=== PATIENT | female | born 1945 | race Caucasian/White ===

== ENCOUNTER 2022-11-18 08:03 | Outpatient (REF) | payer MEDICARE, SELFPAY ==
[2022-11-18 11:33] LABS: MANUAL DIFF FLAG NO
[2022-11-18 11:38] LABS: Basophils Absolute Auto 0.1 X10*3/uL (0.0-0.2); Basophils Percent Auto 1.2 % (0-2); Eosinophils Absolute Auto 0.3 X10*3/uL (0.0-0.4); Eosinophils Percent Auto 3.6 % (0-4); Hematocrit 42.2 % (37.0-47.0); Hemoglobin 13.6 g/dl (12.0-16.0); Imm Gran Abs Auto 0.04 X10*3/uL (0.00-0.03); Imm Gran Pct Auto 0.5 % (0.0-0.4); Lymphocytes Absolute Auto 2.4 X10*3/uL (1.2-4.9); Lymphocytes Percent Auto 29.3 % (20-40); Mean Corpuscular HGB Conc 32.2 g/dl (31.0-35.0); Mean Corpuscular Hemoglobin 29.2 pg (27.0-33.0); Mean Corpuscular Volume 90.8 fL (80.0-98.0); Mean Platelet Volume 11.1 fL (9.4-12.3); Monocytes Absolute Auto 0.7 X10*3/uL (0.1-1.2); Monocytes Percent Auto 9.2 % (2-11); Neutrophils Absolute Auto 4.5 x10*3/uL (2.0-8.3); Neutrophils Percent Auto 56.2 % (45-73); Platelet Count 339 X10*3/uL (160-400); Red Blood Count 4.65 X10*6/uL (4.20-5.50); Red Cell Distribution Width 13.6 % (11.0-16.0)
[2022-11-18 12:12] LABS: Estimated Average Glucose 114 mg/dL; Hemoglobin A1c % 5.6 %
[2022-11-18 12:19] LABS: Alanine Aminotransferase 25 U/L (0-31); Albumin Level 3.9 g/dL (3.5-5.0); Alkaline Phosphatase 60 U/L (39-117); Anion Gap 13 (12-20); Aspartate Amino Transferase 15 U/L (5-31); Bilirubin Total 0.3 mg/dL (0.0-1.0); Blood Urea Nitrogen 12 mg/dL (9-16); Calcium 9.4 mg/dL (8.4-10.2); Carbon Dioxide 25 mmol/L (22-29); Chloride 107 mmol/L (96-108); Cholesterol 140 mg/dL; Estimated Glomerular Filt Rate > 60; Glucose Fasting 114 mg/dL (60-99); HDL Cholesterol 40 mg/dL; LDL Cholesterol Calculated 79 mg/dl; Potassium 4.1 mmol/L (3.3-5.1); Sodium 141 mmol/L (135-145); Triglycerides 105 mg/dL
[2022-11-18 12:24] LABS: TSH reflex Free T4 1.11 uIU/mL (0.32-4.0); Vitamin D 25-OH Total 51.6 ng/mL (>30)
[2022-11-18 12:48] LABS: Folate 17.6 ng/mL (> or = 4.0); Vitamin B12 > 2000 pg/mL (200-900)
== END 2022-11-18 08:04 | disposition home or self-care (01) ==
LOC: HO.HMGCLDS 08:03
PROVIDERS: PCP Internal Medicine; Visit Provider Internal Medicine
DX: E66.9 Obesity, unspecified (principal); F32.A Depression, unspecified; F41.9 Anxiety disorder, unspecified; I10 Essential (primary) hypertension; K21.9 Gastro-esophageal reflux disease without esophagitis; M85.80 Other specified disorders of bone density and structure, unspecified site; R73.01 Impaired fasting glucose; E78.00 Pure hypercholesterolemia, unspecified
CPT/HCPCS: 36415; 80053; 80061; 82306; 82607; 82746; 83036; 84443; 85025

== ENCOUNTER 2022-12-20 13:42 | Outpatient (AMB) | payer MEDICARE, SELFPAY ==
[2022-12-20 13:57] VITALS: BP 134/74; PULSE 103; BMI 37.2
--- NOTE | 2022-12-20 13:57 | MHC.OFFVIS ---
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 female here today for pre colonoscopy screening.? Patient was sent to us by her PCP.? Patient believes that her last colonoscopy was over 10 years ago. Patient had normal Cologuard afterwards, however her last Cologuard came back positive.? Patient denies any gastrointestinal symptoms in the past or at present.? Denies any personal or family history of gastrointestinal disease, colon polyps, or cancer.? Denies history of difficulty with sedation or anesthesia in the past.? Negative for history of sleep apnea.? Denies any history of cardiac, renal, pulmonary, or hepatic disease.?? No history of infectious? diseases like hepatitis A, B, C, HIV or tuberculosis.? Patient is not on any anticoagulation therapy. [facility] Medical History Anxiety and depression Essential hypertension GERD (gastroesophageal reflux disease) History of low back pain Hypercholesterolemia Impaired fasting glucose Lumbar back pain with radiculopathy affecting left lower extremity Obesity (BMI 30-39.9) Osteopenia Paget's disease of the bone Surgical History H/O breast surgery History of appendectomy History of cholecystectomy History of lumbar discectomy History of partial hysterectomy Social History Housing: House Patient Tobacco Use Status: Former Tobacco user e-Cigarette/Vaping Use: Never Used Cognitive needs: No Hearing needs: No Vision needs: Yes Review of Systems Const Denies weight gain and Denies weight loss ENT Reports no additional complaints, Denies dysphagia and Denies odynophagia Card Reports no additional complaints Resp Reports no additional complaints GI Denies abdominal pain, Denies belching, Denies melena, Denies bloating, Denies change in bowel habits, Denies dysphagia, Denies excessive flatus, Denies dyspepsia, Denies heartburn, Denies diarrhea, Reports loose stools (Diet controlled), Denies nausea, Denies odynophagia and Denies vomiting Reports no additional complaints Musc Reports no additional complaints Neuro Reports no additional complaints Psych Reports no additional complaints Endo Reports no additional complaints Physical Exam Vital Signs: Last Vital Signs Pulse 103 H 12/20/22 13:57 BP 134/74 12/20/22 13:57 BMI result Body Mass Index 37.2 Const General: healthy appearing, no acute distress and well developed Nutritional Appearance: obese Orientation/consciousness: patient oriented x3 HEENT Head: Yes normal to inspection, Yes normocephalic and Yes atraumatic Face and sinus: Yes normal facial exam Mouth: Normal oral and palatal mucosa present Throat: Yes posterior oropharynx normal, Yes tonsils normal and Yes uvula midline Eyes General: appearance normal, both eyes and all related structures Neck Neck: Yes normal visual inspection, Yes full ROM and Yes trachea midline Thyroid: Thyroid normal Resp Effort & Inspection: normal respiratory effort, able to speak in complete sentences, no tracheal deviation and symmetric chest movement Auscultation: clear to auscultation bilaterally Cardio Rate: regular rate Heart sounds: S1 normal heart sound present, S2 normal heart sound present, no gallops and no murmurs GI Inspection: Yes normal to inspection, No distended and Yes obesity Palpation (GI): Soft to palpation, not firm, nontender and No hepatosplenomegaly present Auscultation: normal bowel sounds General: Yes no CVA tenderness Back/Spine/Pelvis Back: no CVA tenderness Skin General skin exam: elasticity normal, turgor normal and dry skin Neuro General: patient oriented x3 Psych Appearance: grossly normal Mental Status: mental status grossly normal Speech and movement: Normal speech and movement present Assessment & Plan Assessment & Plan (1) Positive colorectal cancer screening using Cologuard test: Code(s): R19.5 - Other fecal abnormalities Plan: .Patient denies any cardiac or respiratory symptoms.? Occasional postprandial loose stools depending on the food that she eats. Denies any issues with anesthesia in the past.? Denies any history of sleep apnea.? No history infectious diseases in the past or present.? Not on any anticoagulation therapy.? No family or personal history of colon cancer. ? Patient denies melena, hematochezia, unintentional weight loss or ribbon like stools.? Discussed at length the pre-procedure,? prep, diet & medications as well as what to expect prior, during and after the procedure.?? Patient is on Ozempic for weight loss. Will schedule procedure week after she takes the medication due to decreased gastric motility to prevent aspiration. Stressed the importance of good bowel prep. ?Recommended the use of Vaseline or Calmoseptine OTC & baby wipes with bowel movements to promote comfort.? ?Patient verbalizes understanding and agrees to plan of care.? She was given the opportunity to ask questions and all questions answered.? We will see her after the procedure.? Medications: New bisacodyl (Dulcolax (bisacodyl)) take 2 tabs at noon the day before your colonoscopy 10 mg (2 x 5 mg) PO ONCE 2 tabs 0RF 1 day Z12.11 - Encounter for screening for malignant neoplasm of colon polyethylene glycol 3350 (Miralax) As directed by gastroenterology department at [facility] 238 grams PO ONCE 238 grams 0RF Z12.11 - Encounter for screening for malignant neoplasm of colon methylcellulose (laxative) (Citrucel) take it with full glass of water 500 mg PO DAILY 90 tabs 2RF K59.00 - Constipation, unspecified Coding Level of Care Code New Pt Level 3 (24106) Diagnoses Positive colorectal cancer screening using Cologuard test R19.5 Time Spent (min) 40 Comment 30 minutes spent with patient and additional 10 minutes spent reviewing her records
== END 2022-12-20 15:13 | disposition home or self-care (01) ==
PROVIDERS: PCP Internal Medicine; Visit Provider Nurse Practitioner Family
DX: R19.5 Other fecal abnormalities (principal)
CPT/HCPCS: 99203

== ENCOUNTER → 2022-12-20 13:42 | Outpatient (BNVA) | payer MEDICARE, SELFPAY | PROVIDERS: PCP Internal Medicine; Visit Provider Nurse Practitioner Family | DX: R19.5 Other fecal abnormalities (principal) | CPT/HCPCS: 99202 ==

== ENCOUNTER 2023-02-02 06:23 | Day surgery (SDC) | payer MEDICARE, SELFPAY ==
[2023-01-30 15:27] VITALS: BMI 37.2
--- NOTE | 2023-02-01 13:18 | HO.ANESPROP2 ---
Documented by User: Cassie Cano NP 02/01/23 13:19 HPI - Anesthesia Eval Consult details Narrative: 77yo F for Colonoscopy PMFSH Active Problems Active Problems: All Active Problems (Updated 12/02/22 @ 14:10 by Julianna Beckwith MD) Positive colorectal cancer screening using Cologuard test (Acute) Essential hypertension (Acute) Anxiety and depression (Acute) Impaired fasting glucose (Acute) GERD (gastroesophageal reflux disease) (Acute) Osteopenia (Acute) Hypercholesterolemia (Acute) History of low back pain (Acute) Obesity (BMI 30-39.9) (Acute) Lumbar back pain with radiculopathy affecting left lower extremity (Acute) Past Medical History Medical History Anxiety and depression Essential hypertension GERD (gastroesophageal reflux disease) History of low back pain Hypercholesterolemia Impaired fasting glucose Lumbar back pain with radiculopathy affecting left lower extremity Obesity (BMI 30-39.9) Osteopenia Paget's disease of the bone Surgical History Surgical History H/O breast surgery History of appendectomy History of cholecystectomy History of lumbar discectomy History of partial hysterectomy Social History Social History Housing: House Patient Tobacco Use Status: Former Tobacco user e-Cigarette/Vaping Use: Never Used Cognitive needs: No Hearing needs: No Vision needs: Yes Meds Allergies Allergy/AdvReac Type Severity Reaction Status Date / Time oxycodone Allergy Intermediate Vomiting Verified 01/30/23 15:16 codeine AdvReac Intermediate seizure Verified 01/30/23 15:16 Home Medications Medication Instructions Recorded Confirmed Last Taken Type alpha lipoic acid 100 mg capsule 100 mg PO DAILY 11/02/22 01/30/23 Unknown History ascorbate calcium (vitamin C) 500 500 mg PO DAILY 11/02/22 01/30/23 Unknown History mg tablet calcium citrate 630 mg PO DAILY 11/02/22 01/30/23 Unknown History cholecalciferol (vitamin D3) 25 25 mcg PO DAILY 11/02/22 01/30/23 Unknown History mcg (1,000 unit) capsule echinacea 400 mg capsule 400 mg PO TID 11/02/22 01/30/23 Unknown History multivitamin 1 tab PO DAILY 11/02/22 01/30/23 Unknown History omega-3 fatty acids 1,000 mg 1,000 mg PO DAILY 11/02/22 01/30/23 Unknown History capsule pantoprazole 40 mg tablet,delayed 40 mg PO DAILY 11/02/22 01/30/23 Unknown History release procyanidolic oligomers 50 mg mg PO 11/02/22 Unknown History capsule semaglutide 1 mg/dose (2 mg/1.5 1 mg subcut QWEEK 11/02/22 01/30/23 Unknown History mL) subcutaneous pen injector (Ozempic) Exam Exam Date and Time: February 01, 2023 1318 Height,Weight and Vital Signs: Height 5 ft 1 in Weight 89.358 kg Pertinent Lab Results Pertinent Lab Results: Laboratory Tests 11/18/22 08:08 WBC 8.0 Hgb 13.6 Hct 42.2 Plt Count 339 Sodium 141 Potassium 4.1 Chloride 107 Carbon Dioxide 25 BUN 12 Creatinine 0.88 Assessment and Plan Assessment Anesthesia Assessment: Chart Reviewed Documented by User: Laith Sorensen MD 02/02/23 16:41 PMFSH Past Medical History Medical History Anxiety and depression Essential hypertension GERD (gastroesophageal reflux disease) History of low back pain Hypercholesterolemia Impaired fasting glucose Lumbar back pain with radiculopathy affecting left lower extremity Obesity (BMI 30-39.9) Osteopenia Paget's disease of the bone Functional capacity: independent ambulation Family History Family history of problems with anesthesia: No Surgical History Surgical History H/O breast surgery History of appendectomy History of cholecystectomy History of lumbar discectomy History of partial hysterectomy History of Problems with Anesthesia: No Social History Social History Housing: House Patient Tobacco Use Status: Former Tobacco user e-Cigarette/Vaping Use: Never Used Cognitive needs: No Hearing needs: No Vision needs: Yes Meds Allergies Allergy/AdvReac Type Severity Reaction Status Date / Time oxycodone Allergy Intermediate Vomiting Verified 01/30/23 15:16 codeine AdvReac Intermediate seizure Verified 01/30/23 15:16 Home Medications Medication Instructions Recorded Confirmed Last Taken Type alpha lipoic acid 100 mg capsule 100 mg PO DAILY 11/02/22 01/30/23 Unknown History ascorbate calcium (vitamin C) 500 500 mg PO DAILY 11/02/22 01/30/23 Unknown History mg tablet calcium citrate 630 mg PO DAILY 11/02/22 01/30/23 Unknown History cholecalciferol (vitamin D3) 25 25 mcg PO DAILY 11/02/22 01/30/23 Unknown History mcg (1,000 unit) capsule echinacea 400 mg capsule 400 mg PO TID 11/02/22 01/30/23 Unknown History multivitamin 1 tab PO DAILY 11/02/22 01/30/23 Unknown History omega-3 fatty acids 1,000 mg 1,000 mg PO DAILY 11/02/22 01/30/23 Unknown History capsule pantoprazole 40 mg tablet,delayed 40 mg PO DAILY 11/02/22 01/30/23 Unknown History release procyanidolic oligomers 50 mg mg PO 11/02/22 Unknown History capsule semaglutide 1 mg/dose (2 mg/1.5 1 mg subcut QWEEK 11/02/22 01/30/23 Unknown History mL) subcutaneous pen injector (Ozempic) Exam Airway Mallampati Class: IV Loose/Missing/Broken Teeth: Yes Assessment and Plan Assessment Anesthesia Assessment: Anesthesia Plan Discussed Final Anesthetic Review Family History of Problems with Anesthesia: No History of Problems with Anesthesia: No NPO: Yes ASA Class: III Final Preanesthetic Review: Meds/Allgs Chart Reviewed, Consent Obtained/Reviewed and Anes Risks/Benef Reviewed Patient Risk: Intermediate Procedure Risk: Intermediate Anesthetic Plan Anesthetic Plan: MAC: and Agree w/ Assess. and Plan Disposition: Standard PACU
[2023-02-02 06:43] VITALS: BP 158/85; PULSE 107; RESP 18; TEMP 36.4; O2SAT 94; BMI 37.8
--- NOTE | 2023-02-02 07:01 | MHC.SHP ---
Pre-Procedural Eval Section A Date of Service: 02/02/23 Section B Chief Complaint: Other fecal abnormalities Relevant Family History (Specify if Yes): No Relevant Social History: None Present Medications: see Short Stay Collaborative assessment Medical History: Significant History (Anxiety and depression Essential hypertension GERD (gastroesophageal reflux disease) History of low back pain Hypercholesterolemia Impaired fasting glucose Lumbar back pain with radiculopathy affecting left lower extremity Obesity (BMI 30-39.9) Osteopenia Paget's disease of the bone) History of Previous Operations: Relevant previous surgery/procedure and date(s) (H/O breast surgery History of appendectomy History of cholecystectomy History of lumbar discectomy History of partial hysterectomy) Allergies: Allergies Allergy/AdvReac Type Severity Reaction Status Date / Time oxycodone Allergy Intermediate Vomiting Verified 01/30/23 15:16 codeine AdvReac Intermediate seizure Verified 01/30/23 15:16 Review of Systems Sugical H&P ROS: Negative: Constitution, Cardiovascular, Respiratory, Neurological, Psychiatric, Hem-Onc, Allergic/Immunologic, Gastrointestinal, Genitourinary, Musculoskeletal, Integumentary, Endocrine and Eyes/Ears/Nose/Throat Exam Surgical H&P Exam: Normal: HEENT, Normal: Heart, Normal: Lungs, Normal: Extremities, Normal: Abdomen, Normal: Skin and Normal: Neurological Plan Diagnosis/Plan: Unchanged I have reviewed the history and physical and performed a pertinent physical examination on my patient. No changes have occurred unless specified. Time Spent With Patient Time: Total time managing care of this patient today ____ minutes.
[2023-02-02] MEDS: Lactated Ringers 1,000 ML 100 ML IVCONT (07:29)
--- NOTE | 2023-02-02 08:53 | P.OP_ITS ---
Operative Note Operative Note Date of Service: 02/02/23 Narrative: Operative Information Procedure Description: Colonoscopy Indication: pos cologuard Anesthesia: MAC COLONOSCOPY Instrument: Olympus variable stiffness pediatric scope 190L Colonoscopy Monitoring: Vital signs and clinical assessment, continuous EKG monitoring, Pulse oximetry, Carbon Dioxide monitoring and blood pressure monitoring were done throughout the procedure. Colon withdrawal time was 16 minutes. Procedure: The patient was placed in the left lateral decubitis position and pre-procedure medications were administered. After a digital rectal examination of the ano-rectum, the video colonoscope was inserted into the rectum and advanced through the colon to the cecum/TI. The colonoscope was slowly withdrawn in a retrograde panoramic fashion and the colon mucosa was carefully examined including a retroflexed view of the rectum. Findings and interventions are described below. 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 1 = Portion of mucosa of the colon segment seen, but other areas of the colon segment not well seen due to staining, residual stool and/or opaque liquid. 2 = Minor amount of residual staining, small fragments of stool and/or opaque liquid, but mucosa of colon segment seen well. 3 = Entire mucosa of colon segment seen well with no residual staining, small fragments of stool or opaque liquid) Impression and Post Procedure Diagnosis: polyp internal hemorrhoids diverticular disease AVM Plan: High fiber diet leaflet Avoid straining at stool, epsom salts and sitz bath, anusol supps or cream Repeat Colonoscopy in 3-5 years if health allows and patient agreeable or earlier if clinically indicated Above findings were reviewed with the patient and relevant handouts were provided if indicated.
[2023-02-02 08:57] VITALS: BP 148/85; PULSE 115; RESP 16; TEMP 37; O2SAT 96
[2023-02-02 09:13] VITALS: BP 149/90; PULSE 118; RESP 18; O2SAT 96
[2023-02-02 09:27] VITALS: BP 143/78; PULSE 104; RESP 18; O2SAT 96
[2023-02-02 09:45] VITALS: BP 157/83; PULSE 113; RESP 18; O2SAT 96
[2023-02-02 09:58] VITALS: BP 157/83; PULSE 108; RESP 18; TEMP 37; O2SAT 96
== END 2023-02-02 10:45 | disposition home or self-care (01) ==
PROVIDERS: PCP Internal Medicine; Visit Provider Internal Medicine Gastroenterology
PROC: 0DJD8ZZ Inspection of Lower Intestinal Tract, Via Natural or Artificial Opening Endoscopic (ICD-10-PCS; CPT 45378; principal; 2023-02-02 07:30)
DX: R19.5 Other fecal abnormalities (principal); D12.5 Benign neoplasm of sigmoid colon; K57.30 Diverticulosis of large intestine without perforation or abscess without bleeding; K64.0 First degree hemorrhoids; K55.20 Angiodysplasia of colon without hemorrhage; I10 Essential (primary) hypertension; K21.9 Gastro-esophageal reflux disease without esophagitis; E78.00 Pure hypercholesterolemia, unspecified; R73.01 Impaired fasting glucose; M88.9 Osteitis deformans of unspecified bone; Z79.899 Other long term (current) drug therapy; Z88.5 Allergy status to narcotic agent; Z90.49 Acquired absence of other specified parts of digestive tract; Z98.890 Other specified postprocedural states; Z87.891 Personal history of nicotine dependence
CPT/HCPCS: 45385; 45381; 88305; J2250; J2765

== ENCOUNTER → 2023-02-02 06:23 | Outpatient (BNV) | payer MEDICARE, SELFPAY | PROVIDERS: PCP Internal Medicine; Visit Provider Internal Medicine Gastroenterology | DX: Z12.11 Encounter for screening for malignant neoplasm of colon (principal); D12.5 Benign neoplasm of sigmoid colon; K57.30 Diverticulosis of large intestine without perforation or abscess without bleeding; K64.9 Unspecified hemorrhoids | CPT/HCPCS: 45381; 45385 ==

== ENCOUNTER 2023-02-17 14:07 | Outpatient (AMB) | payer MEDICARE, SELFPAY ==
--- NOTE | 2023-02-17 14:11 | A.OFFVIS_ITS ---
Intake Vital Signs 02/17/23 14:14 Height 5 ft Weight 200 lb BMI 39.1 BP 138/63 Blood Pressure Location Lt brachial Position Sitting Pulse 97 Intake Visit Reasons: s/P [place]; Dr. Tijerina Intake Note: Patient follow up for Colonoscopy results. Patient cc: acid reflex, and some diarrhea. Denies any other GI issues. Area Counselor Required: No Accompanied by: Self / Same As Patient Allergies oxycodone Allergy (Intermediate, Verified 02/17/23 14:10) Vomiting codeine Adverse Reaction (Intermediate, Verified 02/17/23 14:10) seizure HPI s/P [place]; Dr. Tijerina HPI Details LAST VISIT Positive colorectal cancer screening using Cologuard test Patient denies any cardiac or respiratory symptoms.? Occasional postprandial loose stools depending on the food that she eats. Denies any issues with a nesthesia in the past.? Denies any history of sleep apnea.? No history infectious diseases in the past or present.? Not on any anticoagulation therapy.? No family or personal history of colon cancer. ? Patient denies melena, hematochezia, unintentional weight loss or ribbon like stools.? Discussed at length the pre-procedure,? prep, diet & medications as well as what to expect prior, during and after the procedure.?? Patient is on Ozempic for weight loss. Will schedule procedure week after she takes the medication due to decreased gastric motility to prevent aspiration. Stressed the importance of good bowel prep. ?Recommended the use of Vaseline or Calmoseptine OTC & baby wipes with bowel movements to promote comfort.? ?Patient verbalizes understanding and agrees to plan of care.? She was given the opportunity to ask questions and all questions answered.? We will see her after the procedure.? 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 1 = Portion of mucosa of the colon segme nt seen, but other areas of the colon segment not well seen due to staining, residual stool and/or opaque liquid. 2 = Minor amount of residual staining, s mall fragments of stool and/or opaque liquid, but mucosa of colon segment seen well. 3 = Entire mucosa of colon segment seen well with no residual staining, small fragments of stool or opaque liquid) Impression and Post Procedure Diagnosis: polyp internal hemorrhoids diverticular disease AVM Plan: High fiber diet leaflet Avoid straining at stool, epsom salts and sitz bath, anusol supps or cream Repeat Colonoscopy in 3-5 years if health allows and patient agreeable or earlier if clinically indicated PATHOLOGY RESULTS: Diagnosis Colon, sigmoid, polypectomy: Tubular adenoma; negative for high-grade dysplasia. [facility], [facility] Medical History (Updated 02/17/23 @ 15:38 by Emily Terry, [facility]) Tubular adenoma History of adenomatous polyp of colon Lumbar back pain with radiculopathy affecting left lower extremity Obesity (BMI 30-39.9) History of low back pain Hypercholesterolemia Paget's disease of the bone Osteopenia GERD (gastroesophageal reflux disease) Impaired fasting glucose Anxiety and depression Essential hypertension Surgical History History of partial hysterectomy History of appendectomy History of cholecystectomy H/O breast surgery History of lumbar discectomy Social History Housing: House Patient Tobacco Use Status: Former Tobacco user e-Cigarette/Vaping Use: Never Used Cognitive needs: No Hearing needs: No Vision needs: Yes Review of Systems Const Denies weight gain and Denies weight loss ENT Reports no additional complaints, Denies dysphagia and Denies odynophagia Card Reports no additional complaints Resp Reports no additional complaints GI Denies abdominal pain, Denies belching, Denies melena, Reports bloating, Reports constipation, Denies dysphagia, Denies excessive flatus, Denies dyspepsia, Reports heartburn, Denies diarrhea, Reports loose stools, Denies nausea, Denies odynophagia and Denies vomiting Reports no additional complaints Musc Reports no additional complaints Neuro Reports no additional complaints Psych Reports no additional complaints Endo Reports no additional complaints Physical Exam Vital Signs: Last Vital Signs Pulse 97 02/17/23 14:14 BP 138/63 02/17/23 14:14 BMI result Body Mass Index 39.1 Const General: cooperative, healthy appearing and comfortable Nutritional Appearance: obese Orientation/consciousness: patient oriented x3 Limitations: no limitations HEENT Head: Yes normal to inspection Ears: hearing grossly normal bilaterally General nose exam: Normal external nose present Face and sinus: Yes normal facial exam Mouth: Normal oral and palatal mucosa present Throat: Yes posterior oropharynx normal Eyes General: appearance normal, both eyes and all related structures Eyelids: Yes eyelids normal Conjunctivae: conjunctivae normal Sclerae: sclerae normal Pupils: Equal, round and reactive pupils present Neck Neck: Yes normal visual inspection, Yes full ROM, Yes no lymphadenopathy, Yes trachea midline and Yes supple Thyroid: Thyroid normal Lymphatic: no lymphadenopathy noted Chest Chest palpation & inspection: normal inspection of the chest Resp Effort & Inspection: normal respiratory effort and able to speak in complete sentences Auscultation: clear to auscultation bilaterally Cardio Rate: regular rate Rhythm: regular rhythm Heart sounds: S1 normal heart sound present and S2 normal heart sound present GI Inspection: Yes normal to inspection, No distended and Yes obesity Palpation (GI): No hepatosplenomegaly present and No Rebound tenderness present Percussion: Yes normal to percussion Auscultation: normal bowel sounds General: Yes no CVA tenderness Back/Spine/Pelvis Back: no CVA tenderness Cervical Spine: cervical ROM normal and No cervical muscular tenderness Thoracic/Lumbar Spine: thoracic and lumbar spine normal to inspection Skin General skin exam: no rashes or lesions noted, elasticity normal and turgor normal Neuro General: patient oriented x3 Cranial nerves: Yes Equal, round and reactive pupils present Extrem General: Yes normal to inspection, Yes full ROM and Yes capillary refill normal Psych Appearance: grossly normal Mental Status: mental status grossly normal Speech and movement: Normal speech and movement present Assessment & Plan Assessment & Plan (1) Tubular adenoma: Code(s): D36.9 - Benign neoplasm, unspecified site Plan: One tubular adenoma found in sigmoid colon. Clip placed. Patient will need to repeat colonoscopy in 3 years, sooner if clinically necessary. (2) GERD (gastroesophageal reflux disease): Code(s): K21.9 - Gastro-esophageal reflux disease without esophagitis Qualifiers: Esophagitis presence: esophagitis presence not specified Qualified Code(s): K21.9 - Gastro-esophageal reflux disease without esophagitis Plan: Occasional acid reflux, long treatment with pantoprazole. Patient will try to avoid dietary triggers. She would like to stay on at. Discussed with patient the importance of avoiding dietary triggers and late night snacking. Staying upright for minimum 3 hours after meals discussed with patient (3) IBS (irritable bowel syndrome): Code(s): K58.9 - Irritable bowel syndrome without diarrhea Qualifiers: Irritable bowel syndrome type: with both diarrhea and constipation Qualified Code(s): K58.2 - Mixed irritable bowel syndrome Plan: Occasional loose stools postprandially then constipation. Discussed with patient avoiding dietary triggers were low FODMAP diet discussed with patient. List of food of recommended as well as list of food to avoid given to patient. (4) Postprandial diarrhea: Code(s): K52.9 - Noninfective gastroenteritis and colitis, unspecified Plan: Occasional postprandial loose stools. However patient reports that she is constipated and does not feel like she empties her bowels completely. Patient tried Citrucel in the past and felt bounded for few days. Patient has loose stools postprandial room most likely related to food and the fact that she is ac tually constipated. Will send her script for MiraLax so she can empty her bowels completely. Patient will call if she feels like she is unable to empty her bowels completely. Patient was also encouraged to increase fluid intake and activity to promote better bowel motility. I will see her in 6 months, sooner on as needed basis. Patient is agreeable to this plan and verbalizes understanding of instructions. She was given the opportunity to ask questions and all questions answered. Thank you for allowing me to participate in her care Medications: New polyethylene glycol 3350 (Miralax) 17 grams PO DAILY 510 grams 2RF Coding Level of Care Code Est Pt Level 4 (21297) Diagnoses Tubular adenoma D36.9 Gastroesophageal reflux disease, unspecified whether esophagitis present K21.9 Esophagitis presence: esophagitis presence not specified Irritable bowel syndrome with both constipation and diarrhea K58.2 Irritable bowel syndrome type: with both diarrhea and constipation Postprandial diarrhea K52.9 Time Spent (min) 35 Comment 20 minutes spent with patient and additional 15 minutes spent reviewing her records
[2023-02-17 14:14] VITALS: BP 138/63; PULSE 97; BMI 39.1
== END 2023-02-17 14:50 | disposition home or self-care (01) ==
PROVIDERS: PCP Internal Medicine; Visit Provider Nurse Practitioner Family
DX: D12.5 Benign neoplasm of sigmoid colon (principal); K21.9 Gastro-esophageal reflux disease without esophagitis; K58.0 Irritable bowel syndrome with diarrhea; K55.20 Angiodysplasia of colon without hemorrhage
CPT/HCPCS: 99214

== ENCOUNTER → 2023-02-17 14:07 | Outpatient (BNVA) | payer MEDICARE, SELFPAY | PROVIDERS: PCP Internal Medicine; Visit Provider Nurse Practitioner Family | DX: K21.9 Gastro-esophageal reflux disease without esophagitis (principal); K58.2 Mixed irritable bowel syndrome; K52.9 Noninfective gastroenteritis and colitis, unspecified; D36.9 Benign neoplasm, unspecified site | CPT/HCPCS: 99212 ==

== ENCOUNTER 2023-03-02 09:12 | Outpatient (REF) | payer MEDICARE, SELFPAY ==
[2023-03-02 12:10] LABS: Anion Gap 13 (12-20); Blood Urea Nitrogen 12 mg/dL (9-16); Calcium 9.3 mg/dL (8.4-10.2); Carbon Dioxide 25 mmol/L (22-29); Chloride 107 mmol/L (96-108); Estimated Glomerular Filt Rate > 60; Glucose Fasting 144 mg/dL (60-99); Potassium 4.3 mmol/L (3.3-5.1); Sodium 141 mmol/L (135-145)
[2023-03-02 12:37] LABS: Vitamin B12 836 pg/mL (200-900)
== END 2023-03-02 09:13 | disposition home or self-care (01) ==
LOC: HO.HMGCLDS 09:12
PROVIDERS: PCP Internal Medicine; Visit Provider Internal Medicine
DX: I10 Essential (primary) hypertension (principal); R74.8 Abnormal levels of other serum enzymes
CPT/HCPCS: 36415; 80048; 82607; 82746

== ENCOUNTER 2023-03-07 12:57 | Outpatient (AMB) | payer MEDICARE, SELFPAY ==
--- NOTE | 2023-03-07 13:03 | A.OFFPC_ITS ---
Vital Signs 03/07/23 13:05 Height 5 ft Weight 201 lb BMI 39.3 BP 120/68 Blood Pressure Location Lt brachial Position Sitting Pulse 99 Pulse Source Pulse Oximeter Pulse Oximetry (%) 95 Oxygen Delivery Method Room Air Intake Visit Reasons: 3 mo followup lipids, depression Intake Note: Pt is here today for her 3 mo. f/u lipids and depression Allergies oxycodone Allergy (Intermediate, Verified 03/07/23 13:14) Vomiting codeine Adverse Reaction (Intermediate, Verified 03/07/23 13:14) seizure Medication List - Last Reconciled 03/07/23 by Sharron Roque MD alpha lipoic acid 100 mg PO DAILY ascorbate calcium (vitamin C) 500 mg PO DAILY calcium citrate 630 mg PO DAILY cholecalciferol (vitamin D3) 25 mcg PO DAILY citalopram 20 mg PO DAILY echinacea 400 mg PO TID methylcellulose (laxative) (Citrucel) 500 mg PO DAILY multivitamin 1 tab PO DAILY olmesartan 40 mg PO DAILY omega-3 fatty acids 1,000 mg PO DAILY pantoprazole 40 mg PO DAILY polyethylene glycol 3350 (Miralax) 17 grams PO DAILY Tobacco use date assessed: 03/07/23 Fall risk assessment: No Falls in past year Last assessed Fall Risk: 03/07/23 Dental Screening Dental Screen Date: 03/07/23 Did you have a dental visit in the last 12 months?: Yes Did you have a dental problem in the last 6 months where you did not have access to dental care?: No Was dental information given to patient?: Patient has dentist HPI 3 mo followup lipids, depression HPI Details 77-year-old lady here today for follow-u p on her hypertension, lipids, prediabetes, and depression. She is currently taking Charlotte 3 fatty acids citalopram and olmesartan, with blood pressure within normal limits, and patient states depression is well controlled on current meds. She had recent fasting labs done which showed electrolytes, renal function, vitamin B12 and vitamin-D level within normal limits, but fasting glucose was at 144 mg/dL. Her hemoglobin A1c however is at 5.8%. Complains of decreased hearing, would like a referral to ENT. Complains of getting up every 2 hours at night to urinate, and has had several accidents her in she would lose bladder control while sleeping. She however states that during the day she does not go to the bathroom to urinate frequently. Has tried not to drink any fluids after 18:00. [facility] Medical History (Updated 03/08/23 @ 01:36 by Sharron Roque MD) Hearing impairment Tubular adenoma History of adenomatous polyp of colon Lumbar back pain with radiculopathy affecting left lower extremity Obesity (BMI 30-39.9) History of low back pain Hypercholesterolemia Paget's disease of the bone Osteopenia GERD (gastroesophageal reflux disease) Impaired fasting glucose Anxiety and depression Essential hypertension Surgical History History of partial hysterectomy History of appendectomy History of cholecystectomy H/O breast surgery History of lumbar discectomy Social History Housing: House Patient Tobacco Use Status: Former Tobacco user e-Cigarette/Vaping Use: Never Used service: No Current occupational status: retired Cognitive needs: No Hearing needs: No Vision needs: Yes Questionnaire PHQ-9 Over the last 2 weeks, how often have you been bothered by any of the following problems? 1. Little interest or pleasure in doing things: not at all 2. Feeling down, depressed, or hopeless: not at all 3. Trouble falling or staying asleep, or sleeping too much: not at all 4. Feeling tired or having little energy: not at all 5. Poor appetite or overeating: not at all 6. Feeling bad about yourself - or that you are a failure or have let yourself or your family down: not at all 7. Trouble concentrating on things, such as reading the newspaper or watching television: not at all 8. Moving or speaking so slowly that other people could have noticed. Or the opposite - being so fidgety or restless that you have been moving around a lot more than usual: not at all 9. Thoughts that you would be better off or of hurting yourself in some way: not at all Total score: 0 Depression Screening Interpretation: Negative Depression Screening Done: Yes 60536 - PHQ-9 Billing: Yes Source: Developed by Drs. Dinh Trejo, Nicole Bhagat, Bari Sheikh and colleagues, with an educational melvin from [employer] Thrive Questionnaire Date Thrive assessed: 03/07/23 What is your living situation today?: I have a steady place to live Within the past 12 months, did the food you bought not last and you didn't have the money to get more?: Never true Within the past 12 months, did you worry whether your food would run out before you got money to buy more?: Never true Do you have trouble paying for medicines?: No Do you have trouble getting transportation to medical appointments?: No Do you have trouble paying your heating and electricity bill?: No Do you have trouble taking care of your child, family member or friend?: No Do you have trouble with day-to-day activities such as bathing, preparing meals, shopping, managing finances, etc.?: No Are you currently unemployed and looking for a job?: No Are you interested in more education?: No AUDIT C Alcohol Use Questionnaire (AUDIT-C) 1. How often do you have a drink containing alcohol?: Monthly or less 2. How many drinks containing alcohol do you have on a typical day when you are drinking?: 1 or 2 3. How often do you have six or more drinks on one occasion?: Never Total Score: 1 PARISH-7 AMB Questionnaire PARISH-7 Date PARISH - 7 assessed: 03/07/23 Feeling nervous, anxious, or on edge: 0 = Not at all Not being able to stop or control worryin = Not at all Worrying too much about different things: 0 = Not at all Trouble relaxin = Not at all Being so restless that it is hard to sit still: 0 = Not at all Becoming easily annoyed or irritable: 0 = Not at all Feeling afraid as if something awful might happen: 0 = Not at all Total PARISH-7 score (0-4 normal; 5-9 mild; 10-14 moderate; 15-21 severe): 0 Source: Developed by Drs. Dinh Trejo, Nicole Bhagat, Bari Sheikh and colleagues, with an educational melvin from [employer]. Review of Systems Const Reports no additional complaints Eyes Reports no additional complaints ENT Reports as per HPI, Denies dysphagia and Denies odynophagia Card Denies chest pain at rest, Denies chest pain with activity, Denies irregular heart rhythm and Denies lightheadedness Resp Reports no additional complaints GI Denies abdominal pain, Denies belching, Denies melena, Reports bloating, Reports constipation, Denies dysphagia, Denies excessive flatus, Denies dyspepsia, Reports heartburn, Denies diarrhea, Reports loose stools, Denies nausea, Denies odynophagia and Denies vomiting Reports as per HPI, Denies hematuria, Denies difficulty voiding, Denies dysuria and Denies urinary hesitancy Musc Reports no additional complaints Neuro Reports no additional complaints Psych Reports no additional complaints Endo Reports no additional complaints Severino/Lymph Reports no additional complaints Physical exam (Primary Care) Vital Signs: Last Vital Signs Pulse 99 03/07/23 13:05 BP 120/68 03/07/23 13:05 Pulse Ox 95 03/07/23 13:05 Oxygen Delivery Method Room Air 03/07/23 13:05 BMI result Body Mass Index 39.3 Tobacco/Smoking Status: Tobacco use Status Tobacco use date assessed 03/07/23 03/07/23 13:10 Patient Tobacco Use Status Former Tobacco user 03/07/23 13:05 e-Cigarette/Vaping Use Never Used 03/07/23 13:05 PHQ-9: PHQ-9 Score PHQ-9: Total score 0 03/07/23 13:39 Depression Screening Interpretation: Negative Thrive Assessment: Date of Thrive Assessment Date Thrive assessed 03/07/23 03/07/23 13:10 Const Other: Obese, alert oriented x3, no acute cardiorespiratory distress, ambulatory with normal gait HENMT Head: Yes normocephalic Ears: external ears normal, TM's normal bilaterally and EAC's normal General nose exam: Normal external nose present Face and sinus: Yes face symmetric Mouth: Normal oral and palatal mucosa present, oropharynx normal and moist mucous membranes Eyes General: appearance normal, both eyes and all related structures Neck Neck: Yes full ROM, Yes no lymphadenopathy, Yes trachea midline and Yes supple Thyroid: Thyroid normal Carotids: normal carotid upstroke Lymphatic: no lymphadenopathy noted Resp Auscultation: clear to auscultation bilaterally Cardio Rate: regular rate Rhythm: regular rhythm Heart sounds: S1 normal heart sound present and S2 normal heart sound present GI Inspection: Yes obesity and Yes scar (Right upper quadrant status post cholecystectomy) Palpation (GI): Soft to palpation and Tenderness to palpation present (GI) Auscultation: normal bowel sounds General: Yes no CVA tenderness Back/Spine/Pelvis Back: no CVA tenderness Thoracic/Lumbar Spine: thoraco-lumbar ROM normal and straight leg raise negative bilaterally Extrem General: Yes full ROM, Yes no clubbing, cyanosis or edema and Yes normal gait Psych Appearance: grossly normal and well kempt Mental Status: mental status grossly normal Speech and movement: Normal speech and movement present Affect: normal affect Attitude: cooperative Results AMB Hemoglobin A1c AMB Hemoglobin A1c 5.8 % Last Edit by Myrna Drake CMA on 03/07/23 13: 39 Results Reviewed Results Reviewed: Laboratory Last Values Hgb A1c (Clinic) 5.8 % (4.0-6.0) 03/07/23 13:38 RUN: 03/07/23 1312 PAGE 1 [facility] [address] [place] [id number] Software Engineering Specialist: Javier Malik M.D. Specimen Inquiry Name: Yahaira Herring Age/Sex: 77/F : 1945 Unit#: [id number] Attend Dr: Sharron Roque MD Re03/02/23 Status: DEP REF Location: [facility] Disch: SPEC : [id number] KATELYNN: 03/02/23 STATUS: COMP REQ : [id number] RECD: 03/02/[address]: Sharron Roque MD COMP: 03/02/23 ENTERED: 03/02/[address] [facility] [address]: ORDERED: Met Prof Fast Test Result Flag Reference Site Sodium 141 135-145 mmol/L Potassium 4.3 3.3-5.1 mmol/L CL 107 96-108 mmol/L CO2 25 22-29 mmol/L Gap 13 12-20 BUN 12 9-16 mg/dL Creat 0.85 0.5-1.4 mg/dL EGFR > 60 NOTE: For -[place] individuals, multiply the result by 1.210. Chronic Kidney Disease: Estimated GFR < 60 mL/min/1.73m2 Severe Kidney Disease: Estimated GFR < 15 mL/min/1.73m2 FBS 144 H 60-99 mg/dL A fasting glucose of 126 mg/dl or greater on more than one occasion is considered diagnostic of diabetes. CA 9.3 8.4-10.2 mg/dL Assessment and Plan Assessment & Plan (1) Hearing impairment: Code(s): H91.90 - Unspecified hearing loss, unspecified ear Qualifiers: Hearing loss type: unspecified Laterality: bilateral Qualified Code(s): H91.93 - Unspecified hearing loss, bilateral Plan: Referred to Dr. Carrera (2) Anxiety and depression: Code(s): F41.9 - Anxiety disorder, unspecified; F32.A - Depression, unspecified Plan: Controlled on citalopram (3) Essential hypertension: Code(s): I10 - Essential (primary) hypertension Plan: Blood pressure at goal of less than 130/80. Continue with current medication. Reinforced importance of following a low sodium diet, getting regular exercise, and lowering stress levels. (4) Impaired fasting glucose: Code(s): R73.01 - Impaired fasting glucose Plan: Your fasting blood sugars elevated above 100 mg/dL. Hemoglobin A1c however is at 5.8% which is within normal limits. Impaired glucose metabolism O2 at risk for developing diabetes mellitus type 2, as well as heart attack and stroke later on. Lifestyle changes at just weight loss, healthy eating habits, and regular exercise are important, and can prevent the progression to diabetes (5) Hypercholesterolemia: Code(s): E78.00 - Pure hypercholesterolemia, unspecified Plan: Fasting lipid panel ordered, continued on Charlotte 3 fatty acid supplements, in addition to adhering to a low-cholesterol diet and getting regular exercise. (6) Obesity (BMI 30-39.9): Code(s): E66.9 - Obesity, unspecified Orders: Orders Alanine Aminotransferase 6 Months E66.9 - Obesity, unspecified, E78.00 - Pure hypercholesterolemia, unspecified, F32.A - Depression, unspecified, F41.9 - Anxiety disorder, unspecified, I10 - Essential (primary) hypertension, M85.80 - Other specified disorders of bone density and structure, unspecified site, R73.01 - Impaired fasting glucose, Z78.0 - Asymptomatic menopausal state Aspartate Amino Transferase 6 Months E66.9 - Obesity, unspecified, E78.00 - Pure hypercholesterolemia, unspecified, F32.A - Depression, unspecified, F41.9 - Anxiety disorder, unspecified, I10 - Essential (primary) hypertension, M85.80 - Other specified disorders of bone density and structure, unspecified site, R7 3.01 - Impaired fasting glucose, Z78.0 - Asymptomatic menopausal state Basic Metabolic Panel Fasting 6 Months E66.9 - Obesity, unspecified, E78.00 - Pure hypercholesterolemia, unspecified, F32.A - Depression, unspecified, F41.9 - Anxiety disorder, unspecified, I10 - Essential (primary) hypertension, M85.80 - Other specified disorders of bone density and structure, unspecified site, R73.01 - Impaired fasting glucose, Z78.0 - Asymptomatic menopausal state Lipid Panel 6 Months E66.9 - Obesity, unspecified, E78.00 - Pure hypercholesterolemia, unspecified, F32.A - Depression, unspecified, F41.9 - Anxiety disorder, unspecified, I10 - Essential (primary) hypertension, M85.80 - Other specified disorders of bone density and structure, unspecified site, R73.01 - Impaired fasting glucose, Z78.0 - Asymptomatic menopausal state Vitamin D 25-OH Total 6 Months E66.9 - Obesity, unspecified, E78.00 - Pure hypercholesterolemia, unspecified, F32.A - Depression, unspecified, F41.9 - Anxiety disorder, unspecified, I10 - Essential (primary) hypertension, M85.80 - Other specified disorders of bone density and structure, unspecified site, R73.01 - Impaired fasting glucose, Z78.0 - Asymptomatic menopausal state Vitamin B12 and Folate 6 Months E66.9 - Obesity, unspecified, E78.00 - Pure hypercholesterolemia, unspecified, F32.A - Depression, unspecified, F41.9 - Anxiety disorder, unspecified, I10 - Essential (primary) hypertension, M85.80 - Other specified disorders of bone density and structure, unspecified site, R73.01 - Impaired fasting glucose, Z78.0 - Asymptomatic menopausal state AMB Hemoglobin A1c 03/07/23 R73.01 - Impaired fasting glucose Hemoglobin A1c 6 Months E66.9 - Obesity, unspecified, E78.00 - Pure hypercholesterolemia, unspecified, F32.A - Depression, unspecified, F41.9 - Anxiety disorder, unspecified, I10 - Essential (primary) hypertension, M85.80 - Other specified disorders of bone density and structure, unspecified site, R73.01 - Impaired fasting glucose, Z78.0 - Asymptomatic menopausal state Referrals Ear/Nose/Throat Referral H91.90 - Unspecified hearing loss, unspecified ear Medications: Refilled citalopram 20 mg PO DAILY 90 tabs 3RF Coding Level of Care Code Est Pt Level 4 (93440) Diagnoses Bilateral hearing loss, unspecified hearing loss type H91.93 Hearing loss type: unspecified Laterality: bilateral Anxiety and depression F41.9; F32.A Essential hypertension I10 Impaired fasting glucose R73.01 Hypercholesterolemia E78.00 Obesity (BMI 30-39.9) E66.9
[2023-03-07 13:05] VITALS: BP 120/68; PULSE 99; O2SAT 95; BMI 39.3
== END 2023-03-07 13:52 | disposition home or self-care (01) ==
PROVIDERS: PCP Internal Medicine; Visit Provider Internal Medicine
DX: R73.01 Impaired fasting glucose (principal)
CPT/HCPCS: 83036; 99214

== ENCOUNTER 2023-08-04 18:19 | Emergency (ER) | payer MEDICARE, SELFPAY | END 2023-08-04 19:56 | disposition left against medical advice (07) | PROVIDERS: Emergency Provider Emergency Medicine; PCP Internal Medicine | DX: L98.9 Disorder of the skin and subcutaneous tissue, unspecified (principal) ==

== ENCOUNTER 2023-08-31 10:44 | Outpatient (AMB) | payer MEDICARE, SELFPAY ==
[2023-08-31 11:30] VITALS: BP 122/78; PULSE 89; O2SAT 94; BMI 40.2
--- NOTE | 2023-08-31 11:30 | MHC.PC.OV ---
Vital Signs 08/31/23 11:30 Height 5 ft Weight 206 lb BMI 40.2 BP 122/78 Blood Pressure Location Rt brachial Position Sitting Pulse 89 Pulse Source Pulse Oximeter Pulse Oximetry (%) 94 Oxygen Delivery Method Room Air Intake Visit Reasons: 6mo. f/u anxiety & depression Intake Note: Pt is here today to f/u anxiety and depression Allergies oxycodone Allergy (Intermediate, Verified 08/31/23 11:54) Vomiting codeine Adverse Reaction (Intermediate, Verified 08/31/23 11:54) seizure Medication List - Last Reconciled 08/31/23 by Sharron Roque MD alpha lipoic acid 100 mg PO DAILY ascorbate calcium (vitamin C) 500 mg PO DAILY calcium citrate 630 mg PO DAILY cholecalciferol (vitamin D3) 25 mcg PO DAILY citalopram 20 mg PO DAILY echinacea 400 mg PO TID multivitamin 1 tab PO DAILY olmesartan 40 mg PO DAILY omega-3 fatty acids 1,000 mg PO DAILY pantoprazole 40 mg PO DAILY Tobacco use date assessed: 08/31/23 Fall risk assessment: No Falls in past year Last assessed Fall Risk: 08/31/23 Dental Screening Dental Screen Date: 08/31/23 Did you have a dental visit in the last 12 months?: Yes Did you have a dental problem in the last 6 months where you did not have access to dental care?: Yes Was dental information given to patient?: Patient has dentist HPI 6mo. f/u anxiety & depression HPI Details 69-year-old lady here today for follow-up on her anxiety depression. She states that she has been on citalopram 20 mg per tablet once a day now for the last several years, would like to see if she can wean herself off the medication as she has been feeling well, with no further anxiety or mood swings reported. Patient does not see any therapist. She is also here for follow-up on her hypertension, hyperlipidemia and prediabetes. She states that she has not been getting any regular exercise done due to recurrent pain in her knee and back, admits also that to not following any particular diet. [facility] Medical History (Updated 08/31/23 @ 16:04 by Sharron Roque MD) Hearing impairment History of adenomatous polyp of colon Lumbar back pain with radiculopathy affecting left lower extremity Obesity (BMI 30-39.9) Hypercholesterolemia Paget's disease of the bone Osteopenia GERD (gastroesophageal reflux disease) Impaired fasting glucose Anxiety and depression Essential hypertension Surgical History History of partial hysterectomy History of appendectomy History of cholecystectomy H/O breast surgery History of lumbar discectomy Social History Housing: House Patient Tobacco Use Status: Former Tobacco user e-Cigarette/Vaping Use: Never Used service: No Current occupational status: retired Cognitive needs: No Hearing needs: No Vision needs: Yes Questionnaire PHQ-9 Over the last 2 weeks, how often have you been bothered by any of the following problems? 1. Little interest or pleasure in doing things: not at all 2. Feeling down, depressed, or hopeless: not at all 3. Trouble falling or staying asleep, or sleeping too much: not at all 4. Feeling tired or having little energy: several days 5. Poor appetite or overeating: not at all 6. Feeling bad about yourself - or that you are a failure or have let yourself or your family down: not at all 7. Trouble concentrating on things, such as reading the newspaper or watching television: not at all 8. Moving or speaking so slowly that other people could have noticed. Or the opposite - being so fidgety or restless that you have been moving around a lot more than usual: not at all 9. Thoughts that you would be better off or of hurting yourself in some way: not at all Total score: 1 Depression Screening Interpretation: Negative (Controlled with citalopram, would like to be weaned off medication) Depression Screening Done: Yes 83815 - PHQ-9 Billing: Yes Source: Developed by Drs. Dinh Trejo, Nicole Bhagat, Bari Sheikh and colleagues, with an educational melvin from [employer]. Thrive Questionnaire Date Thrive assessed: 08/31/23 I am a: Patient What is your living situation today?: I have a steady place to live Within the past 12 months, did the food you bought not last and you didn't have the money to get more?: Never true Within the past 12 months, did you worry whether your food would run out before you got money to buy more?: Never true Do you have trouble paying for medicines?: No Do you have trouble getting transportation to medical appointments?: No Do you have trouble paying your heating and electricity bill?: No Do you have trouble taking care of your child, family member or friend?: No Do you have trouble with day-to-day activities such as bathing, preparing meals, shopping, managing finances, etc.?: No Are you currently unemployed and looking for a job?: No Are you interested in more education?: No THRIVE Score: 0 AUDIT C Alcohol Use Questionnaire (AUDIT-C) 1. How often do you have a drink containing alcohol?: Never Total Score: 0 PARISH-7 AMB Questionnaire PARISH-7 Date PARISH - 7 assessed: 08/31/23 Feeling nervous, anxious, or on edge: 0 = Not at all Not being able to stop or control worryin = Not at all Worrying too much about different things: 0 = Not at all Trouble relaxin = Not at all Being so restless that it is hard to sit still: 0 = Not at all Becoming easily annoyed or irritable: 0 = Not at all Feeling afraid as if something awful might happen: 0 = Not at all Total PARISH-7 score (0-4 normal; 5-9 mild; 10-14 moderate; 15-21 severe): 0 Source: Developed by Drs. Dinh Trejo, Nicole Bhagat, Bari Sheikh and colleagues, with an educational melvin from [employer]. PARISH-7 Assessment Billing PARISH-7 Assessment Tool: PARISH-7 Assessment 68038 Review of Systems Const Reports no additional complaints Eyes Reports no additional complaints Card Denies chest pain at rest, Denies chest pain with activity, Denies irregular heart rhythm and Denies lightheadedness Resp Reports no additional complaints Denies hematuria, Denies difficulty voiding, Denies dysuria and Denies urinary hesitancy Musc Details: Recurrent pain stiffness in knees and lower back Neuro Reports no additional complaints Psych Reports no additional complaints Endo Reports no additional complaints Severino/Lymph Reports no additional complaints Aller/Immun Reports no additional complaints Physical exam (Primary Care) Vital Signs: Last Vital Signs Pulse 89 08/31/23 11:30 BP 122/78 08/31/23 11:30 Pulse Ox 94 04/11/24 11:30 Oxygen Delivery Method Room Air 08/31/23 11:30 BMI result Body Mass Index 40.2 Tobacco/Smoking Status: Tobacco use Status Tobacco use date assessed 08/31/23 08/31/23 11:36 Patient Tobacco Use Status Former Tobacco user 08/31/23 11:36 e-Cigarette/Vaping Use Never Used 08/31/23 11:36 PHQ-9: PHQ-9 Score PHQ-9: Total score 3 08/31/23 12:43 Depression Screening Interpretation: Negative (Controlled with citalopram, would like to be weaned off medication) Thrive Assessment: Date of Thrive Assessment Date Thrive assessed 08/31/23 08/31/23 12:43 Const General: comfortable and no acute distress Nutritional Appearance: obese Orientation/consciousness: patient oriented x3 HENMT Mouth: Normal oral and palatal mucosa present, oropharynx normal and moist mucous membranes Neuro General: patient oriented x3 Assessment and Plan Assessment & Plan (1) Anxiety and depression: Code(s): F41.9 - Anxiety disorder, unspecified; F32.A - Depression, unspecified Plan: Will start weaning off citalopram, prescription sent for 10 mg tablet, to take alternating dose of 20 mg and 10 mg tablet every other day for the 1st week and then decrease dose to 10 mg once a day thereafter, see me back in 4 weeks for follow-up (2) Essential hypertension: Code(s): I10 - Essential (primary) hypertension (3) Impaired fasting glucose: Code(s): R73.01 - Impaired fasting glucose Plan: Your fasting blood sugars in the past were elevated above 100 mg/dL. Impaired glucose metabolism increases your risk for developing diabetes mellitus type 2, as well as heart attack and stroke later on. Lifestyle changes at just weight loss, healthy eating habits, and regular exercise are important, and can prevent the progression to diabetes (4) Hypercholesterolemia: Code(s): E78.00 - Pure hypercholesterolemia, unspecified Plan: Fasting lipid panel ordered. Continue with low-cholesterol diet and regular exercise, at least 30 minutes 3 to 4 times a week. Advised patient to make healthy food choices, eat more fruits, vegetables, whole grains, wild caught fish and low-fat dairy. Limit amount of meat and fried or fatty food products, as well as processed foods and fast foods. Referred to our nurse navigator for dietary guidance (5) Obesity (BMI 30-39.9): Code(s): E66.9 - Obesity, unspecified Plan: Referred to nurse navigator for guidance with regards to weight loss, diet Orders: Orders Hemoglobin A1c 11/20/23 E66.9 - Obesity, unspecified, E78.00 - Pure hypercholesterolemia, unspecified, F32.A - Depression, unspecified, F41.9 - Anxiety disorder, unspecified, I10 - Essential (primary) hypertension, M85.80 - Other specified disorders of bone density and structure, unspecified site, R73.01 - Impaired fasting glucose Alanine Aminotransferase 11/20/23 E66.9 - Obesity, unspecified, E78.00 - Pure hypercholesterolemia, unspecified, F32.A - Depression, unspecified, F41.9 - Anxiety disorder, unspecified, I10 - Essential (primary) hypertension, M85.80 - Other specified disorders of bone density and structure, unspecified site, R73.01 - Impaired fasting glucose Basic Metabolic Panel Fasting 11/20/23 E66.9 - Obesity, unspecified, E78.00 - Pure hypercholesterolemia, unspecified, F32.A - Depression, unspecified, F41.9 - Anxiety disorder, unspecified, I10 - Essential (primary) hypertension, M85.80 - Other specified disorders of bone density and structure, unspecified site, R73.01 - Impaired fasting glucose Lipid Panel 11/20/23 E66.9 - Obesity, unspecified, E78.00 - Pure hypercholesterolemia, unspecified, F32.A - Depression, unspecified, F41.9 - Anxiety disorder, unspecified, I10 - Essential (primary) hypertension, M85.80 - Other specified disorders of bone density and structure, unspecified site, R73.01 - Impaired fasting glucose Aspartate Amino Transferase 11/20/23 E66.9 - Obesity, unspecified, E78.00 - Pure hypercholesterolemia, unspecified, F32.A - Depression, unspecified, F41.9 - Anxiety disorder, unspecified, I10 - Essential (primary) hypertension, M85.80 - Other specified disorders of bone density and structure, unspecified site, R73.01 - Impaired fasting glucose Vitamin D 25-OH Total 11/20/23 E66.9 - Obesity, unspecified, E78.00 - Pure hypercholesterolemia, unspecified, F32.A - Depression, unspecified, F41.9 - Anxiety disorder, unspecified, I10 - Essential (primary) hypertension, M85.80 - Other specified disorders of bone density and structure, unspecified site, R73.01 - Impaired fasting glucose Medications: New citalopram 10 mg PO DAILY 30 tabs 2RF Discontinued citalopram Discontinued Reason: Doctor's Order 20 mg PO DAILY 90 tabs 1RF Coding Level of Care Code Est Pt Level 4 (75793) Diagnoses Anxiety and depression F41.9; F32.A Essential hypertension I10 Impaired fasting glucose R73.01 Hypercholesterolemia E78.00 Obesity (BMI 30-39.9) E66.9 Additional Codes PARISH-7 Assessment Billing - PARISH-7 Assessment Tool: PARISH-7 Assessment 70255 ([id number])
== END 2023-08-31 12:24 | disposition home or self-care (01) ==
PROVIDERS: PCP Internal Medicine; Visit Provider Internal Medicine
DX: I10 Essential (primary) hypertension (principal); F41.9 Anxiety disorder, unspecified; F32.A Depression, unspecified; Z68.41 Body mass index [BMI] 40.0-44.9, adult; E66.9 Obesity, unspecified; R73.01 Impaired fasting glucose; E78.00 Pure hypercholesterolemia, unspecified
CPT/HCPCS: 99214

== ENCOUNTER 2023-11-20 09:21 | Outpatient (REF) | payer MEDICARE, SELFPAY ==
[2023-11-20 12:08] LABS: Estimated Average Glucose 148 mg/dL; Hemoglobin A1c % 6.8 % (<6.0)
[2023-11-20 12:41] LABS: Alanine Aminotransferase 22 U/L (0-31); Anion Gap 13 (12-20); Aspartate Amino Transferase 14 U/L (5-31); Blood Urea Nitrogen 18 mg/dL (9-16); Calcium 9.5 mg/dL (8.4-10.2); Carbon Dioxide 25 mmol/L (22-29); Chloride 107 mmol/L (96-108); Cholesterol 166 mg/dL (<200); Estimated Glomerular Filt Rate 56; Glucose Fasting 153 mg/dL (60-99); HDL Cholesterol 47 mg/dL (>40); LDL Cholesterol Calculated 92 mg/dL (<100); Potassium 4.6 mmol/L (3.3-5.1); Sodium 140 mmol/L (135-145); Triglycerides 135 mg/dL (<150)
[2023-11-20 12:47] LABS: Vitamin D 25-OH Total 42.9 ng/mL (>30)
== END 2023-11-20 09:22 | disposition home or self-care (01) ==
LOC: HO.HMGCLDS 09:21
PROVIDERS: PCP Internal Medicine; Visit Provider Internal Medicine
DX: I10 Essential (primary) hypertension (principal); F41.9 Anxiety disorder, unspecified; F32.A Depression, unspecified; R73.01 Impaired fasting glucose; E78.00 Pure hypercholesterolemia, unspecified; E66.9 Obesity, unspecified; M85.80 Other specified disorders of bone density and structure, unspecified site
CPT/HCPCS: 36415; 80048; 80061; 82306; 83036; 84450; 84460

== ENCOUNTER 2023-12-01 10:11 | Outpatient (AMB) | payer MEDICARE, SELFPAY ==
--- NOTE | 2023-12-01 10:07 | MHC.PC.OV ---
Intake Visit Reasons: Andriod [phone] 3 mo. f/u Allergies codeine Adverse Reaction (Intermediate, Verified 12/01/23 10:37) seizure percocet Adverse Reaction (Uncoded 12/01/23 10:37) vomiting Medication List - Last Reconciled 12/01/23 by Sharron Roque MD alpha lipoic acid 100 mg PO DAILY ascorbate calcium (vitamin C) 500 mg PO DAILY calcium citrate 630 mg PO DAILY cholecalciferol (vitamin D3) 25 mcg PO DAILY citalopram 20 mg PO DAILY echinacea 400 mg PO TID multivitamin 1 tab PO DAILY olmesartan 40 mg PO DAILY omega-3 fatty acids 1,000 mg PO DAILY pantoprazole 40 mg PO DAILY Tobacco use date assessed: 12/01/23 Fall risk assessment: No Falls in past year Last assessed Fall Risk: 12/01/23 Dental Screening Dental Screen Date: 08/31/23 Did you have a dental visit in the last 12 months?: Yes Did you have a dental problem in the last 6 months where you did not have access to dental care?: Yes Was dental information given to patient?: Patient has dentist HPI Andriod [phone] 3 mo. f/u HPI Details 78-year-old lady with hypertension, hyperlipidemia and prediabetes, here today for her follow-up. She.had recent fasting labs done with hemoglobin A1c elevated at 6.8% , but lipids, electrolytes, liver enzymes, and vitamin-D level are all within normal limits. She has been trying to follow recommended diet, but admits to not getting much exercise lately. She denies any urine incontinence, no urinary frequency or urgency, no increased thirst or increased appetite periods . She has been feeling well with no new complaints at present time. She is now back on her citalopram 20 mg daily. Tried weaning herself off medication but mood swings has come back now much improved ever since she started taking her medication again. [facility] Medical History (Updated 12/03/23 @ 05:48 by Sharron Roque MD) Dyslipidemia Type 2 diabetes mellitus without complication, without long-term current use of insulin Hearing impairment History of adenomatous polyp of colon Lumbar back pain with radiculopathy affecting left lower extremity Obesity (BMI 30-39.9) Hypercholesterolemia Paget's disease of the bone Osteopenia GERD (gastroesophageal reflux disease) Impaired fasting glucose Anxiety and depression Essential hypertension Surgical History History of partial hysterectomy History of appendectomy History of cholecystectomy H/O breast surgery History of lumbar discectomy Social History Housing: House Patient Tobacco Use Status: Former Tobacco user e-Cigarette/Vaping Use: Never Used service: No Current occupational status: retired Cognitive needs: No Hearing needs: No Vision needs: Yes Questionnaire Thrive Questionnaire Date Thrive assessed: 08/31/23 PARISH-7 AMB Questionnaire PARISH-7 Date PARISH - 7 assessed: 08/31/23 Source: Developed by Drs. Dinh Trejo, Nicole Bhagat, Bari Sheikh and colleagues, with an educational melvin from [employer]. Review of Systems Const Reports no additional complaints Eyes Details: has [facility] Reports no additional complaints Card Denies chest pain at rest, Denies chest pain with activity, Denies irregular heart rhythm and Denies lightheadedness Resp Reports no additional complaints GI Reports no additional complaints Denies hematuria, Denies difficulty voiding, Denies dysuria and Denies urinary hesitancy Musc Details: Recurrent pain stiffness in knees and lower back Skin/Breast Denies breast swelling, Denies breast pain, Denies breast mass and Denies rash Neuro Reports no additional complaints Psych Reports no additional complaints Endo Reports no additional complaints Severino/Lymph Reports no additional complaints Aller/Immun Reports no additional complaints Physical exam (Primary Care) Tobacco/Smoking Status: Tobacco use Status Tobacco use date assessed 12/01/23 12/01/23 10:11 Patient Tobacco Use Status Former Tobacco user 12/01/23 10:11 e-Cigarette/Vaping Use Never Used 12/01/23 10:11 Thrive Assessment: Date of Thrive Assessment Date Thrive assessed 08/31/23 12/01/23 10:11 Telehealth Telehealth Telehealth Platform: [facility] Location of provider rendering services: practice address Location of patient: address on file Patient Identification confirmed using: Name, : Yes Telehealth method: video Patient verbally consented to treatment: Yes Patient verbally consented to billing insurance company: Yes Patient informed of any privacy concerns related to visit: Yes Minutes spent on Phone/Video with Pt.: 15 Results Reviewed Results Reviewed: Name: Yahaira Herring Age/Sex: 78/F : 1945 Unit#: [id number] Attend Dr: Sharron Roque MD Re11/20/23 Status: DEP REF Location: [facility] Disch: SPEC : [id number] KATELYNN: 11/20/23 STATUS: COMP REQ : [id number] RECD: 11/20/23-[address]: Sharron Roque MD COMP: 11/20/23 ENTERED: 11/20/[address]: ORDERED: Met Prof Fast, AST, ALT, Lipid Panel, Vitamin D 25-OH Test Result Flag Reference Sodium 140 135-145 mmol/L Potassium 4.6 3.3-5.1 mmol/L CL 107 96-108 mmol/L CO2 25 22-29 mmol/L Gap 13 12-20 BUN 18 H 9-16 mg/dL Creat 0.96 0.5-1.4 mg/dL EGFR 56 NOTE: For -Turkmen individuals, multiply the result by 1.210. Chronic Kidney Disease: Estimated GFR < 60 mL/min/1.73m2 Severe Kidney Disease: Estimated GFR < 15 mL/min/1.73m2 FBS 153 H 60-99 mg/dL A fasting glucose of 126 mg/dl or greater on more than one occasion is considered diagnostic of diabetes. CA 9.5 8.4-10.2 mg/dL AST (GOT) 14 5-31 U/L ALT (GPT) 22 0-31 U/L Triglyceride 135 <150 mg/dL Desirable Triglyceride: less than 150 mg/dL Borderline High Triglyceride 150-199 mg/dL High Triglyceride: 200-499 mg/dL Very High Triglyceride: greater than or equal to 5OO mg/dL Cholesterol 166 <200 mg/dL Desirable Cholesterol: less than 200 mg/dL Borderline High Cholesterol: 200-239 mg/dL High Cholesterol: greater than 239 mg/dL LDL Calculated 92 <100 mg/dL Desirable LDL: less than 100 mg/dL Near Optimal/Above Optimal LDL: 110-129 mg/dL Borderline High LDL: 130-159 mg/dL High LDL: 160-189 mg/dL Very High LDL: greater than or equal to 190 mg/dL HDL 47 >40 mg/dL Desirable HDL: greater than 40 mg/dL Note: This HDL assay may give artificially low results in patients with liver disease. Vit D 25-OH Tot 42.9 >30 ng/mL Health Based Reference Values* < 20 ng/mL Deficient 20-30 ng/mL Insufficient > 30 ng/mL Sufficient Laboratory Tests 11/20/23 09:48 Estimat Average Glucose 148 Hemoglobin A1c % 6.8 H Assessment and Plan Assessment & Plan (1) Type 2 diabetes mellitus without complication, without long-term current use of insulin: Code(s): E11.9 - Type 2 diabetes mellitus without complications Plan: Recent lab results reviewed with patient, will start on metformin ER 500 mg per tablet to take 1 tablet at night with supper. Reinforced importance of following a diabetic diet, and get regular exercise. Referred for diabetes education, see her back for follow-up 3 months after fasting labs done (2) Essential hypertension: Code(s): I10 - Essential (primary) hypertension Plan: Currently on olmesartan 40 mg daily (3) Anxiety and depression: Code(s): F41.9 - Anxiety disorder, unspecified; F32.A - Depression, unspecified Plan: Doing better, now that she is back on citalopram 20 mg daily Medications: New metformin ER 500 mg PO QPM 90 tabs 1RF citalopram 20 mg PO DAILY 90 tabs 2RF Refilled olmesartan 40 mg PO DAILY 90 tabs 1RF Coding Level of Care Code Tele Est Pt Level 4 (13615) Complex EM visit Add On G2211 Diagnoses Type 2 diabetes mellitus without complication, without long-term current use of insulin E11.9 Essential hypertension I10 Anxiety and depression F41.9; F32.A
== END 2023-12-01 12:45 | disposition home or self-care (01) ==
LOC: HO.HMGC 10:11
PROVIDERS: PCP Internal Medicine; Visit Provider Internal Medicine
DX: E11.9 Type 2 diabetes mellitus without complications (principal); I10 Essential (primary) hypertension; F41.9 Anxiety disorder, unspecified; F32.A Depression, unspecified
CPT/HCPCS: 99214; G2211

== ENCOUNTER 2024-02-20 14:32 | Outpatient (AMB) | payer MEDICARE, SELFPAY ==
[2024-02-20 14:45] VITALS: BP 130/68; PULSE 105; TEMP 36.5; O2SAT 94; BMI 40.3
--- NOTE | 2024-02-20 14:45 | AM.OFFWIN_ITS ---
Intake Vital Signs 02/20/24 14:45 Height 5 ft Weight 206 lb 2 oz BMI 40.3 BP 130/68 Blood Pressure Location Lt brachial Position Sitting Pulse 105 H Pulse Source Pulse Oximeter Temp 97.7 F Temp Source Temporal Artery Scan Pulse Oximetry (%) 94 Oxygen Delivery Method Room Air Intake Visit Reasons: EP Rt leg pain Intake Note: Pt presents to the office today for c/o right leg pain that started about 2.5 weeks ago. Pt denies any injury to her leg. Pt has a history of lumbar spine surgery/procedures. Patient Tobacco Use Status: Former Tobacco user Allergies codeine Adverse Reaction (Intermediate, Verified 02/20/24 14:49) seizure percocet Adverse Reaction (Uncoded 02/20/24 14:49) vomiting HPI HPI Comments History of Present Illness Details 78 y/o male patient who presents to the walk in clinic with c/o right lower leg pain that started about 2.5 weeks ago. Pt denies any injury to her leg. Pt has a history of lumbar spine surgery/procedures. She has an upcoming appointment with Pain management in 2 weeks. She is also receiving Massage therapy twice a month at home. [facility] Medical History (Updated 12/15/23 @ 14:46 by Sharron Roque MD) Allergies Urticaria Dyslipidemia Type 2 diabetes mellitus without complication, without long-term current use of insulin Hearing impairment History of adenomatous polyp of colon Lumbar back pain with radiculopathy affecting left lower extremity Obesity (BMI 30-39.9) Hypercholesterolemia Paget's disease of the bone Osteopenia GERD (gastroesophageal reflux disease) Impaired fasting glucose Anxiety and depression Essential hypertension Surgical History History of partial hysterectomy History of appendectomy History of cholecystectomy H/O breast surgery History of lumbar discectomy Social History Housing: House Patient Tobacco Use Status: Former Tobacco user e-Cigarette/Vaping Use: Never Used service: No Current occupational status: retired Cognitive needs: No Hearing needs: No Vision needs: Yes Review of Systems Const All systems reviewed & are unremarkable except as noted in HPI and below Physical Exam Vital Signs: Last Vital Signs Temp 97.7 F 02/20/24 14:45 Pulse 105 H 02/20/24 14:45 BP 130/68 02/20/24 14:45 Pulse Ox 94 02/20/24 14:45 Oxygen Delivery Method Room Air 02/20/24 14:45 BMI result Body Mass Index 40.3 Const General: cooperative and no acute distress; No comfortable Nutritional Appearance: obese Orientation/consciousness: patient oriented x3 Back/Spine/Pelvis Back: back tenderness Thoracic/Lumbar Spine: thoraco-lumbar ROM limited, thoraco-lumbar spasm and lumbar spinal tenderness Neuro General: patient oriented x3, gait normal and moves all extremities Psych Speech and movement: Normal speech and movement present Assessment & Plan Assessment & Plan (1) Lumbar back pain with radiculopathy affecting left lower extremity: Code(s): M54.16 - Radiculopathy, lumbar region Plan: Continue with Massage therapy F/U with Pain management as scheduled. iceHot Acetaminophen for pain relief F/U with PCP. Coding Level of Care Code Est Pt Level 3 (10101) Diagnoses Lumbar back pain with radiculopathy affecting left lower extremity M54.16 Time Spent (min) 15
== END 2024-02-20 15:24 | disposition home or self-care (01) ==
PROVIDERS: PCP Internal Medicine; Visit Provider Nurse Practitioner Family
DX: M54.16 Radiculopathy, lumbar region (principal)

== ENCOUNTER → 2024-02-20 14:32 | Outpatient (BNVA) | payer MEDICARE, SELFPAY | PROVIDERS: PCP Internal Medicine | DX: M54.16 Radiculopathy, lumbar region (principal) | CPT/HCPCS: 99212 ==

== ENCOUNTER 2024-02-29 12:59 | Outpatient (AMB) | payer MEDICARE, SELFPAY ==
--- NOTE | 2024-02-29 13:06 | A.OFFVIS_ITS ---
Vital Signs 02/29/24 13:13 Height 5 ft Weight 202 lb 2 oz BMI 39.5 BP 146/68 H Blood Pressure Location Lt brachial Position Sitting Respiration 14 Pulse 102 H Pulse Source Pulse Oximeter Pulse Oximetry (%) 94 Oxygen Delivery Method Room Air Intake Visit Reasons: Lumbar Radiculopathy Intake Note: Patient comes in for initial visit was referred by [facility] primary care. Reports pain 12/29. Allergies codeine Adverse Reaction (Intermediate, Verified 02/29/24 13:17) seizure percocet Adverse Reaction (Uncoded 02/20/24 14:49) vomiting HPI Comments Details: Yahaira is very pleasant 78 years old female who presented in my office with complains on pain initiating in the right lower buttock with radiation to the back of the knee and to the top of the foot not to the sole. She reported that this pain started 3 weeks ago. She reported it started after she performed some cleaning stuff in her house. She actually does not know what caused her pain. She reports that bending forward and sitting aggravates her pain. She can not sleep normally can not do activities of daily living she can not take care of herself she can not function normally. She is retired individual. She needs walker for ambulation. The application of cold make her pain better. Walking aggravates her pain. In the past in 2020 she had a cage implanted in her spine. The patient before that had multiple epidural steroid injections and radiofrequency ablation of the facet joints. None of those helped her and she went for a surgery. She also had extensive course of physical therapy before and after surgery. She tried to take ibuprofen and Tylenol to help her pain. She is on exuberant doses of ibuprofen she takes 3 pills of 200 mg several times a day. Reports that ibuprofen does not help her pain. She is actually crying today out of pain in my office. Her past medical history significant for hypertension and diabetes she is also suffering from irritable bowel syndrome. She had lumbar surgery at L4-L5 and L3-L4 in 2020 she had hysterectomy history of appendicitis gallbladder surgery and removal of the breast cysts. She has smoked cigarettes long time ago she casual drinks alcohol she denies recreational drugs. [facility] Medical History (Updated 02/29/24 @ 13:47 by Brandon Marquis MD) Allergies Urticaria Dyslipidemia Type 2 diabetes mellitus without complication, without long-term current use of insulin Hearing impairment History of adenomatous polyp of colon Lumbar back pain with radiculopathy affecting left lower extremity Obesity (BMI 30-39.9) Hypercholesterolemia Paget's disease of the bone Osteopenia GERD (gastroesophageal reflux disease) Impaired fasting glucose Anxiety and depression Essential hypertension Surgical History History of partial hysterectomy History of appendectomy History of cholecystectomy H/O breast surgery History of lumbar discectomy Social History Housing: House Patient Tobacco Use Status: Former Tobacco user e-Cigarette/Vaping Use: Never Used service: No Current occupational status: retired Cognitive needs: No Hearing needs: No Vision needs: Yes Review of Systems Const Reports no additional complaints ENT Reports Normal hearing present Card Reports as per HPI Resp Reports no additional complaints GI Reports as per HPI Reports no additional complaints Musc Reports no additional complaints Neuro Reports no additional complaints, Reports Normal hearing present, Denies Abnormal speech present, Denies confusion and Denies Sensory deficit (Neuro) Psych Denies confusion Endo Reports as per HPI Physical Exam Vital Signs: Last Vital Signs Pulse 102 H 02/29/24 13:13 Resp 14 02/29/24 13:13 BP 146/68 H 02/29/24 13:13 Pulse Ox 94 02/29/24 13:13 Oxygen Delivery Method Room Air 02/29/24 13:13 BMI result Body Mass Index 39.5 Const General: no acute distress; No confusion Nutritional Appearance: obese morbidly obese Orientation/consciousness: patient oriented x3 and No confusion Neck Neck: Yes full ROM Chest Chest palpation & inspection: normal inspection of the chest Resp Effort & Inspection: normal respiratory effort, able to speak in complete sentences, normal respiratory pattern, no audible wheezes and no cough Cardio Jugular venous distension: no JVD GI Inspection: Yes normal to inspection Back/Spine/Pelvis Other: She is able to stand on bilateral tiptoes and bilateral heels without difficulty demonstrating normal strength of bilateral lower extremities. She reports that coughing and sneezing aggravates her pain Valsalva maneuver is positive for pain increase. SLR is negative bilaterally. Lateral rotation of the right hip does not aggravate and in fact alleviate her pain. Medial rotation of the hip does not aggravate her pain. Jeramy test is negative bilaterally. There is no tenderness on palpation in projection of bilateral sacroiliac joints. There is severe tenderness on palpation in the projection of the ischial bursa. Neuro General: patient oriented x3, gait normal and No confusion Cranial nerves: Yes CN's II-XII intact bilaterally, Yes Normal hearing present and Yes Ability to bilaterally elevate shoulders present Speech: No Abnormal speech present Gait exam (Neuro): Normal gait present Motor exam (neuro): 5/5 motor strength present throughout Sensory Exam: No Sensory deficit (Neuro) Extrem General: No pedal edema Psych Speech and movement: Normal speech and movement present Affect: normal affect Attitude: cooperative Thought process: Normal thought process present Thought content: Normal thought content present Insight: Good insight present (Psych) Judgement: Good judgement present (Psych) Assessment & Plan Assessment & Plan (1) Ischial bursitis of right side: Code(s): M70.71 - Other bursitis of hip, right hip Category: Medical Plan After examining this patient today I was left under impression that her pain is not related to her previous surgery or lower back. She complains on pain in projection of ischial bursitis the most. She also complains on pain in the back of her knee which could be a result of hamstring related pain. The radiation of the pain is on the top of the foot while sciatica would be radiating to the sole. With diagnosis of ischial bursitis I will send her to physical therapy. I also start her on steroid taper today. I will see this patient upon completion of physical therapy in 6 weeks. She is welcome to continue cold applications to the area of the ischial bursa. Orders: Orders PT Evaluation and Treatment Today M70.71 - Other bursitis of hip, right hip Medications: New methylprednisolone (Medrol (Juvenal)) Take 6 pills at 11:00 on day 1, 5 pills at 11:00 on day 2, 4 pills on day 3, 3 pills on day 4, 2 pills on day 5, and 1 pill on day 6. Do not take ibuprofen while you are taking steroid medication. Tylenol is okay 4 mg PO DAILY 6 days 21 ea 0RF Patient Instructions: I here by testify that I spent 45 minutes in conversation with this patient as well as planning her care and organizing this note. Coding Level of Care Code New Pt Level 4 (53400) Diagnoses Ischial bursitis of right side M70.71
[2024-02-29 13:13] VITALS: BP 146/68; PULSE 102; RESP 14; O2SAT 94; BMI 39.5
== END 2024-02-29 13:33 | disposition home or self-care (01) ==
PROVIDERS: PCP Internal Medicine; Referring Provider Internal Medicine; Visit Provider Anesthesiology
DX: M70.71 Other bursitis of hip, right hip (principal)
CPT/HCPCS: 99204

== ENCOUNTER → 2024-02-29 12:59 | Outpatient (BNVA) | payer MEDICARE, SELFPAY | PROVIDERS: PCP Internal Medicine; Referring Provider Internal Medicine; Visit Provider Anesthesiology | DX: M54.16 Radiculopathy, lumbar region (principal); M70.71 Other bursitis of hip, right hip | CPT/HCPCS: 99202 ==

== ENCOUNTER 2024-03-05 12:59 | Outpatient (AMB) | payer MEDICARE, SELFPAY ==
--- NOTE | 2024-03-05 13:14 | AM.OFFVISMDC ---
Intake Vital Signs 03/05/24 13:34 Height 5 ft Weight 200 lb BMI 39.1 BP 138/74 Blood Pressure Location Lt brachial Position Sitting Pulse 99 Pulse Source Pulse Oximeter Pulse Oximetry (%) 96 Oxygen Delivery Method Room Air Intake Visit Reasons: MARYANNE [id number] Intake Note: Pt is here today for her SWV: Last colonoscopy 02/02/23 Allergies codeine Adverse Reaction (Intermediate, Verified 03/05/24 13:15) seizure percocet Adverse Reaction (Uncoded 03/05/24 13:15) vomiting [facility] Medical History (Updated 02/29/24 @ 13:47 by Brandon Marquis MD) Allergies Urticaria Dyslipidemia Type 2 diabetes mellitus without complication, without long-term current use of insulin Hearing impairment History of adenomatous polyp of colon Lumbar back pain with radiculopathy affecting left lower extremity Obesity (BMI 30-39.9) Hypercholesterolemia Paget's disease of the bone Osteopenia GERD (gastroesophageal reflux disease) Impaired fasting glucose Anxiety and depression Essential hypertension Surgical History History of partial hysterectomy History of appendectomy History of cholecystectomy H/O breast surgery History of lumbar discectomy Social History Housing: House Patient Tobacco Use Status: Former Tobacco user e-Cigarette/Vaping Use: Never Used service: No Current occupational status: retired Cognitive needs: No Hearing needs: No Vision needs: Yes Female Reproductive History Menstrual Other: Questionnaire Medicare Wellness Checkup [age] What gender do you identify with?: female During the past 4 weeks, how much have you been bothered by emotional problems such as feeling anxious, depressed, irritable, sad or downhearted, and blue?: quite a bit During the past 4 weeks, has your physical & emotional health limited your social activities with family, friends, neighbors, or groups?: quite a bit During the past 4 weeks, how much bodily pain have you generally had?: severe pain During the past 4 weeks, was someone available to help you if you needed & wanted help?: yes, quite a bit During the past 4 weeks, what was the hardest physical activity you could do for at least 2 minutes?: moderate Can you get to places out of walking distance without help? (For eg., can you travel alone on buses, taxis or drive your car?): Yes Can you go shopping for groceries or clothes without someone's help?: Yes Can you prepare your own meals?: Yes Can you do your housework without help?: Yes Because of any health problems, do you need the help of another person with your personal care needs such as eating, bathing, dressing or getting around the house?: No Can you handle your own money without help?: Yes During the past 4 weeks, how would you rate your health in general?: fair During the past 4 weeks how have things been going for you?: pretty well Are you having difficulties driving your car?: no Do you always fasten your seat belt when you are in a car?: yes, usually During past 4 weeks, have you been bothered by the following: never: Falling or dizzy when standing up, Sexual problems?, Teeth or denture problems? and Problems using the telephone? and sometimes: Trouble eating well? and Tiredness or fatigue? Have you fallen 2 or more times in the past year?: No Are you afraid of falling?: No Are you a smoker?: no During the past 4 weeks, how many drinks of wine, beer, or other alcoholic beverages did you have?: no alcohol at all Do you exercise for about 20 minutes 3 or more times a week?: no, I usually do not exercise this much Have you been given information to help with the following?: no: Hazards in your house that might hurt you? and no: Keeping track of your medications? How confident are you that you can control & manage most of your health problems?: not very confident What is your race?: White PHQ-9 Over the last 2 weeks, how often have you been bothered by any of the following problems? 1. Little interest or pleasure in doing things: not at all 2. Feeling down, depressed, or hopeless: not at all 3. Trouble falling or staying asleep, or sleeping too much: several days 4. Feeling tired or having little energy: several days 5. Poor appetite or overeating: not at all 6. Feeling bad about yourself - or that you are a failure or have let yourself or your family down: not at all 7. Trouble concentrating on things, such as reading the newspaper or watching television: not at all 8. Moving or speaking so slowly that other people could have noticed. Or the opposite - being so fidgety or restless that you have been moving around a lot more than usual: not at all 9. Thoughts that you would be better off or of hurting yourself in some way: not at all Total score: 2 Depression Screening Interpretation: Negative Depression Screening Done: Yes 60740 - PHQ-9 Billing: Yes Source: Developed by Drs. Dinh Trejo, Nicole Bhagat, Bari Sheikh and colleagues, with an educational melvin from [employer]. Physical Exam Vital Signs: Last Vital Signs Pulse 99 03/05/24 13:34 BP 138/74 03/05/24 13:34 Pulse Ox 96 03/05/24 13:34 Oxygen Delivery Method Room Air 03/05/24 13:34 BMI result Body Mass Index 39.1 Assessment & Plan Assessment & Plan Medications: New nabumetone 750 mg PO BID PRN 30 tabs 0RF low back pain Quality Reporting (2019) Depression/Bipolar (159/160/161/177) PHQ-9: Total score: 2 Coding
[2024-03-05 13:34] VITALS: BP 138/74; PULSE 99; O2SAT 96; BMI 39.1
--- NOTE | 2024-03-05 14:24 | MHC.PC.OV ---
Vital Signs 03/05/24 13:34 Height 5 ft Weight 200 lb BMI 39.1 BP 138/74 Blood Pressure Location Lt brachial Position Sitting Pulse 99 Pulse Source Pulse Oximeter Pulse Oximetry (%) 96 Oxygen Delivery Method Room Air Intake Visit Reasons: low back pain Intake Note: Pt is here today c/o low back pain Allergies codeine Adverse Reaction (Intermediate, Verified 03/06/24 00:15) seizure percocet Adverse Reaction (Uncoded 03/06/24 00:15) vomiting Medication List - Last Reconciled 03/06/24 by Sharron Roque MD alpha lipoic acid 100 mg PO DAILY ascorbate calcium (vitamin C) 500 mg PO DAILY calcium citrate 630 mg PO DAILY cholecalciferol (vitamin D3) 25 mcg PO DAILY citalopram 20 mg PO DAILY echinacea 400 mg PO TID metformin ER 500 mg PO QPM methylcellulose (laxative) (Citrucel) 500 mg PO DAILY methylprednisolone (Medrol (Juvenal)) 4 mg PO DAILY 6 days multivitamin 1 tab PO DAILY nabumetone 750 mg PO BID PRN olmesartan 40 mg PO DAILY omega-3 fatty acids 1,000 mg PO DAILY Tobacco use date assessed: 03/05/24 Fall risk assessment: No Falls in past year Last assessed Fall Risk: 03/05/24 Dental Screening Dental Screen Date: 03/05/24 Did you have a dental visit in the last 12 months?: Yes Did you have a dental problem in the last 6 months where you did not have access to dental care?: No Was dental information given to patient?: Patient has dentist HPI low back pain HPI Details 78-year-old lady with past medical history of dyslipidemia, type 2 diabetes mellitus, anxiety depression, hypertension, GERD, obesity, and had lumbar surgery at L4-L5 and L3-L4 in 2020 presents today complaining of persistent pain in her right lower buttock radiating down back of her right lower leg up to top of right foot , which started about 3 weeks ago when she lifted a 50 lb bag of soil. She states pain is worse when she tries to bend forward or lies flat with her legs stretched out. Unable to find a comfortable position to sleep or sit due to the pain. She uses a walker for ambulation. The application of cold make her pain better. Walking aggravates her pain. She takes Tylenol during the day and at least 3 tablets of ibuprofen at night which she states affords partial pain relief but affect does not last for long time. She has been seen by Dr. Marquis 5 days ago and was told that she had a scale bursitis and was placed on a Medrol dose pack, and referred to physical therapy. States however that Medrol Dosepak has not afforded any relief of her pain, and she still has not heard from physical therapy about an upcoming appointment.. She denies any weakness, no numbness, no urinary or stool incontinence, but has to use a walker as weight-bearing on affected leg makes the pain worse. [facility] Medical History Allergies Urticaria Dyslipidemia Type 2 diabetes mellitus without complication, without long-term current use of insulin Hearing impairment History of adenomatous polyp of colon Lumbar back pain with radiculopathy affecting left lower extremity Obesity (BMI 30-39.9) Hypercholesterolemia Paget's disease of the bone Osteopenia GERD (gastroesophageal reflux disease) Impaired fasting glucose Anxiety and depression Essential hypertension Surgical History History of partial hysterectomy History of appendectomy History of cholecystectomy H/O breast surgery History of lumbar discectomy Social History Housing: House Patient Tobacco Use Status: Former Tobacco user e-Cigarette/Vaping Use: Never Used service: No Current occupational status: retired Cognitive needs: No Hearing needs: No Vision needs: Yes Questionnaire Thrive Questionnaire Date Thrive assessed: 08/31/23 PARISH-7 AMB Questionnaire PARISH-7 Date PARISH - 7 assessed: 08/31/23 Source: Developed by Drs. Dinh Trejo, Nicole Bhagat, Bari Sheikh and colleagues, with an educational melvin from [employer]. Review of Systems Const All systems reviewed & are unremarkable except as noted in HPI and below Physical exam (Primary Care) Vital Signs: Last Vital Signs Pulse 99 03/05/24 13:34 BP 138/74 03/05/24 13:34 Pulse Ox 96 03/05/24 13:34 Oxygen Delivery Method Room Air 03/05/24 13:34 BMI result Body Mass Index 39.1 Tobacco/Smoking Status: Tobacco use Status Tobacco use date assessed 03/05/24 03/05/24 14:25 Patient Tobacco Use Status Former Tobacco user 03/05/24 14:25 e-Cigarette/Vaping Use Never Used 03/05/24 14:25 Thrive Assessment: Date of Thrive Assessment Date Thrive assessed 08/31/23 03/05/24 14:25 Const Other: Alert oriented x3 in mild pain distress, appears uncomfortable pain Nutritional Appearance: obese Neck Neck: Yes full ROM, Yes no lymphadenopathy and Yes supple Resp Auscultation: clear to auscultation bilaterally Cardio Rate: regular rate Rhythm: regular rhythm Heart sounds: S1 normal heart sound present and S2 normal heart sound present GI Inspection: Yes obesity Palpation (GI): Soft to palpation, nontender, no guarding and no masses Back/Spine/Pelvis Pelvis: buttock tenderness ( outer aspect of lower buttock on left) and no buttock swelling Skin General skin exam: no rashes or lesions noted Neuro General: tone normal, moves all extremities, no focal motor deficits and normal sensation to monofilament Extrem General: Yes normal to inspection, Yes full ROM, Yes no joint enlargement, Yes no clubbing, cyanosis or edema, Yes no pedal edema and Yes no calf tenderness Coding Level of Care Code Est Pt Level 4 (07466) Diagnoses Ischial bursitis of right side M70.71 Assessment & Plan Assessment & Plan (1) Ischial bursitis of right side: Code(s): M70.71 - Other bursitis of hip, right hip Category: Medical Plan: Medrol Dosepak discontinued as patient states it has not helped at all with pain relief. Continue applying cold compresses to affected area, or may try Salonpas patch with ice applied to affected area every 8 hours as needed. Prescription was sent for nabumetone 750 mg per tablet to take 1 tablet twice a day as needed only for severe pain. She was advised to take it always with a meal. Advised to call physical therapy and find out if she already has an appointment scheduled. She also was advised to call Dr. Marquis if no improvement of symptoms with physical therapy or taking nabumetone. Medications: New nabumetone 750 mg PO BID PRN 30 tabs 0RF low back pain
== END 2024-03-05 16:03 | disposition home or self-care (01) ==
PROVIDERS: PCP Internal Medicine; Visit Provider Internal Medicine
DX: M70.71 Other bursitis of hip, right hip (principal)

== ENCOUNTER → 2024-03-05 12:59 | Outpatient (BNVA) | payer MEDICARE, SELFPAY | PROVIDERS: PCP Internal Medicine; Visit Provider Internal Medicine | DX: M70.71 Other bursitis of hip, right hip (principal) | CPT/HCPCS: 99212 ==

== ENCOUNTER 2024-03-11 09:52 | Outpatient (REF) | payer MEDICARE, SELFPAY ==
[2024-03-11 13:26] LABS: Estimated Average Glucose 137 mg/dL; Hemoglobin A1C 138.0039 umol/L; Hemoglobin A1c % 6.4 % (<6.0); Total Hemoglobin (HGBA1C) 2968.5875 umol/L
[2024-03-11 13:49] LABS: Alanine Aminotransferase 24 U/L (0-31); Anion Gap 11 (12-20); Aspartate Amino Transferase 22 U/L (5-31); Blood Urea Nitrogen 16 mg/dL (9-16); Calcium 8.9 mg/dL (8.4-10.2); Carbon Dioxide 25 mmol/L (22-29); Chloride 108 mmol/L (96-108); Cholesterol 168 mg/dL (<200); Estimated Glomerular Filt Rate 58; Glucose Fasting 145 mg/dL (60-99); HDL Cholesterol 43 mg/dL (>40); LDL Cholesterol Calculated 81 mg/dL (<100); Potassium 4.3 mmol/L (3.3-5.1); Sodium 140 mmol/L (135-145); Triglycerides 224 mg/dL (<150)
== END 2024-03-11 09:53 | disposition home or self-care (01) ==
LOC: HO.HMGCLDS 09:52
PROVIDERS: PCP Internal Medicine; Visit Provider Internal Medicine
DX: E11.9 Type 2 diabetes mellitus without complications (principal); E78.00 Pure hypercholesterolemia, unspecified
CPT/HCPCS: 36415; 80048; 80061; 83036; 84450; 84460

== ENCOUNTER 2024-03-13 13:36 | Outpatient (AMB) | payer MEDICARE, SELFPAY ==
--- NOTE | 2024-03-13 13:40 | MHC.OFFVIS ---
Vital Signs 03/13/24 13:46 Height 5 ft Weight 202 lb 13.204 oz BMI 39.6 BP 136/62 Blood Pressure Location Rt brachial Position Sitting Pulse 94 Pulse Source Pulse Oximeter Pulse Oximetry (%) 94 Oxygen Delivery Method Room Air Intake Visit Reasons: Follow up IBS, Gerd Intake Note: Relevant Flags or Indicators ? Requires Ethics Manager? Kofi Syed presents in office today for a scheduled 1 year FUV CC; Since last visit; labs ordered ? via PCP within the last week. Rx ordered ? no. Diagnostics/images ordered ? none. Relevant GI Sx as reported per pt? Pt reports having frequent BM. Pt also reports having slightly looser stools than normal. ? Hx of any recent surgeries; None Ethics Manager Required: No Allergies acetaminophen [From Percocet] Adverse Reaction (Intermediate, Verified 03/13/24 13:41) Nausea and Vomiting codeine Adverse Reaction (Intermediate, Verified 03/13/24 13:40) seizure oxycodone [From Percocet] Adverse Reaction (Intermediate, Verified 03/13/24 13:41) Nausea and Vomiting HPI HPI Follow up IBS, Gerd: Details: LAST VISIT: Tubular adenoma One tubular adenoma found in sigmoid colon. Clip placed. Patient will need to repeat colonoscopy in 3 years, sooner if clinically necessary. GERD (gastroesophageal reflux disease) Occasional acid reflux, long treatment with pantoprazole. Patient will try to avoid dietary triggers. She would like to stay on at. Discussed with patient the importance of avoiding dietary triggers and late night snacking. Staying upright for minimum 3 hours after meals discussed with patient IBS (irritable bowel syndrome) Occasional loose stools postprandially then constipation. Discussed with patient avoiding dietary triggers were low FODMAP diet discussed with patient. List of food of recommended as well as list of food to avoid given to patient. Postprandial diarrhea Occasional postprandial loose stools. However patient reports that she is constipated and does not feel like she empties her bowels completely. Patient tried Citrucel in the past and felt bounded for few days. Patient has loose stools postprandial room most likely related to food and the fact that she is actually constipated. Will send her script for MiraLax so she can empty her bowels completely. Patient will call if she feels like she is unable to empty her bowels completely. Patient was also encouraged to increase fluid intake and activity to promote better bowel motility. I will see her in 6 months, sooner on as needed basis. Patient is agreeable to this plan and verbalizes understanding of instructions. She was given the opportunity to ask questions and all questions answered. ? Thank you for allowing me to participate in her care Plan Medications New polyethylene glycol 3350 (Miralax) 17 grams PO DAILY 510 grams 2RF TODAY'S VISIT Patient is here today for follow-up. Patient reports that she has been doing well, however she feels like she has more frequent diarrhea. Patient was using MiraLax then tried fiber supplement and was not successful. Currently patient reports that she is dealing with her back pain and is going to see pain management for injections. Patient feels like it is her muscles causing pain going down her legs that feels like burning. Patient denies any urinary or fecal incontinence. Patient reports that her loose stools are provoked with sometimes after meals sometimes hours to after meals. Usually she will have cramping in her lower abdomen and then will have to use the bathroom. Patient denies melena, hematochezia. Denies dyspepsia, dysphagia or odynophagia [facility] Medical History (Updated 03/14/24 @ 05:00 by Sharron Roque MD) Allergies Urticaria Dyslipidemia Type 2 diabetes mellitus without complication, without long-term current use of insulin Hearing impairment History of adenomatous polyp of colon Lumbar back pain with radiculopathy affecting left lower extremity Obesity (BMI 30-39.9) Paget's disease of the bone Osteopenia GERD (gastroesophageal reflux disease) Impaired fasting glucose Anxiety and depression Essential hypertension Surgical History History of partial hysterectomy History of appendectomy History of cholecystectomy H/O breast surgery History of lumbar discectomy Social History Housing: House Patient Tobacco Use Status: Former Tobacco user e-Cigarette/Vaping Use: Never Used service: No Current occupational status: retired Cognitive needs: No Hearing needs: No Vision needs: Yes Review of Systems Const Denies weight gain and Denies weight loss ENT Reports no additional complaints, Denies dysphagia and Denies odynophagia Card Reports no additional complaints Resp Reports no additional complaints GI Reports abdominal pain (Cramping), Denies belching, Denies melena, Reports bloating, Denies change in bowel habits, Denies dysphagia, Denies excessive flatus, Denies dyspepsia, Denies heartburn, Denies diarrhea, Reports loose stools, Denies nausea, Denies odynophagia and Denies vomiting Musc Reports no additional complaints Neuro Reports no additional complaints Psych Reports no additional complaints Endo Reports no additional complaints Physical Exam Vital Signs: Last Vital Signs Pulse 94 03/13/24 13:46 BP 136/62 03/13/24 13:46 Pulse Ox 94 03/13/24 13:46 Oxygen Delivery Method Room Air 03/13/24 13:46 BMI result Body Mass Index 39.6 Const General: cooperative, healthy appearing and comfortable Nutritional Appearance: obese Orientation/consciousness: patient oriented x3 Limitations: no limitations Neck Neck: Yes normal visual inspection, Yes full ROM, Yes no lymphadenopathy, Yes trachea midline and Yes supple Thyroid: Thyroid normal Lymphatic: no lymphadenopathy noted Chest Chest palpation & inspection: normal inspection of the chest Resp Effort & Inspection: normal respiratory effort and able to speak in complete sentences Auscultation: clear to auscultation bilaterally Cardio Rhythm: regular rhythm GI Inspection: Yes normal to inspection, No distended and Yes obesity Palpation (GI): No hepatosplenomegaly present and No Rebound tenderness present Percussion: Yes normal to percussion Auscultation: normal bowel sounds General: Yes no CVA tenderness Back/Spine/Pelvis Back: no CVA tenderness Cervical Spine: cervical ROM normal and No cervical muscular tenderness Thoracic/Lumbar Spine: thoracic and lumbar spine normal to inspection Skin General skin exam: no rashes or lesions noted, elasticity normal and turgor normal Neuro General: patient oriented x3 Extrem General: Yes normal to inspection, Yes full ROM and Yes capillary refill normal Psych Appearance: grossly normal Mental Status: mental status grossly normal Assessment & Plan Assessment & Plan (1) Tubular adenoma: Code(s): D36.9 - Benign neoplasm, unspecified site Category: Medical (2) GERD (gastroesophageal reflux disease): Code(s): K21.9 - Gastro-esophageal reflux disease without esophagitis Category: Medical Qualifiers: Esophagitis presence: esophagitis presence not specified Qualified Code(s): K21.9 - Gastro-esophageal reflux disease without esophagitis (3) IBS (irritable bowel syndrome): Code(s): K58.9 - Irritable bowel syndrome, unspecified Qualifiers: Irritable bowel syndrome type: with both diarrhea and constipation Qualified Code(s): K58.2 - Mixed irritable bowel syndrome (4) Postprandial diarrhea: Code(s): K52.9 - Noninfective gastroenteritis and colitis, unspecified Plan Postprandial diarrhea most likely related to insufficient emptying. Patient will increase fiber to help her bulk stools. Avoid dietary triggers. Low FODMAP diet discussed with patient. List of food recommended as well as list of food to avoid given to patient. Script for cyclobenzaprine for patient's muscle cramping. Patient was encouraged to only take it at night time before bedtime. She will follow-up with us in 3 months, sooner on as needed basis. She is agreeable to this plan and verbalizes understanding of instructions. She was given the opportunity to ask questions and all questions answered. Thank you for allowing me to participate in her care Medications: New cyclobenzaprine 10 mg PO BEDTIME PRN 7 tabs 0RF muscle spasm Changed From methylcellulose (laxative) take it with full glass of water 500 mg PO DAILY 90 tabs 2RF K59.00 - Constipation, unspecified To methylcellulose (laxative) (Citrucel) take it with full glass of water 1,000 mg (2 x 500 mg) PO DAILY 180 tabs 2RF K59.00 - Constipation, unspecified Coding Level of Care Code Est Pt Level 3 (52561) Diagnoses Tubular adenoma D36.9 Gastroesophageal reflux disease, unspecified whether esophagitis present K21.9 Esophagitis presence: esophagitis presence not specified Irritable bowel syndrome with both constipation and diarrhea K58.2 Irritable bowel syndrome type: with both diarrhea and constipation Postprandial diarrhea K52.9 Time Spent (min) 30 Comment 20 minutes spent with patient and additional 10 minutes spent reviewing her records
[2024-03-13 13:46] VITALS: BP 136/62; PULSE 94; O2SAT 94; BMI 39.6
== END 2024-03-13 14:22 | disposition home or self-care (01) ==
PROVIDERS: PCP Internal Medicine; Visit Provider Nurse Practitioner Family
DX: K58.2 Mixed irritable bowel syndrome (principal); K21.9 Gastro-esophageal reflux disease without esophagitis; Z86.0100 Personal history of colon polyps, unspecified
CPT/HCPCS: 99213

== ENCOUNTER → 2024-03-13 13:36 | Outpatient (BNVA) | payer MEDICARE, SELFPAY | PROVIDERS: PCP Internal Medicine; Visit Provider Nurse Practitioner Family | DX: D36.9 Benign neoplasm, unspecified site (principal); K21.9 Gastro-esophageal reflux disease without esophagitis; K58.2 Mixed irritable bowel syndrome; K52.9 Noninfective gastroenteritis and colitis, unspecified | CPT/HCPCS: 99212 ==

== ENCOUNTER 2024-04-24 14:13 | Outpatient (AMB) | payer MEDICARE, SELFPAY ==
--- NOTE | 2024-04-24 14:20 | MHC.OFFVIS ---
Vital Signs 04/24/24 14:21 Height 5 ft Weight 202 lb BMI 39.4 BP 191/81 H Blood Pressure Location Lt brachial Position Sitting Respiration 16 Pulse 106 H Pulse Source Pulse Oximeter Pulse Oximetry (%) 96 Oxygen Delivery Method Room Air Intake Visit Reasons: 6 weeks FU Allergies codeine Adverse Reaction (Intermediate, Verified 04/24/24 14:23) seizure oxycodone [From Percocet] Adverse Reaction (Intermediate, Verified 04/24/24 14:23) Nausea and Vomiting Medication List - Last Reconciled 04/24/24 by Gabriela Xie LPN alpha lipoic acid 100 mg PO DAILY ascorbate calcium (vitamin C) 500 mg PO DAILY calcium citrate 630 mg PO DAILY cholecalciferol (vitamin D3) 25 mcg PO DAILY citalopram 20 mg PO DAILY cyclobenzaprine 10 mg PO BEDTIME PRN echinacea 400 mg PO TID famotidine 40 mg PO DAILY metformin ER 500 mg PO QPM methylcellulose (laxative) (Citrucel) 1,000 mg (2 x 500 mg) PO DAILY multivitamin 1 tab PO DAILY nabumetone 750 mg PO BID PRN olmesartan 40 mg PO DAILY omega-3 fatty acids 1,000 mg PO DAILY HPI Comments Details: Yahaira is back in my office today to discuss the documentation we received from [place] [facility] where the patient was under observation for many years. She was examined by MRI in 2020 and on the MRI there are evidence of postsurgical changes related to prior L4-S1 posterior decompression with L5-S1 discectomy and a left unilateral fusion at L5-S1. Unchanged grade 1 anterior listhesis of L4 on L5 and L5 on S1. Multilevel disc bulging and facet arthropathy. [id number] foraminal narrowing at L3-L4. At L4-5 there is moderate bilateral foraminal narrowing. L5-S1 moderate right and [id number] left foraminal narrowing. While under care of pain specialist in [place] she received mild procedure, diagnostic L3 L4 L5 medial branch block on the right, she received this injection twice, she also received right L5 and right S1 transforaminal epidural steroid injections, she received bilateral sacroiliac joint injections And she also received bilateral sacroiliac joint innervation radiofrequency ablation. The patient states that the radiofrequency ablation improved her pain moderately. The other procedures were more or less helpful. On physical exam today (see as below) attention was attracted to very prominent signs and symptoms of sacroiliitis on the right but not on the left. I offered the patient diagnostic right sacroiliac joint injection to schedule, this will be true diagnostic sacroiliac joint injection because in [place] she received diagnostic injections with steroids. Prior: very pleasant 78 years old female who presented in my office with complains on pain initiating in the right lower buttock with radiation to the back of the knee and to the top of the foot not to the sole. She reported that this pain started 3 weeks ago. She reported it started after she performed some cleaning stuff in her house. She actually does not know what caused her pain. She reports that bending forward and sitting aggravates her pain. She can not sleep normally can not do activities of daily living she can not take care of herself she can not function normally. She is retired individual. She needs walker for ambulation. The application of cold make her pain better. Walking aggravates her pain. In the past in 2020 she had a cage implanted in her spine. The patient before that had multiple epidural steroid injections and radiofrequency ablation of the facet joints. None of those helped her and she went for a surgery. She also had extensive course of physical therapy before and after surgery. She tried to take ibuprofen and Tylenol to help her pain. She is on exuberant doses of ibuprofen she takes 3 pills of 200 mg several times a day. Reports that ibuprofen does not help her pain. She is actually crying today out of pain in my office. Her past medical history significant for hypertension and diabetes she is also suffering from irritable bowel syndrome. She had lumbar surgery at L4-L5 and L3-L4 in 2020 she had hysterectomy history of appendicitis gallbladder surgery and removal of the breast cysts. She has smoked cigarettes long time ago she casual drinks alcohol she denies recreational drugs. [facility] Medical History (Updated 04/25/24 @ 08:30 by Brandon Marquis MD) Allergies Urticaria Dyslipidemia Type 2 diabetes mellitus without complication, without long-term current use of insulin Hearing impairment History of adenomatous polyp of colon Lumbar back pain with radiculopathy affecting left lower extremity Obesity (BMI 30-39.9) Paget's disease of the bone Osteopenia GERD (gastroesophageal reflux disease) Impaired fasting glucose Anxiety and depression Essential hypertension Surgical History History of partial hysterectomy History of appendectomy History of cholecystectomy H/O breast surgery History of lumbar discectomy Social History Housing: House Patient Tobacco Use Status: Former Tobacco user e-Cigarette/Vaping Use: Never Used service: No Current occupational status: retired Cognitive needs: No Hearing needs: No Vision needs: Yes Review of Systems Const All systems reviewed & are unremarkable except as noted in HPI and below ENT Reports Normal hearing present Neuro Reports Normal hearing present, Denies Abnormal speech present, Denies confusion and Denies Sensory deficit (Neuro) Psych Denies confusion Physical Exam Vital Signs: Last Vital Signs Pulse 106 H 04/24/24 14:21 Resp 16 04/24/24 14:21 BP 191/81 H 04/24/24 14:21 Pulse Ox 96 04/24/24 14:21 Oxygen Delivery Method Room Air 04/24/24 14:21 BMI result Body Mass Index 39.4 Const General: no acute distress; No confusion Nutritional Appearance: obese morbidly obese Orientation/consciousness: patient oriented x3 and No confusion Neck Neck: Yes full ROM Chest Chest palpation & inspection: normal inspection of the chest Resp Effort & Inspection: normal respiratory effort, able to speak in complete sentences, normal respiratory pattern, no audible wheezes and no cough Cardio Jugular venous distension: no JVD GI Inspection: Yes normal to inspection Back/Spine/Pelvis Other: She is able to stand on bilateral tiptoes and bilateral heels without difficulty demonstrating normal strength of bilateral lower extremities. She reports that coughing and sneezing aggravates her pain Valsalva maneuver is positive for pain increase. SLR is negative bilaterally. Lateral rotation of the right hip does not aggravate and in fact alleviate her pain. Medial rotation of the hip does not aggravate her pain. Jeramy test i is positive on the right, pelvic distraction but not pelvic compression test is positive on the right. Gaenslen test is positive on the right. Minor tenderness on palpation in the projection of the right sacroiliac joint today and no tenderness on palpation today in the projection of the right ischial bursa as it was observed last time. Neuro General: patient oriented x3, gait normal and No confusion Cranial nerves: Yes CN's II-XII intact bilaterally, Yes Normal hearing present and Yes Ability to bilaterally elevate shoulders present Speech: No Abnormal speech present Gait exam (Neuro): Normal gait present Motor exam (neuro): 5/5 motor strength present throughout Sensory Exam: No Sensory deficit (Neuro) Extrem General: No pedal edema Psych Speech and movement: Normal speech and movement present Affect: normal affect Attitude: cooperative Thought process: Normal thought process present Thought content: Normal thought content present Insight: Good insight present (Psych) Judgement: Good judgement present (Psych) Assessment & Plan Assessment & Plan (1) Sacroiliitis: Code(s): M46.1 - Sacroiliitis, not elsewhere classified Category: Medical (2) Chronic right sacroiliac joint pain: Code(s): M53.3 - Sacrococcygeal disorders, not elsewhere classified; G89.29 - Other chronic pain Category: Medical (3) Postlaminectomy syndrome of lumbar region: Code(s): M96.1 - Postlaminectomy syndrome, not elsewhere classified Category: Medical (4) Chronic pain syndrome: Code(s): G89.4 - Chronic pain syndrome Category: Medical Plan On physical exam today sacroiliitis seem to be prominent. I offered the patient diagnostic right sacroiliac joint injection. I will schedule this without sedation. I will see the patient immediately after the procedure and we will sort out the results of the injection and possibility of sacroiliac joint pain treatment if diagnostic injection will be positive. Patient Instructions: I here by testify that I spent 45 minutes in conversation with this patient as well as reading patient's diagnostic records as well as records of this patient's prior procedures as well as planning her care and organizing this note. Coding Level of Care Code Est Pt Level 5 (99401) Diagnoses Sacroiliitis M46.1 Chronic right sacroiliac joint pain M53.3; G89.29 Postlaminectomy syndrome of lumbar region M96.1 Chronic pain syndrome G89.4
[2024-04-24 14:21] VITALS: BP 191/81; PULSE 106; RESP 16; O2SAT 96; BMI 39.4
== END 2024-04-24 14:51 | disposition home or self-care (01) ==
PROVIDERS: PCP Internal Medicine; Visit Provider Anesthesiology
DX: M46.1 Sacroiliitis, not elsewhere classified (principal); M53.3 Sacrococcygeal disorders, not elsewhere classified; G89.29 Other chronic pain; M96.1 Postlaminectomy syndrome, not elsewhere classified; G89.4 Chronic pain syndrome
CPT/HCPCS: 99215

== ENCOUNTER → 2024-04-24 14:13 | Outpatient (BNVA) | payer MEDICARE, SELFPAY | PROVIDERS: PCP Internal Medicine; Visit Provider Anesthesiology | DX: M46.1 Sacroiliitis, not elsewhere classified (principal); M53.3 Sacrococcygeal disorders, not elsewhere classified; M96.1 Postlaminectomy syndrome, not elsewhere classified; G89.4 Chronic pain syndrome | CPT/HCPCS: 99212 ==

== ENCOUNTER 2024-05-08 13:39 | Outpatient (REF) | payer MEDICARE, SELFPAY ==
--- OUTSIDE RECORDS SUMMARY | 2024-05-08 13:42 | XMS_ITS | Patient Health Record ---
Author Organization [facility] Address [address] [place] [address] Care Team Providers Care Senior Manager Name Role Phone Jude MCCANN, Sharron Ceron Primary Care Provider Un available Anne Lin Unavailable [phone] Allergies Allergen (clinical drug ingredient) Drug/Non Drug Allergy documented on EMR Reaction Allergy Type Onset Date Status acetaminophen / oxycodone Percocet Unknown Drug Allergy Active codeine Codeine nausea Drug Allergy Active Reason For Referral No Information Medications Medication SIG (Take, Route, Frequency, Duration) Notes Start Date End Date Status Gabapentin Not-Takin g Losartan Potassium A ctive hydroCHLOROthiazide Active Citalopram & Diet Manage Prod Active Atenolol Active Problems Problem Type SNOMED Code ICD Code Onset Dates Problem Status W/U Status Risk Notes Problem Pain in limb (41877363) Pain in left toe(s) (M79.675) Active confirmed Plan Of Treatment Pending Test Test Name Order Date [id number] NAIL, 6 OR MORE 06/14/2012 [id number] NAIL, 1-5 02/25/2013 [id number] NAIL, 1-5 08/29/2012 [id number] NAIL, 1-5 11/28/2012 [id number] Plate 11/28/2012 [id number] Plate 02/25/2013 [id number] Plate 06/14/2012 [id number] Plate 08/29/2012 Next Appt Details Provider Name:Anne smart, 07/24/2024 02:00:00 PM, [address] [facility], [place], [address], Insurance Providers Payer Name Payer Address Payer Phone Subscriber Number Group Number Insured Name Patient Relationship to Insured Coverage Start Date Coverage End Date Medicare National Govt S[employer] [address] [place] [address] [id number] Nima Venango Self - patient is the insured 0 [employer] [address] [place] [address] [phone] [id number] Yahaira Herring Self - patient is the insured 0 Medical (General) History Medical History History ICD Code mumps measles high blood pressure chicken pox Pagets disease of bones arthritis Surgical History Surgery Date(Month/Year) nueroma left foot
== END 2024-05-08 13:40 | disposition home or self-care (01) ==
LOC: HO.HMGCLDS 13:39
PROVIDERS: PCP Internal Medicine; Visit Provider Otolaryngology
DX: L50.0 Allergic urticaria (principal)
CPT/HCPCS: 36415; 82785; 86003

== ENCOUNTER 2024-05-23 10:24 | Outpatient (REF) | payer MEDICARE, SELFPAY ==
--- OUTSIDE RECORDS SUMMARY | 2024-05-23 10:43 | XMS_ITS | Patient Health Record ---
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 Name Role Phone Jude MCCANN, Sharron Ceron Primary Care Provider Un available Anne Lin Unavailable [phone] Allergies Allergen (clinical drug ingredient) Drug/Non Drug [...] Status Risk Notes Problem Pain in limb (07458655) Pain in left toe(s) (M79.675) Active confirmed Plan Of Treatment Pending Test Test Name Order Date [id number] NAIL, 6 OR MORE 06/14/2012 [id number] NAIL, 1-5 02/25/2013 [id number] NAIL, 1-5 08/29/2012 [id number] NAIL, 1-5 11/28/2012 [id number] Plate 11/28/2012 [id number] Plate 02/25/2013 [id number] Plate 06/14/2012 [id number] Plate 08/29/2012 Next Appt Details Provider Name:Anne smart, 07/24/2024 02:00:00 PM, [address] [facility], [place], [address], Insurance Providers Payer Name Payer Address Payer Phone Subscriber Number Group Number Insured Name Patient Relationship to Insured Coverage Start Date Coverage End Date Medicare National Govt Svcs Inc [address] [place] [address] [id number] Nima Yahaira Self - patient is the insured 0 [employer] [address] [place] [address] [phone] [id number] Yahaira Herring Self - patient is the insured 0 Medical (General) History Medical History History ICD Code mumps measles high blood pressure chicken pox Pagets disease of bones arthritis Surgical History Surgery Date(Month/Year) nueroma left foot
[2024-05-23 13:14] LABS: Hematocrit 36.3 % (37.0-47.0); Hemoglobin 10.8 g/dl (12.0-16.0)
[2024-05-23 13:23] LABS: Estimated Average Glucose 146 mg/dL; Hemoglobin A1C 137.2437 umol/L; Hemoglobin A1c % 6.7 % (<6.0); Total Hemoglobin (HGBA1C) 2781.7377 umol/L
[2024-05-23 13:30] LABS: Alanine Aminotransferase 25 U/L (0-31); Alkaline Phosphatase 64 U/L (39-117); Anion Gap 11 (12-20); Aspartate Amino Transferase 22 U/L (5-31); Bilirubin Total 0.3 mg/dL (0.0-1.0); Blood Urea Nitrogen 17 mg/dL (9-16); Calcium 8.7 mg/dL (8.4-10.2); Carbon Dioxide 24 mmol/L (22-29); Chloride 110 mmol/L (96-108); Cholesterol 153 mg/dL (<200); Estimated Glomerular Filt Rate > 60; Glucose Fasting 142 mg/dL (60-99); HDL Cholesterol 48 mg/dL (>40); LDL Cholesterol Calculated 85 mg/dL (<100); Potassium 4.4 mmol/L (3.3-5.1); Sodium 141 mmol/L (135-145); Triglycerides 103 mg/dL (<150)
[2024-05-23 13:46] LABS: Creatinine Urine 198.04 mg/dL; Microalbum/Creatinine Ratio Ur 7.5 ug/mg cr (<30)
[2024-05-23 13:47] LABS: Vitamin D 25-OH Total 50.7 ng/mL (>30)
== END 2024-05-23 10:25 | disposition home or self-care (01) ==
LOC: HO.HMGCLDS 10:24
PROVIDERS: PCP Internal Medicine; Visit Provider Internal Medicine
DX: E78.5 Hyperlipidemia, unspecified (principal); E11.9 Type 2 diabetes mellitus without complications; I10 Essential (primary) hypertension; M85.80 Other specified disorders of bone density and structure, unspecified site; E66.9 Obesity, unspecified; K21.9 Gastro-esophageal reflux disease without esophagitis
CPT/HCPCS: 36415; 80053; 80061; 82043; 82306; 82570; 83036; 85014; 85018

== ENCOUNTER 2024-06-03 14:30 | Outpatient (AMB) | payer MEDICARE, SELFPAY ==
--- NOTE | 2024-06-03 14:34 | MHC.PC.OV ---
Vital Signs 06/03/24 14:36 Height 5 ft Weight 205 lb BMI 40.0 BP 110/64 Blood Pressure Location Lt brachial Position Sitting Pulse 70 Pulse Source Pulse Oximeter Pulse Oximetry (%) 96 Oxygen Delivery Method Room Air Intake Visit Reasons: MIYA from Dr. Roque- Javier, IBS, DM Intake Note: Patient is hre today for MIYA from Dr Roque. Donor Relations Associate Required: No Home Economist: Not Required per policy Accompanied by: Self / Same As Patient Allergies codeine Adverse Reaction (Intermediate, Verified 06/03/24 14:49) seizure oxycodone [From Percocet] Adverse Reaction (Intermediate, Verified 06/03/24 14:49) Nausea and Vomiting Medication List - Last Reconciled 06/03/24 by Lisa Card PA-C alpha lipoic acid 100 mg PO DAILY ascorbate calcium (vitamin C) 500 mg PO DAILY calcium citrate 630 mg PO DAILY cholecalciferol (vitamin D3) 25 mcg PO DAILY citalopram 20 mg PO DAILY echinacea 400 mg PO TID famotidine 40 mg PO DAILY metformin ER 500 mg PO QPM methylcellulose (laxative) (Citrucel) 1,000 mg (2 x 500 mg) PO DAILY multivitamin 1 tab PO DAILY olmesartan 40 mg PO DAILY omega-3 fatty acids 1,000 mg PO DAILY Tobacco use date assessed: 06/03/24 Fall risk assessment: No Falls in past year Last assessed Fall Risk: 06/03/24 Dental Screening Dental Screen Date: 06/03/24 Did you have a dental visit in the last 12 months?: Yes Did you have a dental problem in the last 6 months where you did not have access to dental care?: No Was dental information given to patient?: Patient has dentist HPI MIYA from Dr. Roque- Javier, IBS, DM HPI Details 78-year-old female with past medical history of dyslipidemia, type 2 diabetes mellitus, anxiety, depression, hypertension, GERD, obesity, and history of lumbar spinal surgery L4-L5 and L3-L4 in [address] Roque coming in for transfer of care.?In review of the notes, patient follows with pain management last seen 04/25/2024 for sacroiliitis scheduled for right sacroiliac joint injection.?Patient follows with [facility] last seen 03/23/2024 for postprandial diarrhea advised to increase fiber in start on low FODMAP diet, prescription sent for cyclobenzaprine for muscle cramping advised to follow up in 3 months. Patient tells us today she was seeing Dr. Marquis however she is going to have a 2nd opinion with with [facility] as she is unsure about the procedure. She states the metformin she was given makes her incredibly gassy and gives her abdominal pain and discomfort she was given famotidine for her symptoms but would like to discontinue both of these medications. She was on pantoprazole in the past which was beneficial for her acid reflux and would like to return to this medication and would like to try something else for diabetes. She feels her diarrhea has been improving with the most recent medication change with GI and has a follow up with her provider next week. She has no concerns today. [facility] Medical History (Updated 04/25/24 @ 08:30 by Brandon Marquis MD) Allergies Urticaria Dyslipidemia Type 2 diabetes mellitus without complication, without long-term current use of insulin Hearing impairment History of adenomatous polyp of colon Lumbar back pain with radiculopathy affecting left lower extremity Obesity (BMI 30-39.9) Paget's disease of the bone Osteopenia GERD (gastroesophageal reflux disease) Impaired fasting glucose Anxiety and depression Essential hypertension Surgical History History of partial hysterectomy History of appendectomy History of cholecystectomy H/O breast surgery History of lumbar discectomy Social History (Updated 06/03/24 @ 14:42 by JOSH Keys) Housing: House Alcohol intake: never Patient Tobacco Use Status: Former Tobacco user e-Cigarette/Vaping Use: Never Used Second Hand Smoke Exposure: Yes service: No Current occupational status: retired Cognitive needs: No Hearing needs: No Vision needs: Yes (Reading glasses) Questionnaire PHQ-9 Over the last 2 weeks, how often have you been bothered by any of the following problems? 1. Little interest or pleasure in doing things: not at all 2. Feeling down, depressed, or hopeless: not at all 3. Trouble falling or staying asleep, or sleeping too much: not at all 4. Feeling tired or having little energy: not at all 5. Poor appetite or overeating: not at all 6. Feeling bad about yourself - or that you are a failure or have let yourself or your family down: not at all 7. Trouble concentrating on things, such as reading the newspaper or watching television: not at all 8. Moving or speaking so slowly that other people could have noticed. Or the opposite - being so fidgety or restless that you have been moving around a lot more than usual: not at all 9. Thoughts that you would be better off or of hurting yourself in some way: not at all Total score: 0 Depression Screening Interpretation: Negative Depression Screening Done: Yes Source: Developed by Drs. Dinh Trejo, Nicole Bhagat, Bari Sheikh and colleagues, with an educational melvin from [employer]. Thrive Questionnaire Date Thrive assessed: 06/03/24 I am a: Patient What is your living situation today?: I have a steady place to live Within the past 12 months, did the food you bought not last and you didn't have the money to get more?: Never true Within the past 12 months, did you worry whether your food would run out before you got money to buy more?: Never true Do you have trouble paying for medicines?: No Do you have trouble getting transportation to medical appointments?: No Do you have trouble paying your heating and electricity bill?: No Do you have trouble taking care of your child, family member or friend?: No Do you have trouble with day-to-day activities such as bathing, preparing meals, shopping, managing finances, etc.?: No Are you currently unemployed and looking for a job?: No Are you interested in more education?: No Please select the resources that you would like help with: None Currently or been in a relationship where the following occur: No concerns reported THRIVE Score: 0 AUDIT C Alcohol Use Questionnaire (AUDIT-C) 1. How often do you have a drink containing alcohol?: Never 2. How many drinks containing alcohol do you have on a typical day when you are drinking?: 1 or 2 3. How often do you have six or more drinks on one occasion?: Never Total Score: 0 PARISH-7 AMB Questionnaire PARISH-7 Date PARISH - 7 assessed: 06/03/24 Feeling nervous, anxious, or on edge: 0 = Not at all Not being able to stop or control worryin = Not at all Worrying too much about different things: 0 = Not at all Trouble relaxin = Not at all Being so restless that it is hard to sit still: 0 = Not at all Becoming easily annoyed or irritable: 0 = Not at all Feeling afraid as if something awful might happen: 0 = Not at all Total PARISH-7 score (0-4 normal; 5-9 mild; 10-14 moderate; 15-21 severe): 0 Source: Developed by Drs. Dinh Trejo, Nicole Bhagat, Bari Sheikh and colleagues, with an educational melvin from [employer]. Review of Systems Const Denies body aches, Denies chills, Denies fever(s), Denies headache(s) and Denies poor appetite Eyes Reports no additional complaints ENT Denies dysphagia, Denies dizziness, Denies headache(s) and Denies odynophagia Card Denies chest pain, Denies syncope, Denies edema, Denies irregular heart rhythm, Denies lightheadedness and Denies dyspnea Resp Denies cough and Denies dyspnea GI Denies abdominal pain, Reports belching, Denies constipation, Denies dysphagia, Reports excessive flatus, Reports diarrhea, Denies nausea, Denies odynophagia and Denies vomiting Reports no additional complaints Musc Reports no additional complaints and Denies abnormal gait Skin/Breast Reports system reviewed and no additional complaints, except as documented Neuro Denies abnormal gait, Denies dizziness, Denies syncope and Denies headache(s) Psych Reports no additional complaints Physical exam (Primary Care) Vital Signs: Last Vital Signs Pulse 70 06/03/24 14:36 BP 110/64 06/03/24 14:36 Pulse Ox 96 06/03/24 14:36 Oxygen Delivery Method Room Air 06/03/24 14:36 BMI result Body Mass Index 40.0 Tobacco/Smoking Status: Tobacco use Status Tobacco use date assessed 06/03/24 06/03/24 14:38 Patient Tobacco Use Status Former Tobacco user 06/03/24 14:42 e-Cigarette/Vaping Use Never Used 06/03/24 14:42 PHQ-9: PHQ-9 Score PHQ-9: Total score 0 06/03/24 14:38 Depression Screening Interpretation: Negative Thrive Assessment: Date of Thrive Assessment Date Thrive assessed 06/03/24 06/03/24 14:38 Currently or been in a relationship where the following occur: No concerns reported Const General: cooperative, healthy appearing, comfortable and no acute distress Orientation/consciousness: patient oriented x3 HENMT Head: Yes normocephalic Ears: hearing grossly normal bilaterally General nose exam: Normal external nose present Eyes General: appearance normal, both eyes and all related structures Conjunctivae: conjunctivae normal Neck Neck: Yes full ROM and Yes no lymphadenopathy Resp Effort & Inspection: normal respiratory effort Auscultation: clear to auscultation bilaterally, no crackles, no rales, no rhonchi and no wheezes Cardio Rate: regular rate Rhythm: regular rhythm Skin General skin exam: no rashes or lesions noted Neuro General: patient oriented x3 Gait exam (Neuro): Normal gait present Extrem General: Yes normal to inspection, Yes full ROM and No edema Psych Affect: normal affect Attitude: cooperative Insight: Good insight present (Psych) Judgement: Good judgement present (Psych) Coding Level of Care Code Est Pt Level 4 (65596) Diagnoses Chronic pain syndrome G89.4 Chronic right sacroiliac joint pain M53.3; G89.29 Dyslipidemia E78.5 Type 2 diabetes mellitus without complication, without long-term current use of insulin E11.9 Essential hypertension I10 Anxiety and depression F41.9; F32.A Gastroesophageal reflux disease, unspecified whether esophagitis present K21.9 Esophagitis presence: esophagitis presence not specified Osteopenia M85.80 Obesity (BMI 30-39.9) E66.9 Assessment & Plan Assessment & Plan (1) Chronic pain syndrome: Code(s): G89.4 - Chronic pain syndrome Category: Medical Plan: Currently following with pain management for chronic pain. Was given nabumetone by last PCP. She is seeking a 2nd pain management opinion and has an appointment with [facility] pain management coming up. (2) Chronic right sacroiliac joint pain: Code(s): M53.3 - Sacrococcygeal disorders, not elsewhere classified; G89.29 - Other chronic pain Category: Medical Plan: Following with pain management is scheduled to have SI joint injection in June however she is going for a 2nd opinion and we will make her decision at that time. (3) Dyslipidemia: Code(s): E78.5 - Hyperlipidemia, unspecified Category: Medical Plan: Avoid foods that are high in cholesterol such as red meat, fried foods, eggs and baked goods. Triglyceride goal of less than 150 and LDL goal of less than 100. Continue on not currently on medical management (4) Type 2 diabetes mellitus without complication, without long-term current use of insulin: Code(s): E11.9 - Type 2 diabetes mellitus without complications Category: Medical Plan: Decrease the amount of carbohydrates such as pasta, bread, rice, and potatoes and limit the amount of sweets. Although fruits are generally healthy they should be eaten in moderation as they are still high in sugar. Hemoglobin A1c goal of less than 7%. Currently on metformin daily which she states is causing side effects. We will discontinue metformin at this time and start on Jardiance. Advised patient to reach out if this medication is not covered or she has issues with this medication. Follow up in 3 months (5) Essential hypertension: Code(s): I10 - Essential (primary) hypertension Category: Medical Plan: Continue on current blood pressure medication. Avoid salt intake and encourage healthy diet and regular exercise. On olmesartan (6) Anxiety and depression: Code(s): F41.9 - Anxiety disorder, unspecified; F32.A - Depression, unspecified Category: Medical Plan: Patient taking citalopram 20 mg daily for anxiety and depression. Feels her symptoms are well managed. (7) GERD (gastroesophageal reflux disease): Code(s): K21.9 - Gastro-esophageal reflux disease without esophagitis Category: Medical Qualifiers: Esophagitis presence: esophagitis presence not specified Qualified Code(s): K21.9 - Gastro-esophageal reflux disease without esophagitis Plan: Avoid trigger foods such as citrus, tomato products, soda, caffeine, spicy foods and other foods that may be irritating to your stomach. Avoid laying flat 3-4 hours after eating and elevate the head of the bed 30 degrees to prevent acid from moving into the esophagus. Patient would like to discontinue famotidine 40 and returned to her previous medication pantoprazole. Did discuss with patient this medication may interrupt the absorption of vitamin D she understands. Pantoprazole sent to pharmacy (8) Osteopenia: Code(s): M85.80 - Other specified disorders of bone density and structure, unspecified site Category: Medical Plan: On calcium and vitamin-D supplementation. (9) Obesity (BMI 30-39.9): Code(s): E66.9 - Obesity, unspecified Category: Medical Plan: Healthy diet and regular exercise is encouraged. Plan This note was constructed using voice recognition software. While every effort has been made to ensure accuracy and metal reed tuner, still areas may have been included sometimes these areas may affect the content or meeting of the given symptoms. Total time spent caring for the patient today was twenty minutes. This includes time spent before the visit reviewing the chart, time spent during the visit, and time spent after the visit and documentation. Medications: New pantoprazole 20 mg PO DAILY 90 tabs 2RF empagliflozin (Jardiance) 10 mg PO DAILY 30 tabs 1RF Discontinued metformin ER Discontinued Reason: Patient no longer taking 500 mg PO QPM 90 tabs 1RF famotidine Take an hour before eating Discontinued Reason: Patient no longer taking 40 mg PO DAILY 30 tabs 2RF
[2024-06-03 14:36] VITALS: BP 110/64; PULSE 70; O2SAT 96; BMI 40.0
--- OUTSIDE RECORDS SUMMARY | 2024-06-03 18:31 | XMS_ITS | Patient Health Record ---
[facility] Organization [facility] Address [address] [place] [address] Care Team Providers Care Rail Transportation Tabeler Name Role Phone Jude MCCANN, Sharron Ceron Primary Care Provider Un available Anne Lin Unavailable [phone] Allergies Allergen (clinical drug ingredient) Drug/Non Drug [...] Status Risk Notes Problem Pain in limb (50206036) Pain in left toe(s) (M79.675) Active confirmed Plan Of Treatment Pending Test Test Name Order Date [id number] NAIL, 6 OR MORE 06/14/2012 [id number] NAIL, 1-5 02/25/2013 [id number] NAIL, 1-5 08/29/2012 [id number] NAIL, 1-5 11/28/2012 [id number] Plate 11/28/2012 [id number] Plate 02/25/2013 [id number] Plate 06/14/2012 [id number] Plate 08/29/2012 Next Appt Details Provider Name:Anne smart, 07/24/2024 02:00:00 PM, [address] [facility], [place], [address], Insurance Providers Payer Name Payer Address Payer Phone Subscriber Number Group Number Insured Name Patient Relationship to Insured Coverage Start Date Coverage End Date Medicare National Govt S[employer] [address] [place] [address] [id number] Nima Stamford Self - patient is the insured 0 [employer] Blue [employer] [address] [place] [address] [phone] [id number] Yahaira Herring Self - patient is the insured 0 Medical (General) History Medical History History ICD Code mumps measles high blood pressure chicken pox Pagets disease of bones arthritis Surgical History Surgery Date(Month/Year) nueroma left foot
== END 2024-06-03 15:13 | disposition home or self-care (01) ==
PROVIDERS: PCP Internal Medicine
DX: G89.4 Chronic pain syndrome (principal); E11.69 Type 2 diabetes mellitus with other specified complication; Z68.41 Body mass index [BMI] 40.0-44.9, adult; E66.9 Obesity, unspecified; M53.3 Sacrococcygeal disorders, not elsewhere classified; G89.29 Other chronic pain; E78.5 Hyperlipidemia, unspecified; I10 Essential (primary) hypertension; F41.9 Anxiety disorder, unspecified; F32.A Depression, unspecified; K21.9 Gastro-esophageal reflux disease without esophagitis; M85.80 Other specified disorders of bone density and structure, unspecified site

== ENCOUNTER → 2024-06-03 14:30 | Outpatient (BNVA) | payer MEDICARE, SELFPAY | PROVIDERS: PCP Internal Medicine | DX: E78.5 Hyperlipidemia, unspecified (principal); F41.9 Anxiety disorder, unspecified; F32.A Depression, unspecified; I10 Essential (primary) hypertension; K21.9 Gastro-esophageal reflux disease without esophagitis; E11.9 Type 2 diabetes mellitus without complications; E66.9 Obesity, unspecified; G89.4 Chronic pain syndrome; M53.3 Sacrococcygeal disorders, not elsewhere classified; M85.80 Other specified disorders of bone density and structure, unspecified site; Z68.41 Body mass index [BMI] 40.0-44.9, adult | CPT/HCPCS: 96127; 99212 ==

== ENCOUNTER 2024-07-26 09:56 | Outpatient (REF) | payer MEDICARE, SELFPAY ==
--- NOTE | ~2024-07-26 | XR_ITS ---
EXAMINATION: XR LUMBOSACRAL SPINE CLINICAL INFORMATION: M48.061 - Spinal stenosis, lumbar region without neurogenic claudication COMPARISON: None available. TECHNIQUE: Two views of the lumbosacral spine. FINDINGS: There has been prior fusion of L5-S1 on the left with unilateral transpedicular screws and solitary posterior connecting rods. There is an associated disc prosthesis present in the disc space, with posterior laminectomy. There does appear to be lucency surrounding the inferior left transpedicular screw at S1. Cannot exclude loosening. Hardware is otherwise intact and well seated. No scoliosis. Normal to mildly straightened lordosis. There is a 5 mm anterolisthesis of L4 on L5. No additional subluxation. Moderate multilevel disc degeneration most significant L4-5. Disc vacuum phenomenon L2-L5. Normal facet alignment. Right greater than left facet degeneration spanning L3-S1. There are moderate degenerative changes in the right greater than left SI joints. There are vascular calcifications in the soft tissues. XR/XR lumbar spine 4V min IMPRESSION: 1. Findings suggesting loosening of the left inferior S1 transpedicular screw. Hardware is otherwise intact and seated. 2. There is a 5 mm anterolisthesis of L4-L5, degenerative in appearance. 3. Moderate degenerative spondylosis of the lumbar spine most significant at L3-S1. Electronically signed by: Avery Byrnes MD 07/29/2024 02:35 PM EDT
--- OUTSIDE RECORDS SUMMARY | 2024-07-26 12:03 | XMS_ITS | Patient Health Record ---
Author Organization [facility] Physician Yoseph es Billing Info Address [address] [place] [address] [place] [address] Support Name Relationship Address Phone Tricia Real Emergency Contact [address] [place] [address] Yahaira Herring Guarantor Unknown Allergies Allergen (clinical drug ingredient) Drug/Non Drug Allergy documented on EMR Reaction Allergy Type Onset Date Status acetaminophen / oxycodone Percocet Unknown Drug Allergy Active codeine Codeine Unknown Drug Allergy Active Reason For Referral No Information Medications Medication SIG (Take, Route, Frequency, Duration) Notes Start Date End Date Status Shingrix 50 MCG/0.5ML Intramuscular for 1 Unknown Calcium Citrate 250 MG 1 tablet Orally O nce a day for 30 day(s) Unknown Vitamin D3 25 MCG (1000 UT) 1 tablet Orally Once a day for 30 day(s) Unknown Multivitamin - 1 tablet Orally Once a day for 30 day(s) Unknown Pantoprazole Sodium 40 MG 1 tablet Orall y Once a day for 30 day(s) Unknown Ascorbic Acid 500 MG 1 tablet Orally Onc e a day for 30 day(s) Unknown Olmesartan Medoxomil 40 MG Oral for 90 Unknown Neurontin 300 MG 1 capsule Orally PO BID for 30 days 01/12/2021 Unknown Citalopram Hydrobromide 20 MG Oral for 90 Unknown Bone Growth Stimulator ---- as directed 10/07/2020 Unknown Famotidine 20 MG Oral for 90 U nknown Pycnogenol 25 MG as directed Orally Unknown Social History Tobacco Use: Social History Observation Description Date Details (start date - stop date) Former Smoker NA - NA Tobacco Status: Question Answer Notes Patient is a former smoker Problems Problem Type SNOMED Code ICD Code Onset Dates Problem Status W/U Status Risk Notes Problem [id number] Spondylolisthesi s, lumbar region (M43.16) Active confirmed Problem 076098445 Radiculopathy, lumbar region (M54.16) Active confirmed Problem 17936554 Spinal stenosis, 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) Active confirmed Problem 167978867 Lumbar radiculopathy (M54.16) Active confirmed Problem 247604887 Lumbar spondylos is (M47.816) Active confirmed Problem 393650012 Lumbar radiculopathy, chronic (M54.16) Active confirmed Problem 080555861 Spondylolisthesi s, unspecified spinal region (M43.10) Active confirmed Problem 50238180 Hypertension, unspecified type (I10) Active confirmed Problem 124715074 Gastroesophageal reflux disease, unspecified whether esophagitis present (K21.9) Active confirmed Plan Of Treatment Future Test Test Name Order Date MRI-LUMBAR SPINE; W/O CONTRAST MATL (721 48) 08/18/2020 XRAY- SPINE LUMBAR AP AND LAT/SPOT (7210 0)([facility]) 11/12/2020 CT- LUMBAR SPINE W/O CONTRAST (85304)([facility]) 01/12/2021 XRAY- SPINE LUMBAR AP AND LAT/SPOT (7210 0)([facility]) 03/16/2021 CT- [facility] W/O CONTRAST (05965[facility] 07/13/2021 Insurance Providers Payer Name Payer Address Payer Phone Subscriber Number Group Number Insured Name Patient Relationship to Insured Coverage Start Date Coverage End Date [place] PART B [address] [facility] [place], [place] [id number] Yahaira Herring Self - patient is the insured [facility] PPO [address] [place], [place] [id number] Yahaira Herring Self - patient is the insured Medical (General) History Medical History History ICD Code Lumbar radiculopathy Hypertension, unspecified type I10 Gastroesophageal reflux disease, unspeci fied whether esophagitis present K21.9 Spondylolisthesis, unspecified spinal re gion M43.10 Surgical History Surgery Date(Month/Year) hysterectomy gall bladder surgery appendectomy breast surgery Hospitalization History Reason Date(Month/Year) See Above
--- OUTSIDE RECORDS SUMMARY | 2024-07-26 12:03 | XMS_ITS | Clinical Summary ---
Author Organization [email or web address] Address [address] [facility] [address] [place] [address] Care Team Providers Care Circus Trainer Name Role Phone Unavailable Primary Care Provider [...] patient's age to complete this topic Insurance [facility] MEDEX CARE MEDICARE
== END 2024-07-26 09:57 | disposition home or self-care (01) ==
LOC: HO.HOSX 09:56
PROVIDERS: Visit Provider Neurological Surgery
DX: M48.061 Spinal stenosis, lumbar region without neurogenic claudication (principal); M51.369 Other intervertebral disc degeneration, lumbar region without mention of lumbar back pain or lower extremity pain; M43.16 Spondylolisthesis, lumbar region
CPT/HCPCS: 72110; 99202

== ENCOUNTER 2024-07-26 09:56 | Outpatient (AMB) | payer MEDICARE, SELFPAY ==
--- NOTE | 2024-07-26 10:01 | A.SPINEOV_ITS ---
Vital Signs 07/26/24 10:09 Height 5 ft 1 in Weight 200 lb BMI 37.8 Intake Visit Reasons: LBP Intake Note: Ms. Herring is here today c/o Low back pain that radiate to both legs. Banana Loader Required: No Allergies codeine Adverse Reaction (Intermediate, Verified 07/26/24 10:10) seizure oxycodone [From Percocet] Adverse Reaction (Intermediate, Verified 07/26/24 10:10) Nausea and Vomiting Physical Exam Vital Signs: BMI result Body Mass Index 37.8 Assessment & Plan Assessment & Plan (1) Spinal stenosis, lumbar region, without neurogenic claudication: Code(s): M48.061 - Spinal stenosis, lumbar region without neurogenic claudication Category: Medical Plan: Dear dear colleague Thank you for referring Yahaira Herring to the office today with a chief complaint of back pain, bilateral leg pain, weakness. HPI: This 78-year-old female with a previous L5-S1 lumbar fusion done in [place] in 2021. Last January she was gardening during which she developed severe sciatica down her right leg. The symptoms progressed to also involving the left leg. More importantly, she developed a drop foot on the right side and bilateral proximal leg weakness in addition to a complete numbness of her right foot. She has to ambulate with a cane and walk in a flexed position to get some relief. She can not walk or stand for any amount of time. Sitting down relieves some of the pain symptoms. The pain radiates down the front of her leg all the way down to her feet. She tried physical therapy which made her symptoms worse. Three weeks ago she had an epidural steroid injection L4-5 without effect. She is currently taking Tylenol and anti-inflammatory drugs which are not helping. PMH: Osteopenia, cholecystectomy, appendectomy, hysterectomy, status post L5-S1 lumbar decompression and fusion Medications: Citalopramolmesartan, citraveel Allergies: Percocet and codeine Social history: She lives alone. She is a nonsmoker Physical Exam: Pleasant female in obvious agony. Motor testing reviews a grade 3/5 footdrop on the right side and a grade 2/5 weakness of the bilateral iliopsoas muscles. There is hypoesthesia over the top of the right foot. Reflexes are symmetrically intact. She ambulates in a flexed position with a cane. Radiological Studies: MRI done at [facility] on 06/26/2024 shows status post L5-S1 decompression instrumented fusion. More importantly, there was [id number] L4-5 spinal stenosis with severe lateral recess stenosis, severe right L4 foraminal stenosis and moderate left L4 foraminal stenosis caused by combination of degenerative changes and disc material. A standing lumbar x-ray shows a grade 2 L4-5 spondylolisthesis Impression/Plan: This patient is suffering from adjacent degenerative disc disease with spondylolisthesis and severe central and foraminal stenosis L4-5 that is causing not only severe pain but also neurological deficits in the form of a right footdrop and bilateral proximal leg weakness with numbness. I offered her an oblique lumbar interbody fusion L4-5 to restore the sagittal alignment and indirectly decompress her nervous structures. We will also remove the L5-S1 posterior instrumentation and reinserted instrumentation at L4 and L5. I discussed the procedure, possible complications and expected postoperative outcome and she wants to proceed. She is scheduled for 08/13/2024. She will obtain a preoperative clearance from her primary care physician. Thank you for allowing me to participate in your patients care. total time spent was 50 minutes in counseling ,coordination of plan, personal review of imaging, surgical decision making and subsequent plan Sd Barr MD, PhD Spine Fellowship Trained Neurosurgeon Director, [facility] [place] [facility] (2) Lumbar adjacent segment disease with spondylolisthesis: Code(s): M51.369 - Other intervertebral disc degeneration, lumbar region without mention of lumbar back pain or lower extremity pain; M43.16 - Spondylolisthesis, lumbar region Category: Medical Plan: w Orders: Orders XR lumbar spine 4V min Today M43.16 - Spondylolisthesis, lumbar region, M48.061 - Spinal stenosis, lumbar region without neurogenic claudication, M51.369 - Other intervertebral disc degeneration, lumbar region without mention of lumbar back pain or lower extremity pain Coding Level of Care Code New Pt Level 4 (98942) Diagnoses Spinal stenosis, lumbar region, without neurogenic claudication M48.061 Lumbar adjacent segment disease with spondylolisthesis M51.369; M43.16
[2024-07-26 10:09] VITALS: BMI 37.8
--- OUTSIDE RECORDS SUMMARY | 2024-07-26 11:03 | XMS_ITS | Data Portability ---
Author Organization [place] [facility] ANICETO Middleton, Main Office Address [address] [place] [address] [place] [id number] Care Team Providers Care Director Distribution Name Role Phone ATIYA LIM Primary Care Provider JALEEL ORELLANA Orthopedist ALBERTA JOYA Pain Management ARNIE BUSTAMANTE OTHER Assessment No assessment recorded. Plan of Treatment Reminders Order Date Submit Date Provider Last Modified By Organization Details Last Modified Time Details Appointments None recorded. Lab CMP, serum or plasma 2021 [facility] [place] [facility] ([facility]), [address], [place], [address], 09:24:20 HbA1c (hemoglob in A1c), blood 2021 [facility] ([facility]), [address], [place], [address], 09:24:23 iron + total iron-bind ing capacity (TIBC), serum 2021 [facility] ([facility]), [address], [place], [address], 09:24:21 ferritin, serum or plasma 2021 [facility] ([facility]), [address], [place], [address], 09:24:22 CBC w/ auto diff 2021 [facility]), [address], [place], [address], 09:24:19 vitamin D, 25-hydrox y + 1,25-dihy droxy, serum 2021 [facility] [address] [place], [address], 14:36:53 lipid panel, serum 2021 [facility] ([place] [address] [place], [address], 14:36:53 CMP, serum or plasma 2021 [facility] ([place] [address] [place], [address], 14:36:52 CBC w/ auto diff 2021 [facility] ([place] [address] [place], [address], 14:36:52 TSH + free T4, serum 2021 [facility] [address] [place], [address], 14:36:51 Referral None recorded. Procedures None recorded. Surgeries None recorded. Imaging DEXA, axial skeleton + vertebral fracture assessmen t 2021 [facility] ([facility]), [address], [place], [address], 18:24:36 NM, myocardia l perfusion scan, w/ stress - Please do Mariluz Scan only, NO TREADMILL 2020 [email or web address] [facility] ([facility]), [address], [place], [address], 12:04:59 Medication Orders olmesarta n 40 mg tablet 2021 [email or web address], [place], [address], 13:34:24 citalopra m 20 mg tablet 2021 [facility], [facility], [place], [address], 13:12:11 meclizine 25 mg tablet 2021 [facility], [facility], [place], [address], 13:12:10 pantopraz ole 40 mg tablet,de layed release 2021 [facility], [facility], [place], [address], 13:12:13 oxybutyni n chloride ER 10 mg tablet,ex tended release 24 hr 2021 [id number], [address], [place], [address], 13:10:36 olmesarta n 40 mg tablet 2020 [email or web address] [facility], [facility], [place], [address], 19:28:07 citalopra m 20 mg tablet 2020 021 [facility] [place], [address], 14:27:53 amlodipin e 5 mg tablet [email or web address] [facility] [place], [address], 13:03:53 olmesarta n 40 mg tablet 2020 021 [email or web address] [place], [address], 17:07:39 pantopraz ole 40 mg tablet,de layed release 2020 021 [facility], [place], [address], 12:28:29 citalopra m 20 mg tablet 2020 021 [facility], [place], [address], 12:28:27 amlodipin e 5 mg tablet 2020 021 [id number], [address], [address], 13:03:53 Patient TargetsNo targets recorded. Patient Instructions Encounter Date Encounter Id Patient Instructions Last Modified By Organization Details Last Modified Time 02/22/[id number] mammogram pending for 03/2022 [email or web address] Not available 02/22/2022 13:11:39 Reason for Referral None Reported. Results Created Date Observation Date Name Description Value Unit Range Abnormal Flag Note LastModifiedBy Organization Detail LastModifiedTime 11/30/1911/30/2021 TSH+F REE T4 TSH 1.670 uIU/m L 0.450- 4.500 Not Available [facility] ([facility]) [address] [place], [address], 11/30/2021 14:36:51 11/30/19 22 11/30/2021 TSH+F REE T4 T4,free(dire ct) 0.96 NG/dL 0.82-1 .77 Not Available [facility] ([facility]) [address] [place], [address], 11/30/2021 14:36:51 11/30/19 22 11/29/2021 CBC WITH DIFFE RENTI AL/PL ATELE T WBC 6.3 x10e3 /uL 3.4-10 .8 Not Available [facility] ([facility]) [address] [place], [address], 11/30/2021 14:36:52 11/30/19 22 11/29/2021 CBC WITH DIFFE RENTI AL/PL ATELE T RBC 4.50 x10e6 /uL 3.77-5 .28 Not Available [facility] ([facility]) [address] [place], [address], 11/30/2021 14:36:52 11/30/19 22 11/29/2021 CBC WITH DIFFE RENTI AL/PL ATELE T hemoglobin 9.6 g/dL 11.1-1 5.9 below low normal Not Available [facility] ([facility]) [address] [place], [address], 11/30/2021 14:36:52 11/30/19 22 11/29/2021 CBC WITH DIFFE RENTI AL/PL ATELE T hematocrit 32.1 % 34.0-4 6.6 below low normal Not Available [facility] ([facility]) [address] [place], [address], 11/30/2021 14:36:52 11/30/19 22 11/29/2021 CBC WITH DIFFE RENTI AL/PL ATELE T MCV 71 fL 79-97 below low normal Not Available [facility] ([facility]) [address] [place], [address], 11/30/2021 14:36:52 11/30/19 22 11/29/2021 CBC WITH DIFFE RENTI AL/PL ATELE T MCH 21.3 pg 26.6-3 3.0 below low normal Not Available [facility] ([facility]) [address] [place], [address], 11/30/2021 14:36:52 11/30/19 22 11/29/2021 CBC WITH DIFFE RENTI AL/PL ATELE T MCHC 29.9 g/dL 31.5-3 5.7 below low normal Not Available [facility] ([facility]) [address] [place], [address], 11/30/2021 14:36:52 11/30/19 22 11/29/2021 CBC WITH DIFFE RENTI AL/PL ATELE T RDW 15.5 % 11.7-1 5.4 above high normal Not Available [facility] ([facility]) [address] [place], [address], 11/30/2021 14:36:52 11/30/19 22 11/29/2021 CBC WITH DIFFE RENTI AL/PL ATELE T platelets 443 x10e3 /uL 150-45 0 Not Available [facility] ([facility]) [address] [place], [address], 11/30/2021 14:36:52 11/30/19 22 11/29/2021 CBC WITH DIFFE RENTI AL/PL ATELE T neutrophils 60 % not estab. Not Available [facility] ([facility]) [address] [place], [address], 11/30/2021 14:36:52 11/30/19 22 11/29/2021 CBC WITH DIFFE RENTI AL/PL ATELE T lymphs 27 % not estab. Not Available [facility] ([facility]) [address] [place], [address], 11/30/2021 14:36:52 11/30/19 22 11/29/2021 CBC WITH DIFFE RENTI AL/PL ATELE T monocytes 10 % not estab. Not Available [facility] ([facility]) [address] [facility], [place], [address], 11/30/2021 14:36:52 11/30/19 22 11/29/2021 CBC WITH DIFFE RENTI AL/PL ATELE T eos 2 % not estab. Not Available [facility] ([facility]) [address] [facility], [place], [address], 11/30/2021 14:36:52 11/30/19 22 11/29/2021 CBC WITH DIFFE RENTI AL/PL ATELE T basos 1 % not estab. Not Available [facility] ([facility]) [address] [place], [address], 11/30/2021 14:36:52 11/30/19 22 11/29/2021 CBC WITH DIFFE RENTI AL/PL ATELE T immature cells DENTAL THERAPIST Not Available [facility] ([facility]) [address] [place], [address], 11/30/2021 14:36:52 11/30/19 22 11/29/2021 CBC WITH DIFFE RENTI AL/PL ATELE T neutrophils (absolute) 3.7 x10e3 /uL 1.4-7. 0 Not Available [facility] ([facility]) [address] [place], [address], 11/30/2021 14:36:52 11/30/19 22 11/29/2021 CBC WITH DIFFE RENTI AL/PL ATELE T lymphs (absolute) 1.7 x10e3 /uL 0.7-3. 1 Not Available [facility] ([facility]) [address] [facility], [place], [address], 11/30/2021 14:36:52 11/30/19 22 11/29/2021 CBC WITH DIFFE RENTI AL/PL ATELE T monocytes(ab solute) 0.6 x10e3 /uL 0.1-0. 9 Not Available [facility] ([facility]) [address] [facility], [place], [address], 11/30/2021 14:36:52 11/30/19 22 11/29/2021 CBC WITH DIFFE RENTI AL/PL ATELE T eos (absolute) 0.2 x10e3 /uL 0.0-0. 4 Not Available [facility] ([facility]) [address] [facility], [place], [address], 11/30/2021 14:36:52 11/30/19 22 11/29/2021 CBC WITH DIFFE RENTI AL/PL ATELE T baso (absolute) 0.1 x10e3 /uL 0.0-0. 2 Not Available [facility] ([facility]) [address] [facility], [place], [address], 11/30/2021 14:36:52 11/30/19 22 11/29/2021 CBC WITH DIFFE RENTI AL/PL ATELE T immature granulocytes 0 % not estab. Not Available [facility] ([facility]) [address] [place], [address], 11/30/2021 14:36:52 11/30/19 22 11/29/2021 CBC WITH DIFFE RENTI AL/PL ATELE T immature grans (abs) 0.0 x10e3 /uL 0.0-0. 1 Not Available [facility] ([facility]) [address] [facility], [place], [address], 11/30/2021 14:36:52 11/30/19 22 11/29/2021 CBC WITH DIFFE RENTI AL/PL ATELE T NRBC DENTAL THERAPIST Not Available [facility] ([facility]) [address] [facility], [place], [address], 11/30/2021 14:36:52 11/30/19 22 11/29/2021 CBC WITH DIFFE RENTI AL/PL ATELE T hematology comments: DENTAL THERAPIST Not Available [facility] ([facility]) [address] [facility], [place], [address], 11/30/2021 14:36:52 11/30/19 22 11/29/2021 COMP. METAB OLIC PANEL (14) glucose 131 mg/dL 65-99 above high normal Not Available [facility] ([facility]) [address] [facility], [place], [address], 11/30/2021 14:36:52 11/30/19 22 11/29/2021 COMP. METAB OLIC PANEL (14) BUN 14 mg/dL 8-27 Not Available [facility] ([facility]) [address] [place], [address], 11/30/2021 14:36:52 11/30/19 22 11/29/2021 COMP. METAB OLIC PANEL (14) creatinine 0.99 mg/dL 0.57-1 .00 Not Available [facility] ([facility]) [address] [facility], [place], [address], 11/30/2021 14:36:52 11/30/19 22 11/29/2021 COMP. METAB OLIC PANEL (14) eGFR 59 mL/mi n/1.7 3 >59 below low normal Not Available [facility] ([facility]) [address] [place], [address], 11/30/2021 14:36:52 11/30/19 22 11/29/2021 COMP. METAB OLIC PANEL (14) BUN/creatini ne ratio 14 12-28 Not Available [facility] ([facility]) [address] [place], [address], 11/30/2021 14:36:52 11/30/19 22 11/29/2021 COMP. METAB OLIC PANEL (14) sodium 139 mmol/ L 134-14 4 Not Available [facility] ([facility]) [address] [place], [address], 11/30/2021 14:36:52 11/30/19 22 11/29/2021 COMP. METAB OLIC PANEL (14) potassium 5.0 mmol/ L 3.5-5. 2 Not Available [facility] ([facility]) [address] [place], [address], 11/30/2021 14:36:52 11/30/19 22 11/29/2021 COMP. METAB OLIC PANEL (14) chloride 102 mmol/ L 96-106 Not Available [facility] ([facility]) [address] [place], [address], 11/30/2021 14:36:52 11/30/19 22 11/29/2021 COMP. METAB OLIC PANEL (14) carbon dioxide, total 23 mmol/ L 20-29 Not Available [facility] ([facility]) [address] [place], [address], 11/30/2021 14:36:52 11/30/19 22 11/29/2021 COMP. METAB OLIC PANEL (14) calcium 9.2 mg/dL 8.7-10 .3 Not Available [facility] ([facility]) [address] [place], [address], 11/30/2021 14:36:52 11/30/19 22 11/29/2021 COMP. METAB OLIC PANEL (14) protein, total 6.9 g/dL 6.0-8. 5 Not Available [facility] ([facility]) [address] [place], [address], 11/30/2021 14:36:52 11/30/19 22 11/29/2021 COMP. METAB OLIC PANEL (14) albumin 4.3 g/dL 3.7-4. 7 Not Available [facility] ([facility]) [address] [facility], [place], [address], 11/30/2021 14:36:52 11/30/19 22 11/29/2021 COMP. METAB OLIC PANEL (14) globulin, total 2.6 g/dL 1.5-4. 5 Not Available [facility] ([facility]) [address] [facility], [place], [address], 11/30/2021 14:36:52 11/30/19 22 11/29/2021 COMP. METAB OLIC PANEL (14) A/G ratio 1.7 1.2-2. 2 Not Available [facility] ([facility]) [address] [facility], [place], [address], 11/30/2021 14:36:52 11/30/19 22 11/29/2021 COMP. METAB OLIC PANEL (14) bilirubin, total 0.2 mg/dL 0.0-1. 2 Not Available [facility] ([facility]) [address] [facility], [place], [address], 11/30/2021 14:36:52 11/30/19 22 11/29/2021 COMP. METAB OLIC PANEL (14) alkaline phosphatase 76 IU/L 44-121 Not Available [facility] ([facility]) [address] [facility], [place], [address], 11/30/2021 14:36:52 11/30/19 22 11/29/2021 COMP. METAB OLIC PANEL (14) AST (SGOT) 13 IU/L 0-40 Not Available [facility] ([facility]) [address] [facility], [place], [address], 11/30/2021 14:36:52 11/30/19 22 11/29/2021 COMP. METAB OLIC PANEL (14) ALT (SGPT) 15 IU/L 0-32 Not Available [facility] ([facility]) [address] [place], [address], 11/30/2021 14:36:52 11/30/19 22 11/29/2021 LIPID PANEL cholesterol, total 181 mg/dL 100-19 9 Not Available [facility] ([facility]) [address] [place], [address], 11/30/2021 14:36:53 11/30/19 22 11/29/2021 LIPID PANEL triglyceride s 194 mg/dL 0-149 above high normal Not Available [facility] ([facility]) [address] [place], [address], 11/30/2021 14:36:53 11/30/19 22 11/29/2021 LIPID PANEL HDL cholesterol 48 mg/dL >39 Not Available [facility]) [address] [facility], [address], 11/30/2021 14:36:53 11/30/19 22 11/29/2021 LIPID PANEL VLDL cholesterol jamison 33 mg/dL 5-40 Not Available [facility] ([facility]) [address] [place], [address], 11/30/2021 14:36:53 11/30/19 22 11/29/2021 LIPID PANEL LDL chol calc ([facility]) 100 mg/dL 0-99 above high normal Not Available [facility] ([facility]) [address] [place], [address], 11/30/2021 14:36:53 11/30/19 22 11/29/2021 LIPID PANEL comment: DENTAL THERAPIST Not Available [facility] ([facility]) [address] [place], [address], 11/30/2021 14:36:53 11/30/19 22 11/30/2021 VITAM IN D, 1,25 + 25-HY DROXY calcitriol(1 ,25 di-oh vit D) 50.6 pg/mL 24.8-8 1.5 Ple ase note refer ence inter sara meyer e Not Available [facility] ([facility]) [address] [facility], [place], [address], 11/30/2021 14:36:53 11/30/19 22 11/30/2021 VITAM IN D, 1,25 + 25-HY DROXY vitamin D, 25-hydroxy 36.0 NG/mL 30.0-1 00.0 Vitam in D defic iency has been defin ed by the Insti tute of Medic ine and an Endoc rine Socie ty pract ice guide line as a level of serum 25-OH vitam in D less than 20 ng/mL (1,2) . The Endoc rine Socie ty went on to furth er defin e vitam in D insuf ficie ncy as a level betwe en 21 and 29 ng/mL (2). 1. IOM (Inst itute of Medic ine). 2010. Dieta ry refer rayshawn rodríguez es for calci um and D. Monica rich [place]: The [facility] Press . 2. Fransisco whitley MF, Jhon hameed [place], Anup off-F errar i YOUNGBLOOD, et al. Evalu ation , treat ment, and preve ntion of vitam in D defic iency : an Endoc rine Socie ty clini jamison pract ice guide line. JCEM. 2010; 96(7) :1911 -30. Not Available [facility] ([facility]) [address] [facility], [place], [address], 11/30/2021 14:36:53 02/23/20 22 02/23/2022 CBC WITH PLATE LET AND DIFFE RENTI AL WBC 7.9 K/uL 3.8-11 .5 Not Available [facility]) [address] [facility] [address], [place], [address], 02/23/2022 09:24:18 02/23/20 22 02/23/2022 CBC WITH PLATE LET AND DIFFE RENTI AL red blood cell count (RBC) 4.67 M/mm3 3.60-5 .30 Not Available [facility]) [address] [place] [address] [address], [place], [address], 02/23/2022 09:24:18 02/23/20 22 02/23/2022 CBC WITH PLATE LET AND DIFFE RENTI AL hemoglobin (HGB) 13.1 gm/dL 11.5-1 5.5 Not Available [facility] ([facility]) [address] [place] [address] [address], [place], [address], 02/23/2022 09:24:18 02/23/20 22 02/23/2022 CBC WITH PLATE LET AND DIFFE RENTI AL hematocrit (HCT) 39.1 % 35.2-4 6.4 Not Available [facility] ([facility]) [address] [place] [address] [address], [place], [address], 02/23/2022 09:24:18 02/23/20 22 02/23/2022 CBC WITH PLATE LET AND DIFFE RENTI AL MCV 83.7 fL 79.0-9 9.0 Not Available [facility] ([facility]) [address] [place] [address] [address], [place], [address], 02/23/2022 09:24:18 02/23/20 22 02/23/2022 CBC WITH PLATE LET AND DIFFE RENTI AL MCH 28.1 pg 26.9-3 5.0 Not Available [facility]) [address] [place] [address] [address], [place], [address], 02/23/2022 09:24:18 02/23/20 22 02/23/2022 CBC WITH PLATE LET AND DIFFE RENTI AL MCHC 33.5 g/dL 30.4-3 4.8 Not Available [facility] ([facility]) [facility] [address], [place], [address], 02/23/2022 09:24:18 02/23/20 22 02/23/2022 CBC WITH PLATE LET AND DIFFE RENTI AL RDW NM fL 38.6-5 3.8 Unabl e to repor t RDW due to dimor phic red cell popul ation Not Available [facility]) [facility] [address], [place], [address], 02/23/2022 09:24:18 02/23/20 22 02/23/2022 CBC WITH PLATE LET AND DIFFE RENTI AL platelet count 332 K/cum m 137-39 7 Not Available [facility] ([facility]) [address] [place] [address] [address], [place], [address], 02/23/2022 09:24:18 02/23/20 22 02/23/2022 MANUA L DIFFE RENTI AL REVIE W/COU NT absolute immature granulocyte manual 0.00 K/uL 0.00-0 .03 Not Available [facility] ([facility]) [facility] [address], [place], [address], 02/23/2022 09:24:20 02/23/20 22 02/23/2022 MANUA L DIFFE RENTI AL REVIE W/COU NT absolute basophil count manual 0.1 K/uL 0.0-0. 1 Not Available [facility] ([facility]) [address] [place] [address] [address], [place], [address], 02/23/2022 09:24:20 02/23/20 22 02/23/2022 MANUA L DIFFE RENTI AL REVIE W/COU NT absolute eosinophil count manual 0.2 K/uL 0.0-0. 6 Not Available [facility] ([facility]) [address] [facility] [address], [place], [address], 02/23/2022 09:24:20 02/23/20 22 02/23/2022 MANUA L DIFFE RENTI AL REVIE W/COU NT absolute monocyte count manual 0.8 K/uL 0.3-1. 0 Not Available [facility] ([facility]) [address] [place] [address] Dr [address], [place], [address], 02/23/2022 09:24:20 02/23/20 22 02/23/2022 MANUA L DIFFE RENTI AL REVIE W/COU NT absolute lymphocyte count manual 3.0 K/uL 0.9-3. 6 Not Available [facility] ([facility]) [facility] [address], [place], [address], 02/23/2022 09:24:20 02/23/20 22 02/23/2022 MANUA L DIFFE RENTI AL REVIE W/COU NT absolute neutrophil count manual 3.9 K/uL 2.0-8. 2 Not Available [facility] ([facility]) [address] [place] [address] Dr [address], [place], [address], 02/23/2022 09:24:20 02/23/20 22 02/23/2022 MANUA L DIFFE RENTI AL REVIE W/COU NT microcytosis SLIGHT Not Available [facility] ([facility]) [address] [place] [address] Dr [address], [place], [address], 02/23/2022 09:24:20 02/23/20 22 02/23/2022 MANUA L DIFFE RENTI AL REVIE W/COU NT anisocytosis MODERA TE Not Available [facility] ([facility]) [address] [place] [address] Dr [address], [place], [address], 02/23/2022 09:24:20 02/23/20 22 02/23/2022 MANUA L DIFFE RENTI AL REVIE W/COU NT poikilocytos is SLIGHT Not Available [facility] [address] [place] [address] Dr [address], [place], [address], 02/23/2022 09:24:20 02/23/20 22 02/23/2022 MANUA L DIFFE RENTI AL REVIE W/COU NT fragmented cells FEW Not Available [facility]) [address] [place] [address] Dr [address], [place], [address], 02/23/2022 09:24:20 02/23/20 22 02/23/2022 MANUA L DIFFE RENTI AL REVIE W/COU NT ovalocytes FEW Not Available [facility] [address] [place] [address] Dr [address], [place], [address], 02/23/2022 09:24:20 02/23/20 22 02/23/2022 MANUA L DIFFE RENTI AL REVIE W/COU NT platelet slide review NORMAL Plate let clump s noted . True plate let count may be highe r than repor esvin. Not Available [facility] [address] [place] [address] Dr [address], [place], [address], 02/23/2022 09:24:20 02/23/20 22 02/23/2022 MANUA L DIFFE RENTI AL REVIE W/COU NT neutrophils- manual 49 % 41-77 Not Available [facility] ([facility]) [address] [place] [address] Dr [address], [place], [address], 02/23/2022 09:24:20 02/23/20 22 02/23/2022 MANUA L DIFFE RENTI AL REVIE W/COU NT lymphocytes manual 30 % 14-48 Not Available [facility] ([facility]) [address] [place] [address] Dr [address], [place], [address], 02/23/2022 09:24:20 02/23/20 22 02/23/2022 MANUA L DIFFE RENTI AL REVIE W/COU NT monocytes manual 10 % 4-13 Not Available [facility] ([facility]) [address] [place] [address] Dr [address], [place], [address], 02/23/2022 09:24:20 02/23/20 22 02/23/2022 MANUA L DIFFE RENTI AL REVIE W/COU NT eosinophils manual 2 % 0-8 Not Available [facility] [facility] ([facility]) [address] [place] [address] Dr Carter, [place], [address], 02/23/2022 09:24:20 02/23/20 22 02/23/2022 MANUA L DIFFE RENTI AL REVIE W/COU NT basophils manual 1 % 0-1 Not Available [facility] ([facility]) [address] [place] [address] Dr Carter, [place], [address], 02/23/2022 09:24:20 02/23/20 22 02/23/2022 MANUA L DIFFE RENTI AL REVIE W/COU NT atypical lymphocytes 8 % 0-[address] [facility] ([facility]) [address] [place] [address] Dr Carter, [place], [address], 02/23/2022 09:24:20 02/23/20 22 02/23/2022 COMPR EHENS DARYN METAB OLIC PANEL (CMP) sodium 141 mEq/L 135-14 5 Not Available [facility] ([facility]) [address] [place] [address] Dr Carter, [place], [address], 02/23/2022 09:24:20 02/23/20 22 02/23/2022 COMPR EHENS DARYN METAB OLIC PANEL (CMP) potassium 4.3 mEq/L 3.5-5. 3 Not Available [facility] ([facility]) [address] [place] [address] Dr Carter, [place], [address], 02/23/2022 09:24:20 02/23/20 22 02/23/2022 COMPR EHENS DARYN METAB OLIC PANEL (CMP) chloride 104 mEq/L 97-108 Not Available [facility] ([facility]) [address] [place] [address] Dr Carter, [place], [address], 02/23/2022 09:24:20 02/23/20 22 02/23/2022 COMPR EHENS DARYN METAB OLIC PANEL (CMP) CO2 25 mEq/L 22-32 Not Available [facility] [address] [place] [address] Dr Carter, [place], [address], 02/23/2022 09:24:20 02/23/20 22 02/23/2022 COMPR EHENS DARYN METAB OLIC PANEL (CMP) glucose 94 mg/dL 65-99 Not Available [facility]) [address] [place] [address] Dr Carter, [place], [address], 02/23/2022 09:24:20 02/23/20 22 02/23/2022 COMPR EHENS DARYN METAB OLIC PANEL (CMP) BUN 19 mg/dL 8-23 Not Available [facility]) [address] [place] [address] Dr Carter, [place], [address], 02/23/2022 09:24:20 02/23/20 22 02/23/2022 COMPR EHENS DARYN METAB OLIC PANEL (CMP) creatinine 0.84 mg/dL 0.50-1 .00 Not Available [facility] ([facility]) [address] [place] [address] Dr Carter, [place], [address], 02/23/2022 09:24:20 02/23/20 22 02/23/2022 COMPR EHENS DARYN METAB OLIC PANEL (CMP) calcium 9.5 mg/dL 8.6-10 .4 Not Available [facility] ([facility]) [address] [place] [address] Dr Carter, [place], [address], 02/23/2022 09:24:20 02/23/20 22 02/23/2022 COMPR EHENS DARYN METAB OLIC PANEL (CMP) protein 6.8 g/dL 6.0-8. 3 Not Available [facility] ([facility]) [address] [place] [address] Dr Carter, [place], [address], 02/23/2022 09:24:20 02/23/20 22 02/23/2022 COMPR EHENS DARYN METAB OLIC PANEL (CMP) albumin 4.2 g/dL 3.5-5. 3 Not Available [facility] ([facility]) [address] [place] [address] Dr Carter, [place], [address], 02/23/2022 09:24:20 02/23/20 22 02/23/2022 COMPR EHENS DARYN METAB OLIC PANEL (CMP) alkaline phosphatase 64 IU/L 35-121 Not Available [facility] ([facility]) [address] [place] [address] Dr Carter, [place], [address], 02/23/2022 09:24:20 02/23/20 22 02/23/2022 COMPR EHENS DARYN METAB OLIC PANEL (CMP) ALT (SGPT) 21 IU/L <5-47 Not Available [facility] ([facility]) [address] [place] [address] Dr Carter, [place], [address], 02/23/2022 09:24:20 02/23/20 22 02/23/2022 COMPR EHENS DARYN METAB OLIC PANEL (CMP) AST (SGOT) 15 IU/L <5-40 Not Available [facility]o -[facility] ([facility]) [address] [place] [address] Dr Carter, [place], [address], 02/23/2022 09:24:20 02/23/20 22 02/23/2022 COMPR EHENS DARYN METAB OLIC PANEL (CMP) bilirubin, total 0.2 mg/dL <0.2-1 .2 Not Available [facility] ([facility]) [address] [place] [address] Dr Carter, [place], [address], 02/23/2022 09:24:20 02/23/20 22 02/23/2022 COMPR EHENS DARYN METAB OLIC PANEL (CMP) A/G ratio 1.6 mg/dL 1.1-2. 5 Not Available [facility] [address] [place] [address] Dr Carter, [place], [address], 02/23/2022 09:24:20 02/23/20 22 02/23/2022 COMPR EHENS DARYN METAB OLIC PANEL (CMP) estimated GFR (black) 77 mL/mi n/1.7 3m2 >59 Not Available [facility] [address] [place] [address] Dr Carter, [place], [address], 02/23/2022 09:24:20 02/23/20 22 02/23/2022 COMPR EHENS DARYN METAB OLIC PANEL (CMP) estimated GFR (other) 67 mL/mi n/1.7 3m2 >59 GFR Categ ories in Chron ic Kidne y Disea se (CKD) GFR Categ ory GFR (mL/m in/1. 73 sq. meter s) Inter preta tion G1 90 or great er Asya l or high* G2 60-89 Mild decre ase* G3a 45-59 Mild to moder ate decre ase G3b 30-44 Moder ate to sever e decre ase G4 15-29 Sever e decre ase G5 14 or less Kidne y failu re *In the absen ce of erika stevenson er GFR categ ory G1 or G2 fulfi ll the crite tammy for CKD (Kidradha ey Int Suppl 2013; 3.1-1 50) The CKD-E PI calcu latio n is inten ded for use in patie nts 18 years of age and older . Decre ased calcu latio n accur acy may be seen in patie nts takin g medic ation s that affec t renal excre tion, or in those patie nts with extre mes in muscl e mass or diet. Not Available [facility] ([facility]) [address] [place] [address] Dr Carter, [place], [address], 02/23/2022 09:24:20 02/23/20 22 02/23/2022 PERCE NT SATUR ATION WITH IRON AND IBC iron 80 ug/dL 37-145 Not Available [facility] ([facility]) [address] [place] [address] Dr Carter, [place], [address], 02/23/2022 09:24:21 02/23/20 22 02/23/2022 PERCE NT SATUR ATION WITH IRON AND IBC iron binding cap 386 ug/dL 250-45 0 Not Available [facility] ([facility]) [address] [place] [address] Dr Carter, [place], [address], 02/23/2022 09:24:21 02/23/20 22 02/23/2022 PERCE NT SATUR ATION WITH IRON AND IBC percent saturation 21 % 15-50 Not Available Path [facility] -[facility] ([facility]) [address] [place] [address] Dr Carter, [place], [address], 02/23/2022 09:24:21 02/23/20 22 02/23/2022 BELEM TIN ferritin 36.5 NG/mL 13.0-3 01.0 Not Available [facility] [address] [place] [address] Dr Carter, [place], [address], 02/23/2022 09:24:22 02/23/20 22 02/23/2022 HEMOG LOBIN A1C hemoglobin A1C 5.9 % <5.7 high The follo wing HbA1c range s recom sarah d by the Gisele man Diabe deni Assoc iatio n (ADA) may be used as an aid in the diagn osis of diabe deni melli tus. HA1c Jean ash Diagn osis >=6.5 % Diabe tic 5.7% - 6.4% Pre-D iabet ic <5.7% Non-D iabet ic Not Available [facility] ([facility]) [address], [place], [address], 02/23/2022 09:24:23 02/23/20 22 02/23/2022 HEMOG LOBIN A1C estimated average glucose 123 mg/dL [place] ge Gluco se is calcu lated using the equat ion AG = (28.7 x HgbA1 c) - 46.7 based on the guide lines estab lisfredy d by the ADA. Not Available [facility] ([facility] [address], [place], [address], 02/23/2022 09:24:23 10/10/19 21 09/21/2020 CT, angio gram, chest , w/wo contr ast No observ ation record ed. BARCODE Not Available 2020 08:28:47 10/10/19 21 09/24/2020 elect roscoe diogr am No observ ation record ed. BARCODE Not Available 2020 08:28:47 07/08/19 MRI, lumba r spine , w/wo contr ast No observ ation record ed. [email or web address] Not Available 07/09 11:06:23 07/08/19 22 07/07/2021 MRI, lumba r spine , w/o contr ast No observ ation record ed. [email or web address] [facility] [address] [place], [place] [address], [place], [address], 07/09/2021 10:53:42 04/20/20 22 04/20/2022 DEXA, axial skele ton + verte bral fract ure asses sment No observ ation record ed. [email or web address] [facility] (Administrati on) [address], [place], [address], 04/25/2022 14:32:46 Result Notes None recorded. Problems Name Problem SNOMED Code Status Onset Date Resolution Date Notes Provider Name and Address Organization Details Recorded Time Gastroesophag eal reflux disease without esophagitis 291988649 Active 2018 Not Available [facility] 14:09:48 Anxiety 22340768 Active 2018 Not Available [facility] 14:09:48 Diarrhea 15361785 Active 2018 Not Available [facility] 14:09:48 Hemorrhoids 29991305 Active 2018 Not Available [facility] 14:09:48 Hyperlipidemi a 63023892 Active 2018 Not Available [facility] 14:09:48 Hypertensive disorder 58791776 Active 2018 Not Available [facility] 14:09:48 Prolapsed lumbar intervertebra l disc 424426186 Active 2018 Not Available [facility] 14:09:48 Prediabetes 494709756 Active 2018 Not Available [facility] 14:09:48 Problem Notes None recorded. Procedures Surgical History Date Name Laterality Status Provider Name and Address Organization Details Recorded Time 01/14/20 21 Most Recent Mammogram completed FEDERICO TORRES [place] [facility] 03/08/2021 13:55:22 01/16/20 19 mammography completed Julia Harding [place] [facility] [place] 04/03/2019 13:18:13 Hysterectomy completed Atiya Dior MD [address], [place], [address], [facility] [place] 04/03/2019 10:04:22 Appendectomy completed Atiya Dior MD [address], [place], [address], [facility] [place] 04/03/2019 10:04:33 Tubal Ligation completed Atiya Dior MD [address], [place], [address], [facility] [place] 04/03/2019 10:04:42 Tonsillectomy completed Atiya Dior MD [address], [place], [address], [facility] [place] 04/03/2019 10:04:53 Cholecystectomy completed Atiya Dior MD [address], [place], [address], [facility] 04/03/2019 10:05:00 Imaging Results Imaging Date Name Status LastModified by Organization Details LastModified Time 09/21/2020 CT, angiogram, chest, w/wo contrast completed [facility] Information not available 10/09/2020 08:28:47 09/24/2020 electrocardiogram completed [facility] Informa tion not available 10/09/2020 08:28:47 07/08/2021 MRI, lumbar spine, w/wo contrast completed [email or web address] Information not available 07/09/2021 11:06:23 07/07/2021 MRI, lumbar spine, w/o contrast completed [email or web address] [facility]iology [address], [place], [address], 07/09/2021 10:53:42 04/20/2022 DEXA, axial skeleton + vertebral fracture [facility] [place] [address] (Administration ) [address] [place], [address], 04/25/2022 14:32:46 Procedure Notes None recorded. Medical Equipment None Reported. Allergies Allergen ID Allergen Name Allergen Category Reaction Reaction Severity Criticality Documentation Date Start Date Code Code System Note Provider Name and Address Organization Details Recorded Time 179 codeine medicatio n Not available Not available Not available 04/03/2019 2670 RxNorm Atiya quarles MD [address] [facility], [place], [address], [facility], [place] 9 10:01:14 180 acetamino phen / oxycodone medicatio n Not available Not available Not available 04/03/2019 00780 3 RxNorm Atiya quarles MD [address], [place], [address], [facility], [place] 9 10:01:20 Medications Name Sig Start Date Stop Date Status Note LastModified by Organization Details LastModified Time rolando/dic/lid o/fidel APPLY TO THE AFFECTED AREA(S) THREE TO FOUR times daily NEEDED 02/22 completed Not Available Not Available Not Available Prescriptio n - Clarificati on 04/21 completed Not Available Not Available Not Available rolando 2/di 2/li 4/indira 3% APPLY TO THE AFFECTED AREA(S) THREE TO FOUR TIMES DAILY 02/22 completed Not Available Not Available Not Available ketoconazol e 2 % shampoo SHAMPOO TO SCALP DAILY. LEAVE ON 5-10 MINUTES THEN RINSE OFF 02/22 completed Not Available Not Available Not Available Celexa 10 mg tablet Take 1 tablet every day by oral route. 04/03 completed Not Available Not Available Not Available oxybutynin chloride ER 10 mg tablet,exte nded release 24 hr Take 1 tablet every day by oral route for 30 days. 02/22 completed Not Available Not Available Not Available ofloxacin 0.3 % eye drops PLEASE SEE ATTACHED FOR DETAILED DIRECTION S 02/22 completed Not Available Not Available Not Available amlodipine 5 mg tablet TAKE 1 TABLET BY MOUTH EVERY DAY active Not Available Not Available No t Available tramadol 50 mg tablet 11/06 completed Not Available Not Available Not Available ketorolac 0.5 % eye drops PLEASE SEE ATTACHED FOR DETAILED DIRECTION S 02/22 completed Not Available Not Available Not Available hydrocortis one 2.5 % topical cream with perineal applicator APPLY A THIN LAYER TO THE AFFECTED AREA(S) BY TOPICAL ROUTE 2-4 TIMESDAIL Y 04/03 completed Not Available Not Available Not Available terbinafine HCl 250 mg tablet TAKE 1 TABLET BY MOUTH EVERY DAY 02/22 completed Not Available Not Available Not Available citalopram 20 mg tablet TAKE 1 TABLET BY MOUTH EVERY DAY active Not Available Not Available No t Available famotidine 20 mg tablet TAKE 1 TABLET BY MOUTH TWICE A DAY 04/21 completed Not Available Not Available Not Available prednisolon e acetate 1 % eye drops,suspe nsion PLEASE SEE ATTACHED FOR DETAILED DIRECTION S 02/22 completed Not Available Not Available Not Available meclizine 25 mg tablet Take 1 tablet 3 times a day by oral route as needed. active Not Available Not Available No t Available pantoprazol e 40 mg tablet,benita yed release TAKE 1 TABLET BY MOUTH EVERY DAY active Not Available Not Available No t Available metronidazo le 0.75 % topical cream active Not Available Not Available Not Available gabapentin 300 mg capsule TAKE 1 CAPSULE BY MOUTH TWICE A DAY 02/22 completed Not Available Not Available Not Available hydrocortis one 2.5 % topical cream 04/21 completed Not Available Not Available Not Available hydrochloro thiazide 25 mg tablet Take 1 tablet every day by oral route for 90 days. 07/04 completed Not Available Not Available Not Available gabapentin 100 mg capsule TAKE 1 CAPSULE BY MOUTH AT BEDTIME FOR 3 DAYS, 2 CAPS AT BEDTIME FOR 3 DAYS, THEN 3 CAPS AT BEDTIME active Not Available Not Available No t Available clobetasol 0.05 % scalp solution APPLY A SMALL AMOUNT TO SCALP EVERY EVENING X 2 WEEKS THEN TAKE BREAK active Not Available Not Available No t Available olmesartan 20 mg tablet Take 1 tablet every day by oral route for 90 days. 07/24 completed Not Available Not Available Not Available olmesartan 40 mg tablet Take 1 tablet every day by oral route for 90 days. active Not Available Not Available No t Available Vitamin C active Not Available Not Fadia ilable Not Available echinacea active Not Available Not Fadia ilable Not Available multivitami n active Not Available Not Available Not Available BD Insulin Syringe Ultra-Fine 1 mL 31 gauge x 10/04 TAKE 1 MISC [SPECIFY METHOD] EVERY DAY (ONCE A DAY) active Not Available Not Available No t Available Shingrix (PF) 50 mcg/0.5 mL intramuscul ar suspension, kit [facility] 10/09 completed Not Available Not Available Not Available turmeric active Not Available Not Avai lable Not Available Vitals Date Recorded Body height Body temperature Body mass index (BMI) Body weight Heart rate Respiratory rate Oxygen saturation Oxygen saturation in Arterial blood by Pulse oximetry Systolic blood pressure Diastolic blood pressure Provider Name and Address Organization Details Last Updated DateTime 1 154.94 cm 97.8 [degF] 40.8 kg/m2 89700.9 5 g 94 /min 16 /min 95 % 95 % 143 mm[Hg] 75 mm[Hg] FEDERICO TORRES [facility], [place] 1 13:51:43 Date Recorded Body height Oxygen saturation Oxygen saturation in Arterial blood by Pulse oximetry Respiratory rate Heart rate Systolic blood pressure Diastolic blood pressure Provider Name and Address Organization Details Last Updated DateTime 2 154.94 cm 96 % 96 % 18 /min 103 /min 157 mm[Hg] 81 mm[Hg] FEDREICO TORRES [facility], [place] 2 13:21:21 Date Recorded Body temperature Body mass index (BMI) Body weight Provider Name and Address Organization Details Last Updated DateTime 08/23/2021 97.4 [degF] 40.3 kg/m2 77974.61 g SHARONA HIGGINS NP-C [address] [facility] [address] [place] [address], [address], [facility] [place] 08/23/2021 12:58:22 Date Recorded Body height Body temperature Body mass index (BMI) Body weight Respiratory rate Oxygen saturation Oxygen saturation in Arterial blood by Pulse oximetry Heart rate Systolic blood pressure Diastolic blood pressure Provider Name and Address Organization Details Last Updated DateTime 2 154.94 cm 97.7 [degF] 40.2 kg/m2 03108.1 g 16 /min 96 % 96 % 93 /min 136 mm[Hg] 85 mm[Hg] CARMELLA STEINBERG [facility], [place] 2 12:41:15 Date Recorded Body height Heart rate Respiratory rate Oxygen saturation Oxygen saturation in Arterial blood by Pulse oximetry Body temperature Body mass index (BMI) Body weight Systolic blood pressure Diastolic blood pressure Provider Name and Address Organization Details Last Updated DateTime 1 154.94 cm 90 /min 16 /min 96 % 96 % 97.5 [degF] 39 kg/m2 06033.1 8 g 149 mm[Hg] 78 mm[Hg] Mary Bhagat [facility], [place] 1 12:33:24 Date Recorded Body height Body temperature Heart rate Respiratory rate Oxygen saturation Oxygen saturation in Arterial blood by Pulse oximetry Body mass index (BMI) Body weight Systolic blood pressure Diastolic blood pressure Provider Name and Address Organization Details Last Updated DateTime 1 154.94 cm 98 [degF] 101 /min 18 /min 98 % 98 % 38.1 kg/m2 39677.2 5 g 125 mm[Hg] 77 mm[Hg] Mary Bhagat [facility], [place] 1 11:58:26 Social History Question Answer Notes LastModified by Organizat ion Details LastModified Time Tobacco Smoking Status Former Smoker Atiya Dior MD [address] [facility] [address] [place] [address], [address] [place] 04/03/2019 10:06:33 Do You Have An Advance Directive? Yes [email or web address] Information not available 04/03/2019 What Is Your Level Of Alcohol Consumption? None [email or web address] Information not available 04/03/2019 What Is Your Level Of Caffeine Consumption? Occasional [email or web address] Information not available 04/03/2019 Are You Currently Employed? No Information not available 03/08/2021 What Type Of Diet Are You Following? REGULAR Information not available 03/08/2021 What Is The Highest Grade Or Level Of School You Have Completed Or The Highest Degree You Have Received? [id number] Information not available 03/08/2021 When Did You Quit Smoking? 16+yearssincel [email or web address] Information not available 03/08/2021 Live Alone Or With Others? Alone [email or web address] Information not available 04/03/2019 What Was The Date Of Your Most Recent Tobacco Screening? 03/08/2021 Information not available 03/08/2021 How Many Children Do You Have? 2 [email or web address] Information not available 04/03/2019 What Is Your Relationship Status? Information not available 03/08/2021 At What Age Did You Start Smoking Tobacco? 16 Information not available 03/08/2021 General Stress Level Low Information not available 04/03/2019 Do You Use Any Illicit Or Recreational Drugs? No Information not available 03/08/2021 How Many Years Have You Smoked Tobacco? 36 Information not available 03/08/2021 Sex: Unknown Functional Status Question Answer Note LastModified by Organizat ion Details LastModified Time Are you able to walk? YESWOREST Information not available 03/08/2021 Are you able to care for yourself? Yes [email or web address] Information not available 04/03/2019 What is your exercise level? Occasional Information not available 03/08/2021 Mental Status None recorded. Family History Relationship Description Onset Age of this Age Resolved Age Notes LastModified by Organization Details LastModified Time Father No current problems or disability [email or web address] Not available 03/22 10:06:30 Mother No current problems or disability [email or web address] Not available 03/22 10:06:30 Medical History No medical history recorded. Gynecological History Statement/Question Response STIs/STDs N HPV Vaccine N Abnormal Pap N If Post Menopausal, Age at Menopause 48 Sexual Problems? N Most Recent Mammogram 01/13/2021 Sexually Active? N Obstetrics History GPAL:G 0 P 0 0 0 0 Immunizations Vaccine Type Date Status Note Provider Nam e and Address Organization Details Recorded Time Influenza, split virus, quadrivalent, preservative 9 completed [place] 10/09/2020 12:31:23 zoster recombinant 0 [place] 10/09/2020 12:31:23 Influenza, split virus, quadrivalent, preservative 0 [place] 10/09/2020 12:31:23 zoster recombinant 1 [place] 10/09/2020 12:31:23 COVID-19, mRNA, LNP-S, PF, 30 mcg/0.3 mL dose 1 completed FEDERICO guadarrama [place] [facility], [place] 03/22/2021 08:30:16 Past Encounters Encounter ID Performer Location Encounter Start Date Encounter Closed Date Diagnosis/Indication Diagnosis SNOMED-CT Code Diagnosis ICD10 Code Diagnosis Note [id number] Atiya Dior MD Main Office [address] [employer] [address] [place] [id number] 04/03/2019 13:02:56 04/03/2019 13:53:59 Gastroesophageal reflux disease without esophagitis 713606479 K21.9 pt having reflux every day and using tums advised pt to try pepcid - will give script avoid dietary triggers weight loss advised Prolapsed lumbar intervertebral disc 364173400 M51.[address] Joya - getting shots every 90 days. debating surgery. Screening for malignant neoplasm of colon 885318664 Z12.11 pt has always done colonoscop y that was normal. she lives alone and getting to and from a colonoscop y would be difficult. will order cologuard. Anxiety 92748227 F41.9 stable on current meds. will continue current care. Hypertensive disorder 38 524240 I10 BP goal < 150/90 continue current care low salt diet and daily exercise recommende d Monitor BP at home and Return to care if elevated above 150/90 >50% of the time. Hyperlipidemia 26482398 E78.5 stable on current meds. will continue current care - weight loss advised and check labs. Prediabetes 308207692 R7 3.03 last A1c was 6.3 advised lifestyle changes 1431 Sukhwinder Vazquez MD Main Office [address] [employer] [address] [place] [id number] 1 07/04/2019 13:53:17 07/04/2019 15:09:10 Postural dizziness [id number] R42 -suspect orthostati c in nature as only occurs when standing -BP normal however HR goes from 92 to 110 upon standing and positive dizziness -no dizziness/ nystagmus with head thrust -check BMP, hgb -stop HCTZ and continue olmsartan only -orthostat ic dizziness education given Tachycardia [id number] R00. 0 suspect all orthostati c related, however resting still in 90's is normal for her. -standing >110 -EKG shows normal rhythm Low back pain [id number] M54.5 Needs to have back surgery and requires clearance. -no exertional or non exertional chest pain -exercises 3 times week -Intermedi ate risk surgery with 4 mets , no clinical risk factors -BMP, cbc normal can proceed to surgery without further testing - medically optimized for surgery. -EKG shows NSR at rest Pre-surger y evaluation [id number] Z01.818 pt needs back surgery clearance. labs and EKG performed and were WNL. medically optimized for surgery. 1738 Atiya Dior MD Main Office [facility] [employer] [facility] [address] [place] [phone] 1 07/25/2019 13:21:07 07/25/2019 13:47:25 Hypertensive disorder [id number] I10 BP goal < 150/90 will increase olmesartan to 40mg daily to help with BP low salt diet and daily exercise recommende d Monitor BP at home and Return to care if elevated above 150/90 >50% of the time. 5590 NIMA FARLEY Main Office [address] [id number] 04/21/2020 11:49:49 04/21/2020 12:38:15 Anxiety 62830068 F41.9 Patient states that covid and social distancing from friends/fa elba has been rough for her lately. Patient states she is relying on family more and doing well on her current medication . Patient encouraged to continue to stay safe while interactin g with her neighbors and continue to stay in touch with family members. [facility] Gastroesop hageal reflux disease without esophagitis [id number] K21.9 Patient advised to avoid trigger foods, such as chocolate and pasta, and stay hydrated. Patient will start protonix today and monitor symptoms. Diarrhea 55051830 R19.7 Discussed the benefits of a daily probiotic. Patient will start taking this week. Encouraged patient to stay hydrated and maintain healthy diet while avoiding any trigger foods such as diary. 8589 Atiya Dior MD Main Office [address] [phone] 10/09/2020 11:56:00 10/09/2020 12:56:01 Spinal stenosis of lumbar region 31501438 M48.061 notes, labs and imaging from hospital admission reviewed. S/p surgery and doing well post op Keep up f/u with surgeon natasha removed Hypertensive disorder 38 619667 I10 BP goal < 150/90 continue olmesartan 40mg daily will add amlodipine 2.5 - 5mg daily - SE of medication discussed low salt diet and daily exercise recommende d Monitor BP at home and Return to care if elevated above 150/90 >50% of the time. Sinus tachycardia 587541 01 R00.0 EKG from hospital admission and labs reviewed suspect multifacto rial - pain, anxiety will check stress test but doubt cardiac as cause. 9070 Atiya Dior MD Main Office [address] [employer] [address] [place] [phone] 1 11/06/2020 11:47:01 11/06/2020 12:32:19 Hypertensive disorder 96842686 I10 BP goal < 150/90 continue olmesartan 40mg daily will add amlodipine 2.5 - 5mg daily - SE of medication discussed low salt diet and daily exercise recommende d Monitor BP at home and Return to care if elevated above 150/90 >50% of the time. Anxiety 36902875 F41.9 stable on current meds. will continue current care. Gastroesop hageal reflux disease without esophagitis 930613168 K21.9 doing well on PPI avoid dietary triggers weight loss advised [id number] KARINA HIGUERA Main Office [address] [employer] [employer] [address] [place] [phone] 1 03/08/2021 13:29:23 03/08/2021 14:30:48 Hypertensive disorder 83515802 I10 BP log reviewed - will stop amlodipine - has only been taking 1/2 of her 5 mg amlodipine pill daily BP goal < 150/90 low salt diet and daily exercise recommende d Monitor BP at home and Return to care if elevated above 150/90 >50% of the time. Anxiety 69803613 F41.9 doing well on celexa, will renew [id number] KARINA HIGUERA Main Office [address] [employer] [employer] [address] [place] [phone] 1 08/23/2021 12:28:27 08/23/2021 13:25:06 Seasonal allergic rhinitis 106296910 J30.2 medication - advised flonase and anti-hista mine, OTC cough syrup or honey supportive care otherwise suspect that dizziness may be coming from congestion related to allergies Hypertensive disorder 38 396819 I10 BP goal < 140/90 Currently at goal and doing well on meds with no SE. Will continue current care. Low salt diet and daily exercise encouraged Advised to monitor BP at home and to RTC if >140/90 > 50% of the time Hyperlipidemia 41458208 E78.5 will update fasting labs Fatigue 98156554 R53.83 will check thyroid labs Vitamin D deficiency 347 45275 E55.9 currently supplement ing vitamin d3 - will update labs Overactive urinary bladder 263358513 N32.81 pt reports trouble sleeping related to getting up to use the bathroom every 2 hours at night - will start oxybutynin ER 10 mg tablet 25021 Atiya Dior MD Main Office [facility] [employer] [address] [place] [phone] 1 02/22/2022 12:32:36 02/22/2022 13:23:59 Anxiety 51022653 F41.9 doing well on celexa, will renew Hypertensive disorder 38 912832 I10 BP goal < 140/90 Currently at goal and doing well on meds with no SE. Will continue current care. Low salt diet and daily exercise encouraged Advised to monitor BP at home and to RTC if >140/90 > 50% of the time Gastroesop hageal reflux disease without esophagitis [id number] K21.9 stable on PPI. avoid dietary triggers Iron defic iency anemia 09488244 D50.9 last H/H was 9.6she is taking iron dailywill recheck labsmay need colonoscop y - denies bleeding Impaired g lucose tolerance 0711051 R73.02 BS was 131 on last set of labswill check A1c Vertigo [id number] R42 prn use of meclizinew arning signs reviewed - ED if they present Menopausal and postmenopausal disorders 932632571 N95.9 Health Concerns Section Related Observation LastModified by Organization Detai ls LastModified Time None Recorded Concern Status LastModified by Organization Details LastModified Time None Recorded Advance Directives Directive Y: Payers Encounter Date Sequence Insurance Name Policy Number Policy [place] Covered Member ID [place] Member ID Guarantor Name 10/09/2020 1 MEDICARE B-[place]: COURTNEY Russ Nima [id number] Yahaira Nima 10/09/2020 3 [employer]: [employer] (MEDICARE SUPPLEMENT) [id number] [place] N[place] [id number] Yahaira Nima 11/06/2020 1 MEDICARE B-[place]: COURTNEY Russ Nima [id number] [place] N[place] 11/06/2020 3 [place]: [employer] (MEDICARE SUPPLEMENT) [id number] [place] N[place] [id number] [place] Nima 03/08/2021 1 MEDICARE B-[place]: COURTNEY Russ Nima [id number] 76 [place] Nima 03/08/2021 3 [employer]: [employer] (MEDICARE SUPPLEMENT) [id number] [place] Nima [id number] Yahaira Nima 08/23/2021 1 MEDICARE B-[place]: COURTNEY Russ Nima [id number] 76 Y[place]a Nima 08/23/2021 3 [employer]: [employer] (MEDICARE SUPPLEMENT) [id number] [place] Nima [id number] Yahaira Nima 02/22/2022 1 MEDICARE B-SC: COURTNEY Russ Nima [id number] 76 Yahaira Nima 02/22/2022 3 [employer]: [employer] (MEDICARE SUPPLEMENT) [id number] [place] Nima [id number] Yahaira Nima Notes Date Note Type Note Provider Name and Address Organization Details Recorded Time 10/09/2020 text/html Transitional Car e Management Reported by patient. Timing: date of discharge: 09/25/2020; date interactive contact was made: 09/29/2020 admitted from 09/21/20 - 09/25/20 for spinal stenosis surgery. however while she was admitted her HR was very high and so was her BP so she was kept in hospital longer. Facility: discharged to home [facility] Current Caregivers: self; family member Functional Status following recommended activity level; no difficulty following discharge instructions; taking medications as prescribed Follow Up primary care provider, date: (10/09/2020); another provider- specialist, date: (Dr Talley - 10/06/2020, seeing him again next month) Bp at home has been 140-160/80. HR 80s. Pain is better now. Atiya Dior MD [address] [facility] [address] [facility], [place], [phone], [facility], [place] 10/12/2020 10:55:40 11/06/2020 text/html Follow up, dl cedeno had recent surgery and is still healing from back surgery by Dr. Talley. Patient has been tachycardiac since surgery which has improved on its own. She says she is having trouble with pain in bilateral upper thighs with walking. She is only taking Tylenol for pain. she did not try propranolol. Atiya Dior MD [address] [facility] [address] [facility], [place], [address], [facility], [place] 11/10/2020 17:09:55 03/08/2021 text/html Here for f/u on blood pressure. Reports that even taking half of the 5 mg amlodipine tablet she is feeling too dizzy and fatigued. KARINA HIGUERA [address] [facility] [address] [facility], [place], [address], [facility], [place] 03/08/2021 19:35:15 08/23/2021 text/html Here to follow u p regarding blood pressure. She has brought her log with her today. BPs are averaging 120s/60s. Her heart rate is usually elevated in the 90s-100s. Has had some dizziness but reports she thinks its allergy related. Pt does have h/o vertigo. KARINA HIGUERA [address] [facility] [address] [facility], [place], [address], [facility], [place] 08/23/2021 13:48:40 02/22/2022 text/html She has been struggling with back pain since her surgery. She had shots done with Dr Mayes and it really helped but only for a week.Denies a h/o bleeding. she feels tired.[place] in the next few [place].She was here for a wellness exam but is moving shortly and needs medication refills.She is up often at night to urinate.She is dizzy sometimes when she wakes up in the am. Atiya Dior MD [address] [facility] [address] [facility], [place], [phone], [facility] [place] [facility] 02/25/2022 05:13:33 OBGyn Episode No OBEpisode recorded.
--- OUTSIDE RECORDS SUMMARY | 2024-07-26 11:03 | XMS_ITS | Clinical Summary ---
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 Name Role Phone Unavailable Primary Care Provider Unavailabl e Immunizations Name Administration Dates Next Due Influenza injectable quadrivalent preservative f ree 03/23/2023 Influenza, High Dose Seasonal, Preservative Free 02/09/2015 Influenza, IIV3, injectable 03/02/2014 Influenza, trivalent, adjuvanted 02/06/2017,01/20 Pneumococcal Conjugate PCV 13 02/09/2015 Pneumococcal Conjugate PCV 20 11/02/2022 Pneumococcal Polysaccharide PPSV23 09/17/2009 Tdap 02/07/2017 Social History Tobacco Use Types Packs/Day Years Used Date Smoking Tobacco: Never Assessed Comments Unknown Sex and Gender Information Value Date Recorded Sex Assigned at Female 03/23/2023 4:33 PM EDT Legal Sex Female 2:02 PM EDT Gender Identity Female 03/23/2023 4:33 PM EDT Sexual Orientation Don't know 03/23/2023 4: 33 PM EDT Plan of Treatment Health Maintenance Due Date Last Done Comments Depression Screening 1944 SDOH Screening 1944 Alcohol/Substance Use Screening 1956 Tobacco Screening 1956 Hepatitis C Screening 1962 Zoster Vaccines (1 of 2) 1994 RSV Patients and Patients Aged 60 years or older (1 - 1-dose 75+ series) 09/04/2019 COVID-19 Vaccine ( season) 2024 Influenza Vaccine (#1) 2024 , 02/06/2017, 02/08/2016, Additional history exists DTaP/Tdap/Td Vaccines (2 - Td or Tdap) 02/07/2027 02/07/2017 Pneumococcal Vaccine: 50+ Years Completed 11/02/2022, 02/09/2015, 09/17/2009 HIB Vaccines Aged Out No longer eligi ble based on patient's age to complete this topic HPV Vaccines Aged Out No longer eligi ble based on patient's age to complete this topic Hepatitis A Vaccines Aged Out No long er eligible based on patient's age to complete this topic Hepatitis B Vaccines Aged Out No long er eligible based on patient's age to complete this topic IPV Vaccines Aged Out No longer eligi ble based on patient's age to complete this topic Meningococcal Vaccine Aged Out No rachael shalom eligible based on patient's age to complete this topic RSV under 20 months Aged Out No longe r eligible based on patient's age to complete this topic Rotavirus Vaccines Aged Out No longer eligible based on patient's age to complete this topic Insurance [facility] MEDEX CARE MEDICARE
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
--- OUTSIDE RECORDS SUMMARY | 2024-07-26 11:03 | XMS_ITS | Patient Health Record ---
Author Organization [facility] [address] [facility] [place] [address] Care Team Providers Care Kennel Helper Name Role Phone Anne Lin Unavailable [phone] Allergies Allergen (clinical drug ingredient) Drug/Non Drug Allergy documented on EMR Reaction Allergy Type Onset Date Status acetaminophen / oxycodone Percocet nausea and vomiting Drug Allergy Active codeine Codeine nausea Drug Allergy Active Reason For Referral No Information Medications Medication SIG (Take, Route, Frequency, Duration) Notes Start Date End Date Status Olmesartan Medoxomil 40 MG 1 tablet Oral ly Once a day Active Atenolol Not-Taking hydroCHLOROthiazide Not-Taking Citrucel 500 MG 2 tablets with a full glass of water as needed Orally Six times a day Active Pantoprazole Sodium 20 MG 1 tablet 1/2 t o 1 hour before morning meal Orally Once a day Active Jardiance 10 MG 1 tablet Orally Once a day Active Citalopram & Diet Manage Prod Active Losartan Potassium N ot-Taking Gabapentin Unknown Social History Tobacco Use: Social History Observation [...] specify (0 point) Points 0 Interpretation Negative Problems Problem Type SNOMED Code ICD Code Onset Dates Problem Status W/U Status Risk Notes Problem Pain in limb (38043176) Pain in left toe(s) (M79.675) Active confirmed Encounters Encounter Location Date Provider Diagnosis [facility] [address] [place] [address] 07/24/2024 Anne Lin Plan Of Treatment Pending Test Test Name Order Date [id number] NAIL, 6 OR MORE 06/14/2012 [id number] NAIL, 1-5 02/25/2013 [id number] NAIL, 1-5 08/29/2012 [id number] NAIL, 1-5 11/28/2012 [id number] Plate 11/28/2012 [id number] Plate 02/25/2013 [id number]-Aebiuotn Plate 06/14/2012 [id number]-Igixubkh Plate 08/29/2012 Next Appt Details Provider Name:Anne msart, 08/13/2024 02:00:00 PM, [address] [facility], [place], [address], Insurance Providers Payer Name Payer Address Payer Phone Subscriber Number Group Number Insured Name Patient Relationship to Insured Coverage Start Date Coverage End Date Medicare National Govt Sv[employer] [address] [facility] [address] [id number] Yahaira Herring Self - patient is the insured 0 [employer] [address] [place] [address] [phone] [id number] Yahaira Herring Self - patient is the insured 0 Medical (General) History Medical History History ICD Code mumps measles high blood pressure chicken pox Pagets disease of bones arthritis Cataracts Menieres disease Reflux ( GERD) Sciatica Joint implants/screws Surgical History Surgery Date(Month/Year) nueroma left foot CABG surgery
--- OUTSIDE RECORDS SUMMARY | 2024-07-26 11:03 | XMS_ITS ---
Author Organization [facility] Address [address] [place] [address] Care Team Providers Care Permastone Installer Name Role Phone Anne Lin Unavailable [phone] REASON FOR VISIT same day cx Encounters Encounter Location Date Provider Diagnosis [facility] [address] [place] [address] 07/24/2024 Anne Lin Plan Of Treatment Next Appt Details Provider Name:Anne smart, 08/13/2024 02:00:00 PM, [address] [place], [address], Progress Notes * Yahaira JAINDOB: [birth year] (78 yo F)Acc No.[id number]:07/24/2024 Patient:?Yahaira JAIN :1945???Age:78 Y???Sex:Female Address:[address], [place] [address] * true * Date:? Generated for Evai sherin/Karon/eTransmitting on:?07/26/2024 11:02 AM EST
--- OUTSIDE RECORDS SUMMARY | 2024-07-26 11:04 | XMS_ITS ---
Author Organization [facility] Address [address] [facility] [place] [address] Care Team Providers Care Rv Repairer Name Role Phone Anne Lin Unavailable [phone] Allergies Allergen (clinical drug ingredient) Drug/Non Drug [...] Negative Encounters Encounter Location Date Provider Diagnosis [facility] [place] [address] [place] [address] 07/24/2024 Anne Lin Plan Of Treatment Next Appt Details Provider Name:Anne smart, 08/13/2024 02:00:00 PM, [address] [place], [address], Progress Notes * Yahaira JAINDOB: [birth year] (78 yo F)Acc No.[id number]:07/24/2024 Progress Notes Patient:?Yahaira JAIN Provider:?Anne Lin DPM :1945???Age:78 Y???Sex:Female D ate:07/24/2024 Address:[address] [place] [address], [facility] Subjective: * Chief Complaints: * ??? * ROS:?General/Constitutional:?Nausea?denies.?Vomiting?denies.?Hunger Thirst?denies.?Loss appetite?denies.?Chills?denies.?Fatigue?denies.?Fever?denies.?Night Sweats?denies.?Unexplained weight loss?denies.?Unexplained weight gain?denies.?HEENTM:?Dentures?denies.?Dizziness?denies.?Glasses/contacts?admits.?Retinopathy?de nies.?Blurred/double vision?denies.?TMJ?denies.?Discharge/drainage?denies.?Implants?denies.?Sore throat?denies.?Dental implants?admits.?Hard of hearing ?denies.?Difficulty chewing/swallowing/speaking?denies.?Nose bleeds?denies.?Sore mouth?denies.?Respiratory:?On Oxygen?denies.?Pneumonia/pleurisy?denies.?Bronchitis?denies.?Emphysema?denies.?C oughing?denies.?Cough blood?denies.?Shortness of breath?denies.?Wheezing?denies.?Cardiovascular:?Pacemaker?denies.?MVP?denies.?WPW?denies.?CHF?denies.?Heart attack?denies.?Septal defect?denies.?Rapid beat?denies.?Chest pain ?denies.?Atrial Fib.?denies.?Murmur/Palpitations?denies.?Gastrointestinal:?Hemorrhoids?denies.?Stomach/Abdominal pain?denies.?Dark blood stool?denies.?Irritable bowel ?admits.?Constipation?denies.?Diarrhea?denies.?Hematology:?Swelling?denies.?Clots?denies.?Varicose Veins?denies.?Bruising?denies.?Bleeding problem?denies.?Genitourinary:?Blood urine?denies.?Frequent/Painfu/urination/bladder control?denies.?Kidney stones?denies.?Infection (UTI)?denies.?Nephropathy?denies.?sex trans dis (STD)?denies.?Prostate?denies.?Musculoskeletal:?Hammertoes?denies.?Bunions?denies.?Back Pain?denies.?Muscle Cramps/ Resting?denies.?Muscle cramps / walking?denies.?Generalized aches and pains?denies.?Weakness?denies.?Integ.:?Adkins?denies.?Scars?denies.?Corns/calluses?denies.?Ingrown nails?denies.?Painful nails?denies.?Open Sores?denies.?Rashes?denies.?Neurologic:?Difficulty sleeping?denies.?Brain disorder?denies.?Numbness?denies.?Balance trouble?denies.?Confusion?denies.?Fainting/blackouts?denies.?Tingling?denies.?Tr emors?denies.? * Medical History:?Mumps, Petey les, High blood pressure, Chicken pox, Pagets disease of bones, Arthritis, Cataracts, Menieres disease, Reflux ( GERD), Sciatica, Joint implants/screws. * Surgical History:?nueroma le ft foot , CABG surgery . * Family History:?Mother: dece ased, diabetes, high blood pressure, diagnosed with Other malignant neoplasm of unspecified site, Diabetic - NIDDM, Unspecified essential hypertension.?Father: .?Maternal uncle: heart attack.? * Social History:?Tobacco Use:?Tobacco use other than smoking?Are you an other tobacco user??No ?Tobacco Control (Standard)?Tobacco use:?Nonsmoker ?Additional Findings: Tobacco non-user?Current nonsmoker ???Drugs/Alcohol:?Drugs?Have you used drugs other than those for medical reasons in the past 12 months??No ???Miscellaneous:?Caffeine: yes, frequency:, 1-2 cups per day. ?Children: yes. ?Marital status: . ?Occupation: Retired. ???Drug/Alcohol:?AUDIT-C (Standard)?Did you have a drink containing alcohol in the past year??Yes ?How often did you have a drink containing alcohol in the past year??Declined to specify (0 point) ?How many drinks did you have on a typical day when you were drinking in the past year??Declined to specify (0 point) ?How often did you have six or more drinks on one occasion in the past year??Declined to specify (0 point) ?Points?0 ?Interpretation?Negative * Medications:?Taking Citrucel 500 MG Tablet 2 tablets with [...] Not-Taking/PRN Losartan Potassium , Unknown Gabapentin * Allergies:?Codeine: nausea, Percocet: nausea and vomiting. Objective: * Vitals:? Assessment: Plan: * Treatment: * Images: * The named appointment provid er may or may not be the originator of this progress note, and it is not deemed complete until electronically signed by the appointment provider. Sign off status: Pending * Provider:?Anne Lin DPM Date:?09/2024 Generated for Jose Manuel duff/Karon/Maisha on:?07/26/2024 11:03 AM EST
--- OUTSIDE RECORDS SUMMARY | 2024-07-26 11:04 | XMS_ITS | Patient Health Record ---
Author Organization [facility] [facility] Address [address] [place] [address] Care Team Providers Care Supervisor Pipelines Name Role Phone Karyna Clarke Unavailable [phone] Reason For Referral No Information Medications Medication SIG (Take, Route, Frequency, Duration) Notes Start Date End Date Status hydroCHLOROthiazide 1 ORAL daily for -3 [facility] 09/24/2012 Active Citalopram Hydrobromide 20MG ORAL for -3 [facility] 4 Active CeleBREX 200MG ORAL for -3 [facility] 10/15/2013 Ac tive Vitamin E 200UNITS 1 ORAL daily for -3 [facility] 09/24/2012 Active Atenolol 25MG 1 ORAL DAILY for -3 [facility] 09/24/2012 Active Calcium 1 ORAL daily for -3 [facility] 09/24/2012 Active Vitamin D3 1000 IU ORAL daily for -3 [facility] 09/24/2012 Active [place] Jelly 1 ORAL daily for -3 [facility] 09/24/2012 Active Problems Problem Type SNOMED Code ICD Code Onset Dates Problem Status W/U Status Risk Notes Problem Menopausal symptom (96502278) Symptomatic menopausal or female climacteric states (627.2) Active confirmed Major Problem Gynecological examination normal (303242039925303) Routine gynecological examination (V72.31) Active confirmed Diag Problem Exercises teaching, guidance, and counseling (504152737) Exercise counseling (V65.41) Active confirmed Diag Problem Screening for malignant neoplasm of colon (458997071) Special screening for malignant neoplasms, colon (V76.51) Active confirmed Major Plan Of Treatment No Information Insurance Providers Payer Name Payer Address Payer Phone Subscriber Number Group Number Insured Name Patient Relationship to Insured Coverage Start Date Coverage End Date MEDICARE [address] [place], [place] [id number] [phone] [id number] SUSYSILVESTRENATALY Self - patient is the insured 1 [employer] [address] [place] [address] [phone] [id number] JOHN JAINETTA Self - patient is the insured 1
--- OUTSIDE RECORDS SUMMARY | 2024-07-26 11:04 | XMS_ITS | Data Portability ---
Author Organization [facility], [place] Address [address] [place] [address] Care Team Providers Care Distribution Technician Name Role Phone ADEEL KEN Primary Care Provider [phone] URBANO BUSH Primary Care Provider Assessment Encounter Date Assessment Date Assessment LastModified by Organization Details LastModified Time 11/24/2017 11/24/2017 Impression: 4 months history of right shoulder pain. Type III acromion radiographs. Possible rotator cuff tear. Plan: We discussed treatment options. She is not interested in MRI. I injected her right glenohumeral joint with 12 mg Celestone and 2 cc of lidocaine. She has an exercise band at home and will perform her exercises as instructed by her therapist. When necessary use of Aleve. Recheck in 3 weeks. If not better consider MRI. Some parts of this dictation were generated by voice recognition software and may contain typographical and/or grammatical inaccuracies. Not available 11/24/2017 09:55:38 Plan of Treatment Reminders Order Date Submit Date Provider Last Modified By Organization Details Last Modified Time Details Appointments None recorded. Lab None recorded. Referral pain management referral - [email or web address] U[facility] Bush MD, [address] , [place], [address], 8 13:16:27 Procedures None recorded. Surgeries None recorded. Imaging XR, shoulder 2017 018 [email or web address] 2 In-House Results, For Internal Use Only, Do Not Delete/merge, [id number] 13:08:25 MRI, lumbar spine, w/o contrast 2017 018 JEANNA In-House Results, For Internal Use Only, Do Not Delete/merge, [id number] 8 15:26:00 XR, lumbar spine 2017 018 [email or web address] In-House Results, For Internal Use Only, Do Not Delete/merge, [id number] 13:16:27 Medication Orders None recorded. Patient TargetsNo targets recorded. Patient Instructions Encounter Date Encounter Id Patient Instructions Last Modified By Organization Details Last Modified Time 09/06/2017 [id number] The patient will undergo an MRI of the lumbar spine without contrast in follow-up in the office. She will be referred to Dr. Cisneros for evaluation and treatment to include injections of the lumbar spine. [email or web address] Not available 09/06/2017 11:27:43 The patient titus donato 72 -year-old female who presents to office with primarily mechanical low back pain with intermittent symptoms down the right lower extremity. In the past she has undergone SI joint injections mostly on the right side. New x-rays were performed today in the office. The 4 view lumbar spine series does not show any evidence of scoliosis. She has mild disc space narrowing at throughout the lumbar spine. There is a grade 1 spondylolisthesis of L5 on S1 with reactive facet arthropathy distally. There is encroachment the intravertebral foramen by this arthritis the L4-5 and L5-S1 level. There is no evidence of metastatic lesions or compression deformities. There is mild calcification of the distal aorta. SI joints are sclerotic on the AP film but symmetrical. The patient is a pleasant 69 year old female who has lumbar spondylosis and grade 1 spondylolisthesis of L5 and S1 with reactive facet arthropathy. She presents the office with mechanical low back pain in this region as well as intermittent radicular symptoms which appear to be due to the foraminal narrowing/stenosis on the x-rays today. The patient is quite active with yoga. She has considered gastric surgery secondary to weight gain. Weight gain appears to be affecting her low back. She is just completing physical therapy for tendinitis of the shoulder. The patient will be referred to pain management in [facility] with Dr. Cisneros. She will need an MRI of the lumbar spine. She will undergo the MRI and follow-up with me. We will review the MRI and then I will provide her with a copy of the report and the imaging to take to Dr. Cisneros. Some parts of this dictation were generated by voice recognition software and may contain some typographical and/or grammatical inaccuracies. [email or web address] Not available 09/06/2017 11:30:07 09/19/2017 [id number] lumbar spinal stenosis: care instructions [email or web address] Not available 09/19/2017 14:22:20 The patient will be referred to Dr. Cisneros in [place] for evaluation and treatment options [email or web address] Not available 09/19/2017 14:09:43 An MRI of the magy mbar spine was reviewed today. There is no evidence of acute fractures. No evidence of metastatic disease. The patient has multilevel spondylosis of the lumbar spine with degenerative disc bulging as well as facet arthropathy which creates foraminal and central stenosis at multiple levels of the lumbar spine. She appears to have more degeneratiion from the L3 level to the S1 level. The spinal cord ends normally. The patient states she has a history of Paget's disease. She is unsure if the disease was bony in nature and where or how she was diagnosed. On the x-rays I am hard-pressed to see a severe case of Paget's disease. It was not reported by the radiologist as well. The patient is a very pleasant 72-year-old female with multilevel spondylosis off the lumbar spine with varying degrees of central and foraminal stenosis. The patient has mechanical right-sided low back pain without radicular symptoms today. The patient has been referred to Dr. Cisneros for evaluation and treatment for pain management options. She has appointment with Dr. Cisneros this week. Some parts of this dictation were generated by voice recognition software and may contain some typographical and/or grammatical inaccuracies. [email or web address] Not available 09/19/2017 14:21:55 11/24/2017 [id number] shoulder arthrit is: exercises [email or web address] Not available 11/24/2017 10:48:04 Reason for Referral Pain Management Referral for Lumbar spondylosis EVAL & TREAT Referring Physician: Nellie Templeton, [facility] Encounter Date: 09/06/2017 Results Created Date Observation Date Name Description Value Unit Range Abnormal Flag Note LastModifiedBy Organization Detail LastModifiedTime 09/08/19 18 09/07/2017 MRI, lumba r spine , w/o contr ast No observ ation record ed. [facility] [address] [facility] [address] [place], [address], 09/07/2017 16:40:42 Result Notes None recorded. Problems No Known Problems Procedures Surgical History Date Name Laterality Status Provider Name and Address Organization Details Recorded Time Tonsils completed Antoinette Jazmyn [place] [facility] 09/06/2017 11:01:22 Hysterectomy completed Antoinette Jazmyn [place] [facility] 09/06/2017 11:01:22 Gallbladder completed Antoinette Jazmyn [place] [facility] 09/06/2017 11:01:22 Breast completed [place]ette Jazmyn [place] [facility] 09/06/2017 11:01:22 Imaging Results Imaging Date Name Status LastModified by Organiz ation Details LastModified Time 09/07/2017 MRI, lumbar spine, w/o contrast completed [facility] [address] [facility] [address], [place], [address], 09/07/2017 16:40:42 Procedure Notes None recorded. Medical Equipment None Reported. Allergies Allergen ID Allergen Name Allergen Category Reaction Reaction Severity Criticality Documentation Date Start Date Code Code System Note Provider Name and Address Organization Details Recorded Time 52702 codeine medicatio n nausea severe Not available 09/06/2017 2670 RxNorm Antoinette Jazmyn null, [place] - [facility] 8 11:01:21 Medications Name Sig Start Date Stop Date Status Note LastModified by Organization Details LastModified Time terbinafine HCl 250 mg tablet 09/06 completed Not Available Not Available Not Available citalopram 20 mg tablet active Not Available Not Available Not Available amlodipine 5 mg-benazepril 20 mg capsule active Not Available Not Available N ot Available hydrochlorothiaz enid 25 mg tablet active Not Available Not Avail able Not Available losartan 100 mg tablet active Not Available Not Available Not Available amlodipine 5 mg-valsartan 160 mg tablet active Not Available Not Available No t Available Vitals Date Recorded Body height Body mass index (BMI) Body weight Provider Name and Address Organization Details Last Updated DateTime 09/06/2017 154.94 cm 35.9 kg/m2 01708.55 g Antoinette Eldridge [facility] 09/06/2017 11:01:04 Date Recorded Body height Body mass index (BMI) Body weight Provider Name and Address Organization Details Last Updated DateTime 09/19/2017 154.94 cm 35.9 kg/m2 73523.55 g Antoinette Eldridge [facility] 09/19/2017 14:08:51 Date Recorded Body height Body mass index (BMI) Body weight Provider Name and Address Organization Details Last Updated DateTime 11/24/2017 154.94 cm 36.5 kg/m2 33921.33 g Crys Pascual [facility] 11/24/2017 09:36:39 Social History Question Answer Notes LastModified by [facility] [place] Details LastModified Time Tobacco Smoking Status Former Smoker Antoinette Eldridge htierry [facility] 09/06/2017 11:01:21 What Is Your Level Of Alcohol Consumption? Occasional Information not available 09/06/2017 Are You Blind Or Do You Have Difficulty Seeing? No Information not available 09/06/2017 How Much Tobacco Do You Chew? None Information not available 09/06/2017 Are You Deaf Or Do You Have Serious Difficulty Hearing? No Information not available 09/06/2017 Which Of Your Hands Is Dominant? Right Information not available 09/06/2017 Live Alone Or With Others? Alone Information not available 09/06/2017 What Was The Date Of Your Most Recent Tobacco Screening? 11/24/2017 Information not available 12/13/2018 How Much Tobacco Do You Smoke? No Information not available 09/06/2017 What Types Of Sporting Activities Do You Participate In? Yoga, HI [email or web address] Information not available 11/24/2017 Sex: Unknown Functional Status Question Answer Note LastModified by [facility] [place] Details LastModified Time Do you have difficulty walking or climbing stairs? No Information not available 09/06/2017 Do you have difficulty doing errands alone? No Information not available 09/06/2017 Do you have difficulty dressing or bathing? No Information not available 09/06/2017 What is your exercise level? Occasional Information not available 09/06/2017 Mental Status Question Answer Note LastModified by Organization D etails LastModified Time Do you have difficulty concentrating, remembering or making decisions? No Information no t available 09/06/2017 Family History Nothing Reported. Medical History Condition Response Coronary Artery Disease N Other N Gout N High Blood Pressure Y Thyroid Disease N Osteoarthritis Y Scoliosis N Enlarged Prostate N Emphysema N Lyme Disease N Neurological N Depression N COPD N Heart Disease/Attack N Multiple Sclerosis N Vascular Disease N Congestive Heart Failure N Cholesterol N Stomach Ulcers N Diabetes N Bleeding Disorder N Gastric Reflux N Cancer N Asthma N Seizures N Hepatitis N Liver Disease N Rheumatoid Arthritis N Fibromyalgia N Kidney Disease N Gynecological HistoryNo gynecological history recorded. Obstetrics History GPAL:G 0 P 0 0 0 0 Past Encounters Encounter ID Performer Location Encounter Start Date Encounter Closed Date Diagnosis/Indication Diagnosis SNOMED-CT Code Diagnosis ICD10 Code Diagnosis Note [id number] [facility], [address] [address] 09/06/2017 10:17:30 09/06/2017 12:23:32 Low back pain 626617163 M54.5 Lumbar spondylosis 49472 0009 M47.896 [id number] Nellie Gray[facility] [address] [facility], [address] [address] 09/19/2017 13:59:27 09/19/2017 14:40:29 Spinal stenosis of lumbar region 87643862 M48.061 Lumbar spondylosis 52614 0009 M47.896 [id number] Luke Pedroza MD [facility] [address] [facility], [address] [address] 11/24/2017 09:23:16 11/24/2017 13:08:25 Shoulder joint pain 258505362 M25.511 Localized, primary osteoarthritis of the shoulder region 969333722 M19.011 Health Concerns Section Related Observation LastModified by Organization Detai ls LastModified Time None Recorded Concern Status LastModified by Organization Details LastModified Time None Recorded Advance Directives Directive None Recorded Payers Encounter Date Sequence Insurance Name Policy Number Policy [place] Covered Member ID [place] Member ID Guarantor Name 09/06/2017 2 [facility] [place] [id number] Yahaira Abebein [id number] Yahaira Nima 09/06/2017 1 [place] COURTNEY Russ Nima [id number] Satinder Abebein 09/19/2017 2 [facility] [id number] Yahaira Abebein [id number] Yahaira Abebein 09/19/2017 1 [place] Russ Nima [id number] Yahaira Abebein 11/24/2017 2 [facility] [id number] Yahaira Abebein [id number] Yahaira Nima 11/24/2017 1 [place] Russ Nima [id number] Satinder Herring Notes Date Note Type Note Provider Name and Address Organization Details Recorded Time 09/06/2017 text/html Lower BackReport ed bypatient.Location: right (occasionally radiates to the left side) Duration:date of onset: () Timing:chronic Context:fall (down steps 09/28/2008) Associated Symptoms:no numbness; no tingling;radiation down leg(right leg occasionally) Previous Surgery:none Prior Imaging:none Previous Injections:helped a little Previous PT:none The patient is a very pleasant 72-year-old female presents to the office as a new patient with a chief complaint of mechanical low back pain. The patient has seen specialist in the past for her low back pain. She does not have a new x-rays for review. There is no recent trauma. No fever chills or night sweats reported. She does provide me with old records from 2013 from a pain management center where she underwent a right SI joint injection(s) under fluoroscopy. She also reports occasional radiation pain down the right lower extremity. She has not had any physical therapy or previous surgery. There is no reported fever chills or night sweats. No report of weakness noted today. No bowel or bladder changes have been reported. The patient is currently in physical therapy but for right shoulder tendinitis Nellie merida [address] [place] [address]., [facility] [address] [place], [address], [facility] 09/06/2017 11:30:17 09/19/2017 text/html F/UReported bypatient.How are you feeling?same Previous PT:none Previous Injections:none (patient has appointment with pain management on 09/22/2017) Change in symptoms:no The patient is a very pleasant 72-year-old female who presents to the office for an MRI review of the lumbar spine. The patient has a history of chronic low back pain on the right side she is a subacute history of a fall in the remote past. The patient has been referred to pain management, Dr. Cisneros. Patient presents to the office for an MRI review. We will be providing her with her images as well as her reports to [facility]. Overall her medical condition is unchanged from her previous office visit. Nellie merida [address], [place], [address], [facility] 09/19/2017 14:22:03 11/24/2017 text/html Roxane is a 72-year-old right-hand dominant female comes in for right shoulder pain. She moved her area from [place] back in March. She first reported the pain in July although there may have been some that predated that. She also reports a fall about 9 years ago and had tendinitis in her shoulder. Her pain has gotten progressively worse. 14 sessions of physical therapy did not help. She did have an injection once again her cervical spine which did not help. She reports at times a 10 out of 10 pain. The pain is intermittent. She has difficulty donning and doffing close. Pain with internal rotation. She does take Aleve PM at nighttime. Luke Pedroza MD [address], [place], [address], [facility] 11/24/2017 11:27:02 OBGyn Episode No OBEpisode recorded.
== END 2024-07-26 11:46 | disposition home or self-care (01) ==
PROVIDERS: Visit Provider Neurological Surgery
DX: M48.061 Spinal stenosis, lumbar region without neurogenic claudication (principal); M51.369 Other intervertebral disc degeneration, lumbar region without mention of lumbar back pain or lower extremity pain; M43.16 Spondylolisthesis, lumbar region
CPT/HCPCS: 99204

== ENCOUNTER → 2024-07-26 10:43 | Outpatient (BNV) | payer MEDICARE, SELFPAY | PROVIDERS: Visit Provider Radiology Diagnostic Radiology | DX: M48.061 Spinal stenosis, lumbar region without neurogenic claudication (principal) | CPT/HCPCS: 72110 ==

== ENCOUNTER → 2024-08-07 13:19 | Outpatient (BNV) | payer MEDICARE, SELFPAY | PROVIDERS: Admitting Provider Neurological Surgery; PCP Internal Medicine; Visit Provider Internal Medicine Cardiovascular Disease | DX: R94.31 Abnormal electrocardiogram [ECG] [EKG] (principal); Z01.810 Encounter for preprocedural cardiovascular examination | CPT/HCPCS: 93010 ==

== ENCOUNTER 2024-08-13 07:45 | Inpatient (IN) | payer MEDICARE, SELFPAY ==
--- NOTE | 2024-08-07 | ECG_ITS ---
Test Reason : preop Blood Pressure : */* mmHG Vent. Rate : 100 BPM Atrial Rate : 100 BPM P-R Int : 162 ms QRS Dur : 86 ms QT Int : 364 ms P-R-T Axes : 69 56 35 degrees QTcB Int : 469 ms Normal sinus rhythm Possible Inferior infarct , age undetermined Abnormal ECG No previous ECGs available Referred By: Cassie Cano Electronically Signed By: Gabe Elizondo
[2024-08-07 12:38] VITALS: BP 140/65; PULSE 101; RESP 18; O2SAT 94; BMI 37.8
[2024-08-07 14:39] LABS: Hematocrit 34.9 % (37.0-47.0); Hemoglobin 10.5 g/dl (12.0-16.0); Mean Corpuscular HGB Conc 30.1 g/dl (31.0-35.0); Mean Corpuscular Hemoglobin 22.7 pg (27.0-33.0); Mean Corpuscular Volume 75.4 fL (80.0-98.0); Mean Platelet Volume 10.3 fL (9.4-12.3); Platelet Count 448 X10*3/uL (160-400); Red Blood Count 4.63 X10*6/uL (4.20-5.50); Red Cell Distribution Width 15.5 % (11.0-16.0); White Blood Count 8.5 X10*3/uL (4.8-10.8)
[2024-08-07 15:27] LABS: Anion Gap 11 (12-20); Blood Urea Nitrogen 21 mg/dL (9-16); Calcium 9.2 mg/dL (8.4-10.2); Carbon Dioxide 25 mmol/L (22-29); Chloride 109 mmol/L (96-108); Creatinine Clr Calc Pharmacy 59.9; Estimated Glomerular Filt Rate > 60; Glucose Random 85 mg/dL (60-115); Potassium 4.3 mmol/L (3.3-5.1); Sodium 141 mmol/L (135-145)
[2024-08-13] VITALS (9 sets, daily range): BP systolic 124–154; BP diastolic 51–79; PULSE 94–105; RESP 16–20; TEMP 36.1–37.1; O2SAT 90–99; BMI 37.9
--- NOTE | ~2024-08-13 | FL_ITS ---
EXAMINATION: FL GUIDANCE ONLY HISTORY: L4-L5 OLIF COMPARISON: Correlation is made with plain films of the lumbar spine dated 07/26/2024. TECHNIQUE: Fluoroscopy time: 1 minute, 14.5 seconds. Cumulative Dose: 80.327 mGy. DAP: 23.684 mGym2 Images: 7. FINDINGS: Images demonstrate placement of a disc prosthesis at L4-5. FL/FL guidance in OR IMPRESSION: Fluoroscopy during procedure. Please see procedure report for additional information. Electronically signed by: Dinh Siegel MD 08/13/2024 02:38 PM EDT
[2024-08-13] MEDS: methocarbamoL 750 MG TABLET PO (08:26)
[2024-08-13] MEDS: Gabapentin 300 MG CAPSULE PO (08:26)
[2024-08-13] MEDS: Lactated Ringers 1,000 ML 100 ML IVCONT (08:30)
[2024-08-13 08:41] LABS: Glucose, Whole Blood 147 mg/dL (60-115)
--- NOTE | 2024-08-13 09:53 | MHC.SHP ---
Pre-Procedural Eval Section A - 24 Hr Update-Section A only Date of Service: 08/13/24 The patient is an INPATIENT: Yes The patient has been examined within 24 hours of the surgical procedure. The History & Physical has been completed within 30 days and I have reviewed it.: No Section B - Complete if H&P > 30 days Chief Complaint: s/p L4-5 OLIF Details of Present Illness: Neurogenic claudication Allergies: Allergies Allergy/AdvReac Type Severity Reaction Status Date / Time codeine AdvReac Intermediate seizure Verified 08/13/24 07:51 oxycodone [From Percocet] AdvReac Intermediate Nausea and Verified 08/13/24 07:51 Vomiting Review of Systems Sugical H&P ROS: Negative: Constitution, Cardiovascular, Respiratory, Neurological, Psychiatric, Hem-Onc, Allergic/Immunologic, Gastrointestinal, Genitourinary, Musculoskeletal, Integumentary, Endocrine and Eyes/Ears/Nose/Throat Exam Surgical H&P Exam: Normal: HEENT, Normal: Heart, Normal: Lungs, Normal: Extremities, Normal: Abdomen, Normal: Skin and Normal: Neurological (Awake, alert) Plan Diagnosis/Plan: Unchanged I have reviewed the history and physical and performed a pertinent physical examination on my patient. No changes have occurred unless specified. Bblique lumbar interbody fusion; removal L5-S1 posterior instrumentation and reinsertion instrumentation at L4 and L5. Time Spent With Patient Time: Total time managing care of this patient today _5___ minutes.
--- NOTE | 2024-08-13 10:49 | PHA.MEDREC ---
Pharmacy Consult ? Medication Reconciliation Pharmacy has reviewed the medication reconciliation done by RN
--- NOTE | 2024-08-13 10:57 | P.CONAN_ITS ---
Documented by User: Cassie Cano NP 08/09/24 08:52 HPI - Anesthesia Eval Consult details Narrative: 78yo F for L4-5 Oblique Lumbar Interbody Fusion and Removal of posterior instrumentation, 08/13/24 No recent illness No CP/SOB with limited activity d/t pain Reports white coat syndrome and elevated BP's preop in the past. Instructed to monitor at home and bring log DOS GERD: prn ppi controls Anesthesia Pre-Procedure Meds Is the patient on any of the following meds?: SGLT2 Inhib PMFSH Active Problems Active Problems: All Active Problems Lumbar adjacent segment disease with spondylolisthesis (Acute) Spinal stenosis, lumbar region, without neurogenic claudication (Acute) Chronic pain syndrome (Acute) Chronic right sacroiliac joint pain (Acute) Sacroiliitis (Acute) Postlaminectomy syndrome of lumbar region (Acute) Ischial bursitis of right side (Acute) Allergies (Acute) Urticaria (Acute) Dyslipidemia (Acute) Type 2 diabetes mellitus without complication, without long-term current use of insulin (Acute) Hearing impairment (Acute) History of adenomatous polyp of colon (Acute) Essential hypertension (Acute) Anxiety and depression (Acute) GERD (gastroesophageal reflux disease) (Acute) Osteopenia (Acute) Obesity (BMI 30-39.9) (Acute) Lumbar back pain with radiculopathy affecting left lower extremity (Acute) Past Medical History Medical History (Updated 08/07/24 @ 12:24 by Nellie King, RN) IBS (irritable bowel syndrome) Allergies Urticaria Dyslipidemia Type 2 diabetes mellitus without complication, without long-term current use of insulin Hearing impairment History of adenomatous polyp of colon Lumbar back pain with radiculopathy affecting left lower extremity Obesity (BMI 30-39.9) Paget's disease of the bone Osteopenia GERD (gastroesophageal reflux disease) Impaired fasting glucose Anxiety and depression Essential hypertension Family History Family history of problems with anesthesia: No Surgical History Surgical History (Updated 08/07/24 @ 12:25 by Nellie King, RN) Hx of LASIK Hx of left cataract extraction Hx of tubal ligation H/O colonoscopy History of partial hysterectomy History of appendectomy History of cholecystectomy H/O breast surgery History of lumbar discectomy History of Problems with Anesthesia: No Social History Social History (Updated 06/03/24 @ 14:42 by Shimarlia Kwade, RMA) Housing: House Are you a primary healthcare administration internship to a significant other at home: No Do you presently have visiting nurse or other home services: No Alcohol intake: never Patient Tobacco Use Status: Former Tobacco user e-Cigarette/Vaping Use: Never Used Second Hand Smoke Exposure: Yes Use of substances other than those prescribed or required for medical reasons: No Have you been hit, kicked, punched, or otherwise hurt by someone within the past year? If so, by whom?: No Are you DNR?: No Advance Directives: No Advance Directives Information Provided: No Recently lost weight without trying: No Eating poorly because of decreased appetite: No Nutrition Risks: No Nutritional Risk Patient : No : No Poor oral hygiene: Yes (implants upper both sides.) service: No Current occupational status: retired Cognitive needs: No Hearing needs: No Vision needs: Yes (Reading glasses) Meds Allergies Allergy/AdvReac Type Severity Reaction Status Date / Time codeine AdvReac Intermediate seizure Verified 08/13/24 07:51 oxycodone [From Percocet] AdvReac Intermediate Nausea and Verified 08/13/24 07:51 Vomiting Home Medications ?Medication ?Instructions ?Recorded ?Confirmed ?Last Taken ?Type alpha lipoic acid 100 mg capsule 100 mg PO DAILY 11/02/22 08/13/24 08/09/24 History ascorbate calcium (vitamin C) 500 500 mg PO DAILY 11/02/22 08/13/24 08/09/24 History mg tablet calcium citrate 630 mg PO QPM 11/02/22 08/13/24 08/09/24 History cholecalciferol (vitamin D3) 25 25 mcg PO QPM 11/02/22 08/13/24 08/09/24 History mcg (1,000 unit) capsule multivitamin 1 tab PO DAILY 11/02/22 08/13/24 08/09/24 History methylcellulose (laxative) 500 mg 500 mg PO DAILY 08/07/24 08/13/24 08/09/24 History tablet (Citrucel) pantoprazole 20 mg tablet,delayed 20 mg PO DAILY PRN Acid Reflux 08/07/24 08/13/24 08/13/24 History release Exam Height,Weight and Vital Signs: Height 5 ft 1 in Weight 90.718 kg Last Vital Signs Pulse 101 H 08/07/24 12:38 Resp 18 08/07/24 12:38 BP 140/65 H 08/07/24 12:38 Pulse Ox 94 08/07/24 12:38 O2 Del Method Room Air 08/07/24 12:38 Pertinent Lab Results Pertinent Lab Results: Laboratory Tests 08/07/24 13:42 WBC 8.5 Hgb 10.5 L Hct 34.9 L Plt Count 448 H D Sodium 141 Potassium 4.3 Chloride 109 H Carbon Dioxide 25 BUN 21 H Creatinine 0.78 Laboratory Tests 05/23/24 10:29 Hemoglobin A1c % 6.7 H Narrative Narrative: EKG 07/2024 Vent. Rate : 100 BPM Atrial Rate : 100 BPM P-R Int : 162 ms QRS Dur : 86 ms QT Int : 364 ms P-R-T Axes : 69 56 35 degrees QTcB Int : 469 ms Normal sinus rhythm Possible Inferior infarct , age undetermined Abnormal ECG No previous ECGs available Airway TM Dist: >3cm Neck ROM: Limited Loose/Missing/Broken Teeth: No (implants side teeth) Heart: tachy, rr Lungs: CTAB Assessment and Plan Assessment Anesthesia Assessment: Anesthesia Plan Discussed and PAT Visit Final Anesthetic Review Family History of Problems with Anesthesia: No History of Problems with Anesthesia: No Documented by User: Thuy Wei DO 08/13/24 10:58 HPI - Anesthesia Eval Anesthesia Pre-Procedure Meds Is the patient on any of the following meds?: SGLT2 Inhib PMFSH Past Medical History Medical History (Updated 08/07/24 @ 12:24 by Nellie King RN) IBS (irritable bowel syndrome) Allergies Urticaria Dyslipidemia Type 2 diabetes mellitus without complication, without long-term current use of insulin Hearing impairment History of adenomatous polyp of colon Lumbar back pain with radiculopathy affecting left lower extremity Obesity (BMI 30-39.9) Paget's disease of the bone Osteopenia GERD (gastroesophageal reflux disease) Impaired fasting glucose Anxiety and depression Essential hypertension Family History Family history of problems with anesthesia: No Surgical History Surgical History (Updated 08/07/24 @ 12:25 by Nellie King RN) Hx of LASIK Hx of left cataract extraction Hx of tubal ligation H/O colonoscopy History of partial hysterectomy History of appendectomy History of cholecystectomy H/O breast surgery History of lumbar discectomy History of Problems with Anesthesia: No Social History Social History (Updated 06/03/24 @ 14:42 by JOSH Keys) Housing: House Are you a primary healthcare administration internship to a significant other at home: No Do you presently have visiting nurse or other home services: No Alcohol intake: never Patient Tobacco Use Status: Former Tobacco user e-Cigarette/Vaping Use: Never Used Second Hand Smoke Exposure: Yes Use of substances other than those prescribed or required for medical reasons: No Have you been hit, kicked, punched, or otherwise hurt by someone within the past year? If so, by whom?: No Are you DNR?: No Advance Directives: No Advance Directives Information Provided: No Recently lost weight without trying: No Eating poorly because of decreased appetite: No Nutrition Risks: No Nutritional Risk Patient : No : No Poor oral hygiene: Yes (implants upper both sides.) service: No Current occupational status: retired Cognitive needs: No Hearing needs: No Vision needs: Yes (Reading glasses) Meds Allergies Allergy/AdvReac Type Severity Reaction Status Date / Time codeine AdvReac Intermediate seizure Verified 08/13/24 07:51 oxycodone [From Percocet] AdvReac Intermediate Nausea and Verified 08/13/24 07:51 Vomiting Home Medications ?Medication ?Instructions ?Recorded ?Confirmed ?Last Taken ?Type alpha lipoic acid 100 mg capsule 100 mg PO DAILY 11/02/22 08/13/24 08/09/24 History ascorbate calcium (vitamin C) 500 500 mg PO DAILY 11/02/22 08/13/24 08/09/24 History mg tablet calcium citrate 630 mg PO QPM 11/02/22 08/13/24 08/09/24 History cholecalciferol (vitamin D3) 25 25 mcg PO QPM 11/02/22 08/13/24 08/09/24 History mcg (1,000 unit) capsule multivitamin 1 tab PO DAILY 11/02/22 08/13/24 08/09/24 History methylcellulose (laxative) 500 mg 500 mg PO DAILY 03/08/13/24 08/09/24 History tablet (Citrucel) pantoprazole 20 mg tablet,delayed 20 mg PO DAILY PRN Acid Reflux 08/07/24 08/13/24 08/13/24 History release Exam Exam Date and Time: 08/13/24 1055 Height,Weight and Vital Signs: Height 5 ft 1 in Weight 90.718 kg Last Vital Signs Pulse 101 H 08/07/24 12:38 Resp 18 08/07/24 12:38 BP 140/65 H 08/07/24 12:38 Pulse Ox 94 08/07/24 12:38 O2 Del Method Room Air 08/07/24 12:38 Vital Signs Pulse Rate 101 H 08/07/24 12:38 Respiratory Rate 18 08/07/24 12:38 Blood Pressure 140/65 H 08/07/24 12:38 Pulse Oximetry 94 08/07/24 12:38 Oxygen Delivery Method Room Air 08/07/24 12:38 Temperature 98.7 F 08/13/24 08:03 Pulse Rate 95 08/13/24 08:03 Respiratory Rate 20 08/13/24 08:03 Blood Pressure 154/79 H 08/13/24 08:03 Pulse Oximetry 97 08/13/24 08:03 Oxygen Delivery Method Room Air 08/13/24 08:03 Airway Mallampati Class: II TM Dist: >3cm Neck ROM: Limited Loose/Missing/Broken Teeth: No (patient denies any loose or broken teeth) Heart: S1S2 Assessment and Plan Assessment Anesthesia Assessment: Anesthesia Plan Discussed and Chart Reviewed Final Anesthetic Review Family History of Problems with Anesthesia: No History of Problems with Anesthesia: No NPO: Yes ASA Class: III Final Preanesthetic Review: No Changes in Pt Med Stat, Meds/Allgs Chart Reviewed, Consent Obtained/Reviewed and Anes Risks/Benef Reviewed Patient Risk: Intermediate Procedure Risk: Intermediate Anesthetic Plan Anesthetic Plan: GA and Agree w/ Assess. and Plan Disposition: Standard PACU
--- NOTE | 2024-08-13 13:22 | P.OP_ITS ---
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 I have explained the nature, purpose and benefits of the operation. I have discussed the risks and benefit of the operation including possible complications or adverse events with patient/family. Alternative(s) were discussed with the patient with their relative benefits and risks as well as the consequences of not accepting the operation were included in obtaining consent. Surgeon: DAPHNEY FLORES MD, PHD Procedure Assisted By: niesha Carlos Description of Procedure This patient had a previous L5-S1 fusion done in [place]. She presented with adjacent degenerative disc disease, spondylolisthesis and neurogenic claudication. She was offered a minimally invasive correction of her spondylolisthesis with indirect decompression of the nervous structures through an oblique lumbar interbody fusion L4-5. In addition, we will remove the previous L5-S1 instrumentation and reinsert instrumentation at L4-5. The procedure and complications were explained. The patient was consented. The patient was brought to the operating room and endotracheally intubated. The patient was turned in a lateral position with the left side up. Prep and drape was done followed by timeout. A small incision was made in the left lower abdominal quadrant. The muscle fascia was opened after which the 3 muscle layer was split to enter the retroperitoneal space. Dilators were docked in the anterior one third of the L4-5 disc space followed by a retractor. The retractor was opened. The L4-5 disc space was exposed. An annulotomy was done after which an elevator Beyer was used to release the disc material from its endplates and to perforate the contralateral side. A partial discectomy was done. An 8 mm and 10 mm height trial implant was inserted. The discectomy was completed. The endplates were prepared. An 10 x 45 mm with 6 degree lordosis 4 web cage filled with allograft was inserted into the disc space under fluoroscopic guidance. This resulted in correction of the spondylolisthesis. The retractor was removed. Hemostasis was done. The incision was closed in 2 layers. Steri-Strips used to approximate incision. An OpSite with Tegaderm was used to cover the incision. This marked first part of the procedure. The patient was turned prone on the [place] spine table. 2C arms were installed for fluoroscopy. Prep and drape was done followed by a second timeout. Two paramedian incisions were made lateral from the L4 and L5 pedicles. The muscle fascia was opened after which the muscle layer was split bluntly to expose the posterolateral gutter. The following steps were taken. A pediguard tap was used to create a transpedicular trajectory into the vertebral body. A K wire was placed. A specially designed instrument was advanced over the K wire to dec orticate the posterolateral gutter in preparation for the posterolateral fusion. A pedicle screw was advanced over the K wire and the K wire was removed. The steps were done for the bilateral L4 pedicles right L5 pedicle. Then attention was turned to removal of the L5-S1 instrumentation. The left-sided paramedian incision was extended slightly caudally to expose the previous L5 and S1 instrumentation. The locking caps, rods and eventually screws were removed. Then bilateral L4 screws were inserted with a diameter of 6.5 x 45 mm and bilateral L5 screws with a diameter of 7.5 x 45 mm. Pedicle screws were connected with 40 mm galina bilaterally and locked down with locking caps. The extension towers were removed. The posterolateral gutter was filled with allograft to complete the posterolateral L4-5 fusion Hemostasis was done and the incision was closed in 2 layers. Steri-Strips were used to approximate the incision. An OpSite with tegaderm was used to cover the incision. All sponge and needle counts were correct. Patient was extubated and transferred in stable is to recovery room. Anesthesia: General Estimated Blood Loss (ml): 50 mL Duration of Surgery: 2 hours Complications: None Postoperative Plan: Admit to inpatient for clinical observation
[2024-08-13] MEDS: 0.9 % Sodium Chloride 1,000 ML 75 ML IVCONT (15:11)
[2024-08-13 16:27] LABS: Glucose, Whole Blood 153 mg/dL (60-115)
[2024-08-13] MEDS: Insulin Lispro 100 UNIT/ML 3 ML VIAL SUBCUT ×2 (16:47→21:38)
[2024-08-13] MEDS: ceFAZolin Sodium/Dextrose,Iso 2 GM/50 ML PIGGYBACK IV (18:13)
[2024-08-13] MEDS: Acetaminophen 1,000 MG/100 ML PIGGYBACK 400 MG IV (19:24)
[2024-08-13] MEDS: Calcium Oyster Shell Elemental 500 MG TABLET PO (20:15)
[2024-08-13] MEDS: Cholecalciferol (Vitamin D3) 25 MCG TABLET PO (20:15)
[2024-08-13] MEDS: Docusate Sodium 100 MG CAPSULE PO (20:15)
[2024-08-14] MEDS: ceFAZolin Sodium/Dextrose,Iso 2 GM/50 ML PIGGYBACK IV ×2 (00:25→05:56)
[2024-08-14] MEDS: Acetaminophen 1,000 MG/100 ML PIGGYBACK 400 MG IV ×2 (01:32→06:55)
[2024-08-14 03:22] VITALS: BP 129/61; PULSE 93; RESP 16; TEMP 36.6; O2SAT 95
[2024-08-14 04:49] LABS: Glucose, Whole Blood 162 mg/dL (60-115)
[2024-08-14] MEDS: Omeprazole 20 MG CAPSULE.DR PO (05:56)
[2024-08-14] MEDS: 0.9 % Sodium Chloride 1,000 ML 75 ML IVCONT (05:57)
--- NOTE | 2024-08-14 07:06 | HO.NEUROPN_ITS ---
Neurosurgery Operative Note Date of Service: 08/14/24 Narrative: POD: 1 Procedure: L4-5 OLIF Yahaira is a pleasant 78 year old female who underwent L4-[address] Barr. She is currently admitted to [facility]. She was seen lying in bed this morning. Patient reports she is up walking around is with assistance and is otherwise doing well. She feels her right foot feels much better than it did prior to surgery. She has had almost no pain and has not been using her narcotic prescriptions. She is voiding well, tolerating diet. Afebrile, vital signs stable. She has about 4/5 strength with right dorsiflexion & EHL, notably better than her baseline antigravity in clinic preoperatively. Her right sided plantar flexion is 5/5. Her left sided dorsiflexion/plantar flexion EHL is 5/5. Back and anterolateral dressings have some staining without signs of hematoma. No active sanguineous drainage. Area is dry. Plan: Patient meets criteria to be medically discharged home. She was seen at bedside with Dr. Barr. She has a son-in-law who will be providing her with PT at home. I will send in a short supply of oxycodone for her to take in case she has exacerbations of her pain. Dakotah Barr MD,PhD [facility]
[2024-08-14 07:50] VITALS: BP 134/64; PULSE 95; RESP 12; TEMP 36.5; O2SAT 93
[2024-08-14 07:57] LABS: Glucose, Whole Blood 123 mg/dL (60-115)
--- NOTE | 2024-08-14 08:14 | PM.DS ---
DS: Providers Provider Date of Service: 08/14/24 Date of admission: 08/13/24 07:45 Date of discharge: 08/14/24 Primary care physician: Sharron Roque MD DS: Summary Time Attestation Discharge Coordination Time (in mins): 12 Quality: Safe Use of Opioids Does Pt have an Active Cancer Diagnosis on the Problem List?: No Quality: Stroke Does the patient have a stroke diagnosis?: No Physical Exam Vital Signs: Vital Signs: Last Vital Signs Temp 97.7 F 08/14/24 07:50 Pulse 95 08/14/24 07:50 Resp 12 08/14/24 07:50 BP 134/64 08/14/24 07:50 Pulse Ox 93 08/14/24 07:50 O2 Del Method Room Air 08/14/24 07:50 O2 Flow Rate 2 08/14/24 03:22 BMI result Body Mass Index 37.9 DS: Data Data Completed and Pending Labs on day of discharge: Laboratory Results - last 24 hr 08/13/24 08/13/24 08/13/24 08:28 16:16 20:10 POC Glucose 147 H 153 H 162 H 08/14/24 07:50 POC Glucose 123 H Discharge Plan Discharge Anticipated Discharge Date/Time: 08/14/24 08:18 Patient Disposition: Home, Self-Care Discharge Diagnosis: s/p L4-5 OLIF Referrals: Sharron Roque MD [Primary Care Provider] - 1 Week Discharge Medications: New oxycodone 5 mg tablet 5 mg PO Q4H PRN (Reason: pain) Qty: 20 0RF Rx Instructions: Partial Fill upon patient request. Continued olmesartan 40 mg tablet 40 mg PO DAILY Qty: 90 1RF Jardiance 10 mg tablet 10 mg PO DAILY Qty: 30 0RF Citrucel 500 mg Tablet 500 mg PO DAILY pantoprazole 20 mg tablet,delayed release (DR/EC) 20 mg PO DAILY PRN (Reason: Acid Reflux) citalopram 20 mg tablet 20 mg PO DAILY Qty: 90 2RF alpha lipoic acid 100 mg capsule 100 mg PO DAILY calcium citrate 250 mg calcium tablet 630 mg PO QPM cholecalciferol (vitamin D3) 25 mcg (1,000 unit) capsule 25 mcg PO QPM multivitamin Tablet 1 tab PO DAILY ascorbate calcium (vitamin C) 500 mg tablet 500 mg PO DAILY Discharge Orders: Discharge Order (Routine); Ordered 08/14/24 Ordered By: Dakotah Tran Diet: Advance to usual diet Activity on Discharge: As tolerated Stand Alone Forms: Patient Portal Discharge page Print Language: Ugandan Care Plan Goals: Return to normal activity as tolerated Health Concerns: None Plan of Treatment: Follow-up in clinic in 2-3 weeks Assessment: POD: 1 Procedure: L4-5 OLIF Yahaira is a pleasant 78 year old female who underwent L4-[address] Barr. She is currently admitted to [facility]. She was seen lying in bed this morning. Patient reports she is up walking around is with assistance and is otherwise doing well. She feels her right foot feels much better than it did prior to surgery. She has had almost no pain and has not been using her narcotic prescriptions. She is voiding well, tolerating diet. Afebrile, vital signs stable. She has about 4/5 strength with right dorsiflexion & EHL, notably better than her baseline antigravity in clinic preoperatively. Her right sided plantar flexion is 5/5. Her left sided dorsiflexion/plantar flexion EHL is 5/5. Back and anterolateral dressings have some staining without signs of hematoma. No active sanguineous drainage. Area is dry. Plan: Patient meets criteria to be medically discharged home. She was seen at bedside with Dr. Barr. She has a son-in-law who will be providing her with PT at home. I will send in a short supply of oxycodone for her to take in case she has exacerbations of her pain. Dakotah Barr MD,PhD [facility]
[2024-08-14] MEDS: Docusate Sodium 100 MG CAPSULE PO (08:24)
[2024-08-14] MEDS: Escitalopram Oxalate 10 MG TABLET PO (08:24)
[2024-08-14] MEDS: Multivitamin TABLET 1 TAB PO (08:24)
[2024-08-14] MEDS: Ascorbic Acid 500 MG TABLET PO (08:24)
[2024-08-14] MEDS: Valsartan 160 MG TABLET PO (08:24)
[2024-08-14] MEDS: calcium polycarbophiL TABLET 1 TAB PO (08:24)
--- NOTE | 2024-08-14 11:16 | PC.NURSE ---
Dressings to lower back changed per pt request.
--- NOTE | 2024-08-14 12:00 | HO.POSTANES ---
Post Anesthesia Evaluation Post Anesthesia Evaluation Date of Service: 08/14/24 Vital Signs: Vital Signs Temp Pulse Resp BP Pulse Ox O2 Del Method O2 Flow Rate 08/14/24 07:50 97.7 F 95 12 134/64 93 Room Air 08/14/24 03:22 97.8 F 93 16 129/61 95 Nasal Cannula 2 Anesthesia: General Endotracheal-GETA Mental Status: Awake Pain Control: Satisfactory Nausea/Vomiting: None Hydration: Adequate Anesthesia-Related Issues: No Anes. Related Issues
--- NOTE | 2024-08-14 13:33 | MHC.CM.PN ---
IMM DELIVERED PT LIVES ALONE AND USES [facility] FOR MOBILITY. NO SERVICES. +HCP ON FILE AND VERIFIED. PCP RUTH CID DP: P.T. [facility] HOME SERVICES BUT PT HAS DECLINED HER SON IS A PHYSICAL THERAPIST. PA AWARE. PT'S FAMILY WILL TRANSPORT HOME.
== END 2024-08-14 11:16 | disposition home or self-care (01) | DRG 451 ==
LOC: HO.SSSA 10:43 → HO.S3 14:00
PROVIDERS: Neurological Surgery; Nurse Practitioner; Admitting Provider Physician Assistant; PCP Internal Medicine; Visit Provider Physician Assistant
PROC: 0SG00A0 Fusion of Lumbar Vertebral Joint with Interbody Fusion Device, Anterior Approach, Anterior Column, Open Approach (ICD-10-PCS; principal; 2024-08-13 10:40)
DX: M43.16 Spondylolisthesis, lumbar region (principal); M48.061 Spinal stenosis, lumbar region without neurogenic claudication; Z87.891 Personal history of nicotine dependence; Z79.899 Other long term (current) drug therapy
CPT/HCPCS: 36415; 80048; 82947; 85027; 86850; 86900; 86901; 93005; 97162; C1713; C1889; J0131; J0665; J0666; J0690; J1100; J1171; J2003; J2405; J2704; J3010; L8699

== ENCOUNTER → 2024-08-13 07:45 | Outpatient (BNV) | payer MEDICARE, SELFPAY | PROVIDERS: Admitting Provider Physician Assistant; PCP Internal Medicine; Visit Provider Neurological Surgery | DX: M48.062 Spinal stenosis, lumbar region with neurogenic claudication (principal); M43.16 Spondylolisthesis, lumbar region | CPT/HCPCS: 20930; 22558; 22612; 22840; 22853; 99024; 99499 ==

== ENCOUNTER 2024-08-29 13:56 | Outpatient (AMB) | payer MEDICARE, SELFPAY ==
--- NOTE | 2024-08-29 13:15 | HO.SPINEOV ---
Intake Visit Reasons: consultation for Home PT Intake Note: Ms. Herring is here for a consultation for Home Physical Therapy. 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 She recently underwent L4-5 OLIF on 08/14/24. She reports that Physical Therapy here at the hospital recommended at home PT, but she declined at the time. Since then she has struggled to mobilize at home, and states that she feels home PT would be very beneficial for her. To recap pre-operatively she presented to clinic with foot drop on the right side and bilateral proximal leg weakness in addition to a complete numbness of her right foot. She feels her right foot is still fairly weak and she has trouble bearing weight on it, but much of her overall pain has subsided. Right foot drop remains with about 3/5 strength. Plantar flexion is 4/5 on the right. No new neurological deficits. The patients ambulates with assistance. Her posterior and anterolateral incision sites are closed and well healing. I removed the steri-strips overlying the incisions at this visit. I would like to follow up with Yahaira again in 6 weeks for her 2nd postop visit. We will get X-rays at her next visit. Dakotah Barr MD,PhD [facility] Orders: Orders XR lumbar spine 4V min Today M43.16 - Spondylolisthesis, lumbar region, M51.369 - Other intervertebral disc degeneration, lumbar region without mention of lumbar back pain or lower extremity pain Coding Level of Care Code Global (73111) Diagnoses Lumbar adjacent segment disease with spondylolisthesis M51.369; M43.16
--- OUTSIDE RECORDS SUMMARY | 2024-08-29 16:48 | XMS_ITS | Patient Health Record ---
Author Organization [facility] Physician Yoseph es Billing Info Address [address] [place] [address] [place] [address] Support Name Relationship Address Phone Tricia Real Emergency Contact [address] [place] [address] Yahaira Herring Guarantor Unknown Allergies Allergen [...] Problem Status W/U Status Risk Notes Problem 056456553015986 Spondylolisthesi s, lumbar region (M43.16) Active confirmed Problem 163354996 Radiculopathy, lumbar region (M54.16) Active confirmed Problem 86229102 Spinal stenosis, 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) Active confirmed Problem 570641870 Lumbar radiculopathy (M54.16) Active confirmed Problem 976292245 Lumbar spondylos is (M47.816) Active confirmed Problem 323787128 Lumbar radiculopathy, chronic (M54.16) Active confirmed Problem 000010604 Spondylolisthesi s, unspecified spinal region (M43.10) Active confirmed Problem 21262540 Hypertension, unspecified type (I10) Active confirmed Problem 773183701 Gastroesophageal reflux disease, unspecified whether esophagitis present (K21.9) Active confirmed Plan Of Treatment Future Test Test Name Order Date MRI-LUMBAR SPINE; W/O CONTRAST MATL (721 48) 08/18/2020 XRAY- SPINE LUMBAR AP AND LAT/SPOT (7210 0)([facility] 11/12/2020 CT- LUMBAR SPINE W/O CONTRAST (36364)([facility] 01/12/2021 XRAY- SPINE LUMBAR AP AND LAT/SPOT (7210 0)([facility] 03/16/2021 CT- [facility]UMBAR SPINE W/O CONTRAST (60665[facility] 07/13/2021 Insurance Providers Payer Name Payer Address Payer Phone Subscriber Number Group Number Insured Name Patient Relationship to Insured Coverage Start Date Coverage End Date MEDICARE [place] PART B [address] [facility] [place] [id number] Yahaira Herring Self - patient is the insured [facility] PPO [address] [place], [place] [phone] [id number] Yahaira Herring Self - patient is the insured Medical (General) History Medical History History ICD Code Lumbar radiculopathy Hypertension, unspecified type I10 Gastroesophageal reflux disease, unspeci fied whether esophagitis present K21.9 Spondylolisthesis, unspecified spinal re gion M43.10 Surgical History Surgery Date(Month/Year) hysterectomy gall bladder surgery appendectomy breast surgery Hospitalization History Reason Date(Month/Year) See Above
--- OUTSIDE RECORDS SUMMARY | 2024-08-29 16:48 | XMS_ITS | Patient Health Record ---
[facility] Address [address] [place] [address] Care Team Providers Care Weight Recorder Name Role Phone Anne Lin Unavailable [phone] Allergies Allergen (clinical drug ingredient) Drug/Non Drug [...] Status Risk Notes Problem Pain in limb (91388635) Pain in left toe(s) (M79.675) Active confirmed Encounters Encounter Location Date [facility] [address] [place] [address] [facility] [address] [place] [address] 07/31/2024 Anne Lin Plan Of Treatment Pending Test Test Name Order Date [id number]-KACYUPE NAIL, 6 OR MORE 06/14/2012 [id number]-[id number] NAIL, 1-5 02/25/2013 15942-CLYMECE NAIL, 1-5 08/29/2012 11116-LVCOFBM NAIL, 1-5 11/28/2012 88741-Efocerqn Plate 11/28/2012 80402-Fzvgyfep Plate 02/25/2013 39797-Lyzogxle Plate 06/14/2012 13283-Uioacpjr Plate 08/29/2012 Insurance Providers Payer Name Payer Address Payer Phone Subscriber Number Group Number Insured Name Patient Relationship to Insured Coverage Start Date Coverage End Date Medicare National [employer] [address] [place] [address] [id number] Yahaira Herring Self - patient is the insured 0 [employer] [address] [place] [address] [phone] [id number] Yahaira Herring Self - patient is the insured 0 Medical (General) History Medical History History ICD Code mumps measles high blood pressure chicken pox Pagets disease of bones arthritis Cataracts Menieres disease Reflux ( GERD) Sciatica Joint implants/screws Surgical History Surgery Date(Month/Year) nueroma left foot CABG surgery
--- OUTSIDE RECORDS SUMMARY | 2024-08-29 16:49 | XMS_ITS ---
Author Organization [facility] Address [address] [place] [address] Care Team Providers Care Jig Hand Name Role Phone Anne Lin Unavailable [phone] REASON FOR VISIT cx appt 08/13/24 Encounters Encounter Location Date Provider Diagnosis [facility] [address] [place] [address] 07/31/2024 Anne Lin Plan Of Treatment No Information Progress Notes * SUSY, YahairaDOB: [birth year] (78 yo F)Acc No.[id number]:07/31/2024 Patient:?Yahaira JAIN :1945???Age:78 Y???Sex:Female Address:[address] [place] [address] * true * Date:? Generated for Evai sherin/Karon/eTransmitting on:?08/29/2024 04:49 PM EDT
--- OUTSIDE RECORDS SUMMARY | 2024-08-29 16:49 | XMS_ITS | Data Portability ---
Author Organization [place] [facility] [place], Main Office Address [address] [place] [address] [place] [id number] Care Team Providers Care Instructor Apparel Manufacture Name Role Phone ATIYA LIM Primary Care Provider [phone] JALEEL ORELLANA Orthopedist ALBERTA JOYA Pain Management ARNIE BUSTAMANTE OTHER Assessment No assessment recorded. Plan of Treatment Reminders Order Date Submit Date Provider Last Modified By Organization Details Last Modified Time Details Appointments None recorded. Lab CMP, serum or plasma 2021 [facility] ([facility]), [address], [place], [address], 09:24:20 HbA1c (hemoglob in A1c), blood 2021 [facility] ([facility]), [address], [place], [address], 09:24:23 iron + total iron-bind ing capacity (TIBC), serum 2021 [facility] ([facility]), [address], [place], [address], 09:24:21 ferritin, serum or plasma 2021 [facility] ([facility]), [address], [place], [address], 09:24:22 CBC w/ auto diff 2021 [facility]), [address], [place], [address], 09:24:19 vitamin D, 25-hydrox y + 1,25-dihy droxy, serum 2021 [facility] ([place]), [address] [place], [address], 14:36:53 lipid panel, serum 2021 [facility] ([place]), [address] [place], [address], 14:36:53 CMP, serum or plasma 2021 [facility] ([place]), [address] [place], [address], 14:36:52 CBC w/ auto diff 2021 [facility] ([place]), [address] [place], [address], 14:36:52 TSH + free T4, serum 2021 [facility] ([place] [address] [place], [address], 14:36:51 Referral None recorded. Procedures None recorded. Surgeries None recorded. Imaging DEXA, axial skeleton + vertebral fracture assessmen t 2021 [facility] ([facility]), [address], [place], [address], 18:24:36 NM, myocardia l perfusion scan, w/ stress - Please do Mariluz Scan only, NO TREADMILL 2020 6 [facility] ([facility]), [address], [place], [address], 12:04:59 Medication Orders olmesarta n 40 mg tablet 2021 [email or web address], [facility], [place], [address], 13:34:24 citalopra m 20 mg tablet 2021 [facility], [facility], [place], [address], 13:12:11 meclizine 25 mg tablet 2021 [facility], [facility], [place], [address], 13:12:10 pantopraz ole 40 mg tablet,de layed release 2021 [facility], [facility], [place], [address], 13:12:13 oxybutyni n chloride ER 10 mg tablet,ex tended release 24 hr 2021 [id number], [address], [place], [address], 13:10:36 olmesarta n 40 mg tablet 2020 [email or web address] [facility], [facility], [place], [address], 19:28:07 citalopra m 20 mg tablet 2020 021 [facility], [place], [address], 14:27:53 amlodipin e 5 mg tablet [email or web address] [facility] [address] [facility] [place], [address], 13:03:53 olmesarta n 40 mg tablet 2020 021 [email or web address] [place], [address], 17:07:39 pantopraz ole 40 mg tablet,de layed release 2020 021 [facility], [place], [address], 12:28:29 citalopra m 20 mg tablet 2020 021 [facility], [place], [address], 12:28:27 amlodipin e 5 mg tablet 2020 021 [email or web address] [id number], [address], [address], 13:03:53 Patient TargetsNo targets recorded. Patient Instructions Encounter Date Encounter Id Patient Instructions Last Modified By Organization Details Last Modified Time 02/22/[id number] mammogram pending for 03/2022 [facility] Not available 02/22/2022 13:11:39 Reason for Referral None Reported. Results Created Date Observation Date Name Description Value Unit Range Abnormal Flag Note LastModifiedBy Organization Detail LastModifiedTime 11/30/1911/30/2021 TSH+F REE T4 TSH 1.670 uIU/m L 0.450- 4.500 Not Available [facility] ([facility]) [address] [place], [address], 11/30/2021 14:36:51 11/30/19 22 11/30/2021 TSH+F REE T4 T4,free(dire ct) 0.96 NG/dL 0.82-1 .77 Not Available [facility] ([facility]) [address] [place], [address], 11/30/2021 14:36:51 11/30/19 22 11/29/2021 CBC WITH DIFFE RENTI AL/PL ATELE T WBC 6.3 x10e3 /uL 3.4-10 .8 Not Available [facility] ([facility]) [address] [place], [address], 11/30/2021 14:36:52 11/30/19 22 11/29/2021 CBC WITH DIFFE RENTI AL/PL ATELE T RBC 4.50 x10e6 /uL 3.77-5 .28 Not Available [facility] ([facility]) [address] [place], [address], 11/30/2021 14:36:52 11/30/19 22 11/29/2021 CBC WITH DIFFE RENTI AL/PL ATELE T hemoglobin 9.6 g/dL 11.1-1 5.9 below low normal Not Available [facility] ([facility]) [address] [place], [address], 11/30/2021 14:36:52 11/30/19 22 11/29/2021 CBC WITH DIFFE RENTI AL/PL ATELE T hematocrit 32.1 % 34.0-4 6.6 below low normal Not Available [facility] ([facility]) [address] [place], [address], 11/30/2021 14:36:52 11/30/19 22 11/29/2021 CBC WITH DIFFE RENTI AL/PL ATELE T MCV 71 fL 79-97 below low normal Not Available [facility] ([facility]) [address] [place], [address], 11/30/2021 14:36:52 11/30/19 22 11/29/2021 CBC WITH DIFFE RENTI AL/PL ATELE T MCH 21.3 pg 26.6-3 3.0 below low normal Not Available [facility] ([facility]) [address] [place], [address], 11/30/2021 14:36:52 11/30/19 22 11/29/2021 CBC WITH DIFFE RENTI AL/PL ATELE T MCHC 29.9 g/dL 31.5-3 5.7 below low normal Not Available [facility] ([facility]) [address] [place], [address], 11/30/2021 14:36:52 11/30/19 22 11/29/2021 CBC WITH DIFFE RENTI AL/PL ATELE T RDW 15.5 % 11.7-1 5.4 above high normal Not Available [facility] ([facility]) [address] [place], [address], 11/30/2021 14:36:52 11/30/19 22 11/29/2021 CBC WITH DIFFE RENTI AL/PL ATELE T platelets 443 x10e3 /uL 150-45 0 Not Available [facility] ([facility]) [address] [place], [address], 11/30/2021 14:36:52 11/30/19 22 11/29/2021 CBC WITH DIFFE RENTI AL/PL ATELE T neutrophils 60 % not estab. Not Available [facility] ([facility]) [address] [place], [address], 11/30/2021 14:36:52 11/30/19 22 11/29/2021 CBC WITH DIFFE RENTI AL/PL ATELE T lymphs 27 % not estab. Not Available [facility] ([facility]) [address] [place], [address], 11/30/2021 14:36:52 11/30/19 22 11/29/2021 CBC WITH DIFFE RENTI AL/PL ATELE T monocytes 10 % not estab. Not Available [facility] ([facility]) [address] [facility], [place], [address], 11/30/2021 14:36:52 11/30/19 22 11/29/2021 CBC WITH DIFFE RENTI AL/PL ATELE T eos 2 % not estab. Not Available [facility] ([facility]) [address] [facility], [place], [address], 11/30/2021 14:36:52 11/30/19 22 11/29/2021 CBC WITH DIFFE RENTI AL/PL ATELE T basos 1 % not estab. Not Available [facility] ([facility]) [address] [place], [address], 11/30/2021 14:36:52 11/30/19 22 11/29/2021 CBC WITH DIFFE RENTI AL/PL ATELE T immature cells MANAGEMENT TRAINEE PROGRAM STORES Not Available [facility] ([facility]) [address] [place], [address], 11/30/2021 14:36:52 11/30/19 22 11/29/2021 CBC WITH DIFFE RENTI AL/PL ATELE T neutrophils (absolute) 3.7 x10e3 /uL 1.4-7. 0 Not Available [facility] ([facility]) [address] [place], [address], 11/30/2021 14:36:52 11/30/19 22 11/29/2021 CBC WITH DIFFE RENTI AL/PL ATELE T lymphs (absolute) 1.7 x10e3 /uL 0.7-3. 1 Not Available [facility] ([facility]) [address] [facility], [place], [address], 11/30/2021 14:36:52 11/30/19 22 11/29/2021 CBC WITH DIFFE RENTI AL/PL ATELE T monocytes(ab solute) 0.6 x10e3 /uL 0.1-0. 9 Not Available [facility] ([facility]) [address] [facility], [place], [address], 11/30/2021 14:36:52 11/30/19 22 11/29/2021 CBC WITH DIFFE RENTI AL/PL ATELE T eos (absolute) 0.2 x10e3 /uL 0.0-0. 4 Not Available [facility] ([facility]) [address] [facility], [place], [address], 11/30/2021 14:36:52 11/30/19 22 11/29/2021 CBC WITH DIFFE RENTI AL/PL ATELE T baso (absolute) 0.1 x10e3 /uL 0.0-0. 2 Not Available [facility] ([facility]) [address] [facility], [place], [address], 11/30/2021 14:36:52 11/30/19 22 11/29/2021 CBC WITH DIFFE RENTI AL/PL ATELE T immature granulocytes 0 % not estab. Not Available [facility] ([facility]) [address] [place], [address], 11/30/2021 14:36:52 11/30/19 22 11/29/2021 CBC WITH DIFFE RENTI AL/PL ATELE T immature grans (abs) 0.0 x10e3 /uL 0.0-0. 1 Not Available [facility] ([facility]) [address] [facility], [place], [address], 11/30/2021 14:36:52 11/30/19 22 11/29/2021 CBC WITH DIFFE RENTI AL/PL ATELE T NRBC MANAGEMENT TRAINEE PROGRAM STORES Not Available [facility] ([facility]) [address] [facility], [place], [address], 11/30/2021 14:36:52 11/30/19 22 11/29/2021 CBC WITH DIFFE RENTI AL/PL ATELE T hematology comments: MANAGEMENT TRAINEE PROGRAM STORES Not Available [facility] ([facility]) [address] [facility], [place], [address], 11/30/2021 14:36:52 11/30/19 22 11/29/2021 COMP. METAB OLIC PANEL (14) glucose 131 mg/dL 65-99 above high normal Not Available [facility] ([facility]) [address] [facility], [place], [address], 11/30/2021 14:36:52 11/30/19 22 11/29/2021 COMP. METAB OLIC PANEL (14) BUN 14 mg/dL 8-27 Not Available [facility] ([facility]) [address] [place], [address], 11/30/2021 14:36:52 11/30/19 22 11/29/2021 COMP. METAB OLIC PANEL (14) creatinine 0.99 mg/dL 0.57-1 .00 Not Available [facility] ([facility]) [address] [facility], [place], [address], 11/30/2021 14:36:52 11/30/19 22 11/29/2021 COMP. METAB OLIC PANEL (14) eGFR 59 mL/mi n/1.7 3 >59 below low normal Not Available [facility] ([facility]) [address] [place], [address], 11/30/2021 14:36:52 11/30/19 22 11/29/2021 COMP. METAB OLIC PANEL (14) BUN/creatini ne ratio 14 12-28 Not Available [facility] ([facility]) [address] [facility] [place], [address], 11/30/2021 14:36:52 11/30/19 22 11/29/2021 COMP. METAB OLIC PANEL (14) sodium 139 mmol/ L 134-14 4 Not Available [facility] ([facility]) [address] [place], [address], 11/30/2021 14:36:52 11/30/19 22 11/29/2021 COMP. METAB OLIC PANEL (14) potassium 5.0 mmol/ L 3.5-5. 2 Not Available [facility] ([facility]) [address] [place], [address], 11/30/2021 14:36:52 11/30/19 22 11/29/2021 COMP. METAB OLIC PANEL (14) chloride 102 mmol/ L 96-106 Not Available [facility] ([facility]) [address] [facility] [place], [address], 11/30/2021 14:36:52 11/30/19 22 11/29/2021 COMP. METAB OLIC PANEL (14) carbon dioxide, total 23 mmol/ L 20-29 Not Available [facility] ([facility]) [address] [facility] [place], [address], 11/30/2021 14:36:52 11/30/19 22 11/29/2021 COMP. METAB OLIC PANEL (14) calcium 9.2 mg/dL 8.7-10 .3 Not Available [facility] ([facility]) [address] [facility] [place], [address], 11/30/2021 14:36:52 11/30/19 22 11/29/2021 COMP. METAB OLIC PANEL (14) protein, total 6.9 g/dL 6.0-8. 5 Not Available [facility] ([facility]) [address] [facility] [place], [address], 11/30/2021 14:36:52 11/30/19 22 11/29/2021 COMP. METAB OLIC PANEL (14) albumin 4.3 g/dL 3.7-4. 7 Not Available [facility] ([facility]) [address] [facility], [place], [address], 11/30/2021 14:36:52 11/30/19 22 11/29/2021 COMP. METAB OLIC PANEL (14) globulin, total 2.6 g/dL 1.5-4. 5 Not Available [facility] ([facility]) [address] [facility], [place], [address], 11/30/2021 14:36:52 11/30/19 22 11/29/2021 COMP. METAB OLIC PANEL (14) A/G ratio 1.7 1.2-2. 2 Not Available [facility] ([facility]) [address] [facility], [place], [address], 11/30/2021 14:36:52 11/30/19 22 11/29/2021 COMP. METAB OLIC PANEL (14) bilirubin, total 0.2 mg/dL 0.0-1. 2 Not Available [facility] ([facility]) [address] [facility], [place], [address], 11/30/2021 14:36:52 11/30/19 22 11/29/2021 COMP. METAB OLIC PANEL (14) alkaline phosphatase 76 IU/L 44-121 Not Available [facility] ([facility]) [address] [facility], [place], [address], 11/30/2021 14:36:52 11/30/19 22 11/29/2021 COMP. METAB OLIC PANEL (14) AST (SGOT) 13 IU/L 0-40 Not Available [facility] ([facility]) [address] [facility], [place], [address], 11/30/2021 14:36:52 11/30/19 22 11/29/2021 COMP. METAB OLIC PANEL (14) ALT (SGPT) 15 IU/L 0-32 Not Available [facility] ([facility]) [address] [facility] [place], [address], 11/30/2021 14:36:52 11/30/19 22 11/29/2021 LIPID PANEL cholesterol, total 181 mg/dL 100-19 9 Not Available [facility] ([facility]) [address] [facility] [place], [address], 11/30/2021 14:36:53 11/30/19 22 11/29/2021 LIPID PANEL triglyceride s 194 mg/dL 0-149 above high normal Not Available [facility] ([facility]) [address] [facility] [place], [address], 11/30/2021 14:36:53 11/30/19 22 11/29/2021 LIPID PANEL HDL cholesterol 48 mg/dL >39 Not Available [facility] ([facility]) [address] [facility] [place], [address], 11/30/2021 14:36:53 11/30/19 22 11/29/2021 LIPID PANEL VLDL cholesterol jamison 33 mg/dL 5-40 Not Available [facility] ([facility]) [address] [facility] [place], [address], 11/30/2021 14:36:53 11/30/19 22 11/29/2021 LIPID PANEL LDL chol calc ([facility]) 100 mg/dL 0-99 above high normal Not Available [facility] ([facility]) [address] [facility] [place], [address], 11/30/2021 14:36:53 11/30/19 22 11/29/2021 LIPID PANEL comment: MANAGEMENT TRAINEE PROGRAM STORES Not Available [facility] ([facility]) [address] [facility] [place], [address], 11/30/2021 14:36:53 11/30/19 22 11/30/2021 VITAM IN D, 1,25 + 25-HY DROXY calcitriol(1 ,25 di-oh vit D) 50.6 pg/mL 24.8-8 1.5 Ple ase note refer ence inter sara meyer e Not Available [facility] ([facility]) [address] [facility], [place], [address], 11/30/2021 14:36:53 11/30/19 22 11/30/2021 VITAM IN [...] um and D. Monica rich [place]: [facility] [employer] . 2. Fransisco whitley [place], Jhon hameed [place], Anup off-F errar i [employer], et al. Evalu ation , treat ment, and preve ntion of vitam in D defic iency : an Endoc rine Socie ty clini jamison pract ice guide line. JCEM. 2010; 96(7) :1911 -30. Not Available [facility] ([facility]) [address] [facility], [place], [address], 11/30/2021 14:36:53 02/23/20 22 02/23/2022 CBC WITH PLATE LET AND DIFFE RENTI AL WBC 7.9 K/uL 3.8-11 .5 Not Available [facility]) [address] [facility] [address], [place], [address], 02/23/2022 09:24:18 02/23/20 22 02/23/2022 CBC WITH PLATE LET AND DIFFE RENTI AL red blood cell count (RBC) 4.67 M/mm3 3.60-5 .30 Not Available [facility] ([facility]) [address] [place] [address] [address], [place], [address], 02/23/2022 09:24:18 02/23/20 22 02/23/2022 CBC WITH PLATE LET AND DIFFE RENTI AL hemoglobin (HGB) 13.1 gm/dL 11.5-1 5.5 Not Available [facility] ([facility]) [address] [place] [address] [address], [place], [address], 02/23/2022 09:24:18 02/23/20 22 02/23/2022 CBC WITH PLATE LET AND DIFFE RENTI AL hematocrit (HCT) 39.1 % 35.2-4 6.4 Not Available [facility] ([facility]) [address] [place] [address] [address], [place], [address], 02/23/2022 09:24:18 02/23/20 22 02/23/2022 CBC WITH PLATE LET AND DIFFE RENTI AL MCV 83.7 fL 79.0-9 9.0 Not Available [facility] ([facility]) [address] [place] [address] [address], [place], [address], 02/23/2022 09:24:18 02/23/20 22 02/23/2022 CBC WITH PLATE LET AND DIFFE RENTI AL MCH 28.1 pg 26.9-3 5.0 Not Available [facility]) [address] [place] [address] [address], [place], [address], 02/23/2022 09:24:18 02/23/20 22 02/23/2022 CBC WITH PLATE LET AND DIFFE RENTI AL MCHC 33.5 g/dL 30.4-3 4.8 Not Available [facility] ([facility]) [facility] [address], [place], [address], 02/23/2022 09:24:18 02/23/20 22 02/23/2022 CBC WITH PLATE LET AND DIFFE RENTI AL RDW NM fL 38.6-5 3.8 Unabl e to repor t RDW due to dimor phic red cell popul ation Not Available [facility] ([facility]) [facility] [address], [place], [address], 02/23/2022 09:24:18 02/23/20 22 02/23/2022 CBC WITH PLATE LET AND DIFFE RENTI AL platelet count 332 K/cum m 137-39 7 Not Available [facility] ([facility]) [address] [place] [address] [address], [place], [address], 02/23/2022 09:24:18 02/23/20 22 02/23/2022 MANUA L DIFFE RENTI AL REVIE W/COU NT absolute immature granulocyte manual 0.00 K/uL 0.00-0 .03 Not Available [facility] ([facility]) [facility] [address], [place], [address], 02/23/2022 09:24:20 02/23/20 22 02/23/2022 MANUA L DIFFE RENTI AL REVIE W/COU NT absolute basophil count manual 0.1 K/uL 0.0-0. 1 Not Available [facility] ([facility]) [address] [place] [address] [address], [place], [address], 02/23/2022 09:24:20 02/23/20 22 02/23/2022 MANUA L DIFFE RENTI AL REVIE W/COU NT absolute eosinophil count manual 0.2 K/uL 0.0-0. 6 Not Available [facility] ([facility]) [address] [facility] [address], [place], [address], 02/23/2022 09:24:20 02/23/20 22 02/23/2022 MANUA L DIFFE RENTI AL REVIE W/COU NT absolute monocyte count manual 0.8 K/uL 0.3-1. 0 Not Available [facility] ([facility]) [address] [place] [address] [address], [place], [address], 02/23/2022 09:24:20 02/23/20 22 02/23/2022 MANUA L DIFFE RENTI AL REVIE W/COU NT absolute lymphocyte count manual 3.0 K/uL 0.9-3. 6 Not Available [facility] ([facility]) [facility] [address], [place], [address], 02/23/2022 09:24:20 02/23/20 22 02/23/2022 MANUA L DIFFE RENTI AL REVIE W/COU NT absolute neutrophil count manual 3.9 K/uL 2.0-8. 2 Not Available [facility] ([facility]) [address] [place] [address] [address], [place], [address], 02/23/2022 09:24:20 02/23/20 22 02/23/2022 MANUA L DIFFE RENTI AL REVIE W/COU NT microcytosis SLIGHT Not Available [facility] ([facility]) [address] [place] [address] [address], [place], [address], 02/23/2022 09:24:20 02/23/20 22 02/23/2022 MANUA L DIFFE RENTI AL REVIE W/COU NT anisocytosis MODERA TE Not Available [facility] ([facility]) [address] [place] [address] [address], [place], [address], 02/23/2022 09:24:20 02/23/20 22 02/23/2022 MANUA L DIFFE RENTI AL REVIE W/COU NT poikilocytos is SLIGHT Not Available [facility]) [address] [place] [address] [address], [place], [address], 02/23/2022 09:24:20 02/23/20 22 02/23/2022 MANUA L DIFFE RENTI AL REVIE W/COU NT fragmented cells FEW Not Available [facility] ([facility]) [address] [place] [address] [address], [place], [address], 02/23/2022 09:24:20 02/23/20 22 02/23/2022 MANUA L DIFFE RENTI AL REVIE W/COU NT ovalocytes FEW Not Available [facility] [address] [place] [address] [address], [place], [address], 02/23/2022 09:24:20 02/23/20 22 02/23/2022 MANUA L DIFFE RENTI AL REVIE W/COU NT platelet slide review NORMAL Plate let clump s noted . True plate let count may be highe r than repor esvin. Not Available [facility] [address] [place] [address] [address], [place], [address], 02/23/2022 09:24:20 02/23/20 22 02/23/2022 MANUA L DIFFE RENTI AL REVIE W/COU NT neutrophils- manual 49 % 41-77 Not Available [facility]) [address] [place] [address] Dr [address], [place], [address], 02/23/2022 09:24:20 02/23/20 22 02/23/2022 MANUA L DIFFE RENTI AL REVIE W/COU NT lymphocytes manual 30 % 14-48 Not Available [facility] ([facility]) [address] [place] [address] [address], [place], [address], 02/23/2022 09:24:20 02/23/20 22 02/23/2022 MANUA L DIFFE RENTI AL REVIE W/COU NT monocytes manual 10 % 4-13 Not Available [facility] ([facility]) [address] [place] [address] [address], [place], [address], 02/23/2022 09:24:20 02/23/20 22 02/23/2022 MANUA L DIFFE RENTI AL REVIE W/COU NT eosinophils manual 2 % 0-8 Not Available [facility] ([facility]) [address] [place] [address] Dr Carter, [place], [address], 02/23/2022 09:24:20 02/23/20 22 02/23/2022 MANUA L DIFFE RENTI AL REVIE W/COU NT basophils manual 1 % 0-1 Not Available [facility] ([facility]) [address] [place] [address] Dr Carter, [place], [address], 02/23/2022 09:24:20 02/23/20 22 02/23/2022 MANUA L DIFFE RENTI AL REVIE W/COU NT atypical lymphocytes 8 % 0-12 Not Available [facility] ([facility]) [address] [place] [address] Dr Carter, [place], [address], 02/23/2022 09:24:20 02/23/20 22 02/23/2022 COMPR EHENS DARYN METAB OLIC PANEL (CMP) sodium 141 mEq/L 135-14 5 Not Available [facility] ([facility]) [address] [place] [address] Dr Carter, [place], [address], 02/23/2022 09:24:20 02/23/20 22 02/23/2022 COMPR EHENS DARYN METAB OLIC PANEL (CMP) potassium 4.3 mEq/L 3.5-5. 3 Not Available [facility] ([facility]) [address] [place] [address] Dr Carter, [place], [address], 02/23/2022 09:24:20 02/23/20 22 02/23/2022 COMPR EHENS DARYN METAB OLIC PANEL (CMP) chloride 104 mEq/L 97-108 Not Available [facility] ([facility]) [address] [place] [address] Dr Carter, [place], [address], 02/23/2022 09:24:20 02/23/20 22 02/23/2022 COMPR EHENS DARYN METAB OLIC PANEL (CMP) CO2 25 mEq/L 22-32 Not Available [facility] [address] [place] [address] Dr Carter, [place], [address], 02/23/2022 09:24:20 02/23/20 22 02/23/2022 COMPR EHENS DARYN METAB OLIC PANEL (CMP) glucose 94 mg/dL 65-99 Not Available [facility] ([facility]) [address] [place] [address] Dr Carter, [place], [address], 02/23/2022 09:24:20 02/23/20 22 02/23/2022 COMPR EHENS DARYN METAB OLIC PANEL (CMP) BUN 19 mg/dL 8-23 Not Available [facility] ([facility]) [address] [place] [address] Dr Carter, [place], [address], 02/23/2022 09:24:20 02/23/20 22 02/23/2022 COMPR EHENS DARYN METAB OLIC PANEL (CMP) creatinine 0.84 mg/dL 0.50-1 .00 Not Available [facility] ([facility]) [address] [place] [address] Dr Carter, [place], [address], 02/23/2022 09:24:20 02/23/20 22 02/23/2022 COMPR EHENS DARYN METAB OLIC PANEL (CMP) calcium 9.5 mg/dL 8.6-10 .4 Not Available [facility] ([facility]) [address] [place] [address] Dr Carter, [place], [address], 02/23/2022 09:24:20 02/23/20 22 02/23/2022 COMPR EHENS DARYN METAB OLIC PANEL (CMP) protein 6.8 g/dL 6.0-8. 3 Not Available [facility] ([facility]) [address] [place] [address] Dr Carter, [place], [address], 02/23/2022 09:24:20 02/23/20 22 02/23/2022 COMPR EHENS DARYN METAB OLIC PANEL (CMP) albumin 4.2 g/dL 3.5-5. 3 Not Available [facility] ([facility]) [address] [place] [address] Dr Carter, [place], [address], 02/23/2022 09:24:20 02/23/20 22 02/23/2022 COMPR EHENS DARYN METAB OLIC PANEL (CMP) alkaline phosphatase 64 IU/L 35-121 Not Available [facility] ([facility]) [address] [place] [address] Dr Carter, [place], [address], 02/23/2022 09:24:20 02/23/20 22 02/23/2022 COMPR EHENS DARYN METAB OLIC PANEL (CMP) ALT (SGPT) 21 IU/L <5-47 Not Available [facility] ([facility]) [address] [place] [address] Dr Carter, [place], [address], 02/23/2022 09:24:20 02/23/20 22 02/23/2022 COMPR EHENS DARYN METAB OLIC PANEL (CMP) AST (SGOT) 15 IU/L <5-40 Not Available [facility] ([facility]) [address] [place] [address] Dr Carter, [place], [address], 02/23/2022 09:24:20 02/23/20 22 02/23/2022 COMPR EHENS DARYN METAB OLIC PANEL (CMP) bilirubin, total 0.2 mg/dL <0.2-1 .2 Not Available [facility] ([facility]) [address] [place] [address] Dr Carter, [place], [address], 02/23/2022 09:24:20 02/23/20 22 02/23/2022 COMPR EHENS DARYN METAB OLIC PANEL (CMP) A/G ratio 1.6 mg/dL 1.1-2. 5 Not Available [facility] [address] [place] [address] Dr Carter, [place], [address], 02/23/2022 09:24:20 02/23/20 22 02/23/2022 COMPR EHENS DARYN METAB OLIC PANEL (CMP) estimated GFR (black) 77 mL/mi n/1.7 3m2 >59 Not Available [facility] [address] [place] [address] Dr Carter, [place], [address], 02/23/2022 09:24:20 02/23/20 22 02/23/2022 COMPR EHENS [...] muscl e mass or diet. Not Available [facility] ([facility]) [address] [place] [address] Dr Carter, [place], [address], 02/23/2022 09:24:20 02/23/20 22 02/23/2022 PERCE NT SATUR ATION WITH IRON AND IBC iron 80 ug/dL 37-145 Not Available [facility] ([facility]) [address] [place] [address] Dr Carter, [place], [address], 02/23/2022 09:24:21 02/23/20 22 02/23/2022 PERCE NT SATUR ATION WITH IRON AND IBC iron binding cap 386 ug/dL 250-45 0 Not Available [facility] ([facility]) [address] [place] [address] Dr Carter, [place], [address], 02/23/2022 09:24:21 02/23/20 22 02/23/2022 PERCE NT SATUR ATION WITH IRON AND IBC percent saturation 21 % 15-50 Not Available [facility] ([facility]) [address] [place] [address] Dr Carter, [place], [address], 02/23/2022 09:24:21 02/23/20 22 02/23/2022 BELEM TIN ferritin 36.5 NG/mL 13.0-3 01.0 Not Available [facility] [address] [place] [address] Dr Carter, [place], [address], 02/23/2022 09:24:22 02/23/20 22 02/23/2022 HEMOG LOBIN [...] LLC) [address], [place], [address], 02/23/2022 09:24:23 02/23/20 22 02/23/2022 HEMOG LOBIN A1C estimated average glucose 123 mg/dL [place] [facility] Gluco se is calcu lated using the equat ion AG = (28.7 x HgbA1 c) - 46.7 based on the guide lines estab lisfredy d by the ADA. Not Available [facility]) [address], [place], [address], 02/23/2022 09:24:23 10/10/19 21 09/21/2020 CT, angio [...] ast No observ ation record ed. [email or web address] Formerly [facility] [address] [place], [place] [address]vd [address], [place], [address], 07/09/2021 10:53:42 04/20/20 22 04/20/2022 DEXA, axial skele ton + verte bral fract ure asses sment No observ ation record ed. [email or web address] [facility] (Administrati on) [address], [place], [address], 04/25/2022 14:32:46 Result Notes None recorded. Problems Name Problem SNOMED Code Status Onset Date Resolution Date Notes Provider Name and Address Organization Details Recorded Time Gastroesophag eal reflux disease without esophagitis 748648996 Active 2018 Not Available [facility] 14:09:48 Anxiety 36294561 Active 2018 Not Available [facility] 14:09:48 Diarrhea 18360872 Active 2018 Not Available [facility] 14:09:48 Hemorrhoids 44906828 Active 2018 Not Available [facility] 14:09:48 Hyperlipidemi a 61930671 Active 2018 Not Available [facility] 14:09:48 Hypertensive disorder 14282266 Active 2018 Not Available [facility] 14:09:48 Prolapsed lumbar intervertebra l disc 498111646 Active 2018 Not Available [facility] 14:09:48 Prediabetes 550078314 Active 2018 Not Available [facility] 14:09:48 Problem Notes None recorded. Procedures Surgical History Date Name Laterality Status Provider Name and Address Organization Details Recorded Time 01/14/20 21 Most Recent Mammogram completed FEDERICO TORRES [place] [facility] 03/08/2021 13:55:22 01/16/20 19 mammography completed Julia Harding [place] - [facility] 04/03/2019 13:18:13 Hysterectomy completed Atiya Dior MD [address], [place], [address], [facility] [place] [facility] 04/03/2019 10:04:22 Appendectomy completed Atiya Dior MD [address], [place], [address], [facility] [place] [facility] 04/03/2019 10:04:33 Tubal Ligation completed Atiya Dior MD [address], [place], [address], [facility] [place] [facility] 04/03/2019 10:04:42 Tonsillectomy completed Atiya Dior MD [address], [place], [address], [facility] [place] [facility] 04/03/2019 10:04:53 Cholecystectomy completed Atiya Dior MD [address], [place], [address], [facility], [place] 04/03/2019 10:05:00 Imaging Results Imaging Date Name Status LastModified by Organization Details LastModified Time 09/21/2020 CT, angiogram, chest, w/wo contrast completed [facility] Information not available 10/09/2020 08:28:47 09/24/2020 electrocardiogram completed [facility] Informa tion not available 10/09/2020 08:28:47 07/08/2021 MRI, lumbar spine, w/wo contrast completed [email or web address] Information not available 07/09/2021 11:06:23 07/07/2021 MRI, lumbar spine, w/o contrast completed [email or web address] Formerly [facility] [address], [place], [address], 07/09/2021 10:53:42 04/20/2022 DEXA, axial skeleton + vertebral fracture assessment [facility] [place] [address] (Administration ) [address] [place], [address], 04/25/2022 14:32:46 Procedure Notes None recorded. Medical Equipment None Reported. Allergies Allergen ID Allergen Name Allergen Category Reaction Reaction Severity Criticality Documentation Date Start Date Code Code System Note Provider Name and Address Organization Details Recorded Time 179 codeine medicatio n Not available Not available Not available 04/03/2019 2670 RxNorm Atiya quarles MD [address] [facility], [place], [address], [facility], [place] 9 10:01:14 180 acetamino phen / oxycodone medicatio n Not available Not available Not available 04/03/2019 [address] 3 RxNorm Atiya quarles MD [address], [place], [address], [facility], [place] 9 10:01:20 Medications Name Sig Start Date [...] 1 154.94 cm 97.8 [degF] 40.8 kg/m2 08860.9 5 g 94 /min 16 /min 95 % 95 % 143 mm[Hg] 75 mm[Hg] FEDERICO TORRES [facility], [place] 1 13:51:43 Date Recorded Body height Oxygen saturation Oxygen saturation in Arterial blood by Pulse oximetry Respiratory rate Heart rate Systolic blood pressure Diastolic blood pressure Provider Name and Address Organization Details Last Updated DateTime 2 154.94 cm 96 % 96 % 18 /min 103 /min 157 mm[Hg] 81 mm[Hg] FEDERICO TORRES [facility], [place] 2 13:21:21 Date Recorded Body temperature Body mass index (BMI) Body weight Provider Name and Address Organization Details Last Updated DateTime 08/23/2021 97.4 [degF] 40.3 kg/m2 64758.61 g SHARONA HIGGINS NP-C [address] [facility] [address] [place] [address], [address], [facility], [place] 08/23/2021 12:58:22 Date Recorded Body height Body temperature Body mass index (BMI) Body weight Respiratory rate Oxygen saturation Oxygen saturation in Arterial blood by Pulse oximetry Heart rate Systolic blood pressure Diastolic blood pressure Provider Name and Address Organization Details Last Updated DateTime 2 154.94 cm 97.7 [degF] 40.2 kg/m2 93808.1 g 16 /min 96 % 96 % 93 /min 136 mm[Hg] 85 mm[Hg] CARMELLA STEINBERG [facility], [place] 2 12:41:15 Date Recorded Body height Heart rate Respiratory rate Oxygen saturation Oxygen saturation in Arterial blood by Pulse oximetry Body temperature Body mass index (BMI) Body weight Systolic blood pressure Diastolic blood pressure Provider Name and Address Organization Details Last Updated DateTime 1 154.94 cm 90 /min 16 /min 96 % 96 % 97.5 [degF] 39 kg/m2 50891.1 8 g 149 mm[Hg] 78 mm[Hg] Mary Bhagat [facility], [place] 1 12:33:24 Date Recorded Body height Body temperature Heart rate Respiratory rate Oxygen saturation Oxygen saturation in Arterial blood by Pulse oximetry Body mass index (BMI) Body weight Systolic blood pressure Diastolic blood pressure Provider Name and Address Organization Details Last Updated DateTime 1 154.94 cm 98 [degF] 101 /min 18 /min 98 % 98 % 38.1 kg/m2 08257.2 5 g 125 mm[Hg] 77 mm[Hg] Mary Bhagat [facility], [place] 1 11:58:26 Social History Question Answer Notes LastModified by Organizat ion Details LastModified Time Tobacco Smoking Status Former Smoker Atiya Dior MD [address] [facility] [address] [place] [address], [address]Formerly [facility], [place] 04/03/2019 10:06:33 Do You Have An Advance Directive? Yes [email or web address] Information not available 04/03/2019 What Is Your Level Of Alcohol Consumption? None [email or web address] Information not available 04/03/2019 What Is Your Level Of Caffeine Consumption? Occasional [email or web address] Information not available 04/03/2019 Are You Currently Employed? No Information not available 03/08/2021 What Type Of Diet Are You Following? REGULAR Information not available 03/08/2021 What Is The Highest Grade Or Level Of School You Have Completed Or The Highest Degree You Have Received? [id number] Information not available 03/08/2021 When Did You Quit Smoking? 16+yearssincel [email or web address] Information not available 03/08/2021 Live Alone Or With Others? Alone [email or web address] Information not available 04/03/2019 What Was The Date Of Your Most Recent Tobacco Screening? 03/08/2021 Information not available 03/08/2021 How Many Children Do You Have? 2 Information not available 04/03/2019 What Is Your Relationship Status? Information not available 03/08/2021 At What Age Did You Start Smoking Tobacco? 16 Information not available 03/08/2021 General Stress Level Low [email or web address] Information not available 04/03/2019 Do You Use Any Illicit Or Recreational Drugs? No Information not available 03/08/2021 How Many Years Have You Smoked Tobacco? 36 Information not available 03/08/2021 Sex: Unknown Functional Status Question Answer Note LastModified by Organizat ion Details LastModified Time Are you able to walk? YESWOREST Information not available 03/08/2021 Are you able to care for yourself? Yes [email or web address] Information not available 04/03/2019 What is your [...] split virus, quadrivalent, preservative 9 completed [place] 10/09/2020 12:31:23 zoster recombinant 0 [place] 10/09/2020 12:31:23 Influenza, split virus, quadrivalent, preservative 0 [place] 10/09/2020 12:31:23 zoster recombinant 1 [place] 10/09/2020 12:31:23 COVID-19, mRNA, LNP-S, PF, 30 mcg/0.3 mL dose 1 completed FEDERICO guadarrama [place] - [facility] 03/22/2021 08:30:16 Past Encounters Encounter ID Performer Location Encounter Start Date Encounter Closed Date Diagnosis/Indication Diagnosis SNOMED-CT Code Diagnosis ICD10 Code Diagnosis Note [id number] Atiya Dior MD Main Office [email or web address] [place] [id number] 04/03/2019 13:02:56 04/03/2019 13:53:59 Gastroesophageal reflux disease without esophagitis 858834617 K21.9 pt having reflux every day and using tums advised pt to try pepcid - will give script avoid dietary triggers weight loss advised Prolapsed lumbar intervertebral disc 761032787 M51.[address] Joya - getting shots every 90 days. debating surgery. Screening for malignant neoplasm of colon 929590487 Z12.11 pt has always done colonoscop y that was normal. she lives alone and getting to and from a colonoscop y would be difficult. will order cologuard. Anxiety 93716932 F41.9 stable on current meds. will continue current care. Hypertensive disorder 38 294407 I10 BP goal < 150/90 continue current care low salt diet and daily exercise recommende d Monitor BP at home and Return to care if elevated above 150/90 >50% of the time. Hyperlipidemia 38467583 E78.5 stable on current meds. will continue current care - weight loss advised and check labs. Prediabetes 026554957 R7 3.03 last A1c was 6.3 advised lifestyle changes [id number] Sukhwinder Vazquez MD Main Office [email or web address] [place] [id number] 07/04/2019 13:53:17 07/04/2019 15:09:10 Postural dizziness 725875846 R42 -suspect orthostati c in nature as only occurs when standing -BP normal however HR goes from 92 to 110 upon standing and positive dizziness -no dizziness/ nystagmus with head thrust -check BMP, hgb -stop HCTZ and continue olmsartan only -orthostat ic dizziness education given Tachycardia 2426581 R00. 0 suspect all orthostati c related, however resting still in 90's is normal for her. -standing >110 -EKG shows normal rhythm Low back pain 953636874 M54.5 Needs to have back surgery and requires clearance. -no exertional or non exertional chest pain -exercises 3 times week -Intermedi ate risk surgery with 4 mets , no clinical risk factors -BMP, cbc normal can proceed to surgery without further testing - medically optimized for surgery. -EKG shows NSR at rest Pre-surger y evaluation 597994971 Z01.818 pt needs back surgery clearance. labs and EKG performed and were WNL. medically optimized for surgery. [id number] Atiya Dior MD Main Office [facility] [employer] [facility] [address] [place] [id number] 07/25/2019 13:21:07 07/25/2019 13:47:25 Hypertensive disorder 44372010 I10 BP goal < 150/90 will increase olmesartan to 40mg daily to help with BP low salt diet and daily exercise recommende d Monitor BP at home and Return to care if elevated above 150/90 >50% of the time. [id number] NIMA FARLEY Main Office [address] [id number] 04/21/2020 11:49:49 04/21/2020 12:38:15 Anxiety 47469630 F41.9 Patient states that covid and social distancing from friends/fa elba has been rough for her lately. Patient states she is relying on family more and doing well on her current medication . Patient encouraged to continue to stay safe while interactin g with her neighbors and continue to stay in touch with family members. Refill sent to [facility]. Gastroesop hageal reflux disease without esophagitis 173214882 K21.9 Patient advised to avoid trigger foods, such as chocolate and pasta, and stay hydrated. Patient will start protonix today and monitor symptoms. Diarrhea 13073993 R19.7 Discussed the benefits of a daily probiotic. Patient will start taking this week. Encouraged patient to stay hydrated and maintain healthy diet while avoiding any trigger foods such as diary. [id number] Atiya Dior MD Main Office [address] [employer] [address] [address] 10/09/2020 11:56:00 10/09/2020 12:56:01 Spinal stenosis of lumbar region 34858156 M48.061 notes, labs and imaging from hospital admission reviewed. S/p surgery and doing well post op Keep up f/u with surgeon natasha removed Hypertensive disorder 38 355145 I10 BP goal < 150/90 continue olmesartan 40mg daily will add amlodipine 2.5 - 5mg daily - SE of medication discussed low salt diet and daily exercise recommende d Monitor BP at home and Return to care if elevated above 150/90 >50% of the time. Sinus tachycardia 373120 01 R00.0 EKG from hospital admission and labs reviewed suspect multifacto rial - pain, anxiety will check stress test but doubt cardiac as cause. [id number] Atiya Dior MD Main Office [address] [email or web address] [address] [place] [id number] 11/06/2020 11:47:01 11/06/2020 12:32:19 Hypertensive disorder 96385962 I10 BP goal < 150/90 continue olmesartan 40mg daily will add amlodipine 2.5 - 5mg daily - SE of medication discussed low salt diet and daily exercise recommende d Monitor BP at home and Return to care if elevated above 150/90 >50% of the time. Anxiety 96128755 F41.9 stable on current meds. will continue current care. Gastroesop hageal reflux disease without esophagitis 038045528 K21.9 doing well on PPI avoid dietary triggers weight loss advised [id number] KARINA HIGUERA Main Office [address] [email or web address] [address] [place] [id number] 03/08/2021 13:29:23 03/08/2021 14:30:48 Hypertensive disorder 23127661 I10 BP log reviewed - will stop amlodipine - has only been taking 1/2 of her 5 mg amlodipine pill daily BP goal < 150/90 low salt diet and daily exercise recommende d Monitor BP at home and Return to care if elevated above 150/90 >50% of the time. Anxiety 10153042 F41.9 doing well on celexa, will renew [id number] KARINA HIGUERA Main Office [address] [email or web address] [address] [place] [id number] 08/23/2021 12:28:27 08/23/2021 13:25:06 Seasonal allergic rhinitis 350309816 J30.2 medication - advised flonase and anti-hista mine, OTC cough syrup or honey supportive care otherwises uspect that dizziness may be coming from congestion related to allergies Hypertensive disorder 38 125396 I10 BP goal < 140/90 Currently at goal and doing well on meds with no SE. Will continue current care. Low salt diet and daily exercise encouraged Advised to monitor BP at home and to RTC if >140/90 > 50% of the time Hyperlipidemia 88415860 E78.5 will update fasting labs Fatigue 57005724 R53.83 will check thyroid labs Vitamin D deficiency 347 80120 E55.9 currently supplement ing vitamin d3 - will update labs Overactive urinary bladder 902636409 N32.81 pt reports trouble sleeping related to getting up to use the bathroom every 2 hours at night - will start oxybutynin ER 10 mg tablet [id number] Atiya Dior MD Main Office [email or web address] [address] [place] [id number] 02/22/2022 12:32:36 02/22/2022 13:23:59 Anxiety 66365341 F41.9 doing well on celexa, will renew Hypertensive disorder 38 862463 I10 BP goal < 140/90 Currently at goal and doing well on meds with no SE. Will continue current care. Low salt diet and daily exercise encouraged Advised to monitor BP at home and to RTC if >140/90 > 50% of the time Gastroesop hageal reflux disease without esophagitis 871808588 K21.9 stable on PPI. avoid dietary triggers Iron defic iency anemia 84001447 D50.9 last H/H was 9.6she is taking iron dailywill recheck labsmay need colonoscop y - denies bleeding Impaired g lucose tolerance 8094771 R73.02 BS was 131 on last set of labswill check A1c Vertigo 356749748 R42 prn use of meclizinew arning signs reviewed - ED if they present Menopausal and postmenopausal disorders 723874478 N95.9 Health Concerns Section Related Observation LastModified by Organization Detai ls LastModified Time None Recorded Concern Status LastModified by Organization Details LastModified Time None Recorded Advance Directives Directive Y: Payers Encounter Date Sequence Insurance Name Policy Number Policy [place] Covered Member ID Hamilton Member ID Guarantor Name 10/09/2020 1 MEDICARE B-[place]: COURTNEY Russ Nima [id number] Yahaira Nima 10/09/2020 3 BCBS-[place]: STRIKE PLANNING APPLICATIONS LIFE (MEDICARE SUPPLEMENT) [id number] Yahaira Nima [id number] [place] Nima 11/06/2020 1 MEDICARE B-[place]: COURTNEY Russ Nima [id number] [place] Nima 11/06/2020 3 BCBS-[place]: STRIKE PLANNING APPLICATIONS LIFE (MEDICARE SUPPLEMENT) [id number] Yahaira Nima [id number] [place] Nima 03/08/2021 1 MEDICARE B-[place]: COURTNEY Russ Nima [id number] Yahaira Nima 03/08/2021 3 BCBS-[place]: STRIKE PLANNING APPLICATIONS LIFE (MEDICARE SUPPLEMENT) [id number] Yahaira Nima [id number] Yahaira Nima 08/23/2021 1 MEDICARE B-[place]: COURTNEY Russ Nima [id number] [place] Nima 08/23/2021 3 BCBS-[place]: STRIKE PLANNING APPLICATIONS LIFE (MEDICARE SUPPLEMENT) [id number] [place] Nima [id number] [place] Nima 02/22/2022 1 MEDICARE B-[place]: COURTNEY Russ Nima [id number] [place] Nima 02/22/2022 3 BCBS-[place]: STRIKE PLANNING APPLICATIONS LIFE (MEDICARE SUPPLEMENT) [id number] Yahaira Nima [id number] Yahaira Nima Notes Date Note Type [...] is better now. Atiya Dior MD [address] [facility] [address], [place], [address], [facility], [place] 10/12/2020 10:55:40 11/06/2020 text/html Follow up, dl cedeno had recent surgery and is still healing from back surgery by Dr. Talley. Patient has been tachycardiac since surgery which has improved on its own. She says she is having trouble with pain in bilateral upper thighs with walking. She is only taking Tylenol for pain. she did not try propranolol. Atiya Dior MD [address] [facility] [address], [place], [address], [facility], [place] 11/10/2020 17:09:55 03/08/2021 text/html Here for f/u on blood pressure. Reports that even taking half of the 5 mg amlodipine tablet she is feeling too dizzy and fatigued. KARINA HIGUERA [address] [facility] [address], [place], [address], [facility], [place] 03/08/2021 19:35:15 08/23/2021 text/html Here to follow u p regarding blood pressure. She has brought her log with her today. BPs are averaging 120s/60s. Her heart rate is usually elevated in the 90s-100s. Has had some dizziness but reports she thinks its allergy related. Pt does have h/o vertigo. KARINA HIGUERA [address] [facility] [address], [place], [address], [facility], [place] 08/23/2021 13:48:40 02/22/2022 text/html She has been [...] in the am. Atiya Dior MD [address] [facility] [address] [facility], [place], [address], [facility] [place] [facility] 02/25/2022 05:13:33 OBGyn Episode No OBEpisode recorded.
--- OUTSIDE RECORDS SUMMARY | 2024-08-29 16:49 | XMS_ITS | Data Portability ---
Author Organization [facility], [facility] Address [address] [place] [address] Care Team Providers Care Corrections Identification Technician Name Role Phone ADEEL KEN Primary Care Provider URBANO BUSH Primary Care Provider Assessment Encounter [...] and may contain typographical and/or grammatical inaccuracies. [email or web address] Not available 11/24/2017 09:55:38 Plan of Treatment Reminders Order Date Submit Date Provider Last Modified By Organization Details Last Modified Time Details Appointments None recorded. Lab None recorded. Referral pain management referral - [facility] Bush MD, [address] , [place], [address], 8 13:16:27 Procedures None recorded. Surgeries None recorded. Imaging XR, shoulder 2017 018 [email or web address] 2 In-House Results, For Internal Use Only, Do Not Delete/merge, [id number] 13:08:25 MRI, lumbar spine, w/o contrast 2017 018 JEANNA In-House Results, For Internal Use Only, Do Not Delete/merge, [id number] 8 15:26:00 XR, lumbar spine 2017 018 [email or web address] In-House Results, For Internal Use Only, Do Not Delete/merge, [id number] 8 13:16:27 Medication Orders None recorded. Patient TargetsNo targets recorded. Patient Instructions Encounter Date Encounter Id Patient Instructions Last Modified By Organization Details Last Modified Time 09/06/2017 [id number] The patient will undergo an MRI of [...] will be referred to pain management in [facility] with Dr. Cisneros. She will need an [...] inaccuracies. [email or web address] Not available 09/06/2017 11:30:07 09/19/2017 [id number] lumbar spinal stenosis: care instructions [email or web address] Not available 09/19/2017 14:22:20 The patient will be referred to Dr. Cisneros in [place] for evaluation and treatment options [email or web address] Not [...] inaccuracies. [email or web address] Not available 09/19/2017 14:21:55 11/24/2017 [id number] shoulder arthrit is: exercises Not available 11/24/2017 10:48:04 Reason for Referral Pain Management Referral for Lumbar spondylosis [facility]AL [facility] TREAT Referring Physician: Nellie Templeton, [facility] [phone] Encounter Date: 09/06/2017 Results Created Date Observation Date Name Description Value Unit Range Abnormal Flag Note LastModifiedBy Organization Detail LastModifiedTime 09/08/19 18 09/07/2017 MRI, lumba r spine , w/o contr ast No observ ation record ed. [facility] [address] [facility] [address], [place], [address], 09/07/2017 16:40:42 Result Notes None recorded. Problems [...] 09/07/2017 MRI, lumbar spine, w/o contrast [facility] [address] [facility] [address], [place], [address], 09/07/2017 16:40:42 Procedure Notes None recorded. Medical Equipment None Reported. Allergies Allergen ID Allergen Name Allergen Category Reaction Reaction Severity Criticality Documentation Date Start Date Code Code System Note Provider Name and Address Organization Details Recorded Time 28541 codeine medicatio n nausea severe Not available [...] Updated DateTime 09/06/2017 154.94 cm 35.9 kg/m2 40106.55 g Antoinette Eldridge [facility] 09/06/2017 11:01:04 Date Recorded Body height Body mass index (BMI) Body weight Provider Name and Address Organization Details Last Updated DateTime 09/19/2017 154.94 cm 35.9 kg/m2 73090.55 g Antoinette Eldridge [facility] 09/19/2017 14:08:51 Date Recorded Body height Body mass index (BMI) Body weight Provider Name and Address Organization Details Last Updated DateTime 11/24/2017 154.94 cm 36.5 kg/m2 29250.33 g Crys Pascual [facility] 11/24/2017 09:36:39 Social History Question Answer Notes LastModified by Minteosizat ion Details LastModified Time Tobacco Smoking Status Former Smoker Antoientte Eldridge thierry [facility] 09/06/2017 11:01:21 What Is Your [...] Functional Status Question Answer Note LastModified by Minteosizat ion Details LastModified Time Do you have [...] SNOMED-CT Code Diagnosis ICD10 Code Diagnosis Note [id number] [facility] [address] [facility], [address] [address] 09/06/2017 10:17:30 09/06/2017 12:23:32 Low back pain 546550824 M54.5 Lumbar spondylosis 13779 0009 M47.896 [id number] Nellie [facility] [address] [facility], [address] [address] 09/19/2017 13:59:27 09/19/2017 14:40:29 Spinal stenosis of lumbar region 49387301 M48.061 Lumbar spondylosis 15866 0009 M47.896 [id number] Luke Pedroza MD SOC [address] [facility], [address] [address] 11/24/2017 09:23:16 11/24/2017 13:08:25 Shoulder joint pain 431534231 M25.511 Localized, primary osteoarthritis of the shoulder region 497113748 M19.011 Health Concerns Section Related Observation LastModified by Organization Detai ls LastModified Time None Recorded Concern Status LastModified by Organization Details LastModified Time None Recorded Advance Directives Directive None Recorded Payers Encounter Date Sequence Insurance Name Policy Number Policy Hamilton Covered Member ID Hamilton Member ID Guarantor Name 09/06/2017 2 [facility]: (PPO) [id number] Yahaira Abebein [id number] [place] Nima 09/06/2017 1 MEDICARE B-[place]: COURTNEY Russ Nima [id number] Satinder Abebein 09/19/2017 2 [facility]: (PPO) [id number] Yahaira Abebein [id number] Yahaira Abebein 09/19/2017 1 MEDICARE B-[place]: COURTNEY Russ Nima [id number] Yahaira Abebein 11/24/2017 2 [facility]: ([place] [id number] Yahaira Abebein [id number] Yahaira Nima 11/24/2017 1 MEDICARE B-[place]: COURTNEY Russ Nima [id number] Satinder Herring Notes Date Note Type Note [...] but for right shoulder tendinitis Nellie merida [address] [place] [address]., [facility] [address], [place], [address], [facility] 09/06/2017 11:30:17 09/19/2017 text/html F/UReported [...] well as her reports to take to [facility] pain management physician. Overall her medical condition is unchanged from her previous office visit. Nellie merida [address], [place], [address], [facility] 09/19/2017 14:22:03 11/24/2017 text/html Roxane is a 72-year-old right-hand dominant female comes in for right shoulder pain. She moved her area from [place] back in March. She first reported the [...] PM at nighttime. Luke Pedroza MD [address], [place], [address], [facility] 11/24/2017 11:27:02 OBGyn Episode No OBEpisode recorded.
--- OUTSIDE RECORDS SUMMARY | 2024-08-29 16:49 | XMS_ITS | Clinical Summary ---
Author Organization [employer] Address [address] [facility] [address] [place] [address] Care Team Providers Care Dope Heater Name Role Phone Unavailable Primary Care Provider [...] patient's age to complete this topic Insurance [facility] MEDEX CARE MEDICARE
--- OUTSIDE RECORDS SUMMARY | 2024-08-29 16:49 | XMS_ITS | Data Portability ---
Author Organization ID - [facility], [facility]- Address [address] [place] [address] Care Team Providers Care Saddle Stitching Machine Operator Name Role Phone ATIYA LIM Primary Care Provider Assessment Encounter Date Assessment [...] and may contain typographical and/or grammatical inaccuracies. [email or web address] Not available 02/20/2019 13:50:16 03/27/2019 03/27/2019 Impression: [...] and may contain typographical and/or grammatical inaccuracies. [email or web address] Not available 03/27/2019 11:42:54 03/05/2020 03/05/2020 DIAGNOSTIC [...] L4-5. 6. Status post MILD procedure, Dr. Buhs, 06/2019. 7. L5-S1 spondylolisthesi s. 8. Right [...] that a second opinion be sent to [facility]. Not available 03/18/2020 07:27:59 Plan of Treatment Reminders Order Date Submit Date Provider Last Modified By Organization Details Last Modified Time Details Appointments None recorded. Lab None recorded. Referral None recorded. Procedures None recorded. Surgeries None recorded. [facility] [address] [facility], [address], [place], [address], 0 17:15:23 MRI, lumbar spine, w/o contrast 2019 [facility], [address] [facility], [address], [place], [address], 0 09:17:39 Medication Orders Compound 309 2018 019 [facility], [address], [place], [address], 9 12:05:47 Patient TargetsNo targets recorded. Patient InstructionsNo instructions recorded. Reason for Referral None Reported. Results Created Date Observation Date Name Description Value Unit Range Abnormal Flag Note LastModifiedBy Organization Detail LastModifiedTime 03/12/20 20 03/12/2020 MRI, lumba r spine , w/o contr ast No observ ation record ed. [facility]- [address], [place], [address], 03/12/2020 16:36:42 Result Notes None recorded. Problems Name Problem SNOMED Code Status Onset Date Resolution Date Notes Provider Name and Address Organization Details Recorded Time No current problems or disability 930120779 Active HAYDEN Patel - [facility] 9 14:03:11 Lumbar radiculopathy 466048836 Active 2018 HAYDEN Patel - [facility] 9 14:07:50 Backache 245174203 Active 2018 Ju Bhagat null, [place] - [facility] 9 14:07:51 Problem Notes None recorded. Procedures Surgical History Date Name Laterality Status Provider Name and Address Organization Details Recorded Time 02/21/20 19 Injection Shoulder completed Crys Pascual [place] - [facility] 02/20/2019 13:09:09 05/22/18 94 Hysterectomy completed Daniel Wilcoxn [place] - [facility] 03/05/2020 11:35:23 05/22/18 72 Gallbladder Surgery completed Daniel Sexton [place] - [facility] 03/05/2020 11:35:23 05/22/18 68 Appendectomy completed Ju Bhagat [place] - [facility] 04/10/2018 15:08:34 05/22/18 60 Breast completed Daniel Sexton [place] - [facility] 03/05/2020 11:35:23 Imaging Results Imaging Date Name Status LastModified by Organiz ation Details LastModified Time 03/12/2020 MRI, lumbar spine, w/o contrast [facility] [place] [address] Physical Therapy- [address], [place], [address], 03/12/2020 16:36:42 Procedure Notes None recorded. Medical Equipment None Reported. Allergies Allergen ID Allergen Name Allergen Category Reaction Reaction Severity Criticality Documentation Date Start Date Code Code System Note Provider Name and Address Organization Details Recorded Time 76852 codeine medicatio n nausea moderate Not available 06/12/2018 2670 RxNorm Not Available Not Available Not Available 12641 acetamino phen / oxycodone medicatio n nausea moderate Not available 06/12/2018 49439 3 RxNorm Not Available Not Available Not [...] Updated DateTime 02/20/2019 154.94 cm 37.4 kg/m2 30269.29 g Crys Castilloe [place] - [facility] 02/20/2019 13:08:20 Date Recorded Body height Body mass index (BMI) Body weight Provider Name and Address Organization Details Last Updated DateTime 03/27/2019 154.94 cm 37.8 kg/m2 97047.47 g Crys Pascual [place] - [facility] 03/27/2019 11:18:57 Date Recorded Body height Body mass index (BMI) Body weight Provider Name and Address Organization Details Last Updated DateTime 03/05/2020 154.94 cm 37.8 kg/m2 16180.47 g Daniel Sexton [place] - [facility] 03/05/2020 11:35:08 Date Recorded Body height Body mass index (BMI) Body weight Provider Name and Address Organization Details Last Updated DateTime 03/17/2020 154.94 cm 37.8 kg/m2 00108.47 g Robyn Cruz [place] - [facility] 03/17/2020 13:58:17 Date Recorded Body height Body mass index (BMI) Body weight Provider Name and Address Organization Details Last Updated DateTime 08/17/2020 154.94 cm 40.1 kg/m2 43041.58 g Asa Barnes MD [address], [place], [address], [place] - [facility] 08/17/2020 14:32:09 Social History Question Answer Notes LastModified by Organizat ion Details LastModified Time Tobacco Smoking Status Former Smoker Ju Bhaagt thierry, [place] - [facility] 04/10/2018 15:08:34 Do You Have An Advance Directive? No [email or web address] Information not available 04/10/2018 What Is Your Level Of Alcohol Consumption? Occasional [email or web address] Information not available 04/10/2018 Is Blood Transfusion Acceptable In An Emergency? Yes [email or web address] Information not available 04/10/2018 In The 14 [...] When Did You Quit Smoking? 1-5yearssincelast cigarette [email or web address] Information not available 04/10/2018 Live Alone Or With Others? Alone [email or web address] Information not available 04/10/2018 Have You Been Diagnosed With Menopause? Yes [email or web address] Information not available 04/10/2018 Have You Been Diagnosed With Vitamin D Or Calcium Deficiency? No [email or web address] Information not available 04/10/2018 Have You Had A Bone Density Test (DEXA) Performed In The Past 2 Years? If Yes: Where? When? [place] [email or web address] Information not available 04/10/2018 Have You Used Antacids Continuously For More Than 6 Months? Yes Information not available 03/05/2020 Have You Used Steroids Daily For More Than 3 Months? No Information not available 04/10/2018 Do You Have A Medical Power Of Plywood Patcher? Yes [email or web address] Information not available 04/10/2018 At What Age Did You Start Smoking Tobacco? 17 [email or web address] Information not available 04/10/2018 Has Tobacco Cessation Counseling Been Provided? No [email or web address] Information not available 04/10/2018 Sex: Unknown Functional Status Question Answer Note LastModified by Organizat ion Details LastModified Time What is your exercise level? Occasional [email or web address] Information not available 04/10/2018 Mental Status None recorded. Family History Relationship Description Onset Age of this Age Resolved Age Notes LastModified by Organization Details LastModified Time Father No current problems or disability Not available 02/20 13:08:40 Mother No current problems or disability [email or web address] Not available 02/20 13:08:40 Medical History Condition Response Coronary Artery Disease N Anxiety/Depression Y Other N Gout N Enlarged Prostate N MRSA N Blood [...] Problems N Anemia N Multiple Sclerosis N Ulcers N Heart Attack (CT) N Stomach Ulcers N Diabetes N Bleeding [...] SNOMED-CT Code Diagnosis ICD10 Code Diagnosis Note [id number] MD Zbigniew Johnson[address] [place] [address] 04/10/2018 14:33:04 04/10/2018 15:37:52 Lumbar radiculopathy 999987435 M54.16 Backache 035636785 M54.9 [id number] Bill [facility]valcaba [facility] [address] [facility],[address] [place] [address] 06/12/2018 13:49:18 06/12/2018 14:08:09 Lumbar radiculopathy 703293109 M54.16 Backache 942521403 M54.9 [id number] Luke Pedroza MD [address] [place] [address] 02/20/2019 13:00:00 02/20/2019 14:43:18 Localized, primary osteoarthritis of the shoulder region 852200353 M19.011 340855 Luke Pedroza MD [address] [place] [address] 03/27/2019 11:13:54 03/28/2019 16:29:20 Synovitis/tenosynovit is - shoulder 779231268 M65.811 [id number] Bill Ruvalcaba MD [facility] [address] [facility] [place] [address] 03/05/2020 10:49:33 03/05/2020 13:23:36 Lumbar radiculopathy 491142718 M54.16 Backache 715076097 M54.9 Spinal adriano nosis of lumbar region 30582429 M48.061 [id number] Bill Ruvalcaba MD [facility] [address] [facility] [place] [address] 03/17/2020 13:51:00 03/18/2020 13:44:59 Lumbar radiculopathy 355738530 M54.16 Backache 693120258 M54.9 Spinal adriano nosis of lumbar region 31817289 M48.108 [id number] Asa [facility] MD [facility] [address] [facility] [address] [place] [address] 08/17/2020 13:57:11 08/18/2020 10:55:48 Spinal stenosis of lumbar region 80580292 M48.062 X-ray findings/i nterpretat ion: {{Mild Mod [...] she has any further questions. Lumbar spondylolisthesis 5887388996 99572 M43.16 Health Concerns Section Related Observation LastModified by Organization Detai ls LastModified Time None Recorded Concern Status LastModified by Organization Details LastModified Time None Recorded Advance Directives Directive N: Payers Encounter Date Sequence Insurance Name Policy Number Policy Hamilton Covered Member ID Hamilton Member ID Guarantor Name 02/20/2019 1 MEDICARE B-[place]: COURTNEY Herring [id number] Yahaira Herring 02/20/2019 2 [place]: ([place]) [id number] Yahaira Herring [id number] Yahaira Herring 03/27/2019 1 MEDICARE B-[place]: COURTNEY Russ Nima [id number] Yahaira Petrona Nima 03/27/2019 2 [place]: ([place]O) [id number] Yahaira Nima [id number] [place] Petrona Nima 03/05/2020 1 MEDICARE B-[place]: COURTNEY Russ Nima [id number] Yahaira J Nima 03/05/2020 2 [place]: (PP[place]) [id number] [place] Nima [id number] [place] J Nima 03/17/2020 1 MEDICARE B-[place]: COURTNEY Russ Nima [id number] Yahaira Petrona Nima 03/17/2020 2 [place]: ([place]) [id number] [place] Nima [id number] [place] J Nima 08/17/2020 1 MEDICARE B-[place]: COURTNEY Russ Nima [id number] Yahaira Petrona Nima 08/17/2020 2 [place]: ([place]) [id number] [place] Nima [id number] Yahaira J Nima Notes Date Note Type Note [...] with motion particularly abduction. Luke Pedroza MD [address] [address], [place], [address], [place] [facility] 02/20/2019 13:50:23 03/27/2019 text/html Patient returns today for her right shoulder. Injection in her right shoulder 1 month ago did not help. She takes Aleve. She denied pain for several months now. She has pain at night. Luke Pedroza MD [address], [place], [address], [place] [facility] 03/27/2019 12:07:50 03/05/2020 text/html L-spineReported henna.Location:[facility] Quality:aching; occasional; worsening Severity:mild Duration:date of onset: [...] following the procedure. Bill Ruvalcaba MD [address], [place], [address], [place] [facility] 03/10/2020 17:05:07 03/17/2020 text/html HISTORY OF PRESE NT ILLNESSToday, on 03/17/2020, Yahaira is a 74-year-old female who presents for review of her lumbar spine MRI results. Bill Ruvalcaba MD [address], [place], [address], [place] [facility] 03/18/2020 07:28:16 08/17/2020 text/html [...] without long lasting results. Asa Barnes MD [address], [place], [address], [facility] 08/17/2020 16:46:20 OBGyn Episode No OBEpisode recorded.
--- OUTSIDE RECORDS SUMMARY | 2024-08-29 16:49 | XMS_ITS ---
Author Organization [facility] Address [address] [place] [address] Care Team Providers Care Quality Review Specialist Name Role Phone Anne Lin Unavailable [phone] Encounters Encounter Location Date Provider Diagnosis [facility] [address] [place] [address] 08/13/2024 Anne Lin Plan Of Treatment No Information Progress Notes * Yahaira JAINDOB: [birth year] (78 yo F)Acc No.[id number]:08/13/2024 Progress Notes Patient:?Yahaira JAIN Provider:?Anne Lin DPM :1945???Age:78 Y???Sex:Female D ate:08/13/2024 Address: [address], [id number] Subjective: * Chief Complaints: * ??? * Medical History:? Objective: * Vitals:? Assessment: Plan: * Treatment: * Images: * The named appointment provid er may or may not be the originator of this progress note, and it is not deemed complete until electronically signed by the appointment provider. Sign off status: Pending * Provider:?Anne Lin DPM Date:? Generated for Evai sherin/Karon/eTransmitting on:?08/29/2024 04:49 PM EDT
--- OUTSIDE RECORDS SUMMARY | 2024-08-29 16:50 | XMS_ITS | Patient Health Record ---
Author Organization [facility] Address [address] [place] [address] Care Team Providers Care Scrape Gatherer Name Role Phone Karyna Clarke Unavailable [phone] Reason For Referral No Information Medications Medication SIG (Take, Route, Frequency, Duration) Notes Start Date End Date Status hydroCHLOROthiazide 1 ORAL daily for -3 [facility] 09/24/2012 Active Citalopram Hydrobromide 20MG ORAL for -3 [facility] 4 Active CeleBREX 200MG ORAL for -3 [facility] 10/15/2013 Ac tive Vitamin E 200UNITS 1 ORAL daily for -3 [facility] 09/24/2012 Active Atenolol 25MG 1 ORAL DAILY for -3 [facility] 09/24/2012 Active Calcium 1 ORAL daily for -3 [facility] 09/24/2012 Active Vitamin D3 1000 IU ORAL daily for -3 [facility] 09/24/2012 Active [place] Jelly 1 ORAL daily for -3 [facility] 09/24/2012 Active Problems Problem Type SNOMED Code ICD Code Onset Dates Problem Status W/U Status Risk Notes Problem Menopausal symptom (81317354) Symptomatic menopausal or female climacteric states (627.2) Active confirmed Major Problem Gynecological examination normal (695652630590242) Routine gynecological examination (V72.31) Active confirmed Diag Problem Exercises teaching, guidance, and counseling (767176584) Exercise counseling (V65.41) Active confirmed Diag Problem Screening for malignant neoplasm of colon (236770565) Special screening for malignant neoplasms, colon (V76.51) Active confirmed Major Plan Of Treatment No Information Insurance Providers Payer Name Payer Address Payer Phone Subscriber Number Group Number Insured Name Patient Relationship to Insured Coverage Start Date Coverage End Date MEDICARE [address] [place], [place] [id number] [phone] [id number] SUSYSILVESTRENATALY Self - patient is the insured 1 MEDEX [address] [place] [address] [phone] [id number] JOHN JAINETTA Self - patient is the insured 1
--- OUTSIDE RECORDS SUMMARY | 2024-08-29 16:50 | XMS_ITS ---
Author Organization [facility] Address [address] [facility] [address] Care Team Providers Care Hall Coordinator Name Role Phone Anne Lin Unavailable [phone] Allergies Allergen (clinical drug ingredient) Drug/Non Drug [...] Negative Encounters Encounter Location Date Provider Diagnosis [facility] [address] [place] [address] 07/24/2024 Anne Lin Plan Of Treatment No Information Progress Notes * Yahaira JAINDOB: [birth year] (78 yo F)Acc No.[id number]:07/24/2024 Progress Notes Patient:?Yahaira JAIN Provider:?Anne Lin DPM :1945???Age:78 Y???Sex:Female D ate:07/24/2024 Address:[address] [place] [address] [id number] Subjective: * Chief Complaints: * ??? * [...] DPM Date:?09/2024 Generated for Jose Manuel duff/Karon/Maisha on:?08/29/2024 04:49 PM EDT
== END 2024-08-29 15:16 | disposition home or self-care (01) ==
LOC: HO.HNS 13:57
PROVIDERS: Visit Provider Physician Assistant
DX: M51.369 Other intervertebral disc degeneration, lumbar region without mention of lumbar back pain or lower extremity pain (principal); M43.16 Spondylolisthesis, lumbar region
CPT/HCPCS: 99024

== ENCOUNTER 2024-08-29 13:56 | Outpatient (REF) | payer MEDICARE, SELFPAY | END 2024-08-29 13:57 | disposition home or self-care (01) | LOC: HO.HOSX 13:56 | PROVIDERS: Visit Provider Physician Assistant | DX: M43.16 Spondylolisthesis, lumbar region (principal); M51.369 Other intervertebral disc degeneration, lumbar region without mention of lumbar back pain or lower extremity pain | CPT/HCPCS: 99212 ==

== ENCOUNTER 2024-10-02 15:29 | Inpatient (IN) | payer MEDICARE, SELFPAY ==
--- NOTE | 2024-10-02 | ECG_ITS ---
Test Reason : WEAKNESS Blood Pressure : */* mmHG Vent. Rate : 99 BPM Atrial Rate : 99 BPM P-R Int : 164 ms QRS Dur : 86 ms QT Int : 368 ms P-R-T Axes : 44 48 31 degrees QTcB Int : 472 ms Normal sinus rhythm Possible Inferior infarct (cited on or before 07-Aug-2024) Abnormal ECG When compared with ECG of 07-Aug-2024 13:19, No significant change was found Referred By: Generic ED Physician Electronically Signed By: NONI TORRES MD
--- NOTE | ~2024-10-02 | CT_ITS ---
CLINICAL HISTORY: aphasia CTA of the head and neck with 3-D postprocessing Comparison: None Findings: There is 60% stenosis of left proximal internal carotid artery. No significant right carotid artery stenosis. Intact vertebral arteries. The vertebral basilar system is patent. The cerebellar and posterior cerebral arteries are intact. The intracranial internal carotid arteries are patent. There is severe calcified atherosclerotic disease of the carotid siphons bilaterally. There is up to 50% stenosis of the right internal carotid artery (see series 7 images 238 through 250). In this region there is focal outpouching of the vessel measuring up to 3 mm ( series 7, image 247). The middle/anterior cerebral arteries are intact. No abrupt cutoff. No mass, midline shift, hydrocephalus, acute hemorrhage or abnormal contrast enhancement. Mild paraseptal and centrilobular emphysema with mild scarring. Ground-glass opacity in the right upper lobe measures up to 6 mm, Likely infectious/inflammatory. The soft tissues of the head and neck are unremarkable. Impression: Significant stenosis of the left proximal internal carotid artery, 60%. Up to 50% stenosis of the right ICA terminus. Question of 3 mm aneurysm of the right internal carotid artery at the carotid siphon. No occlusion. This document has been electronically signed by: Svetlana Cotton MD on 10/02/2024 17:49:05
--- NOTE | ~2024-10-02 | CT_ITS ---
CLINICAL HISTORY: aphagia CT head without contrast Comparison: None Findings: No acute hemorrhage. No extra-axial fluid collection. No hydrocephalus, mass-effect or herniation. Cooper-white differentiation is maintained. There is patchy hypoattenuation of the periventricular and deep white matter, which is most likely the sequela of moderate to severe chronic small vessel ischemic disease. Encephalomalacia in superior aspect of the left cerebellum. No acute orbital pathology. No acute soft tissue abnormality. No fracture. Small foamy secretions in the right maxillary sinus. The other visualized paranasal sinuses are predominantly clear. The mastoid air cells are clear. Impression: No acute findings. This document has been electronically signed by: Svetlana Cotton MD on 10/02/2024 17:33:44
--- NOTE | ~2024-10-02 | MR_ITS ---
EXAMINATION: MR BRAIN WITHOUT IV CONTRAST HISTORY: TIA TECHNIQUE: Sagittal T1, and axial T1, FLAIR, T2, gradient echo, and diffusion weighted MR images of the brain were obtained. COMPARISON: Correlation is made with an unenhanced head CT dated 10/02/2024. FINDINGS: There is mild prominence of the ventricular system and cortical sulci, consistent with atrophy. Periventricular and subcortical white matter hyperintensities are noted on the FLAIR and T2-weighted images which are nonspecific, but often seen in the setting of small vessel ischemic disease. Again seen is encephalomalacia in the bilateral cerebellar hemispheres, left greater than right, consistent with old infarcts. There is no mass effect or midline shift. No intra or extra-axial fluid collections are identified. Diffusion-weighted images demonstrate small foci of restricted diffusion in the left parietal lobe (series 6, images 16-17), consistent with acute infarcts. Normal vascular flow voids are noted in the basilar and carotid arteries. The visualized paranasal sinuses are clear. MR/MR head/brain wo con IMPRESSION: Small acute left parietal infarcts. Findings were communicated to Myrna Yusuf by secure text message on 10/03/2024 at 11:18 AM and confirmed received at 11:19 AM. Electronically signed by: Dinh Siegel MD 10/03/2024 11:20 AM EDT
[2024-10-02 15:46] VITALS: BP 126/47; BP 160/84; PULSE 103; PULSE 110; RESP 16; TEMP 36.8; O2SAT 96; O2SAT 97; BMI 38.2
[2024-10-02 15:49] VITALS: BP 126/47; PULSE 103; RESP 16; TEMP 36.8; O2SAT 96
--- OUTSIDE RECORDS SUMMARY | 2024-10-02 16:08 | XMS_ITS | Patient Health Record ---
Author Organization [facility] Physician Yoseph es Billing Info Address [address] [place] [address] [place] [address] Support Name Relationship Address Phone Tricia Real Emergency Contact [address] [address] Yahaira Herring Guarantor Unknown Allergies Allergen [...] Problem Status W/U Status Risk Notes Problem 238020734199523 Spondylolisthesi s, lumbar region (M43.16) Active confirmed Problem 209240642 Radiculopathy, lumbar region (M54.16) Active confirmed Problem 03331265 Spinal stenosis, 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) Active confirmed Problem 397998818 Lumbar radiculopathy (M54.16) Active confirmed Problem 742075073 Lumbar spondylos is (M47.816) Active confirmed Problem 244809802 Lumbar radiculopathy, chronic (M54.16) Active confirmed Problem 808110131 Spondylolisthesi s, unspecified spinal region (M43.10) Active confirmed Problem 22876012 Hypertension, unspecified type (I10) Active confirmed Problem 622197291 Gastroesophageal reflux disease, unspecified whether esophagitis present (K21.9) Active confirmed Plan Of Treatment Future Test Test Name Order Date MRI-LUMBAR SPINE; W/O CONTRAST MATL (721 48) 08/18/2020 XRAY- SPINE LUMBAR AP AND LAT/SPOT (7210 0)([facility]) 11/12/2020 CT- LUMBAR SPINE W/O CONTRAST (20396)([facility] 01/12/2021 XRAY- SPINE LUMBAR AP AND LAT/SPOT (7210 0)([facility]) 03/16/2021 CT- [facility] W[facility]O CONTRAST (42176[facility] 07/13/2021 Insurance Providers Payer Name Payer Address Payer Phone Subscriber Number Group Number Insured Name Patient Relationship to Insured Coverage Start Date Coverage End Date MEDICARE [place] PART B [address] [facility] [place] [id number] Yahaira Herring Self - patient is the insured [facility] PPO [address] [place], [place] [id number] Yahaira Herring Self - patient is the insured Medical (General) History Medical History History ICD Code Lumbar radiculopathy Hypertension, unspecified type I10 Gastroesophageal reflux disease, unspeci fied whether esophagitis present K21.9 Spondylolisthesis, unspecified spinal re gion M43.10 Surgical History Surgery Date(Month/Year) hysterectomy gall bladder surgery appendectomy breast surgery Hospitalization History Reason Date(Month/Year) See Above
--- OUTSIDE RECORDS SUMMARY | 2024-10-02 16:08 | XMS_ITS | Patient Health Record ---
Author Organization [facility] Tanner [place] Address [address] [place] [address] Care Team Providers Care Clarity Developer Name Role Phone Stephie Lisa Primary Care Provider Unavailab Anne Borjas Unavailable [phone] Allergies Allergen (clinical drug ingredient) Drug/Non Drug [...] date) Former Smoker NA - NA Tobacco use other than smoking: Question Answer Notes Are you an other tobacco user? No Tobacco Control (Standard) Question Answer Notes Tobacco use: Former smoker Additional Findings: Tobacco non-user Current no nsmoker [...] Status Risk Notes Problem Pain in limb (82722746) Pain in left toe(s) (M79.675) Active confirmed Encounters Encounter Location Date [facility] [address] [place] [address] [facility] [address] [place] [address] [facility] [address] 07/31/2024 Anne Lin Plan Of Treatment Pending Test Test Name Order Date [id number] NAIL, 6 OR MORE 06/14/2012 [id number] NAIL, 1-5 02/25/2013 29821-MZIWVHX NAIL, 1-5 08/29/2012 [id number] NAIL, 1-5 11/28/2012 82862-Svsvgvvp Plate 11/28/2012 31125-[id number] Plate 02/25/2013 79273-Osasvppd Plate 06/14/2012 57794-Rvvyggto Plate 08/29/2012 Next Appt Details Provider Name:Sal Mace , 10/15/2024 01:00:00 PM, [address] [place], [address], Insurance Providers Payer Name Payer Address Payer Phone Subscriber Number Group Number Insured Name Patient Relationship to Insured Coverage Start Date Coverage End Date Medicare [facility] [address] [place] [address] [id number] Yahaira Herring Self - patient is the insured 0 [employer] [address] [place] [address] [phone] [id number] Yahaira Herring Self - patient is the insured 0 Medical (General) History Medical History History ICD Code mumps measles high blood pressure chicken pox Pagets disease of bones arthritis Cataracts Menieres disease Reflux ( GERD) Sciatica Joint implants/screws Surgical History Surgery Date(Month/Year) nueroma left foot CABG surgery
--- OUTSIDE RECORDS SUMMARY | 2024-10-02 16:08 | XMS_ITS ---
Author Organization [facility] Address [address] [place] [address] Care Team Providers Care Deputy District Customs Director Name Role Phone Lisa Card Primary Care Provider Unavailab Anne Borjas [phone] REASON FOR VISIT SIDEWALK INSPECTOR PPWK Entered Encounters Encounter Location Date Provider Diagnosis [facility] [address] [place] [address] 09/26/2024 Anne Lin Plan Of Treatment Next Appt Details Provider Name:Sal Mace , 10/15/2024 01:00:00 PM, [address] [place], [address], Progress Notes * Yahaira JAINDOB: [birth year] (79 yo F)Acc No.[id number]:09/26/2024 Patient:?Yahaira JAIN :1945???Age:79 Y???Sex:Female Address:[address] [address] * * Date:?
--- OUTSIDE RECORDS SUMMARY | 2024-10-02 16:09 | XMS_ITS ---
Author Organization [facility] Address [address] [place] [address] Care Team Providers Care Stump Shooter Name Role Phone Lisa Card Primary Care Provider UnavailAnne Tobar [phone] Encounters Encounter Location Date Provider Diagnosis [facility] [address] [place] [address] 08/13/2024 Anne Lin Plan Of Treatment Next Appt Details Provider Name:Sal Mace , 10/15/2024 01:00:00 PM, [address] [place], [address], Progress Notes * SUSYAbdulkadirelbaDOB: [birth year] (79 yo F)Acc No.[id number]:08/13/2024 Progress Notes Patient:?Abdulkadir JAINrietta Provider:?Anne Lin DPM :1945???Age:78 Y???Sex:Female D ate:08/13/2024 Address:[address], [place] Pcp:Lisa Card Subjective: * Chief Complaints: * ??? * Medical History:? Objective: * Vitals:? Assessment: Plan: * Treatment: * Images: * The named appointment provid er may or may not be the originator of this progress note, and it is not deemed complete until electronically signed by the appointment provider. Sign off status: Pending * Provider:Luis Lin DPM Date:? Generated for Jose Manuel duff/Karon/Maisha on:?10/02/2024 04:09 PM EDT
--- OUTSIDE RECORDS SUMMARY | 2024-10-02 16:09 | XMS_ITS | Data Portability ---
Author Organization [place] [facility] [place]ET[place], Main Office Address [address] [place] [address] [place] [id number] Care Team Providers Care Deputy Chief Magistrate Name Role Phone ATIYA LIM Primary Care Provider JALEEL ORELLANA Orthopedist ALBERTA JOYA Pain Management ARNIE BUSTAMANTE OTHER Assessment No assessment recorded. Plan of Treatment Reminders Order Date Submit Date Provider Last Modified By Organization Details Last Modified Time Details Appointments None recorded. Lab CMP, serum or plasma 2021 [facility] ([facility]), [address], [place], [address], 09:24:20 HbA1c (hemoglob in A1c), blood 2021 [facility] ([facility]), [address], [place], [address], 09:24:23 iron + total iron-bind ing capacity (TIBC), serum 2021 [facility] ([facility]), [address], [place], [address], 09:24:21 ferritin, serum or plasma 2021 [facility] ([facility]), [address], [place], [address], 09:24:22 CBC w/ auto diff 2021 [facility]), [address], [place], [address], 09:24:19 vitamin D, 25-hydrox y + 1,25-dihy droxy, serum 2021 [facility] [address] [place], [address], 14:36:53 lipid panel, serum 2021 [facility] [address] [place], [address], 14:36:53 CMP, serum or plasma 2021 [facility] [address] [place], [address], 14:36:52 CBC w/ auto diff 2021 [facility] [address] [place], [address], 14:36:52 TSH + free T4, serum 2021 [facility] [address] [place], [address], 14:36:51 Referral None recorded. Procedures None recorded. Surgeries None recorded. Imaging DEXA, axial skeleton + vertebral fracture assessmen t 2021 [facility] ([facility]), [address], [place], [address], 18:24:36 NM, myocardia l perfusion scan, w/ stress - Please do Mariluz Scan only, NO TREADMILL 2020 [email or web address] 6 [facility] ([facility]), [address], [place], [address], 12:04:59 Medication Orders olmesarta n 40 mg tablet 2021 [email or web address], [facility], [place], [address], 13:34:24 citalopra m 20 mg tablet 2021 [facility], [facility], [place], [address], 13:12:11 meclizine 25 mg tablet 2021 [facility], [facility], [place], [address], 13:12:10 pantopraz ole 40 mg tablet,de layed release 2021 [facility], [facility], [place], [address], 13:12:13 oxybutyni n chloride ER 10 mg tablet,ex tended release 24 hr 2021 [id number] [address], [place], [address], 13:10:36 olmesarta n 40 mg tablet 2020 [email or web address] [facility], [facility], [place], [address], 19:28:07 citalopra m 20 mg tablet 2020 021 [facility], [place], [address], 14:27:53 amlodipin e 5 mg tablet [email or web address] [facility] [address] [facility] [place], [address], 13:03:53 olmesarta n 40 mg tablet 2020 021 [email or web address], [place], [address], 17:07:39 pantopraz ole 40 mg tablet,de layed release 2020 021 [facility], [place], [address], 12:28:29 citalopra m 20 mg tablet 2020 021 [facility], [place], [address], 12:28:27 amlodipin e 5 mg tablet 2020 021 [email or web address] [id number], [address], [address], 13:03:53 Patient TargetsNo targets recorded. Patient Instructions Encounter Date Encounter Id Patient Instructions Last Modified By Organization Details Last Modified Time 02/22/[id number] mammogram pending for 03/2022 [email or web address] Not available 02/22/2022 13:11:39 Reason for Referral None Reported. Results Created Date Observation Date Name Description Value Unit Range Abnormal Flag Note LastModifiedBy Organization Detail LastModifiedTime 11/30/1911/30/2021 TSH+F REE T4 TSH 1.670 uIU/m L 0.450- 4.500 Not Available [facility] ([facility]) [address] [place], [address], 11/30/2021 14:36:51 11/30/19 22 11/30/2021 TSH+F REE T4 T4,free(dire ct) 0.96 NG/dL 0.82-1 .77 Not Available [facility] ([facility]) [address] [place], [address], 11/30/2021 14:36:51 11/30/19 22 11/29/2021 CBC WITH DIFFE RENTI AL/PL ATELE T WBC 6.3 x10e3 /uL 3.4-10 .8 Not Available [facility] ([facility]) [address] [place], [address], 11/30/2021 14:36:52 11/30/19 22 11/29/2021 CBC WITH DIFFE RENTI AL/PL ATELE T RBC 4.50 x10e6 /uL 3.77-5 .28 Not Available [facility] ([facility]) [address] [place], [address], 11/30/2021 14:36:52 11/30/19 22 11/29/2021 CBC WITH DIFFE RENTI AL/PL ATELE T hemoglobin 9.6 g/dL 11.1-1 5.9 below low normal Not Available [facility] ([facility]) [address] [place], [address], 11/30/2021 14:36:52 11/30/19 22 11/29/2021 CBC WITH DIFFE RENTI AL/PL ATELE T hematocrit 32.1 % 34.0-4 6.6 below low normal Not Available [facility] ([facility]) [address] [place], [address], 11/30/2021 14:36:52 11/30/19 22 11/29/2021 CBC WITH DIFFE RENTI AL/PL ATELE T MCV 71 fL 79-97 below low normal Not Available [facility] ([facility]) [address] [place], [address], 11/30/2021 14:36:52 11/30/19 22 11/29/2021 CBC WITH DIFFE RENTI AL/PL ATELE T MCH 21.3 pg 26.6-3 3.0 below low normal Not Available [facility] ([facility]) [address] [place], [address], 11/30/2021 14:36:52 11/30/19 22 11/29/2021 CBC WITH DIFFE RENTI AL/PL ATELE T MCHC 29.9 g/dL 31.5-3 5.7 below low normal Not Available [facility] ([facility]) [address] [place], [address], 11/30/2021 14:36:52 11/30/19 22 11/29/2021 CBC WITH DIFFE RENTI AL/PL ATELE T RDW 15.5 % 11.7-1 5.4 above high normal Not Available [facility] ([facility]) [address] [place], [address], 11/30/2021 14:36:52 11/30/19 22 11/29/2021 CBC WITH DIFFE RENTI AL/PL ATELE T platelets 443 x10e3 /uL 150-45 0 Not Available [facility] ([facility]) [address] [place], [address], 11/30/2021 14:36:52 11/30/19 22 11/29/2021 CBC WITH DIFFE RENTI AL/PL ATELE T neutrophils 60 % not estab. Not Available [facility] ([facility]) [address] [place], [address], 11/30/2021 14:36:52 11/30/19 22 11/29/2021 CBC WITH DIFFE RENTI AL/PL ATELE T lymphs 27 % not estab. Not Available [facility] ([facility]) [address] [place], [address], 11/30/2021 14:36:52 11/30/19 22 11/29/2021 CBC WITH DIFFE RENTI AL/PL ATELE T monocytes 10 % not estab. Not Available [facility] ([facility]) [address] [facility], [place], [address], 11/30/2021 14:36:52 11/30/19 22 11/29/2021 CBC WITH DIFFE RENTI AL/PL ATELE T eos 2 % not estab. Not Available [facility] ([facility]) [address] [facility], [place], [address], 11/30/2021 14:36:52 11/30/19 22 11/29/2021 CBC WITH DIFFE RENTI AL/PL ATELE T basos 1 % not estab. Not Available [facility] ([facility]) [address] [place], [address], 11/30/2021 14:36:52 11/30/19 22 11/29/2021 CBC WITH DIFFE RENTI AL/PL ATELE T immature cells CHILD PROTECTIVE SERVICES SPECIALIST Not Available [facility] ([facility]) [address] [place], [address], 11/30/2021 14:36:52 11/30/19 22 11/29/2021 CBC WITH DIFFE RENTI AL/PL ATELE T neutrophils (absolute) 3.7 x10e3 /uL 1.4-7. 0 Not Available [facility] ([facility]) [address] [place], [address], 11/30/2021 14:36:52 11/30/19 22 11/29/2021 CBC WITH DIFFE RENTI AL/PL ATELE T lymphs (absolute) 1.7 x10e3 /uL 0.7-3. 1 Not Available [facility] ([facility]) [address] [facility], [place], [address], 11/30/2021 14:36:52 11/30/19 22 11/29/2021 CBC WITH DIFFE RENTI AL/PL ATELE T monocytes(ab solute) 0.6 x10e3 /uL 0.1-0. 9 Not Available [facility] ([facility]) [address] [facility], [place], [address], 11/30/2021 14:36:52 11/30/19 22 11/29/2021 CBC WITH DIFFE RENTI AL/PL ATELE T eos (absolute) 0.2 x10e3 /uL 0.0-0. 4 Not Available [facility] ([facility]) [address] [facility], [place], [address], 11/30/2021 14:36:52 11/30/19 22 11/29/2021 CBC WITH DIFFE RENTI AL/PL ATELE T baso (absolute) 0.1 x10e3 /uL 0.0-0. 2 Not Available [facility] ([facility]) [address] [facility], [place], [address], 11/30/2021 14:36:52 11/30/19 22 11/29/2021 CBC WITH DIFFE RENTI AL/PL ATELE T immature granulocytes 0 % not estab. Not Available [facility] ([facility]) [address] [place], [address], 11/30/2021 14:36:52 11/30/19 22 11/29/2021 CBC WITH DIFFE RENTI AL/PL ATELE T immature grans (abs) 0.0 x10e3 /uL 0.0-0. 1 Not Available [facility] ([facility]) [address] [facility], [place], [address], 11/30/2021 14:36:52 11/30/19 22 11/29/2021 CBC WITH DIFFE RENTI AL/PL ATELE T NRBC CHILD PROTECTIVE SERVICES SPECIALIST Not Available [facility] ([facility]) [address] [facility], [place], [address], 11/30/2021 14:36:52 11/30/19 22 11/29/2021 CBC WITH DIFFE RENTI AL/PL ATELE T hematology comments: CHILD PROTECTIVE SERVICES SPECIALIST Not Available [facility] ([facility]) [address] [facility], [place], [address], 11/30/2021 14:36:52 11/30/19 22 11/29/2021 COMP. METAB OLIC PANEL (14) glucose 131 mg/dL 65-99 above high normal Not Available [facility] ([facility]) [address] [facility], [place], [address], 11/30/2021 14:36:52 11/30/19 22 11/29/2021 COMP. METAB OLIC PANEL (14) BUN 14 mg/dL 8-27 Not Available [facility] ([facility]) [address] [place], [address], 11/30/2021 14:36:52 11/30/19 22 11/29/2021 COMP. METAB OLIC PANEL (14) creatinine 0.99 mg/dL 0.57-1 .00 Not Available [facility] ([facility]) [address] [facility], [place], [address], 11/30/2021 14:36:52 11/30/19 22 11/29/2021 COMP. METAB OLIC PANEL (14) eGFR 59 mL/mi n/1.7 3 >59 below low normal Not Available [facility] ([facility]) [address] [place], [address], 11/30/2021 14:36:52 11/30/19 22 11/29/2021 COMP. METAB OLIC PANEL (14) BUN/creatini ne ratio 14 12-28 Not Available [facility] ([facility]) [address] [facility] [place], [address], 11/30/2021 14:36:52 11/30/19 22 11/29/2021 COMP. METAB OLIC PANEL (14) sodium 139 mmol/ L 134-14 4 Not Available [facility] ([facility]) [address] [place], [address], 11/30/2021 14:36:52 11/30/19 22 11/29/2021 COMP. METAB OLIC PANEL (14) potassium 5.0 mmol/ L 3.5-5. 2 Not Available [facility] ([facility]) [address] [place], [address], 11/30/2021 14:36:52 11/30/19 22 11/29/2021 COMP. METAB OLIC PANEL (14) chloride 102 mmol/ L 96-106 Not Available [facility] ([facility]) [address] [facility] [place], [address], 11/30/2021 14:36:52 11/30/19 22 11/29/2021 COMP. METAB OLIC PANEL (14) carbon dioxide, total 23 mmol/ L 20-29 Not Available [facility] ([facility]) [address] [facility] [place], [address], 11/30/2021 14:36:52 11/30/19 22 11/29/2021 COMP. METAB OLIC PANEL (14) calcium 9.2 mg/dL 8.7-10 .3 Not Available [facility] ([facility]) [address] [facility] [place], [address], 11/30/2021 14:36:52 11/30/19 22 11/29/2021 COMP. METAB OLIC PANEL (14) protein, total 6.9 g/dL 6.0-8. 5 Not Available [facility] ([facility]) [address] [facility] [place], [address], 11/30/2021 14:36:52 11/30/19 22 11/29/2021 COMP. METAB OLIC PANEL (14) albumin 4.3 g/dL 3.7-4. 7 Not Available [facility] ([facility]) [address] [facility], [place], [address], 11/30/2021 14:36:52 11/30/19 22 11/29/2021 COMP. METAB OLIC PANEL (14) globulin, total 2.6 g/dL 1.5-4. 5 Not Available [facility] ([facility]) [address] [facility], [place], [address], 11/30/2021 14:36:52 11/30/19 22 11/29/2021 COMP. METAB OLIC PANEL (14) A/G ratio 1.7 1.2-2. 2 Not Available [facility] ([facility]) [address] [facility], [place], [address], 11/30/2021 14:36:52 11/30/19 22 11/29/2021 COMP. METAB OLIC PANEL (14) bilirubin, total 0.2 mg/dL 0.0-1. 2 Not Available [facility] ([facility]) [address] [facility], [place], [address], 11/30/2021 14:36:52 11/30/19 22 11/29/2021 COMP. METAB OLIC PANEL (14) alkaline phosphatase 76 IU/L 44-121 Not Available [facility] ([facility]) [address] [facility], [place], [address], 11/30/2021 14:36:52 11/30/19 22 11/29/2021 COMP. METAB OLIC PANEL (14) AST (SGOT) 13 IU/L 0-40 Not Available [facility] ([facility]) [address] [facility], [place], [address], 11/30/2021 14:36:52 11/30/19 22 11/29/2021 COMP. METAB OLIC PANEL (14) ALT (SGPT) 15 IU/L 0-32 Not Available [facility] ([facility]) [address] [facility] [place], [address], 11/30/2021 14:36:52 11/30/19 22 11/29/2021 LIPID PANEL cholesterol, total 181 mg/dL 100-19 9 Not Available [facility] ([facility]) [address] [facility] [place], [address], 11/30/2021 14:36:53 11/30/19 22 11/29/2021 LIPID PANEL triglyceride s 194 mg/dL 0-149 above high normal Not Available [facility] ([facility]) [address] [facility] [place], [address], 11/30/2021 14:36:53 11/30/19 22 11/29/2021 LIPID PANEL HDL cholesterol 48 mg/dL >39 Not Available [facility] ([facility]) [address] [facility] [place], [address], 11/30/2021 14:36:53 11/30/19 22 11/29/2021 LIPID PANEL VLDL cholesterol jamison 33 mg/dL 5-40 Not Available [facility] ([facility]) [address] [facility] [place], [address], 11/30/2021 14:36:53 11/30/19 22 11/29/2021 LIPID PANEL LDL chol calc ([facility]) 100 mg/dL 0-99 above high normal Not Available [facility] ([facility]) [address] [facility] [place], [address], 11/30/2021 14:36:53 11/30/19 22 11/29/2021 LIPID PANEL comment: CHILD PROTECTIVE SERVICES SPECIALIST Not Available [facility] ([facility]) [address] [facility] [place], [address], 11/30/2021 14:36:53 11/30/19 22 11/30/2021 VITAM IN D, 1,25 + 25-HY DROXY calcitriol(1 ,25 di-oh vit D) 50.6 pg/mL 24.8-8 1.5 Ple ase note refer ence inter sara meyer e Not Available [facility] ([facility]) [address] [facility], [place], [address], 11/30/2021 14:36:53 11/30/19 22 11/30/2021 VITAM IN [...] Medic ine). 2010. Dieta ry refer rayshawn rodrgíuez es for calci um and D. Monica rich [place]: [facility] . 2. Fransisco whitley [place], Jhon hameed [place], Anup off-F errar i YOUNGBLOOD, et al. Evalu ation , treat ment, and preve ntion of vitam in D defic iency : an Endoc rine Socie ty clini jamison pract ice guide line. JCEM. 2010; 96(7) :1911 -30. Not Available [facility] ([facility]) [address] [facility], [place], [address], 11/30/2021 14:36:53 02/23/20 22 02/23/2022 CBC WITH PLATE LET AND DIFFE RENTI AL WBC 7.9 K/uL 3.8-11 .5 Not Available [facility]) [address] [facility], [place], [address], 02/23/2022 09:24:18 02/23/20 22 02/23/2022 CBC WITH PLATE LET AND DIFFE RENTI AL red blood cell count (RBC) 4.67 M/mm3 3.60-5 .30 Not Available [facility] ([facility]) [address] [place] [address] [address], [place], [address], 02/23/2022 09:24:18 02/23/20 22 02/23/2022 CBC WITH PLATE LET AND DIFFE RENTI AL hemoglobin (HGB) 13.1 gm/dL 11.5-1 5.5 Not Available [facility] ([facility]) [address] [place] [address] [address], [place], [address], 02/23/2022 09:24:18 02/23/20 22 02/23/2022 CBC WITH PLATE LET AND DIFFE RENTI AL hematocrit (HCT) 39.1 % 35.2-4 6.4 Not Available [facility] ([facility]) [address] [place] [address] [address], [place], [address], 02/23/2022 09:24:18 02/23/20 22 02/23/2022 CBC WITH PLATE LET AND DIFFE RENTI AL MCV 83.7 fL 79.0-9 9.0 Not Available [facility] ([facility]) [address] [place] [address] [address], [place], [address], 02/23/2022 09:24:18 02/23/20 22 02/23/2022 CBC WITH PLATE LET AND DIFFE RENTI AL MCH 28.1 pg 26.9-3 5.0 Not Available [facility]) [address] [place] [address] [address], [place], [address], 02/23/2022 09:24:18 02/23/20 22 02/23/2022 CBC WITH PLATE LET AND DIFFE RENTI AL MCHC 33.5 g/dL 30.4-3 4.8 Not Available [facility] ([facility]) [facility] [facility] [address], [place], [address], 02/23/2022 09:24:18 02/23/20 22 02/23/2022 CBC WITH PLATE LET AND DIFFE RENTI AL RDW NM fL 38.6-5 3.8 Unabl e to repor t RDW due to dimor phic red cell popul ation Not Available [facility] ([facility]) [facility] [address], [place], [address], 02/23/2022 09:24:18 02/23/20 22 02/23/2022 CBC WITH PLATE LET AND DIFFE RENTI AL platelet count 332 K/cum m 137-39 7 Not Available [facility] ([facility]) [address] [place] [address] [address], [place], [address], 02/23/2022 09:24:18 02/23/20 22 02/23/2022 MANUA L DIFFE RENTI AL REVIE W/COU NT absolute immature granulocyte manual 0.00 K/uL 0.00-0 .03 Not Available [facility] ([facility]) [facility] [address], [place], [address], 02/23/2022 09:24:20 02/23/20 22 02/23/2022 MANUA L DIFFE RENTI AL REVIE W/COU NT absolute basophil count manual 0.1 K/uL 0.0-0. 1 Not Available [facility] ([facility]) [address] [place] [address] [address], [place], [address], 02/23/2022 09:24:20 02/23/20 22 02/23/2022 MANUA L DIFFE RENTI AL REVIE W/COU NT absolute eosinophil count manual 0.2 K/uL 0.0-0. 6 Not Available [facility] ([facility]) [address] [facility], [place], [address], 02/23/2022 09:24:20 02/23/20 22 02/23/2022 MANUA L DIFFE RENTI AL REVIE W/COU NT absolute monocyte count manual 0.8 K/uL 0.3-1. 0 Not Available [facility] ([facility]) [address] [place] [address] [address], [place], [address], 02/23/2022 09:24:20 02/23/20 22 02/23/2022 MANUA L DIFFE RENTI AL REVIE W/COU NT absolute lymphocyte count manual 3.0 K/uL 0.9-3. 6 Not Available [facility] ([facility]) [facility] [address], [place], [address], 02/23/2022 09:24:20 02/23/20 22 02/23/2022 MANUA L DIFFE RENTI AL REVIE W/COU NT absolute neutrophil count manual 3.9 K/uL 2.0-8. 2 Not Available [facility] ([facility]) [address] [place] [address] [address], [place], [address], 02/23/2022 09:24:20 02/23/20 22 02/23/2022 MANUA L DIFFE RENTI AL REVIE W/COU NT microcytosis SLIGHT Not Available [facility] ([facility]) [address] [place] [address] Dr [address], [place], [address], 02/23/2022 09:24:20 02/23/20 22 02/23/2022 MANUA L DIFFE RENTI AL REVIE W/COU NT anisocytosis MODERA TE Not Available [facility] ([facility]) [address] [place] [address] [address], [place], [address], 02/23/2022 09:24:20 02/23/20 22 02/23/2022 MANUA L DIFFE RENTI AL REVIE W/COU NT poikilocytos is SLIGHT Not Available [facility] [address] [place] [address] [address], [place], [address], 02/23/2022 09:24:20 02/23/20 22 02/23/2022 MANUA L DIFFE RENTI AL REVIE W/COU NT fragmented cells FEW Not Available [facility]) [address] [place] [address] [address], [place], [address], 02/23/2022 09:24:20 02/23/20 22 02/23/2022 MANUA L DIFFE RENTI AL REVIE W/COU NT ovalocytes FEW Not Available [facility]) [address] [place] [address] Dr [address], [place], [address], 02/23/2022 09:24:20 02/23/20 22 02/23/2022 MANUA L DIFFE RENTI AL REVIE W/COU NT platelet slide review NORMAL Plate let clump s noted . True plate let count may be highe r than repor esvin. Not Available [facility] [address] [place] [address] [address], [place], [address], 02/23/2022 09:24:20 02/23/20 22 02/23/2022 MANUA L DIFFE RENTI AL REVIE W/COU NT neutrophils- manual 49 % 41-77 Not Available [facility]) [address] [place] [address] [address], [place], [address], 02/23/2022 09:24:20 02/23/20 22 02/23/2022 MANUA L DIFFE RENTI AL REVIE W/COU NT lymphocytes manual 30 % 14-48 Not Available [facility] ([facility]) [address] [place] [address] [address], [place], [address], 02/23/2022 09:24:20 02/23/20 22 02/23/2022 MANUA L DIFFE RENTI AL REVIE W/COU NT monocytes manual 10 % 4-13 Not Available [facility] ([facility]) [address] [place] [address] [address], [place], [address], 02/23/2022 09:24:20 02/23/20 22 02/23/2022 MANUA L DIFFE RENTI AL REVIE W/COU NT eosinophils manual 2 % 0-8 Not Available [facility] [facility] ([facility]) [address] [place] [address] Dr Carter, [place], [address], 02/23/2022 09:24:20 02/23/20 22 02/23/2022 MANUA L DIFFE RENTI AL REVIE W/COU NT basophils manual 1 % 0-1 Not Available [facility]) [address] [place] [address] Dr Carter, [place], [address], 02/23/2022 09:24:20 02/23/20 22 02/23/2022 MANUA L DIFFE RENTI AL REVIE W/COU NT atypical lymphocytes 8 % 0-12 Not Available [facility] ([facility]) [address] [place] [address] Dr Carter, [place], [address], 02/23/2022 09:24:20 02/23/20 22 02/23/2022 COMPR EHENS DARYN METAB OLIC PANEL (CMP) sodium 141 mEq/L 135-14 5 Not Available [facility]) [address] [place] [address] Dr Carter, [place], [address], 02/23/2022 09:24:20 02/23/20 22 02/23/2022 COMPR EHENS DARYN METAB OLIC PANEL (CMP) potassium 4.3 mEq/L 3.5-5. 3 Not Available [facility]) [address] [place] [address] Dr Carter, [place], [address], 02/23/2022 09:24:20 02/23/20 22 02/23/2022 COMPR EHENS DARYN METAB OLIC PANEL (CMP) chloride 104 mEq/L 97-108 Not Available [facility]) [address] [place] [address] Dr Carter, [place], [address], 02/23/2022 09:24:20 02/23/20 22 02/23/2022 COMPR EHENS DARYN METAB OLIC PANEL (CMP) CO2 25 mEq/L 22-32 Not Available [facility] [address] [place] [address] Dr Carter, [place], [address], 02/23/2022 09:24:20 02/23/20 22 02/23/2022 COMPR EHENS DARYN METAB OLIC PANEL (CMP) glucose 94 mg/dL 65-99 Not Available [facility]) [address] [place] [address] Dr Carter, [place], [address], 02/23/2022 09:24:20 02/23/20 22 02/23/2022 COMPR EHENS DARYN METAB OLIC PANEL (CMP) BUN 19 mg/dL 8-23 Not Available [facility]) [address] [place] [address] Dr Carter, [place], [address], 02/23/2022 09:24:20 02/23/20 22 02/23/2022 COMPR EHENS DARYN METAB OLIC PANEL (CMP) creatinine 0.84 mg/dL 0.50-1 .00 Not Available [facility] ([facility]) [address] [place] [address] Dr Carter, [place], [address], 02/23/2022 09:24:20 02/23/20 22 02/23/2022 COMPR EHENS DARYN METAB OLIC PANEL (CMP) calcium 9.5 mg/dL 8.6-10 .4 Not Available [facility]) [address] [place] [address] Dr Carter, [place], [address], 02/23/2022 09:24:20 02/23/20 22 02/23/2022 COMPR EHENS DARYN METAB OLIC PANEL (CMP) protein 6.8 g/dL 6.0-8. 3 Not Available [facility]) [address] [place] [address] Dr Carter, [place], [address], 02/23/2022 09:24:20 02/23/20 22 02/23/2022 COMPR EHENS DARYN METAB OLIC PANEL (CMP) albumin 4.2 g/dL 3.5-5. 3 Not Available [facility]) [address] [place] [address] Dr Carter, [place], [address], 02/23/2022 09:24:20 02/23/20 22 02/23/2022 COMPR EHENS DARYN METAB OLIC PANEL (CMP) alkaline phosphatase 64 IU/L 35-121 Not Available [facility] [address] [place] [address] Dr Carter, [place], [address], 02/23/2022 09:24:20 02/23/20 22 02/23/2022 COMPR EHENS DARYN METAB OLIC PANEL (CMP) ALT (SGPT) 21 IU/L <5-47 Not Available [facility]) [address] [place] [address] Dr Carter, [place], [address], 02/23/2022 09:24:20 02/23/20 22 02/23/2022 COMPR EHENS DARYN METAB OLIC PANEL (CMP) AST (SGOT) 15 IU/L <5-40 Not Available [facility]) [address] [place] [address] Dr Carter, [place], [address], 02/23/2022 09:24:20 02/23/20 22 02/23/2022 COMPR EHENS DARYN METAB OLIC PANEL (CMP) bilirubin, total 0.2 mg/dL <0.2-1 .2 Not Available [facility]) [address] [place] [address] Dr Carter, [place], [address], 02/23/2022 09:24:20 02/23/20 22 02/23/2022 COMPR EHENS DARYN METAB OLIC PANEL (CMP) A/G ratio 1.6 mg/dL 1.1-2. 5 Not Available [facility] [address] [place] [address] Dr Carter, [place], [address], 02/23/2022 09:24:20 02/23/20 22 02/23/2022 COMPR EHENS DARYN METAB OLIC PANEL (CMP) estimated GFR (black) 77 mL/mi n/1.7 3m2 >59 Not Available [facility] [address] [place] [address] Dr Carter, [place], [address], 02/23/2022 09:24:20 02/23/20 22 02/23/2022 COMPR EHENS [...] muscl e mass or diet. Not Available [facility] [address] [place] [address] Dr Carter, [place], [address], 02/23/2022 09:24:20 02/23/20 22 02/23/2022 PERCE NT SATUR ATION WITH IRON AND IBC iron 80 ug/dL 37-145 Not Available [facility] [address] [place] [address] Dr Carter, [place], [address], 02/23/2022 09:24:21 02/23/20 22 02/23/2022 PERCE NT SATUR ATION WITH IRON AND IBC iron binding cap 386 ug/dL 250-45 0 Not Available [facility] [address] [place] [address] Dr Carter, [place], [address], 02/23/2022 09:24:21 02/23/20 22 02/23/2022 PERCE NT SATUR ATION WITH IRON AND IBC percent saturation 21 % 15-50 Not Available [facility]) [address] [place] [address] Dr Carter, [place], [address], 02/23/2022 09:24:21 02/23/20 22 02/23/2022 BELEM TIN ferritin 36.5 NG/mL 13.0-3 01.0 Not Available [facility] [address] [place] [address] Dr Carter, [place], [address], 02/23/2022 09:24:22 02/23/20 22 02/23/2022 HEMOG LOBIN [...] LLC) [address], [place], [address], 02/23/2022 09:24:23 02/23/20 22 02/23/2022 HEMOG LOBIN A1C estimated average glucose 123 mg/dL [place] [facility] Gluco se is calcu lated using the equat ion AG = (28.7 x HgbA1 c) - 46.7 based on the guide lines estab lisfredy d by the ADA. Not Available [facility] [employer] [address], [place], [address], 02/23/2022 09:24:23 10/10/19 21 09/21/2020 CT, angio [...] ast No observ ation record ed. [email or web address] [facility] [address] [place], [place] [address], [place], [address], 07/09/2021 10:53:42 04/20/20 22 04/20/2022 DEXA, axial skele ton + verte bral fract ure asses sment No observ ation record ed. [email or web address] [facility] (Administrati on) [address], [place], [address], 04/25/2022 14:32:46 Result Notes None recorded. Problems Name Problem SNOMED Code Status Onset Date Resolution Date Notes Provider Name and Address Organization Details Recorded Time Gastroesophag eal reflux disease without esophagitis 275929975 Active 2018 Not Available [facility] 14:09:48 Anxiety 48966087 Active 2018 Not Available [facility] 14:09:48 Diarrhea 14995145 Active 2018 Not Available [facility] 14:09:48 Hemorrhoids 94461786 Active 2018 Not Available [facility] 14:09:48 Hyperlipidemi a 44696585 Active 2018 Not Available [facility] 14:09:48 Hypertensive disorder 58257266 Active 2018 Not Available [facility] 14:09:48 Prolapsed lumbar intervertebra l disc 766117625 Active 2018 Not Available [facility] 14:09:48 Prediabetes 979317438 Active 2018 Not Available [facility] 14:09:48 Problem Notes None recorded. Procedures Surgical History Date Name Laterality Status Provider Name and Address Organization Details Recorded Time 01/14/20 21 Most Recent Mammogram completed FEDERICO TORRES [place] - [facility] [place] 03/08/2021 13:55:22 01/16/20 19 mammography completed Julia Haridng [facility] - [facility] 04/03/2019 13:18:13 Hysterectomy completed Atiya Dior MD [address] [employer] [address] [employer] [address], [place], [address], [facility] - [facility] 04/03/2019 10:04:22 Appendectomy completed Atiya Dior MD [address], [place], [address], [facility] - [facility], [place] 04/03/2019 10:04:33 Tubal Ligation completed Atiya Dior MD [address], [place], [address], [facility] - [facility], [place] 04/03/2019 10:04:42 Tonsillectomy completed Atiya Dior MD [address], [place], [address], [facility] - [facility], [place] 04/03/2019 10:04:53 Cholecystectomy completed Atiya Dior MD [address], [place], [address], [facility], [place] 04/03/2019 10:05:00 Imaging Results Imaging Date Name Status LastModified by Organization Details LastModified Time 09/21/2020 CT, angiogram, chest, w/wo contrast completed [facility] Information not available 10/09/2020 08:28:47 09/24/2020 electrocardiogram completed [facility] Informa tion not available 10/09/2020 08:28:47 07/08/2021 MRI, lumbar spine, w/wo contrast completed [email or web address] Information not available 07/09/2021 11:06:23 07/07/2021 MRI, lumbar spine, w/o contrast completed [email or web address] [facility] [address], [place], [address], 07/09/2021 10:53:42 04/20/2022 DEXA, axial skeleton + vertebral fracture [facility] [place] [address] (Administration ) [address] [place], [address], 04/25/2022 14:32:46 Procedure Notes None recorded. Medical Equipment None Reported. Allergies Allergen ID Allergen Name Allergen Category Reaction Reaction Severity Criticality Documentation Date Start Date Code Code System Note Provider Name and Address Organization Details Recorded Time 179 codeine medicatio n Not available Not available Not available 04/03/2019 2670 RxNorm Atiya quarles MD [address] [facility], [place], [address], [facility], [place] 9 10:01:14 180 acetamino phen / oxycodone medicatio n Not available Not available Not available 04/03/2019 11603 3 RxNorm Atiya quarles MD [address], [place], [address], [facility], [place] 9 10:01:20 Medications Name Sig Start Date [...] 1 154.94 cm 97.8 [degF] 40.8 kg/m2 27085.9 5 g 94 /min 16 /min 95 % 95 % 143 mm[Hg] 75 mm[Hg] FEDERICO TORRES [facility], [place] 1 13:51:43 Date Recorded Body height Oxygen saturation Oxygen saturation in Arterial blood by Pulse oximetry Respiratory rate Heart rate Systolic blood pressure Diastolic blood pressure Provider Name and Address Organization Details Last Updated DateTime 2 154.94 cm 96 % 96 % 18 /min 103 /min 157 mm[Hg] 81 mm[Hg] FEDERICO TORRES [facility], [place] 2 13:21:21 Date Recorded Body temperature Body mass index (BMI) Body weight Provider Name and Address Organization Details Last Updated DateTime 08/23/2021 97.4 [degF] 40.3 kg/m2 71503.61 g SHARONA HIGGINS NP-C [address] [facility] [address] [place] [address], [address], [facility], [place] 08/23/2021 12:58:22 Date Recorded Body height Body temperature Body mass index (BMI) Body weight Respiratory rate Oxygen saturation Oxygen saturation in Arterial blood by Pulse oximetry Heart rate Systolic blood pressure Diastolic blood pressure Provider Name and Address Organization Details Last Updated DateTime 2 154.94 cm 97.7 [degF] 40.2 kg/m2 15255.1 g 16 /min 96 % 96 % 93 /min 136 mm[Hg] 85 mm[Hg] CARMELLA STEINBERG [facility], [place] 2 12:41:15 Date Recorded Body height Heart rate Respiratory rate Oxygen saturation Oxygen saturation in Arterial blood by Pulse oximetry Body temperature Body mass index (BMI) Body weight Systolic blood pressure Diastolic blood pressure Provider Name and Address Organization Details Last Updated DateTime 1 154.94 cm 90 /min 16 /min 96 % 96 % 97.5 [degF] 39 kg/m2 99082.1 8 g 149 mm[Hg] 78 mm[Hg] Mary Bhagat [facility], [place] 1 12:33:24 Date Recorded Body height Body temperature Heart rate Respiratory rate Oxygen saturation Oxygen saturation in Arterial blood by Pulse oximetry Body mass index (BMI) Body weight Systolic blood pressure Diastolic blood pressure Provider Name and Address Organization Details Last Updated DateTime 1 154.94 cm 98 [degF] 101 /min 18 /min 98 % 98 % 38.1 kg/m2 92738.2 5 g 125 mm[Hg] 77 mm[Hg] Mary Bhagat [facility], [place] 1 11:58:26 Social History Question Answer Notes LastModified by Organizat ion Details LastModified Time Tobacco Smoking Status Former Smoker Atiya Dior MD [address] [facility] [address] [place] [address], [address], [place] 04/03/2019 10:06:33 Do You Have An Advance Directive? Yes [email or web address] Information not available 04/03/2019 What Is Your Level Of Caffeine Consumption? Occasional [email or web address] Information not available 04/03/2019 What Type Of Diet Are You Following? REGULAR Information not available 03/08/2021 What Is The Highest Grade Or Level Of School You Have Completed Or The Highest Degree You Have Received? [id number] Information not available 03/08/2021 When Did You Quit Smoking? 16+yearssincel astcigarette Information not available 03/08/2021 Live Alone Or With Others? Alone Information not available 04/03/2019 What Was The Date Of Your Most Recent Tobacco Screening? 03/08/2021 Information not available 03/08/2021 How Many Children Do You Have? 2 [email or web address] Information not available 04/03/2019 What Is Your Relationship Status? Information not available 03/08/2021 At What Age Did You Start Smoking Tobacco? 16 Information not available 03/08/2021 General Stress Level Low Information not available 04/03/2019 How Many Years Have You Smoked Tobacco? 36 Information not available 03/08/2021 Sex: Unknown Functional Status Question Answer Note LastModified by Organizat ion Details LastModified Time Do you use any illicit or recreational drugs? No Information not available 03/08/2021 What is your level of alcohol consumption? None [email or web address] Information not available 04/03/2019 Are you currently employed? No Information not available 03/08/2021 Are you able to walk? YESWOREST Information not available 03/08/2021 Are you able to care for yourself? Yes [email or web address] Information not available 04/03/2019 What is your occupation? retired [email or web address] Information not available 04/03/2019 What is your [...] split virus, quadrivalent, preservative 9 [place]/09/[place] 12:31:23 zoster recombinant 0 [place] 10/09/2020 12:31:23 Influenza, split virus, quadrivalent, preservative 0 flako [place] 10/09/2020 12:31:23 zoster recombinant 1 [place] 10/09/2020 12:31:23 COVID-19, mRNA, LNP-S, PF, 30 mcg/0.3 mL dose 1 completed HAYDEN Morales - [facility], [place] 03/22/2021 08:30:16 Past Encounters Encounter ID Performer Location Encounter Start Date Encounter Closed Date Diagnosis/Indication Diagnosis SNOMED-CT Code Diagnosis ICD10 Code Diagnosis Note [id number] Atiya Dior MD Main Office [address] [place] [id number] 1 04/03/2019 13:02:56 04/03/2019 13:53:59 Gastroesophageal reflux disease without esophagitis 699276722 K21.9 pt having reflux every day and using tums advised pt to try pepcid - will give script avoid dietary triggers weight loss advised Prolapsed lumbar intervertebral disc 642320328 M51.[address] Joya - getting shots every 90 days. debating surgery. Screening for malignant neoplasm of colon 473822782 Z12.11 pt has always done colonoscop y that was normal. she lives alone and getting to and from a colonoscop y would be difficult. will order cologuard. Anxiety 29804252 F41.9 stable on current meds. will continue current care. Hypertensive disorder 38 426015 I10 BP goal < 150/90 continue current care low salt diet and daily exercise recommende d Monitor BP at home and Return to care if elevated above 150/90 >50% of the time. Hyperlipidemia 60489331 E78.5 stable on current meds. will continue current care - weight loss advised and check labs. Prediabetes 794387660 R7 3.03 last A1c was 6.3 advised lifestyle changes [id number] Sukhwinder Vazquez MD Main Office [address] [place] [id number] 1 07/04/2019 13:53:17 07/04/2019 15:09:10 Postural dizziness 296374471 R42 -suspect orthostati c in nature as only occurs when standing -BP normal however HR goes from 92 to 110 upon standing and positive dizziness -no dizziness/ nystagmus with head thrust -check BMP, hgb -stop HCTZ and continue olmsartan only -orthostat ic dizziness education given Tachycardia 8465363 R00. 0 suspect all orthostati c related, however resting still in 90's is normal for her. -standing >110 -EKG shows normal rhythm Low back pain 927781402 M54.5 Needs to have back surgery and requires clearance. -no exertional or non exertional chest pain -exercises 3 times week -Intermedi ate risk surgery with 4 mets , no clinical risk factors -BMP, cbc normal can proceed to surgery without further testing - medically optimized for surgery. -EKG shows NSR at rest Pre-surger y evaluation 342578814 Z01.818 pt needs back surgery clearance. labs and EKG performed and were WNL. medically optimized for surgery. [id number] Atiya Dior MD Main Office [facility] [address] [place] [id number] 1 07/25/2019 13:21:07 07/25/2019 13:47:25 Hypertensive disorder 09658274 I10 BP goal < 150/90 will increase olmesartan to 40mg daily to help with BP low salt diet and daily exercise recommende d Monitor BP at home and Return to care if elevated above 150/90 >50% of the time. [id number] BARBARA MACIAS Main Office [address] [place] [id number] 1 04/21/2020 11:49:49 04/21/2020 12:38:15 Anxiety 57329184 F41.9 Patient states that covid and social distancing from friends/fa elba has been rough for her lately. Patient states she is relying on family more and doing well on her current medication . Patient encouraged to continue to stay safe while interactin g with her neighbors and continue to stay in touch with family members. [facility]. Gastroesop hageal reflux disease without esophagitis 390199883 K21.9 Patient advised to avoid trigger foods, such as chocolate and pasta, and stay hydrated. Patient will start protonix today and monitor symptoms. Diarrhea 55711238 R19.7 Discussed the benefits of a daily probiotic. Patient will start taking this week. Encouraged patient to stay hydrated and maintain healthy diet while avoiding any trigger foods such as diary. [id number] Atiya Dior MD Main Office [facility] [address] [place] [address] [id number] 1 10/09/2020 11:56:00 10/09/2020 12:56:01 Spinal stenosis of lumbar region 31182534 M48.061 notes, labs and imaging from hospital admission reviewed. S/p surgery and doing well post op Keep up f/u with surgeon natasha removed Hypertensive disorder 38 271342 I10 BP goal < 150/90 continue olmesartan 40mg daily will add amlodipine 2.5 - 5mg daily - SE of medication discussed low salt diet and daily exercise recommende d Monitor BP at home and Return to care if elevated above 150/90 >50% of the time. Sinus tachycardia 215042 01 R00.0 EKG from hospital admission and labs reviewed suspect multifacto rial - pain, anxiety will check stress test but doubt cardiac as cause. [id number] Atiya Dior MD Main Office [address] [place] [id number] 1 11/06/2020 11:47:01 11/06/2020 12:32:19 Hypertensive disorder 28602311 I10 BP goal < 150/90 continue olmesartan 40mg daily will add amlodipine 2.5 - 5mg daily - SE of medication discussed low salt diet and daily exercise recommende d Monitor BP at home and Return to care if elevated above 150/90 >50% of the time. Anxiety 52251681 F41.9 stable on current meds. will continue current care. Gastroesop hageal reflux disease without esophagitis 869099418 K21.9 doing well on PPI avoid dietary triggers weight loss advised [id number] KARINA HIGUERA Main Office [address] [place] [id number] 1 03/08/2021 13:29:23 03/08/2021 14:30:48 Hypertensive disorder 38267074 I10 BP log reviewed - will stop amlodipine - has only been taking 1/2 of her 5 mg amlodipine pill daily BP goal < 150/90 low salt diet and daily exercise recommende d Monitor BP at home and Return to care if elevated above 150/90 >50% of the time. Anxiety 06372040 F41.9 doing well on celexa, will renew [id number] Atiya Dior MD Main Office [address] [place] [id number] 1 08/23/2021 12:28:27 08/23/2021 13:25:06 Seasonal allergic rhinitis 720327216 J30.2 medication - advised flonase and anti-hista mine, OTC cough syrup or honey supportive care otherwises uspect that dizziness may be coming from congestion related to allergies Hypertensive disorder 38 976144 I10 BP goal < 140/90 Currently at goal and doing well on meds with no SE. Will continue current care. Low salt diet and daily exercise encouraged Advised to monitor BP at home and to RTC if >140/90 > 50% of the time Hyperlipidemia 91931996 E78.5 will update fasting labs Fatigue 96164180 R53.83 will check thyroid labs Vitamin D deficiency 347 66949 E55.9 currently supplement ing vitamin d3 - will update labs Overactive urinary bladder 725272532 N32.81 pt reports trouble sleeping related to getting up to use the bathroom every 2 hours at night - will start oxybutynin ER 10 mg tablet [id number] Atiya Dior MD Main Office [address] [facility] [address] [place] [address] [id number] 1 02/22/2022 12:32:36 02/22/2022 13:23:59 Anxiety 82126410 F41.9 doing well on celexa, will renew Hypertensive disorder 38 349543 I10 BP goal < 140/90 Currently at goal and doing well on meds with no SE. Will continue current care. Low salt diet and daily exercise encouraged Advised to monitor BP at home and to RTC if >140/90 > 50% of the time Gastroesop hageal reflux disease without esophagitis 333442877 K21.9 stable on PPI. avoid dietary triggers Iron defic iency anemia 64505361 D50.9 last H/H was 9.6she is taking iron dailywill recheck labsmay need colonoscop y - denies bleeding Impaired g lucose tolerance 2530024 R73.02 BS was 131 on last set of labswill check A1c Vertigo 710419529 R42 prn use of meclizinew arning signs reviewed - ED if they present Menopausal and postmenopausal disorders 551941456 N95.9 Health Concerns Section Related Observation LastModified by Organization Detai ls LastModified Time None Recorded Concern Status LastModified by Organization Details LastModified Time None Recorded Advance Directives Directive Y: Payers Encounter Date Sequence Insurance Name Policy Number Policy [place] Covered Member ID [place] Member ID Guarantor Name 10/09/2020 1 [place] COURT[place] Russ Nima [id number] Yahaira Nima 10/09/2020 3 [place] [employer] (MEDICARE SUPPLEMENT) [id number] Yahaira Nima [id number] Yahaira Nima 11/06/2020 1 [place] COURTNEY Russ Nima [id number] 11/06/2020 3 [place]: [employer] ROOM [employer] LIFE (MEDICARE SUPPLEMENT) [id number] [address] [place] [id number] Yahaira Nima 03/08/2021 1 MEDICARE B-[place]: COURTNEY Syed J Nima [id number] [address] 03/08/2021 3 [place] [employer] ROOM [employer]ID LIFE (MEDICARE SUPPLEMENT) [id number] [address] [id number] Yahaira Nima 08/23/2021 1 MEDICARE B-[place]: CRISTIANOETTAfia Syed J Nima [id number] 76 Yahaira Nima 08/23/2021 3 [place]: [employer] ROOM [employer]ID LIFE (MEDICARE SUPPLEMENT) [id number] Yahaira Nima [id number] Yahaira Nima 02/22/2022 1 MEDICARE B-[place]: CRISTIANOETTAfia Russ Nima [id number] 76 Yahaira Nima 02/22/2022 3 [place]: [employer] RO[employer] LIFE (MEDICARE SUPPLEMENT) [id number] Yahaira Nima [id number] Notes Date Note Type Note Provider [...] is better now. Atiya Dior MD [address], [place], [address], [facility], [place] 10/12/2020 10:55:40 11/06/2020 text/html Follow up, dl cedeno had recent surgery and is still healing from back surgery by Dr. Talley. Patient has been tachycardiac since surgery which has improved on its own. She says she is having trouble with pain in bilateral upper thighs with walking. She is only taking Tylenol for pain. she did not try propranolol. Atyia Dior MD [address], [place], [address], [facility], [place] 11/10/2020 17:09:55 03/08/2021 text/html Here for f/u on blood pressure. Reports that even taking half of the 5 mg amlodipine tablet she is feeling too dizzy and fatigued. KARINA HIGUERA [address], [place], [address], [facility], [place] 03/08/2021 19:35:15 08/23/2021 text/html Here to follow u p regarding blood pressure. She has brought her log with her today. BPs are averaging 120s/60s. Her heart rate is usually elevated in the 90s-100s. Has had some dizziness but reports she thinks its allergy related. Pt does have h/o vertigo. KARINA HIGUERA [address], [place], [address], [facility], [place] 08/23/2021 13:48:40 02/22/2022 text/html She has been [...] up in the am. Atiya Dior MD [address] [place] [address], [address] - [facility], [place] 02/25/2022 05:13:33 OBGyn Episode No OBEpisode recorded.
--- OUTSIDE RECORDS SUMMARY | 2024-10-02 16:09 | XMS_ITS | Patient Health Record ---
Author Organization [facility] Address [address] [place] [address] [address] [place] [address] Care Team Providers Care Patch Driller Name Role Phone Karyna Clarke Unavailable [phone] Reason For Referral No Information Medications Medication SIG (Take, Route, Frequency, Duration) Notes Start Date End Date Status hydroCHLOROthiazide 1 ORAL daily for -3 [facility] 09/24/2012 Active Citalopram Hydrobromide 20MG ORAL for - [facility] 4 Active CeleBREX 200MG ORAL for -3 [facility] 10/15/2013 Ac tive Vitamin E 200UNITS 1 ORAL daily for -3 [facility] 09/24/2012 Active Atenolol 25MG 1 ORAL DAILY for -3 [facility] 09/24/2012 Active Calcium 1 ORAL daily for -3 [facility] 09/24/2012 Active Vitamin D3 1000 IU ORAL daily for -3 [facility] 09/24/2012 Active Rifle Jelly 1 ORAL daily for -3 [facility] 09/24/2012 Active Problems Problem Type SNOMED Code ICD Code Onset Dates Problem Status W/U Status Risk Notes Problem Menopausal symptom (79980368) Symptomatic menopausal or female climacteric states (627.2) Active confirmed Major Problem Routine gynecological examination (V72.31) Active confirmed Diag Problem Exercises teaching, guidance, and counseling (588305536) Exercise counseling (V65.41) Active confirmed Diag Problem Screening for malignant neoplasm of colon (312496920) Special screening for malignant neoplasms, colon (V76.51) Active confirmed Major Plan Of Treatment No Information Insurance Providers Payer Name Payer Address Payer Phone Subscriber Number Group Number Insured Name Patient Relationship to Insured Coverage Start Date Coverage End Date MEDICARE [address] [facility] [place] [id number] [phone] [id number] NATALY JAIN Self - patient is the insured 1 MED [address] [place] [address] [phone] [id number] NATALY JAIN Self - patient is the insured 1
--- OUTSIDE RECORDS SUMMARY | 2024-10-02 16:09 | XMS_ITS | Clinical Summary ---
Author Organization [facility] Address [address] [facility] [address] [place] [address] Care Team Providers Care Laundry Tub Maker Name Role Phone Unavailable Primary Care Provider Unavailabl e Immunizations Immunization Administration Dates Next Due Influenza injectable quadrivalent [...] Alcohol/Substance Use Screening 1957 Tobacco Screening 1957 Zoster Vaccines (1 of 2) 1994 RSV Patients and Patients Aged 60 years or older (1 - 1-dose 75+ series) 09/04/2019 COVID-19 Vaccine ( season) 2024 Influenza Vaccine (#1) 2024 3, 02/06/2017, 02/08/2016, Additional history exists DTaP/Tdap/Td Vaccines [...] patient's age to complete this topic Insurance [facility] MEDEX C[facility] MEDICARE Member Subscriber Plan / Payer (Ef fective 2010-Present) Name:Nima Yahaira Member ID:[id number] Relation to Subscriber:Self Name:Nima Yahaira Subscriber ID:[id number] Payer ID:STATE Group ID:Not on file Type:Medicare Address: [facility], [facility]. [address] [facility] [place] [address]
--- OUTSIDE RECORDS SUMMARY | 2024-10-02 16:09 | XMS_ITS | Data Portability ---
Author Organization 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 [email or web address] Not available 11/24/2017 09:55:38 Plan of Treatment Reminders Order Date Submit Date Provider Last Modified By Organization Details Last Modified Time Details Appointments None recorded. Lab None recorded. Referral pain management referral - [facility] Joya MD, [address] , [place], [address], 8 13:16:27 Procedures None recorded. Surgeries None recorded. Imaging XR, shoulder 2017 018 [email or web address] 2 In-House Results, For Internal Use Only, Do Not Delete/merge, [id number] 13:08:25 MRI, lumbar spine, w/o contrast 2017 018 JEANNA In-House Results, For Internal Use Only, Do Not Delete/merge, [id number] 8 15:26:00 XR, lumbar spine 2017 018 [email or web address] In-House Results, For Internal Use Only, Do Not Delete/merge, [id number] 8 13:16:27 Medication Orders None recorded. Patient TargetsNo targets recorded. Patient Instructions Encounter Date Encounter Id Patient Instructions Last Modified By Organization Details Last Modified Time 09/06/2017 [id number] The patient will undergo an MRI of [...] will be referred to pain management in [facility] with Dr. Cisneros. She will [...] inaccuracies. [email or web address] Not available 09/06/2017 11:30:07 09/19/2017 [id number] lumbar spinal stenosis: care instructions [email or web address] Not available 09/19/2017 14:22:20 The patient will be referred to Dr. Cisneros in [place] for evaluation and treatment options [email or web address] Not [...] The patient has been referred to Dr. Cisnreos for evaluation and treatment for pain management options. She has appointment with Dr. Cisneros this week. Some parts of this dictation were generated by voice recognition software and may contain some typographical and/or grammatical inaccuracies. [email or web address] Not available 09/19/2017 14:21:55 11/24/2017 [id number] shoulder arthrit is: exercises [email or web address] Not available 11/24/2017 10:48:04 Reason for Referral Pain Management Referral for Lumbar spondylosis [facility] Referring Physician: Nellie Templeton, [facility] Encounter Date: 09/06/2017 Results Created Date Observation Date Name Description Value Unit Range Abnormal Flag Note LastModifiedBy Organization Detail LastModifiedTime 09/08/19 18 09/07/2017 MRI, lumba r spine , w/o contr ast No observ ation [facility] [address] [facility] [address], [address], 09/07/2017 16:40:42 Result Notes None recorded. Problems [...] 09/07/2017 MRI, lumbar spine, w/o contrast [facility] [address] [facility] [address], [place], [address], 09/07/2017 16:40:42 Procedure Notes None recorded. Medical Equipment None Reported. Allergies Allergen ID Allergen Name Allergen Category Reaction Reaction Severity Criticality Documentation Date Start Date Code Code System Note Provider Name and Address Organization Details Recorded Time 71856 codeine medicatio n nausea severe Not available [...] Updated DateTime 09/06/2017 154.94 cm 35.9 kg/m2 84949.[address] [facility] 09/06/2017 11:01:04 Date Recorded Body height Body mass index (BMI) Body weight Provider Name and Address Organization Details Last Updated DateTime 09/19/2017 154.94 cm 35.9 kg/m2 78783.[address] [facility] 09/19/2017 14:08:51 Date Recorded Body height Body mass index (BMI) Body weight Provider Name and Address Organization Details Last Updated DateTime 11/24/2017 154.94 cm 36.5 kg/m2 [address]8039.[address] [facility] 11/24/2017 09:36:39 Social History Question Answer Notes LastModified by [employer] ion Details LastModified Time Tobacco Smoking Status Former Smoker Antoinette Puentezac guadarrama [facility] 09/06/2017 11:01:21 Are You Blind Or Do You Have [...] Yoga, [place] [email or web address] Information not available 11/24/2017 Do You Have Difficulty Walking Or Climbing Stairs? No Information not available 09/06/2017 Sex: Unknown Functional Status Question Answer Note LastModified by The New [place] Timesizat ion Details LastModified Time What is your level of alcohol consumption? Occasional Information not available 09/06/2017 Do you have [...] SNOMED-CT Code Diagnosis ICD10 Code Diagnosis Note [id number] [facility], [address] [address] 09/06/2017 10:17:30 09/06/2017 12:23:32 Low back pain 818580426 M54.5 Lumbar spondylosis 41611 0009 M47.896 [id number] Nellie Gray-P e [facility], [address] [address] 09/19/2017 13:59:27 09/19/2017 14:40:29 Spinal stenosis of lumbar region 43931434 M48.061 Lumbar spondylosis 21375 0009 M47.896 [id number] Luke Pedroza MD SOC [address] [facility], [address] [address] 11/24/2017 09:23:16 11/24/2017 13:08:25 Shoulder joint pain 100443645 M25.511 Localized, primary osteoarthritis of the shoulder region 140912666 M19.011 Health Concerns Section Related Observation LastModified by Organization Detai ls LastModified Time None Recorded Concern Status LastModified by Organization Details LastModified Time None Recorded Advance Directives Directive None Recorded Payers Encounter Date Sequence Insurance Name Policy Number Policy [place] Covered Member ID [place] Member ID Guarantor Name 09/06/2017 2 [facility]: (PPO[facility] [id number] Yahaira Abebein [id number] Yahaira Nima 09/06/2017 1 MEDICARE B-[place]: COURTNEY Russ Nima [id number] Satinder Abebein 09/19/2017 2 [facility]-[place]: (PPO) [id number] Yahaira Abebein [id number] Yahaira Abebein 09/19/2017 1 MEDICARE B-[place]: COURTNEY Russ Nima [id number] Yahaira Abebein 11/24/2017 2 [facility]: ([place] [id number] Yahaira Abebein [id number] Yahaira Nima 11/24/2017 1 MEDICARE B-[place]: COURTNEY Russ Nima [id number] Satinder Herring Notes Date Note Type Note [...] but for right shoulder tendinitis Nellie merida [address] [place] [address]., [facility] [address], [address], [facility] 09/06/2017 11:30:17 09/19/2017 text/html [...] well as her reports to take to [facility] pain management physician. Overall her medical condition is unchanged from her previous office visit. Nellie merida [address] [facility] [address], [place], [address], [facility] 09/19/2017 14:22:03 11/24/2017 text/html Roxane is a 72-year-old right-hand dominant female comes in for right shoulder pain. She moved her area from [place] back in March. She first reported the [...] PM at nighttime. Luke Pedroza MD [address] [facility] [address], [place], [address], [facility] 11/24/2017 11:27:02 OBGyn Episode No OBEpisode recorded.
--- OUTSIDE RECORDS SUMMARY | 2024-10-02 16:09 | XMS_ITS ---
Author Organization [facility] Address [address] [facility] [place] [address] Care Team Providers Care Director [employer] Name Role Phone Lisa Card Primary Care Provider Unavailab Anne Borjas [phone] REASON FOR VISIT cx appt 08/13/24 Encounters Encounter Location Date Provider Diagnosis [address] [address] 07/31/2024 Anne Lin Plan Of Treatment Next Appt Details Provider Name:Sal Mace , 10/15/2024 01:00:00 PM, [address] [place], [address], Progress Notes * Yahaira JAINDOB: [birth year] (78 yo F)Acc No.[id number]:07/31/2024 Patient:?Yahaira JAIN :1945???Age:78 Y???Sex:Female Address:[address], [place] [address] * true * Date:? Generated for Printi ng/Fanicholasg/eTransmitting on:?10/02/2024 04:09 PM EDT
--- OUTSIDE RECORDS SUMMARY | 2024-10-02 16:09 | XMS_ITS | Data Portability ---
Author Organization [place] - [facility], [facility]- Address [address] [place] [address] Care Team Providers [employer] Name Role Phone ATIYA LIM Primary Care Provider [phone] Assessment Encounter Date Assessment Date Assessment LastModified [...] and may contain typographical and/or grammatical inaccuracies. [email or web address] Not available 02/20/2019 13:50:16 03/27/2019 03/27/2019 Impression: [...] and may contain typographical and/or grammatical inaccuracies. [email or web address] Not available 03/27/2019 11:42:54 03/05/2020 03/05/2020 DIAGNOSTIC [...] that a second opinion be sent to [facility]. Not available 03/18/2020 07:27:59 Plan of Treatment Reminders Order Date Submit Date Provider Last Modified By Organization Details Last Modified Time Details Appointments None recorded. Lab None recorded. Referral None recorded. Procedures None recorded. Surgeries None recorded. [facility], [address], [address], [place], [address], 0 17:15:23 MRI, lumbar spine, w/o contrast 2019 020 [facility], [address], [address], [place], [address], 0 09:17:39 Medication Orders Compound 309 2018 019 [facility], [address], [place], [address], 9 12:05:47 Patient TargetsNo targets recorded. Patient InstructionsNo instructions recorded. Reason for Referral None Reported. Results Created Date Observation Date Name Description Value Unit Range Abnormal Flag Note LastModifiedBy Organization Detail LastModifiedTime 03/12/20 20 03/12/2020 MRI, lumba r spine , w/o contr ast No observ ation record ed. [facility]- [address], [place], [address], 03/12/2020 16:36:42 Result Notes None recorded. Problems Name Problem SNOMED Code Status Onset Date Resolution Date Notes Provider Name and Address Organization Details Recorded Time No current problems or disability 529424907 Active HAYDEN Patel - [facility] 9 14:03:11 Lumbar radiculopathy 740087573 Active 2018 HAYDEN Patel - [facility] 9 14:07:50 Backache 452920656 Active 2018 Ju Bhagat [facility] 9 14:07:51 Problem Notes None recorded. Procedures Surgical History Date Name Laterality Status Provider Name and Address Organization Details Recorded Time 02/21/20 19 Injection Shoulder completed Crys Pascual [place] - [facility] 02/20/2019 13:09:09 05/22/18 94 Hysterectomy completed Daniel Sexton [facility] 03/05/2020 11:35:23 05/22/18 72 Gallbladder Surgery completed Daniel Wilcoxn [facility] 03/05/2020 11:35:23 05/22/18 68 Appendectomy completed Ju Bhagat [facility] 04/10/2018 15:08:34 05/22/18 60 Breast completed Daniel Sexton [facility] 03/05/2020 11:35:23 Imaging Results Imaging Date Name Status LastModified by Organiz ation Details LastModified Time 03/12/2020 MRI, lumbar spine, w/o contrast [facility] [place] [address] Physical Therapy- [address], [place], [address], 03/12/2020 16:36:42 Procedure Notes None recorded. Medical Equipment None Reported. Allergies Allergen ID Allergen Name Allergen Category Reaction Reaction Severity Criticality Documentation Date Start Date Code Code System Note Provider Name and Address Organization Details Recorded Time 21199 codeine medicatio n nausea moderate Not available 06/12/2018 2670 RxNorm Ju Bhagat [facility] 9 14:02:54 82721 acetamino phen / oxycodone medicatio n nausea moderate Not available 06/12/2018 37454 3 RxNorm Ju Bhagat [facility] 9 14:03:04 Medications Name Sig Start Date Stop Date [...] Updated DateTime 02/20/2019 154.94 cm 37.4 kg/m2 55921.29 g Crys [place]ascual [place] [facility] 02/20/2019 13:08:20 Date Recorded Body height Body mass index (BMI) Body weight Provider Name and Address Organization Details Last Updated DateTime 03/27/2019 154.94 cm 37.8 kg/m2 72449.47 g Crys [place]ascual [place] [facility] 03/27/2019 11:18:57 Date Recorded Body height Body mass index (BMI) Body weight Provider Name and Address Organization Details Last Updated DateTime 03/05/2020 154.94 cm 37.8 kg/m2 33762.47 g Daniel Sexton [place] [facility] 03/05/2020 11:35:08 Date Recorded Body height Body mass index (BMI) Body weight Provider Name and Address Organization Details Last Updated DateTime 03/17/2020 154.94 cm 37.8 kg/m2 65675.47 g Robyn Cruz [place] - [facility] 03/17/2020 13:58:17 Date Recorded Body height Body mass index (BMI) Body weight Provider Name and Address Organization Details Last Updated DateTime 08/17/2020 154.94 cm 40.1 kg/m2 18776.58 g Asa Barnes MD [address], [place], [address], [place] - [facility] 08/17/2020 14:32:09 Social History Question Answer Notes LastModified by Organizat ion Details LastModified Time Tobacco Smoking Status Former Smoker Ju Bhagat thierry, [place] - [facility] 04/10/2018 15:08:34 Do You Have An Advance Directive? No [email or web address] Information not available 04/10/2018 Is Blood Transfusion Acceptable In An Emergency? Yes [email or web address] Information not available 04/10/2018 In The 14 [...] When Did You Quit Smoking? 1-5yearssincelast cigarette [email or web address] Information not available 04/10/2018 Live Alone Or With Others? Alone [email or web address] Information not available 04/10/2018 Have You Been Diagnosed With Menopause? Yes [email or web address] Information not available 04/10/2018 Have You Been Diagnosed With Vitamin D Or Calcium Deficiency? No [email or web address] Information not available 04/10/2018 Have You Had A Bone Density Test (DEXA) Performed In The Past 2 Years? If Yes: Where? When? [place] [email or web address] Information not available 04/10/2018 Have You Used Antacids Continuously For More Than 6 Months? Yes Information not available 03/05/2020 Have You Used Steroids Daily For More Than 3 Months? No [email or web address] Information not available 04/10/2018 Do You Have A Medical Power Of Burrer Marker Axle? Yes [email or web address] Information not available 04/10/2018 At What Age Did You Start Smoking Tobacco? 17 [email or web address] Information not available 04/10/2018 Has Tobacco Cessation Counseling Been Provided? No [email or web address] Information not available 04/10/2018 Sex: Unknown Functional Status Question Answer Note LastModified by Organizat ion Details LastModified Time What is your level of alcohol consumption? Occasional [email or web address] Information not available 04/10/2018 What is your exercise level? Occasional [email or web address] Information not available 04/10/2018 Mental Status None recorded. Family History Relationship Description Onset Age of this Age Resolved Age Notes LastModified by Organization Details LastModified Time Father No current problems or disability Not available 02/20 13:08:40 Mother No current problems or disability [email or web address] Not available 02/20 13:08:40 Medical History Condition Response Coronary Artery Disease N Gout N Anxiety/Depression Y Other N Enlarged Prostate N Blood Transfusion N MRSA N Emphysema N Hernia N COPD N [...] Multiple Sclerosis N Ulcers N Heart Attack ([place]) N Stomach Ulcers N Diabetes N Bleeding [...] SNOMED-CT Code Diagnosis ICD10 Code Diagnosis Note [id number] Bill Ruvalcaba MD [address] [place] [address] 04/10/2018 14:33:04 04/10/2018 15:37:52 Lumbar radiculopathy 398435392 M54.16 Backache 747271541 M54.9 [id number] Bill [facility] [address] [place] [address] 06/12/2018 13:49:18 06/12/2018 14:08:09 Lumbar radiculopathy 775281560 M54.16 Backache 970943557 M54.9 [id number] Luke Pedroza MD [address] [address] [place] [address] 02/20/2019 13:00:00 02/20/2019 14:43:18 Localized, primary osteoarthritis of the shoulder region 563855803 M19.011 [id number] Luke Pedroza MD [address] [place] [address] 03/27/2019 11:13:54 03/28/2019 16:29:20 Synovitis/tenosynovit is - shoulder 552664428 M65.811 [id number] Bill Ruvalcaba MD [address] [place] [address] 03/05/2020 10:49:33 03/05/2020 13:23:36 Lumbar radiculopathy 320668290 M54.16 Backache 758661284 M54.9 Spinal adriano nosis of lumbar region 31227560 M48.061 [id number] Bill Ruvalcaba MD [address] [place] [address] 03/17/2020 13:51:00 03/18/2020 13:44:59 Lumbar radiculopathy 417253322 M54.16 Backache 924703360 M54.9 Spinal adriano nosis of lumbar region 56145088 M48.352 [id number] Asa Barnes MD [facility] [address] [place] [address] 08/17/2020 13:57:11 08/18/2020 10:55:48 Spinal stenosis of lumbar region 23073948 M48.062 X-ray findings/i nterpretat ion: {{Mild Mod [...] she has any further questions. Lumbar spondylolisthesis 2309258439 02120 M43.16 Health Concerns Section Related Observation LastModified by Organization Detai ls LastModified Time None Recorded Concern Status LastModified by Organization Details LastModified Time None Recorded Advance Directives Directive N: Payers Insurance Date Sequence Insurance Name Policy Number Policy [place] Covered Member ID [place] Member ID Guarantor Name 12/30/2020 1 [place]IC[place]: COURTNEY Herring [id number] Yahaira Herring 08/17/2020 2 [place] [id number] Yahaira Herring [id number] Yahaira Herring Notes Date Note Type Note Provider [...] with motion particularly abduction. Luke Pedroza MD [address], [place], [address], [place] [facility] 02/20/2019 13:50:23 03/27/2019 text/html Patient returns today for her right shoulder. Injection in her right shoulder 1 month ago did not help. She takes Aleve. She denied pain for several months now. She has pain at night. Luke Pedroza MD [address], [place], [address], [place] [facility] 03/27/2019 12:07:50 03/05/2020 text/html L-spineReported bystaff.[facility] Quality:aching; occasional; worsening Severity:mild Duration:date of [...] following the procedure. Bill Ruvalcaba MD [address], [place], [address], [place] [facility] 03/10/2020 17:05:07 03/17/2020 text/html HISTORY OF PRESE NT Today, on 03/17/2020, Yahaira is a 74-year-old female who presents for review of her lumbar spine MRI results. Bill Ruvalcaba MD [address], [place], [address], [place] [facility] 03/18/2020 07:28:16 08/17/2020 text/html [...] 10*}} {{weeks months years *}} Pain scale: {{/10 2/10 3/10 4/1 0* 5/10 6/10 7/10 8/ 10 9/10 02/28}} Related to traumatic injury: {{no yes fall* [...] g* walking laying down}} {{everything ROM sj garcia lifting standin g walking* laying down}} Alleviating [...] without long lasting results. Asa Barnes MD [address], [place], [address], [facility] [place] [facility] 08/17/2020 16:46:20 OBGyn Episode No OBEpisode recorded.
--- NOTE | 2024-10-02 16:35 | ED.WEAKNESS ---
HPI - Weakness General Chief complaint: Weakness Stated complaint: HTN, Weakness Time Seen by Provider: 10/02/24 16:33 Source: patient Mode of arrival: EMS Limitations: no limitations History of Present Illness ED Provider: HPI Narrative: 79-year-old female with past medical history of dyslipidemia, type 2 diabetes mellitus, anxiety, depression, hypertension, GERD, obesity, and history of lumbar spinal surgery L4-L5 and L3-L4 in 2020 was apparently having the massage and at around 14:45 all of a sudden she was not able to get the words out which lasted about 5 minute no other weakness noticed no headache EMS checked the blood pressure was in 160s. POC was 130s Related Data Home Medications ?Medication ?Instructions ?Recorded ?Confirmed alpha lipoic acid 100 mg capsule 100 mg PO DAILY 11/02/22 10/02/24 ascorbate calcium (vitamin C) 500 500 mg PO DAILY 11/02/22 10/02/24 mg tablet calcium citrate 630 mg PO DAILY 11/02/22 10/02/24 cholecalciferol (vitamin D3) 25 25 mcg PO DAILY 11/02/22 10/02/24 mcg (1,000 unit) capsule multivitamin 1 tab PO DAILY 11/02/22 10/02/24 methylcellulose (laxative) 500 mg 500 mg PO DAILY 08/07/24 10/02/24 tablet (Citrucel) pantoprazole 20 mg tablet,delayed 20 mg PO DAILY@0630 08/07/24 10/02/24 release citalopram 20 mg tablet 20 mg PO BEDTIME 10/02/24 10/02/24 olmesartan 40 mg tablet 40 mg PO BEDTIME 10/02/24 10/02/24 Previous Rx's ?Medication ?Instructions ?Recorded empagliflozin 10 mg tablet 10 mg PO DAILY #30 tabs 09/19/24 (Jardiance) Allergies Allergy/AdvReac Type Severity Reaction Status Date / Time codeine AdvReac Intermediate seizure Verified 10/02/24 15:47 oxycodone [From Percocet] AdvReac Intermediate Nausea and Verified 10/02/24 15:47 Vomiting Review of Systems Review of Systems: Yes all other systems are reviewed and are negative PMFSH Past Medical History Medical History IBS (irritable bowel syndrome) Allergies Urticaria Dyslipidemia Type 2 diabetes mellitus without complication, without long-term current use of insulin Hearing impairment History of adenomatous polyp of colon Lumbar back pain with radiculopathy affecting left lower extremity Obesity (BMI 30-39.9) Paget's disease of the bone Osteopenia GERD (gastroesophageal reflux disease) Impaired fasting glucose Anxiety and depression Essential hypertension Surgical History Hx of LASIK Hx of left cataract extraction Hx of tubal ligation H/O colonoscopy History of partial hysterectomy History of appendectomy History of cholecystectomy H/O breast surgery History of lumbar discectomy Social History Social History Household Members: Family Housing: House Are you a primary resident care assistant to a significant other at home: No Do you presently have visiting nurse or other home services: No Alcohol intake: never Patient Tobacco Use Status: Former Tobacco user Smoked in Last 30 Days: No e-Cigarette/Vaping Use: Never Used Second Hand Smoke Exposure: Yes Use of substances other than those prescribed or required for medical reasons: No Currently Displaying Signs/Symptoms of Drug Intoxication Withdrawal: No Advance Directives: No Advance Directives Information Provided: No Do you have a plan to hurt others: No Plan service: No Current occupational status: retired Cognitive needs: No Hearing needs: No Vision needs: Yes (Reading glasses) Physical Exam Vital Signs: Vital Signs: Last Vital Signs Temp 96.8 F 10/03/24 00:37 Pulse 98 10/03/24 00:37 Resp 18 10/03/24 00:37 BP 132/84 10/03/24 00:37 Pulse Ox 96 10/03/24 00:37 O2 Del Method Room Air 10/03/24 00:37 BMI result Body Mass Index 38.2 Appearance: Alert. Oriented X3. No acute distress. Eyes: PERRLA, No Nystagmus ENT: Pharynx normal. Oral Mucosa moist Neck: Normal inspection. Neck supple. CVS: Normal heart rate and rhythm. Pulses normal. Respiratory: No respiratory distress. Equal air entry bilateral, no wheezing/rales/rhonchi Abdomen: Soft and nontender. Bowel sounds are present, no mass palpable, no CVA tenderness Skin: Skin warm and dry. Normal skin color. Normal skin turgor. Extremities: No lower extremity edema. No calf tenderness Neuro: Oriented X 3. No motor deficit. No sensory deficit.No cerebellar signs , cranial nerves II-XII intact NIH Stroke Scale Internal: Initial- Upon Arrival Time: 16:40 Level of Consciousness: Alert Level of Consciousness Questions: Answers both questions correctly Level of Consciousness Commands: Performs both tasks correctly Best Gaze: Normal Visual: No visual loss Facial Palsy: Normal Motor Arm (Right): No drift Motor Arm (Left): No drift Motor Leg (Right): No drift Motor Leg (Left): No drift Limb Ataxia: Absent Sensory: Normal Best Language: No aphasia Dysarthia: Normal Extinction and Inattention: No abnormality Score: 0 Medications Administered Generic Name Dose Route Start Last Admin Trade Name Freq PRN Reason Stop Dose Admin Enoxaparin Sodium 40 mg 10/02/24 21:00 10/02/24 22:16 Enoxaparin Sodium 40 Mg/0.4 Ml Syringe SUBCUT 40 mg Q24H EDGARD Administration Insulin Human Lispro 0 unit 10/02/24 21:00 10/02/24 22:11 Insulin Lispro 100 Unit/Ml 3 Ml Vial SUBCUT Not Given QIDACHS [facility] Protocol Valsartan 160 mg 10/02/24 21:00 10/02/24 22:30 Valsartan 160 Mg Tablet PO 160 mg BEDTIME EDGARD Administration Discontinued Medications Generic Name Dose Route Start Last Admin Trade Name Freq PRN Reason Stop Dose Admin Aspirin 325 mg 10/02/24 17:39 10/02/24 18:09 Aspirin Enteric Coated 325 Mg Tablet.Dr HUDDLESTON 10/02/24 17:40 325 mg ONCE ONE Administration Iohexol 100 ml 10/02/24 17:19 10/02/24 17:19 Iohexol 350 Mg/Ml 100 Ml Infus..Btl IV 10/02/24 17:20 70 ml ONCE ONE Administration Medical Decision Making Medical Decision Making MDM Narrative: Patient with transient expressive aphasia CT head and CTA negative for acute occlusion no neuro deficits at this time patient is started on aspirin daily case discussed neurologist plan to admit for further workup Differential Diagnosis Differential Diagnoses: The differential diagnosis associated with the presentation includes TIA/CVA Admission/Observation Consideration of admission/observation: Escalation of care including admission/observation considered Consult Healthcare Provider Management of the patient was discussed with: Hospitalist and Electric [employer] Inspector Dr. Tang neurologist plan to admit for further evaluation including MRI and echo Lab Data MDM Lab Attestation statement: I reviewed the patient's lab results. 10/02/24 16:30 10/02/24 16:33 Labs: Lab Results 10/02/24 10/02/24 10/02/24 Range/Units 16:30 16:33 17:08 WBC 8.7 (4.8-10.8) X10*3/uL RBC 4.53 (4.20-5.50) X10*6/uL Hgb 9.4 L (12.0-16.0) g/dl Hct 32.5 L (37.0-47.0) % MCV 71.7 L (80.0-98.0) fL MCH 20.8 L (27.0-33.0) pg MCHC 28.9 L (31.0-35.0) g/dl RDW 15.9 (11.0-16.0) % Plt Count 469 H (160-400) X10*3/uL MPV 10.1 (9.4-12.3) fL Absolute Nucleated RBC 0.000 (0.0-0.012) X10*3/uL Nucleated RBC % (auto) 0.0 (0.0-0.2) /100WBC Neutrophils % (Manual) 58 (45-73) % Band Neutrophils % 0 L (3-5) % Lymphocytes % (Manual) 31 (20-40) % Monocytes % (Manual) 9 (2-11) % Eosinophils % (Manual) 2 (0-4) % Abs Neuts (Manual) 5.0 (2.0-8.3) X10*3/uL Lymphocytes # (Manual) 2.7 (1.2-4.9) X10*3/uL Monocytes # (Manual) 0.8 (0.1-1.2) X10*3/uL Eosinophils # (Manual) 0.2 (0.0-0.4) X10*3/uL Platelet Estimate INCREASED (NORMAL) Plt Morphology Comment NORM RBC Morphology NORMAL PT 10.2 L (10.9-12.4) SEC INR 0.9 (0.9-1.1) APTT 28.8 (26.0-36.8) SEC Sodium 141 (135-145) mmol/L Potassium 3.9 (3.3-5.1) mmol/L Chloride 107 (96-108) mmol/L Carbon Dioxide 25 (22-29) mmol/L Anion Gap 13 (12-20) BUN 17 H (9-16) mg/dL Creatinine 0.75 (0.5-1.4) mg/dL Estim Creat Clear Calc 61.7 Estimated GFR > 60 Random Glucose 89 (60-115) mg/dL Calcium 9.3 (8.4-10.2) mg/dL Magnesium 2.1 (1.6-2.6) mg/dL Total Bilirubin 0.3 (0.0-1.0) mg/dL AST 17 (5-31) U/L ALT 15 (0-31) U/L Alkaline Phosphatase 84 (39-117) U/L Troponin I High Sens 7.2 (<3.5-17.0) ng/L Total Protein 6.8 (6.5-8.0) g/dL Albumin 3.9 (3.5-5.0) g/dL TSH 1.54 (0.32-4.0) uIU/mL Free T4 0.86 (0.71-1.85) ng/dL Free T3 Cancelled Urine Color Yellow Urine Appearance Clear Urine pH 5.5 (5.0-9.0) Ur Specific [place] 1.025 (1.005-1.025) Urine Protein Negative (Neg-Trace) mg/dL Urine Glucose (UA) >=1000 H (Negative) mg/dL Urine Ketones Negative (Negative) mg/dL Urine Blood Negative (Negative) Urine Nitrite Negative (Negative) Ur Leukocyte Esterase Negative (Negative) Urine RBC 0-2 (0-2) /HPF Urine WBC 0-5 (0-5) /HPF Ur Squamous Epith Cells 0-2 (0-2) /HPF Urine Bacteria None Seen (None Seen) Hyaline Casts 0-2 (0-2) /LPF Independent Interpretation I performed an independent interpretation of an: EKG Interpretation: Normal sinus rhythm heart rate 99 beats per minute normal intervals normal axis no acute ST-T no acute ischemia Radiology Impression Discussion of test interpretation with radiology: I have reviewed the radiologist's reading. Radiologist Impression: [address] [address] [address] Scan Report Signed with Addenda Patient: Yahaira Herring MR#: [id number] : 1945 Acct:[id number] Age/Sex: 79 / F ADM Date: 10/02/24 Loc: HO.ED Attending Dr: Ordering Physician: Jonathan Rae MD Date of Service: 10/02/24 Procedure(s): CT angio head neck STROKE Accession Number(s): [id number] cc: Felipa Huddleston MD; Jonathan Rae MD~ Report Number: [id number]: Total DLP = 642.00 mGy-cm ADDENDUMThis document has been electronically signed by: Svetlana Cotton MD on 10/02/2024 17:49:05 ADDENDUM: Receipt of this report by the clinical staff was confirmed with Butch Villanueva MD on October 02, 2024 17:53:00 EDT. This document has been electronically signed by: Kristin Stein on 10/02/2024 17:53:47 Addendum Dictated By: Svetlana Hamm MD Addendum Signed By: <Electronically signed by Svetlana Hamm MD in [place]> 10/02/241753 Addendum Cosigned By: DD/ TD/TT: 10/02/24 CLINICAL HISTORY: aphasia CTA of the head and neck with 3-D postprocessing Comparison: None Findings: There is 60% stenosis of left proximal internal carotid artery. No significant right carotid artery stenosis. Intact vertebral arteries. The vertebral basilar system is patent. The cerebellar and posterior cerebral arteries are intact. The intracranial internal carotid arteries are patent. There is severe calcified atherosclerotic disease of the carotid siphons bilaterally. There is up to 50% stenosis of the right internal carotid artery (see series 7 images 238 through 250). In this region there is focal outpouching of the vessel measuring up to 3 mm ( series 7, image 247). The middle/anterior cerebral arteries are intact. No abrupt cutoff. No mass, midline shift, hydrocephalus, acute hemorrhage or abnormal contrast enhancement. Mild paraseptal and centrilobular emphysema with mild scarring. Ground-glass opacity in the right upper lobe measures up to 6 mm, Likely infectious/inflammatory. The soft tissues of the head and neck are unremarkable. Impression: Significant stenosis of the left proximal internal carotid artery, 60%. Up to 50% stenosis of the right ICA terminus. Question of 3 mm aneurysm of the right internal carotid artery at the carotid siphon. No occlusion. This document has been electronically signed by: Svetlana Cotton MD on 10/02/2024 17:49:05 Critical Care Time Critical Care Time Critical Care Time: Yes Total Critical Care Time: 45 Attestation: The patient was critically ill with a high probability of imminent or life threatening deterioration. I spent greater than 50 ???minutes of discontinuous time evaluating the patient,delivering critical care at the bedside, discussing and evaluating pertinent data with consultants. Critical care time does not include time spent performing separately billable procedures or teaching. Total time spent performing critical care was 45???minutes. Discharge Plan Discharge Clinical Impression: TIA (transient ischemic attack) Patient Disposition: Admitted As Inpatient Interventions: Admission Worksheet (ED) Last Done: 10/02/24 23:29
[2024-10-02 16:42] LABS: Baso%MD 0.7 %; Eos%MD 2.3 %; Hematocrit 32.5 % (37.0-47.0); Hemoglobin 9.4 g/dl (12.0-16.0); IG%MD 0.3 %; Lymph%MD 28.7 %; Mean Corpuscular HGB Conc 28.9 g/dl (31.0-35.0); Mean Corpuscular Hemoglobin 20.8 pg (27.0-33.0); Mean Corpuscular Volume 71.7 fL (80.0-98.0); Mean Platelet Volume 10.1 fL (9.4-12.3); Mono%MD 11.5 %; Neut%MD 56.5 %; Platelet Count 469 X10*3/uL (160-400); Red Blood Count 4.53 X10*6/uL (4.20-5.50); Red Cell Distribution Width 15.9 % (11.0-16.0); White Blood Count 8.7 X10*3/uL (4.8-10.8)
[2024-10-02 16:44] LABS: Appearance Urine Clear; Color Urine Yellow; Glucose Urine UA >=1000 mg/dL (Negative); Leukocyte Esterase Urine Negative (Negative); Nitrite Urine Negative (Negative); PH 5.5 (5.0-9.0); Specific Gravity - Urine 1.025 (1.005-1.025); UMIC TRIGGER UACC YES; Urine Blood Negative (Negative); Urine Ketones Negative (Negative); Urine Protein Negative (Neg-Trace)
[2024-10-02 16:46] LABS: Bacteria Urine None Seen (None Seen); Hyaline Casts Urine 0-2 /LPF (0-2); RBC Urine 0-2 /HPF (0-2); Squamous Epithelial Cell Urine 0-2 /HPF (0-2); WBC Urine 0-5 /HPF (0-5)
[2024-10-02 17:01] LABS: Troponin-I High Sensitivity 7.2 ng/L (<3.5-17.0)
[2024-10-02 17:04] LABS: Alanine Aminotransferase 15 U/L (0-31); Albumin Level 3.9 g/dL (3.5-5.0); Alkaline Phosphatase 84 U/L (39-117); Anion Gap 13 (12-20); Aspartate Amino Transferase 17 U/L (5-31); Bilirubin Total 0.3 mg/dL (0.0-1.0); Blood Urea Nitrogen 17 mg/dL (9-16); Calcium 9.3 mg/dL (8.4-10.2); Carbon Dioxide 25 mmol/L (22-29); Chloride 107 mmol/L (96-108); Creatinine Clr Calc Pharmacy 61.7; Estimated Glomerular Filt Rate > 60; Glucose Random 89 mg/dL (60-115); Potassium 3.9 mmol/L (3.3-5.1); Sodium 141 mmol/L (135-145); Total Protein 6.8 g/dL (6.5-8.0)
[2024-10-02] MEDS: iohexoL 350 MG/ML 100 ML INFUS..BTL IV (17:19)
[2024-10-02 17:25] LABS: INTERNATIONAL NORM RATIO 0.9 (0.9-1.1); Prothrombin Time 10.2 SEC (10.9-12.4)
[2024-10-02 17:27] LABS: Partial Thromboplastin Time 28.8 SEC (26.0-36.8)
[2024-10-02 17:42] LABS: Eosinophils Absolute Manual 0.2 X10*3/uL (0.0-0.4); Eosinophils Percent Manual 2 % (0-4); Lymphocytes Absolute Manual 2.7 X10*3/uL (1.2-4.9); Lymphocytes Percent Manual 31 % (20-40); Monocytes Absolute Manual 0.8 X10*3/uL (0.1-1.2); Monocytes Percent Manual 9 % (2-11); Neutrophils Percent Manual 58 % (45-73)
[2024-10-02 17:43] LABS: Platelet Estimate INCREASED (NORMAL); RBC Morphology NORMAL
[2024-10-02 17:44] LABS: Band Neutrophils Percent 0 % (3-5); Platelet Morphology Comment NORM
--- NOTE | 2024-10-02 18:05 | PC.NURSE ---
Pt speaking full sentences; neuros intact and pt/family state pt is at baseline mentation (A+OX3); pt ambulatory with walker/steady gait; vss; pt's dgtr reports pt having difficulty speaking when episode occurred
[2024-10-02] MEDS: Aspirin Enteric Coated 325 MG TABLET.DR PO (18:09)
--- NOTE | 2024-10-02 18:40 | PHA.MEDREC ---
Addendum entered by Daniel Mauro RPh 10/02/24 19:03: Med rec was reviewed by [facility]. Original Note: Pharmacy Consult ? Medication Reconciliation Pharmacy has completed the medication reconciliation. Spoke to patient to confirm med list. Patient was able to name all her medications to me. Patient had all her morning medications today.
--- NOTE | 2024-10-02 19:24 | PC.NURSE ---
Addendum entered by Suly Butler RN 10/02/24 23:19: late entry- pt PASSED bed side swallow screen. pt stated she only feels trouble when swallowing milk. Original Note: assumed care for pt at this time. pt in no notable distress eating dinner with her daughter at bedside. pt is alert and oriented to self place and time. pt answering questions appropriately. Pt denies any pain at this time. updated on plan of care.
--- NOTE | 2024-10-02 19:54 | PM.IMHP ---
History of Present Illness Date of Service: 10/02/24 Attending physician on admission: Speedy Skaggs Chief Complaint: garbled dreach Patient is an 79-year-old female with past medical hypertension, [id number] diabetes mellitus type 2, chronic lumbar spondylolisthesis and recent 2nd surgery with chronic right footdrop, GERD, obesity, IBS-D on Citrucel, tachycardia, fibroid cyst with removal from breast X5 ages 13-30, hysterectomy, cholecystectomy, appendectomy was brought in by ambulance to the emergency department from her massage therapist's office after experiencing 2 episodes of garbled speech when in the prone position in the massage chair. As soon as patient bent her head into the carrier at the top of the bench, patient realized that she could no longer make sense when she was speaking and acknowledged this. As soon as patient raised her head, she was able to speak coherently. This happened twice. The massage therapist called 911. Patient was otherwise asymptomatic. Patient had recent 2nd back surgery to the lumbar back and has chronic right footdrop. Currently patient denies any headache, visual changes, chest pain, shortness of breath at rest or with exertion. Patient is reporting issues with edema in the lower extremities currently in the feet only but was worse after surgery back in July for her back. Patient does state she has been tachycardic for unknown length of time and has not seen a retail route supervisor for further workup. Patient does report chronic issues with dysphagia especially when taking her supplements. In the emergency department CTA of the head and neck was performed and noted significant stenosis of the left proximal internal carotid artery, 60% and up to 50% stenosis of the right ICA terminus. There is a question of 3 mm aneurysm of the right internal carotid artery at the carotid siphon. CT of the head noted moderate to severe chronic small-vessel ischemic disease with encephalomalacia in the superior aspect of the left cerebellum. No acute findings noted. Review of Systems Review of Systems: Patient currently denies any headache, visual changes, nuchal rigidity, chest pain, shortness of breath at rest or with exertion, nausea or vomiting. Patient did not have any abdominal pain. Yes all other systems are reviewed and are negative PMFSH Medical History IBS (irritable bowel syndrome) Allergies Urticaria Dyslipidemia Type 2 diabetes mellitus without complication, without long-term current use of insulin Hearing impairment History of adenomatous polyp of colon Lumbar back pain with radiculopathy affecting left lower extremity Obesity (BMI 30-39.9) Paget's disease of the bone Osteopenia GERD (gastroesophageal reflux disease) Impaired fasting glucose Anxiety and depression Essential hypertension Cognitive capacity: Alert and orientated x3 Functional capacity: independent ambulation Surgical History Hx of LASIK Hx of left cataract extraction Hx of tubal ligation H/O colonoscopy History of partial hysterectomy History of appendectomy History of cholecystectomy H/O breast surgery History of lumbar discectomy Social History Household Members: Family Housing: House Are you a primary home care companion to a significant other at home: No Do you presently have visiting nurse or other home services: No Alcohol intake: never Patient Tobacco Use Status: Former Tobacco user Smoked in Last 30 Days: No e-Cigarette/Vaping Use: Never Used Second Hand Smoke Exposure: Yes Use of substances other than those prescribed or required for medical reasons: No Advance Directives: No Advance Directives Information Provided: No Do you have a plan to hurt others: No Plan service: No Current occupational status: retired Cognitive needs: No Hearing needs: No Vision needs: Yes (Reading glasses) Ebola Risk: Travel/Contact With Anyone From Affected Area/s: No Has Patient Experienced Ebola Symptoms: No Meds Allergies Allergy/AdvReac Type Severity Reaction Status Date / Time codeine AdvReac Intermediate seizure Verified 10/02/24 15:47 oxycodone [From Percocet] AdvReac Intermediate Nausea and Verified 10/02/24 15:47 Vomiting Home Medications ?Medication ?Instructions ?Recorded ?Confirmed ?Last Taken ?Type alpha lipoic acid 100 mg capsule 100 mg PO DAILY 11/02/22 10/02/24 10/02/24 History ascorbate calcium (vitamin C) 500 500 mg PO DAILY 11/02/22 10/02/24 10/02/24 History mg tablet calcium citrate 630 mg PO DAILY 11/02/22 10/02/24 10/02/24 History cholecalciferol (vitamin D3) 25 25 mcg PO DAILY 11/02/22 10/02/24 10/02/24 History mcg (1,000 unit) capsule multivitamin 1 tab PO DAILY 11/02/22 10/02/24 10/02/24 History methylcellulose (laxative) 500 mg 500 mg PO DAILY 08/07/24 10/02/24 10/02/24 History tablet (Citrucel) pantoprazole 20 mg tablet,delayed 20 mg PO DAILY@0630 08/07/24 10/02/24 10/02/24 History release citalopram 20 mg tablet 20 mg PO BEDTIME 10/02/24 10/02/24 10/01/24 History olmesartan 40 mg tablet 40 mg PO BEDTIME 10/02/24 10/02/24 10/01/24 History Physical Exam Vital Signs and Narrative: Vital Signs: Last Vital Signs Temp 98.2 F 10/02/24 15:49 Pulse 103 H 10/02/24 15:49 Resp 16 10/02/24 15:49 BP 126/47 L 10/02/24 15:49 Pulse Ox 96 10/02/24 15:49 O2 Del Method Room Air 10/02/24 15:49 BMI result Body Mass Index 38.2 Alert and orientated X3, able to give good history. Neuro: CN II-X11 intact, no deficits, visual acuity intact, R foot drop noted EYES: PERRLA, EOM intact ENT: hearing intact, no issues with swallowing water or using straw, uvula midline, lips moist, nares patent no epistaxis Cardiac: S1 S2 RRR, tachycardic, no murmur, no JVD, mild edema in Lower ext Pulmonary: lungs clear to ausculation B Abdominal: BS active in all 4 quadrants, no guarding, tenderness, rebounding, obesity MSK: strength 5/5 upper and lower extremities, equal noted R foot drop, foot drags slightly when walking per pt : no CVA tenderness no bladder distension Extremities: mild edema in lower extremities, PT and DP pulses palpable +2 Psych: mood stable, judgement and insight good Skin: intact, no open wounds noted on exam or reported surgical incisions for lumbar back surgery healed and closed Results Labs 10/02/24 16:30 10/02/24 16:33 Labs: Laboratory Results - last 24 hr 10/02/24 10/02/24 10/02/24 16:30 16:33 17:08 MCV 71.7 L MCH 20.8 L MCHC 28.9 L RDW 15.9 Plt Count 469 H MPV 10.1 Absolute Nucleated RBC 0.000 Nucleated RBC % (auto) 0.0 Neutrophils % (Manual) 58 Band Neutrophils % 0 L Lymphocytes % (Manual) 31 Monocytes % (Manual) 9 Eosinophils % (Manual) 2 Abs Neuts (Manual) 5.0 Lymphocytes # (Manual) 2.7 Monocytes # (Manual) 0.8 Eosinophils # (Manual) 0.2 Platelet Estimate INCREASED Plt Morphology Comment NORM RBC Morphology NORMAL PT 10.2 L INR 0.9 APTT 28.8 Anion Gap 13 Estim Creat Clear Calc 61.7 Estimated GFR > 60 Random Glucose 89 Calcium 9.3 Total Bilirubin 0.3 AST 17 ALT 15 Alkaline Phosphatase 84 Total Protein 6.8 Albumin 3.9 Urine Color Yellow Urine Appearance Clear Urine pH 5.5 Ur Specific [place] 1.025 Urine Protein Negative Urine Glucose (UA) >=1000 H Urine Ketones Negative Urine Blood Negative Urine Nitrite Negative Ur Leukocyte Esterase Negative Urine RBC 0-2 Urine WBC 0-5 Ur Squamous Epith Cells 0-2 Urine Bacteria None Seen Hyaline Casts 0-2 ECG Attestation: I personally reviewed and interpreted this ECG as follows: (NSR HR 99 Qtc 472) ECG interpretation date: 10/02/24 Prior ECG tracings: available for review Imaging Radiologist's Impressions: Head Neck CTA Impression: Significant stenosis of the left proximal internal carotid artery, 60%. Up to 50% stenosis of the right ICA terminus. Question of 3 mm aneurysm of the right internal carotid artery at the carotid siphon. No occlusion. HEAD CT Findings: No acute hemorrhage. No extra-axial fluid collection. No hydrocephalus, mass-effect or herniation. Cooper-white differentiation is maintained. There is patchy hypoattenuation of the periventricular and deep white matter, which is most likely the sequela of moderate to severe chronic small vessel ischemic disease. Encephalomalacia in superior aspect of the left cerebellum. No acute orbital pathology. No acute soft tissue abnormality. No fracture. Small foamy secretions in the right maxillary sinus. The other visualized paranasal sinuses are predominantly clear. The mastoid air cells are clear. Impression: No acute findings. Assessment and Plan (1) TIA (transient ischemic attack): Status: Acute Plan Patient is an 79-year-old female with past medical hypertension, lmn-duzfagk-ecnstlnwr diabetes mellitus type 2, chronic lumbar spondylolisthesis and recent 2nd surgery with chronic right footdrop, GERD, obesity, IBS-D on Citrucel, tachycardia, fibroid cyst with removal from breast X5 ages 13-30, hysterectomy, cholecystectomy, appendectomy BIBA from massage therapy office for 2 episodes of garbled speeach when in the prone position on table, Symptoms resolved once out of this position. Staff called 911. Pt being admitted under observation for TIA with noted abnormal CTA head and neck . TIA -MRI of the brain pending -neurology consulted -echo ordered -telemetry -lipid panel, hemoglobin A1c pending -aspirin initiated daily -PT /OT Abnormal CTA head and neck -await further recommendations from Neurology -Vascular consulted -lipid panel pending, patient is not currently on statin or aspirin (ASA 325 in ED< now on 81 mgs daily) Dysphagia -ST eval -Pt passed bedside swallow of water, diet allowed -Aspiration precautions Tachycardia -heart rate 101 to 116, patient asymptomatic -EKG normal sinus rhythm, QTC 472, AL 164, heart rate 99 -patient states she always has a heart rate above 100 and has not followed with a retail route supervisor in the past -echo ordered -BNP pending. Troponin negative -cardiology consulted -TSH pending HTN -continue olmesartan, renal function stable -low-sodium diet GERD -continue pantoprazole -avoid food triggers NIDDM II -sliding scale insulin -A1c pending -patient only on lifestyle changes and diet for treatment at this time Lumbar spondylolisthesis and recent 2nd surgery -recovery has been smooth with no complications -patient does have chronic footdrop related to her lower back problems -PT consulted IBS-D -Continue citrucel -Pt avoids fruit and other trigger foods DVT prophylaxis: Lovenox PPI prophylaxis: Pantoprazole Med rec completed Full code status Quality Stroke Does the patient have a stroke diagnosis?: No Reason for No Anti-thrombotic by Day Two: N/A - Med Ordered VTE Prior VTE?: No VTE Risk Level:: Medical - moderate - high VTE Device Contraindication: N/A - Device Ordered VTE Drug Contraindication: N/A - Med Ordered
[2024-10-02 20:22] VITALS: BP 141/56; PULSE 105; RESP 16; TEMP 37.1; O2SAT 92
[2024-10-02 21:20] LABS: Magnesium 2.1 mg/dL (1.6-2.6)
[2024-10-02 21:32] LABS: Free T4 (Free Thyroxine) 0.86 ng/dL (0.71-1.85); Thyroid Stimulating Hormone 1.54 uIU/mL (0.32-4.0)
--- NOTE | 2024-10-02 22:12 | PC.NURSE ---
poc 148 per protocol give 0 units charted accordingly in mar
[2024-10-02 22:16] LABS: Glucose, Whole Blood 148 mg/dL (60-115)
[2024-10-02] MEDS: Enoxaparin Sodium 40 MG/0.4 ML SYRINGE SUBCUT (22:16)
[2024-10-02 22:30] VITALS: BP 135/70
[2024-10-02] MEDS: Valsartan 160 MG TABLET PO (22:30)
[2024-10-03 00:37] VITALS: BP 132/84; PULSE 98; RESP 18; TEMP 36; O2SAT 96
[2024-10-03 02:08] VITALS: BMI 37.7
[2024-10-03 03:23] VITALS: BP 129/58; PULSE 99; RESP 18; TEMP 36.9; O2SAT 97
[2024-10-03] MEDS: Omeprazole 20 MG CAPSULE.DR PO (05:23)
[2024-10-03] MEDS: 0.9 % Sodium Chloride Flush 3 ML SYRINGE IVFLUSH ×2 (05:23→08:07)
[2024-10-03 06:05] LABS: MANUAL DIFF FLAG NO
[2024-10-03 06:17] LABS: Basophils Absolute Auto 0.1 X10*3/uL (0.0-0.2); Basophils Percent Auto 0.9 % (0-2); Eosinophils Absolute Auto 0.2 X10*3/uL (0.0-0.4); Eosinophils Percent Auto 2.2 % (0-4); Hematocrit 29.1 % (37.0-47.0); Hemoglobin 8.8 g/dl (12.0-16.0); Imm Gran Abs Auto 0.03 X10*3/uL (0.00-0.03); Imm Gran Pct Auto 0.4 % (0.0-0.4); Lymphocytes Absolute Auto 2.5 X10*3/uL (1.2-4.9); Lymphocytes Percent Auto 30.7 % (20-40); Mean Corpuscular HGB Conc 30.2 g/dl (31.0-35.0); Mean Corpuscular Hemoglobin 21.1 pg (27.0-33.0); Mean Corpuscular Volume 69.8 fL (80.0-98.0); Mean Platelet Volume 9.9 fL (9.4-12.3); Monocytes Absolute Auto 0.9 X10*3/uL (0.1-1.2); Monocytes Percent Auto 11.2 % (2-11); Neutrophils Absolute Auto 4.5 x10*3/uL (2.0-8.3); Neutrophils Percent Auto 54.6 % (45-73); Platelet Count 422 X10*3/uL (160-400); Red Blood Count 4.17 X10*6/uL (4.20-5.50); Red Cell Distribution Width 15.9 % (11.0-16.0); White Blood Count 8.1 X10*3/uL (4.8-10.8)
[2024-10-03 06:27] LABS: Alanine Aminotransferase 12 U/L (0-31); Albumin Level 3.7 g/dL (3.5-5.0); Alkaline Phosphatase 76 U/L (39-117); Anion Gap 14 (12-20); Aspartate Amino Transferase 15 U/L (5-31); Bilirubin Total 0.5 mg/dL (0.0-1.0); Blood Urea Nitrogen 17 mg/dL (9-16); Calcium 8.8 mg/dL (8.4-10.2); Carbon Dioxide 24 mmol/L (22-29); Chloride 108 mmol/L (96-108); Cholesterol 140 mg/dL (<200); Creatinine Clr Calc Pharmacy 58.9; Estimated Glomerular Filt Rate > 60; Glucose Random 121 mg/dL (60-115); HDL Cholesterol 40 mg/dL (>40); LDL Cholesterol Calculated 70 mg/dL (<100); Potassium 3.8 mmol/L (3.3-5.1); Sodium 142 mmol/L (135-145); Total Protein 6.3 g/dL (6.5-8.0); Triglycerides 153 mg/dL (<150)
[2024-10-03 06:34] LABS: B Type Natriuretic Peptide 96 pg/mL (<100)
--- NOTE | 2024-10-03 07:00 | CA_ITS ---
Transthoracic Echocardiogram Patient (Last, First, Middle): Yahaira Herring J Gender: Female Date of : 1945 Age: 79 Procedure Date: 10/03/2024 Procedure Type: Transthoracic Echocardiogram Location: [facility] – [place] Height: 154.94 cm Weight: 90.27 kg BSA: 1.89 m2 Heart Rate: bpm BP: 155 / 77 mmHg Method Consultant: RADHA Baxter MD: [address] [facility] Dog Barber: Steven Aguilar MD Symptoms: TIA Study Quality: Adequate ECG Rhythm: Tachycardia Conclusions: - 1. Low normal LV ejection fraction of 50-55% with impaired relaxation filling pattern 2. Calcific aortic and mitral valve changes noted with cardiac valvular Dopplers within normal limits 3. Normal RV systolic pressure 4. No gross pericardial effusion Findings Left Ventricle Normal left ventricular cavity size. There is normal left ventricular wall thickness. The left ventricular systolic function is low normal. The visually estimated ejection fraction is between 50-55%. Spectral Doppler is indicative of an impaired relaxation filling pattern. Right Ventricle Normal right ventricular cavity size and systolic function. Atria The left atrium is normal in size. There is no evidence of interatrial shunt. The right atrium is normal in size. Aortic Valve There is mild calcification of the aortic valve. There is no aortic valve stenosis. There is no aortic valve regurgitation. Mitral Valve There is moderate anterior and posterior mitral leaflet thickening. There is mild anterior and moderate posterior mitral annular calcification. There is trace mitral valve regurgitation. There is no mitral valve stenosis. Pulmonic Valve The pulmonic valve was not well visualized. Tricuspid Valve Likely normal tricuspid valve structure and function. There is trace tricuspid valve regurgitation. The right ventricular systolic pressure is normal. The right ventricular systolic pressure is 20 mmHg. Normal right atrial pressure. There is no evidence of pulmonary hypertension. Great Vessels The pulmonary artery was not well visualized. There is no dilatation of the ascending aorta measuring 3.20 cm. Small plaque is seen in the sino tubular ridge. Venous The inferior vena cava is normal in size and collapses greater than 50% with inspiration. Pericardium/Pleural There is no evidence of pericardial effusion. Prior Study Comparison No prior study available for comparison. Measurements 2D Linear Measurements IVSd: 0.83 0.6-0.9/0.6-1.0 cm LVIDd: 3.99 3.9-5.3/4.2-5.9 cm LVIDd Index: 2.11 2.4-3.2/2.2-3.1 cm/m2 LVIDs: 1.91 2.0-3.6 cm LVPWd: 0.91 0.7-1.1 cm LA Diam: 3.60 2.7-3.8/3.0-4.0 cm LAIDs Index: 1.90 1.5-2.3 cm/m2 LV Mass: 129.29 67-162/88-224 g LV Mass Index: 68.41 43-95/49-115 g/m2 LVOT Diam: 2.00 3.0+(-)1.3 cm 2D Systolic Function EF 4C: 52.30 >55% EF 2C: 51.60 >55% EF BiP: 53.80 >55% Mitral Valve MV VTI: 0.35 MV Pk Cornel: 1.90 MV Mn Cornel: 1.24 MV Pk Grad: 14.00 MV Mn Grad: 7.00 MV Pk E: 1.33 MV PK A: 1.82 MV Decel Time: 314.00 E/A: 0.70 E'Lateral: 7.62 E'Medial: 7.07 E/E' Med: 18.80 E/E' Lat: 17.50 PHT: 92.00 MVA PHT: 2.39 MVA Continuity: 2.14 Decel [place]: 4.24 Aortic Valve AoV Pk Cornel: 1.85 AoV Mn Cornel: 1.23 AoV VTI: 0.34 AoV Pk Grad: 14.00 Aov Mn Grad: 7.00 AME Cont.VTI: 2.24 LVOT LVOT Pk Cornel: 1.32 LVOT Mn Cornel: 0.85 LVOT VTI: 0.24 LVOT Pk Grad: 7.00 LVOT Mn Grad: 3.00 LVOT Diam: 2.00 LVOT Area: 3.14 Diastolic Function MV Pk E: 1.33 MV Pk A: 1.82 E/A: 0.70 E'Medial: 7.07 E/E' Med: 18.80 E' Laterial: 7.62 E/E' Lat: 17.50 Right Ventricle TAPSE (mm): 25.40 TVS' Cornel: 14.00 Tricuspid Valve TR Pk Cornel: 2.06 TR Pk Grad: 17.00 RA Press: 3.00 RVSP: 20.00 Great Vessels Aorta Sinus of Valsalva: 3.70 2.0-3.5 cm Ao Asc: 3.20 2.1-3.4 cm Pulmonary Valve PV Pk Cornel: 1.19 Peak PV Grad: 6.00 Updated in Other Vendor System with Status of Final Steven Aguilar MD electronically signed on 10/03/2024 2:36:21 PM with status of Final
[2024-10-03 07:24] LABS: Estimated Average Glucose 143 mg/dL; Hemoglobin A1C 122.9497 umol/L; Hemoglobin A1c % 6.6 % (<6.0); Total Hemoglobin (HGBA1C) 2523.0738 umol/L
[2024-10-03 07:31] LABS: Glucose, Whole Blood 149 mg/dL (60-115)
[2024-10-03 07:35] VITALS: BP 155/77; PULSE 104; RESP 20; TEMP 36.7; O2SAT 95
[2024-10-03] MEDS: Aspirin 81 MG TAB.CHEW PO (08:06)
[2024-10-03] MEDS: Empagliflozin 10 MG TABLET PO (08:06)
[2024-10-03] MEDS: Cholecalciferol (Vitamin D3) 25 MCG TABLET PO (08:06)
[2024-10-03] MEDS: Multivitamin TABLET 1 TAB PO (08:06)
[2024-10-03] MEDS: Ascorbic Acid 500 MG TABLET PO (08:06)
[2024-10-03] MEDS: Calcium Oyster Shell Elemental 500 MG TABLET PO (08:06)
[2024-10-03] MEDS: Escitalopram Oxalate 10 MG TABLET PO (08:06)
--- NOTE | 2024-10-03 09:33 | P.CONGS_ITS ---
<Statement entered by Jose C Salinas MD - 10/03/24 16:16> I have seen and evaluated the patient and agree with history, findings, assessment and plan documented by Alem Kamara PA-c. I did review the CAT scan and did review the MRI. There does appear to be an acute stroke. At the current time agree with neurology evaluation. I do not think that the carotids were the source of embolization. Would start anticoagulation and have the patient follow up with us as an outpatient. Thank you for allowing us to assist in her care. If there are any questions or concerns please do not hesitate to contact us. History of Present Illness Consult details Consult date: 10/03/24 Narrative: We were consulted on Yahaira, for concerns of findings on head CT. She presented to the ER yesterday with 2 episodes, lasting appx 5min, of aphasia and generalized weakness. She was at the massage/PT office when these occurred. She has a medical hx pertinent for HLD, DMII, anxiety, depression, HTN, GERD, obesity, L4-5 and L3-4 sx in 2020 with chronic right foot drop, IBS, and Paget's disease of the bone. She was found, on head CT, to have 60% stenosis of the LICA and up to 50% stenosis of the DANIEL with a questionable 3mm aneurysm in the DANIEL at the carotid siphon. The pt states her symptoms have completely resolved and have not returned; she was admitted for a TIA. She states she feels good this morning. She denies any headaches, lightheadedness, dizziness, or weakness. She denies any vision changes. Review of Systems 2 Constitutional: Constitutional: Reports as per HPI and Denies weakness ENT: Reports Normal hearing present and Denies dizziness Cardiovascular: Cardiovascular: Reports as per HPI, Denies chest pain, Denies chest pain at rest, Denies chest pain with activity, Denies dyspnea and Denies dyspnea on exertion Respiratory: Respiratory: Reports as per HPI, Denies cough, Denies dyspnea and Denies dyspnea on exertion Gastrointestinal: Gastrointestinal: Reports as per HPI, Denies abdominal pain, Denies nausea and Denies vomiting Musculoskeletal: Musculoskeletal: Denies numbness Integumentary/Breasts: Skin/Breast: Reports as per HPI, Denies erythema and Denies wounds Neurologic: Reports Normal hearing present, Denies dizziness, Denies numbness, Denies Sensory deficit (Neuro) and Denies weakness Psychiatric: Psychiatric: Reports no additional psychiatric complaints Endocrine: Endocrine: Reports no additional endocrine complaints [facility] Past Medical History Medical History IBS (irritable bowel syndrome) Allergies Urticaria Dyslipidemia Type 2 diabetes mellitus without complication, without long-term current use of insulin Hearing impairment History of adenomatous polyp of colon Lumbar back pain with radiculopathy affecting left lower extremity Obesity (BMI 30-39.9) Paget's disease of the bone Osteopenia GERD (gastroesophageal reflux disease) Impaired fasting glucose Anxiety and depression Essential hypertension Surgical History Surgical History Hx of LASIK Hx of left cataract extraction Hx of tubal ligation H/O colonoscopy History of partial hysterectomy History of appendectomy History of cholecystectomy H/O breast surgery History of lumbar discectomy Social History Social History Household Members: Family Housing: House Are you a primary career development coordinator to a significant other at home: No Do you presently have visiting nurse or other home services: No Alcohol intake: never Patient Tobacco Use Status: Former Tobacco user e-Cigarette/Vaping Use: Never Used Second Hand Smoke Exposure: Yes service: No Current occupational status: retired Cognitive needs: No Hearing needs: No Vision needs: Yes (Reading glasses) Travel History Ebola Risk: Travel/Contact With Anyone From Affected Area/s: No Has Patient Experienced Ebola Symptoms: No Meds Allergies Allergy/AdvReac Type Severity Reaction Status Date / Time codeine AdvReac Intermediate seizure Verified 10/02/24 15:47 oxycodone [From Percocet] AdvReac Intermediate Nausea and Verified 10/02/24 15:47 Vomiting Active Medications: Current Medications Acetaminophen (Acetaminophen 325 Mg Tablet) 650 mg PO Q6H PRN PRN Reason: Pain, Mild 1-3,fever,headache Albuterol/Ipratropium (Albuterol/Iprat 2.5/0.5mg 3 Ml Ampul.Neb) 3 ml INHALE Q4H PRN PRN Reason: Shortness of Breath/Wheezing Ascorbic Acid (Ascorbic Acid 500 Mg Tablet) 500 mg PO DAILY [facility] Last Admin: 10/03/24 08:06 Dose: 500 mg Aspirin (Aspirin 81 Mg Tab.Chew) 81 mg PO DAILY [facility] Last Admin: 10/03/24 08:06 Dose: 81 mg Calcium Carbonate (Calcium Carbonate 750 Mg Tab.Chew) 750 mg PO Q4H PRN PRN Reason: Heartburn Calcium Carbonate (Calcium Oyster Shell Elemental 500 Mg Tablet) 500 mg PO DAILY [facility] Last Admin: 10/03/24 08:06 Dose: 500 mg Dextrose (Dextrose 50 % 25 Gm/50 Ml Syringe) 25 gm IVPUSH Q15M PRN; Protocol PRN Reason: per Hypoglycemia Standing Ord. Empagliflozin (Empagliflozin 10 Mg Tablet) 10 mg PO DAILY [facility] Last Admin: 10/03/24 08:06 Dose: 10 mg Enoxaparin Sodium (Enoxaparin Sodium 40 Mg/0.4 Ml Syringe) 40 mg SUBCUT Q24H [facility] Last Admin: 10/02/24 22:16 Dose: 40 mg Escitalopram Oxalate (Escitalopram Oxalate 10 Mg Tablet) 10 mg PO DAILY [facility] Last Admin: 10/03/24 08:06 Dose: 10 mg Glucose (Glucose Gel 15 Gm Gel..Gram.) 15 gm PO Q15M PRN; Protocol PRN Reason: per Hypoglycemia Standing Ord. Insulin Human Lispro (Insulin Lispro 100 Unit/Ml 3 Ml Vial) 0 unit SUBCUT QIDACHS [facility]; Protocol Last Admin: 10/03/24 07:41 Dose: Not Given Magnesium Hydroxide (Milk Of Magnesia 30 Ml Oral.Susp) 30 ml PO DAILY PRN PRN Reason: Constipation Melatonin (Melatonin 3 Mg Tablet) 6 mg PO BEDTIME PRN PRN Reason: Insomnia Multivitamins/Vitamin C (Multivitamin Tablet) 1 tab PO DAILY [facility] Last Admin: 10/03/24 08:06 Dose: 1 tab Omeprazole (Omeprazole 20 Mg Capsule.Dr) 20 mg PO DAILY@0630 [facility] Last Admin: 10/03/24 05:23 Dose: 20 mg Ondansetron HCl (Ondansetron Hcl 4 Mg/2 Ml Vial) 4 mg IVPUSH Q8H PRN PRN Reason: Nausea and Vomiting Sodium Chloride (0.9 % Sodium Chloride Flush 3 Ml Syringe) 3 ml IVFLUSH QSHIFT [facility] Last Admin: 10/03/24 08:07 Dose: 3 ml Valsartan (Valsartan 160 Mg Tablet) 160 mg PO BEDTIME [facility] Last Admin: 10/02/24 22:30 Dose: 160 mg Vitamin D (Cholecalciferol (Vitamin D3) 25 Mcg Tablet) 25 mcg PO DAILY [facility] Last Admin: 10/03/24 08:06 Dose: 25 mcg Home Medications ?Medication ?Instructions ?Recorded ?Confirmed ?Last Taken ?Type alpha lipoic acid 100 mg capsule 100 mg PO DAILY 11/02/22 10/02/24 10/02/24 History ascorbate calcium (vitamin C) 500 500 mg PO DAILY 11/02/22 10/02/24 10/02/24 History mg tablet calcium citrate 630 mg PO DAILY 11/02/22 10/02/24 10/02/24 History cholecalciferol (vitamin D3) 25 25 mcg PO DAILY 11/02/22 10/02/24 10/02/24 History mcg (1,000 unit) capsule multivitamin 1 tab PO DAILY 11/02/22 10/02/24 10/02/24 History methylcellulose (laxative) 500 mg 500 mg PO DAILY 08/07/24 10/02/24 10/02/24 History tablet (Citrucel) pantoprazole 20 mg tablet,delayed 20 mg PO DAILY@0630 08/07/24 10/02/24 10/02/24 History release citalopram 20 mg tablet 20 mg PO BEDTIME 10/02/24 10/02/24 10/01/24 History olmesartan 40 mg tablet 40 mg PO BEDTIME 10/02/24 10/02/24 10/01/24 History Physical Exam 2 Vital Signs: Vital Signs: Last Vital Signs Temp 98.1 F 10/03/24 07:35 Pulse 104 H 10/03/24 07:35 Resp 20 10/03/24 07:35 BP 155/77 H 10/03/24 07:35 Pulse Ox 95 10/03/24 07:35 O2 Del Method Room Air 10/03/24 07:35 BMI result Body Mass Index 37.7 Const: General: comfortable and no acute distress O rientation/consciousness: patient oriented x3 HEENT: Ears: hearing grossly normal bilaterally Resp: Effort & Inspection: normal respiratory effort and able to speak in complete sentences Auscultation: clear to auscultation bilaterally Cardio: Rate: regular rate Rhythm: regular rhythm Heart sounds: S1 normal heart sound present and S2 normal heart sound present Bruits: no abdominal aortic bruits, no carotid bruits, no femoral bruits and no renal bruits GI: Palpation (GI): No Abdominal aortic bruit present Neuro: General: patient oriented x3 Cranial nerves: Yes Normal hearing present Sensory Exam: No Sensory deficit (Neuro) Results Labs 10/03/24 05:52 10/03/24 05:52 Labs: Abnormal lab results 10/02/24 10/02/24 10/02/24 Range/Units 16:30 16:33 17:08 RBC (4.20-5.50) X10*6/uL Hgb 9.4 L (12.0-16.0) g/dl Hct 32.5 L (37.0-47.0) % MCV 71.7 L (80.0-98.0) fL MCH 20.8 L (27.0-33.0) pg MCHC 28.9 L (31.0-35.0) g/dl Plt Count 469 H (160-400) X10*3/uL [place] % (Auto) (2-11) % Band Neutrophils % 0 L (3-5) % PT 10.2 L (10.9-12.4) SEC BUN 17 H (9-16) mg/dL POC Glucose (60-115) mg/dL Random Glucose (60-115) mg/dL Hemoglobin A1c % 6.6 H (<6.0) % Total Protein (6.5-8.0) g/dL Triglycerides (<150) mg/dL HDL Cholesterol (>40) mg/dL Urine Glucose (UA) >=1000 H (Negative) mg/dL 10/02/24 10/03/24 10/03/24 Range/Units 22:10 05:52 07:27 RBC 4.17 L (4.20-5.50) X10*6/uL Hgb 8.8 L (12.0-16.0) g/dl Hct 29.1 L (37.0-47.0) % MCV 69.8 L (80.0-98.0) fL MCH 21.1 L (27.0-33.0) pg MCHC 30.2 L (31.0-35.0) g/dl Plt Count 422 H (160-400) X10*3/uL [place] % (Auto) 11.2 H (2-11) % Band Neutrophils % (3-5) % PT (10.9-12.4) SEC BUN 17 H (9-16) mg/dL POC Glucose 148 H 149 H (60-115) mg/dL Random Glucose 121 H (60-115) mg/dL Hemoglobin A1c % (<6.0) % Total Protein 6.3 L (6.5-8.0) g/dL Triglycerides 153 H (<150) mg/dL HDL Cholesterol 40 L (>40) mg/dL Urine Glucose (UA) (Negative) mg/dL Short CBC 10/02/24 10/03/24 Range/Units 16:30 05:52 WBC 8.7 8.1 (4.8-10.8) X10*3/uL Hgb 9.4 L 8.8 L (12.0-16.0) g/dl Hct 32.5 L 29.1 L (37.0-47.0) % Plt Count 469 H 422 H (160-400) X10*3/uL BMP 10/02/24 10/03/24 16:33 05:52 Sodium 141 142 Potassium 3.9 3.8 Chloride 107 108 Carbon Dioxide 25 24 BUN 17 H 17 H Creatinine 0.75 0.78 Calcium 9.3 8.8 Liver Function 10/02/24 10/03/24 Range/Units 16:33 05:52 Total Bilirubin 0.3 0.5 (0.0-1.0) mg/dL AST 17 15 (5-31) U/L ALT 15 12 (0-31) U/L Alkaline Phosphatase 84 76 (39-117) U/L Albumin 3.9 3.7 (3.5-5.0) g/dL Urine 10/02/24 Range/Units 16:33 Urine Color Yellow Urine Appearance Clear Urine pH 5.5 (5.0-9.0) Ur Specific [place] 1.025 (1.005-1.025) Urine Protein Negative (Neg-Trace) mg/dL Urine Glucose (UA) >=1000 H (Negative) mg/dL All other labs normal. Assessment and Plan (1) Carotid stenosis: Qualifiers: Laterality: left Qualified Code(s): I65.22 - Occlusion and stenosis of left carotid artery Status: Acute Plan We were consulted on Yahaira for concerns of findings on head CT of 60% stenosis of the LICA and up to 50% of the DANIEL. She presented to the ER yesterday with symptoms of a TIA; she had 2 periods of aphasia and weakness, both of which have now resolved. She was not on a statin or ASA at home. There is no acute surgical intervention. We await the results of the brain MRI. We recommend a daily ASA as well as a high dose statin. We will continue to monitor. Thank you for the consult. If there are any questions or concerns, please do not hesitate to reach out to us. Procedures Date of Service Date of Service: 10/03/24
[2024-10-03 11:13] LABS: Glucose, Whole Blood 141 mg/dL (60-115)
--- NOTE | 2024-10-03 11:14 | MHC.SL.SWA ---
Speech Pathologist Impression: Risk of Aspiration Due to: Dysphasia Diet Status: Liquid Consistency and Strategies for Safe Swallow: Liquid Intake Recommendation: Thin Liquid Intake Strategies: Solid Food Consistency: Dietary Recommendations: Regular Additional Modifications to Solid Foods: Oral Medication Intake: Whole with Liquid Please contact the pharmacy regarding appropriate crushable or liquid drug formulations that are available whenever modified delivery is recommended. Compensatory Strategies and Precautions to be Taken for Safe Swallow: Supervision While Eating and Drinking for Safe Swallow: None Needed Foods to Avoid: Swallowing Recommended Treatments: Recommendation for Speech: NA:Typical Evaluation Comment: Patient presented with all aspects of oral motor function and swallow WFL. Patient presented with all aspects of swallow function WFL. Patient presents with clear, fluent and articulate speech. Primary c/o of patient is difficulty swallowing larger pills. Patient was offered strategy of taking larger pills with puree, and on trial agreed it would be helpful. Recommend patient continue on Regular diet with thin liquids no restrictions, pills whole with liquid, with larger pills taken with puree. No further [facility] service indicated, will D/C. , RD advised of recommendations. Frequency/Duration: Date Range for Service Req: Timeline to reassess: Roving Court Reporter Clinican/Clinical Fellow: No Supervisory Statement: I have reviewed and agree with the student/clinical fellow's documentation: N/A Speech Language Pathologist: Nolvia Wyatt M.A., [facility]
[2024-10-03 11:15] VITALS: BP 134/67; PULSE 97; RESP 20; TEMP 36.7; O2SAT 95
--- NOTE | 2024-10-03 11:36 | MHC.CM.PN ---
ARISTIDES DELIVERED PT LIVES ALONE BUT HAS SUPPORT FROM HER DAUGHTER WHO LIVES NEARBY. PT IS ACTIVE WITH [facility] FOR P.T. AND USES [facility] FOR MOBILITY. + DRIVES. HCP ON FILE AND VERIFIED. PCP DR. HUDDLESTON DP: HOME WITH RESUMPTION OF [facility] IS THE GOAL. RETURN REFERRAL SENT. DAUGHTER WILL TRANSPORT HOME. CM WILL CONTINUE TO FOLLOW FOR ANY CHANGE TO DC PLAN/NEEDS.
--- NOTE | 2024-10-03 12:03 | P.PNIM_ITS ---
Subjective Subjective Date of Service: 10/03/24 Interval History: seen and examined this morning Follow-up for stroke rule out No further episodes of garbled speech Review of Systems Review of Systems: Yes all other systems are reviewed and are negative Constitutional Constitutional: Denies chills and Denies fever(s) Cardiovascular Cardiovascular: Denies chest pain and Denies palpitations Endocrine Endocrine: Denies palpitations Physical Exam 2 Vital Signs: Vital Signs: Last Vital Signs Temp 98.1 F 10/03/24 11:15 Pulse 97 10/03/24 11:15 Resp 20 10/03/24 11:15 BP 134/67 10/03/24 11:15 Pulse Ox 95 10/03/24 11:15 O2 Del Method Room Air 10/03/24 11:15 BMI result Body Mass Index 37.7 Const: General: cooperative, comfortable, no acute distress, alert and awake Nutritional Appearance: overweight Orientation/consciousness: patient oriented x3 Resp: Effort & Inspection: normal respiratory effort, able to speak in complete sentences, no respiratory distress and no use of accessory muscles Cardio: Rate: regular rate GI: Inspection: No distended Palpation (GI): Soft to palpation and nontender Neuro: General: patient oriented x3, moves all extremities and CN's II-XI intact bilaterally Objective Data Active Medications Acetaminophen (Acetaminophen 325 Mg Tablet) 650 mg PO Q6H PRN PRN Reason: Pain, Mild 1-3,fever,headache Albuterol/Ipratropium (Albuterol/Iprat 2.5/0.5mg 3 Ml Ampul.Neb) 3 ml INHALE Q4H PRN PRN Reason: Shortness of Breath/Wheezing Ascorbic Acid (Ascorbic Acid 500 Mg Tablet) 500 mg PO DAILY [facility] Last Admin: 10/03/24 08:06 Dose: 500 mg Documented By: TRISTA Aspirin (Aspirin 81 Mg Tab.Chew) 81 mg PO DAILY [facility] Last Admin: 10/03/24 08:06 Dose: 81 mg Documented By: TRISTA Calcium Carbonate (Calcium Carbonate 750 Mg Tab.Chew) 750 mg PO Q4H PRN PRN Reason: Heartburn Calcium Carbonate (Calcium Oyster Shell Elemental 500 Mg Tablet) 500 mg PO DAILY [facility] Last Admin: 10/03/24 08:06 Dose: 500 mg Documented By: TRISTA Dextrose (Dextrose 50 % 25 Gm/50 Ml Syringe) 25 gm IVPUSH Q15M PRN; Protocol PRN Reason: per Hypoglycemia Standing Ord. Empagliflozin (Empagliflozin 10 Mg Tablet) 10 mg PO DAILY [facility] Last Admin: 10/03/24 08:06 Dose: 10 mg Documented By: TRISTA Enoxaparin Sodium (Enoxaparin Sodium 40 Mg/0.4 Ml Syringe) 40 mg SUBCUT Q24H [facility] Last Admin: 10/02/24 22:16 Dose: 40 mg Documented By: ADIA Escitalopram Oxalate (Escitalopram Oxalate 10 Mg Tablet) 10 mg PO DAILY [facility] Last Admin: 10/03/24 08:06 Dose: 10 mg Documented By: TRISTA Glucose (Glucose Gel 15 Gm Gel..Gram.) 15 gm PO Q15M PRN; Protocol PRN Reason: per Hypoglycemia Standing Ord. Insulin Human Lispro (Insulin Lispro 100 Unit/Ml 3 Ml Vial) 0 unit SUBCUT QIDACHS [facility]; Protocol Last Admin: 10/03/24 11:42 Dose: Not Given Documented By: TRISTA Non-Admin Reason: No Insulin Coverage Magnesium Hydroxide (Milk Of Magnesia 30 Ml Oral.Susp) 30 ml PO DAILY PRN PRN Reason: Constipation Melatonin (Melatonin 3 Mg Tablet) 6 mg PO BEDTIME PRN PRN Reason: Insomnia Multivitamins/Vitamin C (Multivitamin Tablet) 1 tab PO DAILY [facility] Last Admin: 10/03/24 08:06 Dose: 1 tab Documented By: TRISTA Omeprazole (Omeprazole 20 Mg Capsule.Dr) 20 mg PO DAILY@0630 [facility] Last Admin: 10/03/24 05:23 Dose: 20 mg Documented By: ANDREY Ondansetron HCl (Ondansetron Hcl 4 Mg/2 Ml Vial) 4 mg IVPUSH Q8H PRN PRN Reason: Nausea and Vomiting Sodium Chloride (0.9 % Sodium Chloride Flush 3 Ml Syringe) 3 ml IVFLUSH QSHIFT [facility] Last Admin: 10/03/24 08:07 Dose: 3 ml Documented By: TRISTA Valsartan (Valsartan 160 Mg Tablet) 160 mg PO BEDTIME [facility] Last Admin: 10/02/24 22:30 Dose: 160 mg Documented By: ANJU Comments: med not in pyxis cam from pharmacy Vitamin D (Cholecalciferol (Vitamin D3) 25 Mcg Tablet) 25 mcg PO DAILY [facility] Last Admin: 10/03/24 08:06 Dose: 25 mcg Documented By: TRISTA Labs 10/03/24 05:52 10/03/24 05:52 Labs: Laboratory Results - last 24 hr 10/02/24 10/02/24 10/02/24 16:30 16:33 17:08 MCV 71.7 L MCH 20.8 L MCHC 28.9 L RDW 15.9 Plt Count 469 H MPV 10.1 Immature Gran % (Auto) Neut % (Auto) Lymph % (Auto) [place] % (Auto) Eos % (Auto) Baso % (Auto) Lymph # (Auto) [place] # (Auto) Eos # (Auto) Baso # (Auto) Abs Immat Gran (auto) Absolute Neuts (auto) Absolute Nucleated RBC 0.000 Nucleated RBC % (auto) 0.0 Neutrophils % (Manual) 58 Band Neutrophils % 0 L Lymphocytes % (Manual) 31 Monocytes % (Manual) 9 Eosinophils % (Manual) 2 Abs Neuts (Manual) 5.0 Lymphocytes # (Manual) 2.7 Monocytes # (Manual) 0.8 Eosinophils # (Manual) 0.2 Platelet Estimate INCREASED Plt Morphology Comment NORM RBC Morphology NORMAL PT 10.2 L INR 0.9 APTT 28.8 Anion Gap 13 Estim Creat Clear Calc 61.7 Estimated GFR > 60 POC Glucose Random Glucose 89 Estimat Average Glucose 143 Hemoglobin A1c % 6.6 H Calcium 9.3 Magnesium 2.1 Total Bilirubin 0.3 AST 17 ALT 15 Alkaline Phosphatase 84 B-Natriuretic Peptide Total Protein 6.8 Albumin 3.9 Triglycerides Cholesterol LDL Cholesterol, Calc HDL Cholesterol TSH 1.54 Free T4 0.86 Free T3 Cancelled Urine Color Yellow Urine Appearance Clear Urine pH 5.5 Ur Specific [place] 1.025 Urine Protein Negative Urine Glucose (UA) >=1000 H Urine Ketones Negative Urine Blood Negative Urine Nitrite Negative Ur Leukocyte Esterase Negative Urine RBC 0-2 Urine WBC 0-5 Ur Squamous Epith Cells 0-2 Urine Bacteria None Seen Hyaline Casts 0-2 10/02/24 10/03/24 10/03/24 22:10 05:52 07:27 MCV 69.8 L MCH 21.1 L MCHC 30.2 L RDW 15.9 Plt Count 422 H MPV 9.9 Immature Gran % (Auto) 0.4 Neut % (Auto) 54.6 Lymph % (Auto) 30.7 [place] % (Auto) 11.2 H Eos % (Auto) 2.2 Baso % (Auto) 0.9 Lymph # (Auto) 2.5 [place] # (Auto) 0.9 Eos # (Auto) 0.2 Baso # (Auto) 0.1 Abs Immat Gran (auto) 0.03 Absolute Neuts (auto) 4.5 Absolute Nucleated RBC 0.000 Nucleated RBC % (auto) 0.0 Neutrophils % (Manual) Band Neutrophils % Lymphocytes % (Manual) Monocytes % (Manual) Eosinophils % (Manual) Abs Neuts (Manual) Lymphocytes # (Manual) Monocytes # (Manual) Eosinophils # (Manual) Platelet Estimate Plt Morphology Comment RBC Morphology PT INR APTT Anion Gap 14 Estim Creat Clear Calc 58.9 Estimated GFR > 60 POC Glucose 148 H 149 H Random Glucose 121 H Estimat Average Glucose Hemoglobin A1c % Calcium 8.8 Magnesium Total Bilirubin 0.5 AST 15 ALT 12 Alkaline Phosphatase 76 B-Natriuretic Peptide 96 Total Protein 6.3 L Albumin 3.7 Triglycerides 153 H Cholesterol 140 LDL Cholesterol, Calc 70 HDL Cholesterol 40 L TSH Free T4 Free T3 Urine Color Urine Appearance Urine pH Ur Specific [place] Urine Protein Urine Glucose (UA) Urine Ketones Urine Blood Urine Nitrite Ur Leukocyte Esterase Urine RBC Urine WBC Ur Squamous Epith Cells Urine Bacteria Hyaline Casts 10/03/24 11:09 MCV MCH MCHC RDW Plt Count MPV Immature Gran % (Auto) Neut % (Auto) Lymph % (Auto) [place] % (Auto) Eos % (Auto) Baso % (Auto) Lymph # (Auto) [place] # (Auto) Eos # (Auto) Baso # (Auto) Abs Immat Gran (auto) Absolute Neuts (auto) Absolute Nucleated RBC Nucleated RBC % (auto) Neutrophils % (Manual) Band Neutrophils % Lymphocytes % (Manual) Monocytes % (Manual) Eosinophils % (Manual) Abs Neuts (Manual) Lymphocytes # (Manual) Monocytes # (Manual) Eosinophils # (Manual) Platelet Estimate Plt Morphology Comment RBC Morphology PT INR APTT Anion Gap Estim Creat Clear Calc Estimated GFR POC Glucose 141 H Random Glucose Estimat Average Glucose Hemoglobin A1c % Calcium Magnesium Total Bilirubin AST ALT Alkaline Phosphatase B-Natriuretic Peptide Total Protein Albumin Triglycerides Cholesterol LDL Cholesterol, Calc HDL Cholesterol TSH Free T4 Free T3 Urine Color Urine Appearance Urine pH Ur Specific [place] Urine Protein Urine Glucose (UA) Urine Ketones Urine Blood Urine Nitrite Ur Leukocyte Esterase Urine RBC Urine WBC Ur Squamous Epith Cells Urine Bacteria Hyaline Casts Assessment and Plan (1) TIA (transient ischemic attack): Status: Acute (2) Carotid stenosis: Status: Acute (3) Sinus tachycardia: Status: Acute Plan This is an 79-year-old female with past medical hypertension, [id number] diabetes mellitus type 2, chronic lumbar spondylolisthesis and recent 2nd surgery with chronic right footdrop, GERD, obesity, IBS-D on Citrucel, tachycardia, BIBA from massage therapy office for 2 episodes of garbled speeach when in the prone position on table, Symptoms resolved once out of this position. Staff called 911. Pt being admitted under observation for TIA with noted abnormal CTA head and neck . Acute stroke MRI of the brain +for small acute left parietal infarct; encephalomalacia in the bilateral cerebellar hemispheres left greater than right consistent with old infarcts -neurology consult pending -echo pending -aspirin, statin started -PT /OT - home with services Abnormal CTA head and neck Vascular consult pending Started on aspirin, statin Acute on chronic microcytic anemia No evidence of active bleeding H/H above transfusion threshold Outpatient follow-up Dysphagia Seen by speech therapy, cleared for regular diet Tachycardia Seen by Cardiology, plan to start labetalol 100 b.i.d. Echocardiogram pending as part of stroke workup HTN Olmesartan changed to valsartan inpatient, plan to decrease valsartan to 40 GERD continue pantoprazole NIDDM II sliding scale insulin patient only on lifestyle changes and diet for treatment at this time Lumbar spondylolisthesis and recent 2nd surgery recovery has been smooth with no complications patient does have chronic footdrop related to her lower back problems Outpatient follow-up DVT prophylaxis: Lovenox PPI prophylaxis: Pantoprazole Full code status Quality Stroke Does the patient have a stroke diagnosis?: No Reason for No Anti-thrombotic by Day Two: N/A - Med Ordered VTE Prior VTE?: No VTE Risk Level:: Medical - moderate - high VTE Device Contraindication: N/A - Device Ordered VTE Drug Contraindication: N/A - Med Ordered
--- NOTE | 2024-10-03 12:12 | PM.CNCAR ---
History of Present Illness History of Present Illness Date of Service: 10/03/24 Requesting physician: Gabby Way Consult reason: other (Tachycardia) Chief complaint: Aphasia Narrative: I was consulted to see Yahaira in cardiology consultation today for tachycardia noted during hospital admission. Patient noted to have sinus tachycardia. She is a pleasant 79-year-old female who presented with symptoms of TIA with garbled speech and subsequent workup shows 60% stenosis left carotid arteries without any acute stroke lesions. MRI is pending from today. Patient has never had prior vascular events as per her. She has no history of coronary disease or known carotid disease. She has longstanding history of hypertension and obesity. On admission when she presented she was noted to have fast heart rate and this was consistent with sinus tachycardia. She says she has had and noted 1st time the fast heart rate when she underwent spine surgery in [place] where she was living. Since then she has become aware of the fast heart rate. She has no symptoms of the fast heart rate. Denies any tachycardia. However every time she is in healthcare setting she would notice that heart rate is elevated. She has no exertional cardiac symptoms. Review of Systems Constitutional: Constitutional: Reports no additional constitutional complaints Eyes: Eyes: Reports no additional eye complaints Cardiovascular: Cardiovascular: Denies chest pain with activity, Reports rapid heart rate, Denies lightheadedness, Denies Loss of Consciousness, Denies palpitations and Denies dyspnea on exertion Respiratory: Respiratory: Reports no additional respiratory complaints and Denies dyspnea on exertion Gastrointestinal: Gastrointestinal: Reports no additional gastrointestinal complaints Genitourinary: Genitourinary: Reports no additional female genitourinary complaints Musculoskeletal: Musculoskeletal: Reports no additional musculoskeletal complaints Neurologic: Reports Abnormal speech present Endocrine: Endocrine: Denies palpitations [facility] Past Medical History Medical History IBS (irritable bowel syndrome) Allergies Urticaria Dyslipidemia Type 2 diabetes mellitus without complication, without long-term current use of insulin Hearing impairment History of adenomatous polyp of colon Lumbar back pain with radiculopathy affecting left lower extremity Obesity (BMI 30-39.9) Paget's disease of the bone Osteopenia GERD (gastroesophageal reflux disease) Impaired fasting glucose Anxiety and depression Essential hypertension Surgical History Surgical History Hx of LASIK Hx of left cataract extraction Hx of tubal ligation H/O colonoscopy History of partial hysterectomy History of appendectomy History of cholecystectomy H/O breast surgery History of lumbar discectomy Social History Social History Household Members: Family Housing: House Are you a primary animal care giver to a significant other at home: No Do you presently have visiting nurse or other home services: No Alcohol intake: never Patient Tobacco Use Status: Former Tobacco user e-Cigarette/Vaping Use: Never Used Second Hand Smoke Exposure: Yes service: No Current occupational status: retired Cognitive needs: No Hearing needs: No Vision needs: Yes (Reading glasses) Travel History Ebola Risk: Travel/Contact With Anyone From Affected Area/s: No Has Patient Experienced Ebola Symptoms: No Meds Allergies Allergy/AdvReac Type Severity Reaction Status Date / Time codeine AdvReac Intermediate seizure Verified 10/02/24 15:47 oxycodone [From Percocet] AdvReac Intermediate Nausea and Verified 10/02/24 15:47 Vomiting Active Medications: Current Medications Acetaminophen (Acetaminophen 325 Mg Tablet) 650 mg PO Q6H PRN PRN Reason: Pain, Mild 1-3,fever,headache Albuterol/Ipratropium (Albuterol/Iprat 2.5/0.5mg 3 Ml Ampul.Neb) 3 ml INHALE Q4H PRN PRN Reason: Shortness of Breath/Wheezing Ascorbic Acid (Ascorbic Acid 500 Mg Tablet) 500 mg PO DAILY [facility] Last Admin: 10/03/24 08:06 Dose: 500 mg Aspirin (Aspirin 81 Mg Tab.Chew) 81 mg PO DAILY [facility] Last Admin: 10/03/24 08:06 Dose: 81 mg Calcium Carbonate (Calcium Carbonate 750 Mg Tab.Chew) 750 mg PO Q4H PRN PRN Reason: Heartburn Calcium Carbonate (Calcium Oyster Shell Elemental 500 Mg Tablet) 500 mg PO DAILY [facility] Last Admin: 10/03/24 08:06 Dose: 500 mg Dextrose (Dextrose 50 % 25 Gm/50 Ml Syringe) 25 gm IVPUSH Q15M PRN; Protocol PRN Reason: per Hypoglycemia Standing Ord. Empagliflozin (Empagliflozin 10 Mg Tablet) 10 mg PO DAILY [facility] Last Admin: 10/03/24 08:06 Dose: 10 mg Enoxaparin Sodium (Enoxaparin Sodium 40 Mg/0.4 Ml Syringe) 40 mg SUBCUT Q24H [facility] Last Admin: 10/02/24 22:16 Dose: 40 mg Escitalopram Oxalate (Escitalopram Oxalate 10 Mg Tablet) 10 mg PO DAILY [facility] Last Admin: 10/03/24 08:06 Dose: 10 mg Glucose (Glucose Gel 15 Gm Gel..Gram.) 15 gm PO Q15M PRN; Protocol PRN Reason: per Hypoglycemia Standing Ord. Insulin Human Lispro (Insulin Lispro 100 Unit/Ml 3 Ml Vial) 0 unit SUBCUT QIDACHS [facility]; Protocol Last Admin: 10/03/24 11:42 Dose: Not Given Magnesium Hydroxide (Milk Of Magnesia 30 Ml Oral.Susp) 30 ml PO DAILY PRN PRN Reason: Constipation Melatonin (Melatonin 3 Mg Tablet) 6 mg PO BEDTIME PRN PRN Reason: Insomnia Multivitamins/Vitamin C (Multivitamin Tablet) 1 tab PO DAILY [facility] Last Admin: 10/03/24 08:06 Dose: 1 tab Omeprazole (Omeprazole 20 Mg Capsule.Dr) 20 mg PO DAILY@0630 [facility] Last Admin: 10/03/24 05:23 Dose: 20 mg Ondansetron HCl (Ondansetron Hcl 4 Mg/2 Ml Vial) 4 mg IVPUSH Q8H PRN PRN Reason: Nausea and Vomiting Sodium Chloride (0.9 % Sodium Chloride Flush 3 Ml Syringe) 3 ml IVFLUSH QSHIFT [facility] Last Admin: 10/03/24 08:07 Dose: 3 ml Valsartan (Valsartan 160 Mg Tablet) 160 mg PO BEDTIME [facility] Last Admin: 10/02/24 22:30 Dose: 160 mg Vitamin D (Cholecalciferol (Vitamin D3) 25 Mcg Tablet) 25 mcg PO DAILY [facility] Last Admin: 10/03/24 08:06 Dose: 25 mcg Home Medications ?Medication ?Instructions ?Recorded ?Confirmed ?Last Taken ?Type alpha lipoic acid 100 mg capsule 100 mg PO DAILY 11/02/22 10/02/24 10/02/24 History ascorbate calcium (vitamin C) 500 500 mg PO DAILY 11/02/22 10/02/24 10/02/24 History mg tablet calcium citrate 630 mg PO DAILY 11/02/22 10/02/24 10/02/24 History cholecalciferol (vitamin D3) 25 25 mcg PO DAILY 11/02/22 10/02/2425 History mcg (1,000 unit) capsule multivitamin 1 tab PO DAILY 11/02/22 10/02/24 10/02/24 History methylcellulose (laxative) 500 mg 500 mg PO DAILY 08/07/24 10/02/24 10/02/24 History tablet (Citrucel) pantoprazole 20 mg tablet,delayed 20 mg PO DAILY@0630 08/07/24 10/02/24 10/02/24 History release citalopram 20 mg tablet 20 mg PO BEDTIME 10/02/24 10/02/24 10/01/24 History olmesartan 40 mg tablet 40 mg PO BEDTIME 10/02/24 10/02/24 10/01/24 History Physical Exam Vital Signs: Vital Signs: Last Vital Signs Temp 98.1 F 10/03/24 11:15 Pulse 97 10/03/24 11:15 Resp 20 10/03/24 11:15 BP 134/67 10/03/24 11:15 Pulse Ox 95 10/03/24 11:15 O2 Del Method Room Air 10/03/24 11:15 BMI result Body Mass Index 37.7 Neuro: Speech: Abnormal speech present Objective Labs and Meds 10/03/24 05:52 10/03/24 05:52 Lab results: Laboratory Results - last 24 hr 10/02/24 10/02/24 10/02/24 16:30 16:33 17:08 WBC 8.7 RBC 4.53 Hgb 9.4 L Hct 32.5 L MCV 71.7 L MCH 20.8 L MCHC 28.9 L RDW 15.9 Plt Count 469 H MPV 10.1 Immature Gran % (Auto) Neut % (Auto) Lymph % (Auto) [place] % (Auto) Eos % (Auto) Baso % (Auto) Lymph # (Auto) Randolph # (Auto) Eos # (Auto) Baso # (Auto) Abs Immat Gran (auto) Absolute Neuts (auto) Absolute Nucleated RBC 0.000 Nucleated RBC % (auto) 0.0 Neutrophils % (Manual) 58 Band Neutrophils % 0 L Lymphocytes % (Manual) 31 Monocytes % (Manual) 9 Eosinophils % (Manual) 2 Abs Neuts (Manual) 5.0 Lymphocytes # (Manual) 2.7 Monocytes # (Manual) 0.8 Eosinophils # (Manual) 0.2 Platelet Estimate INCREASED Plt Morphology Comment NORM RBC Morphology NORMAL PT 10.2 L INR 0.9 APTT 28.8 Sodium 141 Potassium 3.9 Chloride 107 Carbon Dioxide 25 Anion Gap 13 BUN 17 H Creatinine 0.75 Estim Creat Clear Calc 61.7 Estimated GFR > 60 POC Glucose Random Glucose 89 Estimat Average Glucose 143 Hemoglobin A1c % 6.6 H Calcium 9.3 Magnesium 2.1 Total Bilirubin 0.3 AST 17 ALT 15 Alkaline Phosphatase 84 Troponin I High Sens 7.2 B-Natriuretic Peptide Total Protein 6.8 Albumin 3.9 Triglycerides Cholesterol LDL Cholesterol, Calc HDL Cholesterol TSH 1.54 Free T4 0.86 Free T3 Cancelled Urine Color Yellow Urine Appearance Clear Urine pH 5.5 Ur Specific [place] 1.025 Urine Protein Negative Urine Glucose (UA) >=1000 H Urine Ketones Negative Urine Blood Negative Urine Nitrite Negative Ur Leukocyte Esterase Negative Urine RBC 0-2 Urine WBC 0-5 Ur Squamous Epith Cells 0-2 Urine Bacteria None Seen Hyaline Casts 0-2 10/02/24 10/03/24 10/03/24 22:10 05:52 07:27 WBC 8.1 RBC 4.17 L Hgb 8.8 L Hct 29.1 L MCV 69.8 L MCH 21.1 L MCHC 30.2 L RDW 15.9 Plt Count 422 H MPV 9.9 Immature Gran % (Auto) 0.4 Neut % (Auto) 54.6 Lymph % (Auto) 30.7 Randolph % (Auto) 11.2 H Eos % (Auto) 2.2 Baso % (Auto) 0.9 Lymph # (Auto) 2.5 Randolph # (Auto) 0.9 Eos # (Auto) 0.2 Baso # (Auto) 0.1 Abs Immat Gran (auto) 0.03 Absolute Neuts (auto) 4.5 Absolute Nucleated RBC 0.000 Nucleated RBC % (auto) 0.0 Neutrophils % (Manual) Band Neutrophils % Lymphocytes % (Manual) Monocytes % (Manual) Eosinophils % (Manual) Abs Neuts (Manual) Lymphocytes # (Manual) Monocytes # (Manual) Eosinophils # (Manual) Platelet Estimate Plt Morphology Comment RBC Morphology PT INR APTT Sodium 142 Potassium 3.8 Chloride 108 Carbon Dioxide 24 Anion Gap 14 BUN 17 H Creatinine 0.78 Estim Creat Clear Calc 58.9 Estimated GFR > 60 POC Glucose 148 H 149 H Random Glucose 121 H Estimat Average Glucose Hemoglobin A1c % Calcium 8.8 Magnesium Total Bilirubin 0.5 AST 15 ALT 12 Alkaline Phosphatase 76 Troponin I High Sens B-Natriuretic Peptide 96 Total Protein 6.3 L Albumin 3.7 Triglycerides 153 H Cholesterol 140 LDL Cholesterol, Calc 70 HDL Cholesterol 40 L TSH Free T4 Free T3 Urine Color Urine Appearance Urine pH Ur Specific [place] Urine Protein Urine Glucose (UA) Urine Ketones Urine Blood Urine Nitrite Ur Leukocyte Esterase Urine RBC Urine WBC Ur Squamous Epith Cells Urine Bacteria Hyaline Casts 10/03/24 11:09 WBC RBC Hgb Hct MCV MCH MCHC RDW Plt Count MPV Immature Gran % (Auto) Neut % (Auto) Lymph % (Auto) Randolph % (Auto) Eos % (Auto) Baso % (Auto) Lymph # (Auto) Randolph # (Auto) Eos # (Auto) Baso # (Auto) Abs Immat Gran (auto) Absolute Neuts (auto) Absolute Nucleated RBC Nucleated RBC % (auto) Neutrophils % (Manual) Band Neutrophils % Lymphocytes % (Manual) Monocytes % (Manual) Eosinophils % (Manual) Abs Neuts (Manual) Lymphocytes # (Manual) Monocytes # (Manual) Eosinophils # (Manual) Platelet Estimate Plt Morphology Comment RBC Morphology PT INR APTT Sodium Potassium Chloride Carbon Dioxide Anion Gap BUN Creatinine Estim Creat Clear Calc Estimated GFR POC Glucose 141 H Random Glucose Estimat Average Glucose Hemoglobin A1c % Calcium Magnesium Total Bilirubin AST ALT Alkaline Phosphatase Troponin I High Sens B-Natriuretic Peptide Total Protein Albumin Triglycerides Cholesterol LDL Cholesterol, Calc HDL Cholesterol TSH Free T4 Free T3 Urine Color Urine Appearance Urine pH Ur Specific [place] Urine Protein Urine Glucose (UA) Urine Ketones Urine Blood Urine Nitrite Ur Leukocyte Esterase Urine RBC Urine WBC Ur Squamous Epith Cells Urine Bacteria Hyaline Casts Imaging Radiologist's impression: Impressions Brain MRI 10/03/24 10:15 IMPRESSION: Small acute left parietal infarcts. Findings were communicated to Myrna Yusuf by secure text message on 10/03/2024 at 11:18 AM and confirmed received at 11:19 AM. Electronically signed by: Dinh Siegel MD 10/03/2024 11:20 AM EDT Assessment and Plan (1) Sinus tachycardia: Status: Acute Asymptomatic sinus tachycardia not bothersome appears to be situational related to stressful situations and in the hospital. She has still elevated heart rate. Thyroid function is within normal limits. At this point time would suggest switching her antihypertensive therapy labetalol the counter both the blood pressure elevation as well as tachycardia. Started 100 mg b.i.d. but will require reduction of valsartan dose. No other specific therapy recommended. Stress mitigation strategies suggested. (2) TIA (transient ischemic attack): Status: Acute Patient admitted with symptoms suggestive of TIA along with left carotid stenosis. At this point time continue aggressive medical therapy. Both vascular surgery as well as Neurology consults are pending. MRI results are pending. I will continue with aspirin therapy and consider short term dual antiplatelet therapy. Also suggest high-intensity statin therapy with target goal LDL less than 55 mg/dL. Continue aggressive blood pressure control in the long run. Echo is pending No other cardiology workup is needed. Procedures Date of Service Date of Service: 10/03/24
--- NOTE | 2024-10-03 12:25 | PM.NEUROCN ---
History of Present Illness Data of Consult Service Date: 10/03/24 Primary Care Provider: Felipa Mckinnon MD [facility] Reason for consult: Stroke 79 years old woman with recent back surgery was getting leg massaged with an upside-down position. She said that when she put her head down and she was talking she could not talk well and everything was gibberish. She got surprised and stood up and felt fine. A little later, she when down again to get the massaged and had the same symptom again. There was no associated confusion but she was not able to speak about what she wanted to say. There was no associated headache. She never had such symptoms before and after that she fell fine. Review of Systems Review of Systems: No chest pain shortness of breath or palpitation or neck pain. [facility] Past Medical History Medical History IBS (irritable bowel syndrome) Allergies Urticaria Dyslipidemia Type 2 diabetes mellitus without complication, without long-term current use of insulin Hearing impairment History of adenomatous polyp of colon Lumbar back pain with radiculopathy affecting left lower extremity Obesity (BMI 30-39.9) Paget's disease of the bone Osteopenia GERD (gastroesophageal reflux disease) Impaired fasting glucose Anxiety and depression Essential hypertension Surgical History Surgical History Hx of LASIK Hx of left cataract extraction Hx of tubal ligation H/O colonoscopy History of partial hysterectomy History of appendectomy History of cholecystectomy H/O breast surgery History of lumbar discectomy Social History Social History Household Members: Family Housing: House Are you a primary intensive care specialist to a significant other at home: No Do you presently have visiting nurse or other home services: No Alcohol intake: never Patient Tobacco Use Status: Former Tobacco user e-Cigarette/Vaping Use: Never Used Second Hand Smoke Exposure: Yes service: No Current occupational status: retired Cognitive needs: No Hearing needs: No Vision needs: Yes (Reading glasses) Travel History Ebola Risk: Travel/Contact With Anyone From Affected Area/s: No Has Patient Experienced Ebola Symptoms: No Meds Allergies Allergy/AdvReac Type Severity Reaction Status Date / Time codeine AdvReac Intermediate seizure Verified 10/02/24 15:47 oxycodone [From Percocet] AdvReac Intermediate Nausea and Verified 10/02/24 15:47 Vomiting Active Medications: Current Medications Acetaminophen (Acetaminophen 325 Mg Tablet) 650 mg PO Q6H PRN PRN Reason: Pain, Mild 1-3,fever,headache Albuterol/Ipratropium (Albuterol/Iprat 2.5/0.5mg 3 Ml Ampul.Neb) 3 ml INHALE Q4H PRN PRN Reason: Shortness of Breath/Wheezing Ascorbic Acid (Ascorbic Acid 500 Mg Tablet) 500 mg PO DAILY [facility] Last Admin: 10/03/24 08:06 Dose: 500 mg Aspirin (Aspirin 81 Mg Tab.Chew) 81 mg PO DAILY [facility] Last Admin: 10/03/24 08:06 Dose: 81 mg Atorvastatin Calcium (Atorvastatin Calcium 80 Mg Tablet) 80 mg PO BEDTIME [facility] Calcium Carbonate (Calcium Carbonate 750 Mg Tab.Chew) 750 mg PO Q4H PRN PRN Reason: Heartburn Calcium Carbonate (Calcium Oyster Shell Elemental 500 Mg Tablet) 500 mg PO DAILY [facility] Last Admin: 10/03/24 08:06 Dose: 500 mg Dextrose (Dextrose 50 % 25 Gm/50 Ml Syringe) 25 gm IVPUSH Q15M PRN; Protocol PRN Reason: per Hypoglycemia Standing Ord. Empagliflozin (Empagliflozin 10 Mg Tablet) 10 mg PO DAILY [facility] Last Admin: 10/03/24 08:06 Dose: 10 mg Enoxaparin Sodium (Enoxaparin Sodium 40 Mg/0.4 Ml Syringe) 40 mg SUBCUT Q24H [facility] Last Admin: 10/02/24 22:16 Dose: 40 mg Escitalopram Oxalate (Escitalopram Oxalate 10 Mg Tablet) 10 mg PO DAILY [facility] Last Admin: 10/03/24 08:06 Dose: 10 mg Glucose (Glucose Gel 15 Gm Gel..Gram.) 15 gm PO Q15M PRN; Protocol PRN Reason: per Hypoglycemia Standing Ord. Insulin Human Lispro (Insulin Lispro 100 Unit/Ml 3 Ml Vial) 0 unit SUBCUT QIDACHS [facility]; Protocol Last Admin: 10/03/24 11:42 Dose: Not Given Labetalol HCl (Labetalol Hcl 100 Mg Tablet) 100 mg PO BID [facility]; Protocol Magnesium Hydroxide (Milk Of Magnesia 30 Ml Oral.Susp) 30 ml PO DAILY PRN PRN Reason: Constipation Melatonin (Melatonin 3 Mg Tablet) 6 mg PO BEDTIME PRN PRN Reason: Insomnia Multivitamins/Vitamin C (Multivitamin Tablet) 1 tab PO DAILY [facility] Last Admin: 10/03/24 08:06 Dose: 1 tab Omeprazole (Omeprazole 20 Mg Capsule.Dr) 20 mg PO DAILY@0630 [facility] Last Admin: 10/03/24 05:23 Dose: 20 mg Ondansetron HCl (Ondansetron Hcl 4 Mg/2 Ml Vial) 4 mg IVPUSH Q8H PRN PRN Reason: Nausea and Vomiting Sodium Chloride (0.9 % Sodium Chloride Flush 3 Ml Syringe) 3 ml IVFLUSH QSHIFT [facility] Last Admin: 10/03/24 08:07 Dose: 3 ml Valsartan (Valsartan 40 Mg Tablet) 40 mg PO BEDTIME [facility] Vitamin D (Cholecalciferol (Vitamin D3) 25 Mcg Tablet) 25 mcg PO DAILY [facility] Last Admin: 10/03/24 08:06 Dose: 25 mcg Home Medications ?Medication ?Instructions ?Recorded ?Confirmed ?Last Taken ?Type alpha lipoic acid 100 mg capsule 100 mg PO DAILY 11/02/22 10/02/24 10/02/24 History ascorbate calcium (vitamin C) 500 500 mg PO DAILY 11/02/22 10/02/24 10/02/24 History mg tablet calcium citrate 630 mg PO DAILY 11/02/22 10/02/24 10/02/24 History cholecalciferol (vitamin D3) 25 25 mcg PO DAILY 11/02/22 10/02/24 10/02/24 History mcg (1,000 unit) capsule multivitamin 1 tab PO DAILY 11/02/22 10/02/24 10/02/24 History methylcellulose (laxative) 500 mg 500 mg PO DAILY 08/07/24 10/02/24 10/02/24 History tablet (Citrucel) pantoprazole 20 mg tablet,delayed 20 mg PO DAILY@0608/07/24 10/02/24 10/02/24 History release citalopram 20 mg tablet 20 mg PO BEDTIME 10/02/24 10/02/24 10/01/24 History olmesartan 40 mg tablet 40 mg PO BEDTIME 10/02/24 10/02/24 10/01/24 History Physical Exam Vital Signs: Vital Signs: Last Vital Signs Temp 98.1 F 10/03/24 11:15 Pulse 97 05/15/25 11:15 Resp 20 10/03/24 11:15 BP 134/67 10/03/24 11:15 Pulse Ox 95 10/03/24 11:15 O2 Del Method Room Air 10/03/24 11:15 BMI result Body Mass Index 37.7 Neuro: Other: She is alert and awake with normal spontaneity of speech fluency comprehension and affect. Face is symmetrical. Visual hare are full. There was no focal weakness. Affect is normal. Results Labs 10/03/24 05:52 10/03/24 05:52 Labs: Short CBC 10/02/24 10/03/24 Range/Units 16:30 05:52 WBC 8.7 8.1 (4.8-10.8) X10*3/uL Hgb 9.4 L 8.8 L (12.0-16.0) g/dl Hct 32.5 L 29.1 L (37.0-47.0) % Plt Count 469 H 422 H (160-400) X10*3/uL BMP 10/02/24 10/03/24 16:33 05:52 Sodium 141 142 Potassium 3.9 3.8 Chloride 107 108 Carbon Dioxide 25 24 BUN 17 H 17 H Creatinine 0.75 0.78 Calcium 9.3 8.8 Liver Function 10/02/24 10/03/24 Range/Units 16:33 05:52 Total Bilirubin 0.3 0.5 (0.0-1.0) mg/dL AST 17 15 (5-31) U/L ALT 15 12 (0-31) U/L Alkaline Phosphatase 84 76 (39-117) U/L Albumin 3.9 3.7 (3.5-5.0) g/dL Urine 10/02/24 Range/Units 16:33 Urine Color Yellow Urine Appearance Clear Urine pH 5.5 (5.0-9.0) Ur Specific [place] 1.025 (1.005-1.025) Urine Protein Negative (Neg-Trace) mg/dL Urine Glucose (UA) >=1000 H (Negative) mg/dL MRI of brain revealed a small embolic looking left cortical frontoparietal area ischemic infarct and moderate amount of chronic microvascular ischemic changes. CTA of brain revealed moderate bilateral internal carotid artery stenosis and a small right ICA aneurysm. Assessment and Plan (1) Embolic cerebral infarction: Qualifiers: Precerebral and cerebral artery: middle cerebral artery Laterality of affected vessel: left Qualified Code(s): I63.412 - Cerebral infarction due to embolism of left middle cerebral artery Status: Acute Small embolic looking left middle cerebral artery area ischemic infarction resulting in transient motor aphasia. Carotid stenosis is moderate and did not require any surgical intervention. Likely cause of this stroke was cardiac source of embolism. My recommendation is to anticoagulate for next 3-6 months and during that time investigated her heart for atrial fibrillation. Blood pressure control and aggressive statin management is also recommended. (2) Cerebral aneurysm: Status: Acute This is a small lesion not requiring any intervention at this time. Clinical follow-up with imaging in couple of years is recommended. Procedures Date of Service Date of Service: 10/03/24
--- NOTE | 2024-10-03 14:11 | P.DS_ITS ---
DS: Providers Provider Date of Service: 10/03/24 Date of admission: 10/03/24 13:01 Date of discharge: 10/03/24 Primary care physician: Felipa Mckinnon MD Consults: 10/02/24 20:48 Consult to Neurology Routine Consulting Provider: [facility] Reason for consultation: TIA noted abnormal CTA head neck 10/02/24 20:49 Consult to Cardiology Routine Consulting Provider: [facility] Reason for consultation: Tachycardia, HTN Has provider been notified: No 10/02/24 21:13 Consult to Vascular Surgery Routine Consulting Provider: [facility] Reason for consultation: abnormal CTA Head and neck, TIA Attending physician on discharge: Gopi Frederick Discharging clinician: Myrna Yusuf DS: Diagnosis Discharge Diagnosis (1) Embolic cerebral infarction: Status: Acute (2) Cerebral aneurysm: Status: Acute DS: Summary Hospital Course Hospital Course: From H&P on the day of admission Patient is an 79-year-old female with past medical hypertension, jad-fbddkho-rdldqjjcm diabetes mellitus type 2, chronic lumbar spondylolisthesis and recent 2nd surgery with chronic right footdrop, GERD, obesity, IBS-D on Citrucel, tachycardia, fibroid cyst with removal from breast X5 ages [age], hysterectomy, cholecystectomy, appendectomy was brought in by ambulance to the emergency department from her massage therapist's office after experiencing 2 episodes of garbled speech when in the prone position in the massage chair. As soon as patient bent her head into the carrier at the top of the bench, patient realized that she could no longer make sense when she was speaking and acknowledged this. As soon as patient raised her head, she was able to speak coherently. This happened twice. The massage therapist called 911. Patient was otherwise asymptomatic. Patient had recent 2nd back surgery to the lumbar back and has chronic right footdrop. Currently patient denies any headache, visual changes, chest pain, shortness of breath at rest or with exertion. Patient is reporting issues with edema in the lower extremities currently in the feet only but was worse after surgery back in July for her back. Patient does state she has been tachycardic for unknown length of time and has not seen a regional safety manager for further workup. Patient does report chronic issues with dysphagia especially when taking her supplements. In the emergency department CTA of the head and neck was performed and noted significant stenosis of the left proximal internal carotid artery, 60% and up to 50% stenosis of the right ICA terminus. There is a question of 3 mm aneurysm of the right internal carotid artery at the carotid siphon. CT of the head noted moderate to severe chronic small-vessel ischemic disease with encephalomalacia in the superior aspect of the left cerebellum. No acute findings noted. Acute stroke MRI of the brain +for small acute left parietal infarct; encephalomalacia in the bilateral cerebellar hemispheres left greater than right consistent with old infarcts. Seen by neurology who thought possibly embolic source of infarct, recommended 3-6 months of oral anticoagulation. Bleeding precautions discussed, patient agreeable to starting anticoagulation, started on Eliquis. Started on statin. Seen by PT/OT who recommended continuing outpatient physical therapy which she has been getting at home. Echocardiogram showed EF 50-55% with impaired relaxation filling pattern. Abnormal CTA head and neck Mild carotid stenosis not likely contributing to acute stroke. Seen by vascular surgery, outpatient follow-up recommended but no acute surgical intervention required at this time. Cardiology recommended against both aspirin and Eliquis. Was started on statin as above Acute on chronic microcytic anemia No evidence of active bleeding H/H above transfusion threshold. Repeat H/H stable. Recommend outpatient follow-up Dysphagia Seen by speech therapy, cleared for regular diet Tachycardia Seen by Cardiology, plan to start labetalol 100 b.i.d. Echocardiogram pending as part of stroke workup HTN Olmesartan stopped for now, may need to resume at lower dose depending on response to labetalol Time Attestation Discharge Coordination Time (in mins): 36 Quality: Safe Use of Opioids Does Pt have an Active Cancer Diagnosis on the Problem List?: No Quality: Stroke Does the patient have a stroke diagnosis?: No Physical Exam Vital Signs: Vital Signs: Last Vital Signs Temp 98.1 F 10/03/24 11:15 Pulse 97 10/03/24 11:15 Resp 20 10/03/24 11:15 BP 134/67 10/03/24 11:15 Pulse Ox 95 10/03/24 11:15 O2 Del Method Room Air 10/03/24 11:15 BMI result Body Mass Index 37.7 Const: General: cooperative, comfortable, well developed, alert and awake Nutritional Appearance: average body habitus Orientation/consciousness: patient oriented x3 GI: Palpation (GI): Soft to palpation Neuro: General: patient oriented x3, moves all extremities and CN's II-XI intact bilaterally DS: Data Data Completed and Pending Completed studies during hospitalization [Text1]: Procedures Excision of Lumbar Vertebral Disc, Open Approach (08/13/24) Fusion of Lumbar Vertebral Joint with Interbody Fusion Device, Anterior Approach, Anterior Column, Open Approach (08/13/24) Insertion of Interspinous Process Spinal Stabilization Device into Lumbar Vertebral Joint, Open Approach (08/13/24) Removal of Interbody Fusion Device from Lumbosacral Joint, Open Approach (08/13/24) Labs on day of discharge: Laboratory Results - last 24 hr 10/02/24 10/02/24 10/02/24 16:30 16:33 17:08 WBC 8.7 RBC 4.53 Hgb 9.4 L Hct 32.5 L MCV 71.7 L MCH 20.8 L MCHC 28.9 L RDW 15.9 Plt Count 469 H MPV 10.1 Immature Gran % (Auto) Neut % (Auto) Lymph % (Auto) [place] % (Auto) Eos % (Auto) Baso % (Auto) Lymph # (Auto) [place] # (Auto) Eos # (Auto) Baso # (Auto) Abs Immat Gran (auto) Absolute Neuts (auto) Absolute Nucleated RBC 0.000 Nucleated RBC % (auto) 0.0 Neutrophils % (Manual) 58 Band Neutrophils % 0 L Lymphocytes % (Manual) 31 Monocytes % (Manual) 9 Eosinophils % (Manual) 2 Abs Neuts (Manual) 5.0 Lymphocytes # (Manual) 2.7 Monocytes # (Manual) 0.8 Eosinophils # (Manual) 0.2 Platelet Estimate INCREASED Plt Morphology Comment NORM RBC Morphology NORMAL PT 10.2 L INR 0.9 APTT 28.8 Sodium 141 Potassium 3.9 Chloride 107 Carbon Dioxide 25 Anion Gap 13 BUN 17 H Creatinine 0.75 Estim Creat Clear Calc 61.7 Estimated GFR > 60 POC Glucose Random Glucose 89 Estimat Average Glucose 143 Hemoglobin A1c % 6.6 H Calcium 9.3 Magnesium 2.1 Total Bilirubin 0.3 AST 17 ALT 15 Alkaline Phosphatase 84 Troponin I High Sens 7.2 B-Natriuretic Peptide Total Protein 6.8 Albumin 3.9 Triglycerides Cholesterol LDL Cholesterol, Calc HDL Cholesterol TSH 1.54 Free T4 0.86 Free T3 Cancelled Urine Color Yellow Urine Appearance Clear Urine pH 5.5 Ur Specific [place] 1.025 Urine Protein Negative Urine Glucose (UA) >=1000 H Urine Ketones Negative Urine Blood Negative Urine Nitrite Negative Ur Leukocyte Esterase Negative Urine RBC 0-2 Urine WBC 0-5 Ur Squamous Epith Cells 0-2 Urine Bacteria None Seen Hyaline Casts 0-2 10/02/24 10/03/24 10/03/24 22:10 05:52 07:27 WBC 8.1 RBC 4.17 L Hgb 8.8 L Hct 29.1 L MCV 69.8 L MCH 21.1 L MCHC 30.2 L RDW 15.9 Plt Count 422 H MPV 9.9 Immature Gran % (Auto) 0.4 Neut % (Auto) 54.6 Lymph % (Auto) 30.7 [place] % (Auto) 11.2 H Eos % (Auto) 2.2 Baso % (Auto) 0.9 Lymph # (Auto) 2.5 [place] # (Auto) 0.9 Eos # (Auto) 0.2 Baso # (Auto) 0.1 Abs Immat Gran (auto) 0.03 Absolute Neuts (auto) 4.5 Absolute Nucleated RBC 0.000 Nucleated RBC % (auto) 0.0 Neutrophils % (Manual) Band Neutrophils % Lymphocytes % (Manual) Monocytes % (Manual) Eosinophils % (Manual) Abs Neuts (Manual) Lymphocytes # (Manual) Monocytes # (Manual) Eosinophils # (Manual) Platelet Estimate Plt Morphology Comment RBC Morphology PT INR APTT Sodium 142 Potassium 3.8 Chloride 108 Carbon Dioxide 24 Anion Gap 14 BUN 17 H Creatinine 0.78 Estim Creat Clear Calc 58.9 Estimated GFR > 60 POC Glucose 148 H 149 H Random Glucose 121 H Estimat Average Glucose Hemoglobin A1c % Calcium 8.8 Magnesium Total Bilirubin 0.5 AST 15 ALT 12 Alkaline Phosphatase 76 Troponin I High Sens B-Natriuretic Peptide 96 Total Protein 6.3 L Albumin 3.7 Triglycerides 153 H Cholesterol 140 LDL Cholesterol, Calc 70 HDL Cholesterol 40 L TSH Free T4 Free T3 Urine Color Urine Appearance Urine pH Ur Specific [place] Urine Protein Urine Glucose (UA) Urine Ketones Urine Blood Urine Nitrite Ur Leukocyte Esterase Urine RBC Urine WBC Ur Squamous Epith Cells Urine Bacteria Hyaline Casts 10/03/24 11:09 WBC RBC Hgb Hct MCV MCH MCHC RDW Plt Count MPV Immature Gran % (Auto) Neut % (Auto) Lymph % (Auto) [place] % (Auto) Eos % (Auto) Baso % (Auto) Lymph # (Auto) [place] # (Auto) Eos # (Auto) Baso # (Auto) Abs Immat Gran (auto) Absolute Neuts (auto) Absolute Nucleated RBC Nucleated RBC % (auto) Neutrophils % (Manual) Band Neutrophils % Lymphocytes % (Manual) Monocytes % (Manual) Eosinophils % (Manual) Abs Neuts (Manual) Lymphocytes # (Manual) Monocytes # (Manual) Eosinophils # (Manual) Platelet Estimate Plt Morphology Comment RBC Morphology PT INR APTT Sodium Potassium Chloride Carbon Dioxide Anion Gap BUN Creatinine Estim Creat Clear Calc Estimated GFR POC Glucose 141 H Random Glucose Estimat Average Glucose Hemoglobin A1c % Calcium Magnesium Total Bilirubin AST ALT Alkaline Phosphatase Troponin I High Sens B-Natriuretic Peptide Total Protein Albumin Triglycerides Cholesterol LDL Cholesterol, Calc HDL Cholesterol TSH Free T4 Free T3 Urine Color Urine Appearance Urine pH Ur Specific [place] Urine Protein Urine Glucose (UA) Urine Ketones Urine Blood Urine Nitrite Ur Leukocyte Esterase Urine RBC Urine WBC Ur Squamous Epith Cells Urine Bacteria Hyaline Casts Discharge Plan Discharge Anticipated Discharge Date/Time: 10/03/24 14:13 Patient Disposition: Home Health Service Discharge Diagnosis: acute stroke tachycardia Referrals: Jose C Salinas MD [Physician] - 1 Week Po,Felipa Oreilly MD [Primary Care Provider] - 1 Week Steven Aguilar MD [Physician] - 1 Week (?embolic stroke; ILR ) Discharge Medications: New Eliquis 5 mg Tablet 5 mg PO BID 90 Days Qty: 180 0RF labetalol 100 mg Tablet 100 mg PO BID 90 Days Qty: 180 0RF Protocol: Hold for SBP/HR < HOLD for SBP < : 90 HOLD for HR < : 60 atorvastatin [Lipitor] 40 mg tablet 40 mg PO BEDTIME Qty: 90 0RF Continued Jardiance 10 mg tablet 10 mg PO DAILY Qty: 30 0RF Citrucel 500 mg Tablet 500 mg PO DAILY pantoprazole 20 mg tablet,delayed release (DR/EC) 20 mg PO DAILY@0630 citalopram 20 mg tablet 20 mg PO BEDTIME alpha lipoic acid 100 mg capsule 100 mg PO DAILY calcium citrate 250 mg calcium tablet 630 mg PO DAILY cholecalciferol (vitamin D3) 25 mcg (1,000 unit) capsule 25 mcg PO DAILY multivitamin Tablet 1 tab PO DAILY ascorbate calcium (vitamin C) 500 mg tablet 500 mg PO DAILY Discontinued olmesartan 40 mg tablet 40 mg PO BEDTIME Discharge Orders: Discharge Order (Routine); Ordered 10/03/24 Ordered By: Myrna Yusuf Activity on Discharge: As tolerated Stand Alone Forms: Patient Portal Discharge page Print Language: Cypriot Care Plan Goals: See below Health Concerns: Acute stroke, possible embolic Mild carotid stenosis Sinus tachycardia Plan of Treatment: Start taking the blood thinner Eliquis, do not take NSAIDs in combination with Eliquis Start taking lipitor to lower cholesterol Start taking labetalol for blood pressure control and heart rate control. For now stop olmesartan. Outpatient follow-up with PCP/Cardiology for close blood pressure monitoring, may need to be resumed at lower dose Outpatient follow-up appointment with Cardiology for implantable loop recorder to evaluate for presence of atrial fibrillation Outpatient follow-up with vascular surgery to monitor carotid stenosis Outpatient follow-up with PCP for monitoring LFTs periodically as you will be taking a statin and to monitor anemia Assessment: See discharge summary
[2024-10-03 14:25] LABS: Hematocrit 30.5 % (37.0-47.0); Hemoglobin 9.2 g/dl (12.0-16.0)
[2024-10-03 14:53] VITALS: BP 134/61; PULSE 93; RESP 17; TEMP 36.5; O2SAT 95
--- NOTE | 2024-10-03 15:12 | MHC.CM.PN ---
DP: IMM DELIVERED PT HAS BEEN MEDICALLY CLEARED FOR DC HOME WITH RESUMPTION OF [facility]. ZENIA MELTON PROVIDED. PT'S DAUGHTER WILL TRANSPORT HOME
--- NOTE | 2024-10-03 15:45 | MHC.STROKE ---
Met with patient in room 468. Pt awake, alert and oriented x 4. Sitting on edge of bed, watching TV. Pt pleasant, engaged in conversation. Stroke Education provided. Pamphlet reviewed. We discussed patient's medical history, medications, diet, activity, and social history. All questions answered. Will continue to assist as needed. Plan is for dc home today. Pt agreeable to plan.
== END 2024-10-03 16:07 | disposition home health service (06) | DRG 66 ==
LOC: HO.ED 16:33 → HO.EDOVER 19:52 → HO.IMC 22:57
PROVIDERS: Nurse Practitioner Family; Admitting Provider Student in an Organized Health Care Education/Training Program; Emergency Provider Internal Medicine; PCP Internal Medicine; Visit Provider Physician Assistant Medical
DX: I63.412 Cerebral infarction due to embolism of left middle cerebral artery (principal); R29.700 NIHSS score 0; R13.10 Dysphagia, unspecified; R00.0 Tachycardia, unspecified; I10 Essential (primary) hypertension; R47.01 Aphasia; K21.9 Gastro-esophageal reflux disease without esophagitis; E11.9 Type 2 diabetes mellitus without complications; I67.1 Cerebral aneurysm, nonruptured; D50.9 Iron deficiency anemia, unspecified; M43.16 Spondylolisthesis, lumbar region; I65.22 Occlusion and stenosis of left carotid artery; K58.0 Irritable bowel syndrome with diarrhea; Z87.891 Personal history of nicotine dependence; Z79.899 Other long term (current) drug therapy
CPT/HCPCS: 36415; 70450; 70496; 70498; 70551; 80053; 80061; 81001; 82947; 83036; 83735; 83880; 84439; 84443; 84481; 84484; 85007; 85014; 85018; 85025; 85027; 85610; 85730; 92610; 93005; 93306; 97161; 97165; 99222; 99285; J1650; Q9967

== ENCOUNTER → 2024-10-02 16:52 | Outpatient (BNV) | payer MEDICARE, SELFPAY | PROVIDERS: Emergency Provider Internal Medicine; PCP Internal Medicine; Visit Provider Radiology Diagnostic Radiology | DX: I65.23 Occlusion and stenosis of bilateral carotid arteries (principal); I63.542 Cerebral infarction due to unspecified occlusion or stenosis of left cerebellar artery | CPT/HCPCS: 70450; 70496; 70498 ==

== ENCOUNTER → 2024-10-02 16:53 | Outpatient (BNV) | payer MEDICARE, SELFPAY | PROVIDERS: Admitting Provider Student in an Organized Health Care Education/Training Program; Emergency Provider Internal Medicine; PCP Internal Medicine; Visit Provider Internal Medicine Cardiovascular Disease | DX: R94.31 Abnormal electrocardiogram [ECG] [EKG] (principal); R53.1 Weakness | CPT/HCPCS: 93010 ==

== ENCOUNTER 2024-10-02 19:51 | Outpatient (BNV) | payer MEDICARE, SELFPAY | END 2024-10-03 10:15 | PROVIDERS: Admitting Provider Student in an Organized Health Care Education/Training Program; Emergency Provider Internal Medicine; PCP Internal Medicine; Visit Provider Radiology Diagnostic Radiology | DX: I63.532 Cerebral infarction due to unspecified occlusion or stenosis of left posterior cerebral artery (principal) | CPT/HCPCS: 70551 ==

== ENCOUNTER → 2024-10-02 19:51 | Outpatient (BNV) | payer MEDICARE, SELFPAY | PROVIDERS: Admitting Provider Student in an Organized Health Care Education/Training Program; Emergency Provider Internal Medicine; PCP Internal Medicine; Visit Provider Nurse Practitioner Family | DX: G45.9 Transient cerebral ischemic attack, unspecified (principal) | CPT/HCPCS: 99223 ==

== ENCOUNTER → 2024-10-02 19:51 | Outpatient (BNV) | payer MEDICARE, SELFPAY | PROVIDERS: Admitting Provider Student in an Organized Health Care Education/Training Program; Emergency Provider Internal Medicine; PCP Internal Medicine; Visit Provider Psychiatry & Neurology Neurology | DX: I69.320 Aphasia following cerebral infarction (principal) | CPT/HCPCS: 99222 ==

== ENCOUNTER → 2024-10-02 19:51 | Outpatient (BNV) | payer MEDICARE, SELFPAY | PROVIDERS: Admitting Provider Student in an Organized Health Care Education/Training Program; Emergency Provider Internal Medicine; PCP Internal Medicine; Visit Provider Internal Medicine Cardiovascular Disease | DX: R00.0 Tachycardia, unspecified (principal); G45.9 Transient cerebral ischemic attack, unspecified | CPT/HCPCS: 99222 ==

== ENCOUNTER → 2024-10-03 07:00 | Outpatient (BNV) | payer MEDICARE, SELFPAY | PROVIDERS: Admitting Provider Student in an Organized Health Care Education/Training Program; Emergency Provider Internal Medicine; PCP Internal Medicine; Visit Provider Internal Medicine Cardiovascular Disease | DX: I35.0 Nonrheumatic aortic (valve) stenosis (principal); I34.81 Nonrheumatic mitral (valve) annulus calcification | CPT/HCPCS: 93306 ==

== ENCOUNTER → 2024-10-03 13:01 | Outpatient (BNV) | payer MEDICARE, SELFPAY | PROVIDERS: Admitting Provider Student in an Organized Health Care Education/Training Program; Emergency Provider Internal Medicine; PCP Internal Medicine; Visit Provider Physician Assistant Surgical | DX: I65.22 Occlusion and stenosis of left carotid artery (principal) | CPT/HCPCS: 99222 ==

== ENCOUNTER 2024-10-09 09:29 | Outpatient (REF) | payer MEDICARE, SELFPAY ==
--- NOTE | ~2024-10-09 | XR_ITS ---
CLINICAL HISTORY: M51.369 - Other intervertebral disc degeneration, lumbar region without ... --- Add itional Notes or Special Instructions: AP LAT FLEX EX 4 views lumbar spine Comparison: DX/NE/SR - XR LUMBAR SPINE 4V MIN - 07/26/24 10:43 EST Findings: Posterior fusion with bilateral transpedicular screws at L4 and L5 with intervertebral disc spacers at L4-L5 and L5-S1. No perihardware lucency or fracture. Grade 1 anterolisthesis of L4 on L5 is similar to prior. Grade 1 anterolisthesis of L5 on S1 appears improved from prior. No acute fracture or dislocation. Mild disc space narrowing in the remaining levels. Aortic atherosclerosis. IMPRESSION: 1. No acute osseous injury. 2. Posterior fusion hardware at L4-L5 and L5-S1 without evidence of hardware failure. This document has been electronically signed by: Ricci Peters MD on 10/09/2024 21:43:40
--- OUTSIDE RECORDS SUMMARY | 2024-10-10 09:46 | XMS_ITS | Clinical Summary ---
Author Organization [employer] Address [address] [facility] [address] [place] [address] Care Team Providers Care Dietetics Teacher Name Role Phone Unavailable Primary Care Provider [...] patient's age to complete this topic Insurance [facility] MED CARE MEDICARE
== END 2024-10-09 09:30 | disposition home or self-care (01) ==
LOC: HO.HOSX 09:29
PROVIDERS: Visit Provider Neurological Surgery
DX: Z98.1 Arthrodesis status (principal); M51.369 Other intervertebral disc degeneration, lumbar region without mention of lumbar back pain or lower extremity pain; M43.16 Spondylolisthesis, lumbar region
CPT/HCPCS: 72110; 99212

== ENCOUNTER 2024-10-09 13:07 | Outpatient (AMB) | payer MEDICARE, SELFPAY ==
--- NOTE | 2024-10-09 13:19 | HO.SPINEOV ---
Intake Visit Reasons: 2nd post op with Xray Intake Note: Mrs. Herring is here today for her 2nd post op with x-rays. Director Of Market Intelligence Required: No Allergies codeine Adverse Reaction (Intermediate, Verified 10/02/24 15:47) seizure oxycodone [From Percocet] Adverse Reaction (Intermediate, Verified 10/02/24 15:47) Nausea and Vomiting Assessment & Plan Assessment & Plan (1) S/P lumbar spinal fusion: Code(s): Z98.1 - Arthrodesis status Category: Surgical Plan Dear colleague, On October 08, 2024, I saw for 2nd postoperative visit Yahaira Herring. She underwent a minimally invasive L4-5 oblique lumbar interbody fusion to correct adjacent degenerative disc disease with spinal stenosis and nerve compression. The excruciating left sciatica has disappeared. She still has the persistent right footdrop as expected. She is currently doing physical therapy and will get an ankle foot orthosis to assist with her ambulation. Overall, she is doing quite well. The incisions are healed. Today's x-ray shows good position of the interbody device him posterior instrumentation. I would like to follow-up 1 more time in 6 months with a repeat x-ray. Thank you for allowing me take care of your patient. Sd Barr MD, PhD Spine Fellowship Trained Neurosurgeon Director, [facility] Orders: Orders XR lumbar spine 4V min Today M43.16 - Spondylolisthesis, lumbar region, M51.369 - Other intervertebral disc degeneration, lumbar region without mention of lumbar back pain or lower extremity pain Coding Level of Care Code Global (24203) Diagnoses S/P lumbar spinal fusion Z98.1
--- OUTSIDE RECORDS SUMMARY | 2024-10-09 13:43 | XMS_ITS ---
Author Organization [facility] Address [address] [place] [address] Care Team Providers Care Automobile Tester Name Role Phone Lisa Card Primary Care Provider UnavailAnne Tobar [phone] Encounters Encounter Location Date Provider Diagnosis [facility] [address] [place] [address] 08/13/2024 Anne Lin Plan Of Treatment Next Appt Details Provider Name:Sal Mace , 10/15/2024 01:00:00 PM, [address] [place], [address], Progress Notes * SUSYAbdulkadirelbaDOB: [birth year] (79 yo F)Acc No.[id number]:08/13/2024 Progress Notes Patient:?Abdulkadir JAINrietta Provider:?Anne Lin DPM [...] DPM Date:? Generated for Jose Manuel duff/Karon/Maisha on:?10/09/2024 01:43 PM EDT
--- OUTSIDE RECORDS SUMMARY | 2024-10-09 13:43 | XMS_ITS ---
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 Generated for Printi ng/Fanicholasg/eTransmitting on:?10/09/2024 01:42 PM EDT
--- OUTSIDE RECORDS SUMMARY | 2024-10-09 13:43 | XMS_ITS | Patient Health Record ---
Author Organization [facility] Address [address] [place] [address] Care Team Providers Care Meter Engineer Name Role Phone Stephie Lisa Primary Care Provider Unavailab Anne Borjas Unavailable [phone] Allergies Allergen (clinical drug ingredient) Drug/Non Drug [...] Status Risk Notes Problem Pain in limb (42094347) Pain in left toe(s) (M79.675) Active confirmed Encounters Encounter Location Date Provider [facility] [address] [place] [address] [facility]2024 [facility] [address] [place] [address] [facility] [address] 09/26/2024 Anne Lin Plan Of Treatment Pending Test Test Name Order Date [id number] NAIL, 6 OR MORE 06/14/2012 [id number] NAIL, 1-5 02/25/2013 [id number] NAIL, 1-5 08/29/2012 [id number] NAIL, 1-5 11/28/2012 [id number] Plate 11/28/2012 [id number] Plate 02/25/2013 [id number] Plate 06/14/2012 [id number] Plate 08/29/2012 Next Appt Details Provider Name:Sal Mace , 10/15/2024 01:00:00 PM, [address] [place], [address], Insurance Providers Payer Name Payer Address Payer Phone Subscriber Number Group Number Insured Name Patient Relationship to Insured Coverage Start Date Coverage End Date Medicare [facility] [address] [place] [address] [id number] Yahaira Herring Self - patient is the insured 0 [employer] [address] [place] [address] [phone] [id number] Yahaira Herring Self - patient is the insured 0 Medical (General) History Medical History History ICD Code mumps measles high blood pressure chicken pox Pagets disease of bones arthritis Cataracts Menieres disease Reflux ( GERD) Sciatica Joint implants/screws Surgical History Surgery Date(Month/Year) nueroma left foot CABG surgery
--- OUTSIDE RECORDS SUMMARY | 2024-10-09 13:43 | XMS_ITS | Clinical Summary ---
Author Organization [facility] Address [address] [facility] [address] [place] [address] Care Team Providers Care Meat Team Lead Name Role Phone Unavailable Primary Care Provider [...] patient's age to complete this topic Meningococcal B Vaccine Aged Out No l onger eligible based on patient's age to complete this topic Meningococcal Vaccine Aged Out No rachael shalom eligible based on patient's age to complete this topic RSV under 20 months Aged Out No longe r eligible based on patient's age to complete this topic Rotavirus Vaccines Aged Out No longer eligible based on patient's age to complete this topic Insurance [facility] MEDICARE
--- OUTSIDE RECORDS SUMMARY | 2024-10-09 13:43 | XMS_ITS | Patient Health Record ---
Author Organization [facility] Physician Yoseph es Billing Info Address [address] [place] [address] [place] [address] Support Name Relationship Address Phone Tricia Real Emergency Contact [address] [place] [address] Yahaira Herring Guarantor Unknown Allergies Allergen [...] Problem Status W/U Status Risk Notes Problem [id number] Spondylolisthesi s, lumbar region (M43.16) Active confirmed Problem 807687540 Radiculopathy, lumbar region (M54.16) Active confirmed Problem 26368975 Spinal stenosis, 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) Active confirmed Problem 719098997 Lumbar radiculopathy (M54.16) Active confirmed Problem 423443158 Lumbar spondylos is (M47.816) Active confirmed Problem 208176000 Lumbar radiculopathy, chronic (M54.16) Active confirmed Problem 416677619 Spondylolisthesi s, unspecified spinal region (M43.10) Active confirmed Problem 49529793 Hypertension, unspecified type (I10) Active confirmed Problem 314277139 Gastroesophageal reflux disease, unspecified whether esophagitis present (K21.9) Active confirmed Plan Of Treatment Future Test Test Name Order Date MRI-LUMBAR SPINE; W/O CONTRAST MATL (721 48) 08/18/2020 XRAY- SPINE LUMBAR AP AND LAT/SPOT (7210 0)([facility]) 11/12/2020 CT- LUMBAR SPINE W/O CONTRAST (46068)([facility]) 01/12/2021 XRAY- SPINE LUMBAR AP AND LAT/SPOT (7210 0)([facility]) 03/16/2021 CT- [facility] W/O CONTRAST (19653[facility] 07/13/2021 Insurance Providers Payer Name Payer Address Payer Phone Subscriber Number Group Number Insured Name Patient Relationship to Insured Coverage Start Date Coverage End Date [place]ARE [place] B [address] [facility] [place] [id number] Yahaira Herring Self - patient is the insured [facility] P[facility] [address] [place], [place] [id number] Yahaira Herring Self - patient is the insured Medical (General) History Medical History History ICD Code Lumbar radiculopathy Hypertension, unspecified type I10 Gastroesophageal reflux disease, unspeci fied whether esophagitis present K21.9 Spondylolisthesis, unspecified spinal re gion M43.10 Surgical History Surgery Date(Month/Year) hysterectomy gall bladder surgery appendectomy breast surgery Hospitalization History Reason Date(Month/Year) See Above
--- OUTSIDE RECORDS SUMMARY | 2024-10-09 13:43 | XMS_ITS | Data Portability ---
Author Organization [facility], [facility] Address [address] [place] [address] Care Team Providers Care Charging Plug Placer Name Role Phone ADEEL KEN Primary Care Provider URBANO JOYA Primary Care Provider [phone] Assessment Encounter Date Assessment Date Assessment LastModified [...] referral - [facility]AT [facility], [address] , [place], [address], 8 13:16:27 Procedures None recorded. Surgeries None recorded. Imaging XR, shoulder 2017 018 2 In-House Results, For Internal Use Only, Do Not Delete/merge, [id number] 13:08:25 MRI, lumbar spine, w/o contrast 2017 018 JEANNA In-House Results, For Internal Use Only, Do Not Delete/merge, [id number] 15:26:00 XR, lumbar spine 2017 018 [email or web address] In-House Results, For Internal Use Only, Do Not Delete/merge, [id number] 13:16:27 Medication Orders None recorded. Patient TargetsNo targets recorded. Patient Instructions Encounter Date Encounter Id Patient Instructions Last Modified By Organization Details Last Modified Time 09/06/2017 [id number] The patient will undergo an MRI of [...] be referred to pain management in [facility] with Dr. Cisneros. She will need an [...] inaccuracies. [email or web address] Not available 09/06/2017 11:30:07 09/19/2017 [id number] lumbar spinal stenosis: care instructions [email or web address] Not available 09/19/2017 14:22:20 The patient will be referred to Dr. Cisneros in [place] for evaluation and treatment options [email or web address] Not [...] inaccuracies. [email or web address] Not available 09/19/2017 14:21:55 11/24/2017 [id number] shoulder arthrit is: exercises [email or web address] Not available 11/24/2017 10:48:04 Reason for Referral Pain Management Referral for Lumbar spondylosis EVAL & TREAT Referring Physician: Nellie Templeton, [facility] [phone] Encounter Date: 09/06/2017 Results Created Date Observation Date Name Description Value Unit Range Abnormal Flag Note LastModifiedBy Organization Detail LastModifiedTime 09/08/19 18 09/07/2017 MRI, lumba r spine , w/o contr ast No observ ation record ed. [facility] [address] [facility] [address], [place], [address], 09/07/2017 16:40:42 Result Notes None recorded. Problems [...] 09/07/2017 MRI, lumbar spine, w/o contrast [facility] [address] [facility] [address], [place], [address], 09/07/2017 16:40:42 Procedure Notes None recorded. Medical Equipment None Reported. Allergies Allergen ID Allergen Name Allergen Category Reaction Reaction Severity Criticality Documentation Date Start Date Code Code System Note Provider Name and Address Organization Details Recorded Time 02133 codeine medicatio n nausea severe Not available [...] Updated DateTime 09/06/2017 154.94 cm 35.9 kg/m2 81655.55 g Antoinette Eldridge [facility] 09/06/2017 11:01:04 Date Recorded Body height Body mass index (BMI) Body weight Provider Name and Address Organization Details Last Updated DateTime 09/19/2017 154.94 cm 35.9 kg/m2 00593.55 g Antoinette Eldridge [facility] 09/19/2017 14:08:51 Date Recorded Body height Body mass index (BMI) Body weight Provider Name and Address Organization Details Last Updated DateTime 11/24/2017 154.94 cm 36.5 kg/m2 63233.33 g Crys Pascual [facility] 11/24/2017 09:36:39 Social History Question Answer Notes LastModified by [employer] ion Details LastModified Time Tobacco Smoking Status Former Smoker Antoinette Puentezac guadarrama [facility] 09/06/2017 11:01:21 Are You [...] Functional Status Question Answer Note LastModified by [employer] ion Details LastModified Time What is your [...] Response Coronary Artery Disease N Gout N Other N High Blood Pressure Y Thyroid Disease N Enlarged Prostate N Emphysema N Neurological N Depression N COPD N Heart Disease/Attack N Vascular Disease N Congestive Heart Failure N Gastric Reflux N Cancer N Liver Disease N Rheumatoid Arthritis N Fibromyalgia N Kidney Disease N Osteoarthritis Y Scoliosis N Lyme Disease N Multiple Sclerosis N Cholesterol N Stomach Ulcers N Diabetes N Bleeding Disorder N Asthma N Seizures N Hepatitis N Gynecological HistoryNo gynecological history recorded. Obstetrics History GPAL:G 0 P 0 0 0 0 Past Encounters Encounter ID Performer Location Encounter Start Date Encounter Closed Date Diagnosis/Indication Diagnosis SNOMED-CT Code Diagnosis ICD10 Code Diagnosis Note [id number] [facility] [address] [facility], [address] [address] 09/06/2017 10:17:30 09/06/2017 12:23:32 Low back pain 046204303 M54.5 Lumbar spondylosis 23152 0009 M47.896 [id number] Nellie Gray-P [facility] [address] [facility], [address] [address] 09/19/2017 13:59:27 09/19/2017 14:40:29 Spinal stenosis of lumbar region 19481437 M48.061 Lumbar spondylosis 29649 0009 M47.896 [id number] Luke Pedroza MD [facility] [address] [facility], [address] [address] 11/24/2017 09:23:16 11/24/2017 13:08:25 Shoulder joint pain 457623102 M25.511 Localized, primary osteoarthritis of the shoulder region 584349300 M19.011 Health Concerns Section Related Observation LastModified by Organization Detai ls LastModified Time None Recorded Concern Status LastModified by Organization Details LastModified Time None Recorded Advance Directives Directive None Recorded Payers Encounter Date Sequence Insurance Name Policy Number Policy [place] Covered Member ID [place] Member ID Guarantor Name 09/06/2017 2 [facility] [id number] Yahaira Abebein [id number] Yahaira Nima 09/06/2017 1 [place] COURT[place] Russ Nima [id number] Satinder Abebein 09/19/2017 2 [facility] [id number] Yahaira Abebein [id number] Yahaira Abebein 09/19/2017 1 [place] Russ N[place] [id number] Yahaira Abebein 11/24/2017 2 [facility] [id number] Yahaira Abebein [id number] Yahaira Nima 11/24/2017 1 [place] Nima [id number] Satinder Herring Notes Date Note Type Note [...] but for right shoulder tendinitis Nellie merida [address] [place] [address]., [facility] [address], [place], [address], [facility] 09/06/2017 11:30:17 09/19/2017 text/html [...] well as her reports to take to [facility] pain management physician. Overall her medical condition is unchanged from her previous office visit. Nellie merida [address] [facility] [address], [place], [address], [facility] 09/19/2017 14:22:03 11/24/2017 text/html [...] PM at nighttime. Luke Pedroza MD [address] [facility] [address], [place], [address], [facility] 11/24/2017 11:27:02 OBGyn Episode No OBEpisode recorded.
--- OUTSIDE RECORDS SUMMARY | 2024-10-09 13:43 | XMS_ITS | Data Portability ---
Author Organization [place] [facility] [place], Main Office Address [address] [place] [address] [place] [id number] Care Team Providers Care Software Qa Manager Name Role Phone ATIYA LIM Primary Care Provider JALEEL ORELLANA Orthopedist ALBERTA JOYA Pain Management ARNIE BUSTAMANTE OTHER Assessment No assessment recorded. Plan of Treatment Reminders Order Date Submit Date Provider Last Modified By Organization Details Last Modified Time Details Appointments None recorded. Lab CMP, serum or plasma 2021 [facility] ([facility]), [address], [place], [address], 09:24:20 HbA1c (hemoglob in A1c), blood 2021 [facility] ([facility]), [address], [place], [address], 09:24:23 iron + total iron-bind ing capacity (TIBC), serum 2021 [facility] ([facility]), [address], [place], [address], 09:24:21 ferritin, serum or plasma 2021 [facility] ([facility]), [address], [place], [address], 09:24:22 CBC w/ auto diff 2021 [facility] [address], [place], [address], 09:24:19 vitamin D, 25-hydrox y + 1,25-dihy droxy, serum 2021 [facility] [address] [place], [address], 14:36:53 lipid panel, serum 2021 [facility] ([facility]), [address] [place], [address], 14:36:53 CMP, serum or plasma 2021 [facility] [address] [place], [address], 14:36:52 CBC w/ auto diff 2021 [facility] ([facility] [address] [place], [address], 14:36:52 TSH + free T4, serum 2021 [facility] ([facility]), [address] [place], [address], 14:36:51 Referral None recorded. Procedures None recorded. Surgeries None recorded. Imaging DEXA, axial skeleton + vertebral fracture assessmen t 2021 [facility] ([facility]), [address], [place], [address], 18:24:36 [place], myocardia l perfusion scan, w/ stress - Please do Mariluz Scan only, NO TREADMILL 2020 [email or web address] 6 [facility] ([facility]), [address], [place], [address], 12:04:59 Medication Orders olmesarta n 40 mg tablet [email or web address] [facility], [facility], [place], [address], 13:34:24 citalopra m 20 mg tablet 2021 [facility], [facility], [place], [address], 13:12:11 meclizine 25 mg tablet 2021 [facility], [facility], [place], [address], 13:12:10 pantopraz ole 40 mg tablet,de layed release 2021 [facility], [facility], [place], [address], 13:12:13 oxybutyni n chloride ER 10 mg tablet,ex tended release 24 hr 2021 [id number], [address], [place], [address], 13:10:36 olmesarta n 40 mg tablet [email or web address] [facility], [facility], [place], [address], 19:28:07 citalopra m 20 mg tablet 2020 021 [facility], [place], [address], 14:27:53 amlodipin e 5 mg tablet [email or web address] [facility] [address] [facility], [place], [address], 13:03:53 olmesarta n 40 mg tablet [email or web address] [facility], [place], [address], 17:07:39 pantopraz ole 40 mg tablet,de layed release 2020 021 [facility], [place], [address], 12:28:29 citalopra m 20 mg tablet 2020 021 [facility], [place], [address], 12:28:27 amlodipin e 5 mg tablet 2020 021 [email or web address] [id number], [address], [address], 13:03:53 Patient TargetsNo targets recorded. Patient Instructions Encounter Date Encounter Id Patient Instructions Last Modified By Organization Details Last Modified Time 02/22/[id number] mammogram pending for 03/2022 [email or web address] Not available 02/22/2022 13:11:39 Reason for Referral None Reported. Results Created Date Observation Date Name Description Value Unit Range Abnormal Flag Note LastModifiedBy Organization Detail LastModifiedTime 11/30/1911/30/2021 TSH+F REE T4 TSH 1.670 uIU/m L 0.450- 4.500 Not Available [facility]) [address] [place], [address], 11/30/2021 14:36:51 11/30/19 22 11/30/2021 TSH+F REE T4 T4,free(dire ct) 0.96 NG/dL 0.82-1 .77 Not Available [facility]) [address] [place], [address], 11/30/2021 14:36:51 11/30/19 22 11/29/2021 CBC WITH DIFFE RENTI AL/PL ATELE T WBC 6.3 x10e3 /uL 3.4-10 .8 Not Available [facility]) [address] [place], [address], 11/30/2021 14:36:52 11/30/19 22 11/29/2021 CBC WITH DIFFE RENTI AL/PL ATELE T RBC 4.50 x10e6 /uL 3.77-5 .28 Not Available [facility]) [address] [place], [address], 11/30/2021 14:36:52 11/30/19 22 11/29/2021 CBC WITH DIFFE RENTI AL/PL ATELE T hemoglobin 9.6 g/dL 11.1-1 5.9 below low normal Not Available [facility]) [address] [place], [address], 11/30/2021 14:36:52 11/30/19 22 11/29/2021 CBC WITH DIFFE RENTI AL/PL ATELE T hematocrit 32.1 % 34.0-4 6.6 below low normal Not Available [facility]) [address] [place], [address], 11/30/2021 14:36:52 11/30/19 22 11/29/2021 CBC WITH DIFFE RENTI AL/PL ATELE T MCV 71 fL 79-97 below low normal Not Available [facility]) [address] [place], [address], 11/30/2021 14:36:52 11/30/19 22 11/29/2021 CBC WITH DIFFE RENTI AL/PL ATELE T MCH 21.3 pg 26.6-3 3.0 below low normal Not Available [facility]) [address] [place], [address], 11/30/2021 14:36:52 11/30/19 22 11/29/2021 CBC WITH DIFFE RENTI AL/PL ATELE T MCHC 29.9 g/dL 31.5-3 5.7 below low normal Not Available [facility]) [address] [place], [address], 11/30/2021 14:36:52 11/30/19 22 11/29/2021 CBC WITH DIFFE RENTI AL/PL ATELE T RDW 15.5 % 11.7-1 5.4 above high normal Not Available [facility]) [address] [place], [address], 11/30/2021 14:36:52 11/30/19 22 11/29/2021 CBC WITH DIFFE RENTI AL/PL ATELE T platelets 443 x10e3 /uL 150-45 0 Not Available [facility]) [address] [place], [address], 11/30/2021 14:36:52 11/30/19 22 11/29/2021 CBC WITH DIFFE RENTI AL/PL ATELE T neutrophils 60 % not estab. Not Available [facility]) [address] [place], [address], 11/30/2021 14:36:52 11/30/19 22 11/29/2021 CBC WITH DIFFE RENTI AL/PL ATELE T lymphs 27 % not estab. Not Available [facility]) [address] [place], [address], 11/30/2021 14:36:52 11/30/19 22 11/29/2021 CBC WITH DIFFE RENTI AL/PL ATELE T monocytes 10 % not estab. Not Available [facility]) [address] [facility], [place], [address], 11/30/2021 14:36:52 11/30/19 22 11/29/2021 CBC WITH DIFFE RENTI AL/PL ATELE T eos 2 % not estab. Not Available [facility]) [address] [facility], [place], [address], 11/30/2021 14:36:52 11/30/19 22 11/29/2021 CBC WITH DIFFE RENTI AL/PL ATELE T basos 1 % not estab. 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 0 Not Available [facility]) [address] [place], [address], 11/30/2021 14:36:52 11/30/19 22 11/29/2021 CBC WITH DIFFE RENTI AL/PL ATELE T lymphs (absolute) 1.7 x10e3 /uL 0.7-3. 1 Not Available [facility]) [address] [facility], [place], [address], 11/30/2021 14:36:52 11/30/19 22 11/29/2021 CBC WITH DIFFE RENTI AL/PL ATELE T monocytes(ab solute) 0.6 x10e3 /uL 0.1-0. 9 Not Available [facility]) [address] [facility], [place], [address], 11/30/2021 14:36:52 11/30/19 22 11/29/2021 CBC WITH DIFFE RENTI AL/PL ATELE T eos (absolute) 0.2 x10e3 /uL 0.0-0. 4 Not Available [facility]) [address] [facility], [place], [address], 11/30/2021 14:36:52 11/30/19 22 11/29/2021 CBC WITH DIFFE RENTI AL/PL ATELE T baso (absolute) 0.1 x10e3 /uL 0.0-0. 2 Not Available [facility]) [address] [facility], [place], [address], 11/30/2021 14:36:52 11/30/19 22 11/29/2021 CBC WITH DIFFE RENTI AL/PL ATELE T immature granulocytes 0 % not estab. Not Available [facility]) [address] [place], [address], 11/30/2021 14:36:52 11/30/19 22 11/29/2021 CBC WITH DIFFE RENTI AL/PL ATELE T immature grans (abs) 0.0 x10e3 /uL 0.0-0. 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 METAB OLIC PANEL (14) glucose 131 mg/dL 65-99 above high normal Not Available [facility]) [address] [facility], [place], [address], 11/30/2021 14:36:52 11/30/19 22 11/29/2021 COMP. METAB OLIC PANEL (14) BUN 14 mg/dL 8-27 Not Available [facility] [address] [place], [address], 11/30/2021 14:36:52 11/30/19 22 11/29/2021 COMP. METAB OLIC PANEL (14) creatinine 0.99 mg/dL 0.57-1 .00 Not Available [facility]) [address] [facility], [place], [address], 11/30/2021 14:36:52 11/30/19 22 11/29/2021 COMP. METAB OLIC PANEL (14) eGFR 59 mL/mi n/1.7 3 >59 below low normal Not Available [facility]) [address] [place], [address], 11/30/2021 14:36:52 11/30/19 22 11/29/2021 COMP. METAB OLIC PANEL (14) BUN/creatini ne ratio 14 12-28 Not Available [facility] [address] [place], [address], 11/30/2021 14:36:52 11/30/19 22 11/29/2021 COMP. METAB OLIC PANEL (14) sodium 139 mmol/ L 134-14 4 Not Available [facility]) [address] [place], [address], 11/30/2021 14:36:52 11/30/19 22 11/29/2021 COMP. METAB OLIC PANEL (14) potassium 5.0 mmol/ L 3.5-5. 2 Not Available [facility]) [address] [place], [address], 11/30/2021 14:36:52 11/30/19 22 11/29/2021 COMP. METAB OLIC PANEL (14) chloride 102 mmol/ L 96-106 Not Available [facility]) [address] [place], [address], 11/30/2021 14:36:52 11/30/19 22 11/29/2021 COMP. METAB OLIC PANEL (14) carbon dioxide, total 23 mmol/ L 20-29 Not Available [facility]) [address] [place], [address], 11/30/2021 14:36:52 11/30/19 22 11/29/2021 COMP. METAB OLIC PANEL (14) calcium 9.2 mg/dL 8.7-10 .3 Not Available [facility]) [address] [place], [address], 11/30/2021 14:36:52 11/30/19 22 11/29/2021 COMP. METAB OLIC PANEL (14) protein, total 6.9 g/dL 6.0-8. 5 Not Available [facility]) [address] [place], [address], 11/30/2021 14:36:52 11/30/19 22 11/29/2021 COMP. METAB OLIC PANEL (14) albumin 4.3 g/dL 3.7-4. 7 Not Available [facility]) [address] [facility], [place], [address], 11/30/2021 14:36:52 11/30/19 22 11/29/2021 COMP. METAB OLIC PANEL (14) globulin, total 2.6 g/dL 1.5-4. 5 Not Available [facility]) [address] [facility], [place], [address], 11/30/2021 14:36:52 11/30/19 22 11/29/2021 COMP. METAB OLIC PANEL (14) A/G ratio 1.7 1.2-2. 2 Not Available [facility]) [address] [facility], [place], [address], 11/30/2021 14:36:52 11/30/19 22 11/29/2021 COMP. METAB OLIC PANEL (14) bilirubin, total 0.2 mg/dL 0.0-1. 2 Not Available [facility]) [address] [facility], [place], [address], 11/30/2021 14:36:52 11/30/19 22 11/29/2021 COMP. METAB OLIC PANEL (14) alkaline phosphatase 76 IU/L 44-121 Not Available [facility] [address] [facility], [place], [address], 11/30/2021 14:36:52 11/30/19 22 11/29/2021 COMP. METAB OLIC PANEL (14) AST (SGOT) 13 IU/L 0-40 Not Available [facility]) [address] [facility], [place], [address], 11/30/2021 14:36:52 11/30/19 22 11/29/2021 COMP. METAB OLIC PANEL (14) ALT (SGPT) 15 IU/L 0-32 Not Available [facility]) [address] [place], [address], 11/30/2021 14:36:52 11/30/19 22 11/29/2021 LIPID PANEL cholesterol, total 181 mg/dL 100-19 9 Not Available [facility] [address] [place], [address], 11/30/2021 14:36:53 11/30/19 22 11/29/2021 LIPID PANEL triglyceride s 194 mg/dL 0-149 above high normal Not Available [facility] [address] [place], [address], 11/30/2021 14:36:53 11/30/19 22 11/29/2021 LIPID PANEL HDL cholesterol 48 mg/dL >39 Not Available [facility] [address] [place], [address], 11/30/2021 14:36:53 11/30/19 22 11/29/2021 LIPID PANEL VLDL cholesterol jamison 33 mg/dL 5-40 Not Available [facility] [address] [place], [address], 11/30/2021 14:36:53 11/30/19 22 11/29/2021 LIPID PANEL LDL chol calc ([facility]) 100 mg/dL 0-99 above high normal Not Available [facility] [address] [place], [address], 11/30/2021 14:36:53 11/30/19 22 11/29/2021 LIPID PANEL 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 Monica rich [place]: The [facility] Acade [facility] Press . 2. Fransisco whitley MF, Jhon hameed [place], Anup off-F errar i YOUNGBLOOD, et al. Evalu ation , treat ment, and preve ntion of vitam in D defic iency : an Endoc rine Socie ty clini jamison pract ice guide line. JCEM. 2010; 96(7) :1911 -30. Not Available [facility]) [address] [facility], [place], [address], 11/30/2021 14:36:53 02/23/20 22 02/23/2022 CBC WITH PLATE LET AND DIFFE RENTI AL WBC 7.9 K/uL 3.8-11 .5 Not Available [facility] [address] [facility] [address], [place], [address], 02/23/2022 09:24:18 02/23/20 22 02/23/2022 CBC WITH PLATE LET AND DIFFE RENTI AL red blood cell count (RBC) 4.67 M/mm3 3.60-5 .30 Not Available [facility]) [address] [place] [address] [address], [place], [address], 02/23/2022 09:24:18 02/23/20 22 02/23/2022 CBC WITH PLATE LET AND DIFFE RENTI AL hemoglobin (HGB) 13.1 gm/dL 11.5-1 5.5 Not Available [facility] ([facility]) [address] [place] [address] [address], [place], [address], 02/23/2022 09:24:18 02/23/20 22 02/23/2022 CBC WITH PLATE LET AND DIFFE RENTI AL hematocrit (HCT) 39.1 % 35.2-4 6.4 Not Available [facility] ([facility]) [address] [place] [address] [address], [place], [address], 02/23/2022 09:24:18 02/23/20 22 02/23/2022 CBC WITH PLATE LET AND DIFFE RENTI AL MCV 83.7 fL 79.0-9 9.0 Not Available [facility] ([facility]) [address] [place] [address] [address], [place], [address], 02/23/2022 09:24:18 02/23/20 22 02/23/2022 CBC WITH PLATE LET AND DIFFE RENTI AL MCH 28.1 pg 26.9-3 5.0 Not Available [facility]) [address] [place] [address] [address], [place], [address], 02/23/2022 09:24:18 02/23/20 22 02/23/2022 CBC WITH PLATE LET AND DIFFE RENTI AL MCHC 33.5 g/dL 30.4-3 4.8 Not Available [facility] ([facility]) [facility] [address], [place], [address], 02/23/2022 09:24:18 02/23/20 22 02/23/2022 CBC WITH PLATE LET AND DIFFE RENTI AL RDW NM fL 38.6-5 3.8 Unabl e to repor t RDW due to dimor phic red cell popul ation Not Available [facility] ([facility]) [facility] [address], [place], [address], 02/23/2022 09:24:18 02/23/20 22 02/23/2022 CBC WITH PLATE LET AND DIFFE RENTI AL platelet count 332 K/cum m 137-39 7 Not Available [facility] ([facility]) [address] [place] [address] [address], [place], [address], 02/23/2022 09:24:18 02/23/20 22 02/23/2022 MANUA L DIFFE RENTI AL REVIE W/COU NT absolute immature granulocyte manual 0.00 K/uL 0.00-0 .03 Not Available [facility] ([facility]) [facility] [address], [place], [address], 02/23/2022 09:24:20 02/23/20 22 02/23/2022 MANUA L DIFFE RENTI AL REVIE W/COU NT absolute basophil count manual 0.1 K/uL 0.0-0. 1 Not Available [facility] ([facility]) [address] [place] [address] [address], [place], [address], 02/23/2022 09:24:20 02/23/20 22 02/23/2022 MANUA L DIFFE RENTI AL REVIE W/COU NT absolute eosinophil count manual 0.2 K/uL 0.0-0. 6 Not Available [facility] ([facility]) [address] [facility] [address], [place], [address], 02/23/2022 09:24:20 02/23/20 22 02/23/2022 MANUA L DIFFE RENTI AL REVIE W/COU NT absolute monocyte count manual 0.8 K/uL 0.3-1. 0 Not Available [facility]) [address] [place] [address] [address], [place], [address], 02/23/2022 09:24:20 02/23/20 22 02/23/2022 MANUA L DIFFE RENTI AL REVIE W/COU NT absolute lymphocyte count manual 3.0 K/uL 0.9-3. 6 Not Available [facility]) [facility] [address], [place], [address], 02/23/2022 09:24:20 02/23/20 22 02/23/2022 MANUA L DIFFE RENTI AL REVIE W/COU NT absolute neutrophil count manual 3.9 K/uL 2.0-8. 2 Not Available [facility]) [address] [place] [address] [address], [place], [address], 02/23/2022 09:24:20 02/23/20 22 02/23/2022 MANUA L DIFFE RENTI AL REVIE W/COU NT microcytosis SLIGHT Not Available [facility]) [address] [place] [address] Dr [address], [place], [address], 02/23/2022 09:24:20 02/23/20 22 02/23/2022 MANUA L DIFFE RENTI AL REVIE W/COU NT anisocytosis MODERA TE Not Available [facility] ([facility]) [address] [place] [address] [address], [place], [address], 02/23/2022 09:24:20 02/23/20 22 02/23/2022 MANUA L DIFFE RENTI AL REVIE W/COU NT poikilocytos is SLIGHT Not Available [facility] [address] [place] [address] [address], [place], [address], 02/23/2022 09:24:20 02/23/20 22 02/23/2022 MANUA L DIFFE RENTI AL REVIE W/COU NT fragmented cells FEW Not Available [facility] ([facility]) [address] [place] [address] Dr [address], [place], [address], 02/23/2022 09:24:20 02/23/20 22 02/23/2022 MANUA L DIFFE RENTI AL REVIE W/COU NT ovalocytes FEW Not Available [facility] [address] [place] [address] Dr [address], [place], [address], 02/23/2022 09:24:20 02/23/20 22 02/23/2022 MANUA L DIFFE RENTI AL REVIE W/COU NT platelet slide review NORMAL Plate let clump s noted . True plate let count may be highe r than repor esvin. Not Available [facility] [address] [place] [address] Dr [address], [place], [address], 02/23/2022 09:24:20 02/23/20 22 02/23/2022 MANUA L DIFFE RENTI AL REVIE W/COU NT neutrophils- manual 49 % 41-77 Not Available [facility] [address] [place] [address] Dr [address], [place], [address], 02/23/2022 09:24:20 02/23/20 22 02/23/2022 MANUA L DIFFE RENTI AL REVIE W/COU NT lymphocytes manual 30 % 14-48 Not Available [facility] ([facility]) [address] [place] [address] Dr [address], [place], [address], 02/23/2022 09:24:20 02/23/20 22 02/23/2022 MANUA L DIFFE RENTI AL REVIE W/COU NT monocytes manual 10 % 4-13 Not Available [facility] ([facility]) [address] [place] [address] Dr [address], [place], [address], 02/23/2022 09:24:20 02/23/20 22 02/23/2022 MANUA L DIFFE RENTI AL REVIE W/COU NT eosinophils manual 2 % 0-8 Not Available [facility] ([facility]) [address] [place] [address] Dr [address], [place], [address], 02/23/2022 09:24:20 02/23/20 22 02/23/2022 MANUA L DIFFE RENTI AL REVIE W/COU NT basophils manual 1 % 0-1 Not Available [facility] ([facility]) [address] [place] [address] Dr [address], [place], [address], 02/23/2022 09:24:20 02/23/20 22 02/23/2022 MANUA L DIFFE RENTI AL REVIE W/COU NT atypical lymphocytes 8 % 0-12 Not Available [facility] ([facility]) [address] [place] [address] Dr [address], [place], [address], 02/23/2022 09:24:20 02/23/20 22 02/23/2022 COMPR EHENS DARYN METAB OLIC PANEL (CMP) sodium 141 mEq/L 135-14 5 Not Available [facility]) [address] [place] [address] Dr [address], [place], [address], 02/23/2022 09:24:20 02/23/20 22 02/23/2022 COMPR EHENS DARYN METAB OLIC PANEL (CMP) potassium 4.3 mEq/L 3.5-5. 3 Not Available [facility]) [address] [place] [address] Dr [address], [place], [address], 02/23/2022 09:24:20 02/23/20 22 02/23/2022 COMPR EHENS DARYN METAB OLIC PANEL (CMP) chloride 104 mEq/L 97-108 Not Available [facility] [address] [place] [address] Dr [address], [place], [address], 02/23/2022 09:24:20 02/23/20 22 02/23/2022 COMPR EHENS DARYN METAB OLIC PANEL (CMP) CO2 25 mEq/L 22-32 Not Available [facility] ([facility]) [address] [place] [address] Dr Carter, [place], [address], 02/23/2022 09:24:20 02/23/20 22 02/23/2022 COMPR EHENS DARYN METAB OLIC PANEL (CMP) glucose 94 mg/dL 65-99 Not Available [facility] ([facility]) [address] [place] [address] Dr Carter, [place], [address], 02/23/2022 09:24:20 02/23/20 22 02/23/2022 COMPR EHENS DARYN METAB OLIC PANEL (CMP) BUN 19 mg/dL 8-23 Not Available [facility] ([facility]) [address] [place] [address] Dr Carter, [place], [address], 02/23/2022 09:24:20 02/23/20 22 02/23/2022 COMPR EHENS DARYN METAB OLIC PANEL (CMP) creatinine 0.84 mg/dL 0.50-1 .00 Not Available [facility] ([facility]) [address] [place] [address] Dr Carter, [place], [address], 02/23/2022 09:24:20 02/23/20 22 02/23/2022 COMPR EHENS DARYN METAB OLIC PANEL (CMP) calcium 9.5 mg/dL 8.6-10 .4 Not Available [facility] ([facility]) [address] [place] [address] Dr Carter, [place], [address], 02/23/2022 09:24:20 02/23/20 22 02/23/2022 COMPR EHENS DARYN METAB OLIC PANEL (CMP) protein 6.8 g/dL 6.0-8. 3 Not Available [facility] ([facility]) [address] [place] [address] Dr Carter, [place], [address], 02/23/2022 09:24:20 02/23/20 22 02/23/2022 COMPR EHENS DARYN METAB OLIC PANEL (CMP) albumin 4.2 g/dL 3.5-5. 3 Not Available [facility] ([facility]) [address] [place] [address] Dr Carter, [place], [address], 02/23/2022 09:24:20 02/23/20 22 02/23/2022 COMPR EHENS DARYN METAB OLIC PANEL (CMP) alkaline phosphatase 64 IU/L 35-121 Not Available [facility] ([facility]) [address] [place] [address] Dr Carter, [place], [address], 02/23/2022 09:24:20 02/23/20 22 02/23/2022 COMPR EHENS DARYN METAB OLIC PANEL (CMP) ALT (SGPT) 21 IU/L <5-47 Not Available [facility] ([facility]) [address] [place] [address] Dr Carter, [place], [address], 02/23/2022 09:24:20 02/23/20 22 02/23/2022 COMPR EHENS DARYN METAB OLIC PANEL (CMP) AST (SGOT) 15 IU/L <5-40 Not Available [facility] ([facility]) [address] [place] [address] Dr Carter, [place], [address], 02/23/2022 09:24:20 02/23/20 22 02/23/2022 COMPR EHENS DARYN METAB OLIC PANEL (CMP) bilirubin, total 0.2 mg/dL <0.2-1 .2 Not Available [facility] ([facility]) [address] [place] [address] Dr Carter, [place], [address], 02/23/2022 09:24:20 02/23/20 22 02/23/2022 COMPR EHENS DARYN METAB OLIC PANEL (CMP) A/G ratio 1.6 mg/dL 1.1-2. 5 Not Available [facility] [address] [place] [address] Dr Carter, [place], [address], 02/23/2022 09:24:20 02/23/20 22 02/23/2022 COMPR EHENS DARYN METAB OLIC PANEL (CMP) estimated GFR (black) 77 mL/mi n/1.7 3m2 >59 Not Available [facility] [address] [place] [address] Dr Carter, [place], [address], 02/23/2022 09:24:20 02/23/20 22 02/23/2022 COMPR EHENS [...] muscl e mass or diet. Not Available [facility] ([facility]) [address] [place] [address] Dr Carter, [place], [address], 02/23/2022 09:24:20 02/23/20 22 02/23/2022 PERCE NT SATUR ATION WITH IRON AND IBC iron 80 ug/dL 37-145 Not Available [facility] ([facility]) [address] [place] [address] Dr Carter, [place], [address], 02/23/2022 09:24:21 02/23/20 22 02/23/2022 PERCE NT SATUR ATION WITH IRON AND IBC iron binding cap 386 ug/dL 250-45 0 Not Available [facility] ([facility]) [address] [place] [address] Dr Carter, [place], [address], 02/23/2022 09:24:21 02/23/20 22 02/23/2022 PERCE NT SATUR ATION WITH IRON AND IBC percent saturation 21 % 15-50 Not Available [facility] ([facility]) [address] [place] [address] Dr Carter, [place], [address], 02/23/2022 09:24:21 02/23/20 22 02/23/2022 BELEM TIN ferritin 36.5 NG/mL 13.0-3 01.0 Not Available [facility] ([facility]) [address] [place] [address] Dr Carter, [place], [address], 02/23/2022 09:24:22 02/23/20 22 02/23/2022 HEMOG LOBIN [...] LLC) [address], [place], [address], 02/23/2022 09:24:23 02/23/20 22 02/23/2022 HEMOG LOBIN A1C estimated average glucose 123 mg/dL Murray ge Gluco se is calcu lated using the equat ion AG = (28.7 x HgbA1 c) - 46.7 based on the guide lines estab lisfredy d by the ADA. Not Available [facility] ([facility]) [address], [place], [address], 02/23/2022 09:24:23 10/10/19 21 09/21/2020 CT, angio [...] No observ ation record ed. [email or web address] Formerly [facility] [address] [place], [place] [address]vd [address], [place], [address], 07/09/2021 10:53:42 04/20/20 22 04/20/2022 DEXA, axial skele ton + verte bral fract ure asses sment No observ ation record ed. [email or web address] [facility] (Administrati on) [address], [place], [address], 04/25/2022 14:32:46 Result Notes None recorded. Problems Name Problem SNOMED Code Status Onset Date Resolution Date Notes Provider Name and Address Organization Details Recorded Time Gastroesophag eal reflux disease without esophagitis 652470372 Active 2018 Not Available [facility] 14:09:48 Anxiety 05705879 Active 2018 Not Available [facility] 14:09:48 Diarrhea 52338651 Active 2018 Not Available [facility] 14:09:48 Hemorrhoids 49956424 Active 2018 Not Available [facility] 14:09:48 Hyperlipidemi a 47651947 Active 2018 Not Available [facility] 14:09:48 Hypertensive disorder 00114158 Active 2018 Not Available [facility] 14:09:48 Prolapsed lumbar intervertebra l disc 003113480 Active 2018 Not Available [facility] 14:09:48 Prediabetes 558892232 Active 2018 Not Available [facility] 14:09:48 Problem Notes None recorded. Procedures Surgical History Date Name Laterality Status Provider Name and Address Organization Details Recorded Time 01/14/20 21 Most Recent Mammogram completed FEDERICO TORRES [place] [facility] [place] 03/08/2021 13:55:22 01/16/20 19 mammography completed Julia Harding [place] [facility] [place] 04/03/2019 13:18:13 Hysterectomy completed Atiya Dior MD [address], [place], [address], [facility] [place] 04/03/2019 10:04:22 Appendectomy completed Atiya Dior MD [address], [place], [address], [facility] [place] 04/03/2019 10:04:33 Tubal Ligation completed Atiya Dior MD [address], [place], [address], [facility] [place] 04/03/2019 10:04:42 Tonsillectomy completed Atiya Dior MD [address], [place], [address], [facility] [place] 04/03/2019 10:04:53 Cholecystectomy completed Atiya Dior MD [address], [place], [address], [facility], [place] 04/03/2019 10:05:00 Imaging Results Imaging Date Name Status LastModified by Organization Details LastModified Time 09/21/2020 CT, angiogram, chest, w/wo contrast completed [facility] Information not available 10/09/2020 08:28:47 09/24/2020 electrocardiogram completed [facility] Informa tion not available 10/09/2020 08:28:47 07/08/2021 MRI, lumbar spine, w/wo contrast completed [email or web address] Information not available 07/09/2021 11:06:23 07/07/2021 MRI, lumbar spine, w/o contrast completed [email or web address] Formerly [facility] [address], [place], [address], 07/09/2021 10:53:42 04/20/2022 DEXA, axial skeleton + [facility] [place] [address] (Administration ) [address] [place], [address], 04/25/2022 14:32:46 Procedure Notes None recorded. Medical Equipment None Reported. Allergies Allergen ID Allergen Name Allergen Category Reaction Reaction Severity Criticality Documentation Date Start Date Code Code System Note Provider Name and Address Organization Details Recorded Time 179 codeine medicatio n Not available Not available Not available 04/03/2019 2670 RxNorm Atiya quarles MD [address] [facility], [place], [address], [facility], [place] 9 10:01:14 180 acetamino phen / oxycodone medicatio n Not available Not available Not available 04/03/2019 43961 3 RxNorm Atiya quarles MD [address], [place], [address], [facility], [place] 9 10:01:20 Medications Name Sig Start Date [...] 1 154.94 cm 97.8 [degF] 40.8 kg/m2 06863.9 5 g 94 /min 16 /min 95 % 95 % 143 mm[Hg] 75 mm[Hg] FEDERICO TORRES [facility], [place] 1 13:51:43 Date Recorded Body height Oxygen saturation Oxygen saturation in Arterial blood by Pulse oximetry Respiratory rate Heart rate Systolic blood pressure Diastolic blood pressure Provider Name and Address Organization Details Last Updated DateTime 2 154.94 cm 96 % 96 % 18 /min 103 /min 157 mm[Hg] 81 mm[Hg] FEDERICO TORRES [facility], [place] 2 13:21:21 Date Recorded Body temperature Body mass index (BMI) Body weight Provider Name and Address Organization Details Last Updated DateTime 08/23/2021 97.4 [degF] 40.3 kg/m2 02371.61 g SHARONA HIGGINS NP-C [address] [facility] [address] [place] [address], [address], [facility], [place] 08/23/2021 12:58:22 Date Recorded Body height Body temperature Body mass index (BMI) Body weight Respiratory rate Oxygen saturation Oxygen saturation in Arterial blood by Pulse oximetry Heart rate Systolic blood pressure Diastolic blood pressure Provider Name and Address Organization Details Last Updated DateTime 2 154.94 cm 97.7 [degF] 40.2 kg/m2 18851.1 g 16 /min 96 % 96 % 93 /min 136 mm[Hg] 85 mm[Hg] CARMELLA STEINBERG [facility], [place] 2 12:41:15 Date Recorded Body height Heart rate Respiratory rate Oxygen saturation Oxygen saturation in Arterial blood by Pulse oximetry Body temperature Body mass index (BMI) Body weight Systolic blood pressure Diastolic blood pressure Provider Name and Address Organization Details Last Updated DateTime 1 154.94 cm 90 /min 16 /min 96 % 96 % 97.5 [degF] 39 kg/m2 82506.1 8 g 149 mm[Hg] 78 mm[Hg] Mary Bhagat [facility], [place] 1 12:33:24 Date Recorded Body height Body temperature Heart rate Respiratory rate Oxygen saturation Oxygen saturation in Arterial blood by Pulse oximetry Body mass index (BMI) Body weight Systolic blood pressure Diastolic blood pressure Provider Name and Address Organization Details Last Updated DateTime 1 154.94 cm 98 [degF] 101 /min 18 /min 98 % 98 % 38.1 kg/m2 16275.2 5 g 125 mm[Hg] 77 mm[Hg] Mary Bhagat [facility], [place] 1 11:58:26 Social History Question Answer Notes LastModified by Organizat ion Details LastModified Time Tobacco Smoking Status Former Smoker [facility]iya Dior MD [address] [facility] [address] [place] [address], [address], [place] 04/03/2019 10:06:33 Do You Have An Advance Directive? Yes [email or web address] Information not available 04/03/2019 What Is Your Level Of Caffeine Consumption? Occasional Information not available 04/03/2019 What Type Of Diet Are You Following? REGULAR Information not available 03/08/2021 What Is The Highest Grade Or Level Of School You Have Completed Or The Highest Degree You Have Received? [id number] Information not available 03/08/2021 When Did You Quit Smoking? 16+yearssincel [email or web address] Information not available 03/08/2021 Live Alone Or With Others? Alone [email or web address] Information not available 04/03/2019 What Was The Date Of Your Most Recent Tobacco Screening? 03/08/2021 Information not available 03/08/2021 How Many Children Do You Have? 2 [email or web address] Information not available 04/03/2019 What Is Your Relationship Status? Information not available 03/08/2021 At What Age Did You Start Smoking Tobacco? 16 Information not available 03/08/2021 General Stress Level Low [email or web address] Information not available 04/03/2019 How Many Years Have You Smoked Tobacco? 36 Information not available 03/08/2021 Sex: Unknown Functional Status Question Answer Note LastModified by Organizat ion Details LastModified Time Do you use any illicit or recreational drugs? No Information not available 03/08/2021 What is your level of alcohol consumption? None [email or web address] Information not available 04/03/2019 Are you currently employed? No Information not available 03/08/2021 Are you able to walk? YESWOREST Information not available 03/08/2021 Are you able to care for yourself? Yes Information not available 04/03/2019 What is your occupation? retired [email or web address] Information not available 04/03/2019 What is your [...] split virus, quadrivalent, preservative 9 completed [place] 10/09/2020 12:31:23 zoster recombinant 0 [place] 10/09/2020 12:31:23 Influenza, split virus, quadrivalent, preservative 0 flako guadarrama [place] 10/09/2020 12:31:23 zoster recombinant 1 [place] 10/09/2020 12:31:23 COVID-19, mRNA, LNP-S, PF, 30 mcg/0.3 mL dose 1 completed HAYDEN Morales - [facility], [place] 03/22/2021 08:30:16 Past Encounters Encounter ID Performer Location Encounter Start Date Encounter Closed Date Diagnosis/Indication Diagnosis SNOMED-CT Code Diagnosis ICD10 Code Diagnosis Note [id number] Atiya Dior MD Main Office [address] [place] [id number] 04/03/2019 13:02:56 04/03/2019 13:53:59 Gastroesophageal reflux disease without esophagitis 214379938 K21.9 pt having reflux every day and using tums advised pt to try pepcid - will give script avoid dietary triggers weight loss advised Prolapsed lumbar intervertebral disc 517968467 M51.[address] Joya - getting shots every 90 days. debating surgery. Screening for malignant neoplasm of colon 615292013 Z12.11 pt has always done colonoscop y that was normal. she lives alone and getting to and from a colonoscop y would be difficult. will order cologuard. Anxiety 39776369 F41.9 stable on current meds. will continue current care. Hypertensive disorder 38 292690 I10 BP goal < 150/90 continue current care low salt diet and daily exercise recommende d Monitor BP at home and Return to care if elevated above 150/90 >50% of the time. Hyperlipidemia 30563393 E78.5 stable on current meds. will continue current care - weight loss advised and check labs. Prediabetes 925478560 R7 3.03 last A1c was 6.3 advised lifestyle changes [id number] Sukhwinder Vazquez MD Main Office [address] [place] [id number] 07/04/2019 13:53:17 07/04/2019 15:09:10 Postural dizziness 076114294 R42 -suspect orthostati c in nature as only occurs when standing -BP normal however HR goes from 92 to 110 upon standing and positive dizziness -no dizziness/ nystagmus with head thrust -check BMP, hgb -stop HCTZ and continue olmsartan only -orthostat ic dizziness education given Tachycardia 0442915 R00. 0 suspect all orthostati c related, however resting still in 90's is normal for her. -standing >110 -EKG shows normal rhythm Low back pain 487652683 M54.5 Needs to have back surgery and requires clearance. -no exertional or non exertional chest pain -exercises 3 times week -Intermedi ate risk surgery with 4 mets , no clinical risk factors -BMP, cbc normal can proceed to surgery without further testing - medically optimized for surgery. -EKG shows NSR at rest Pre-surger y evaluation 203452195 Z01.818 pt needs back surgery clearance. labs and EKG performed and were WNL. medically optimized for surgery. [id number] Atiya Dior MD Main Office [facility] [address] [place] [id number] 07/25/2019 13:21:07 07/25/2019 13:47:25 Hypertensive disorder 42055040 I10 BP goal < 150/90 will increase olmesartan to 40mg daily to help with BP low salt diet and daily exercise recommende d Monitor BP at home and Return to care if elevated above 150/90 >50% of the time. [id number] BARBARA MACIAS Main Office [address] [place] [id number] 04/21/2020 11:49:49 04/21/2020 12:38:15 Anxiety 09727245 F41.9 Patient states that covid and social distancing from friends/fa elba has been rough for her lately. Patient states she is relying on family more and doing well on her current medication . Patient encouraged to continue to stay safe while interactin g with her neighbors and continue to stay in touch with family members. Refill sent to [facility]. Gastroesop hageal reflux disease without esophagitis 632173433 K21.9 Patient advised to avoid trigger foods, such as chocolate and pasta, and stay hydrated. Patient will start protonix today and monitor symptoms. Diarrhea 84605428 R19.7 Discussed the benefits of a daily probiotic. Patient will start taking this week. Encouraged patient to stay hydrated and maintain healthy diet while avoiding any trigger foods such as diary. [id number] Atiya Dior MD Main Office [facility] [address] [place] [id number] 10/09/2020 11:56:00 10/09/2020 12:56:01 Spinal stenosis of lumbar region 14983917 M48.061 notes, labs and imaging from hospital admission reviewed. S/p surgery and doing well post op Keep up f/u with surgeon natasha removed Hypertensive disorder 38 901823 I10 BP goal < 150/90 continue olmesartan 40mg daily will add amlodipine 2.5 - 5mg daily - SE of medication discussed low salt diet and daily exercise recommende d Monitor BP at home and Return to care if elevated above 150/90 >50% of the time. Sinus tachycardia 533978 01 R00.0 EKG from hospital admission and labs reviewed suspect multifacto rial - pain, anxiety will check stress test but doubt cardiac as cause. [id number] Atiya Dior MD Main Office [address] [place] [id number] 11/06/2020 11:47:01 11/06/2020 12:32:19 Hypertensive disorder 48088153 I10 BP goal < 150/90 continue olmesartan 40mg daily will add amlodipine 2.5 - 5mg daily - SE of medication discussed low salt diet and daily exercise recommende d Monitor BP at home and Return to care if elevated above 150/90 >50% of the time. Anxiety 57197795 F41.9 stable on current meds. will continue current care. Gastroesop hageal reflux disease without esophagitis 150474171 K21.9 doing well on PPI avoid dietary triggers weight loss advised [id number] KARINA HIGUERA Main Office [address] [place] [id number] 03/08/2021 13:29:23 03/08/2021 14:30:48 Hypertensive disorder 21403434 I10 BP log reviewed - will stop amlodipine - has only been taking 1/2 of her 5 mg amlodipine pill daily BP goal < 150/90 low salt diet and daily exercise recommende d Monitor BP at home and Return to care if elevated above 150/90 >50% of the time. Anxiety 67823757 F41.9 doing well on celexa, will renew [id number] Atiya Dior MD Main Office [address] [place] [id number] 08/23/2021 12:28:27 08/23/2021 13:25:06 Seasonal allergic rhinitis 887509374 J30.2 medication - advised flonase and anti-hista mine, OTC cough syrup or honey supportive care otherwises uspect that dizziness may be coming from congestion related to allergies Hypertensive disorder 38 022488 I10 BP goal < 140/90 Currently at goal and doing well on meds with no SE. Will continue current care. Low salt diet and daily exercise encouraged Advised to monitor BP at home and to RTC if >140/90 > 50% of the time Hyperlipidemia 21722517 E78.5 will update fasting labs Fatigue 21692293 R53.83 will check thyroid labs Vitamin D deficiency 347 67383 E55.9 currently supplement ing vitamin d3 - will update labs Overactive urinary bladder 249777000 N32.81 pt reports trouble sleeping related to getting up to use the bathroom every 2 hours at night - will start oxybutynin ER 10 mg tablet [id number] Atiya Dior MD Main Office [address] [facility] [address] [place] [id number] 02/22/2022 12:32:36 02/22/2022 13:23:59 Anxiety 42828148 F41.9 doing well on celexa, will renew Hypertensive disorder 38 165198 I10 BP goal < 140/90 Currently at goal and doing well on meds with no SE. Will continue current care. Low salt diet and daily exercise encouraged Advised to monitor BP at home and to RTC if >140/90 > 50% of the time Gastroesop hageal reflux disease without esophagitis 308781487 K21.9 stable on PPI. avoid dietary triggers Iron defic iency anemia 85105776 D50.9 last H/H was 9.6she is taking iron dailywill recheck labsmay need colonoscop y - denies bleeding Impaired g lucose tolerance 3011027 R73.02 BS was 131 on last set of labswill check A1c Vertigo 665853145 R42 prn use of meclizinew arning signs reviewed - ED if they present Menopausal and postmenopausal disorders 565120249 N95.9 Health Concerns Section Related Observation LastModified by Organization Detai ls LastModified Time None Recorded Concern Status LastModified by Organization Details LastModified Time None Recorded Advance Directives Directive Y: Payers Encounter Date Sequence Insurance Name Policy Number Policy [place] Covered Member ID [place] Member ID Guarantor Name 10/09/2020 1 [place] COURT[place] Russ Nima [id number] Yahaira Nima 10/09/2020 3 [place] [employer] (MEDICARE SUPPLEMENT) [id number] Yahaira Nima [id number] [place]a Nima 11/06/2020 1 [place] COURT[place] Russ Nima [id number] [place] 11/06/2020 3 [place] [employer] [employer] [place]MEDIC[place]LE[place]) [id number] [place] N[place] [id number] Yahaira Nima 03/08/2021 1 [place] COURT[place] Syed J Nima [id number] [place] Nima 03/08/2021 3 [place] [employer] [place]MED[place]LE[place]) [id number] [place] N[place] [id number] Yahaira Nima 08/23/2021 1 [place] CRISTIANOETTAfia Syed J Nima [id number] [place] Nima 08/23/2021 3 [place] [employer] [place]MED[place]LE[place]) [id number] Yahaira Nima [id number] [place] Nima 02/22/2022 1 [place] CRISTIANOETTAfia Russ Nima [id number] 76 [place] Nima 02/22/2022 3 [place] [employer] (MEDICARE SUPPLEMENT) [id number] [place]a Nima [id number] [place] N[place] Notes Date Note Type Note Provider [...] is better now. Atiya Dior MD [address], [place], [address], [facility] [place] 10/12/2020 10:55:40 11/06/2020 text/html Follow up, dl cedeno had recent surgery and is still healing from back surgery by Dr. Talley. Patient has been tachycardiac since surgery which has improved on its own. She says she is having trouble with pain in bilateral upper thighs with walking. She is only taking Tylenol for pain. she did not try propranolol. Atiya Dior MD [address], [place], [address], [facility] 11/10/2020 17:09:55 03/08/2021 text/html Here for f/u on blood pressure. Reports that even taking half of the 5 mg amlodipine tablet she is feeling too dizzy and fatigued. KARINA HIGUERA [address], [place], [address], [facility] 03/08/2021 19:35:15 08/23/2021 text/html Here to follow u p regarding blood pressure. She has brought her log with her today. BPs are averaging 120s/60s. Her heart rate is usually elevated in the 90s-100s. Has had some dizziness but reports she thinks its allergy related. Pt does have h/o vertigo. KARINA HIGUERA [address], [place], [address], [facility] [place] 08/23/2021 13:48:40 02/22/2022 text/html She has [...] up in the am. Atiya Dior MD [address] [place] [address], [id number] - [facility], [place] 02/25/2022 05:13:33 OBGyn Episode No OBEpisode recorded.
--- OUTSIDE RECORDS SUMMARY | 2024-10-09 13:43 | XMS_ITS | Data Portability ---
Author Organization [place] - [facility], [facility]- Address [address] [facility] [address] [place] [address] Care Team Providers Care Clinical Marketing Manager Name Role Phone ATIYA LIM Primary Care Provider [phone] Assessment Encounter Date Assessment Date Assessment LastModified [...] and may contain typographical and/or grammatical inaccuracies. [email or web address] Not available 02/20/2019 13:50:16 03/27/2019 03/27/2019 Impression: [...] and may contain typographical and/or grammatical inaccuracies. [email or web address] Not available 03/27/2019 11:42:54 03/05/2020 03/05/2020 DIAGNOSTIC [...] that a second opinion be sent to [facility]. Not available 03/18/2020 07:27:59 Plan of Treatment Reminders Order Date Submit Date Provider Last Modified By Organization Details Last Modified Time Details Appointments None recorded. Lab None recorded. Referral None recorded. Procedures None recorded. Surgeries None recorded. [facility], [address] [facility], [address], [place], [address], 0 17:15:23 MRI, lumbar spine, w/o contrast 2019 [facility], [address] [facility], [address], [place], [address], 0 09:17:39 Medication Orders Compound 309 2018 019 [facility], [address], [place], [address], 9 12:05:47 Patient TargetsNo targets recorded. Patient InstructionsNo instructions recorded. Reason for Referral None Reported. Results Created Date Observation Date Name Description Value Unit Range Abnormal Flag Note LastModifiedBy Organization Detail LastModifiedTime 03/12/20 20 03/12/2020 MRI, lumba r spine , w/o contr ast No observ ation record ed. [facility]- [address], [place], [address], 03/12/2020 16:36:42 Result Notes None recorded. Problems Name Problem SNOMED Code Status Onset Date Resolution Date Notes Provider Name and Address Organization Details Recorded Time No current problems or disability 282575231 Active HAYDEN Patel - [facility] 9 14:03:11 Lumbar radiculopathy 993509318 Active 2018 HAYDEN Patel - [facility] 9 14:07:50 Backache 169267977 Active 2018 Ju Bhagat [facility] 9 14:07:51 Problem Notes None recorded. Procedures Surgical History Date Name Laterality Status Provider Name and Address Organization Details Recorded Time 02/21/20 19 Injection Shoulder completed Crys Pascual [place] - [facility] 02/20/2019 13:09:09 05/22/18 94 Hysterectomy completed Daniel Sexton [facility] 03/05/2020 11:35:23 05/22/18 72 Gallbladder Surgery completed Daniel Wilcoxn [facility] 03/05/2020 11:35:23 05/22/18 68 Appendectomy completed Ju Bhagat [facility] 04/10/2018 15:08:34 05/22/18 60 Breast completed Daniel Sexton [facility] 03/05/2020 11:35:23 Imaging Results Imaging Date Name Status LastModified by Organiz ation Details LastModified Time 03/12/2020 MRI, lumbar spine, w/o contrast [email or web address] [place] [address] Physical Therapy- [address], [place], [address], 03/12/2020 16:36:42 Procedure Notes None recorded. Medical Equipment None Reported. Allergies Allergen ID Allergen Name Allergen Category Reaction Reaction Severity Criticality Documentation Date Start Date Code Code System Note Provider Name and Address Organization Details Recorded Time 67959 codeine medicatio n nausea moderate Not available 06/12/2018 2670 RxNorm Ju Bhagat [facility] 9 14:02:54 77627 acetamino phen / oxycodone medicatio n nausea moderate Not available 06/12/2018 49789 3 RxNorm Ju Bhagat [facility] 9 14:03:04 Medications Name Sig Start Date [...] Updated DateTime 02/20/2019 154.94 cm 37.4 kg/m2 57654.29 g Crys [place]ascual [place] - [facility] 02/20/2019 13:08:20 Date Recorded Body height Body mass index (BMI) Body weight Provider Name and Address Organization Details Last Updated DateTime 03/27/2019 154.94 cm 37.8 kg/m2 58461.47 g Crys Pascual [place] [facility] 03/27/2019 11:18:57 Date Recorded Body height Body mass index (BMI) Body weight Provider Name and Address Organization Details Last Updated DateTime 03/05/2020 154.94 cm 37.8 kg/m2 05606.47 g Daniel Sexton [place] - [facility] 03/05/2020 11:35:08 Date Recorded Body height Body mass index (BMI) Body weight Provider Name and Address Organization Details Last Updated DateTime 03/17/2020 154.94 cm 37.8 kg/m2 58080.47 g Robyn Cruz [place] - [facility] 03/17/2020 13:58:17 Date Recorded Body height Body mass index (BMI) Body weight Provider Name and Address Organization Details Last Updated DateTime 08/17/2020 154.94 cm 40.1 kg/m2 44817.58 g Asa Barnes MD [address], [place], [address], [place] - [facility] 08/17/2020 14:32:09 Social History Question Answer Notes LastModified by Organizat ion Details LastModified Time Tobacco Smoking Status Former Smoker Ju Bhagat thierry, [place] - [facility] 04/10/2018 15:08:34 Do You Have An Advance Directive? No [email or web address] Information not available 04/10/2018 Is Blood Transfusion Acceptable In An Emergency? Yes [email or web address] Information not available 04/10/2018 In The 14 [...] When Did You Quit Smoking? 1-5yearssincelast cigarette [email or web address] Information not available 04/10/2018 Live Alone Or With Others? Alone [email or web address] Information not available 04/10/2018 Have You Been Diagnosed With Menopause? Yes [email or web address] Information not available 04/10/2018 Have You Been Diagnosed With Vitamin D Or Calcium Deficiency? No [email or web address] Information not available 04/10/2018 Have You Had A Bone Density Test (DEXA) Performed In The Past 2 Years? If Yes: Where? When? [place] [email or web address] Information not available 04/10/2018 Have You Used Antacids Continuously For More Than 6 Months? Yes Information not available 03/05/2020 Have You Used Steroids Daily For More Than 3 Months? No [email or web address] Information not available 04/10/2018 Do You Have A Medical Power Of Garnett Fixer? Yes [email or web address] Information not available 04/10/2018 At What Age Did You Start Smoking Tobacco? 17 [email or web address] Information not available 04/10/2018 Has Tobacco Cessation Counseling Been Provided? No [email or web address] Information not available 04/10/2018 Sex: Unknown Functional Status Question Answer Note LastModified by Organizat ion Details LastModified Time What is your level of alcohol consumption? Occasional [email or web address] Information not available 04/10/2018 What is your exercise level? Occasional [email or web address] Information not available 04/10/2018 Mental Status None recorded. Family History Relationship Description Onset Age of this Age Resolved Age Notes LastModified by Organization Details LastModified Time Father No current problems or disability [email or web address] Not available 02/20 13:08:40 Mother No current problems or disability [email or web address] Not available 02/20 13:08:40 Medical History Condition [...] Anemia N Multiple Sclerosis N Heart Attack (NH) N Ulcers N Stomach Ulcers N Diabetes [...] SNOMED-CT Code Diagnosis ICD10 Code Diagnosis Note [id number] Bill Ruvalcaba MD [address] [place] [address] 04/10/2018 14:33:04 04/10/2018 15:37:52 Lumbar radiculopathy 458195318 M54.16 Backache 659522319 M54.9 [id number] [facility] [address] [place] [address] 06/12/2018 13:49:18 06/12/2018 14:08:09 Lumbar radiculopathy 249489322 M54.16 Backache 766005484 M54.9 [id number] Luke Pedroza MD [address] [address] [place] [address] 02/20/2019 13:00:00 02/20/2019 14:43:18 Localized, primary osteoarthritis of the shoulder region 066895161 M19.011 [id number] Luke Pedroza MD [address] [place] [address] 03/27/2019 11:13:54 03/28/2019 16:29:20 Synovitis/tenosynovit is - shoulder 578981799 M65.811 339021 Bill Ruvalcaba MD [address] [place] [address] 03/05/2020 10:49:33 03/05/2020 13:23:36 Lumbar radiculopathy 667582912 M54.16 Backache 933283021 M54.9 Spinal adriano nosis of lumbar region 17468447 M48.061 [id number] Bill Ruvalcaba MD [address] [place] [address] 03/17/2020 13:51:00 03/18/2020 13:44:59 Lumbar radiculopathy 546115130 M54.16 Backache 192627346 M54.9 Spinal adriano nosis of lumbar region 13651417 M48.429 [id number] Asa Barnes MD [facility] [address] [place] [address] 08/17/2020 13:57:11 08/18/2020 10:55:48 Spinal stenosis of lumbar region 29878006 M48.062 X-ray findings/i nterpretat ion: {{Mild Mod [...] she has any further questions. Lumbar spondylolisthesis 0111433262 51925 M43.16 Health Concerns Section Related Observation LastModified by Organization Detai ls LastModified Time None Recorded Concern Status LastModified by Organization Details LastModified Time None Recorded Advance Directives Directive N: Payers Insurance Date Sequence Insurance Name Policy Number Policy [place] Covered Member ID [place] Member ID Guarantor Name 12/30/2020 1 [place]: COURTNEY Herring [id number] Yahaira Herring 08/17/2020 2 [place] [id number] Yahaira Herring [id number] Yahaira Herring Notes Date Note Type [...] motion particularly abduction. Luke Pedroza MD [address], [place], [address], [place] [facility] 02/20/2019 13:50:23 03/27/2019 text/html Patient returns today for her right shoulder. Injection in her right shoulder 1 month ago did not help. She takes Aleve. She denied pain for several months now. She has pain at night. Luke Pedroza MD [address] [address], [place], [address], [place] [facility] 03/27/2019 12:07:50 03/05/2020 text/html L-spineReported bystaff.Location:[facility] Quality:aching; occasional; worsening Severity:mild Duration:date of onset: [...] following the procedure. Bill Ruvalcaba MD [address], [place], [address], [place] [facility] 03/10/2020 17:05:07 03/17/2020 text/html HISTORY OF PRESE NT Today, on 03/17/2020, Yahaira is a 74-year-old female who presents for review of her lumbar spine MRI results. Bill Ruvalcaba MD [address], [place], [address], [place] [facility] 03/18/2020 07:28:16 08/17/2020 text/html [...] without long lasting results. Asa Barnes MD [address], [place], [address], [facility] - [facility] 08/17/2020 16:46:20 OBGyn Episode No OBEpisode recorded.
--- OUTSIDE RECORDS SUMMARY | 2024-10-09 13:44 | XMS_ITS ---
Author Organization [facility] Address [address] [facility] [place] [address] Care Team Providers Care On Site Soil Evaluator Name Role Phone Lisa Card Primary Care Provider Unavailab Anne Borjas [phone] REASON FOR VISIT cx appt 08/13/24 Encounters Encounter Location Date Provider Diagnosis [address] [address] 07/31/2024 Anne Lin Plan Of Treatment Next Appt Details Provider Name:Sal Mace , 10/15/2024 01:00:00 PM, [address] [place], [address], Progress Notes * Yahaira JAINDOB: [birth year] (78 yo F)Acc No.[id number]:07/31/2024 Patient:?Yahaira JAIN :1945???Age:78 Y???Sex:Female Address:[address], [place] [address] * true * Date:? Generated for Printi ng/Fanicholasg/eTransmitting on:?10/09/2024 01:43 PM EDT
--- OUTSIDE RECORDS SUMMARY | 2024-10-09 13:44 | XMS_ITS | Patient Health Record ---
Author Organization [facility] Address [address] [facility] [address] [place] [address] Care Team Providers Care Angiographer Name Role Phone Karyna Clarke Unavailable [phone] Reason For Referral No Information Medications Medication SIG (Take, Route, Frequency, Duration) Notes Start Date End Date Status hydroCHLOROthiazide 1 ORAL daily for -3 [facility] 09/24/2012 Active Citalopram Hydrobromide 20MG ORAL for -3 [facility] 4 Active CeleBREX 200MG ORAL for -3 [facility] 10/15/2013 Ac tive Vitamin E 200UNITS 1 ORAL daily for -3 [facility] 09/24/2012 Active Atenolol 25MG 1 ORAL DAILY for -3 [facility] 09/24/2012 Active Calcium 1 ORAL daily for -3 [facility] 09/24/2012 Active Vitamin D3 1000 IU ORAL daily for -3 [facility] 09/24/2012 Active Addison Jelly 1 ORAL daily for -3 [facility] 09/24/2012 Active Problems Problem Type SNOMED Code ICD Code Onset Dates Problem Status W/U Status Risk Notes Problem Menopausal symptom (69656500) Symptomatic menopausal or female climacteric states (627.2) Active confirmed Major Problem Gynecological examination normal (974791229922726) Routine gynecological examination (V72.31) Active confirmed Diag Problem Exercises teaching, guidance, and counseling (473192245) Exercise counseling (V65.41) Active confirmed Diag Problem Screening for malignant neoplasm of colon (893671283) Special screening for malignant neoplasms, colon (V76.51) Active confirmed Major Plan Of Treatment No Information Insurance Providers Payer Name Payer Address Payer Phone Subscriber Number Group Number Insured Name Patient Relationship to Insured Coverage Start Date Coverage End Date MEDICARE [address] [place], [place] [id number] [phone] [id number] SUSYSILVESTRENATALY Self - patient is the insured 1 MEDEX [address] [place] [address] [phone] [id number] JOHN JAINETTA Self - patient is the insured 1
== END 2024-10-09 13:48 | disposition home or self-care (01) ==
LOC: HO.HNS 13:08
PROVIDERS: Visit Provider Neurological Surgery
DX: Z98.1 Arthrodesis status (principal)
CPT/HCPCS: 99024

== ENCOUNTER → 2024-10-09 13:11 | Outpatient (BNV) | payer MEDICARE, SELFPAY | PROVIDERS: Visit Provider Radiology Diagnostic Radiology | DX: M51.369 Other intervertebral disc degeneration, lumbar region without mention of lumbar back pain or lower extremity pain (principal) | CPT/HCPCS: 72110 ==

== ENCOUNTER 2024-10-17 15:00 | Outpatient (AMB) | payer MEDICARE, SELFPAY ==
--- OUTSIDE RECORDS SUMMARY | 2024-10-17 15:02 | XMS_ITS | Patient Health Record ---
Author Organization [facility] Physician Yoseph es Billing Info Address [address] [place] [address] [place] [address] Support Name Relationship Address Phone Tricia Real Emergency Contact [address] [place] [address] Yahaira Herring Guarantor Unknown [phone] Allergies Allergen (clinical drug ingredient) Drug/Non Drug [...] Problem Status W/U Status Risk Notes Problem 554000562811849 Spondylolisthesi s, lumbar region (M43.16) Active confirmed Problem 477208788 Radiculopathy, lumbar region (M54.16) Active confirmed Problem 46303670 Spinal stenosis, 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) Active confirmed Problem 614516806 Lumbar radiculopathy (M54.16) Active confirmed Problem 367420113 Lumbar spondylos is (M47.816) Active confirmed Problem 437020110 Lumbar radiculopathy, chronic (M54.16) Active confirmed Problem 174633624 Spondylolisthesi s, unspecified spinal region (M43.10) Active confirmed Problem 70040312 Hypertension, unspecified type (I10) Active confirmed Problem 210033185 Gastroesophageal reflux disease, unspecified whether esophagitis present (K21.9) Active confirmed Plan Of Treatment Future Test Test Name Order Date MRI-LUMBAR SPINE; W/O CONTRAST MATL (721 48) 08/18/2020 XRAY- SPINE LUMBAR AP AND LAT/SPOT (7210 0)([facility]) 11/12/2020 CT- LUMBAR SPINE W/O CONTRAST (73379)([facility]) 01/12/2021 XRAY- SPINE LUMBAR AP AND LAT/SPOT (7210 0)([facility]) 03/16/2021 CT- [facility] W[facility]O CONTRAST (97549[facility] 07/13/2021 Insurance Providers Payer Name Payer Address Payer Phone Subscriber Number Group Number Insured Name Patient Relationship to Insured Coverage Start Date Coverage End Date MEDICARE [place] PART B [address] [facility] [address] [place], [place] [id number] Yahaira Herring Self - patient is the insured [facility] PPO [address] [place], [place] [id number] Yahaira Herring Self - patient is the insured Medical (General) History Medical History History ICD Code Lumbar radiculopathy Hypertension, unspecified type I10 Gastroesophageal reflux disease, unspeci fied whether esophagitis present K21.9 Spondylolisthesis, unspecified spinal re gion M43.10 Surgical History Surgery Date(Month/Year) hysterectomy gall bladder surgery appendectomy breast surgery Hospitalization History Reason Date(Month/Year) See Above
--- NOTE | 2024-10-17 15:07 | MHC.OFFVIS ---
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 She was actually seen in the hospital on 10/03/2024 with concerns of a TIA. She was found to have an acute stroke on MRI for the left frontoparietal region. At that time was seen by Neurology and recommended 3-6 months of oral anticoagulation. In addition the patient had a CAT scan of the carotids. She now presents for vascular follow-up. [facility] Medical History IBS (irritable bowel syndrome) Allergies Urticaria Dyslipidemia Type 2 diabetes mellitus without complication, without long-term current use of insulin Hearing impairment History of adenomatous polyp of colon Lumbar back pain with radiculopathy affecting left lower extremity Obesity (BMI 30-39.9) Paget's disease of the bone Osteopenia GERD (gastroesophageal reflux disease) Impaired fasting glucose Anxiety and depression Essential hypertension Surgical History Hx of LASIK Hx of left cataract extraction Hx of tubal ligation H/O colonoscopy History of partial hysterectomy History of appendectomy History of cholecystectomy H/O breast surgery History of lumbar discectomy Social History Household Members: Family Housing: House Are you a primary child care centre manager to a significant other at home: No Do you presently have visiting nurse or other home services: No Alcohol intake: never Patient Tobacco Use Status: Former Tobacco user e-Cigarette/Vaping Use: Never Used Second Hand Smoke Exposure: Yes service: No Current occupational status: retired Cognitive needs: No Hearing needs: No Vision needs: Yes (Reading glasses) Review of Systems Const All systems reviewed & are unremarkable except as noted in HPI and below Reports no additional complaints ENT Reports Normal hearing present Card Denies chest pain, Denies chest pain at rest, Denies chest pain with activity and Denies pedal edema Resp Denies cough GI Denies abdominal pain Musc Denies abnormal gait, Denies muscle cramps and Denies radiating pain into limb Skin/Breast Denies skin ulcer and Denies wounds Neuro Reports Normal hearing present and Denies abnormal gait Psych Reports no additional complaints Physical Exam Vital Signs: Last Vital Signs BP 132/68 10/17/24 15:22 Const General: cooperative, healthy appearing and comfortable Orientation/consciousness: oriented to person, oriented to place and oriented to time HEENT Head: Yes normal to inspection Neck Neck: Yes normal visual inspection Carotids: no bruits Chest Chest palpation & inspection: normal inspection of the chest Resp Effort & Inspection: normal respiratory effort and able to speak in complete sentences Auscultation: clear to auscultation bilaterally, no crackles, no rales, no rhonchi and no wheezes Cardio Rate: regular rate Rhythm: regular rhythm Heart sounds: S1 normal heart sound present and S2 normal heart sound present Bruits: no carotid bruits Peripheral pulses: Peripheral pulses 2+ throughout GI Inspection: Yes normal to inspection Skin Wounds: no wounds Hair: normal Neuro General: oriented to person, oriented to place and oriented to time Cranial nerves: Yes CN's II-XII intact bilaterally and Yes Normal hearing present Cognition (Neuro): normal cognition Motor exam (neuro): 5/5 motor strength present throughout Extrem Other: venous exam: No significant superficial varicosities or spider telangiectasias, minimal edema General: No clubbing, No cyanosis and No edema Psych Appearance: grossly normal Mental Status: mental status grossly normal Speech and movement: Normal speech and movement present Results Reviewed Results Reviewed: CT scan results dated 10/02/2024 demonstrates left-sided 60% stenosis in right side 50%. Assessment & Plan Assessment & Plan (1) Bilateral carotid artery stenosis: Code(s): I65.23 - Occlusion and stenosis of bilateral carotid arteries Category: Medical Plan: In short patient appears to have stable carotid disease. I did review the CAT scan it does not appear to be the source of embolism. Although left side is a proximally 60% it does not appear to be the source of embolism. She has not had any symptoms since that episode. I do agree with anticoagulation for now. I have taken the liberty of ordering a surveillance ultrasound in approximately 3 months time. Thank you for allowing us to assist in her care. If there are any questions or concerns please do not hesitate to contact us. Orders: Orders US carotid duplex BI 3 Months I65.23 - Occlusion and stenosis of bilateral carotid arteries Coding Level of Care Code New Pt Level 4 (23995) Complex EM visit Add On G2211 Diagnoses Bilateral carotid artery stenosis I65.23
[2024-10-17 15:20] VITALS: BP 126/60
[2024-10-17 15:22] VITALS: BP 132/68
== END 2024-10-17 15:43 | disposition home or self-care (01) ==
PROVIDERS: PCP Internal Medicine; Visit Provider Surgery Vascular Surgery
DX: I65.23 Occlusion and stenosis of bilateral carotid arteries (principal)
CPT/HCPCS: 99204; G2211

== ENCOUNTER → 2024-10-17 15:00 | Outpatient (BNVA) | payer MEDICARE, SELFPAY | PROVIDERS: PCP Internal Medicine; Visit Provider Surgery Vascular Surgery | DX: I65.23 Occlusion and stenosis of bilateral carotid arteries (principal) | CPT/HCPCS: 99202 ==

== ENCOUNTER 2024-10-24 13:34 | Outpatient (AMB) | payer MEDICARE, SELFPAY ==
[2024-10-24 13:36] VITALS: BP 132/60; PULSE 86; BMI 37.5
--- NOTE | 2024-10-24 13:36 | MHC.OFFVIS ---
Vital Signs 10/24/24 13:36 Height 5 ft 1 in Weight 198 lb 6.656 oz BMI 37.5 BP 132/60 Blood Pressure Location Lt brachial Position Sitting Pulse 86 Pulse Source Pulse Oximeter Intake Visit Reasons: [id number] up of TIA Nodulizer Required: No Tutor Coordinator: Tutor Coordinator Present Allergies codeine Adverse Reaction (Intermediate, Verified 10/24/24 13:38) seizure oxycodone [From Percocet] Adverse Reaction (Intermediate, Verified 10/24/24 13:38) Nausea and Vomiting Medication List - Last Reconciled 10/24/24 by KARINA Parker alpha lipoic acid 100 mg PO DAILY apixaban (Eliquis) 5 mg PO BID 90 days ascorbate calcium (vitamin C) 500 mg PO DAILY atorvastatin (Lipitor) 20 mg PO BEDTIME calcium citrate 630 mg PO DAILY cholecalciferol (vitamin D3) 25 mcg PO DAILY citalopram 20 mg PO BEDTIME empagliflozin (Jardiance) 10 mg PO DAILY labetalol 100 mg See Protocol PO BID 90 days methylcellulose (laxative) (Citrucel) 500 mg PO DAILY multivitamin 1 tab PO DAILY pantoprazole 20 mg PO DAILY@0630 HPI HPI [id number]-CQ-Padgat up of TIA: Details: Yahaira is an 79-year-old female with past medical history of hypertension, diabetes, obesity, sinus tachycardia, who was recently admitted to [facility] after having an episode of garbled speech, thought to be TIA. An MRI of the brain did show a subacute left parietal infarct thought to be embolic source. She was put on Eliquis for anticoagulation. She was noted to have sinus tachycardia but no atrial fibrillation. Today she reports that she has been doing well since her hospital discharge. She has no residual fax from her CVA. Her speech is entirely back to normal. She has not had any new neurological events. She is taking her Eliquis as directed and has had no bleeding issues. She has no heart palpitations and has never been diagnosed with atrial fibrillation. She reports having fatigue and daytime sleepiness. She tells me she does not sleep well at night. No chest discomfort at rest or with activity. No shortness of breath, PND, orthopnea or edema. Mostly sedentary. Takes meds as directed. [facility] Medical History IBS (irritable bowel syndrome) Allergies Urticaria Dyslipidemia Type 2 diabetes mellitus without complication, without long-term current use of insulin Hearing impairment History of adenomatous polyp of colon Lumbar back pain with radiculopathy affecting left lower extremity Obesity (BMI 30-39.9) Paget's disease of the bone Osteopenia GERD (gastroesophageal reflux disease) Impaired fasting glucose Anxiety and depression Essential hypertension Surgical History Hx of LASIK Hx of left cataract extraction Hx of tubal ligation H/O colonoscopy History of partial hysterectomy History of appendectomy History of cholecystectomy H/O breast surgery History of lumbar discectomy Social History Household Members: Family Housing: House Are you a primary direct care specialist to a significant other at home: No Do you presently have visiting nurse or other home services: No Alcohol intake: never Patient Tobacco Use Status: Former Tobacco user e-Cigarette/Vaping Use: Never Used Second Hand Smoke Exposure: Yes service: No Current occupational status: retired Cognitive needs: No Hearing needs: No Vision needs: Yes (Reading glasses) Review of Systems Const All systems reviewed & are unremarkable except as noted in HPI and below Reports fatigue ENT Details: Poor sleep quality, daytime sleepiness Denies dizziness Card Denies chest pain, Denies chest pain at rest, Denies chest pain with activity, Denies rapid heart rate, Denies pedal edema, Denies edema, Denies leg edema, Denies lightheadedness, Denies palpitations, Denies dyspnea, Denies dyspnea on exertion and Denies orthopnea Resp Denies cough, Denies dyspnea and Denies dyspnea on exertion GI Denies hematochezia and Denies change in stool character Musc Details: Body/muscle fatigue since taking statin Denies abnormal gait, Denies limited range of motion, Denies muscle cramps, Reports muscle weakness, Denies numbness, Denies radiating pain into limb, Denies stiffness and Denies tingling Neuro Denies abnormal gait, Denies dizziness, Denies numbness and Denies tingling Endo Reports fatigue and Denies palpitations Physical Exam Vital Signs: Last Vital Signs Pulse 86 10/24/24 13:36 BP 132/60 10/24/24 13:36 BMI result Body Mass Index 37.5 Const General: cooperative, healthy appearing, comfortable and no acute distress Orientation/consciousness: patient oriented x3 Neck Neck: Yes normal visual inspection Resp Effort & Inspection: normal respiratory effort Auscultation: clear to auscultation bilaterally, no rales, no rhonchi and no wheezes Cardio Rate: regular rate Rhythm: regular rhythm Heart sounds: S1 normal heart sound present, S2 normal heart sound present, no gallops, no murmurs and no rubs Neuro General: patient oriented x3 Extrem General: Yes normal to inspection Psych Appearance: grossly normal Mental Status: mental status grossly normal Speech and movement: Normal speech and movement present Results Reviewed Results Reviewed: Echocardiogram 10/03/2024 Conclusions: - 1. Low normal LV ejection fraction of 50-55% with impaired relaxation filling pattern 2. Calcific aortic and mitral valve changes noted with cardiac valvular Dopplers within normal limits 3. Normal RV systolic pressure 4. No gross pericardial effusion MR head/brain wo con 10/03/2024 IMPRESSION: Small acute left parietal infarcts. Findings were communicated to Myrna Yusuf by secure text message on 10/03/2024 at 11:18 AM and confirmed received at 11:19 AM. Assessment & Plan Assessment & Plan (1) CVA (cerebral vascular accident): Comment: 10/03/2024 Small embolic looking left middle cerebral artery area ischemic infarction resulting in transient motor aphasia. Carotid stenosis is moderate and did not require any surgical intervention. Likely cause of this stroke was cardiac source of embolism. My recommendation is to anticoagulate for next 3-6 months and during that time investigated her heart for atrial fibrillation. Blood pressure control and aggressive statin management is also recommended. - per neurology note Code(s): I63.9 - Cerebral infarction, unspecified Category: Medical Plan: Recent CVA initially with transient aphasia, now with full resolution of symptoms. CVA thought to be embolic in nature. No history or findings of atrial fibrillation to date. Clinically she is in sinus rhythm on examination. We discussed loop recorder, cardiac event monitor. She prefers a noninvasive approach to start. Will order a 30 day cardiac event monitor to evaluate for atrial fibrillation. If this is negative then loop recorder will be strongly considered. She is currently on labetalol to help with heart rate control. She is reporting fatigue and hypersomnia. Will check a home sleep study to evaluate for sleep apnea. She is agreeable to this plan. Cardiology follow-up 2 months, sooner if needed. (2) Sinus tachycardia: Code(s): R00.0 - Tachycardia, unspecified Category: Medical Plan: History of situational sinus tachycardia. TSH was normal. She is now on labetalol and heart rate is in the normal range. (3) Bilateral carotid artery stenosis: Code(s): I65.23 - Occlusion and stenosis of bilateral carotid arteries Category: Medical Plan: Head and neck CTA done while inpatient showing left proximal ICA 60 % stenosis, right ICA terminus up to 50% stenosis. This was not thought to be the cause of her CVA. She is on Eliquis and atorvastatin now. Labs done 10/03/2024 showed LDL 70. She has seen Dr. Salinas in follow-up and her carotids will be monitored. (4) Dyslipidemia: Code(s): E78.5 - Hyperlipidemia, unspecified Category: Medical Plan: LDL goal less than 70. Continue atorvastatin. (5) Essential hypertension: Code(s): I10 - Essential (primary) hypertension Category: Medical Plan: Blood pressure goal less than 130/80. Controlled at this time. Continue labetalol- which is effective at treating both her blood pressure and heart rate. (6) Hospital discharge follow-up: Code(s): Z09 - Encounter for follow-up examination after completed treatment for conditions other than malignant neoplasm Category: Medical Plan: Discharge summary reviewed (7) Hypersomnia: Code(s): G47.10 - Hypersomnia, unspecified Category: Medical Plan: Home sleep study ordered. Plan I discussed with the patient her diagnoses of transient ischemic attack/embolic stroke, potentially originating from atrial fibrillation given her carotid stenosis. As she is already on Eliquis for anticoagulation, I advised against additional aspirin at this stage. I informed her that we are proceeding with a heart monitor to confirm the suspected atrial fibrillation, with potential escalation to a loop recorder to confirm our suspicion if needed.We also reviewed her lipid management, and I recommended discontinuing atorvastatin to alleviate her fatigue before starting with a low-dose rosuvastatin, explaining the potential for improved tolerance. I addressed possible bruising and contraindications with her massage therapy due to anticoagulation. I arranged consultations for sleep-study evaluations due to her fatigue and potential sleep apnea contributing to Afib risk. Consent discussions focused on alternatives and patient satisfaction with therapeutic options. Orders: Orders ECG 30 day event monitor Today I63.9 - Cerebral infarction, unspecified, R00.2 - Palpitations RT home sleep study Today G47.10 - Hypersomnia, unspecified Medications: New rosuvastatin Change from atorvastatin 5 mg PO DAILY 30 tabs 3RF Patient Instructions: - Start a new lower-dose rosuvastatin as discussed. - Monitor for signs of bleeding; continue Eliquis, 5 mg twice a day. - Wear the cardiac event monitor as much as possible, including while sleeping. - Utilize compression stockings to manage leg swelling. - Await details for a home sleep study to evaluate for sleep apnea. - Report any new or worsening symptoms. - Avoid deep muscle massage due to increased bruising risk. - Follow up in 6 weeks or sooner if the heart monitor indicates atrial fibrillation. - Maintain an active lifestyle within comfort limits. Patient was informed and verbally consented to the use of an ambient scribe for clinic note documentation during this visit. Visit time spent on chart review, interview, assessment, orders, documentation. Coding Level of Care Code Est Pt Level 4 (61575) Complex EM visit Add On G2211 Diagnoses CVA (cerebral vascular accident) I63.9 Sinus tachycardia R00.0 Bilateral carotid artery stenosis I65.23 Dyslipidemia E78.5 Essential hypertension I10 Hospital discharge follow-up Z09 Hypersomnia G47.10 Time Spent (min) 38
--- OUTSIDE RECORDS SUMMARY | 2024-10-24 16:07 | XMS_ITS | Patient Health Record ---
Author Organization [facility] Physician Yoseph es Billing Info Address [address] [place] [address] [place] [address] Support Name Relationship Address Phone Tricia Real Emergency Contact [address] [place] [address] Yahaira Herring Guarantor Unknown [phone] Allergies Allergen (clinical drug ingredient) Drug/Non Drug [...] Problem Status W/U Status Risk Notes Problem [id number] Spondylolisthesi s, lumbar region (M43.16) Active confirmed Problem 087033562 Radiculopathy, lumbar region (M54.16) Active confirmed Problem 36456846 Spinal stenosis, 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) Active confirmed Problem 747079555 Lumbar radiculopathy (M54.16) Active confirmed Problem 789320773 Lumbar spondylos is (M47.816) Active confirmed Problem 998257788 Lumbar radiculopathy, chronic (M54.16) Active confirmed Problem 288522169 Spondylolisthesi s, unspecified spinal region (M43.10) Active confirmed Problem 15556347 Hypertension, unspecified type (I10) Active confirmed Problem 077481663 Gastroesophageal reflux disease, unspecified whether esophagitis present (K21.9) Active confirmed Plan Of Treatment Future Test Test Name Order Date MRI-LUMBAR SPINE; W/O CONTRAST MATL (721 48) 08/18/2020 XRAY- SPINE LUMBAR AP AND LAT/SPOT (7210 0)([facility]) 11/12/2020 CT- LUMBAR SPINE W/O CONTRAST (93216)([facility]) 01/12/2021 XRAY- SPINE LUMBAR AP AND LAT/SPOT (7210 0)([facility]) 03/16/2021 CT[facility]O [facility]AST (76618[facility] 07/13/2021 Insurance Providers Payer Name Payer Address Payer Phone Subscriber Number Group Number Insured Name Patient Relationship to Insured Coverage Start Date Coverage End Date [place]ARE [place] B [address] [facility] [place] [id number] Yahaira Herring Self - patient is the insured [facility] PPO [address] [place], [place] [id number] [phone] [id number] Yahaira Herring Self - patient is the insured Medical (General) History Medical History History ICD Code Lumbar radiculopathy Hypertension, unspecified type I10 Gastroesophageal reflux disease, unspeci fied whether esophagitis present K21.9 Spondylolisthesis, unspecified spinal re gion M43.10 Surgical History Surgery Date(Month/Year) hysterectomy gall bladder surgery appendectomy breast surgery Hospitalization History Reason Date(Month/Year) See Above
== END 2024-10-24 14:14 | disposition home or self-care (01) ==
LOC: HO.HCS 13:35
PROVIDERS: PCP Internal Medicine; Visit Provider Nurse Practitioner Family
DX: I63.9 Cerebral infarction, unspecified (principal); R00.0 Tachycardia, unspecified; I65.23 Occlusion and stenosis of bilateral carotid arteries; E78.5 Hyperlipidemia, unspecified; I10 Essential (primary) hypertension; Z09 Encounter for follow-up examination after completed treatment for conditions other than malignant neoplasm; G47.10 Hypersomnia, unspecified
CPT/HCPCS: 99214; G2211

== ENCOUNTER → 2024-10-24 13:34 | Outpatient (BNVA) | payer MEDICARE, SELFPAY | PROVIDERS: PCP Internal Medicine; Visit Provider Nurse Practitioner Family | DX: Z09 Encounter for follow-up examination after completed treatment for conditions other than malignant neoplasm (principal); I63.9 Cerebral infarction, unspecified; I65.23 Occlusion and stenosis of bilateral carotid arteries; I10 Essential (primary) hypertension; E78.5 Hyperlipidemia, unspecified; R00.0 Tachycardia, unspecified; G47.10 Hypersomnia, unspecified | CPT/HCPCS: 99212 ==

== ENCOUNTER 2024-10-25 14:02 | Outpatient (AMB) | payer MEDICARE, SELFPAY ==
--- OUTSIDE RECORDS SUMMARY | 2024-10-25 14:05 | XMS_ITS | Patient Health Record ---
Author Organization [facility] Physician Yoseph es Billing Info Address [address] [place] [address] [place] [address] Support Name Relationship Address Phone Tricia Real Emergency Contact [address] [place] [address] Yahaira Herring Guarantor Unknown Allergies Allergen [...] Problem Status W/U Status Risk Notes Problem [id number] Spondylolisthesi s, lumbar region (M43.16) Active confirmed Problem 465703560 Radiculopathy, lumbar region (M54.16) Active confirmed Problem 20357515 Spinal stenosis, 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) Active confirmed Problem 110989294 Lumbar radiculopathy (M54.16) Active confirmed Problem 573521944 Lumbar spondylos is (M47.816) Active confirmed Problem 244008995 Lumbar radiculopathy, chronic (M54.16) Active confirmed Problem 225554513 Spondylolisthesi s, unspecified spinal region (M43.10) Active confirmed Problem 57461110 Hypertension, unspecified type (I10) Active confirmed Problem 658474736 Gastroesophageal reflux disease, unspecified whether esophagitis present (K21.9) Active confirmed Plan Of Treatment Future Test Test Name Order Date MRI-LUMBAR SPINE; W/O CONTRAST MATL (721 48) 08/18/2020 XRAY- SPINE LUMBAR AP AND LAT/SPOT (7210 0)([facility]) 11/12/2020 CT- LUMBAR SPINE W/O CONTRAST (99061)([facility]) 01/12/2021 XRAY- SPINE LUMBAR AP AND LAT/SPOT (7210 0)([facility]) 03/16/2021 CT- [facility] W/O CONTRAST (25231[facility] 07/13/2021 Insurance Providers Payer Name Payer Address Payer Phone Subscriber Number Group Number Insured Name Patient Relationship to Insured Coverage Start Date Coverage End Date [place]ARE [place] PART B [address] [facility] [place], [place] [id number] Yahaira Herring Self - patient is the insured [facility] PPO [address] [place], [place] [id number] Yahaira Herring Self - patient is the insured Medical (General) History Medical History History ICD Code Lumbar radiculopathy Hypertension, unspecified type I10 Gastroesophageal reflux disease, unspeci fied whether esophagitis present K21.9 Spondylolisthesis, unspecified spinal re gion M43.10 Surgical History Surgery Date(Month/Year) hysterectomy gall bladder surgery appendectomy breast surgery Hospitalization History Reason Date(Month/Year) See Above
--- NOTE | 2024-10-25 14:08 | MHC.PC.OV ---
Vital Signs 10/25/24 14:10 10/25/24 14:42 Height 5 ft 1 in Weight 198 lb 4 oz BMI 37.5 BP 130/60 Blood Pressure Location Lt brachial Position Sitting Pulse 99 Pulse Source Pulse Oximeter Temp 97.5 F Temp Source Temporal Artery Scan Pulse Oximetry (%) 90 L 97 Oxygen Delivery Method Room Air Room Air Intake Visit Reasons: [facility] 10/03/24 Intake Note: Patient is here for hospital discharge and TCM follow up. Patient was discharged from [facility] on 10/03/24. Graphic Editor Required: No Addiction Medicine Physician: Not Required per policy Accompanied by: Self / Same As Patient Allergies codeine Adverse Reaction (Intermediate, Verified 10/25/24 14:09) seizure oxycodone [From Percocet] Adverse Reaction (Intermediate, Verified 10/25/24 14:09) Nausea and Vomiting Medication List - Last Reconciled 10/25/24 by iLsa Card PA-C alpha lipoic acid 100 mg PO DAILY apixaban (Eliquis) 5 mg PO BID 90 days ascorbate calcium (vitamin C) 500 mg PO DAILY calcium citrate 630 mg PO DAILY cholecalciferol (vitamin D3) 25 mcg PO DAILY citalopram 20 mg PO BEDTIME empagliflozin (Jardiance) 10 mg PO DAILY labetalol 100 mg See Protocol PO BID 90 days methylcellulose (laxative) (Citrucel) 500 mg PO DAILY multivitamin 1 tab PO DAILY pantoprazole 20 mg PO DAILY@0630 rosuvastatin 5 mg PO DAILY Tobacco use date assessed: 10/25/24 Fall risk assessment: No Falls in past year Last assessed Fall Risk: 10/25/24 Dental Screening Dental Screen Date: 06/03/24 HPI [facility] 10/03/24 HPI Details [id number] female with past medical history of dyslipidemia, type 2 diabetes mellitus, anxiety, depression, hypertension, GERD, obesity last seen 05/2024 coming in for hospital discharge follow up. In review of the notes, patient was seen in [facility] ED 10/03/2024 after an episode of garbled speech CTA showing stenosis of carotid artery an MRI of the brain positive for small acute left parietal infarct. Neurology consult recommended 3-6 months of oral anticoagulation. Patient was discharged home 10/03/2024 patient was seen by spine clinic 10/09/2024 sciatic pain has resolved. Seen by vascular surgery 09/2024 recommended continuation on anticoagulation and ultrasound in 3 months. She was seen by Cardiology 10/24/2024 recommended to continue on anticoagulation for 3-6 months 30 day cardiac event monitor was ordered advised to continue on atorvastatin with LDL goal less than 70. Presenting with following up on multiple chronic conditions, including postoperative lumbar spine issues and hyperlipidemia management. Following lumbar surgery, the patient is experiencing unresolved Trendelenburg gait. The left leg sciatica has significantly improved with notable pain relief. Current new prescription management of hyperlipidemia involves transitioning from atorvastatin, due to adverse effects, to rosuvastatin at a reduced dose of 5 mg. Type 2 Diabetes Mellitus is to remain managed via diet and Jardiance, with regular blood sugar monitoring. Anemia was mentioned with a need for repeat blood work to monitor levels. Reports possible nocturnal allergy-induced pruritus within home setting, unresponsive to previous treatment interventions. TCM TCM Information Date of Discharge 10/03/24 Discharged From [facility] Interactive Contact Date (Reference documentation from this date) 10/04/24 FOR[facility]LY [facility] Medical History (Updated 10/25/24 @ 14:53 by Lisa Card PA-C) IBS (irritable bowel syndrome) Allergies Urticaria Dyslipidemia Type 2 diabetes mellitus without complication, without long-term current use of insulin Hearing impairment History of adenomatous polyp of colon Lumbar back pain with radiculopathy affecting left lower extremity Obesity (BMI 30-39.9) Paget's disease of the bone Osteopenia GERD (gastroesophageal reflux disease) Impaired fasting glucose Anxiety and depression Essential hypertension Surgical History (Updated 10/25/24 @ 14:15 by JOSH Keys) History of back surgery Hx of LASIK Hx of left cataract extraction Hx of tubal ligation H/O colonoscopy History of partial hysterectomy History of appendectomy History of cholecystectomy H/O breast surgery History of lumbar discectomy Social History Household Members: Family Housing: House Are you a primary long term care social worker to a significant other at home: No Do you presently have visiting nurse or other home services: No Alcohol intake: never Patient Tobacco Use Status: Former Tobacco user e-Cigarette/Vaping Use: Never Used Second Hand Smoke Exposure: Yes service: No Current occupational status: retired Cognitive needs: No Hearing needs: No Vision needs: Yes (Reading glasses) Questionnaire Thrive Questionnaire Date Thrive assessed: 10/03/24 PARISH-7 AMB Questionnaire PARISH-7 Date PARISH - 7 assessed: 06/03/24 Source: Developed by Drs. Dinh Trejo, Nicole Bhagat, Bari Sheikh and colleagues, with an educational melvin from [employer]. Review of Systems Const Denies body aches, Denies chills, Denies fever(s), Denies headache(s) and Denies poor appetite Eyes Reports no additional complaints ENT Denies dysphagia, Denies dizziness, Denies headache(s) and Denies odynophagia Card Denies chest pain, Denies syncope, Denies edema, Denies irregular heart rhythm, Denies lightheadedness and Denies dyspnea Resp Denies cough and Denies dyspnea GI Denies abdominal pain, Denies constipation, Denies dysphagia, Denies diarrhea, Denies nausea, Denies odynophagia and Denies vomiting Reports no additional complaints Musc Reports no additional complaints and Denies abnormal gait Skin/Breast Reports system reviewed and no additional complaints, except as documented Neuro Denies abnormal gait, Denies dizziness, Denies syncope and Denies headache(s) Psych Reports no additional complaints Physical exam (Primary Care) Tobacco/Smoking Status: Tobacco use Status Tobacco use date assessed 06/03/24 08/27/24 11:30 Patient Tobacco Use Status Former Tobacco user 10/03/24 15:06 e-Cigarette/Vaping Use Never Used 08/27/24 11:30 Thrive Assessment: Date of Thrive Assessment Date Thrive assessed 10/03/24 10/04/24 14:58 Const General: cooperative, healthy appearing, comfortable and no acute distress Orientation/consciousness: patient oriented x3 HENMT Head: Yes normocephalic Ears: hearing grossly normal bilaterally General nose exam: Normal external nose present Eyes General: appearance normal, both eyes and all related structures Conjunctivae: conjunctivae normal Neck Neck: Yes full ROM and Yes no lymphadenopathy Resp Effort & Inspection: normal respiratory effort Auscultation: clear to auscultation bilaterally, no crackles, no rales, no rhonchi and no wheezes Cardio Rate: regular rate Rhythm: regular rhythm Skin Other: Excoriations of the forearms General skin exam: no rashes or lesions noted Neuro General: patient oriented x3 Gait exam (Neuro): Normal gait present Extrem General: Yes normal to inspection, Yes full ROM and No edema Psych Affect: normal affect Attitude: cooperative Insight: Good insight present (Psych) Judgement: Good judgement present (Psych) Coding Level of Care Code Est Pt Level 4 (74097) Diagnoses Hypersomnia G47.10 CVA (cerebral vascular accident) I63.9 Bilateral carotid artery stenosis I65.23 Type 2 diabetes mellitus without complication, without long-term current use of insulin E11.9 Essential hypertension I10 Obesity (BMI 30-39.9) E66.9 Pruritus L29.9 Anemia D64.9 Assessment & Plan Assessment & Plan (1) Hypersomnia: Code(s): G47.10 - Hypersomnia, unspecified Category: Medical Plan: Undergoing sleep study with machine biller. (2) CVA (cerebral vascular accident): Comment: 10/03/2024 Small embolic looking left middle cerebral artery area ischemic infarction resulting in transient motor aphasia. Carotid stenosis is moderate and did not require any surgical intervention. Likely cause of this stroke was cardiac source of embolism. My recommendation is to anticoagulate for next 3-6 months and during that time investigated her heart for atrial fibrillation. Blood pressure control and aggressive statin management is also recommended. - per neurology note Code(s): I63.9 - Cerebral infarction, unspecified Category: Medical Plan: Advised good control of blood sugars, blood pressure and cholesterol. She was recently switched to rosuvastatin 5 mg by her machine biller. She will continue to follow with vascular surgery and Cardiology as well. (3) Bilateral carotid artery stenosis: Code(s): I65.23 - Occlusion and stenosis of bilateral carotid arteries Category: Medical Plan: Continue to follow with vascular surgery is scheduled for a repeat carotid ultrasound in January. (4) Type 2 diabetes mellitus without complication, without long-term current use of insulin: Code(s): E11.9 - Type 2 diabetes mellitus without complications Category: Medical Plan: Decrease the amount of carbohydrates such as pasta, bread, rice, and potatoes and limit the amount of sweets. Although fruits are generally healthy they should be eaten in moderation as they are still high in sugar. Hemoglobin A1c goal of less than 7%. Continue on Jardiance 10 mg (5) Essential hypertension: Code(s): I10 - Essential (primary) hypertension Category: Medical Plan: Continue on current blood pressure medication. Avoid salt intake and encourage healthy diet and regular exercise. (6) Obesity (BMI 30-39.9): Code(s): E66.9 - Obesity, unspecified Category: Medical Plan: Healthy diet and regular exercise is encouraged. (7) Pruritus: Code(s): L29.9 - Pruritus, unspecified Category: Medical Plan: Patient having itching of bilateral arms which she believes is caused by an allergen her household. Recommend the use of daily Zyrtec and keeping skin well hydrated with lotion. (8) Anemia: Code(s): D64.9 - Anemia, unspecified Category: Medical Plan: Ordered for repeat CBC Plan The continuation of multi-modal therapeutic plans ensures well-rounded care addressing lumbar recovery, cardiovascular, diabetic, and hematological health requirements. Emphasis moves towards efficacy of outpatient physical rehabilitation and pharmacologic cardiometabolic strategies. Anemia monitoring through imminent testing complements existing strategies. Home environment allergy exploration concludes with a Zyrtec trial for mitigation. Patient retains autonomy in driving, shifting therapy towards preserving quality of life with cascading presence across cardiology and endocrinology follow-ups to harmonize within broader health goals. This note was constructed using voice recognition software. While every effort has been made to ensure accuracy and line up machine operator, still areas may have been included sometimes these areas may affect the content or meeting of the given symptoms. Total time spent caring for the patient today was 20 minutes. This includes time spent before the visit reviewing the chart, time spent during the visit, and time spent after the visit and documentation. Patient was informed and verbally consented to the use of an ambient scribe for clinic note documentation during this visit. Medications: New cetirizine (All Day Allergy (cetirizine)) 10 mg PO DAILY 90 tabs 0RF Refilled empagliflozin (Jardiance) 10 mg PO DAILY 90 tabs 2RF
[2024-10-25 14:10] VITALS: BP 130/60; PULSE 99; TEMP 36.4; O2SAT 90; BMI 37.5
[2024-10-25 14:42] VITALS: O2SAT 97
== END 2024-10-25 14:51 | disposition home or self-care (01) ==
LOC: HO.HMCH 14:03
DX: G47.10 Hypersomnia, unspecified (principal); I63.9 Cerebral infarction, unspecified; E11.9 Type 2 diabetes mellitus without complications; I65.23 Occlusion and stenosis of bilateral carotid arteries; Z68.37 Body mass index [BMI] 37.0-37.9, adult; E66.9 Obesity, unspecified; I10 Essential (primary) hypertension; L29.9 Pruritus, unspecified; D64.9 Anemia, unspecified

== ENCOUNTER → 2024-10-25 14:02 | Outpatient (BNVA) | payer MEDICARE, SELFPAY | DX: G47.10 Hypersomnia, unspecified (principal); I63.9 Cerebral infarction, unspecified; I65.23 Occlusion and stenosis of bilateral carotid arteries; E11.9 Type 2 diabetes mellitus without complications; I10 Essential (primary) hypertension; E66.9 Obesity, unspecified; D64.9 Anemia, unspecified; L29.9 Pruritus, unspecified | CPT/HCPCS: 99212 ==

== ENCOUNTER → 2024-10-29 14:21 | Outpatient (REF) | payer MEDICARE, SELFPAY ==
--- OUTSIDE RECORDS SUMMARY | 2024-10-29 17:20 | XMS_ITS | Patient Health Record ---
Author Organization [facility] Physician Yoseph es Billing Info Address [address] [place] [address] [place] [address] Support Name Relationship Address Phone Tricia Real Emergency Contact [address] [place] [address] Yahaira Herring Guarantor Unknown [phone] Allergies Allergen (clinical drug ingredient) Drug/Non Drug [...] Problem Status W/U Status Risk Notes Problem [id number] Spondylolisthesi s, lumbar region (M43.16) Active confirmed Problem 601618912 Radiculopathy, lumbar region (M54.16) Active confirmed Problem 37792718 Spinal stenosis, 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) Active confirmed Problem 737178389 Lumbar radiculopathy (M54.16) Active confirmed Problem 663770192 Lumbar spondylos is (M47.816) Active confirmed Problem 561973254 Lumbar radiculopathy, chronic (M54.16) Active confirmed Problem 915242906 Spondylolisthesi s, unspecified spinal region (M43.10) Active confirmed Problem 77630180 Hypertension, unspecified type (I10) Active confirmed Problem 345953372 Gastroesophageal reflux disease, unspecified whether esophagitis present (K21.9) Active confirmed Plan Of Treatment Future Test Test Name Order Date MRI-LUMBAR SPINE; W/O CONTRAST MATL (721 48) 08/18/2020 XRAY- SPINE LUMBAR AP AND LAT/SPOT (7210 0)([facility]) 11/12/2020 CT- LUMBAR SPINE W/O CONTRAST (34818)([facility]) 01/12/2021 XRAY- SPINE LUMBAR AP AND LAT/SPOT (7210 0)([facility]) 03/16/2021 CT- [facility] W/O CONTRAST (77690[facility] 07/13/2021 Insurance Providers Payer Name Payer Address Payer Phone Subscriber Number Group Number Insured Name Patient Relationship to Insured Coverage Start Date Coverage End Date [place]ARE [place] PART B [id number] [facility] [place], [place] [id number] Yahaira Herring Self - patient is the insured [facility] PPO [address] [place], [place] [phone] [id number] Yahaira Herring Self - patient is the insured Medical (General) History Medical History History ICD Code Lumbar radiculopathy Hypertension, unspecified type I10 Gastroesophageal reflux disease, unspeci fied whether esophagitis present K21.9 Spondylolisthesis, unspecified spinal re gion M43.10 Surgical History Surgery Date(Month/Year) hysterectomy gall bladder surgery appendectomy breast surgery Hospitalization History Reason Date(Month/Year) See Above
== END ==
LOC: HO.CARD 14:21
PROVIDERS: PCP Internal Medicine; Visit Provider Nurse Practitioner Family
DX: I63.9 Cerebral infarction, unspecified (principal); R00.2 Palpitations
CPT/HCPCS: 93270

== ENCOUNTER → 2024-10-29 14:24 | Outpatient (BNV) | payer MEDICARE, SELFPAY | PROVIDERS: PCP Internal Medicine; Visit Provider Internal Medicine | DX: I47.10 Supraventricular tachycardia, unspecified (principal); R00.0 Tachycardia, unspecified | CPT/HCPCS: 93272 ==

== ENCOUNTER 2024-11-08 14:33 | Outpatient (REF) | payer MEDICARE, SELFPAY ==
--- OUTSIDE RECORDS SUMMARY | 2024-11-08 14:37 | XMS_ITS | Data Portability ---
Author Organization [place] [facility] angie Fermin, [place], [employer] Address [address] [place] [address] [place] [id number] Care Team Providers Care Electric Cell Tender Name Role Phone ATIYA LIM Primary Care Provider [phone] JALEEL ORELLANA Orthopedist [phone] ALBERTA JOYA Pain Management ARNIE BUSTAMANTE OTHER Assessment No assessment recorded. Plan of Treatment Reminders Order Date Submit Date Provider Last Modified By Organization Details Last Modified Time Details Appointments None recorded. Lab CMP, serum or plasma 2021 [facility] ([facility]), [address], [place], [address], 09:24:20 HbA1c (hemoglob in A1c), blood 2021 [facility] ([facility]), [address], [place], [address], 09:24:23 iron + total iron-bind ing capacity (TIBC), serum 2021 [facility] ([facility]), [address], [place], [address], 09:24:21 ferritin, serum or plasma 2021 [facility] ([facility]), [address], [place], [address], 09:24:22 CBC w/ auto diff 2021 [place] [facility] ([facility]), [address] [place] [address], [place], [address], 09:24:19 vitamin D, 25-hydrox y + 1,25-dihy droxy, serum 2021 [facility] [address] [place], [address], 14:36:53 lipid panel, serum 2021 [facility] ([place] [address] [place], [address], 14:36:53 CMP, serum or plasma 2021 [facility] ([place] [address] [place], [address], 14:36:52 CBC w/ auto diff 2021 022 [facility] ([place]), [address] [place], [address], 14:36:52 TSH + free T4, serum 2021 [facility]), [address] [place], [address], 14:36:51 Referral None recorded. Procedures None recorded. Surgeries None recorded. Imaging DEXA, axial skeleton + vertebral fracture assessmen t 2021 [facility] ([facility]), [address], [place], [address], 18:24:36 NM, myocardia l perfusion scan, w/ stress - Please do Mariluz Scan only, NO TREADMILL 2020 [email or web address] 6 [facility] (Diagnostic Imaging), [address], [place], [address], 12:04:59 Medication Orders olmesarta n 40 mg tablet 2021 [email or web address] [place], [address], 13:34:24 citalopra m 20 mg tablet 2021 [facility] [place], [address], 13:12:11 meclizine 25 mg tablet 2021 [facility] [place], [address], 13:12:10 pantopraz ole 40 mg tablet,de layed release 2021 [facility], [facility], [place], [address], 13:12:13 oxybutyni n chloride ER 10 mg tablet,ex tended release 24 hr 2021 [facility] [id number], [address], [place], [address], 13:10:36 olmesarta n 40 mg tablet 2020 [email or web address] [facility] [place], [address], 19:28:07 citalopra m 20 mg tablet 2020 021 [facility] [place], [address], 14:27:53 amlodipin e 5 mg tablet [email or web address] [facility] [address] [facility], [place], [address], 13:03:53 olmesarta n 40 mg tablet 2020 021 [email or web address], [place], [address], 17:07:39 pantopraz ole 40 mg tablet,de layed release 2020 021 [facility], [place], [address], 12:28:29 citalopra m 20 mg tablet 2020 021 [facility] [place], [address], 12:28:27 amlodipin e 5 mg tablet 2020 021 [id number], [address] [facility] [address], [place], [address], 13:03:53 Patient TargetsNo targets recorded. Patient Instructions Encounter Date Encounter Id Patient Instructions Last Modified By Organization Details Last Modified Time 02/22/2022 mammogram pending for 03/2022 [email or web address] Not available 02/22/2022 13:11:39 Reason for Referral None Reported. Results Created Date Observation Date Name Description Value Unit Range Abnormal Flag Note LastModifiedBy Organization Detail LastModifiedTime 11/30/1911/30/2021 TSH+F REE T4 TSH 1.670 uIU/m L 0.450- 4.500 Not Available [facility] ([facility]) [address] [place], [address], 11/30/2021 14:36:51 11/30/19 22 11/30/2021 TSH+F REE T4 T4,free(dire ct) 0.96 NG/dL 0.82-1 .77 Not Available [facility] ([facility]) [address] [place], [address], 11/30/2021 14:36:51 11/30/19 22 11/29/2021 CBC WITH DIFFE RENTI AL/PL ATELE T WBC 6.3 x10e3 /uL 3.4-10 .8 Not Available [facility] ([facility]) [address] [place], [address], 11/30/2021 14:36:52 11/30/19 22 11/29/2021 CBC WITH DIFFE RENTI AL/PL ATELE T RBC 4.50 x10e6 /uL 3.77-5 .28 Not Available [facility] ([facility]) [address] [place], [address], 11/30/2021 14:36:52 11/30/19 22 11/29/2021 CBC WITH DIFFE RENTI AL/PL ATELE T hemoglobin 9.6 g/dL 11.1-1 5.9 below low normal Not Available [facility] ([facility]) [address] [place], [address], 11/30/2021 14:36:52 11/30/19 22 11/29/2021 CBC WITH DIFFE RENTI AL/PL ATELE T hematocrit 32.1 % 34.0-4 6.6 below low normal Not Available [facility] ([facility]) [address] [place], [address], 11/30/2021 14:36:52 11/30/19 22 11/29/2021 CBC WITH DIFFE RENTI AL/PL ATELE T MCV 71 fL 79-97 below low normal Not Available [facility] ([facility]) [address] [place], [address], 11/30/2021 14:36:52 11/30/19 22 11/29/2021 CBC WITH DIFFE RENTI AL/PL ATELE T MCH 21.3 pg 26.6-3 3.0 below low normal Not Available [facility] ([facility]) [address] [place], [address], 11/30/2021 14:36:52 11/30/19 22 11/29/2021 CBC WITH DIFFE RENTI AL/PL ATELE T MCHC 29.9 g/dL 31.5-3 5.7 below low normal Not Available [facility] ([facility]) [address] [place], [address], 11/30/2021 14:36:52 11/30/19 22 11/29/2021 CBC WITH DIFFE RENTI AL/PL ATELE T RDW 15.5 % 11.7-1 5.4 above high normal Not Available [facility] ([facility]) [address] [place], [address], 11/30/2021 14:36:52 11/30/19 22 11/29/2021 CBC WITH DIFFE RENTI AL/PL ATELE T platelets 443 x10e3 /uL 150-45 0 Not Available [facility] ([facility]) [address] [place], [address], 11/30/2021 14:36:52 11/30/19 22 11/29/2021 CBC WITH DIFFE RENTI AL/PL ATELE T neutrophils 60 % not estab. Not Available [facility] ([facility]) [address] [place], [address], 11/30/2021 14:36:52 11/30/19 22 11/29/2021 CBC WITH DIFFE RENTI AL/PL ATELE T lymphs 27 % not estab. Not Available [facility] ([facility]) [address] [facility], [place], [address], 11/30/2021 14:36:52 11/30/19 22 11/29/2021 CBC WITH DIFFE RENTI AL/PL ATELE T monocytes 10 % not estab. Not Available [facility] ([facility]) [address] [facility], [place], [address], 11/30/2021 14:36:52 11/30/19 22 11/29/2021 CBC WITH DIFFE RENTI AL/PL ATELE T eos 2 % not estab. Not Available [facility] ([facility]) [address] [facility], [place], [address], 11/30/2021 14:36:52 11/30/19 22 11/29/2021 CBC WITH DIFFE RENTI AL/PL ATELE T basos 1 % not estab. Not Available [facility] ([facility]) [address] [place], [address], 11/30/2021 14:36:52 11/30/19 22 11/29/2021 CBC WITH DIFFE RENTI AL/PL ATELE T immature cells CREDIT RISK ANALYST Not Available [facility] ([facility]) [address] [place], [address], 11/30/2021 14:36:52 11/30/19 22 11/29/2021 CBC WITH DIFFE RENTI AL/PL ATELE T neutrophils (absolute) 3.7 x10e3 /uL 1.4-7. 0 Not Available [facility] ([facility]) [address] [facility], [place], [address], 11/30/2021 14:36:52 11/30/19 22 11/29/2021 CBC WITH DIFFE RENTI AL/PL ATELE T lymphs (absolute) 1.7 x10e3 /uL 0.7-3. 1 Not Available [facility] ([facility]) [address] [facility], [place], [address], 11/30/2021 14:36:52 11/30/19 22 11/29/2021 CBC WITH DIFFE RENTI AL/PL ATELE T monocytes(ab solute) 0.6 x10e3 /uL 0.1-0. 9 Not Available [facility] ([facility]) [address] [facility], [place], [address], 11/30/2021 14:36:52 11/30/19 22 11/29/2021 CBC WITH DIFFE RENTI AL/PL ATELE T eos (absolute) 0.2 x10e3 /uL 0.0-0. 4 Not Available [facility] ([facility]) [address] [facility], [place], [address], 11/30/2021 14:36:52 11/30/19 22 11/29/2021 CBC WITH DIFFE RENTI AL/PL ATELE T baso (absolute) 0.1 x10e3 /uL 0.0-0. 2 Not Available [facility] ([facility]) [address] [facility], [place], [address], 11/30/2021 14:36:52 11/30/19 22 11/29/2021 CBC WITH DIFFE RENTI AL/PL ATELE T immature granulocytes 0 % not estab. Not Available [facility] ([facility]) [address] [place], [address], 11/30/2021 14:36:52 11/30/19 22 11/29/2021 CBC WITH DIFFE RENTI AL/PL ATELE T immature grans (abs) 0.0 x10e3 /uL 0.0-0. 1 Not Available [facility] ([facility]) [address] [facility], [place], [address], 11/30/2021 14:36:52 11/30/19 22 11/29/2021 CBC WITH DIFFE RENTI AL/PL ATELE T NRBC CREDIT RISK ANALYST Not Available [facility] ([facility]) [address] [facility], [place], [address], 11/30/2021 14:36:52 11/30/19 22 11/29/2021 CBC WITH DIFFE RENTI AL/PL ATELE T hematology comments: CREDIT RISK ANALYST Not Available [facility] ([facility]) [address] [facility], [place], [address], 11/30/2021 14:36:52 11/30/19 22 11/29/2021 COMP. METAB OLIC PANEL (14) glucose 131 mg/dL 65-99 above high normal Not Available [facility] ([facility]) [address] [facility], [place], [address], 11/30/2021 14:36:52 11/30/19 22 11/29/2021 COMP. METAB OLIC PANEL (14) BUN 14 mg/dL 8-27 Not Available [facility] ([facility]) [address] [place], [address], 11/30/2021 14:36:52 11/30/19 22 11/29/2021 COMP. METAB OLIC PANEL (14) creatinine 0.99 mg/dL 0.57-1 .00 Not Available [facility] ([facility]) [address] [place], [address], 11/30/2021 14:36:52 11/30/19 22 11/29/2021 COMP. METAB OLIC PANEL (14) eGFR 59 mL/mi n/1.7 3 >59 below low normal Not Available [facility] ([facility]) [address] [place], [address], 11/30/2021 14:36:52 11/30/19 22 11/29/2021 COMP. METAB OLIC PANEL (14) BUN/creatini ne ratio 14 12-28 Not Available [facility] ([facility]) [address] [place], [address], 11/30/2021 14:36:52 11/30/19 22 11/29/2021 COMP. METAB OLIC PANEL (14) sodium 139 mmol/ L 134-14 4 Not Available [facility] ([facility]) [address] [place], [address], 11/30/2021 14:36:52 11/30/19 22 11/29/2021 COMP. METAB OLIC PANEL (14) potassium 5.0 mmol/ L 3.5-5. 2 Not Available [facility] ([facility]) [address] [place], [address], 11/30/2021 14:36:52 11/30/19 22 11/29/2021 COMP. METAB OLIC PANEL (14) chloride 102 mmol/ L 96-106 Not Available [facility] ([facility]) [address] [place], [address], 11/30/2021 14:36:52 11/30/19 22 11/29/2021 COMP. METAB OLIC PANEL (14) carbon dioxide, total 23 mmol/ L 20-29 Not Available [facility] ([facility]) [address] [place], [address], 11/30/2021 14:36:52 11/30/19 22 11/29/2021 COMP. METAB OLIC PANEL (14) calcium 9.2 mg/dL 8.7-10 .3 Not Available [facility] ([facility]) [address] [place], [address], 11/30/2021 14:36:52 11/30/19 22 11/29/2021 COMP. METAB OLIC PANEL (14) protein, total 6.9 g/dL 6.0-8. 5 Not Available [facility] ([facility]) [address] [place], [address], 11/30/2021 14:36:52 11/30/19 22 11/29/2021 COMP. METAB OLIC PANEL (14) albumin 4.3 g/dL 3.7-4. 7 Not Available [facility] ([facility]) [address] [facility], [place], [address], 11/30/2021 14:36:52 11/30/19 22 11/29/2021 COMP. METAB OLIC PANEL (14) globulin, total 2.6 g/dL 1.5-4. 5 Not Available [facility] ([facility]) [address] [facility], [place], [address], 11/30/2021 14:36:52 11/30/19 22 11/29/2021 COMP. METAB OLIC PANEL (14) A/G ratio 1.7 1.2-2. 2 Not Available [facility] ([facility]) [address] [facility], [place], [address], 11/30/2021 14:36:52 11/30/19 22 11/29/2021 COMP. METAB OLIC PANEL (14) bilirubin, total 0.2 mg/dL 0.0-1. 2 Not Available [facility] ([facility]) [address] [facility], [place], [address], 11/30/2021 14:36:52 11/30/19 22 11/29/2021 COMP. METAB OLIC PANEL (14) alkaline phosphatase 76 IU/L 44-121 Not Available [facility] ([facility]) [address] [facility], [place], [address], 11/30/2021 14:36:52 11/30/19 22 11/29/2021 COMP. METAB OLIC PANEL (14) AST (SGOT) 13 IU/L 0-40 Not Available [facility] ([facility]) [address] [place], [address], 11/30/2021 14:36:52 11/30/19 22 11/29/2021 COMP. METAB OLIC PANEL (14) ALT (SGPT) 15 IU/L 0-32 Not Available [facility] ([facility]) [address] [facility], [place], [address], 11/30/2021 14:36:52 11/30/19 22 11/29/2021 LIPID PANEL cholesterol, total 181 mg/dL 100-19 9 Not Available [facility] ([facility]) [address] [place], [address], 11/30/2021 14:36:53 11/30/19 22 11/29/2021 LIPID PANEL triglyceride s 194 mg/dL 0-149 above high normal Not Available [facility] ([facility]) [address] [place], [address], 11/30/2021 14:36:53 11/30/19 22 11/29/2021 LIPID PANEL HDL cholesterol 48 mg/dL >39 Not Available [facility] ([facility]) [address] [place], [address], 11/30/2021 14:36:53 11/30/19 22 11/29/2021 LIPID PANEL VLDL cholesterol jamison 33 mg/dL 5-40 Not Available [facility] ([facility]) [address] [place], [address], 11/30/2021 14:36:53 11/30/19 22 11/29/2021 LIPID PANEL LDL chol calc ([facility]) 100 mg/dL 0-99 above high normal Not Available [facility] ([facility]) [address] [place], [address], 11/30/2021 14:36:53 11/30/19 22 11/29/2021 LIPID PANEL comment: CREDIT RISK ANALYST Not Available [facility] ([facility]) [address] [place], [address], 11/30/2021 14:36:53 11/30/19 22 11/30/2021 VITAM IN D, 1,25 + 25-HY DROXY calcitriol(1 ,25 di-oh vit D) 50.6 pg/mL 24.8-8 1.5 Ple ase note refer ence inter sara meyer e Not Available [facility] ([facility]) [address] [facility], [place], [address], 11/30/2021 14:36:53 11/30/19 22 11/30/2021 VITAM IN [...] 1. IOM (Inst itute of Medic ine). 2009. Dieta ry refer jacksone anne es for calci um and D. Monica rich [place]: The [facility] Press . 2. Fransisco whitley MF, Jhon hameed [place], Anup off-F errar i YOUNGBLOOD, et al. Evalu ation , treat ment, and preve ntion of vitam in D defic iency : an Endoc rine Socie ty clini jamison pract ice guide line. JCEM. 2010; 96(7) :1911 -30. Not Available [facility] ([facility]) [address] [facility], [place], [address], 11/30/2021 14:36:53 02/23/20 22 02/23/2022 CBC WITH PLATE LET AND DIFFE RENTI AL WBC 7.9 K/uL 3.8-11 .5 Not Available [facility]) [address] [facility] [facility] [address], [place], [address], 02/23/2022 09:24:18 02/23/20 22 02/23/2022 CBC WITH PLATE LET AND DIFFE RENTI AL red blood cell count (RBC) 4.67 M/mm3 3.60-5 .30 Not Available [facility]) [address] [place] [address] [address], [place], [address], 02/23/2022 09:24:18 02/23/20 22 02/23/2022 CBC WITH PLATE LET AND DIFFE RENTI AL hemoglobin (HGB) 13.1 gm/dL 11.5-1 5.5 Not Available [facility] ([facility]) [address] [place] [address] [address], [place], [address], 02/23/2022 09:24:18 02/23/20 22 02/23/2022 CBC WITH PLATE LET AND DIFFE RENTI AL hematocrit (HCT) 39.1 % 35.2-4 6.4 Not Available [facility] ([facility]) [address] [place] [address] [address], [place], [address], 02/23/2022 09:24:18 02/23/20 22 02/23/2022 CBC WITH PLATE LET AND DIFFE RENTI AL MCV 83.7 fL 79.0-9 9.0 Not Available [facility] ([facility]) [address] [place] [address] [address], [place], [address], 02/23/2022 09:24:18 02/23/20 22 02/23/2022 CBC WITH PLATE LET AND DIFFE RENTI AL MCH 28.1 pg 26.9-3 5.0 Not Available [facility]) [address] [place] [address] [address], [place], [address], 02/23/2022 09:24:18 02/23/20 22 02/23/2022 CBC WITH PLATE LET AND DIFFE RENTI AL MCHC 33.5 g/dL 30.4-3 4.8 Not Available [facility]) [address] [facility] [address], [place], [address], 02/23/2022 09:24:18 02/23/20 22 02/23/2022 CBC WITH PLATE LET AND DIFFE RENTI AL RDW NM fL 38.6-5 3.8 Unabl e to repor t RDW due to dimor phic red cell popul ation Not Available [facility] ([facility]) [facility] [address], [place], [address], 02/23/2022 09:24:18 02/23/20 22 02/23/2022 CBC WITH PLATE LET AND DIFFE RENTI AL platelet count 332 K/cum m 137-39 7 Not Available [facility] ([facility]) [facility] [address], [place], [address], 02/23/2022 09:24:18 02/23/20 22 02/23/2022 MANUA L DIFFE RENTI AL REVIE W/COU NT absolute immature granulocyte manual 0.00 K/uL 0.00-0 .03 Not Available [facility]) [facility] [address], [place], [address], 02/23/2022 09:24:20 02/23/20 22 02/23/2022 MANUA L DIFFE RENTI AL REVIE W/COU NT absolute basophil count manual 0.1 K/uL 0.0-0. 1 Not Available [facility] ([facility]) [address] [place] [address] [address], [place], [address], 02/23/2022 09:24:20 02/23/20 22 02/23/2022 MANUA L DIFFE RENTI AL REVIE W/COU NT absolute eosinophil count manual 0.2 K/uL 0.0-0. 6 Not Available [facility] ([facility]) [address] [facility] [address], [place], [address], 02/23/2022 09:24:20 02/23/20 22 02/23/2022 MANUA L DIFFE RENTI AL REVIE W/COU NT absolute monocyte count manual 0.8 K/uL 0.3-1. 0 Not Available [facility] ([facility]) [facility] [address], [place], [address], 02/23/2022 09:24:20 02/23/20 22 02/23/2022 MANUA L DIFFE RENTI AL REVIE W/COU NT absolute lymphocyte count manual 3.0 K/uL 0.9-3. 6 Not Available [facility]) [facility] [address], [place], [address], 02/23/2022 09:24:20 02/23/20 22 02/23/2022 MANUA L DIFFE RENTI AL REVIE W/COU NT absolute neutrophil count manual 3.9 K/uL 2.0-8. 2 Not Available [facility] ([facility]) [address] [place] [address] Dr [address], [place], [address], 02/23/2022 09:24:20 02/23/20 22 02/23/2022 MANUA L DIFFE RENTI AL REVIE W/COU NT microcytosis SLIGHT Not Available [facility] ([facility]) [facility] [address], [place], [address], 02/23/2022 09:24:20 02/23/20 22 02/23/2022 MANUA L DIFFE RENTI AL REVIE W/COU NT anisocytosis MODERA TE Not Available [facility] ([facility]) [address] [place] [address] Dr [address], [place], [address], 02/23/2022 09:24:20 02/23/20 22 02/23/2022 MANUA L DIFFE RENTI AL REVIE W/COU NT poikilocytos is SLIGHT Not Available [facility] [address] [place] [address] Dr [address], [place], [address], 02/23/2022 09:24:20 02/23/20 22 02/23/2022 MANUA L DIFFE RENTI AL REVIE W/COU NT fragmented cells FEW Not Available [facility] [address] [place] [address] Dr [address], [place], [address], 02/23/2022 09:24:20 02/23/20 22 02/23/2022 MANUA L DIFFE RENTI AL REVIE W/COU NT ovalocytes FEW Not Available [facility] ([facility]) [address] [place] [address] Dr [address], [place], [address], 02/23/2022 09:24:20 02/23/20 22 02/23/2022 MANUA L DIFFE RENTI AL REVIE W/COU NT platelet slide review NORMAL Plate let clump s noted . True plate let count may be highe r than repor esvin. Not Available [facility]) [address] [place] [address] Dr [address], [place], [address], 02/23/2022 09:24:20 02/23/20 22 02/23/2022 MANUA L DIFFE RENTI AL REVIE W/COU NT neutrophils- manual 49 % 41-77 Not Available [facility] [address] [place] [address] Dr [address], [place], [address], 02/23/2022 09:24:20 02/23/20 22 02/23/2022 MANUA L DIFFE RENTI AL REVIE W/COU NT lymphocytes manual 30 % 14-48 Not Available [facility]) [facility] [address], [place], [address], 02/23/2022 09:24:20 02/23/20 22 02/23/2022 MANUA L DIFFE RENTI AL REVIE W/COU NT monocytes manual 10 % 4-13 Not Available [facility] ([facility]) [address] [place] [address] Dr [address], [place], [address], 02/23/2022 09:24:20 02/23/20 22 02/23/2022 MANUA L DIFFE RENTI AL REVIE W/COU NT eosinophils manual 2 % 0-8 Not Available [facility] ([facility]) [address] [place] [address] Dr [address], [place], [address], 02/23/2022 09:24:20 02/23/20 22 02/23/2022 MANUA L DIFFE RENTI AL REVIE W/COU NT basophils manual 1 % 0-1 Not Available [facility] ([facility]) [address] [place] [address] Dr [address], [place], [address], 02/23/2022 09:24:20 02/23/20 22 02/23/2022 MANUA L DIFFE RENTI AL REVIE W/COU NT atypical lymphocytes 8 % 0-12 Not Available [facility] ([facility]) [address] [place] [address] Dr [address], [place], [address], 02/23/2022 09:24:20 02/23/20 22 02/23/2022 COMPR EHENS DARYN METAB OLIC PANEL (CMP) sodium 141 mEq/L 135-14 5 Not Available [facility]) [address] [place] [address] Dr [address], [place], [address], 02/23/2022 09:24:20 02/23/20 22 02/23/2022 COMPR EHENS DARYN METAB OLIC PANEL (CMP) potassium 4.3 mEq/L 3.5-5. 3 Not Available [facility]) [address] [place] [address] Dr [address], [place], [address], 02/23/2022 09:24:20 02/23/20 22 02/23/2022 COMPR EHENS DARYN METAB OLIC PANEL (CMP) chloride 104 mEq/L 97-108 Not Available [facility] ([facility]) [address] [place] [address] Dr Carter, [place], [address], 02/23/2022 09:24:20 02/23/20 22 02/23/2022 COMPR EHENS DARYN METAB OLIC PANEL (CMP) CO2 25 mEq/L 22-32 Not Available [facility] ([facility]) [address] [place] [address] Dr Carter, [place], [address], 02/23/2022 09:24:20 02/23/20 22 02/23/2022 COMPR EHENS DARYN METAB OLIC PANEL (CMP) glucose 94 mg/dL 65-99 Not Available [facility] ([facility]) [address] [place] [address] Dr Carter, [place], [address], 02/23/2022 09:24:20 02/23/20 22 02/23/2022 COMPR EHENS DARYN METAB OLIC PANEL (CMP) BUN 19 mg/dL 8-23 Not Available [facility] ([facility]) [address] [place] [address] Dr Carter, [place], [address], 02/23/2022 09:24:20 02/23/20 22 02/23/2022 COMPR EHENS DARYN METAB OLIC PANEL (CMP) creatinine 0.84 mg/dL 0.50-1 .00 Not Available [facility] ([facility]) [address] [place] [address] Dr Carter, [place], [address], 02/23/2022 09:24:20 02/23/20 22 02/23/2022 COMPR EHENS DARYN METAB OLIC PANEL (CMP) calcium 9.5 mg/dL 8.6-10 .4 Not Available [facility] ([facility]) [address] [place] [address] Dr Carter, [place], [address], 02/23/2022 09:24:20 02/23/20 22 02/23/2022 COMPR EHENS DARYN METAB OLIC PANEL (CMP) protein 6.8 g/dL 6.0-8. 3 Not Available [facility] ([facility]) [address] [place] [address] Dr Carter, [place], [address], 02/23/2022 09:24:20 02/23/20 22 02/23/2022 COMPR EHENS DARYN METAB OLIC PANEL (CMP) albumin 4.2 g/dL 3.5-5. 3 Not Available [facility] ([facility]) [address] [place] [address] Dr Carter, [place], [address], 02/23/2022 09:24:20 02/23/20 22 02/23/2022 COMPR EHENS DARYN METAB OLIC PANEL (CMP) alkaline phosphatase 64 IU/L 35-121 Not Available [facility] ([facility]) [address] [place] [address] Dr Carter, [place], [address], 02/23/2022 09:24:20 02/23/20 22 02/23/2022 COMPR EHENS DARYN METAB OLIC PANEL (CMP) ALT (SGPT) 21 IU/L <5-47 Not Available [facility] ([facility]) [address] [place] [address] Dr Carter, [place], [address], 02/23/2022 09:24:20 02/23/20 22 02/23/2022 COMPR EHENS DARYN METAB OLIC PANEL (CMP) AST (SGOT) 15 IU/L <5-40 Not Available [facility]) [address] [place] [address] Dr Carter, [place], [address], 02/23/2022 09:24:20 02/23/20 22 02/23/2022 COMPR EHENS DARYN METAB OLIC PANEL (CMP) bilirubin, total 0.2 mg/dL <0.2-1 .[address]) [address] [place] [address] Dr Carter, [place], [address], 02/23/2022 09:24:20 02/23/20 22 02/23/2022 COMPR EHENS DARYN METAB OLIC PANEL (CMP) A/G ratio 1.6 mg/dL 1.1-2. 5 Not Available [facility] [address] [place] [address] Dr Carter, [place], [address], 02/23/2022 09:24:20 02/23/20 22 02/23/2022 COMPR EHENS DARYN METAB OLIC PANEL (CMP) estimated GFR (black) 77 mL/mi n/1.7 3m2 >59 Not Available [facility] [address] [place] [address] Dr Carter, [place], [address], 02/23/2022 09:24:20 02/23/20 22 02/23/2022 COMPR EHENS [...] *In the absen ce of erika stevenson GFR categ ory G1 or G2 fulfi ll the crite tammy for CKD (Naomi ey Int Suppl 2013; 3.1-1 50) The [...] muscl e mass or diet. Not Available [facility] ([facility]) [address] [place] [address] Dr Carter, [place], [address], 02/23/2022 09:24:20 02/23/20 22 02/23/2022 PERCE NT SATUR ATION WITH IRON AND IBC iron 80 ug/dL 37-145 Not Available [facility] ([facility]) [address] [place] [address] Dr Carter, [place], [address], 02/23/2022 09:24:21 02/23/20 22 02/23/2022 PERCE NT SATUR ATION WITH IRON AND IBC iron binding cap 386 ug/dL 250-45 0 Not Available [facility] ([facility]) [address] [place] [address] Dr Carter, [place], [address], 02/23/2022 09:24:21 02/23/20 22 02/23/2022 PERCE NT SATUR ATION WITH IRON AND IBC percent saturation 21 % 15-50 Not Available [facility] ([facility]) [address] [place] [address] Dr Carter, [place], [address], 02/23/2022 09:24:21 02/23/20 22 02/23/2022 BELEM TIN ferritin 36.5 NG/mL 13.0-3 01.0 Not Available [facility] ([facility]) [address] [place] [address] Dr Carter, [place], [address], 02/23/2022 09:24:22 02/23/20 22 02/23/2022 HEMOG LOBIN A1C hemoglobin A1C 5.9 % <5.7 high The follo wing HbA1c range s recom sarah d by the Gisele man Diabe deni Assoc iatio n (ADA) may be used as an aid in the diagn osis of diabe deni brynoi tus. HA1c Sugge sted Diagn osis >=6.5 % Diabe tic 5.7% - 6.4% Pre-D iabet ic <5.7% Non-D iabet ic Not Available [facility] ([facility]) [address], [place], [address], 02/23/2022 09:24:23 02/23/20 22 02/23/2022 HEMOG LOBIN A1C estimated average glucose 123 mg/dL [place] ge Gluco se is calcu lated using the equat ion AG = (28.7 x HgbA1 c) - 46.7 based on the guide lines estab lishe d by the ADA. Not Available [facility] ([facility]) [address], [place], [address], 02/23/2022 09:24:23 10/10/19 21 09/21/2020 CT, angio gram, chest , w/wo contr ast No observ ation record ed. BARCODE Not Available 2020 08:28:47 10/10/19 21 09/24/2020 elect roscoe driscoll am No observ ation record ed. BARCODE Not Available 2020 08:28:47 07/08/19 MRI, lumba r spine , w/wo contr ast No observ ation record ed. [email or web address] Not Available 07/09 11:06:23 07/08/19 22 07/07/2021 MRI, lumba r spine , w/o contr ast No observ ation record ed. [email or web address] [address], [place], [address], 07/09/2021 10:53:42 04/20/20 22 04/20/2022 DEXA, axial skele ton + verte bral fract ure asses sment No observ ation record ed. [email or web address] [facility] (Administrati on) [address], [place], [address], 04/25/2022 14:32:46 Result Notes None recorded. Problems Name Problem SNOMED Code Status Onset Date Resolution Date Notes Provider Name and Address Organization Details Recorded Time Gastroesophag eal reflux disease without esophagitis 968500141 Active 2018 Not Available [facility] 14:09:48 Anxiety 96310872 Active 2018 Not Available [facility] 14:09:48 Diarrhea 97638844 Active 2018 Not Available [facility] 14:09:48 Hemorrhoids 03566540 Active 2018 Not Available [facility] 14:09:48 Hyperlipidemi a 54185836 Active 2018 Not Available [facility] 14:09:48 Hypertensive disorder 95694500 Active 2018 Not Available [facility] 14:09:48 Prolapsed lumbar intervertebra l disc 479668654 Active 2018 Not Available [facility] 14:09:48 Prediabetes 614273127 Active 2018 Not Available [facility] 14:09:48 Problem Notes None recorded. Procedures Surgical History Date Name Laterality Status Provider Name and Address Organization Details Recorded Time 01/14/20 21 Most Recent Mammogram completed FEDERICO TORRES [place] - [facility], [place] 03/08/2021 13:55:22 01/16/20 19 mammography completed Julia Harding [place] [facility], [place] 04/03/2019 13:18:13 Hysterectomy completed Atiya Dior MD [address] [facility] [address] [facility] [address], [place], [address], [facility] 04/03/2019 10:04:22 Appendectomy completed Atiya Dior MD [address] [place] [address] [address] [facility], [place], [address], [facility], [place] 04/03/2019 10:04:33 Tubal Ligation completed Atiya Dior MD [address] [place] [address] [address] [facility], [place], [address], [facility], [place] 04/03/2019 10:04:42 Tonsillectomy completed Atiya Dior MD [address] [place] [address] [address] [facility], [place], [address], [facility], [place] 04/03/2019 10:04:53 Cholecystectomy completed Atiya Dior MD [address] [place] [address], [place], [address], [facility], [place] 04/03/2019 10:05:00 Imaging Results None recorded. Procedure Notes None recorded. Medical Equipment None Reported. Allergies Allergen ID Allergen Name Allergen Category Reaction Reaction Severity Criticality Documentation Date Start Date Code Code System Note Provider Name and Address Organization Details Recorded Time 179 codeine medicatio n Not available Not available Not available 04/03/2019 2670 RxNorm Atiya quarles MD [address] [place] [address], [address], [facility], [place] 9 10:01:14 180 acetamino phen / oxycodone medicatio n Not available Not available Not available 04/03/2019 91198 3 RxNorm Atiya quarles MD [address] [place] [address], [address], [facility], [place] 9 10:01:20 Medications Name Sig Start [...] Available Not Available amlodipine 5 mg tablet Take 1 tablet every day by oral route for 90 days. 08/23 completed Not Available Not Available Not Available tramadol 50 mg tablet 11/06 completed [...] completed Not Available Not Available Not Available propranolol 10 mg tablet Take 1 tablet twice a day by oral route for 30 days. 11/06 completed Not Available Not Available Not [...] Syringe Ultra-Fine 1 mL 31 gauge x 5/16 TAKE 1 MISC [SPECIFY METHOD] EVERY DAY (ONCE A DAY) active Not Available Not Available No t Available Shingrix (PF) 50 mcg/0.5 mL intramuscul ar suspension, kit [facility] 10/09 completed Not Available Not Available Not Available turmeric active Not Available Not Avai lable Not Available Vitals Date Recorded Body temperature Body mass index (BMI) Body weight Provider Name and Address Organization Details Last Updated DateTime 08/23/2021 97.4 [degF] 40.3 kg/m2 61344.61 g SHARONA HIGGINS, DIOR-C [address], [place], [address], [place] [facility], [place] 08/23/2021 12:58:22 Date Recorded Body height Oxygen saturation Oxygen saturation in Arterial blood by Pulse oximetry Respiratory rate Heart rate Systolic blood pressure Diastolic blood pressure Provider Name and Address Organization Details Last Updated DateTime 2 154.94 cm 96 % 96 % 18 /min 103 /min 157 mm[Hg] 81 mm[Hg] FEDERICO TORRES [facility], [place] 2 13:21:21 Date Recorded Body height Heart rate Respiratory rate Oxygen saturation Oxygen saturation in Arterial blood by Pulse oximetry Body temperature Body mass index (BMI) Body weight Systolic blood pressure Diastolic blood pressure Provider Name and Address Organization Details Last Updated DateTime 1 154.94 cm 90 /min 16 /min 96 % 96 % 97.5 [degF] 39 kg/m2 23014.1 8 g 149 mm[Hg] 78 mm[Hg] Mary Bhagat [facility], [place] 1 12:33:24 Date Recorded Body height Body temperature Heart rate Respiratory rate Oxygen saturation Oxygen saturation in Arterial blood by Pulse oximetry Body mass index (BMI) Body weight Systolic blood pressure Diastolic blood pressure Provider Name and Address Organization Details Last Updated DateTime 1 154.94 cm 98 [degF] 101 /min 18 /min 98 % 98 % 38.1 kg/m2 71677.2 5 g 125 mm[Hg] 77 mm[Hg] Mary Bhagat [facility], [place] 1 11:58:26 Date Recorded Body height Body temperature Body mass index (BMI) Body weight Respiratory rate Oxygen saturation Oxygen saturation in Arterial blood by Pulse oximetry Heart rate Systolic blood pressure Diastolic blood pressure Provider Name and Address Organization Details Last Updated DateTime 2 154.94 cm 97.7 [degF] 40.2 kg/m2 64813.1 g 16 /min 96 % 96 % 93 /min 136 mm[Hg] 85 mm[Hg] CARMELLA STEINBERG [facility], [place] 2 12:41:15 Date Recorded Body height Body temperature Body mass index (BMI) Body weight Heart rate Respiratory rate Oxygen saturation Oxygen saturation in Arterial blood by Pulse oximetry Systolic blood pressure Diastolic blood pressure Provider Name and Address Organization Details Last Updated DateTime 1 154.94 cm 97.8 [degF] 40.8 kg/m2 40521.9 5 g 94 /min 16 /min 95 % 95 % 143 mm[Hg] 75 mm[Hg] FEDERICO TORRES [facility], [place] 1 13:51:43 Social History Question Answer Notes LastModified by Organizat ion Details LastModified Time Tobacco Smoking Status Former Smoker Atiya Dior MD [address] [facility] [address] [facility], [place], [address], [facility], [place] 04/03/2019 10:06:33 Do You Have An Advance Directive? Yes [email or web address] Information not available 04/03/2019 What Is Your Level Of Caffeine Consumption? Occasional [email or web address] Information not available 04/03/2019 What Type Of Diet Are You Following? REGULAR Information not available 03/08/2021 What Is The Highest Grade Or Level Of School You Have Completed Or The Highest Degree You Have Received? [id number] Information not available 03/08/2021 When Did You Quit Smoking? 16+yearssincel [email or web address] Information not available 03/08/2021 Live Alone Or With Others? Alone Information not available 04/03/2019 What Was The Date Of Your Most Recent Tobacco Screening? 03/08/2021 Information not available 03/08/2021 How Many Children Do You Have? 2 [email or web address] Information not available 04/03/2019 What Is Your Relationship Status? Information not available 03/08/2021 At What Age Did You Start Smoking Tobacco? 16 Information not available 03/08/2021 General Stress Level Low [email or web address] Information not available 04/03/2019 How Many Years Have You Smoked Tobacco? 36 Information not available 03/08/2021 Sex: Unknown Functional Status Question Answer Note LastModified by Organizat ion Details LastModified Time Do you use any illicit or recreational drugs? No Information not available 03/08/2021 What is your level of alcohol consumption? None [email or web address] Information not available 04/03/2019 Are you currently employed? No Information not available 03/08/2021 Are you able to walk? YESWOREST Information not available 03/08/2021 Are you able to care for yourself? Yes [email or web address] Information not available 04/03/2019 What is your occupation? retired [email or web address] Information not available 04/03/2019 What is your [...] split virus, quadrivalent, preservative 9 completed [place] 10/09/2020 12:31:23 zoster recombinant 0 completed Mary [place] 10/09/2020 12:31:23 Influenza, split virus, quadrivalent, preservative 0 completed Mary [place], [place] 10/09/2020 12:31:23 zoster recombinant 1 completed Mary [place], [place] 10/09/2020 12:31:23 COVID-19, mRNA, LNP-S, PF, 30 mcg/0.3 mL dose 1 completed FEDERICO [place], [place] 03/22/2021 08:30:16 Past Encounters Encounter ID Performer Location Encounter Start Date Encounter Closed Date Diagnosis/Indication Diagnosis SNOMED-CT Code Diagnosis ICD10 Code Diagnosis Note [id number] Atiya Dior MD Main Office [address] [place] [address] [place] [id number] 04/03/2019 13:02:56 04/03/2019 13:53:59 Gastroesophageal reflux disease without esophagitis 459619805 K21.9 pt having reflux every day and using tums advised pt to try pepcid - will give script avoid dietary triggers weight loss advised Prolapsed lumbar intervertebral disc 460379013 M51.[address] Joya - getting shots every 90 days. debating surgery. Screening for malignant neoplasm of colon 801206260 Z12.11 pt has always done colonoscop y that was normal. she lives alone and getting to and from a colonoscop y would be difficult. will order cologuard. Anxiety 07735692 F41.9 stable on current meds. will continue current care. Hypertensive disorder 38 576692 I10 BP goal < 150/90 continue current care low salt diet and daily exercise recommende d Monitor BP at home and Return to care if elevated above 150/90 >50% of the time. Hyperlipidemia 63279360 E78.5 stable on current meds. will continue current care - weight loss advised and check labs. Prediabetes 853144682 R7 3.03 last A1c was 6.3 advised lifestyle changes [id number] Sukhwinder Vazquez MD Main Office [address] [place] [id number] 1 07/04/2019 13:53:17 07/04/2019 15:09:10 Postural dizziness 522056237 R42 -suspect orthostati c in nature as only occurs when standing -BP normal however HR goes from 92 to 110 upon standing and positive dizziness -no dizziness/ nystagmus with head thrust -check BMP, hgb -stop HCTZ and continue olmsartan only -orthostat ic dizziness education given Tachycardia 5692537 R00. 0 suspect all orthostati c related, however resting still in 90's is normal for her. -standing >110 -EKG shows normal rhythm Low back pain 473228513 M54.5 Needs to have back surgery and requires clearance. -no exertional or non exertional chest pain -exercises 3 times week -Intermedi ate risk surgery with 4 mets , no clinical risk factors -BMP, cbc normal can proceed to surgery without further testing - medically optimized for surgery. -EKG shows NSR at rest Pre-surger y evaluation 814153706 Z01.818 pt needs back surgery clearance. labs and EKG performed and were WNL. medically optimized for surgery. [id number] Atiya Dior MD Main Office [address] [place] [id number] 1 07/25/2019 13:21:07 07/25/2019 13:47:25 Hypertensive disorder 68308251 I10 BP goal < 150/90 will increase olmesartan to 40mg daily to help with BP low salt diet and daily exercise recommende d Monitor BP at home and Return to care if elevated above 150/90 >50% of the time. [id number] BARBARA MACIAS FF Main Office [address] [place] [id number] 1 04/21/2020 11:49:49 04/21/2020 12:38:15 Anxiety 85973538 F41.9 Patient states that covid and social distancing from friends/fa elba has been rough for her lately. Patient states she is relying on family more and doing well on her current medication . Patient encouraged to continue to stay safe while interactin g with her neighbors and continue to stay in touch with family members. Refill sent to [facility]. Gastroesop hageal reflux disease without esophagitis 692397304 K21.9 Patient advised to avoid trigger foods, such as chocolate and pasta, and stay hydrated. Patient will start protonix today and monitor symptoms. Diarrhea 62739299 R19.7 Discussed the benefits of a daily probiotic. Patient will start taking this week. Encouraged patient to stay hydrated and maintain healthy diet while avoiding any trigger foods such as diary. [id number] Atiya Dior MD Main Office [address] [place] [id number] 1 10/09/2020 11:56:00 10/09/2020 12:56:01 Spinal stenosis of lumbar region 33569427 M48.061 notes, labs and imaging from hospital admission reviewed. S/p surgery and doing well post op Keep up f/u with surgeon natasha removed Hypertensive disorder 38 846712 I10 BP goal < 150/90 continue olmesartan 40mg daily will add amlodipine 2.5 - 5mg daily - SE of medication discussed low salt diet and daily exercise recommende d Monitor BP at home and Return to care if elevated above 150/90 >50% of the time. Sinus tachycardia 496984 01 R00.0 EKG from hospital admission and labs reviewed suspect multifacto rial - pain, anxiety will check stress test but doubt cardiac as cause. [id number] Atiya Dior MD FF Main Office [address] [id number] 11/06/2020 11:47:01 11/06/2020 12:32:19 Hypertensive disorder 03419703 I10 BP goal < 150/90 continue olmesartan 40mg daily will add amlodipine 2.5 - 5mg daily - SE of medication discussed low salt diet and daily exercise recommende d Monitor BP at home and Return to care if elevated above 150/90 >50% of the time. Anxiety 60254925 F41.9 stable on current meds. will continue current care. Gastroesop hageal reflux disease without esophagitis 119842937 K21.9 doing well on PPI avoid dietary triggers weight loss advised [id number] KARINA HIGUERA Main Office [address] [place] [id number] 1 03/08/2021 13:29:23 03/08/2021 14:30:48 Hypertensive disorder 72550327 I10 BP log reviewed - will stop amlodipine - has only been taking 1/2 of her 5 mg amlodipine pill daily BP goal < 150/90 low salt diet and daily exercise recommende d Monitor BP at home and Return to care if elevated above 150/90 >50% of the time. Anxiety 07930996 F41.9 doing well on celexa, will renew [id number] Atiya Dior MD FF Main Office [address] [place] [id number] 1 08/23/2021 12:28:27 08/23/2021 13:25:06 Seasonal allergic rhinitis 663316245 J30.2 medication - advised flonase and anti-hista mine, OTC cough syrup or honey supportive care otherwises uspect that dizziness may be coming from congestion related to allergies Hypertensive disorder 38 979067 I10 BP goal < 140/90 Currently at goal and doing well on meds with no SE. Will continue current care. Low salt diet and daily exercise encouraged Advised to monitor BP at home and to RTC if >140/90 > 50% of the time Hyperlipidemia 48593483 E78.5 will update fasting labs Fatigue 81672206 R53.83 will check thyroid labs Vitamin D deficiency 347 96689 E55.9 currently supplement ing vitamin d3 - will update labs Overactive urinary bladder 371044856 N32.81 pt reports trouble sleeping related to getting up to use the bathroom every 2 hours at night - will start oxybutynin ER 10 mg tablet [id number] Atiya Dior MD Main Office [facility] [address] [place] [id number] 1 02/22/2022 12:32:36 02/22/2022 13:23:59 Anxiety 83920646 F41.9 doing well on celexa, will renew Hypertensive disorder 38 983906 I10 BP goal < 140/90 Currently at goal and doing well on meds with no SE. Will continue current care. Low salt diet and daily exercise encouraged Advised to monitor BP at home and to RTC if >140/90 > 50% of the time Gastroesop hageal reflux disease without esophagitis 705654234 K21.9 stable on PPI. avoid dietary triggers Iron defic iency anemia 25635889 D50.9 last H/H was 9.6she is taking iron dailywill recheck labsmay need colonoscop y - denies bleeding Impaired g lucose tolerance 9434317 R73.02 BS was 131 on last set of labswill check A1c Vertigo 888370955 R42 prn use of meclizinew arning signs reviewed - ED if they present Menopausal and postmenopausal disorders 680100977 N95.9 Health Concerns Section Related Observation LastModified by Organization Detai ls LastModified Time None Recorded Concern Status LastModified by Organization Details LastModified Time None Recorded Advance Directives Directive Y: Payers Insurance Date Sequence Insurance Name Policy Number Policy [place] Covered Member ID [place] Member ID Guarantor Name 06/29/2022 1 [place] COURTNEY Abebein [id number] Yahaira Nima 04/15/2022 3 [place] [employer] (MEDICARE SUPPLEMENT) [id number] [place] N[place] [id number] [place] 04/15/2022 3 [place] [id number] Yah[place]a Nima [id number] [place] 06/29/2022 2 [place] [id number] [place] N[place] [id number] [place] N[place] Notes Date Note Type Note Provider [...] is better now. Atiya Dior MD [id number] [facility], [place], [address], [facility], [place] 10/12/2020 10:55:40 11/06/2020 text/html Follow up, [...] not try propranolol. Atiya Dior MD [address] [facility], [place], [id number], [facility], [place] 11/10/2020 17:09:55 03/08/2021 text/html Here for f/u on blood pressure. Reports that even taking half of the 5 mg amlodipine tablet she is feeling too dizzy and fatigued. TOY HIGUERAC [address], [place], [address], [facility], [place] 03/08/2021 19:35:15 08/23/2021 text/html Here to follow u p regarding blood pressure. She has brought her log with her today. BPs are averaging 120s/60s. Her heart rate is usually elevated in the 90s-100s. Has had some dizziness but reports she thinks its allergy related. Pt does have h/o vertigo. SHARONA HIGGINS NP-C [address], [place], [address], [facility] 08/23/2021 13:48:40 02/22/2022 text/html She has been [...] up in the am. Atiya Dior MD [id number], [place], [address], [facility] 02/25/2022 05:13:33 OBGyn Episode No OBEpisode recorded.
[2024-11-08 16:08] LABS: MANUAL DIFF FLAG NO
[2024-11-08 16:17] LABS: Basophils Percent Auto 0.5 % (0-2); Eosinophils Absolute Auto 0.3 X10*3/uL (0.0-0.4); Eosinophils Percent Auto 3.3 % (0-4); Hematocrit 26.8 % (37.0-47.0); Hemoglobin 7.4 g/dl (12.0-16.0); Imm Gran Abs Auto 0.04 X10*3/uL (0.00-0.03); Imm Gran Pct Auto 0.5 % (0.0-0.4); Lymphocytes Percent Auto 24.7 % (20-40); Mean Corpuscular HGB Conc 27.6 g/dl (31.0-35.0); Mean Corpuscular Hemoglobin 19.2 pg (27.0-33.0); Mean Corpuscular Volume 69.4 fL (80.0-98.0); Mean Platelet Volume 10.7 fL (9.4-12.3); Monocytes Absolute Auto 0.8 X10*3/uL (0.1-1.2); Monocytes Percent Auto 10.1 % (2-11); Neutrophils Absolute Auto 4.8 x10*3/uL (2.0-8.3); Neutrophils Percent Auto 60.9 % (45-73); Platelet Count 364 X10*3/uL (160-400); Red Blood Count 3.86 X10*6/uL (4.20-5.50); Red Cell Distribution Width 16.4 % (11.0-16.0); White Blood Count 7.9 X10*3/uL (4.8-10.8)
== END 2024-11-08 14:34 | disposition home or self-care (01) ==
LOC: HO.HMGCLDS 14:33
DX: I63.9 Cerebral infarction, unspecified (principal); D64.9 Anemia, unspecified
CPT/HCPCS: 36415; 85025

== ENCOUNTER 2024-11-08 18:01 | Inpatient (IN) | payer MEDICARE, SELFPAY ==
[2024-11-08 18:06] VITALS: BP 144/51; PULSE 98; RESP 18; TEMP 36.9; O2SAT 95; BMI 37.4
--- NOTE | 2024-11-08 18:10 | ED.RECABL ---
HPI - Recheck/Abnormal Lab/Rx General Chief Complaint: Recheck/Abnormal Lab/Rx Stated Complaint: PCP sent over for blood transfusion Time Seen by Provider: 11/08/24 21:16 Source: patient Mode of arrival: ambulatory Limitations: no limitations History of Present Illness ED Provider: HPI narrative: Patient is 79 years old with history of dyslipidemia type 2 diabetes anxiety depression , recent TIA on 10/02/2024 started on Eliquis comes here noticed patient's hemoglobin is low 7.4/26.8 patient has been anemic for last 6 months hemoglobin is around 10 patient has been feeling weak and short of breath on ambulation denies any black stool no abdominal pain patient does have history of IBS no history of ulcer Related Data Home Medications ?Medication ?Instructions ?Recorded ?Confirmed alpha lipoic acid 100 mg capsule 100 mg PO DAILY 11/02/22 10/25/24 ascorbate calcium (vitamin C) 500 500 mg PO DAILY 11/02/22 10/25/24 mg tablet calcium citrate 630 mg PO DAILY 11/02/22 10/25/24 cholecalciferol (vitamin D3) 25 25 mcg PO DAILY 11/02/22 10/25/24 mcg (1,000 unit) capsule multivitamin 1 tab PO DAILY 11/02/22 10/25/24 methylcellulose (laxative) 500 mg 500 mg PO DAILY 08/07/24 10/25/24 tablet (Citrucel) pantoprazole 20 mg tablet,delayed 20 mg PO DAILY@0630 08/07/24 10/25/24 release Previous Rx's ?Medication ?Instructions ?Recorded apixaban 5 mg tablet (Eliquis) 5 mg PO BID 90 days #180 tabs 10/03/24 labetalol 100 mg tablet 100 mg PO BID 90 days #180 tabs 10/03/24 citalopram 20 mg tablet 20 mg PO BEDTIME #90 tabs 10/15/24 rosuvastatin 5 mg tablet 5 mg PO DAILY #30 tabs 10/24/24 cetirizine 10 mg tablet (All Day 10 mg PO DAILY #90 tabs 10/25/24 Allergy (cetirizine)) empagliflozin 10 mg tablet 10 mg PO DAILY #90 tabs 10/25/24 (Jardiance) Allergies Allergy/AdvReac Type Severity Reaction Status Date / Time codeine AdvReac Intermediate seizure Verified 11/08/24 18:08 oxycodone (From Percocet) AdvReac Intermediate Nausea and Verified 11/08/24 18:08 Vomiting Review of Systems Review of Systems: Yes all other systems are reviewed and are negative [facility] Past Medical History Medical History IBS (irritable bowel syndrome) Allergies Urticaria Dyslipidemia Type 2 diabetes mellitus without complication, without long-term current use of insulin Hearing impairment History of adenomatous polyp of colon Lumbar back pain with radiculopathy affecting left lower extremity Obesity (BMI 30-39.9) Paget's disease of the bone Osteopenia GERD (gastroesophageal reflux disease) Impaired fasting glucose Anxiety and depression Essential hypertension Surgical History History of back surgery Hx of LASIK Hx of left cataract extraction Hx of tubal ligation H/O colonoscopy History of partial hysterectomy History of appendectomy History of cholecystectomy H/O breast surgery History of lumbar discectomy Social History Social History Household Members: Family Housing: House Are you a primary director of career resources to a significant other at home: No Do you presently have visiting nurse or other home services: No Alcohol intake: never Patient Tobacco Use Status: Former Tobacco user e-Cigarette/Vaping Use: Never Used Second Hand Smoke Exposure: Yes Advance Directives: Yes Advance Directives on File: Yes Advance Directives Date on File: 11/02/22 service: No Current occupational status: retired Cognitive needs: No Hearing needs: No Vision needs: Yes (Reading glasses) Physical Exam Vital Signs: Vital Signs: Last Vital Signs Temp 98 F 11/09/24 01:43 Pulse 80 11/09/24 01:43 Resp 16 11/09/24 01:43 BP 166/71 H 11/09/24 01:43 Pulse Ox 95 11/08/24 22:05 O2 Del Method Room Air 11/08/24 22:05 BMI result Body Mass Index 37.4 Appearance: Alert. Oriented X3. No acute distress. Eyes: PERRLA, No Nystagmus pallor++ ENT: Pharynx normal. Oral Mucosa moist Neck: Normal inspection. Neck supple. CVS: Normal heart rate and rhythm. Pulses normal. Respiratory: No respiratory distress. Equal air entry bilateral, no wheezing/rales/rhonchi Abdomen: Soft and nontender. Bowel sounds are present, no mass palpable, no CVA tenderness Skin: Skin warm and dry. Normal skin color. Normal skin turgor. Extremities: No lower extremity edema. No calf tenderness Neuro: Oriented X 3. No motor deficit. No sensory deficit.No cerebellar signs , cranial nerves II-XII intact Course Course Course Narrative: This is a Rapid Medical Examination (RME) performed by Marilyn Lopez PA-C in triage. Full HPI, ROS, assessment and treatment plan per primary provider in the Main ED. 79 yo female with history of HTN, DM2, anxiety/depression, mild anemia as of May 2024 presenting to the ER for a blood transfusion when her outpatient lab workup today showed H/H 7.4/26.8 from 9.2/30.5. She has been tired and fatigued. Denies chest pain or SOB. No bloody or black stools. Last colonoscopy was 2022. She has history of a TIA in September and is currently on a heart monitor. She is on Eliquis for her TIA. Plan: type and screen and transfuse, guaic stools Medications Administered Discontinued Medications Generic Name Dose Route Start Last Admin Trade Name Freq PRN Reason Stop Dose Admin Pantoprazole Sodium 40 mg 11/09/24 00:27 11/09/24 02:21 Pantoprazole Sodium 40 Mg/10 Ml Vial IVPUSH 11/09/24 00:28 40 mg ONCE ONE Administration Medical Decision Making Medical Decision Making [facility] Narrative: Patient's symptomatic anemia on Eliquis guaiac test positive for blood but no melena was given 1 unit of blood in the ER will admit patient for symptomatic anemia likely from chronic blood loss Differential Diagnosis Differential Diagnoses: The differential diagnosis associated with the presentation includes Admission/Observation Consideration of admission/observation: Escalation of care including admission/observation considered Consult Healthcare Provider Management of the patient was discussed with: Hospitalist Lab Data [facility] Lab Attestation statement: I reviewed the patient's lab results. 11/08/24 18:26 11/08/24 18:26 Labs: Lab Results 11/08/24 11/08/24 Range/Units 18:26 22:35 WBC 8.5 (4.8-10.8) X10*3/uL RBC 3.78 L (4.20-5.50) X10*6/uL Hgb 7.4 L (12.0-16.0) g/dl Hct 25.3 L (37.0-47.0) % MCV 66.9 L (80.0-98.0) fL MCH 19.6 L (27.0-33.0) pg MCHC 29.2 L (31.0-35.0) g/dl RDW 16.4 H (11.0-16.0) % Plt Count 356 (160-400) X10*3/uL MPV 9.9 (9.4-12.3) fL Immature Gran % (Auto) 0.2 (0.0-0.4) % Neut % (Auto) 60.8 (45-73) % Lymph % (Auto) 25.6 (20-40) % Humphreys % (Auto) 10.0 (2-11) % Eos % (Auto) 2.9 (0-4) % Baso % (Auto) 0.5 (0-2) % Lymph # (Auto) 2.2 (1.2-4.9) X10*3/uL Humphreys # (Auto) 0.9 (0.1-1.2) X10*3/uL Eos # (Auto) 0.3 (0.0-0.4) X10*3/uL Baso # (Auto) 0.0 (0.0-0.2) X10*3/uL Abs Immat Gran (auto) 0.02 (0.00-0.03) X10*3/uL Absolute Neuts (auto) 5.2 (2.0-8.3) x10*3/uL Absolute Nucleated RBC 0.000 (0.0-0.012) X10*3/uL Nucleated RBC % (auto) 0.0 (0.0-0.2) /100WBC Sodium 140 (135-145) mmol/L Potassium 4.0 (3.3-5.1) mmol/L Chloride 110 H (96-108) mmol/L Carbon Dioxide 22 (22-29) mmol/L Anion Gap 12 (12-20) BUN 14 (9-16) mg/dL Creatinine 0.85 (0.5-1.4) mg/dL Estim Creat Clear Calc 53.8 Estimated GFR > 60 Random Glucose 118 H (60-115) mg/dL Calcium 9.1 (8.4-10.2) mg/dL Magnesium 2.0 (1.6-2.6) mg/dL Total Bilirubin 0.4 (0.0-1.0) mg/dL Direct Bilirubin 0.2 (0.0-0.5) mg/dL AST 17 (5-31) U/L ALT 16 (0-31) U/L Alkaline Phosphatase 74 (39-117) U/L Total Protein 6.7 (6.5-8.0) g/dL Albumin 4.0 (3.5-5.0) g/dL Stool Occult Blood POSITIVE (NEGATIVE) Blood Type A Negative Antibody Screen NEGATIVE Crossmatch See Detail Discharge Plan Discharge Clinical Impression: GI (gastrointestinal bleed) Anemia Qualifiers: Anemia type: unspecified type Qualified Code(s): D64.9 - Anemia, unspecified Patient Disposition: Admitted As Inpatient
[2024-11-08 18:36] LABS: MANUAL DIFF FLAG NO
[2024-11-08 18:38] LABS: Basophils Percent Auto 0.5 % (0-2); Eosinophils Absolute Auto 0.3 X10*3/uL (0.0-0.4); Eosinophils Percent Auto 2.9 % (0-4); Hematocrit 25.3 % (37.0-47.0); Hemoglobin 7.4 g/dl (12.0-16.0); Imm Gran Abs Auto 0.02 X10*3/uL (0.00-0.03); Imm Gran Pct Auto 0.2 % (0.0-0.4); Lymphocytes Absolute Auto 2.2 X10*3/uL (1.2-4.9); Lymphocytes Percent Auto 25.6 % (20-40); Mean Corpuscular HGB Conc 29.2 g/dl (31.0-35.0); Mean Corpuscular Hemoglobin 19.6 pg (27.0-33.0); Mean Corpuscular Volume 66.9 fL (80.0-98.0); Mean Platelet Volume 9.9 fL (9.4-12.3); Monocytes Absolute Auto 0.9 X10*3/uL (0.1-1.2); Neutrophils Absolute Auto 5.2 x10*3/uL (2.0-8.3); Neutrophils Percent Auto 60.8 % (45-73); Platelet Count 356 X10*3/uL (160-400); Red Blood Count 3.78 X10*6/uL (4.20-5.50); Red Cell Distribution Width 16.4 % (11.0-16.0); White Blood Count 8.5 X10*3/uL (4.8-10.8)
[2024-11-08 18:51] LABS: Alanine Aminotransferase 16 U/L (0-31); Alkaline Phosphatase 74 U/L (39-117); Anion Gap 12 (12-20); Aspartate Amino Transferase 17 U/L (5-31); Bilirubin Direct 0.2 mg/dL (0.0-0.5); Bilirubin Total 0.4 mg/dL (0.0-1.0); Blood Urea Nitrogen 14 mg/dL (9-16); Calcium 9.1 mg/dL (8.4-10.2); Carbon Dioxide 22 mmol/L (22-29); Chloride 110 mmol/L (96-108); Creatinine Clr Calc Pharmacy 53.8; Estimated Glomerular Filt Rate > 60; Glucose Random 118 mg/dL (60-115); Sodium 140 mmol/L (135-145); Total Protein 6.7 g/dL (6.5-8.0)
[2024-11-08 20:37] VITALS: BP 159/57; PULSE 100; RESP 18; TEMP 36.6; O2SAT 95
[2024-11-08 22:05] VITALS: BP 167/73; PULSE 100; RESP 16; O2SAT 95
[2024-11-08 22:43] LABS: OBS Int Ctl Valid YES; OBS1 POSITIVE (NEGATIVE)
[2024-11-08 23:27] VITALS: BP 156/54; PULSE 87; RESP 18; TEMP 36.9
[2024-11-08 23:42] VITALS: BP 162/69; PULSE 78; RESP 18; TEMP 36.8
[2024-11-09] VITALS (8 sets, daily range): BP systolic 160–190; BP diastolic 55–90; PULSE 80–103; RESP 14–20; TEMP 36.4–37; O2SAT 92–95
--- NOTE | 2024-11-09 02:01 | PC.NURSE ---
per lab no A- blood available. MD Curry notified
[2024-11-09] MEDS: Pantoprazole Sodium 40 MG/10 ML VIAL IVPUSH ×2 (02:21→07:35)
--- NOTE | 2024-11-09 03:42 | PC.NURSE ---
blood bank contacted. explained that either can authorize A+ blood be given or we wait until 0700 for filter press supervisor to assess next availability/release of correct blood type. MD Cali was notified of these two options. MD Cali states to this RN that we can wait until morning. pt is stable, alert, oriented, ambulating to bathroom without assist/symptoms, denies pain or discomfort, sitting in chair. call howell in reach
--- NOTE | 2024-11-09 04:00 | PC.NURSE ---
blood bank contacted. explained that either can authorize A+ blood be given or we wait until 0700 for form building supervisor to assess next availability/release of correct blood type. MD Cali was notified of these two options. MD Cali states to this RN that we can wait until morning. pt is stable, alert, oriented, ambulating to bathroom with standby level of assist/no symptoms, denies pain or discomfort, sitting in chair. call howell in reach
--- NOTE | 2024-11-09 05:08 | PM.IMHP ---
History of Present Illness Date of Service: 11/09/24 Chief Complaint: Anemia 79-year-old female with a past medical history of history, HLD, dm, chronic low back pain, obesity, osteopenia, GERD, recent CVA diagnosed in September 2024-discharged on Eliquis while investigating for AFib; presented to the hospital today with a chief complaint of anemia. Patient mentioned that she went to her PCP's office and noted to have hemoglobin of 7.4 and subsequently asked her to go to the ER for further evaluation. Patient denies any signs of bleeding. Mentioned that she was recently started on Eliquis which he has been taking and last dose was on 11/08/2024. Patient reports mild shortness of breath on exertion. Denies any chest pain or palpitations. Denies any fever chills cough or sputum production. Denies any urinary symptoms. Review of all other systems is negative except mentioned above ER course: Per ER team, patient's exam was benign; hemoglobin of 7.4. Ordered for 1 unit of PRBC-not available but the blood bank said they will find the blood in the morning. [facility] Medical History IBS (irritable bowel syndrome) Allergies Urticaria Dyslipidemia Type 2 diabetes mellitus without complication, without long-term current use of insulin Hearing impairment History of adenomatous polyp of colon Lumbar back pain with radiculopathy affecting left lower extremity Obesity (BMI 30-39.9) Paget's disease of the bone Osteopenia GERD (gastroesophageal reflux disease) Impaired fasting glucose Anxiety and depression Essential hypertension Surgical History History of back surgery Hx of LASIK Hx of left cataract extraction Hx of tubal ligation H/O colonoscopy History of partial hysterectomy History of appendectomy History of cholecystectomy H/O breast surgery History of lumbar discectomy Social History Household Members: Family Housing: House Are you a primary childcare center director to a significant other at home: No Do you presently have visiting nurse or other home services: No Alcohol intake: never Patient Tobacco Use Status: Former Tobacco user e-Cigarette/Vaping Use: Never Used Second Hand Smoke Exposure: Yes Advance Directives: Yes Advance Directives on File: Yes Advance Directives Date on File: 11/02/22 service: No Current occupational status: retired Cognitive needs: No Hearing needs: No Vision needs: Yes (Reading glasses) Meds Allergies Allergy/AdvReac Type Severity Reaction Status Date / Time codeine AdvReac Intermediate seizure Verified 11/08/24 18:08 oxycodone (From Percocet) AdvReac Intermediate Nausea and Verified 11/08/24 18:08 Vomiting Active Medications: Current Medications Acetaminophen (Acetaminophen 325 Mg Tablet) 650 mg PO Q6H PRN PRN Reason: Pain, Mild 1-3,fever,headache Calcium Carbonate (Calcium Carbonate 750 Mg Tab.Chew) 750 mg PO Q4H PRN PRN Reason: Heartburn Dextrose (Dextrose 50 % 25 Gm/50 Ml Syringe) 25 gm IVPUSH Q15M PRN; Protocol PRN Reason: per Hypoglycemia Standing Ord. Glucose (Glucose Gel 15 Gm Gel..Gram.) 15 gm PO Q15M PRN; Protocol PRN Reason: per Hypoglycemia Standing Ord. Insulin Human Lispro (Insulin Lispro 100 Unit/Ml 3 Ml Vial) 0 [facility]; Protocol Magnesium Hydroxide (Milk Of Magnesia 30 Ml Oral.Susp) 30 ml PO DAILY PRN PRN Reason: Constipation Melatonin (Melatonin 3 Mg Tablet) 6 mg PO BEDTIME PRN PRN Reason: Insomnia Pantoprazole Sodium (Pantoprazole Sodium 40 Mg/10 Ml Vial) 40 mg IVPUSH DAILY@0630 [facility] Sodium Chloride (0.9 % Sodium Chloride Flush 3 Ml Syringe) 3 ml IVFLUSH [facility] Home Medications ?Medication ?Instructions ?Recorded ?Confirmed ?Last Taken ?Type alpha lipoic acid 100 mg capsule 100 mg PO DAILY 11/02/22 10/25/24 10/02/24 History ascorbate calcium (vitamin C) 500 500 mg PO DAILY 11/02/22 10/25/24 10/02/24 History mg tablet calcium citrate 630 mg PO DAILY 11/02/22 10/25/24 10/02/24 History cholecalciferol (vitamin D3) 25 25 mcg PO DAILY 11/02/22 10/25/24 10/02/24 History mcg (1,000 unit) capsule multivitamin 1 tab PO DAILY 11/02/22 10/25/24 10/02/24 History methylcellulose (laxative) 500 mg 500 mg PO DAILY 08/07/24 10/25/24 10/02/24 History tablet (Citrucel) pantoprazole 20 mg tablet,delayed 20 mg PO DAILY@0630 08/07/24 10/25/24 10/02/24 History release Physical Exam Vital Signs and Narrative: Vital Signs: Last Vital Signs Temp 98 F 11/09/24 01:43 Pulse 80 11/09/24 01:43 Resp 16 11/09/24 01:43 BP 166/71 H 11/09/24 01:43 Pulse Ox 95 11/08/24 22:05 O2 Del Method Room Air 11/08/24 22:05 BMI result Body Mass Index 37.4 Gen: Appears be in no acute distress HEENT: NCAT, Moist mucosa. Pulmonary: Vesicular breath sounds, fair air entry CVS: Normal S1-S2 Abdomen: BS+, Soft, Nontender Extremities: Warm well perfused Neuro: Alert and awake. Results Labs 11/08/24 18:26 11/08/24 18:26 Labs: Laboratory Results - last 24 hr 11/08/24 11/08/24 18:26 22:35 MCV 66.9 L MCH 19.6 L MCHC 29.2 L RDW 16.4 H Plt Count 356 MPV 9.9 Immature Gran % (Auto) 0.2 Neut % (Auto) 60.8 Lymph % (Auto) 25.6 Sherman % (Auto) 10.0 Eos % (Auto) 2.9 Baso % (Auto) 0.5 Lymph # (Auto) 2.2 Sherman # (Auto) 0.9 Eos # (Auto) 0.3 Baso # (Auto) 0.0 Abs Immat Gran (auto) 0.02 Absolute Neuts (auto) 5.2 Absolute Nucleated RBC 0.000 Nucleated RBC % (auto) 0.0 Anion Gap 12 Estim Creat Clear Calc 53.8 Estimated GFR > 60 Random Glucose 118 H Calcium 9.1 Magnesium 2.0 Total Bilirubin 0.4 Direct Bilirubin 0.2 AST 17 ALT 16 Alkaline Phosphatase 74 Total Protein 6.7 Albumin 4.0 Stool Occult Blood POSITIVE Blood Type A Negative Antibody Screen NEGATIVE Crossmatch See Detail Assessment and Plan (1) Anemia: Qualifiers: Anemia type: unspecified type Qualified Code(s): D64.9 - Anemia, unspecified Status: Acute Plan 79-year-old female with a past medical history of history, HLD, dm, chronic low back pain, obesity, osteopenia, GERD, recent CVA diagnosed in September 2024-discharged on Eliquis while investigating for AFib; presented to the hospital today with a chief complaint of anemia. Anemia: Patient baseline hemoglobin around 10 Hemoglobin on presentation was 7.4 Two guaiac was positive Patient has mild dyspnea on exertion Patient was recently started on Eliquis in September 2024 after diagnosed with CVA/carotid stenosis-> last dose was on 11/08/2024 a.m. Serial H&H Patient being ordered for 1 unit of PRBC-blood bank working to find the blood for the patient GI consult NPO Gentle IV fluids CVA/PICA stenosis: Patient was started on Eliquis in September for 3-6 months while being investigated for AFib. Will hold Eliquis until cleared by Gastroenterology Diabetes: Insulin sliding scale DVT prophylaxis: SCD boots Code status: Full code Quality Stroke Does the patient have a stroke diagnosis?: Yes Reason for No Anti-thrombotic by Day Two: N/A - Med Ordered VTE Prior VTE?: No VTE Risk Level:: Medical - moderate - high VTE Device Contraindication: Treatment Not Indicated VTE Drug Contraindication: N/A - Med Ordered
[2024-11-09 06:36] LABS: MANUAL DIFF FLAG NO
[2024-11-09 06:45] LABS: Basophils Absolute Auto 0.1 X10*3/uL (0.0-0.2); Basophils Percent Auto 0.6 % (0-2); Eosinophils Absolute Auto 0.2 X10*3/uL (0.0-0.4); Eosinophils Percent Auto 2.9 % (0-4); Hematocrit 29.6 % (37.0-47.0); Hemoglobin 8.6 g/dl (12.0-16.0); Imm Gran Abs Auto 0.04 X10*3/uL (0.00-0.03); Imm Gran Pct Auto 0.5 % (0.0-0.4); Lymphocytes Absolute Auto 1.9 X10*3/uL (1.2-4.9); Mean Corpuscular HGB Conc 29.1 g/dl (31.0-35.0); Mean Corpuscular Hemoglobin 20.5 pg (27.0-33.0); Mean Corpuscular Volume 70.5 fL (80.0-98.0); Mean Platelet Volume 10.4 fL (9.4-12.3); Monocytes Absolute Auto 0.9 X10*3/uL (0.1-1.2); Monocytes Percent Auto 10.9 % (2-11); Neutrophils Absolute Auto 5.1 x10*3/uL (2.0-8.3); Neutrophils Percent Auto 62.1 % (45-73); Platelet Count 353 X10*3/uL (160-400); Red Cell Distribution Width 18.7 % (11.0-16.0); White Blood Count 8.2 X10*3/uL (4.8-10.8)
[2024-11-09 06:52] LABS: Iron 109 mcg/dL (30-160); Percent Iron Saturation 21 % (15-50); Total Iron Binding Capacity 510 mcg/dL (228-428); Unsaturated Iron Binding 401 ug/dL
[2024-11-09 06:56] LABS: Alanine Aminotransferase 15 U/L (0-31); Albumin Level 4.3 g/dL (3.5-5.0); Alkaline Phosphatase 75 U/L (39-117); Anion Gap 13 (12-20); Aspartate Amino Transferase 26 U/L (5-31); Bilirubin Total 1.4 mg/dL (0.0-1.0); Blood Urea Nitrogen 14 mg/dL (9-16); Calcium 9.4 mg/dL (8.4-10.2); Carbon Dioxide 24 mmol/L (22-29); Chloride 108 mmol/L (96-108); Creatinine Clr Calc Pharmacy 59.4; Estimated Glomerular Filt Rate > 60; Glucose Random 135 mg/dL (60-115); Potassium 4.1 mmol/L (3.3-5.1); Sodium 141 mmol/L (135-145)
[2024-11-09 07:28] LABS: Glucose, Whole Blood 173 mg/dL (60-115)
[2024-11-09 07:32] LABS: Folate 14.6 ng/mL (> or = 4.0); Vitamin B12 489 pg/mL (200-900)
[2024-11-09] MEDS: Insulin Lispro 100 UNIT/ML 3 ML VIAL SUBCUT (07:35)
--- NOTE | 2024-11-09 07:51 | PC.NURSE ---
patient requesting to leave/dc, inpatient provider made aware.
--- NOTE | 2024-11-09 08:27 | PHA.MEDREC ---
Addendum entered by Dayanara Mead [facility] 11/09/24 09:08: reviewed Original Note: Pharmacy Consult ? Medication Reconciliation Pharmacy has completed the medication reconciliation. Spoke with patient to confirm. She takes one tablet daily of Citrucel instead of 2. She takes pantoprazole at dinner time. She confirmed she is no longer taking olmesartan and atorvastatin. She only took labetalol, Jardiance, Eliquis, and Citrucel yesterday.
--- NOTE | 2024-11-09 08:28 | PC.NURSE ---
assumed care of patient at 0700, patient is awake, alert and oriented. patient medicated per MAR. VSS at this time. patient ate partial breakfast. patient requesting to leave because she has not yt been given second bag of blood product she was told she was going to get. patient informed that blood bank is working on getting her the second matching unit, inpatient provider Lamar RADER aware of patients desires. informed patient that provider will be down to speak to her, patient states it better be quick . this RN is attempting to keep patient comfortable at this time.
--- NOTE | 2024-11-09 10:13 | PC.NURSE ---
patient is agreeable to staying after consult with inpatient provider. patient given hospital bed to assist for comfort while in ED. patient ambulates with steady gait with walker.
--- NOTE | 2024-11-09 11:31 | PM.EVENT ---
Event Note Date of Service: 11/09/24 Event Note: GI consult dictated She will need eventual EGD for eval of anemia and heme pos stool She wants to do this as an outpatient which is reasonable as she has no active bleeding. Colonoscopy in 02/11 showed an adenoma,so it may not need to be repeated. She may need capsule endoscopy at some point. Ok to restart Eliquis and go home on a ppi until she has a date scheduled for EGD. Time Spent With Patient Time: Total time managing care of this patient today ____ minutes.
--- NOTE | 2024-11-09 11:45 | CONS_ITS ---
DATE OF SERVICE: 11/09/2024 REFERRING PHYSICIAN: Dr. Cali REASON FOR CONSULTATION: Anemia and Hemoccult-positive stools. HISTORY OF PRESENT ILLNESS: The patient is a pleasant 79-year-old woman who was admitted to the hospital after presenting to the emergency room at the request of her primary care provider because of significant anemia. She has had a recent TIA in September and has been started on Eliquis and is being evaluated with a heart monitor. She has had some shortness of breath since this time and blood work done through her primary care provider's office on November 08 showed a hematocrit of 26.8. She was referred to the emergency department. MCV was low at 69.4. Iron studies were done showing a saturation of 21%. She was transfused one unit of packed red blood cells and is scheduled to get a 2nd unit. On examination, she was evaluated with a rectal exam. This showed Hemoccult-positive stools. She denies any bright red blood per rectum or hematochezia. She has had no previous GI bleeding. She does not take NSAIDs and has no complaints of upper GI symptoms. She previously was evaluated with colonoscopy in January 2023 because of a positive Cologuard result. This showed a tubular adenoma. PAST MEDICAL HISTORY: 1. Colon polyps as above with colonoscopy and history of irritable bowel syndrome. 2. Hyperlipidemia. 3. Diabetes mellitus type 2. 4. Hearing impaired. 5. Paget disease with osteopenia. 6. Gastroesophageal reflux disease. 7. Anxiety/depression. 8. Hypertension. CURRENT MEDICATIONS: Her current medication list is reviewed in the chart. ALLERGIES: CODEINE AND OXYCODONE. PAST SURGICAL HISTORY: Includes back surgery, LASIK, cataract surgery, tubal ligation, partial hysterectomy, appendectomy, cholecystectomy, breast surgery. FAMILY HISTORY: This is negative for colorectal cancer. SOCIAL HISTORY: There is no current tobacco, alcohol, or substance abuse. REVIEW OF SYSTEMS: SKIN: No pruritus. HEENT: Negative. CARDIOPULMONARY: She denies shortness of breath or chest pain. GASTROINTESTINAL: As above. GENITOURINARY: Negative. NEUROPSYCHIATRIC: Negative. PHYSICAL EXAMINATION: Shows a pleasant elderly female, sitting in a chair. VITAL SIGNS: Reviewed in the emergency department. She is mildly tachycardic intermittently. Skin is anicteric. HEENT: Shows no scleral icterus. NECK: Without lymphadenopathy or thyromegaly. LUNGS: Clear. HEART: Shows a regular rate and rhythm. There is a heart monitor on her left upper chest. ABDOMEN: Soft without focal masses or tenderness. Bowel sounds are present. No organomegaly is noted. EXTREMITIES: Without edema. LABORATORY DATA AND IMAGING STUDIES: Reviewed. IMPRESSION: Anemia with Hemoccult-positive stools. This is suspicious for underlying gastrointestinal tract blood loss given her use of anticoagulants. I discussed with her the need for further evaluation with upper endoscopy as she has never had this. This can be arranged as an outpatient as she does not wish to stay in the hospital over the weekend. She is established with Dr. Tijerina in his office and I have asked her to call them on Monday and I will notify him of her admission over the weekend, but I think she is stable to be discharged and she should resume Eliquis until a firm date for the endoscopy is planned. She may not need repeat colonoscopy given the findings at her last one, which was less than 2 years ago. Small bowel capsule could be a possible next step if she continues to show signs of anemia after her blood transfusion. I agree with treating her with a proton pump inhibitor. Thanks for asking me to see her. I will follow her in the hospital with you. MD MINI Thakkar/TIMOTHY / [phone]
[2024-11-09 12:54] LABS: Glucose, Whole Blood 129 mg/dL (60-115)
--- NOTE | 2024-11-09 12:56 | PC.NURSE ---
patient made phone call to daughter with this RN in room stating she was going to report this RN due to not getting her home medications/discharge. patient educated that inpatient providers were made aware of patient wanting home medications ordered and wanting to be discharged, patient discharge/ home medications have not been put in yet. inpatient provider made aware of patient current desires. patient currently sitting in chair eating lunch.
[2024-11-09] MEDS: Multivitamin TABLET 1 TAB PO (14:00)
[2024-11-09] MEDS: Loratadine 10 MG TABLET PO (14:00)
[2024-11-09] MEDS: Labetalol HCL 100 MG TABLET PO ×2 (14:00→21:32)
[2024-11-09] MEDS: Empagliflozin 10 MG TABLET PO (14:00)
--- NOTE | 2024-11-09 14:02 | PC.NURSE ---
patient medicated per MAR, alert and oriented x3. patient blood transfusion started per TAR, running 100ml/hr. patient VSS
--- NOTE | 2024-11-09 15:08 | P.DS_ITS ---
DS: Providers Provider Date of Service: 11/09/24 Date of admission: 11/09/24 00:31 Date of discharge: 11/09/24 Primary care physician: [facility] Consults: 11/09/24 00:31 Consult to Gastroenterology Routine Consulting Provider: Tima Maldonado Reason for consultation: anemia Has provider been notified: No DS: Diagnosis Discharge Diagnosis (1) Anemia: Status: Acute DS: Summary Hospital Course Hospital Course: 79-year-old female with a past medical history of history, HLD, dm, chronic low back pain, obesity, osteopenia, GERD, recent CVA diagnosed in September 2024- discharged on Eliquis while investigating for AFib; presented to the hospital today with a chief complaint of anemia. Patient mentioned that she went to her PCP's office and noted to have hemoglobin of 7.4 and subsequently asked her to go to the ER for further evaluation. Patient denies any signs of bleeding. Mentioned that she was recently started on Eliquis which he has been taking and last dose was on 11/08/2024. Patient reports mild shortness of breath on exertion. Denies any chest pain or palpitations. Denies any fever chills cough or sputum production. Denies any urinary symptoms. Review of all other systems is negative except mentioned above ER course: Per ER team, patient's exam was benign; hemoglobin of 7.4. Ordered for 1 unit of PRBC-not available but the blood bank said they will find the blood in the morning. Anemia, possibly related to anticoagulation Patient baseline hemoglobin around 10 Hemoglobin on presentation was 7.4, today 9.2/29.8 Two guaiac was positive Patient had mild dyspnea on exertion Patient was recently started on Eliquis in September 2024 after diagnosed with CVA/carotid stenosis-> last dose was on 11/08/2024 a.m. s/p 2 unit of PRBC GI consult> plan for o/p EGD and colonoscopy stop eliquis until seen by GI Continue PPI CVA/PICA stenosis. Patient was started on Eliquis in September for 3-6 months while being investigated for AFib. Eliquis has been stopped until patient is seen by GI Diabetes mellitus type 2. home medications Mental health Continue home medications Hyperlipidemia Continue statin Hypertension Continue labetalol Time Attestation Discharge Coordination Time (in mins): 42 Quality: Safe Use of Opioids Does Pt have an Active Cancer Diagnosis on the Problem List?: No Quality: Stroke Does the patient have a stroke diagnosis?: No Physical Exam Vital Signs: Vital Signs: Last Vital Signs Temp 98.6 F 11/09/24 14:12 Pulse 87 11/09/24 14:12 Resp 20 11/09/24 14:12 BP 160/79 H 11/09/24 14:12 Pulse Ox 93 11/09/24 14:12 O2 Del Method Room Air 11/09/24 14:12 BMI result Body Mass Index 37.4 Appearing in no acute distress head is normocephalic atraumatic eyes pupils are PERRLA sclera is anicteric mouth throat mucous membranes are intact and moist neck is supple no lymphadenopathy, no JVD noted lung sounds are clear to auscultation heart regular rate rhythm, clear S1, S2 positive bowel sounds, abdomen is soft, nontender neuro patient is alert x3, no focal deficits DS: Data Data Completed and Pending Completed studies during hospitalization [Text1]: Procedures Excision of Lumbar Vertebral Disc, Open Approach (08/13/24) Fusion of Lumbar Vertebral Joint with Interbody Fusion Device, Anterior Approach, Anterior Column, Open Approach (08/13/24) Insertion of Interspinous Process Spinal Stabilization Device into Lumbar Vertebral Joint, Open Approach (08/13/24) Removal of Interbody Fusion Device from Lumbosacral Joint, Open Approach (08/13/24) Labs on day of discharge: Laboratory Results - last 24 hr 11/08/24 11/08/24 11/09/24 18:26 22:35 06:26 WBC 8.5 8.2 RBC 3.78 L 4.20 Hgb 7.4 L 8.6 L Hct 25.3 L 29.6 L MCV 66.9 L 70.5 L MCH 19.6 L 20.5 L MCHC 29.2 L 29.1 L RDW 16.4 H 18.7 H Plt Count 356 353 MPV 9.9 10.4 Immature Gran % (Auto) 0.2 0.5 H Neut % (Auto) 60.8 62.1 Lymph % (Auto) 25.6 23.0 Blount % (Auto) 10.0 10.9 Eos % (Auto) 2.9 2.9 Baso % (Auto) 0.5 0.6 Lymph # (Auto) 2.2 1.9 Blount # (Auto) 0.9 0.9 Eos # (Auto) 0.3 0.2 Baso # (Auto) 0.0 0.1 Abs Immat Gran (auto) 0.02 0.04 H Absolute Neuts (auto) 5.2 5.1 Absolute Nucleated RBC 0.000 0.000 Nucleated RBC % (auto) 0.0 0.0 Sodium 140 141 Potassium 4.0 4.1 Chloride 110 H 108 Carbon Dioxide 22 24 Anion Gap 12 13 BUN 14 14 Creatinine 0.85 0.77 Estim Creat Clear Calc 53.8 59.4 Estimated GFR > 60 > 60 POC Glucose Random Glucose 118 H 135 H Calcium 9.1 9.4 Magnesium 2.0 Iron 109 TIBC 510 H % Saturation 21 Unsat Iron Binding 401 Total Bilirubin 0.4 1.4 H Direct Bilirubin 0.2 AST 17 26 ALT 16 15 Alkaline Phosphatase 74 75 Total Protein 6.7 7.0 Albumin 4.0 4.3 Vitamin B12 489 Folate 14.6 Stool Occult Blood POSITIVE Blood Type A Negative Antibody Screen NEGATIVE Crossmatch See Detail 11/09/24 11/09/24 07:24 12:50 WBC RBC Hgb Hct MCV MCH MCHC RDW Plt Count MPV Immature Gran % (Auto) Neut % (Auto) Lymph % (Auto) Blount % (Auto) Eos % (Auto) Baso % (Auto) Lymph # (Auto) Blount # (Auto) Eos # (Auto) Baso # (Auto) Abs Immat Gran (auto) Absolute Neuts (auto) Absolute Nucleated RBC Nucleated RBC % (auto) Sodium Potassium Chloride Carbon Dioxide Anion Gap BUN Creatinine Estim Creat Clear Calc Estimated GFR POC Glucose 173 H 129 H Random Glucose Calcium Magnesium Iron TIBC % Saturation Unsat Iron Binding Total Bilirubin Direct Bilirubin AST ALT Alkaline Phosphatase Total Protein Albumin Vitamin B12 Folate Stool Occult Blood Blood Type Antibody Screen Crossmatch Discharge Plan Discharge Anticipated Discharge Date/Time: 11/10/24 08:54 Patient Disposition: Home, Self-Care Discharge Diagnosis: Microcytic anemia Referrals: Brad Tijerina MD [Physician, Gastroenterology] - 1 Week Center,[facility] [Primary Care Provider, Medical] - 1 Week Discharge Medications: Continued citalopram 20 mg tablet 20 mg PO BEDTIME Qty: 90 1RF Citrucel 500 mg Tablet 500 mg PO DAILY pantoprazole 20 mg tablet,delayed release (DR/EC) 20 mg PO QPM labetalol 100 mg Tablet 100 mg PO BID 90 Days Qty: 180 0RF Protocol: Hold for SBP/HR < HOLD for SBP < : 90 HOLD for HR < : 60 alpha lipoic acid 100 mg capsule 100 mg PO DAILY calcium citrate 250 mg calcium tablet 630 mg PO DAILY cholecalciferol (vitamin D3) 25 mcg (1,000 unit) capsule 25 mcg PO DAILY multivitamin Tablet 1 tab PO DAILY ascorbate calcium (vitamin C) 500 mg tablet 500 mg PO DAILY Jardiance 10 mg tablet 10 mg PO DAILY Qty: 90 2RF cetirizine [All Day Allergy (cetirizine)] 10 mg tablet 10 mg PO DAILY Qty: 90 0RF rosuvastatin 5 mg tablet 5 mg PO DAILY Qty: 30 3RF Rx Instructions: Change from atorvastatin Discontinued Eliquis 5 mg Tablet 5 mg PO BID 90 Days Qty: 180 0RF Discharge Orders: Discharge Order (Routine); Ordered 11/10/24 Ordered By: Lamar Mathew Diet: Advance to usual diet Activity on Discharge: As tolerated Stand Alone Forms: Patient Portal Discharge page Print Language: Lithuanian Care Plan Goals: Hold Eliquis until seen by public aid eligibility assistant Follow up with public aid eligibility assistant for outpatient colonoscopy and endoscopy Health Concerns: Microcytic anemia Plan of Treatment: Follow-up with primary care provider as needed Take all medications as prescribed Assessment: See discharge summary Patient Instructions: Blood Transfusion Discharge Instructions
[2024-11-09 17:09] LABS: Glucose, Whole Blood 130 mg/dL (60-115)
--- NOTE | 2024-11-09 17:16 | PC.NURSE ---
patient blood transfusion finished per TAR. VSS at this time, patient ambulates to bathroom with walker
--- NOTE | 2024-11-09 18:31 | PC.NURSE ---
patient diet upgraded to regular diet, patient sitting up eating dinner at this time.
--- NOTE | 2024-11-09 19:28 | PC.NURSE ---
this rn assumed care of pt, pt sitting up in room, no acute distress noted, vss
[2024-11-09] MEDS: Melatonin 3 MG TABLET 6 MG PO (21:32)
[2024-11-09] MEDS: Acetaminophen 325 MG TABLET 650 MG PO (21:32)
[2024-11-09 21:33] LABS: Glucose, Whole Blood 136 mg/dL (60-115)
[2024-11-09] MEDS: 0.9 % Sodium Chloride Flush 3 ML SYRINGE IVFLUSH (21:35)
[2024-11-10] VITALS: BP 128/60; PULSE 88; RESP 16; TEMP 36.8; O2SAT 93
[2024-11-10 04:00] VITALS: BP 144/49; PULSE 83; RESP 16; TEMP 36.2; O2SAT 93
[2024-11-10] MEDS: Pantoprazole Sodium 40 MG/10 ML VIAL IVPUSH (05:47)
[2024-11-10 07:05] VITALS: BP 130/61; PULSE 76; RESP 18; TEMP 36.4; O2SAT 98
[2024-11-10 07:26] LABS: Glucose, Whole Blood 126 mg/dL (60-115)
[2024-11-10 08:35] LABS: Hematocrit 29.8 % (37.0-47.0); Hemoglobin 9.2 g/dl (12.0-16.0); Mean Corpuscular HGB Conc 30.9 g/dl (31.0-35.0); Mean Corpuscular Hemoglobin 21.7 pg (27.0-33.0); Mean Corpuscular Volume 70.4 fL (80.0-98.0); Mean Platelet Volume 10.1 fL (9.4-12.3); Platelet Count 327 X10*3/uL (160-400); Red Blood Count 4.23 X10*6/uL (4.20-5.50)
--- NOTE | 2024-11-10 08:55 | P.DS_ITS ---
DS: Providers Provider Date of Service: 11/10/24 Date of admission: 11/09/24 00:31 Date of discharge: 11/10/24 Primary care physician: [facility] Consults: 11/09/24 00:31 Consult to Gastroenterology Routine Consulting Provider: Tima Maldonado Reason for consultation: anemia Has provider been notified: No DS: Diagnosis Discharge Diagnosis (1) Anemia: Status: Acute DS: Summary Hospital Course Hospital Course: 79-year-old female with a past medical history of history, HLD, dm, chronic low back pain, obesity, osteopenia, GERD, recent CVA diagnosed in September 2024- discharged on Eliquis while investigating for AFib; presented to the hospital today with a chief complaint of anemia. Patient mentioned that she went to her PCP's office and noted to have hemoglobin of 7.4 and subsequently asked her to go to the ER for further evaluation. Patient denies any signs of bleeding. Mentioned that she was recently started on Eliquis which he has been taking and last dose was on 11/08/2024. Patient reports mild shortness of breath on exertion. Denies any chest pain or palpitations. Denies any fever chills cough or sputum production. Denies any urinary symptoms. Review of all other systems is negative except mentioned above ER course: Per ER team, patient's exam was benign; hemoglobin of 7.4. Ordered for 1 unit of PRBC-not available but the blood bank said they will find the blood in the morning. Anemia, possibly related to anticoagulation Patient baseline hemoglobin around 10 Hemoglobin on presentation was 7.4, today 9.2/29.8 Two guaiac was positive Patient had mild dyspnea on exertion Patient was recently started on Eliquis in September 2024 after diagnosed with CVA/carotid stenosis-> last dose was on 11/08/2024 a.m. s/p 2 unit of PRBC GI consult> plan for o/p EGD and colonoscopy stop eliquis until seen by GI Continue PPI CVA/PICA stenosis. Patient was started on Eliquis in September for 3-6 months while being investigated for AFib. Eliquis has been stopped until patient is seen by GI Diabetes mellitus type 2. home medications Mental health Continue home medications Hyperlipidemia Continue statin Hypertension Continue labetalol Time Attestation Discharge Coordination Time (in mins): 45 Quality: Safe Use of Opioids Does Pt have an Active Cancer Diagnosis on the Problem List?: No Quality: Stroke Does the patient have a stroke diagnosis?: No Physical Exam Vital Signs: Vital Signs: Last Vital Signs Temp 97.5 F 11/10/24 07:05 Pulse 76 11/10/24 07:05 Resp 18 11/10/24 07:05 BP 130/61 11/10/24 07:05 Pulse Ox 98 11/10/24 07:05 O2 Del Method Room Air 11/10/24 07:05 BMI result Body Mass Index 37.4 Appearing in no acute distress head is normocephalic atraumatic eyes pupils are PERRLA sclera is anicteric mouth throat mucous membranes are intact and moist neck is supple no lymphadenopathy, no JVD noted lung sounds are clear to auscultation heart regular rate rhythm, clear S1, S2 positive bowel sounds, abdomen is soft, nontender neuro patient is alert x3, no focal deficits DS: Data Data Completed and Pending Completed studies during hospitalization [Text1]: Procedures Excision of Lumbar Vertebral Disc, Open Approach (08/13/24) Fusion of Lumbar Vertebral Joint with Interbody Fusion Device, Anterior Approach, Anterior Column, Open Approach (08/13/24) Insertion of Interspinous Process Spinal Stabilization Device into Lumbar Vertebral Joint, Open Approach (08/13/24) Removal of Interbody Fusion Device from Lumbosacral Joint, Open Approach (08/13/24) Labs on day of discharge: Laboratory Results - last 24 hr 11/08/24 11/09/24 11/09/24 18:26 12:50 17:06 WBC RBC Hgb Hct MCV MCH MCHC RDW Plt Count MPV Absolute Nucleated RBC Nucleated RBC % (auto) POC Glucose 129 H 130 H Blood Type A Negative Antibody Screen NEGATIVE Crossmatch See Detail 11/09/24 11/10/24 11/10/24 21:23 07:20 08:05 WBC 8.0 RBC 4.23 Hgb 9.2 L Hct 29.8 L MCV 70.4 L MCH 21.7 L MCHC 30.9 L RDW 19.0 H Plt Count 327 MPV 10.1 Absolute Nucleated RBC 0.000 Nucleated RBC % (auto) 0.0 POC Glucose 136 H 126 H Blood Type Antibody Screen Crossmatch Discharge Plan Discharge Anticipated Discharge Date/Time: 11/10/24 08:54 Patient Disposition: Home, Self-Care Discharge Diagnosis: Microcytic anemia Referrals: Brad Tijerina MD [Physician, Gastroenterology] - 1 Week Center,[facility] [Primary Care Provider, Medical] - 1 Week Discharge Medications: Continued citalopram 20 mg tablet 20 mg PO BEDTIME Qty: 90 1RF Citrucel 500 mg Tablet 500 mg PO DAILY pantoprazole 20 mg tablet,delayed release (DR/EC) 20 mg PO QPM labetalol 100 mg Tablet 100 mg PO BID 90 Days Qty: 180 0RF Protocol: Hold for SBP/HR < HOLD for SBP < : 90 HOLD for HR < : 60 alpha lipoic acid 100 mg capsule 100 mg PO DAILY calcium citrate 250 mg calcium tablet 630 mg PO DAILY cholecalciferol (vitamin D3) 25 mcg (1,000 unit) capsule 25 mcg PO DAILY multivitamin Tablet 1 tab PO DAILY ascorbate calcium (vitamin C) 500 mg tablet 500 mg PO DAILY Jardiance 10 mg tablet 10 mg PO DAILY Qty: 90 2RF cetirizine [All Day Allergy (cetirizine)] 10 mg tablet 10 mg PO DAILY Qty: 90 0RF rosuvastatin 5 mg tablet 5 mg PO DAILY Qty: 30 3RF Rx Instructions: Change from atorvastatin Discontinued Eliquis 5 mg Tablet 5 mg PO BID 90 Days Qty: 180 0RF Discharge Orders: Discharge Order (Routine); Ordered 11/10/24 Ordered By: Lamar Mathew Diet: Advance to usual diet Activity on Discharge: As tolerated Stand Alone Forms: Patient Portal Discharge page Print Language: Sinhala Care Plan Goals: Hold Eliquis until seen by electric crane operator Follow up with electric crane operator for outpatient colonoscopy and endoscopy Health Concerns: Microcytic anemia Plan of Treatment: Follow-up with primary care provider as needed Take all medications as prescribed Assessment: See discharge summary Patient Instructions: Blood Transfusion Discharge Instructions
--- NOTE | 2024-11-10 09:43 | MHC.CM.PN ---
IMM 11/10/24, Pt lives alone, she does not have home health services, PCP is; ANICETO Alvarenga. HCP is on file and confirmed: Dotty and Tricia. Pt.'s car is in lot. She uses cane and walker. DCP: home, self care. CM to follow for DC needs.
[2024-11-10] MEDS: Cholecalciferol (Vitamin D3) 25 MCG TABLET PO (09:59)
[2024-11-10] MEDS: Multivitamin TABLET 1 TAB PO (09:59)
[2024-11-10] MEDS: Loratadine 10 MG TABLET PO (09:59)
[2024-11-10] MEDS: Labetalol HCL 100 MG TABLET PO (09:59)
[2024-11-10] MEDS: Escitalopram Oxalate 20 MG TABLET 40 MG PO (09:59)
[2024-11-10] MEDS: 0.9 % Sodium Chloride Flush 3 ML SYRINGE IVFLUSH (09:59)
[2024-11-10] MEDS: Ascorbic Acid 500 MG TABLET PO (09:59)
[2024-11-10] MEDS: Empagliflozin 10 MG TABLET PO (09:59)
[2024-11-10] MEDS: Pantoprazole Sodium 20 MG TABLET.DR PO (09:59)
--- NOTE | 2024-11-10 10:57 | P.PNGI_ITS ---
Subjective Subjective Date of Service: 11/10/24 Interval History: no bleeding Critical Care Time (minutes): 0 Physical Exam 2 Vital Signs: Vital Signs: Last Vital Signs Temp 97.5 F 11/10/24 07:05 Pulse 76 11/10/24 07:05 Resp 18 11/10/24 07:05 BP 130/61 11/10/24 07:05 Pulse Ox 98 11/10/24 07:05 O2 Del Method Room Air 11/10/24 07:05 BMI result Body Mass Index 37.4 GI: Other: abdomen is soft and nontender Objective Data Labs 11/10/24 08:05 11/09/24 06:26 Labs: Laboratory Results - last 24 hr 11/08/24 11/09/24 11/09/24 18:26 12:50 17:06 WBC RBC Hgb Hct MCV MCH MCHC RDW Plt Count MPV Absolute Nucleated RBC Nucleated RBC % (auto) POC Glucose 129 H 130 H Blood Type A Negative Antibody Screen NEGATIVE Crossmatch See Detail 11/09/24 11/10/24 11/10/24 21:23 07:20 08:05 WBC 8.0 RBC 4.23 Hgb 9.2 L Hct 29.8 L MCV 70.4 L MCH 21.7 L MCHC 30.9 L RDW 19.0 H Plt Count 327 MPV 10.1 Absolute Nucleated RBC 0.000 Nucleated RBC % (auto) 0.0 POC Glucose 136 H 126 H Blood Type Antibody Screen Crossmatch Procedures Date of Service Date of Service: 11/10/24 Progress Note: A&P Assessment and plan (1) Anemia: Status: Acute Assessment and Plan: reviewed results with patient she fani [place] [facility] as planned, Time Spent With Patient Time: Total time managing care of this patient today ____ minutes. Quality Stroke Does the patient have a stroke diagnosis?: No Reason for No Anti-thrombotic by Day Two: N/A - Med Ordered VTE Prior VTE?: No VTE Risk Level:: Medical - moderate - high VTE Device Contraindication: Treatment Not Indicated VTE Drug Contraindication: N/A - Med Ordered
== END 2024-11-10 11:12 | disposition home or self-care (01) | DRG 812 ==
LOC: HO.ED 21:16 → HO.EDOVER 11-09 01:43 → HO.IMC 11-09 19:29
PROVIDERS: Physician Assistant; Admitting Provider Hospitalist; Emergency Provider Internal Medicine; Visit Provider Nurse Practitioner Acute Care
DX: D50.9 Iron deficiency anemia, unspecified (principal); T45.515A Adverse effect of anticoagulants, initial encounter; M88.9 Osteitis deformans of unspecified bone; R19.5 Other fecal abnormalities; E11.9 Type 2 diabetes mellitus without complications; E78.5 Hyperlipidemia, unspecified; Z87.891 Personal history of nicotine dependence; Z86.73 Personal history of transient ischemic attack (TIA), and cerebral infarction without residual deficits; Z79.01 Long term (current) use of anticoagulants; Z79.899 Other long term (current) drug therapy
CPT/HCPCS: 36415; 80048; 80053; 80076; 82272; 82607; 82746; 82947; 83540; 83735; 85025; 85027; 86850; 86900; 86901; 86923; 99285; J2470; P9016

== ENCOUNTER → 2024-11-09 00:31 | Outpatient (BNV) | payer MEDICARE, SELFPAY | PROVIDERS: Admitting Provider Hospitalist; Emergency Provider Internal Medicine; Visit Provider Hospitalist | DX: D64.9 Anemia, unspecified (principal) | CPT/HCPCS: 99222; 99239 ==

== ENCOUNTER 2024-11-13 15:06 | Outpatient (AMB) | payer MEDICARE, SELFPAY ==
--- NOTE | 2024-11-28 15:46 | MHC.AMNUTRGE ---
Intake Visit Reasons: Initial Nutrition Assessment Allergies codeine Adverse Reaction (Intermediate, Verified 12/02/24 15:19) seizure oxycodone (From Percocet) Adverse Reaction (Intermediate, Verified 12/02/24 15:19) Nausea and Vomiting Nutrition Presentation Details: Met with patient in her home. Does not have blood pressure issues except when in the hospital recently. Eats a lot of sweets but does not have much of an appetite lately. Does not check BS right now. Recently had a TIA, GIB, fracture and back surgery. Eats an oikos yogurt and toast when not very hungry. Occasionally skips lunch and then will just snack throughout the day. Tends to wake up late, around 10 am and eat more of a brunch. Goes to bed between 10pm and 1 am. Did keep a food log but does not have blood sugars to review side by side. Avoids a lot of fruit due to IBS. Eats small amounts when she does and is pending an endoscopy TO r/o GIB. Has a BM TID. BMs come with urgency. Avoids AM appointments as a result. reports that he sometimes has difficulty when swallowing despite chewing food well. Lives alone, does yoga, walks with a walker. Recently had VNA. Occasionally drinks a protein nutrition supplement, cj hustle powder with 20 gm protein and flips crackers. Is interested in CORE PT, a glucometer and a sample CGM but not right now because she has a lot going on right now. KAVITA Crane will be made aware. GI symptoms: reports decreased appetite, early satiety and other (R/O GIB; BM TID mostly in the AM, with urgency) Food allergies/aversions: Yes (lactose intolerance) Physical activity assessment: Reviewed Other problems/issues: believes she is allergic to some of the building materials in her house. Diet Assmnt Details: denies recent weight change Dietary counseling: Mediterranean Who buys your food: self Who prepares/cooks your food: self Lifestyle Family support: Yes Exercise: No (Eventually wants a PT referral-not yet. Has a lot going on.) BS Monitoring Details: Does not currently have a glucometer and does not want one just yet. Has a lot going on and trying to take things one thing at a time. Most Recent Diabetes Results: Creatinine, (0.5-1.4) 0.79 mg/dL 11/30/24 BUN, (9-16) 24 mg/dL H 11/30/24 Sodium, (135-145) 137 mmol/L 11/30/24 Potassium, (3.3-5.1) 4.1 mmol/L 11/30/24 Chloride, (96-108) 107 mmol/L 11/30/24 Carbon Dioxide, (22-29) 23 mmol/L 11/30/24 Calcium, (8.4-10.2) 8.6 mg/dL 11/30/24 AST, (5-31) 19 U/L 11/30/24 ALT, (0-31) 13 U/L 11/30/24 Total Protein, (6.5-8.0) 6.3 g/dL L 11/30/24 Albumin, (3.5-5.0) 3.9 g/dL 11/30/24 Assessment Nutrition recommendation: RD nutrition education (high protein) LXR-Vilyxzy-Uh.Jeor Equation Calculated Activity Level: Sedentary Diagnosis Nutrition problem #1: food nutri know defi and inadequate protein energy As related to (etiology) #1: lack of nutrit education, decreased appetite, inadequate oral intake and unsure how to apply info As evidenced by (sign/symptom) #1: est intake less than need, food recall and knowledge deficit of diet Monitoring/Goals Nutrition problem monitoring: total energy intake, level of knowledge/skill, total PRO intake, glucose, fasting and oral fluids Nutrition goal/outcome: list 3 diab diet goals and list 3 high fiber foods Outcome comment: prevent loss of lean body mass Outcome progress: verbalized understanding Learning/Education Readiness to learn: excellent Stages of change: action Educational materials provided: Yes (snack guide, high protein) Date of nutrition screenin11/13/24 Date of nutritional follow-up: 12/18/24 Follow up Follow-up frequency: monthly Time Outcome assessment time: 60 minutes [facility] Medical History IBS (irritable bowel syndrome) Allergies Urticaria Dyslipidemia Type 2 diabetes mellitus without complication, without long-term current use of insulin Hearing impairment History of adenomatous polyp of colon Lumbar back pain with radiculopathy affecting left lower extremity Obesity (BMI 30-39.9) Paget's disease of the bone Osteopenia GERD (gastroesophageal reflux disease) Impaired fasting glucose Anxiety and depression Essential hypertension Surgical History History of back surgery Hx of LASIK Hx of left cataract extraction Hx of tubal ligation H/O colonoscopy History of partial hysterectomy History of appendectomy History of cholecystectomy H/O breast surgery History of lumbar discectomy Social History Household Members: None Housing: House Are you a primary point of care specialist to a significant other at home: No Do you presently have visiting nurse or other home services: No Alcohol intake: never Patient Tobacco Use Status: Never used Tobacco e-Cigarette/Vaping Use: Never Used Second Hand Smoke Exposure: No Advance Directives Date on File: 11/02/22 service: No Current occupational status: retired Cognitive needs: No Hearing needs: No Vision needs: Yes (Reading glasses) Review of Systems GI Reports early satiety Assessment & Plan Assessment & Plan (1) Type 2 diabetes mellitus without complication, without long-term current use of insulin: Code(s): E11.9 - Type 2 diabetes mellitus without complications Category: Medical Plan 1. increase protein intake 2. maintain good hydration 3. will meet with RD after GI workup Coding Level of Care Code Nutr Indiv Intake (26834) Diagnoses Type 2 diabetes mellitus without complication, without long-term current use of insulin E11.9
== END 2024-11-13 16:49 | disposition home or self-care (01) ==
LOC: HO.HMCCN 15:06
PROVIDERS: Visit Provider Dietitian, Registered
DX: E11.9 Type 2 diabetes mellitus without complications (principal)

== ENCOUNTER → 2024-11-13 15:06 | Outpatient (BNVA) | payer MEDICARE, SELFPAY | PROVIDERS: Visit Provider Dietitian, Registered | DX: E11.9 Type 2 diabetes mellitus without complications (principal); Z71.3 Dietary counseling and surveillance | CPT/HCPCS: 97802 ==

== ENCOUNTER 2024-11-19 11:33 | Day surgery (SDC) | payer MEDICARE, SELFPAY ==
--- OUTSIDE RECORDS SUMMARY | 2024-11-13 12:26 | XMS_ITS | Patient Health Record ---
Author Organization [facility] Physician Yoseph es Billing Info Address [address] [place] [address] [place] [address] Support Name Relationship Address Phone Tricia Real Emergency Contact [address] [place] [address] Yahaira Herring Guarantor Unknown [phone] Allergies Allergen (clinical drug ingredient) Drug/Non Drug [...] Problem Status W/U Status Risk Notes Problem [id number] Spondylolisthesi s, lumbar region (M43.16) Active confirmed Problem 766004256 Radiculopathy, lumbar region (M54.16) Active confirmed Problem 56003268 Spinal stenosis, 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) Active confirmed Problem 479722341 Lumbar radiculopathy (M54.16) Active confirmed Problem 193015565 Lumbar spondylos is (M47.816) Active confirmed Problem 987883101 Lumbar radiculopathy, chronic (M54.16) Active confirmed Problem 216785479 Spondylolisthesi s, unspecified spinal region (M43.10) Active confirmed Problem 07087418 Hypertension, unspecified type (I10) Active confirmed Problem 928663276 Gastroesophageal reflux disease, unspecified whether esophagitis present (K21.9) Active confirmed Plan Of Treatment Future Test Test Name Order Date MRI-LUMBAR SPINE; W/O CONTRAST MATL (721 48) 08/18/2020 XRAY- SPINE LUMBAR AP AND LAT/SPOT (7210 0)([facility]) 11/12/2020 CT- LUMBAR SPINE W/O CONTRAST (32230)([facility] 01/12/2021 XRAY- SPINE LUMBAR AP AND LAT/SPOT (7210 0)([facility]) 03/16/2021 CT- [facility] W/O CONTRAST (71176[facility] 07/13/2021 Insurance Providers Payer Name Payer Address Payer Phone Subscriber Number Group Number Insured Name Patient Relationship to Insured Coverage Start Date Coverage End Date [place] B [id number] [facility] [place], [place] [id number] Yahaira Herring Self - patient is the insured [facility] PPO [address] [place], [place] [phone] [id number] Yahaira Herring Self - patient is the insured Medical (General) History Medical History History ICD Code Lumbar radiculopathy Hypertension, unspecified type I10 Gastroesophageal reflux disease, unspeci fied whether esophagitis present K21.9 Spondylolisthesis, unspecified spinal re gion M43.10 Surgical History Surgery Date(Month/Year) hysterectomy gall bladder surgery appendectomy breast surgery Hospitalization History Reason Date(Month/Year) See Above
--- NOTE | 2024-11-18 12:41 | HO.ANESPROP2 ---
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 Started on Eliquis. [facility] admit 11/09/24-11/10/24 with anemia: Anemia, possibly related to anticoagulation Patient baseline hemoglobin around 10 Hemoglobin on presentation was 7.4, today 9.2/29.8 Two guaiac was positive Patient had mild dyspnea on exertion Patient was recently started on Eliquis in September 2024 after diagnosed with CVA/carotid stenosis-> last dose was on 11/08/2024 a.m. s/p 2 unit of PRBC GI consult> plan for o/p EGD and colonoscopy stop eliquis until seen by GI Continue PPI Follows [facility] Cardiology. Post discharge addendum 10/2024 Cardiac event monitor does show evidence of paroxysmal atrial fibrillation with AFib RVR, rate 150s seen on 11/01/2024. She is still wearing cardiac event monitor at this time. No recurrent AFib strips brought to my attention. She had been on Eliquis for anticoagulation. She was seen in the emergency room on 11/08/2024 for anemia. Guaiac-positive stools. Her Eliquis was put on hold. Seen by Dr. Maldonado with recommendation for an upper endoscopy. She was referred back to her primary GI provider, Dr. Tijerina. Spoke with her today she currently waiting for GI appointment. She has not felt any heart palpitations. Diagnosis of AFib and stroke risk with AFib reviewed with her. Recommend she restart anticoagulation as soon as cleared by GI to do so. She is on labetalol. At this time will have her stop labetalol and start on metoprolol tartrate 75 mg b.i.d.. Recommended periodic blood pressure checks at home. Will have our office nurse call her in 1-2 weeks to reassess vitals. Anesthesia Pre-Procedure Meds Is the patient on any of the following meds?: SGLT2 Inhib PMFSH Active Problems Active Problems: All Active Problems Pruritus (Acute) Hypersomnia (Acute) Hospital discharge follow-up (Acute) CVA (cerebral vascular accident) (Acute) Bilateral carotid artery stenosis (Acute) Cerebral aneurysm (Acute) Embolic cerebral infarction (Acute) Sinus tachycardia (Acute) Carotid stenosis (Acute) Lumbago (Acute) S/P lumbar spinal fusion (Acute) Lumbar adjacent segment disease with spondylolisthesis (Acute) Spinal stenosis, lumbar region, without neurogenic claudication (Acute) Chronic pain syndrome (Acute) Chronic right sacroiliac joint pain (Acute) Sacroiliitis (Acute) Postlaminectomy syndrome of lumbar region (Acute) Ischial bursitis of right side (Acute) Allergies (Acute) Urticaria (Acute) Dyslipidemia (Acute) Type 2 diabetes mellitus without complication, without long-term current use of insulin (Acute) Hearing impairment (Acute) History of adenomatous polyp of colon (Acute) Essential hypertension (Acute) Anxiety and depression (Acute) GERD (gastroesophageal reflux disease) (Acute) Osteopenia (Acute) Obesity (BMI 30-39.9) (Acute) Lumbar back pain with radiculopathy affecting left lower extremity (Acute) Past Medical History Medical History IBS (irritable bowel syndrome) Allergies Urticaria Dyslipidemia Type 2 diabetes mellitus without complication, without long-term current use of insulin Hearing impairment History of adenomatous polyp of colon Lumbar back pain with radiculopathy affecting left lower extremity Obesity (BMI 30-39.9) Paget's disease of the bone Osteopenia GERD (gastroesophageal reflux disease) Impaired fasting glucose Anxiety and depression Essential hypertension Family History Family history of problems with anesthesia: No Surgical History Surgical History History of back surgery Hx of LASIK Hx of left cataract extraction Hx of tubal ligation H/O colonoscopy History of partial hysterectomy History of appendectomy History of cholecystectomy H/O breast surgery History of lumbar discectomy History of Problems with Anesthesia: No Social History Social History Household Members: None Housing: House Are you a primary career development associate to a significant other at home: No Do you presently have visiting nurse or other home services: No Alcohol intake: never Patient Tobacco Use Status: Former Tobacco user e-Cigarette/Vaping Use: Never Used Second Hand Smoke Exposure: Yes Use of substances other than those prescribed or required for medical reasons: No Advance Directives: No Advance Directives Information Provided: Yes Advance Directives Date on File: 11/02/22 service: No Current occupational status: retired Cognitive needs: No Hearing needs: No Vision needs: Yes (Reading glasses) Meds Allergies Allergy/AdvReac Type Severity Reaction Status Date / Time codeine AdvReac Intermediate seizure Verified 11/08/24 18:08 oxycodone (From Percocet) AdvReac Intermediate Nausea and Verified 11/08/24 18:08 Vomiting Home Medications ?Medication ?Instructions ?Recorded ?Confirmed ?Last Taken ?Type alpha lipoic acid 100 mg capsule 100 mg PO DAILY 11/02/22 11/09/24 10/02/24 History ascorbate calcium (vitamin C) 500 500 mg PO DAILY 11/02/22 11/09/24 10/02/24 History mg tablet calcium citrate 630 mg PO DAILY 11/02/22 11/09/24 10/02/24 History cholecalciferol (vitamin D3) 25 25 mcg PO DAILY 11/02/22 11/09/24 10/02/24 History mcg (1,000 unit) capsule multivitamin 1 tab PO DAILY 11/02/22 11/09/24 10/02/24 History methylcellulose (laxative) 500 mg 500 mg PO DAILY 08/07/24 11/09/24 11/08/24 History tablet (Citrucel) pantoprazole 20 mg tablet,delayed 20 mg PO QPM 08/07/24 11/09/24 10/02/24 History release Exam Pertinent Lab Results Pertinent Lab Results: Laboratory Tests 11/09/24 11/10/24 06:26 08:05 WBC 8.0 Hgb 9.2 L Hct 29.8 L Plt Count 327 Sodium 141 Potassium 4.1 Chloride 108 Carbon Dioxide 24 BUN 14 Creatinine 0.77 Narrative Narrative: EKG 09/2024 Vent. Rate : 99 BPM Atrial Rate : 99 BPM P-R Int : 164 ms QRS Dur : 86 ms QT Int : 368 ms P-R-T Axes : 44 48 31 degrees QTcB Int : 472 ms Normal sinus rhythm Possible Inferior infarct (cited on or before 07-Aug-2024) Abnormal ECG When compared with ECG of 07-Aug-2024 13:19, No significant change was found ECHO 09/2024 Conclusions: - 1. Low normal LV ejection fraction of 50-55% with impaired relaxation filling pattern 2. Calcific aortic and mitral valve changes noted with cardiac valvular Dopplers within normal limits 3. Normal RV systolic pressure 4. No gross pericardial effusion Assessment and Plan Assessment Anesthesia Assessment: Chart Reviewed Final Anesthetic Review Family History of Problems with Anesthesia: No History of Problems with Anesthesia: No Documented by User: Tasia Choudhary MD 11/19/24 12:21 [facility] Past Medical History Medical History IBS (irritable bowel syndrome) Allergies Urticaria Dyslipidemia Type 2 diabetes mellitus without complication, without long-term current use of insulin Hearing impairment History of adenomatous polyp of colon Lumbar back pain with radiculopathy affecting left lower extremity Obesity (BMI 30-39.9) Paget's disease of the bone Osteopenia GERD (gastroesophageal reflux disease) Impaired fasting glucose Anxiety and depression Essential hypertension Surgical History Surgical History History of back surgery Hx of LASIK Hx of left cataract extraction Hx of tubal ligation H/O colonoscopy History of partial hysterectomy History of appendectomy History of cholecystectomy H/O breast surgery History of lumbar discectomy Social History Social History Household Members: None Housing: House Are you a primary career development associate to a significant other at home: No Do you presently have visiting nurse or other home services: No Alcohol intake: never Patient Tobacco Use Status: Former Tobacco user e-Cigarette/Vaping Use: Never Used Second Hand Smoke Exposure: Yes Use of substances other than those prescribed or required for medical reasons: No Advance Directives: No Advance Directives Information Provided: Yes Advance Directives Date on File: 11/02/22 service: No Current occupational status: retired Cognitive needs: No Hearing needs: No Vision needs: Yes (Reading glasses) Meds Allergies Allergy/AdvReac Type Severity Reaction Status Date / Time codeine AdvReac Intermediate seizure Verified 11/08/24 18:08 oxycodone (From Percocet) AdvReac Intermediate Nausea and Verified 11/08/24 18:08 Vomiting Home Medications ?Medication ?Instructions ?Recorded ?Confirmed ?Last Taken ?Type alpha lipoic acid 100 mg capsule 100 mg PO DAILY 11/02/22 11/09/24 10/02/24 History ascorbate calcium (vitamin C) 500 500 mg PO DAILY 11/02/22 11/09/24 10/02/24 History mg tablet calcium citrate 630 mg PO DAILY 11/02/22 11/09/24 10/02/24 History cholecalciferol (vitamin D3) 25 25 mcg PO DAILY 11/02/22 11/09/24 10/02/24 History mcg (1,000 unit) capsule multivitamin 1 tab PO DAILY 11/02/22 11/09/24 10/02/24 History methylcellulose (laxative) 500 mg 500 mg PO DAILY 08/07/24 11/09/24 11/08/24 History tablet (Citrucel) pantoprazole 20 mg tablet,delayed 20 mg PO QPM 08/07/24 11/09/24 10/02/24 History release Exam Airway Mallampati Class: II TM Dist: >3cm Neck ROM: Full Loose/Missing/Broken Teeth: No Heart: RRR Lungs: CTA Assessment and Plan Final Anesthetic Review NPO: Yes ASA Class: III Final Preanesthetic Review: Meds/Allgs Chart Reviewed, Consent Obtained/Reviewed and Anes Risks/Benef Reviewed Patient Risk: Intermediate Procedure Risk: Intermediate Anesthetic Plan Anesthetic Plan: MAC: Disposition: Standard PACU
[2024-11-19 11:45] VITALS: BMI 37.8
[2024-11-19 12:07] VITALS: BP 163/70; PULSE 95; RESP 16; TEMP 36.2; O2SAT 93
[2024-11-19] MEDS: Lactated Ringers 1,000 ML 50 ML IVCONT (12:09)
[2024-11-19 12:12] LABS: Glucose, Whole Blood 128 mg/dL (60-115)
--- NOTE | 2024-11-19 12:15 | MHC.SHP ---
Pre-Procedural Eval Section A - 24 Hr Update-Section A only Date of Service: 11/19/24 Section B - Complete if H&P > 30 days Chief Complaint: Anemia, unspecified Relevant Family History (Specify if Yes): No Relevant Social History: None Present Medications: see Short Stay Collaborative assessment Medical History: Significant History (Allergies Urticaria Dyslipidemia Type 2 diabetes mellitus without complication, without long-term current use of insulin Hearing impairment History of adenomatous polyp of colon Lumbar back pain with radiculopathy affecting left lower extremity Obesity (BMI 30-39.9) Paget's disease of the bone Osteo) History of Previous Operations: Relevant previous surgery/procedure and date(s) (History of partial hysterectomy History of appendectomy History of cholecystectomy H/O breast surgery History of lumbar discectomy) Allergies: Allergies Allergy/AdvReac Type Severity Reaction Status Date / Time codeine AdvReac Intermediate seizure Verified 11/08/24 18:08 oxycodone (From Percocet) AdvReac Intermediate Nausea and Verified 11/08/24 18:08 Vomiting Review of Systems Sugical H&P ROS: Negative: Constitution, Cardiovascular, Respiratory, Neurological, Psychiatric, Hem-Onc, Allergic/Immunologic, Gastrointestinal, Genitourinary, Musculoskeletal, Integumentary, Endocrine and Eyes/Ears/Nose/Throat Exam Surgical H&P Exam: Normal: HEENT, Normal: Heart, Normal: Lungs, Normal: Extremities, Normal: Abdomen, Normal: Skin and Normal: Neurological Plan Diagnosis/Plan: Unchanged I have reviewed the history and physical and performed a pertinent physical examination on my patient. No changes have occurred unless specified. Time Spent With Patient Time: Total time managing care of this patient today ____ minutes.
--- NOTE | 2024-11-19 13:13 | HO.OPN-COLON ---
Colonoscopy Operative Note Operative Note Date of Service: 11/19/24 Narrative: Operative Information Procedure Description: EGD, Colonoscopy Indication: anemia Anesthesia: MAC FLEXIBLE TRANSORAL UPPER GASTROINTESTINAL ENDOSCOPY AND COLONOSCOPY PROCEDURE NOTE UPPER ENDOSCOPY Consent: Indications for the procedure and potential complications of bleeding, perforation, reaction to medications and missed diagnosis were discussed with the patient and informed consent was obtained. Instrument: Olympus GIF H 190 J mid size upper endoscope Monitoring: Vital signs and clinical assessment, continuous EKG monitoring, Pulse oximetry, Carbon Dioxide monitoring and blood pressure monitoring were done throughout the procedure. Procedure: The patient was placed in the left lateral decubitis position and pre-procedure medications were administered and a bite block was placed. The endoscope was inserted into the mouth and advanced under direct vision to the third part of duodenum. A careful inspection was made as the upper endoscope was withdrawn including a retroflexed examination of the proximal stomach; Findings and interventions are described below. Findings: Larynx:normal Esophagus: GE junction at 36 cm, diaphragm hiatus at 40 cm, schatzki ring noted with 4 cm fixed hiatal hernia Stomach: atrophic gastritis. Biopsies were obtained. Grade 2 flap valve on retroflexed examination of the cardia. Duodenum: Normal bulb and descending duodenum, bx taken Intervention: Biopsies as noted above, COLONOSCOPY Instrument: Olympus variable stiffness pediatric scope 190L Colonoscopy Monitoring: Vital signs and clinical assessment, continuous EKG monitoring, Pulse oximetry, Carbon Dioxide monitoring and blood pressure monitoring were done throughout the procedure. Colon withdrawal time was 15 minutes. Procedure: The patient was placed in the left lateral decubitis position and pre-procedure medications were administered. After a digital rectal examination of the ano-rectum, the video colonoscope was inserted into the rectum and advanced through the colon to the cecum/TI. The colonoscope was slowly withdrawn in a retrograde panoramic fashion and the colon mucosa was carefully examined including a retroflexed view of the rectum. Findings and interventions are described below. Procedure Difficulty:moderate--used colowrap Findings: Terminal Ileum-normal Cecum: a few conglomerations of AVM noted in the cecum from 8-10 mm in diameter. these were lifted with eleview and then ablated using APC with hemospray then applied. Ascending Colon: normal Transverse Colon -normal Descending Colon:normal Sigmoid Colon: mild to moderate diverticulosis Rectum: Retroflexion with small internal hemorrhoids, grade I Anorectum - normal Colon preparation: [place] Bowel Preparation Scale Right colon; 2 Transverse colon: 2 Left colon; 2 (0 = Unprepared colon segment with mucosa not seen due to solid stool that cannot be cleared. 1 = Portion of mucosa of the colon segment seen, but other areas of the colon segment not well seen due to staining, residual stool and/or opaque liquid. 2 = Minor amount of residual staining, small fragments of stool and/or opaque liquid, but mucosa of colon segment seen well. 3 = Entire mucosa of colon segment seen well with no residual staining, small fragments of stool or opaque liquid) Impression and Post Procedure Diagnosis: Endoscopy Findings: hiatal hernia schatzki ring atrophic gastritis Colonoscopy Findings: AVM internal hemorrhoids diverticulosis Plan: Await Pathology results Repeat Colonoscopy in 5 years due to previous polyp history if health allows or earlier if clinically indicated High fiber diet leaflet avoid straining at stool, epsom salts and sitz bath, anusol supps or cream ok to start anticoagulation in 3 days from now low dose iron supplementation daily cont with PPI and GERD precautions Above findings were reviewed with the patient and relevant handouts were provided if indicated.
[2024-11-19 13:15] VITALS: BP 131/50; PULSE 89; RESP 18; TEMP 37.5; O2SAT 99
[2024-11-19 13:30] VITALS: BP 126/44; PULSE 81; RESP 16; O2SAT 92
[2024-11-19 13:45] VITALS: BP 140/47; PULSE 81; RESP 20; TEMP 37.4; O2SAT 92
--- NOTE | 2024-11-19 15:25 | PC.NURSE ---
PATIENT GIVEN TYLENOL AND SIMETHACONE PO PRIOR TO DISCHARGE. PATIENT STATES FEELING BETTER PRIOR TO DISCHARGE.
== END 2024-11-19 15:27 | disposition home or self-care (01) ==
PROVIDERS: Visit Provider Internal Medicine Gastroenterology
PROC: (CPT 45388; principal; 2024-11-19 13:00)
DX: D64.9 Anemia, unspecified (principal); Z86.0101 Personal history of adenomatous and serrated colon polyps; K55.21 Angiodysplasia of colon with hemorrhage; K57.30 Diverticulosis of large intestine without perforation or abscess without bleeding; K64.0 First degree hemorrhoids; K44.9 Diaphragmatic hernia without obstruction or gangrene; K22.2 Esophageal obstruction; K29.40 Chronic atrophic gastritis without bleeding; I10 Essential (primary) hypertension; E11.9 Type 2 diabetes mellitus without complications; E78.5 Hyperlipidemia, unspecified; M88.9 Osteitis deformans of unspecified bone; E66.9 Obesity, unspecified; L50.9 Urticaria, unspecified; Z79.01 Long term (current) use of anticoagulants; Z79.899 Other long term (current) drug therapy; Z88.5 Allergy status to narcotic agent
CPT/HCPCS: 45388; 45381; 43239; 82947; 88305; 88313; 88342; J2003; J2704

== ENCOUNTER → 2024-11-19 11:33 | Outpatient (BNV) | payer MEDICARE, SELFPAY | PROVIDERS: Visit Provider Internal Medicine Gastroenterology | DX: D64.9 Anemia, unspecified (principal); K44.9 Diaphragmatic hernia without obstruction or gangrene; K22.2 Esophageal obstruction; K29.70 Gastritis, unspecified, without bleeding; K57.90 Diverticulosis of intestine, part unspecified, without perforation or abscess without bleeding; Q27.33 Arteriovenous malformation of digestive system vessel | CPT/HCPCS: 43239; 45381; 45388 ==

== ENCOUNTER 2024-11-27 15:38 | Outpatient (AMB) | payer MEDICARE, SELFPAY ==
--- NOTE | 2024-11-27 15:42 | MHC.PC.OV ---
Vital Signs 11/27/24 15:45 Height 5 ft 1 in Weight 196 lb 6 oz BMI 37.1 BP 134/66 Blood Pressure Location Lt brachial Position Sitting Pulse 72 Pulse Source Pulse Oximeter Pulse Oximetry (%) 96 Oxygen Delivery Method Room Air Intake Visit Reasons: DM and HTN Edging Supervisor Required: No Accompanied by: Self / Same As Patient Allergies codeine Adverse Reaction (Intermediate, Verified 11/27/24 16:00) seizure oxycodone (From Percocet) Adverse Reaction (Intermediate, Verified 11/27/24 16:00) Nausea and Vomiting Medication List - Last Reconciled 11/27/24 by Lisa Card PA-C alpha lipoic acid 100 mg PO DAILY ascorbate calcium (vitamin C) 500 mg PO DAILY bisacodyl (Dulcolax (bisacodyl)) 10 mg (2 x 5 mg) PO ONCE 1 day calcium citrate 630 mg PO DAILY cetirizine (All Day Allergy (cetirizine)) 10 mg PO DAILY cholecalciferol (vitamin D3) 25 mcg PO DAILY citalopram 20 mg PO BEDTIME empagliflozin (Jardiance) 10 mg PO DAILY ferrous sulfate 220 mg (5 mL) PO DAILY methylcellulose (laxative) (Citrucel) 500 mg PO DAILY metoprolol tartrate 75 mg (1.5 x 50 mg) PO BID 30 days multivitamin 1 tab PO DAILY pantoprazole 20 mg PO QPM polyethylene glycol 3350 (Miralax) 238 grams PO ONCE 1 day rosuvastatin 5 mg PO DAILY Tobacco use date assessed: 11/27/24 Fall risk assessment: No Falls in past year Last assessed Fall Risk: 11/27/24 Dental Screening Dental Screen Date: 11/27/24 Did you have a dental visit in the last 12 months?: No Did you have a dental problem in the last 6 months where you did not have access to dental care?: No Was dental information given to patient?: Yes HPI DM and HTN HPI Details 87-year-old female with past medical history of dyslipidemia, type 2 diabetes mellitus, anxiety, depression, hypertension, GERD, obesity last seen 10/2024 coming in for follow up. The patient is an 79-year-old female presenting with anemia. Anemia was identified following an upper and lower endoscopy last week, with a hemoglobin level of 9.2 g/dL. The patient reports significant fatigue, which she attributes to anemia. The patient has a history of carotid artery stenosis, with a decision against surgical intervention due to the risk-benefit ratio. She experiences sleep disturbances, possibly due to sleep apnea, and a sleep study is planned. [facility] Medical History IBS (irritable bowel syndrome) Allergies Urticaria Dyslipidemia Type 2 diabetes mellitus without complication, without long-term current use of insulin Hearing impairment History of adenomatous polyp of colon Lumbar back pain with radiculopathy affecting left lower extremity Obesity (BMI 30-39.9) Paget's disease of the bone Osteopenia GERD (gastroesophageal reflux disease) Impaired fasting glucose Anxiety and depression Essential hypertension Surgical History History of back surgery Hx of LASIK Hx of left cataract extraction Hx of tubal ligation H/O colonoscopy History of partial hysterectomy History of appendectomy History of cholecystectomy H/O breast surgery History of lumbar discectomy Social History Household Members: None Housing: House Are you a primary healthcare sales representative to a significant other at home: No Do you presently have visiting nurse or other home services: No Alcohol intake: never Patient Tobacco Use Status: Former Tobacco user e-Cigarette/Vaping Use: Never Used Second Hand Smoke Exposure: Yes Advance Directives Date on File: 11/02/22 service: No Current occupational status: retired Cognitive needs: No Hearing needs: No Vision needs: Yes (Reading glasses) Questionnaire Thrive Questionnaire Date Thrive assessed: 11/27/24 I am a: Patient What is your living situation today?: I have a steady place to live Within the past 12 months, did the food you bought not last and you didn't have the money to get more?: Never true Within the past 12 months, did you worry whether your food would run out before you got money to buy more?: Never true Do you have trouble paying for medicines?: No Do you have trouble getting transportation to medical appointments?: No Do you have trouble with day-to-day activities such as bathing, preparing meals, shopping, managing finances, etc.?: I choose not to answer this question Are you currently unemployed and looking for a job?: No Are you interested in more education?: No Please select the resources that you would like help with: None Currently or been in a relationship where the following occur: No concerns reported THRIVE Score: 0 AUDIT C Alcohol Use Questionnaire (AUDIT-C) 1. How often do you have a drink containing alcohol?: Monthly or less Total Score: 1 PARISH-7 AMB Questionnaire PARISH-7 Date PARISH - 7 assessed: 11/27/24 Source: Developed by Drs. Dinh Trejo, Nicole Bhagat, Bari Sheikh and colleagues, with an educational melvin from [employer] Review of Systems Const Denies body aches, Denies chills, Denies fever(s), Denies headache(s) and Denies poor appetite Eyes Reports no additional complaints ENT Denies dizziness and Denies headache(s) Card Denies chest pain, Denies irregular heart rhythm, Denies lightheadedness and Denies dyspnea Resp Denies dyspnea GI Denies abdominal pain, Denies nausea and Denies vomiting Reports no additional complaints Musc Reports no additional complaints and Denies abnormal gait Skin/Breast Reports system reviewed and no additional complaints, except as documented Neuro Denies abnormal gait, Denies dizziness and Denies headache(s) Psych Reports no additional complaints Physical exam (Primary Care) Vital Signs: Last Vital Signs Pulse 72 11/27/24 15:45 BP 134/66 11/27/24 15:45 Pulse Ox 96 11/27/24 15:45 Oxygen Delivery Method Room Air 11/27/24 15:45 BMI result Body Mass Index 37.1 Tobacco/Smoking Status: Tobacco use Status Tobacco use date assessed 11/27/24 11/27/24 15:50 Patient Tobacco Use Status Former Tobacco user 11/27/24 15:42 e-Cigarette/Vaping Use Never Used 11/27/24 15:42 Thrive Assessment: Date of Thrive Assessment Date Thrive assessed 11/27/24 11/27/24 15:50 Currently or been in a relationship where the following occur: No concerns reported Const General: cooperative, healthy appearing, comfortable and no acute distress Orientation/consciousness: patient oriented x3 HENMT Head: Yes normocephalic Ears: hearing grossly normal bilaterally General nose exam: Normal external nose present Eyes General: appearance normal, both eyes and all related structures Conjunctivae: conjunctivae normal Neck Neck: Yes full ROM and Yes no lymphadenopathy Resp Effort & Inspection: normal respiratory effort Auscultation: clear to auscultation bilaterally, no crackles, no rales, no rhonchi and no wheezes Cardio Rate: regular rate Rhythm: regular rhythm Skin General skin exam: no rashes or lesions noted Neuro General: patient oriented x3 Gait exam (Neuro): Normal gait present Extrem General: Yes normal to inspection, Yes full ROM and No edema Psych Affect: normal affect Attitude: cooperative Insight: Good insight present (Psych) Judgement: Good judgement present (Psych) Coding Level of Care Code Est Pt Level 3 (25204) Diagnoses Essential hypertension I10 Stenosis of left carotid artery I65.22 Laterality: left Type 2 diabetes mellitus without complication, without long-term current use of insulin E11.9 Obesity (BMI 30-39.9) E66.9 CVA (cerebral vascular accident) I63.9 Anemia, unspecified type D64.9 Anemia type: unspecified type Assessment & Plan Assessment & Plan (1) Essential hypertension: Code(s): I10 - Essential (primary) hypertension Category: Medical Plan: Continue on current blood pressure medication. Avoid salt intake and encourage healthy diet and regular exercise. (2) Carotid stenosis: Code(s): I65.29 - Occlusion and stenosis of unspecified carotid artery Category: Medical Qualifiers: Laterality: left Qualified Code(s): I65.22 - Occlusion and stenosis of left carotid artery Plan: Patient has carotid ultrasound scheduled for January with Dr. Salinas appointment to follow (3) Type 2 diabetes mellitus without complication, without long-term current use of insulin: Code(s): E11.9 - Type 2 diabetes mellitus without complications Category: Medical Plan: Decrease the amount of carbohydrates such as pasta, bread, rice, and potatoes and limit the amount of sweets. Although fruits are generally healthy they should be eaten in moderation as they are still high in sugar. Hemoglobin A1c goal of less than 7%. (4) Obesity (BMI 30-39.9): Code(s): E66.9 - Obesity, unspecified Category: Medical Plan: Healthy diet and regular exercise is encouraged. (5) CVA (cerebral vascular accident): Comment: 10/03/2024 Small embolic looking left middle cerebral artery area ischemic infarction resulting in transient motor aphasia. Carotid stenosis is moderate and did not require any surgical intervention. Likely cause of this stroke was cardiac source of embolism. My recommendation is to anticoagulate for next 3-6 months and during that time investigated her heart for atrial fibrillation. Blood pressure control and aggressive statin management is also recommended. - per neurology note Code(s): I63.9 - Cerebral infarction, unspecified Category: Medical Plan: Advised good control of blood pressure, cholesterol and blood sugars. She is currently on Eliquis pending consideration from Cardiology for further risk stratification. Continue to follow with Dr. Salinas and has carotid ultrasound scheduled for January () Anemia: Code(s): D64.9 - Anemia, unspecified Category: Medical Qualifiers: Anemia type: unspecified type Qualified Code(s): D64.9 - Anemia, unspecified Plan: Patient having anemia on last blood work she did receive blood transfusion while in the hospital. She had endoscopy and colonoscopy with Dr. Tijerina which did not reveal any source of bleed. He did however place her on oral iron supplementation. Plan to repeat labs for CBC and iron profile Plan The patient will continue with the [id number] iron supplement to address anemia, with plans to recheck hemoglobin and iron levels in a month to assess improvement. A sleep study is scheduled to evaluate for potential sleep apnea, which may be contributing to her fatigue. Follow-up with cardiology is planned to manage atrial fibrillation, with consideration of the risks and benefits of continuing Eliquis given her carotid artery stenosis. The patient will be monitored for any gastrointestinal symptoms, particularly in relation to gastritis, and will continue on omeprazole as needed. This note was constructed using voice recognition software. While every effort has been made to ensure accuracy and actuarial science teacher, still areas may have been included sometimes these areas may affect the content or meeting of the given symptoms. Total time spent caring for the patient today was 30 minutes. This includes time spent before the visit reviewing the chart, time spent during the visit, and time spent after the visit and documentation. Patient was informed and verbally consented to the use of an ambient scribe for clinic note documentation during this visit. Orders: Orders IRON PROFILE Today D64.9 - Anemia, unspecified Complete Blood Count Auto Diff Today D64.9 - Anemia, unspecified, Z00.00 - Encounter for general adult medical examination without abnormal findings Vitamin B12 and Folate Today D64.9 - Anemia, unspecified, Z13.21 - Encounter for screening for nutritional disorder Medications: New ascorbate calcium (vitamin C) 500 mg PO DAILY 90 tabs 0RF blood-glucose meter (Freestyle InsuLinx meter) As directed 1 ea 0RF E11.9 - Type 2 diabetes mellitus without complications blood sugar diagnostic (Freestyle [employer] strips) As directed; to check sugars TID 50 ea 2RF lancets (FreeStyle Lancets) As directed; TID to check blood sugars 100 ea 1RF
--- OUTSIDE RECORDS SUMMARY | 2024-11-27 15:42 | XMS_ITS | Patient Health Record ---
[facility] Address [address] [place] [address] Care Team Providers Care Collet Gluer Name Role Phone Stephie Lisa Primary Care Provider Unavailab Sal Omalley Unavailable [phone] Anne Lin Unavailable [phone] Allergies Allergen (clinical drug ingredient) Drug/Non Drug Allergy documented on EMR Reaction Allergy Type Onset Date Status acetaminophen / oxycodone Percocet nausea and vomiting Drug Allergy Active codeine Codeine nausea Drug Allergy Active Results Component Value Reference Range Notes HEMOGLOBIN A1C (GLYCOHEMOGLO BIN) Reviewed date:10/15/2024 01:16:20 PM Interpretation: Performing Lab: Notes/Report: HEMOGLOBIN A1C % (HH) 6.5 Reason For Referral No Information Medications Medication SIG (Take, Route, Frequency, Duration) Notes Start Date End Date Status Atenolol Unknown hydroCHLOROthiazide Unknown Citalopram & Diet Manage Prod Active Losartan Potassium U nknown Gabapentin Unknown Extra Depth Orthopedic Shoes , (1) Pair With (3) Pair Custom Heat Molded Multidensity Innersoles Dx: NIDDM/PVD(E11.51), Hammertoe Foot Deformity(M20.41,M20.4 2), Preulcerative Skin Lesion(s)(L85.1) Wear Daily; Duration: 365 days 10/15/2024 Active Jardiance 10 MG 1 tablet Orally Once a day Active Olmesartan Medoxomil 40 MG 1 tablet Oral ly Once a day Active Citrucel 500 MG 2 tablets with a ful l glass of water as needed Orally Six times a day Active Pantoprazole Sodium 20 MG 1 tablet 1/2 t o 1 hour before morning meal Orally Once a day Active Social History [...] Problem Status W/U Status Risk Notes Problem Acquired hammer toe of right foot (6529731061237 105) Other hammer toe(s) (acquired), right foot (M20.41) Active confirmed Problem Acquired hammer toe of left foot (5568710008041 103) Other hammer toe(s) (acquired), left foot (M20.42) Active confirmed Problem Type 2 diabetes mellitus with peripheral angiopathy (262526779) Type 2 diabetes mellitus with diabetic peripheral angiopathy without gangrene (E11.51) Active confirmed Q7(A), Q8(2B), Q9(1B,2C) Vital Signs Blood pressure diastolic 85 mm Hg 10/15/2024 Height 5 ft 1 in in 10/15/2024 Blood pressure systolic 126 mm Hg 10/15/2024 Weight 200 lbs 10/15/2024 BMI 37.79 kg/m2 10/15/2024 Procedures Procedure Date Ordered Date Performed Result Body Sit e 81011-EMEDQVV NAIL, 1-5 10/15/2024 N/A 68747-DCOG SKIN LESIONS, 2 TO 4 10/15/2024 N/A [id number] DYSTROPHIC NAILS ANY # 10/15/2024 N/A Encounters Encounter Location Date [facility] [address] [place] [address] 10/15/2024 Sal Mace Type 2 diabetes mellitus with diabetic peripheral angiopathy without gangrene E11.51 ; Other hammer toe(s) (acquired), right foot M20.41 ; Tinea unguium B35.1 ; Pain in right toe(s) M79.674 ; Pain in left toe(s) M79.675 and Other hammer toe(s) (acquired), left foot M20.42 [facility] [address] [address] 07/24/2024 Anne Lin [facility] [address] [address] 07/31/2024 Anne Lin [facility] [address] [address] 09/26/2024 Anne Lin Assessments Encounter Date Diagnosis (ICD Code) Assessment Notes Treatment Notes Treatment Clinical Notes Section Notes 10/15/2024 Other hammer toe(s) (acquired), right foot (ICD-10 - M20.41) Patient Educated with: DIABETIC FOOT CARE INSTRUCTIONS.p df (DIABETIC FOOT CARE INSTRUCTIONS.p df) 10/15/2024 Type 2 diabetes mellitus with diabetic peripheral angiopathy without gangrene (ICD-10 - E11.51) Q7(A), Q8(2B), Q9(1B,2C) 10/15/2024 Tinea unguium (ICD-10 - B35.1) 10/15/2024 Pain in right toe(s) (ICD-10 - M79.674) 10/15/2024 Pain in left toe(s) (ICD-10 - M79.675) 10/15/2024 Other hammer toe(s) (acquired), left foot (ICD-10 - M20.42) Plan Of Treatment Pending Test Test Name Order Date 32754-SYJRHQP NAIL, 6 OR MORE 06/14/2012 69699-[id number] NAIL, 1-5 02/25/2013 23375-VJQZBZY NAIL, 1-10/15/2024 24614-WMWAMUP NAIL, 1-08/29/2012 [id number] NAIL, 1-11/28/2012 43641-Gozhwcnp Plate 11/28/2012 96234-Jqutdfqy Plate 02/25/2013 71850-Ireqjvvx Plate 06/14/2012 55061-Gzaewiow Plate 08/29/2012 27199-PEHL SKIN LESIONS, 2 TO 4 10/16/19 B9503-CPDIDUQU DYSTROPHIC NAILS ANY # Next Appt Details Provider Name:Sal Mace , 01/17/2025 01:45:00 PM, [address], [place], [address], Insurance Providers Payer Name Payer Address Payer Phone Subscriber Number Group Number Insured Name Patient Relationship to Insured Coverage Start Date Coverage End Date Medicare National [facility] [address] [place] [address] [id number] Yahaira Herring Self - patient is the insured 0 [employer] [address] [place] [address] [phone] [id number] Yahaira Herring Self - patient is the insured 0 Medical (General) History Medical History History ICD Code mumps measles high blood pressure chicken pox Pagets disease of bones arthritis Cataracts Menieres disease Reflux ( GERD) Sciatica Joint implants/screws Surgical History Surgery Date(Month/Year) nueroma left foot CABG surgery Back surgery 08/13/2024 Hospitalization History Reason Date(Month/Year) TIA- [facility] 10/02/2024
--- OUTSIDE RECORDS SUMMARY | 2024-11-27 15:42 | XMS_ITS | Data Portability ---
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 Plan of Treatment Reminders Order Date Submit Date Provider Last Modified By Organization Details Last Modified Time Details Appointments None recorded. Lab CMP, serum or plasma 2021 [facility] ([facility]), [address], [place], [address], 09:24:20 HbA1c (hemoglob in A1c), blood 2021 [facility] ([facility]), [address], [place], [address], 09:24:23 iron + total iron-bind ing capacity (TIBC), serum 2021 [facility] ([facility]), [address], [place], [address], 09:24:21 ferritin, serum or plasma 2021 [facility] ([facility]), [address], [place], [address], 09:24:22 CBC w/ auto diff 2021 [facility] ([facility]), [address], [place], [address], 09:24:19 vitamin D, 25-hydrox y + 1,25-dihy droxy, serum 2021 [facility] ([place]), [address] [place], [address], 14:36:53 lipid panel, serum 2021 [facility] ([place]), [address] [place], [address], 14:36:53 CMP, serum or plasma 2021 [facility] ([place] [address] [place], [address], 14:36:52 CBC w/ auto diff 2021 [facility] ([place]), [address] [place], [address], 14:36:52 TSH + free T4, serum 2021 [facility] ([place]), [address] [place], [address], 14:36:51 Referral None recorded. Procedures None recorded. Surgeries None recorded. Imaging DEXA, axial skeleton + vertebral fracture assessmen t 2021 [facility]), [address], [place], [address], 18:24:36 NM, myocardia l perfusion scan, w/ stress - Please do Mariluz Scan only, NO TREADMILL 2020 [id number] 6 [facility] ([facility]), [address], [place], [address], 12:04:59 Medication Orders olmesarta n 40 mg tablet 2021 [facility], [facility], [place], [address], 13:34:24 citalopra m 20 mg tablet 2021 [facility] [place], [address], 13:12:11 meclizine 25 mg tablet 2021 [facility], [facility], [place], [address], 13:12:10 pantopraz ole 40 mg tablet,de layed release 2021 [facility], [facility], [place], [address], 13:12:13 oxybutyni n chloride ER 10 mg tablet,ex tended release 24 hr 2021 [id number] [address], [place], [address], 13:10:36 olmesarta n 40 mg tablet 2020 [facility] [place], [address], 19:28:07 citalopra m 20 mg tablet 2020 021 [facility], [place], [address], 1 14:27:53 amlodipin e 5 mg tablet [id number] [facility] [place], [address], 2 13:03:53 olmesarta n 40 mg tablet 2020 021 [facility] [place], [address], 17:07:39 pantopraz ole 40 mg tablet,de layed release 2020 021 [facility], [place], [address], 1 12:28:29 citalopra m 20 mg tablet 2020 021 [facility], [place], [address], 12:28:27 amlodipin e 5 mg tablet 2020 [address]21 [address] [id number], [address] [address], [place], [address], 13:03:53 Patient TargetsNo targets recorded. Patient Instructions [...] uIU/m L 0.450- 4.500 Not Available [facility] ([facility]) [address] [place], [address], 11/30/2021 14:36:51 11/30/19 22 11/30/2021 TSH+F REE T4 T4,free(dire ct) 0.96 NG/dL 0.82-1 .77 Not Available [facility] ([facility]) [address] [place], [address], 11/30/2021 14:36:51 11/30/19 22 11/29/2021 CBC WITH DIFFE RENTI AL/PL ATELE T WBC 6.3 x10e3 /uL 3.4-10 .8 Not Available [facility] ([facility]) [address] [place], [address], 11/30/2021 14:36:52 11/30/19 22 11/29/2021 CBC WITH DIFFE RENTI AL/PL ATELE T RBC 4.50 x10e6 /uL 3.77-5 .28 Not Available [facility] ([facility]) [address] [place], [address], 11/30/2021 14:36:52 11/30/19 22 11/29/2021 CBC WITH DIFFE RENTI AL/PL ATELE T hemoglobin 9.6 g/dL 11.1-1 5.9 below low normal Not Available [facility] ([facility]) [address] [place], [address], 11/30/2021 14:36:52 11/30/19 22 11/29/2021 CBC WITH DIFFE RENTI AL/PL ATELE T hematocrit 32.1 % 34.0-4 6.6 below low normal Not Available [facility] ([facility]) [address] [place], [address], 11/30/2021 14:36:52 11/30/19 22 11/29/2021 CBC WITH DIFFE RENTI AL/PL ATELE T MCV 71 fL 79-97 below low normal Not Available [facility] ([facility]) [address] [place], [address], 11/30/2021 14:36:52 11/30/19 22 11/29/2021 CBC WITH DIFFE RENTI AL/PL ATELE T MCH 21.3 pg 26.6-3 3.0 below low normal Not Available [facility] ([facility]) [address] [place], [address], 11/30/2021 14:36:52 11/30/19 22 11/29/2021 CBC WITH DIFFE RENTI AL/PL ATELE T MCHC 29.9 g/dL 31.5-3 5.7 below low normal Not Available [facility] ([facility]) [address] [place], [address], 11/30/2021 14:36:52 11/30/19 22 11/29/2021 CBC WITH DIFFE RENTI AL/PL ATELE T RDW 15.5 % 11.7-1 5.4 above high normal Not Available [facility] ([facility]) [address] [place], [address], 11/30/2021 14:36:52 11/30/19 22 11/29/2021 CBC WITH DIFFE RENTI AL/PL ATELE T platelets 443 x10e3 /uL 150-45 0 Not Available [facility] ([facility]) [address] [place], [address], 11/30/2021 14:36:52 11/30/19 22 11/29/2021 CBC WITH DIFFE RENTI AL/PL ATELE T neutrophils 60 % not estab. Not Available [facility] ([facility]) [address] [place], [address], 11/30/2021 14:36:52 11/30/19 22 11/29/2021 CBC WITH DIFFE RENTI AL/PL ATELE T lymphs 27 % not estab. Not Available [facility] ([facility]) [address] [place], [address], 11/30/2021 14:36:52 11/30/19 22 11/29/2021 CBC WITH DIFFE RENTI AL/PL ATELE T monocytes 10 % not estab. Not Available [facility] ([facility]) [address] [facility], [place], [address], 11/30/2021 14:36:52 11/30/19 22 11/29/2021 CBC WITH DIFFE RENTI AL/PL ATELE T eos 2 % not estab. Not Available [facility] ([facility]) [address] [facility], [place], [address], 11/30/2021 14:36:52 11/30/19 22 11/29/2021 CBC WITH DIFFE RENTI AL/PL ATELE T basos 1 % not estab. 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 0 Not Available [facility] ([facility]) [address] [place], [address], 11/30/2021 14:36:52 11/30/19 22 11/29/2021 CBC WITH DIFFE RENTI AL/PL ATELE T lymphs (absolute) 1.7 x10e3 /uL 0.7-3. 1 Not Available [facility] ([facility]) [address] [facility], [place], [address], 11/30/2021 14:36:52 11/30/19 22 11/29/2021 CBC WITH DIFFE RENTI AL/PL ATELE T monocytes(ab solute) 0.6 x10e3 /uL 0.1-0. 9 Not Available [facility] ([facility]) [address] [facility], [place], [address], 11/30/2021 14:36:52 11/30/19 22 11/29/2021 CBC WITH DIFFE RENTI AL/PL ATELE T eos (absolute) 0.2 x10e3 /uL 0.0-0. 4 Not Available [facility] ([facility]) [address] [facility], [place], [address], 11/30/2021 14:36:52 11/30/19 22 11/29/2021 CBC WITH DIFFE RENTI AL/PL ATELE T baso (absolute) 0.1 x10e3 /uL 0.0-0. 2 Not Available [facility] ([facility]) [address] [facility], [place], [address], 11/30/2021 14:36:52 11/30/19 22 11/29/2021 CBC WITH DIFFE RENTI AL/PL ATELE T immature granulocytes 0 % not estab. Not Available [facility] ([facility]) [address] [facility], [place], [address], 11/30/2021 14:36:52 11/30/19 22 11/29/2021 CBC WITH DIFFE RENTI AL/PL ATELE T immature grans (abs) 0.0 x10e3 /uL 0.0-0. 1 Not Available [facility] ([facility]) [address] [facility], [place], [address], 11/30/2021 14:36:52 11/30/19 22 11/29/2021 CBC WITH DIFFE RENTI AL/PL ATELE T NRBC FRAME PULLEY MORTISING MACHINE OPERATOR Not Available [facility] ([facility]) [address] [facility], [place], [address], 11/30/2021 14:36:52 11/30/19 22 11/29/2021 CBC WITH DIFFE RENTI AL/PL ATELE T hematology comments: FRAME PULLEY MORTISING MACHINE OPERATOR Not Available [facility] ([facility]) [address] [facility], [place], [address], 11/30/2021 14:36:52 11/30/19 22 11/29/2021 COMP. METAB OLIC PANEL (14) glucose 131 mg/dL 65-99 above high normal Not Available [facility] ([facility]) [address] [facility], [place], [address], 11/30/2021 14:36:52 11/30/19 22 11/29/2021 COMP. METAB OLIC PANEL (14) BUN 14 mg/dL 8-27 Not Available [facility] ([facility]) [address] [place], [address], 11/30/2021 14:36:52 11/30/19 22 11/29/2021 COMP. METAB OLIC PANEL (14) creatinine 0.99 mg/dL 0.57-1 .00 Not Available [facility] ([facility]) [address] [facility], [place], [address], 11/30/2021 14:36:52 11/30/19 22 11/29/2021 COMP. METAB OLIC PANEL (14) eGFR 59 mL/mi n/1.7 3 >59 below low normal Not Available [facility] ([facility]) [address] [place] [place], [address], 11/30/2021 14:36:52 11/30/19 22 11/29/2021 COMP. METAB OLIC PANEL (14) BUN/creatini ne ratio 14 12-28 Not Available [facility] ([facility]) [address] [place], [address], 11/30/2021 14:36:52 11/30/19 22 11/29/2021 COMP. METAB OLIC PANEL (14) sodium 139 mmol/ L 134-14 4 Not Available [facility] ([facility]) [address] [place], [address], 11/30/2021 14:36:52 11/30/19 22 11/29/2021 COMP. METAB OLIC PANEL (14) potassium 5.0 mmol/ L 3.5-5. 2 Not Available [facility] ([facility]) [address] [place], [address], 11/30/2021 14:36:52 11/30/19 22 11/29/2021 COMP. METAB OLIC PANEL (14) chloride 102 mmol/ L 96-106 Not Available [facility] ([facility]) [address] [place], [address], 11/30/2021 14:36:52 11/30/19 22 11/29/2021 COMP. METAB OLIC PANEL (14) carbon dioxide, total 23 mmol/ L 20-29 Not Available [facility] ([facility]) [address] [place], [address], 11/30/2021 14:36:52 11/30/19 22 11/29/2021 COMP. METAB OLIC PANEL (14) calcium 9.2 mg/dL 8.7-10 .3 Not Available [facility] ([facility]) [address] [facility] [place], [address], 11/30/2021 14:36:52 11/30/19 22 11/29/2021 COMP. METAB OLIC PANEL (14) protein, total 6.9 g/dL 6.0-8. 5 Not Available [facility] ([facility]) [address] [facility] [place], [address], 11/30/2021 14:36:52 11/30/19 22 11/29/2021 COMP. METAB OLIC PANEL (14) albumin 4.3 g/dL 3.7-4. 7 Not Available [facility] ([facility]) [address] [facility], [place], [address], 11/30/2021 14:36:52 11/30/19 22 11/29/2021 COMP. METAB OLIC PANEL (14) globulin, total 2.6 g/dL 1.5-4. 5 Not Available [facility] ([facility]) [address] [facility], [place], [address], 11/30/2021 14:36:52 11/30/19 22 11/29/2021 COMP. METAB OLIC PANEL (14) A/G ratio 1.7 1.2-2. 2 Not Available [facility] ([facility]) [address] [facility], [place], [address], 11/30/2021 14:36:52 11/30/19 22 11/29/2021 COMP. METAB OLIC PANEL (14) bilirubin, total 0.2 mg/dL 0.0-1. 2 Not Available [facility] ([facility]) [address] [facility], [place], [address], 11/30/2021 14:36:52 11/30/19 22 11/29/2021 COMP. METAB OLIC PANEL (14) alkaline phosphatase 76 IU/L 44-121 Not Available [facility] ([facility]) [address] [facility], [place], [address], 11/30/2021 14:36:52 11/30/19 22 11/29/2021 COMP. METAB OLIC PANEL (14) AST (SGOT) 13 IU/L 0-40 Not Available [facility] ([facility]) [address] [facility], [place], [address], 11/30/2021 14:36:52 11/30/19 22 11/29/2021 COMP. METAB OLIC PANEL (14) ALT (SGPT) 15 IU/L 0-32 Not Available [facility] ([facility]) [address] [place] [place], [address], 11/30/2021 14:36:52 11/30/19 22 11/29/2021 LIPID PANEL cholesterol, total 181 mg/dL 100-19 9 Not Available [facility] ([facility]) [address] [facility] [place], [address], 11/30/2021 14:36:53 11/30/19 22 11/29/2021 LIPID PANEL triglyceride s 194 mg/dL 0-149 above high normal Not Available [facility] ([facility]) [address] [place] [place], [address], 11/30/2021 14:36:53 11/30/19 22 11/29/2021 LIPID PANEL HDL cholesterol 48 mg/dL >39 Not Available [facility] ([facility]) [address] [place] [place], [address], 11/30/2021 14:36:53 11/30/19 22 11/29/2021 LIPID PANEL VLDL cholesterol jamison 33 mg/dL 5-40 Not Available [facility] ([facility]) [address] [place] [place], [address], 11/30/2021 14:36:53 11/30/19 22 11/29/2021 LIPID PANEL LDL chol calc [facility] mg/dL 0-99 above high normal Not Available [facility] ([facility]) [address] [facility] [place], [address], 11/30/2021 14:36:53 11/30/19 22 11/29/2021 LIPID PANEL comment: FRAME PULLEY MORTISING MACHINE OPERATOR Not Available [facility] ([facility]) [address] [facility] [place], [address], 11/30/2021 14:36:53 11/30/19 22 11/30/2021 VITAM IN D, 1,25 + 25-HY DROXY calcitriol(1 ,25 di-oh vit D) 50.6 pg/mL 24.8-8 1.5 Ple ase note refer ence inter sara meyer e Not Available [facility] ([facility]) [address] [facility], [place], [address], 11/30/2021 14:36:53 11/30/19 22 11/30/2021 VITAM IN [...] um and D. Monica rich [place]: [facility] . 2. Fransisco whitley MF, Jhon hameed [place], Anup off-F errar i YOUNGBLOOD, et al. Evalu ation , treat ment, and preve ntion of vitam in D defic iency : an Endoc rine Socie ty clini jamison pract ice guide line. JCEM. 2010; 96(7) :1911 -30. Not Available [facility] ([facility]) [address] [facility], [place], [address], 11/30/2021 14:36:53 02/23/20 22 02/23/2022 CBC WITH PLATE LET AND DIFFE RENTI AL WBC 7.9 K/uL 3.8-11 .5 Not Available [facility]) [address], [place], [address], 02/23/2022 09:24:18 02/23/20 22 02/23/2022 CBC WITH PLATE LET AND DIFFE RENTI AL red blood cell count (RBC) 4.67 M/mm3 3.60-5 .30 Not Available [facility]) [address] [place] [address] [address], [place], [address], 02/23/2022 09:24:18 02/23/20 22 02/23/2022 CBC WITH PLATE LET AND DIFFE RENTI AL hemoglobin (HGB) 13.1 gm/dL 11.5-1 5.5 Not Available [facility] ([facility]) [address] [place] [address] [address], [place], [address], 02/23/2022 09:24:18 02/23/20 22 02/23/2022 CBC WITH PLATE LET AND DIFFE RENTI AL hematocrit (HCT) 39.1 % 35.2-4 6.4 Not Available [facility] ([facility]) [address] [place] [address] [address], [place], [address], 02/23/2022 09:24:18 02/23/20 22 02/23/2022 CBC WITH PLATE LET AND DIFFE RENTI AL MCV 83.7 fL 79.0-9 9.0 Not Available [facility] ([facility]) [address] [place] [address] [address], [place], [address], 02/23/2022 09:24:18 02/23/20 22 02/23/2022 CBC WITH PLATE LET AND DIFFE RENTI AL MCH 28.1 pg 26.9-3 5.0 Not Available [facility] ([facility]) [address] [place] [address] [address], [place], [address], 02/23/2022 09:24:18 02/23/20 22 02/23/2022 CBC WITH PLATE LET AND DIFFE RENTI AL MCHC 33.5 g/dL 30.4-3 4.8 Not Available [facility] ([facility]) [address], [place], [address], 02/23/2022 09:24:18 02/23/20 22 02/23/2022 CBC WITH PLATE LET AND DIFFE RENTI AL RDW NM fL 38.6-5 3.8 Unabl e to repor t RDW due to dimor phic red cell popul ation Not Available [facility] ([facility]) [address], [place], [address], 02/23/2022 09:24:18 02/23/20 22 02/23/2022 CBC WITH PLATE LET AND DIFFE RENTI AL platelet count 332 K/cum m 137-39 7 Not Available [facility] ([facility]) [address] [place] [address] Dr [address], [place], [address], 02/23/2022 09:24:18 02/23/20 22 02/23/2022 MANUA L DIFFE RENTI AL REVIE W/COU NT absolute immature granulocyte manual 0.00 K/uL 0.00-0 .03 Not Available [facility] ([facility]) [facility] [facility] [address], [place], [address], 02/23/2022 09:24:20 02/23/20 22 02/23/2022 MANUA L DIFFE RENTI AL REVIE W/COU NT absolute basophil count manual 0.1 K/uL 0.0-0. 1 Not Available [facility] ([facility]) [address] [place] [address] Dr [address], [place], [address], 02/23/2022 09:24:20 02/23/20 22 02/23/2022 MANUA L DIFFE RENTI AL REVIE W/COU NT absolute eosinophil count manual 0.2 K/uL 0.0-0. 6 Not Available [facility]) [address], [place], [address], 02/23/2022 09:24:20 02/23/20 22 02/23/2022 MANUA L DIFFE RENTI AL REVIE W/COU NT absolute monocyte count manual 0.8 K/uL 0.3-1. 0 Not Available [facility] ([facility]) [facility] [address], [place], [address], 02/23/2022 09:24:20 02/23/20 22 02/23/2022 MANUA L DIFFE RENTI AL REVIE W/COU NT absolute lymphocyte count manual 3.0 K/uL 0.9-3. 6 Not Available [facility] ([facility]) [facility] [address], [place], [address], 02/23/2022 09:24:20 02/23/20 22 02/23/2022 MANUA L DIFFE RENTI AL REVIE W/COU NT absolute neutrophil count manual 3.9 K/uL 2.0-8. 2 Not Available [facility] ([facility]) [address] [place] [address] Dr [address], [place], [address], 02/23/2022 09:24:20 02/23/20 22 02/23/2022 MANUA L DIFFE RENTI AL REVIE W/COU NT microcytosis SLIGHT Not Available [facility] ([facility]) [address] [place] [address] Dr [address], [place], [address], 02/23/2022 09:24:20 02/23/20 22 02/23/2022 MANUA L DIFFE RENTI AL REVIE W/COU NT anisocytosis MODERA TE Not Available [facility] ([facility]) [address] [place] [address] Dr [address], [place], [address], 02/23/2022 09:24:20 02/23/20 22 02/23/2022 MANUA L DIFFE RENTI AL REVIE W/COU NT poikilocytos is SLIGHT Not Available [facility]) [address] [place] [address] Dr [address], [place], [address], 02/23/2022 09:24:20 02/23/20 22 02/23/2022 MANUA L DIFFE RENTI AL REVIE W/COU NT fragmented cells FEW Not Available [facility] ([facility]) [address] [place] [address] Dr [address], [place], [address], 02/23/2022 09:24:20 02/23/20 22 02/23/2022 MANUA L DIFFE RENTI AL REVIE W/COU NT ovalocytes FEW Not Available [facility] ([facility]) [address] [place] [address] Dr [address], [place], [address], 02/23/2022 09:24:20 02/23/20 22 02/23/2022 MANUA L DIFFE RENTI AL REVIE W/COU NT platelet slide review NORMAL Plate let clump s noted . True plate let count may be highe r than repor esvin. Not Available [facility] ([facility]) [address] [place] [address] Dr [address], [place], [address], 02/23/2022 09:24:20 02/23/20 22 02/23/2022 MANUA L DIFFE RENTI AL REVIE W/COU NT neutrophils- manual 49 % 41-77 Not Available [facility]) [address] [place] [address] Dr [address], [place], [address], 02/23/2022 09:24:20 02/23/20 22 02/23/2022 MANUA L DIFFE RENTI AL REVIE W/COU NT lymphocytes manual 30 % 14-48 Not Available [facility] ([facility]) [address] [place] [address] Dr [address], [place], [address], 02/23/2022 09:24:20 02/23/20 22 02/23/2022 MANUA L DIFFE RENTI AL REVIE W/COU NT monocytes manual 10 % 4-13 Not Available [facility] ([facility]) [address] [place] [address] Dr [address], [place], [address], 02/23/2022 09:24:20 02/23/20 22 02/23/2022 MANUA L DIFFE RENTI AL REVIE W/COU NT eosinophils manual 2 % 0-8 Not Available [facility] ([facility]) [address] [place] [address] Dr [address], [place], [address], 02/23/2022 09:24:20 02/23/20 22 02/23/2022 MANUA L DIFFE RENTI AL REVIE W/COU NT basophils manual 1 % 0-1 Not Available [facility] ([facility]) [address] [place] [address] Dr [address], [place], [address], 02/23/2022 09:24:20 02/23/20 22 02/23/2022 MANUA L DIFFE RENTI AL REVIE W/COU NT atypical lymphocytes 8 % 0-12 Not Available [facility] ([facility]) [address] [place] [address] Dr [address], [place], [address], 02/23/2022 09:24:20 02/23/20 22 02/23/2022 COMPR EHENS DARYN METAB OLIC PANEL (CMP) sodium 141 mEq/L 135-14 5 Not Available [facility] ([facility]) [address] [place] [address] Dr Carter, [place], [address], 02/23/2022 09:24:20 02/23/20 22 02/23/2022 COMPR EHENS DARYN METAB OLIC PANEL (CMP) potassium 4.3 mEq/L 3.5-5. 3 Not Available [facility] ([facility]) [address] [place] [address] Dr Carter, [place], [address], 02/23/2022 09:24:20 02/23/20 22 02/23/2022 COMPR EHENS DARYN METAB OLIC PANEL (CMP) chloride 104 mEq/L 97-108 Not Available [facility] ([facility]) [address] [place] [address] Dr Carter, [place], [address], 02/23/2022 09:24:20 02/23/20 22 02/23/2022 COMPR EHENS DARYN METAB OLIC PANEL (CMP) CO2 25 mEq/L 22-32 Not Available [facility] ([facility]) [address] [place] [address] Dr Carter, [place], [address], 02/23/2022 09:24:20 02/23/20 22 02/23/2022 COMPR EHENS DARYN METAB OLIC PANEL (CMP) glucose 94 mg/dL 65-99 Not Available [facility] ([facility]) [address] [place] [address] Dr Carter, [place], [address], 02/23/2022 09:24:20 02/23/20 22 02/23/2022 COMPR EHENS DARYN METAB OLIC PANEL (CMP) BUN 19 mg/dL 8-23 Not Available [facility] ([facility]) [address] [place] [address] Dr Carter, [place], [address], 02/23/2022 09:24:20 02/23/20 22 02/23/2022 COMPR EHENS DARYN METAB OLIC PANEL (CMP) creatinine 0.84 mg/dL 0.50-1 .00 Not Available [facility] ([facility]) [address] [place] [address] Dr Carter, [place], [address], 02/23/2022 09:24:20 02/23/20 22 02/23/2022 COMPR EHENS DARYN METAB OLIC PANEL (CMP) calcium 9.5 mg/dL 8.6-10 .4 Not Available [facility] ([facility]) [address] [place] [address] Dr Carter, [place], [address], 02/23/2022 09:24:20 02/23/20 22 02/23/2022 COMPR EHENS DARYN METAB OLIC PANEL (CMP) protein 6.8 g/dL 6.0-8. 3 Not Available [facility] ([facility]) [address] [place] [address] Dr Carter, [place], [address], 02/23/2022 09:24:20 02/23/20 22 02/23/2022 COMPR EHENS DARYN METAB OLIC PANEL (CMP) albumin 4.2 g/dL 3.5-5. 3 Not Available [facility] ([facility]) [address] [place] [address] Dr Carter, [place], [address], 02/23/2022 09:24:20 02/23/20 22 02/23/2022 COMPR EHENS DARYN METAB OLIC PANEL (CMP) alkaline phosphatase 64 IU/L 35-121 Not Available [facility] ([facility]) [address] [place] [address] Dr Carter, [place], [address], 02/23/2022 09:24:20 02/23/20 22 02/23/2022 COMPR EHENS DARYN METAB OLIC PANEL (CMP) ALT (SGPT) 21 IU/L <5-47 Not Available [facility] ([facility]) [address] [place] [address] Dr Carter, [place], [address], 02/23/2022 09:24:20 02/23/20 22 02/23/2022 COMPR EHENS DARYN METAB OLIC PANEL (CMP) AST (SGOT) 15 IU/L <5-40 Not Available [facility] ([facility]) [address] [place] [address] Dr Carter, [place], [address], 02/23/2022 09:24:20 02/23/20 22 02/23/2022 COMPR EHENS DARYN METAB OLIC PANEL (CMP) bilirubin, total 0.2 mg/dL <0.2-1 .2 Not Available [facility] ([facility]) [address] [place] [address] Dr Carter, [place], [address], 02/23/2022 09:24:20 02/23/20 22 02/23/2022 COMPR EHENS DARYN METAB OLIC PANEL (CMP) A/G ratio 1.6 mg/dL 1.1-2. 5 Not Available [facility] [address] [place] [address] Dr Carter, [place], [address], 02/23/2022 09:24:20 02/23/20 22 02/23/2022 COMPR EHENS DARYN METAB OLIC PANEL (CMP) estimated GFR (black) 77 mL/mi n/1.7 3m2 >59 Not Available [facility] [address] [place] [address] Dr Carter, [place], [address], 02/23/2022 09:24:20 02/23/20 22 02/23/2022 COMPR EHENS [...] ll the crite tammy for CKD (Naomi hameed Int Suppl 2013; 3.1-1 50) The CKD-E [...] muscl e mass or diet. Not Available [facility] ([facility]) [address] [place] [address] Dr Carter, [place], [address], 02/23/2022 09:24:20 02/23/20 22 02/23/2022 PERCE NT SATUR ATION WITH IRON AND IBC iron 80 ug/dL 37-145 Not Available [facility] ([facility]) [address] [place] [address] Dr Carter, [place], [address], 02/23/2022 09:24:21 02/23/20 22 02/23/2022 PERCE NT SATUR ATION WITH IRON AND IBC iron binding cap 386 ug/dL 250-45 0 Not Available [facility] ([facility]) [address] [place] [address] Dr Carter, [place], [address], 02/23/2022 09:24:21 02/23/20 22 02/23/2022 PERCE NT SATUR ATION WITH IRON AND IBC percent saturation 21 % 15-50 Not Available [facility] ([facility]) [address] [place] [address] Dr Carter, [place], [address], 02/23/2022 09:24:21 02/23/20 22 02/23/2022 BELEM TIN ferritin 36.5 NG/mL 13.0-3 01.0 Not Available [facility] ([facility]) [address] [place] [address] Dr Carter, [place], [address], 02/23/2022 09:24:22 02/23/20 22 02/23/2022 HEMOG LOBIN A1C hemoglobin A1C 5.9 % <5.7 high The follo wing HbA1c range s recom sarah d by the Gisele man Diabe deni Assoc iatio n (ADA) may be used as an aid in the diagn osis of diabe deni bryoni tus. HA1c Sugge nilsa Diagn osis >=6.5 % Diabe tic 5.7% - 6.4% Pre-D iabet ic <5.7% Non-D iabet ic Not Available [facility] ([facility]) [address], [place], [address], 02/23/2022 09:24:23 02/23/20 22 02/23/2022 HEMOG LOBIN A1C estimated average glucose 123 mg/dL [place] [facility] Gluco se is calcu lated using the equat ion AG = (28.7 x HgbA1 c) - 46.7 based on the guide lines estab lishe d by the ADA. Not Available [facility] ([facility] [employer]) [address], [place], [address], 02/23/2022 09:24:23 10/10/19 21 09/21/2020 CT, angio [...] ast No observ ation record ed. [email or web address] [facility] [address], [place], [address], 07/09/2021 10:53:42 04/20/20 22 04/20/2022 DEXA, axial skele ton + verte bral fract ure asses sment No observ ation record ed. [email or web address] [facility] (Administrati on) [address], [place], [address], 04/25/2022 14:32:46 Result Notes None recorded. Problems Name Problem SNOMED Code Status Onset Date Resolution Date Notes Provider Name and Address Organization Details Recorded Time Gastroesophag eal reflux disease without esophagitis 535517231 Active 2018 Not Available [facility] 14:09:48 Anxiety 76610941 Active 2018 Not Available [facility] 14:09:48 Diarrhea 35948809 Active 2018 Not Available [facility] 14:09:48 Hemorrhoids 57709634 Active 2018 Not Available [facility] 14:09:48 Hyperlipidemi a 55126717 Active 2018 Not Available [facility] 14:09:48 Hypertensive disorder 40234054 Active 2018 Not Available [facility] 14:09:48 Prolapsed lumbar intervertebra l disc 270711883 Active 2018 Not Available [facility] 14:09:48 Prediabetes 377537399 Active 2018 Not Available [facility] 14:09:48 Problem Notes None recorded. Procedures Surgical History Date Name Laterality Status Provider Name and Address Organization Details Recorded Time 01/14/20 21 Most Recent Mammogram completed FEDERICO TORRES [place] - [facility] 03/08/2021 13:55:22 01/16/20 19 mammography completed Julia Harding [place] - [facility] 04/03/2019 13:18:13 Hysterectomy completed Atiya Dior MD [address], [place], [address], [facility] 04/03/2019 10:04:22 Appendectomy completed Atiya Dior MD [address] [place] [address], [place], [address], [facility] 04/03/2019 10:04:33 Tubal Ligation completed Atiya Dior MD [address] [place] [address] [facility], [place], [address], [facility] 04/03/2019 10:04:42 Tonsillectomy completed Atiya Dior MD [address] [place] [address] [facility], [place], [address], [facility] 04/03/2019 10:04:53 Cholecystectomy completed Atiya Dior MD [address] [place] [address], [address], [facility] 04/03/2019 10:05:00 Imaging Results None recorded. Procedure Notes None recorded. Medical Equipment None Reported. Allergies Allergen ID Allergen Name Allergen Category Reaction Reaction Severity Criticality Documentation Date Start Date Code Code System Note Provider Name and Address Organization Details Recorded Time 179 codeine medicatio n Not available Not available Not available 04/03/2019 2670 RxNorm Atiya quarles MD [address] [place] [address], [address], [facility] 9 10:01:14 180 acetamino phen / oxycodone medicatio n Not available Not available Not available 04/03/2019 36766 3 RxNorm Atiya quarles MD [address] [place] [address] [place] [address], [address], [facility] 9 10:01:20 Medications Name Sig Start Date [...] Updated DateTime 08/23/2021 97.4 [degF] 40.3 kg/m2 78822.61 g SHARONA HIGGINS, DIOR-C [address], [place], [address], [place] - [facility] 08/23/2021 12:58:22 Date Recorded Body height Oxygen saturation Oxygen saturation in Arterial blood by Pulse oximetry Respiratory rate Heart rate Systolic And Diastolic Provider Name and Address Organization Details Last Updated DateTime 2 154.94 cm 96 % 96 % 18 /min 103 /min 157/81 mm[Hg] FEDERICO TORRES [facility], [place] 2 13:21:21 Date Recorded Body height Heart rate Respiratory rate Oxygen saturation Oxygen saturation in Arterial blood by Pulse oximetry Body temperature Body mass index (BMI) Body weight Systolic And Diastolic Provider Name and Address Organization Details Last Updated DateTime 1 154.94 cm 90 /min 16 /min 96 % 96 % 97.5 [degF] 39 kg/m2 45318.1 8 g 149/78 mm[Hg] Mary Bhagat [facility], [place] 1 12:33:24 Date Recorded Body height Body temperature Heart rate Respiratory rate Oxygen saturation Oxygen saturation in Arterial blood by Pulse oximetry Body mass index (BMI) Body weight Systolic And Diastolic Provider Name and Address Organization Details Last Updated DateTime 1 154.94 cm 98 [degF] 101 /min 18 /min 98 % 98 % 38.1 kg/m2 26635.2 5 g 125/77 mm[Hg] Mary Bhagat [facility] 1 11:58:26 Date Recorded Body height Body temperature Body mass index (BMI) Body weight Respiratory rate Oxygen saturation Oxygen saturation in Arterial blood by Pulse oximetry Heart rate Systolic And Diastolic Provider Name and Address Organization Details Last Updated DateTime 2 154.94 cm 97.7 [degF] 40.2 kg/m2 60989.1 g 16 /min 96 % 96 % 93 /min 136/85 mm[Hg] CARMELLA STEINBERG [facility], [place] 2 12:41:15 Date Recorded Body height Body temperature Body mass index (BMI) Body weight Heart rate Respiratory rate Oxygen saturation Oxygen saturation in Arterial blood by Pulse oximetry Systolic And Diastolic Provider Name and Address Organization Details Last Updated DateTime 1 154.94 cm 97.8 [degF] 40.8 kg/m2 36859.9 5 g 94 /min 16 /min 95 % 95 % 143/75 mm[Hg] FEDERICO TORRES [facility], [place] 1 13:51:43 Social History Question Answer Notes LastModified by Organizat ion Details LastModified Time Tobacco Smoking Status Former Smoker Atiya Dior MD [address], [place], [address], [facility] - [facility], [place] 04/03/2019 10:06:33 Do You Have An Advance Directive? Yes [email or web address] Information not available 04/03/2019 What Is Your Level Of Caffeine Consumption? Occasional [email or web address] Information not available 04/03/2019 What Type Of Diet Are You Following? REGULAR Information not available 03/08/2021 What Is The Highest Grade Or Level Of School You Have Completed Or The Highest Degree You Have Received? [id number] Information not available 03/08/2021 When Did You Quit Smoking? 16+yearssincel [email or web address] Information not available 03/08/2021 Live Alone Or With Others? Alone [email or web address] Information not available 04/03/2019 What Was The Date Of Your Most Recent Tobacco Screening? 03/08/2021 Information not available 03/08/2021 How Many Children Do You Have? 2 [email or web address] Information not available 04/03/2019 What Is Your Relationship Status? Information not available 03/08/2021 At What Age Did You Start Smoking Tobacco? 16 Information not available 03/08/2021 General Stress Level Low [email or web address] Information not available 04/03/2019 How Many Years Have You Smoked Tobacco? 36 Information not available 03/08/2021 Sex: Unknown Functional Status Question Answer Note LastModified by Organizat ion Details LastModified Time Do you use any illicit or recreational drugs? No Information not available 03/08/2021 What is your level of alcohol consumption? None [email or web address] Information not available 04/03/2019 Are you currently employed? No Information not available 03/08/2021 Are you able to walk? YESWOREST Information not available 03/08/2021 Are you able to care for yourself? Yes Information not available 04/03/2019 What is your occupation? retired Information not available 04/03/2019 What is your [...] split virus, quadrivalent, preservative 9 completed [facility] [place] 10/09/2020 12:31:23 zoster recombinant 0 completed [facility] [place] 10/09/2020 12:31:23 Influenza, split virus, quadrivalent, preservative 0 completed [facility] [place] 10/09/2020 12:31:23 zoster recombinant 1 completed [facility] [place] 10/09/2020 12:31:23 COVID-19, mRNA, LNP-S, PF, 30 mcg/0.3 mL dose 1 completed FEDERICO TORRES [place] 03/22/2021 08:30:16 Past Encounters Encounter ID Performer Location Encounter Start Date Encounter Closed Date Diagnosis/Indication Diagnosis SNOMED-CT Code Diagnosis ICD10 Code Diagnosis Note [id number] Atiya Dior MD Main Office [address] [place] [address] [place] [id number] 04/03/2019 13:02:56 04/03/2019 13:53:59 Gastroesophageal reflux disease without esophagitis 123089212 K21.9 pt having reflux every day and using tums advised pt to try pepcid - will give script avoid dietary triggers weight loss advised Prolapsed lumbar intervertebral disc 875770848 M51.[address] Joya - getting shots every 90 days. debating surgery. Screening for malignant neoplasm of colon 521061064 Z12.11 pt has always done colonoscop y that was normal. she lives alone and getting to and from a colonoscop y would be difficult. will order cologuard. Anxiety 03115487 F41.9 stable on current meds. will continue current care. Hypertensive disorder 38 562682 I10 BP goal < 150/90 continue current care low salt diet and daily exercise recommende d Monitor BP at home and Return to care if elevated above 150/90 >50% of the time. Hyperlipidemia 20663485 E78.5 stable on current meds. will continue current care - weight loss advised and check labs. Prediabetes 875817726 R7 3.03 last A1c was 6.3 advised lifestyle changes [id number] Sukhwinder Vazquez MD Main Office [address] [place] [id number] 1 07/04/2019 13:53:17 07/04/2019 15:09:10 Postural dizziness 029642870 R42 -suspect orthostati c in nature as only occurs when standing -BP normal however HR goes from 92 to 110 upon standing and positive dizziness -no dizziness/ nystagmus with head thrust -check BMP, hgb -stop HCTZ and continue olmsartan only -orthostat ic dizziness education given Tachycardia 7629772 R00. 0 suspect all orthostati c related, however resting still in 90's is normal for her. -standing >110 -EKG shows normal rhythm Low back pain 229472646 M54.5 Needs to have back surgery and requires clearance. -no exertional or non exertional chest pain -exercises 3 times week -Intermedi ate risk surgery with 4 mets , no clinical risk factors -BMP, cbc normal can proceed to surgery without further testing - medically optimized for surgery. -EKG shows NSR at rest Pre-surger y evaluation 711773647 Z01.818 pt needs back surgery clearance. labs and EKG performed and were WNL. medically optimized for surgery. [id number] Atiya Dior MD Main Office [address] [place] [id number] 07/25/2019 13:21:07 07/25/2019 13:47:25 Hypertensive disorder 14600465 I10 BP goal < 150/90 will increase olmesartan to 40mg daily to help with BP low salt diet and daily exercise recommende d Monitor BP at home and Return to care if elevated above 150/90 >50% of the time. [id number] BARBARA MACIAS Main Office [address] [place] [id number] 1 04/21/2020 11:49:49 04/21/2020 12:38:15 Anxiety 51726243 F41.9 Patient states that covid and social distancing from friends/fa elba has been rough for her lately. Patient states she is relying on family more and doing well on her current medication . Patient encouraged to continue to stay safe while interactin g with her neighbors and continue to stay in touch with family members. [facility] Gastroesop hageal reflux disease without esophagitis 721976275 K21.9 Patient advised to avoid trigger foods, such as chocolate and pasta, and stay hydrated. Patient will start protonix today and monitor symptoms. Diarrhea 30710033 R19.7 Discussed the benefits of a daily probiotic. Patient will start taking this week. Encouraged patient to stay hydrated and maintain healthy diet while avoiding any trigger foods such as diary. [id number] Atiya Dior MD Main Office [address] [place] [id number] 1 10/09/2020 11:56:00 10/09/2020 12:56:01 Spinal stenosis of lumbar region 63424198 M48.061 notes, labs and imaging from hospital admission reviewed. S/p surgery and doing well post op Keep up f/u with surgeon natasha removed Hypertensive disorder 38 228131 I10 BP goal < 150/90 continue olmesartan 40mg daily will add amlodipine 2.5 - 5mg daily - SE of medication discussed low salt diet and daily exercise recommende d Monitor BP at home and Return to care if elevated above 150/90 >50% of the time. Sinus tachycardia 527866 01 R00.0 EKG from hospital admission and labs reviewed suspect multifacto rial - pain, anxiety will check stress test but doubt cardiac as cause. [id number] Atiya Dior MD Main Office [address] [place] [id number] 1 11/06/2020 11:47:01 11/06/2020 12:32:19 Hypertensive disorder 43210045 I10 BP goal < 150/90 continue olmesartan 40mg daily will add amlodipine 2.5 - 5mg daily - SE of medication discussed low salt diet and daily exercise recommende d Monitor BP at home and Return to care if elevated above 150/90 >50% of the time. Anxiety 44106288 F41.9 stable on current meds. will continue current care. Gastroesop hageal reflux disease without esophagitis 597811060 K21.9 doing well on PPI avoid dietary triggers weight loss advised [id number] KARINA HIGUERA FF Main Office [address] [place] [id number] 1 03/08/2021 13:29:23 03/08/2021 14:30:48 Hypertensive disorder 43202752 I10 BP log reviewed - will stop amlodipine - has only been taking 1/2 of her 5 mg amlodipine pill daily BP goal < 150/90 low salt diet and daily exercise recommende d Monitor BP at home and Return to care if elevated above 150/90 >50% of the time. Anxiety 23179570 F41.9 doing well on celexa, will renew [id number] Atiya Dior MD Main Office [address] [place] [id number] 1 08/23/2021 12:28:27 08/23/2021 13:25:06 Seasonal allergic rhinitis 139238650 J30.2 medication - advised flonase and anti-hista mine, OTC cough syrup or honey supportive care otherwises uspect that dizziness may be coming from congestion related to allergies Hypertensive disorder 38 279203 I10 BP goal < 140/90 Currently at goal and doing well on meds with no SE. Will continue current care. Low salt diet and daily exercise encouraged Advised to monitor BP at home and to RTC if >140/90 > 50% of the time Hyperlipidemia 52940312 E78.5 will update fasting labs Fatigue 34477774 R53.83 will check thyroid labs Vitamin D deficiency 347 75959 E55.9 currently supplement ing vitamin d3 - will update labs Overactive urinary bladder 317475332 N32.81 pt reports trouble sleeping related to getting up to use the bathroom every 2 hours at night - will start oxybutynin ER 10 mg tablet [id number] Atiya Dior MD Main Office [address] [place] [address] 02/22/2022 12:32:36 02/22/2022 13:23:59 Anxiety 34784557 F41.9 doing well on celexa, will renew Hypertensive disorder 38 857529 I10 BP goal < 140/90 Currently at goal and doing well on meds with no SE. Will continue current care. Low salt diet and daily exercise encouraged Advised to monitor BP at home and to RTC if >140/90 > 50% of the time Gastroesop hageal reflux disease without esophagitis 913316906 K21.9 stable on PPI. avoid dietary triggers Iron defic iency anemia 54173772 D50.9 last H/H was 9.6she is taking iron dailywill recheck labsmay need colonoscop y - denies bleeding Impaired g lucose tolerance 8575154 R73.02 BS was 131 on last set of labswill check A1c Vertigo 829633650 R42 prn use of meclizinew arning signs reviewed - ED if they present Menopausal and postmenopausal disorders 211560942 N95.9 Health Concerns Section Related Observation LastModified by Organization Detai ls LastModified Time None Recorded Concern Status LastModified by Organization Details LastModified Time None Recorded Advance Directives Directive Y: Payers Insurance Date Sequence Insurance Name Policy Number Policy [place] Covered Member ID [place] Member ID Guarantor Name 06/29/2022 1 [place] COURTNEY Abebein [id number] [place] Nmia 04/15/2022 3 [place] [employer] [place]MEDIC[place] SUPPLE[place]) [id number] Yahaira Nima [id number] [place] Nima 04/15/2022 3 [place] [id number] [place] Nima [id number] Yahaira Nima 06/29/2022 2 [place] [id number] [place] Nima [id number] [place] Nima Notes Date Note Type Note Provider [...] is better now. Atiya Dior MD [address], [place], [address], [facility] 10/12/2020 10:55:40 11/06/2020 text/html Follow up, dl nt had recent surgery and is still healing from back surgery by Dr. Talley. Patient has been tachycardiac since surgery which has improved on its own. She says she is having trouble with pain in bilateral upper thighs with walking. She is only taking Tylenol for pain. she did not try propranolol. Atiya Dior MD [address], [place], [address], [facility] 11/10/2020 17:09:55 03/08/2021 text/html Here for f/u on blood pressure. Reports that even taking half of the 5 mg amlodipine tablet she is feeling too dizzy and fatigued. SHARONA HIGGINS, DIOR-C 4612 [address], [place], [address], [facility]ly [facility], [place] 03/08/2021 19:35:15 08/23/2021 text/html Here to follow u p regarding blood pressure. She has brought her log with her today. BPs are averaging 120s/60s. Her heart rate is usually elevated in the 90s-100s. Has had some dizziness but reports she thinks its allergy related. Pt does have h/o vertigo. [employer] [address], [place], [address], [facility], [place] 08/23/2021 13:48:40 02/22/2022 text/html She has been [...] up in the am. Atiya Dior MD [id number] [facility] [address], [place], [address], [facility] - [facility], [place] 02/25/2022 05:13:33 OBGyn Episode No OBEpisode recorded.
--- OUTSIDE RECORDS SUMMARY | 2024-11-27 15:42 | XMS_ITS | Patient Health Record ---
Author Organization [facility] Physician Yoseph es Billing Info Address [address] [place] [address] [place] [address] Support Name Relationship Address Phone Tricia Real Emergency Contact [address] [place] [address] Yahaira Herring Guarantor Unknown Allergies Allergen [...] Problem Status W/U Status Risk Notes Problem 133919538556285 Spondylolisthesi s, lumbar region (M43.16) Active confirmed Problem 993453115 Radiculopathy, lumbar region (M54.16) Active confirmed Problem 56989436 Spinal stenosis, 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) Active confirmed Problem 978376161 Lumbar radiculopathy (M54.16) Active confirmed Problem 798837040 Lumbar spondylos is (M47.816) Active confirmed Problem 712761538 Lumbar radiculopathy, chronic (M54.16) Active confirmed Problem 879178645 Spondylolisthesi s, unspecified spinal region (M43.10) Active confirmed Problem 51788759 Hypertension, unspecified type (I10) Active confirmed Problem 615185678 Gastroesophageal reflux disease, unspecified whether esophagitis present (K21.9) Active confirmed Plan Of Treatment Future Test Test Name Order Date MRI-LUMBAR SPINE; W/O CONTRAST MATL (721 48) 08/18/2020 XRAY- SPINE LUMBAR AP AND LAT/SPOT (7210 0)([facility]) 11/12/2020 CT- LUMBAR SPINE W/O CONTRAST (55808)([facility]) 01/12/2021 XRAY- SPINE LUMBAR AP AND LAT/SPOT (7210 0)([facility]) 03/16/2021 CT- LUMBAR SPINE W/O CONTRAST (43956)([facility] 07/13/2021 Insurance Providers Payer Name Payer Address Payer Phone Subscriber Number Group Number Insured Name Patient Relationship to Insured Coverage Start Date Coverage End Date [place]ARE [place] PART B [address] [facility] [place], [place] [id number] Yahaira Herring Self - patient is the insured [facility] PPO [address] [place], [place] [id number] Yahaira Herring Self - patient is the insured Medical (General) History Medical History History ICD Code Lumbar radiculopathy Hypertension, unspecified type I10 Gastroesophageal reflux disease, unspeci fied whether esophagitis present K21.9 Spondylolisthesis, unspecified spinal re gion M43.10 Surgical History Surgery Date(Month/Year) hysterectomy gall bladder surgery appendectomy breast surgery Hospitalization History Reason Date(Month/Year) See Above
--- OUTSIDE RECORDS SUMMARY | 2024-11-27 15:42 | XMS_ITS | Clinical Summary ---
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
--- OUTSIDE RECORDS SUMMARY | 2024-11-27 15:43 | XMS_ITS | Patient Health Record ---
Author Organization [facility] Address [address] [place] [address] [address] [place] [address] Care Team Providers Care Canceling And Cutting Control Clerk Name Role Phone Karyna Clarke Unavailable [phone] Reason For Referral No Information Medications Medication SIG (Take, Route, Frequency, Duration) Notes Start Date End Date Status hydroCHLOROthiazide 1 ORAL daily; Duration: -3 [facility] 09/24/2012 Active Citalopram Hydrobromide 20MG ORAL; Duration: -3 [facility] Active CeleBREX 200MG ORAL; Duration: -3 [facility] 10/15/2013 Active Vitamin E 200UNITS 1 ORAL daily; Duration: -3 [facility] 09/24/2012 Active Atenolol 25MG 1 ORAL DAILY; Duration: -3 [facility] 09/24/2012 Active Calcium 1 ORAL daily; Duration: -3 [facility] 09/24/2012 Active Vitamin D3 1000 IU ORAL daily; Duration : -3 [facility] 09/24/2012 Active [place] Jelly 1 ORAL daily; Duration: -3 [facility] 09/24/2012 Active Problems Problem Type SNOMED Code ICD Code Onset Dates Problem Status W/U Status Risk Notes Problem Menopausal symptom (55994088) Symptomatic menopausal or female climacteric states (627.2) Active confirmed Major Problem Gynecological examination normal (578206833563572) Routine gynecological examination (V72.31) Active confirmed Diag Problem Exercises teaching, guidance, and counseling (800173646) Exercise counseling (V65.41) Active confirmed Diag Problem Special screenin g for malignant neoplasms, colon (V76.51) Active confirmed Major Plan Of Treatment No Information Insurance Providers Payer Name Payer Address Payer Phone Subscriber Number Group Number Insured Name Patient Relationship to Insured Coverage Start Date Coverage End Date MEDICARE [address] [place], [place] [id number] NATALY JAIN Self - patient is the insured 1 [employer] [address] [place] [address] [phone] [id number] Self - patient is the insured 1
[2024-11-27 15:45] VITALS: BP 134/66; PULSE 72; O2SAT 96; BMI 37.1
== END 2024-11-27 16:40 | disposition home or self-care (01) ==
LOC: HO.HMCH 15:39
DX: I10 Essential (primary) hypertension (principal); E11.9 Type 2 diabetes mellitus without complications; I63.9 Cerebral infarction, unspecified; Z68.37 Body mass index [BMI] 37.0-37.9, adult; E66.9 Obesity, unspecified; I65.22 Occlusion and stenosis of left carotid artery; D64.9 Anemia, unspecified

== ENCOUNTER → 2024-11-27 15:38 | Outpatient (BNVA) | payer MEDICARE, SELFPAY | DX: I10 Essential (primary) hypertension (principal); I65.22 Occlusion and stenosis of left carotid artery; E11.9 Type 2 diabetes mellitus without complications; E66.9 Obesity, unspecified; Z68.37 Body mass index [BMI] 37.0-37.9, adult; I63.9 Cerebral infarction, unspecified; D64.9 Anemia, unspecified; Z71.3 Dietary counseling and surveillance | CPT/HCPCS: 99212 ==

== ENCOUNTER 2024-11-27 21:05 | Inpatient (IN) | payer MEDICARE, SELFPAY ==
--- NOTE | ~2024-11-27 | XR_ITS ---
EXAMINATION: XR HIP, RIGHT CLINICAL INFORMATION: R hip pain on movement COMPARISON: None available. Correlation made with CT abdomen and pelvis 11/27/2024. TECHNIQUE: Two views of the right hip. FINDINGS: Cortical and trabecular sclerosis and thickening involving the right hemipelvis suggestive of Paget's disease. No fracture, dislocation, or suspicious focal bone lesion. Normal right hip alignment. Mild changes of osteoarthritis in the right hip joint. Femoral head has normal contour without evidence of AVN. Enthesopathic spurring of the right greater trochanter. No soft tissue abnormalities. XR/XR hip RT min 2V IMPRESSION: 1. No acute bony abnormality of the right hip. 2. Appearance of the right hemipelvis in keeping with Paget's disease of bone. 3. Mild osteoarthrosis of the right hip joint. 4. Mild enthesopathic spurring of the right greater trochanter. Electronically signed by: Avery Byrnes MD 11/29/2024 10:46 AM EDT
--- NOTE | ~2024-11-27 | CT_ITS ---
CLINICAL HISTORY: [facility] CT abdomen and pelvis with and without contrast Comparison: None provided Findings: The lung bases are clear. Subcentimeter bilateral mid renal cysts. No urolithiasis. Hypodense liver. No lesions. Cholecystectomy. Abdominal solid organs otherwise unremarkable. No bowel obstruction, pneumoperitoneum, or pneumatosis. The appendix is not identified. Mild distal colonic diverticulosis without diverticulitis. Hysterectomy. Ovaries are not identified. L4-5 posterior stabilization hardware. L4-S1 interbody grafts and posterior decompression. The right hemipelvis is pagetoid in appearance. No fractures. IMPRESSION: 1. No active GI bleed. 2. Hepatic steatosis. 3. Additional nonacute findings as above. This document has been electronically signed by: Ally Vazquez MD on 11/28/2024 01:09:06
[2024-11-27 21:20] VITALS: BP 141/50; PULSE 82; RESP 20; TEMP 36.2; O2SAT 95; BMI 37.0
[2024-11-27 21:35] LABS: MANUAL DIFF FLAG NO
[2024-11-27 21:41] LABS: Hematocrit 33.7 % (37.0-47.0); Hemoglobin 10.2 g/dl (12.0-16.0); Imm Gran Abs Auto 0.07 X10*3/uL (0.00-0.03); Imm Gran Pct Auto 0.5 % (0.0-0.4); Lymphocytes Absolute Auto 1.7 X10*3/uL (1.2-4.9); Mean Corpuscular HGB Conc 30.3 g/dl (31.0-35.0); Mean Corpuscular Hemoglobin 21.2 pg (27.0-33.0); Mean Corpuscular Volume 69.9 fL (80.0-98.0); NRBC Abs Auto 0.000 X10*3/uL (0.0-0.012); NRBC Pct Auto 0.0 /100WBC (0.0-0.2); Platelet Count 480 X10*3/uL (160-400); Red Blood Count 4.82 X10*6/uL (4.20-5.50); White Blood Count 14.7 X10*3/uL (4.8-10.8)
[2024-11-27 21:48] LABS: INTERNATIONAL NORM RATIO 1.3 (0.9-1.1); Prothrombin Time 14.6 SEC (10.9-12.4)
[2024-11-27 21:52] LABS: Alanine Aminotransferase 18 U/L (0-31); Albumin Level 4.3 g/dL (3.5-5.0); Alkaline Phosphatase 80 U/L (39-117); Anion Gap 13 (12-20); Aspartate Amino Transferase 20 U/L (5-31); Blood Urea Nitrogen 22 mg/dL (9-16); Calcium 9.5 mg/dL (8.4-10.2); Carbon Dioxide 24 mmol/L (22-29); Chloride 109 mmol/L (96-108); Creatinine Clr Calc Pharmacy 42.9; Estimated Glomerular Filt Rate 50; Potassium 4.6 mmol/L (3.3-5.1); Sodium 141 mmol/L (135-145); Total Protein 7.2 g/dL (6.5-8.0)
[2024-11-27 23:42] LABS: OBS1 POSITIVE (NEGATIVE)
[2024-11-27 23:43] LABS: OBS Int Ctl Valid YES
[2024-11-27 23:43] LABS: Hematocrit 31.8 % (37.0-47.0); Hemoglobin 9.9 g/dl (12.0-16.0)
[2024-11-27] MEDS: iohexoL 350 MG/ML 100 ML INFUS..BTL 80 ML IV (23:57)
--- NOTE | 2024-11-28 | ECG_ITS ---
Test Reason : chest pain Blood Pressure : */* mmHG Vent. Rate : 135 BPM Atrial Rate : * BPM P-R Int : * ms QRS Dur : 124 ms QT Int : 356 ms P-R-T Axes : * 108 10 degrees QTcB Int : 534 ms Atrial fibrillation with rapid ventricular response Right bundle branch block Cannot rule out Inferior infarct , age undetermined Abnormal ECG When compared to the previous EKG of Afib present Referred By: Speedy Skaggs Electronically Signed By: Gabe Elizondo
--- NOTE | 2024-11-28 00:14 | ED.GENADULT ---
HPI - General Adult General Chief complaint: GI Bleed Stated complaint: lot of bleeding from rectom Time Seen by Provider: 11/27/24 22:42 Source: patient Limitations: no limitations History of Present Illness ED Provider: Brenda David PA-C HPI narrative: 79-year-old female with a history of prior GI bleed, iron deficiency anemia on iron supplementation, hypertension, diabetes, hyperlipidemia, GERD, prior CVA without residual deficit who recently resumed eliquis, arthritis with chronic back pain, anxiety and depression presents with bright red blood per rectum that began this evening. Thus far patient has had multiple large volume bloody bowel movements, 5 in total. Patient has had episodes here while waiting to be assessed. Denies chest pain, shortness of breath, dizzy or lightheadedness. Denies abdominal pain, nausea, vomiting or fever. Related Data Home Medications ?Medication ?Instructions ?Recorded ?Confirmed alpha lipoic acid 100 mg capsule 100 mg PO DAILY 11/02/22 11/27/24 calcium citrate 630 mg PO DAILY 11/02/22 11/27/24 cholecalciferol (vitamin D3) 25 25 mcg PO DAILY 11/02/22 11/27/24 mcg (1,000 unit) capsule multivitamin 1 tab PO DAILY 11/02/22 11/27/24 methylcellulose (laxative) 500 mg 500 mg PO DAILY 08/07/24 11/27/24 tablet (Citrucel) pantoprazole 20 mg tablet,delayed 20 mg PO QPM 08/07/24 11/27/24 release Previous Rx's ?Medication ?Instructions ?Recorded citalopram 20 mg tablet 20 mg PO BEDTIME #90 tabs 10/15/24 rosuvastatin 5 mg tablet 5 mg PO DAILY #30 tabs 10/24/24 cetirizine 10 mg tablet (All Day 10 mg PO DAILY #90 tabs 10/25/24 Allergy (cetirizine)) empagliflozin 10 mg tablet 10 mg PO DAILY #90 tabs 10/25/24 (Jardiance) metoprolol tartrate 50 mg tablet 75 mg (1.5 x 50 mg) PO BID 30 days 11/12/24 #90 tabs bisacodyl 5 mg tablet,delayed 10 mg (2 x 5 mg) PO ONCE 11/13/24 release (Dulcolax (bisacodyl)) colonoscopy prep 1 day #2 tabs polyethylene glycol 3350 17 238 g PO ONCE colonoscopy prep 1 11/13/24 gram/dose oral powder (Miralax) day #238 grams ferrous sulfate 220 mg (44 mg 220 mg (5 mL) PO DAILY #473 mL 11/26/24 iron)/5 mL oral solution ascorbate calcium (vitamin C) 500 500 mg PO DAILY #90 tabs 11/27/24 mg tablet blood sugar diagnostic (Freestyle 1 strip miscellaneous TID for 11/27/24 [employer] strips) diabetes mellitus #50 ea blood-glucose meter (Freestyle #1 ea 11/27/24 [employer] meter) lancets 28 gauge (FreeStyle #100 ea 11/27/24 Lancets) Allergies Allergy/AdvReac Type Severity Reaction Status Date / Time codeine AdvReac Intermediate seizure Verified 11/27/24 21:22 oxycodone (From Percocet) AdvReac Intermediate Nausea and Verified 11/27/24 21:22 Vomiting Review of Systems Review of Systems: Yes all other systems are reviewed and are negative Constitutional: Constitutional: Denies fatigue and Denies fever(s) ENT: Denies dizziness Cardiovascular: Cardiovascular: Denies chest pain and Denies dyspnea Respiratory: Respiratory: Denies dyspnea Gastrointestinal: Gastrointestinal: Denies abdominal pain, Reports hematochezia, Denies constipation, Denies diarrhea, Reports loose stools, Denies nausea and Denies vomiting Neurologic: Denies dizziness Endocrine: Endocrine: Denies fatigue PMF Past Medical History Attestation statement: The following information was validated with the patient. Medical History IBS (irritable bowel syndrome) Allergies Urticaria Dyslipidemia Type 2 diabetes mellitus without complication, without long-term current use of insulin Hearing impairment History of adenomatous polyp of colon Lumbar back pain with radiculopathy affecting left lower extremity Obesity (BMI 30-39.9) Paget's disease of the bone Osteopenia GERD (gastroesophageal reflux disease) Impaired fasting glucose Anxiety and depression Essential hypertension Surgical History History of back surgery Hx of LASIK Hx of left cataract extraction Hx of tubal ligation H/O colonoscopy History of partial hysterectomy History of appendectomy History of cholecystectomy H/O breast surgery History of lumbar discectomy Social History Social History Household Members: None Housing: House Are you a primary care mgr to a significant other at home: No Do you presently have visiting nurse or other home services: No Alcohol intake: never Patient Tobacco Use Status: Former Tobacco user Smoked in Last 30 Days: No e-Cigarette/Vaping Use: Never Used Second Hand Smoke Exposure: Yes Use of substances other than those prescribed or required for medical reasons: No Advance Directives: Yes Advance Directives on File: Yes Advance Directives Date on File: 11/02/22 service: No Current occupational status: retired Cognitive needs: No Hearing needs: No Vision needs: Yes (Reading glasses) Physical Exam ED Vital Signs: Vital Signs - 24 hr 11/27/24 21:20 Temperature 97.1 F Pulse Rate 82 Respiratory Rate 20 Blood Pressure 141/50 H Pulse Oximetry 95 Oxygen Delivery Method Room Air BMI result Body Mass Index 37.0 Const Other: Alert well-appearing Orientation/consciousness: patient oriented x3 Resp Effort & Inspection: normal respiratory effort Cardio Other: Normal peripheral perfusion GI Other: Is soft, nondistended nontender, obese no guarding no melena, dark red blood per rectum, a scant amount noted, guaiac positive Skin Other: Warm dry no rash Neuro General: patient oriented x3, gait normal, no focal motor deficits and CN's II-XI intact bilaterally Psych Other: Cooperative Medications Administered Discontinued Medications Generic Name Dose Route Start Last Admin Trade Name Freq PRN Reason Stop Dose Admin Iohexol 80 ml 11/27/24 23:57 11/27/24 23:57 Iohexol 350 Mg/Ml 100 Ml Infus..Btl IV 11/27/24 23:58 80 ml ONCE ONE Administration Medical Decision Making Medical Decision Making MDM Narrative: 79-year-old female with a history of prior GI bleed, iron deficiency anemia on iron supplementation, hypertension, diabetes, hyperlipidemia, GERD, prior CVA without residual deficit who recently resumed eliquis, arthritis with chronic back pain, anxiety and depression presents with bright red blood per rectum that began this evening. Thus far patient has had multiple large volume bloody bowel movements, 5 in total. Patient has had episodes here while waiting to be assessed. Denies chest pain, shortness of breath, dizzy or lightheadedness. Denies abdominal pain, nausea, vomiting or fever. The patient just resumed Eliquis for Problem: Prior GI bleed, iron deficiency anemia, age, diabetes History: Per patient I have considered the following differential diagnoses: Diverticulosis, a bleeding polyp, internal hemorrhoids, colitis, diverticulitis Plan: Patient has evidence of bleeding, we will obtain a CT scan abdomen and pelvis GI protocol, screening labs already obtained, I am repeating her H&H. Guaiac sent I have independently reviewed the following tests: Labs: Slight leukocytosis, stable anemia, although H&H did drop,, from 1st blood draw,, 10.2 and 33.7, now 9.9 and 31.8, no electrolyte abnormality CT abdomen and pelvis GI protocol: Lab Data 11/27/24 23:25 11/27/24 21:31 Labs: Lab Results 11/27/24 11/27/24 11/27/24 Range/Units 21:31 21:33 23:23 WBC 14.7 H (4.8-10.8) X10*3/uL RBC 4.82 (4.20-5.50) X10*6/uL Hgb 10.2 L (12.0-16.0) g/dl Hct 33.7 L (37.0-47.0) % MCV 69.9 L (80.0-98.0) fL MCH 21.2 L (27.0-33.0) pg MCHC 30.3 L (31.0-35.0) g/dl RDW 20.7 H (11.0-16.0) % Plt Count 480 H D (160-400) X10*3/uL MPV 10.2 (9.4-12.3) fL Immature Gran % (Auto) 0.5 H (0.0-0.4) % Neut % (Auto) 81.3 H (45-73) % Lymph % (Auto) 11.2 L (20-40) % Armstrong % (Auto) 5.9 (2-11) % Eos % (Auto) 0.6 (0-4) % Baso % (Auto) 0.5 (0-2) % Lymph # (Auto) 1.7 (1.2-4.9) X10*3/uL Armstrong # (Auto) 0.9 (0.1-1.2) X10*3/uL Eos # (Auto) 0.1 (0.0-0.4) X10*3/uL Baso # (Auto) 0.1 (0.0-0.2) X10*3/uL Abs Immat Gran (auto) 0.07 H (0.00-0.03) X10*3/uL Absolute Neuts (auto) 12.0 H (2.0-8.3) x10*3/uL Absolute Nucleated RBC 0.000 (0.0-0.012) X10*3/uL Nucleated RBC % (auto) 0.0 (0.0-0.2) /100WBC PT 14.6 H D (10.9-12.4) SEC INR 1.3 H (0.9-1.1) Sodium 141 (135-145) mmol/L Potassium 4.6 (3.3-5.1) mmol/L Chloride 109 H (96-108) mmol/L Carbon Dioxide 24 (22-29) mmol/L Anion Gap 13 (12-20) BUN 22 H (9-16) mg/dL Creatinine 1.06 (0.5-1.4) mg/dL Estim Creat Clear Calc 42.9 Estimated GFR 50 Fasting Glucose 151 H (60-99) mg/dL Calcium 9.5 (8.4-10.2) mg/dL Total Bilirubin 0.5 (0.0-1.0) mg/dL AST 20 (5-31) U/L ALT 18 (0-31) U/L Alkaline Phosphatase 80 (39-117) U/L Total Protein 7.2 (6.5-8.0) g/dL Albumin 4.3 (3.5-5.0) g/dL Stool Occult Blood POSITIVE (NEGATIVE) Blood Type A Negative Antibody Screen NEGATIVE 11/27/24 Range/Units 23:25 WBC (4.8-10.8) X10*3/uL RBC (4.20-5.50) X10*6/uL Hgb 9.9 L (12.0-16.0) g/dl Hct 31.8 L (37.0-47.0) % MCV (80.0-98.0) fL MCH (27.0-33.0) pg MCHC (31.0-35.0) g/dl RDW (11.0-16.0) % Plt Count (160-400) X10*3/uL MPV (9.4-12.3) fL Immature Gran % (Auto) (0.0-0.4) % Neut % (Auto) (45-73) % Lymph % (Auto) (20-40) % Armstrong % (Auto) (2-11) % Eos % (Auto) (0-4) % Baso % (Auto) (0-2) % Lymph # (Auto) (1.2-4.9) X10*3/uL Armstrong # (Auto) (0.1-1.2) X10*3/uL Eos # (Auto) (0.0-0.4) X10*3/uL Baso # (Auto) (0.0-0.2) X10*3/uL Abs Immat Gran (auto) (0.00-0.03) X10*3/uL Absolute Neuts (auto) (2.0-8.3) x10*3/uL Absolute Nucleated RBC (0.0-0.012) X10*3/uL Nucleated RBC % (auto) (0.0-0.2) /100WBC PT (10.9-12.4) SEC INR (0.9-1.1) Sodium (135-145) mmol/L Potassium (3.3-5.1) mmol/L Chloride (96-108) mmol/L Carbon Dioxide (22-29) mmol/L Anion Gap (12-20) BUN (9-16) mg/dL Creatinine (0.5-1.4) mg/dL Estim Creat Clear Calc Estimated GFR Fasting Glucose (60-99) mg/dL Calcium (8.4-10.2) mg/dL Total Bilirubin (0.0-1.0) mg/dL AST (5-31) U/L ALT (0-31) U/L Alkaline Phosphatase (39-117) U/L Total Protein (6.5-8.0) g/dL Albumin (3.5-5.0) g/dL Stool Occult Blood (NEGATIVE) Blood Type Antibody Screen Discharge Plan Discharge Clinical Impression: Acute lower GI bleeding Patient Disposition: Admitted As Inpatient Print Language: Slovak
--- NOTE | 2024-11-28 00:26 | P.HPHOSP_ITS ---
History of Present Illness Date of Service: 11/28/24 Attending physician on admission: Speedy Skaggs Chief Complaint: rectal bleeding Patient is a 79-year-old female with history of previous GI bleed, IBS-D, hypertension, hyperlipidemia, non insulin dependent diabetes, iron deficiency anemia, GERD, prior CVA currently on Eliquis, chronic lumbar spondylolisthesis and recent 2nd surgery with chronic right footdrop, osteoarthritis and chronic back pain, hysterectomy, cholecystectomy, appendectomy, anxiety and depression presents to the emergency department earlier today with red blood per rectum that began earlier in the evening. Since being in the ED patient has had 5 additional bloody stool episodes. Her stool for occult is positive. Patient's H&H originally 10.2 and 33.7 is now 9.9 and 31.8 with stable hemodynamics. Type and screen has been drawn. Patient has not required any transfusion. Patient has been started on Protonix IV. CT scan is currently pending. Eliquis has been held. Pt states she just had colonoscopy and EGD this past Monday. Pt was told she has diverticulosis and the EGD was negative. Pt believes she has a large hemorrhoid but is not sure if this is causing her bleeding issues. Pt is having only nausea, but no abdominal pain. Skin is pale. Results of EGD 08/21/2024 Larynx:normal Esophagus: GE junction at 36 cm, diaphragm hiatus at 40 cm, schatzki ring noted with 4 cm fixed hiatal hernia Stomach: atrophic gastritis. Biopsies were obtained. Grade 2 flap valve on retroflexed examination of the cardia. Duodenum: Normal bulb and descending duodenum, bx taken Results of Colonoscopy 08/21/2024: Terminal Ileum-normal Cecum: a few conglomerations of AVM noted in the cecum from 8-10 mm in diameter. these were lifted with eleview and then ablated using APC with hemospray then applied. Ascending Colon: normal Transverse Colon -normal Descending Colon:normal Sigmoid Colon: mild to moderate diverticulosis Rectum: Retroflexion with small internal hemorrhoids, grade I Anorectum - normal CT scan negative for GIB, noted diverticulosis. Pt also just finished cardiac exercise specialist after 29 days and was told by provider there have been runs of AFIB. Plan is to consult Gastroenterology, monitor patient overnight. Patient will remain NPO. Review of Systems 2 Review of Systems: Patient denies any chest pain, shortness of breath at rest but is reporting some mild abdominal discomfort. Patient currently denies vomiting but is having mild nausea. [facility] Medical History IBS (irritable bowel syndrome) Allergies Urticaria Dyslipidemia Type 2 diabetes mellitus without complication, without long-term current use of insulin Hearing impairment History of adenomatous polyp of colon Lumbar back pain with radiculopathy affecting left lower extremity Obesity (BMI 30-39.9) Paget's disease of the bone Osteopenia GERD (gastroesophageal reflux disease) Impaired fasting glucose Anxiety and depression Essential hypertension Cognitive capacity: Alert and orientated Functional capacity: uses cane/walker Patient : No Surgical History History of back surgery Hx of LASIK Hx of left cataract extraction Hx of tubal ligation H/O colonoscopy History of partial hysterectomy History of appendectomy History of cholecystectomy H/O breast surgery History of lumbar discectomy Social History Household Members: None Housing: House Are you a primary career technical education teacher to a significant other at home: No Do you presently have visiting nurse or other home services: No Alcohol intake: never Patient Tobacco Use Status: Former Tobacco user Smoked in Last 30 Days: No e-Cigarette/Vaping Use: Never Used Second Hand Smoke Exposure: Yes Use of substances other than those prescribed or required for medical reasons: No Advance Directives: Yes Advance Directives on File: Yes Advance Directives Date on File: 11/02/22 Patient : No service: No Current occupational status: retired Cognitive needs: No Hearing needs: No Vision needs: Yes (Reading glasses) Ebola Risk: Travel/Contact With Anyone From Affected Area/s: No Has Patient Experienced Ebola Symptoms: No Meds Allergies Allergy/AdvReac Type Severity Reaction Status Date / Time codeine AdvReac Intermediate seizure Verified 11/27/24 21:22 oxycodone (From Percocet) AdvReac Intermediate Nausea and Verified 11/27/24 21:22 Vomiting Active Medications: Current Medications Acetaminophen (Acetaminophen 325 Mg Tablet) 650 mg PO Q6H PRN PRN Reason: Pain, Mild 1-3,fever,headache Albuterol/Ipratropium (Albuterol/Iprat 2.5/0.5mg 3 Ml Ampul.Neb) 3 ml INHALE Q4H PRN PRN Reason: Shortness of Breath/Wheezing Calcium Carbonate (Calcium Carbonate 750 Mg Tab.Chew) 750 mg PO Q4H PRN PRN Reason: Heartburn Magnesium Hydroxide (Milk Of Magnesia 30 Ml Oral.Susp) 30 ml PO DAILY PRN PRN Reason: Constipation Melatonin (Melatonin 3 Mg Tablet) 6 mg PO BEDTIME PRN PRN Reason: Insomnia Ondansetron HCl (Ondansetron Hcl 4 Mg/2 Ml Vial) 4 mg IVPUSH Q8H PRN PRN Reason: Nausea and Vomiting Sodium Chloride (0.9 % Sodium Chloride Flush 3 Ml Syringe) 3 [facility] Medications ?Medication ?Instructions ?Recorded ?Confirmed ?Last Taken ?Type alpha lipoic acid 100 mg capsule 100 mg PO DAILY 11/0211/27/24 10/02/24 History calcium citrate 630 mg PO DAILY 11/02/2202/1310/02/24 History cholecalciferol (vitamin D3) 25 25 mcg PO DAILY 11/27/24 10/02/24 History mcg (1,000 unit) capsule multivitamin 1 tab PO DAILY 11/02/22/02/1310/02/24 History methylcellulose (laxative) 500 mg 500 mg PO DAILY 07/2011/27/24 11/08/24 History tablet (Citrucel) pantoprazole 20 mg tablet,delayed 20 mg PO QPM 5 11/27/24 10/02/24 History release Physical Exam 2 Vital Signs and Narrative: Vital Signs: Last Vital Signs Temp 97.1 F 11/27/24 21:20 Pulse 82 11/27/24 21:20 Resp 20 11/27/24 21:20 BP 141/50 H 11/27/24 21:20 Pulse Ox 95 11/27/24 21:20 O2 Del Method Room Air 11/27/24 21:20 BMI result Body Mass Index 37.0 Alert and orientated X3, able to give good history. Neuro: CN II-X11 intact, no deficits, visual acuity intact EYES: PERRLA, EOM intact, sclera nonicteric, conjunctiva pale ENT: hearing intact, no issues with swallowing, uvula midline, lips moist, nares patent no epistaxis Cardiac: S1 S2 RRR, no murmur, no JVD, no edema in Lower ext Pulmonary: lungs clear to auscultation B Abdominal: BS active in all 4 quadrants, no guarding, tenderness, rebounding MSK: strength 5/5 upper and lower extremities : no CVA tenderness no bladder distension Extremities: no edema in lower extremities, PT and DP pulses palpable +2, mild R foot drop Psych: mood stable, judgement and insight good Skin: intact, no report of open wounds Results Labs 11/27/24 23:25 11/27/24 21:31 Labs: Laboratory Results - last 24 hr 11/27/24 11/27/24 11/27/24 21:31 21:33 23:23 MCV 69.9 L MCH 21.2 L MCHC 30.3 L RDW 20.7 H Plt Count 480 H D MPV 10.2 Immature Gran % (Auto) 0.5 H Neut % (Auto) 81.3 H Lymph % (Auto) 11.2 L [place]idan % (Auto) 5.9 Eos % (Auto) 0.6 Baso % (Auto) 0.5 Lymph # (Auto) 1.7 [place]idan # (Auto) 0.9 Eos # (Auto) 0.1 Baso # (Auto) 0.1 Abs Immat Gran (auto) 0.07 H Absolute Neuts (auto) 12.0 H Absolute Nucleated RBC 0.000 Nucleated RBC % (auto) 0.0 PT 14.6 H D INR 1.3 H Anion Gap 13 Estim Creat Clear Calc 42.9 Estimated GFR 50 Fasting Glucose 151 H Calcium 9.5 Total Bilirubin 0.5 AST 20 ALT 18 Alkaline Phosphatase 80 Total Protein 7.2 Albumin 4.3 Stool Occult Blood POSITIVE Blood Type A Negative Antibody Screen NEGATIVE Imaging Radiologist's Impressions: Results of EGD 08/21/2024 Larynx:normal Esophagus: GE junction at 36 cm, diaphragm hiatus at 40 cm, schatzki ring noted with 4 cm fixed hiatal hernia Stomach: atrophic gastritis. Biopsies were obtained. Grade 2 flap valve on retroflexed examination of the cardia. Duodenum: Normal bulb and descending duodenum, bx taken Results of Colonoscopy 08/21/2024: Terminal Ileum-normal Cecum: a few conglomerations of AVM noted in the cecum from 8-10 mm in diameter. these were lifted with eleview and then ablated using APC with hemospray then applied. Ascending Colon: normal Transverse Colon -normal Descending Colon:normal Sigmoid Colon: mild to moderate diverticulosis Rectum: Retroflexion with small internal hemorrhoids, grade I Anorectum - normal CT ABD Findings: The lung bases are clear. Subcentimeter bilateral mid renal cysts. No urolithiasis. Hypodense liver. No lesions. Cholecystectomy. Abdominal solid organs otherwise unremarkable. No bowel obstruction, pneumoperitoneum, or pneumatosis. The appendix is not identified. Mild distal colonic diverticulosis without diverticulitis. Hysterectomy. Ovaries are not identified. L4-5 posterior stabilization hardware. L4-S1 interbody grafts and posterior decompression. The right hemipelvis is pagetoid in appearance. No fractures. IMPRESSION: 1. No active GI bleed. 2. Hepatic steatosis. 3. Additional nonacute findings as above. Assessment and Plan (1) GI bleed: Qualifiers: GI bleed type/associated pathology: unspecified gastrointestinal hemorrhage type Qualified Code(s): K92.2 - Gastrointestinal hemorrhage, unspecified Status: Acute Plan Patient is a 79-year-old female with history of previous GI bleed, hypertension, hyperlipidemia, diabetes, iron deficiency anemia, GERD, Carotid Stenosis, prior CVA with no current residual deficits, osteoarthritis and chronic back pain, anxiety and depression is being admitted for evidence of GI bleed. Patient currently is on Eliquis for history of stroke. Hemodynamics stable and patient does not require transfusion at this time or ICU evaluation. Results of EGD 08/21/2024 Larynx:normal Esophagus: GE junction at 36 cm, diaphragm hiatus at 40 cm, schatzki ring noted with 4 cm fixed hiatal hernia Stomach: atrophic gastritis. Biopsies were obtained. Grade 2 flap valve on retroflexed examination of the cardia. Duodenum: Normal bulb and descending duodenum, bx taken Results of Colonoscopy 08/21/2024: Terminal Ileum-normal Cecum: a few conglomerations of AVM noted in the cecum from 8-10 mm in diameter. these were lifted with eleview and then ablated using APC with hemospray then applied. Ascending Colon: normal Transverse Colon -normal Descending Colon:normal Sigmoid Colon: mild to moderate diverticulosis Rectum: Retroflexion with small internal hemorrhoids, grade I Anorectum - normal GI bleed - Recent colonoscopy and EGD MonNovember 20 2024 Monitor H&H q.4 hours whie rectal bleeding continues VS Q4, currently hemodynamically stable Telemetry Hold Eliquis, no aspirin no Lovenox Type and screen completed, blood consent signed NPO IV fluids as needed GI consultation placed CT negative for acute GIB, noted diverticulosis no diverticulitis Diabetes NPO currently Sliding scale insulin for NPO status S/p completion of heart monitor as outpatient (29 days total) Pt told she has had runs of AFIB, new onset Pt currently NSR, will keep pt on telemetry MG stable, checking TSH DVT prophylaxis: Contraindicated due to GI bleed PPI prophylaxis: Protonix IV Med rec kidney Full code status Quality Stroke Does the patient have a stroke diagnosis?: No Reason for No Anti-thrombotic by Day Two: Contraindicated VTE Prior VTE?: No VTE Risk Level:: Medical - moderate - high VTE Device Contraindication: N/A - Device Ordered VTE Drug Contraindication: Treatment Not Indicated
[2024-11-28 04:41] LABS: Glucose, Whole Blood 144 mg/dL (60-115)
[2024-11-28 06:04] VITALS: BP 142/52; PULSE 75; RESP 20; TEMP 36.6; O2SAT 96
[2024-11-28 06:14] LABS: Glucose, Whole Blood 120 mg/dL (60-115)
[2024-11-28 06:29] LABS: MANUAL DIFF FLAG NO
[2024-11-28 06:46] LABS: Hematocrit 30.1 % (37.0-47.0); Hemoglobin 9.1 g/dl (12.0-16.0); Imm Gran Abs Auto 0.05 X10*3/uL (0.00-0.03); Imm Gran Pct Auto 0.4 % (0.0-0.4); Lymphocytes Absolute Auto 2.8 X10*3/uL (1.2-4.9); Mean Corpuscular HGB Conc 30.2 g/dl (31.0-35.0); Mean Corpuscular Hemoglobin 21.1 pg (27.0-33.0); Mean Corpuscular Volume 69.8 fL (80.0-98.0); NRBC Abs Auto 0.000 X10*3/uL (0.0-0.012); NRBC Pct Auto 0.0 /100WBC (0.0-0.2); Platelet Count 396 X10*3/uL (160-400); Red Blood Count 4.31 X10*6/uL (4.20-5.50); White Blood Count 11.2 X10*3/uL (4.8-10.8)
[2024-11-28 06:56] LABS: Alanine Aminotransferase 16 U/L (0-31); Albumin Level 3.9 g/dL (3.5-5.0); Alkaline Phosphatase 71 U/L (39-117); Anion Gap 10 (12-20); Aspartate Amino Transferase 19 U/L (5-31); Blood Urea Nitrogen 21 mg/dL (9-16); Calcium 9.1 mg/dL (8.4-10.2); Carbon Dioxide 24 mmol/L (22-29); Chloride 110 mmol/L (96-108); Creatinine Clr Calc Pharmacy 47.9; Estimated Glomerular Filt Rate 57; Potassium 4.2 mmol/L (3.3-5.1); Sodium 140 mmol/L (135-145); Total Protein 6.6 g/dL (6.5-8.0)
--- NOTE | 2024-11-28 08:02 | HO.PM.IMPN ---
Subjective Subjective Date of Service: 11/28/24 Interval History: Patient is bright red blood per rectum his resolved Patient reports that she resumed Eliquis 3 days ago and then she developed bright red blood per rectum, which was held on admission Tricia daughter was given update [phone] Review of Systems Review of Systems: Yes all other systems are reviewed and are negative Physical Exam Vital Signs: Vital Signs: Last Vital Signs Temp 97.9 F 11/28/24 06:04 Pulse 75 11/28/24 06:04 Resp 20 11/28/24 06:04 BP 142/52 H 11/28/24 06:04 Pulse Ox 96 11/28/24 06:04 O2 Del Method Room Air 11/28/24 06:04 BMI result Body Mass Index 37.0 Alert and orientated X3, able to give good history. Cardiac: S1 S2 RRR, no murmur, no JVD, no edema in Lower ext Pulmonary: lungs clear to auscultation , No R/R Abdominal: BS active in all 4 quadrants, no guarding, tenderness, rebounding MSK: strength 5/5 upper and lower extremities Extremities: no edema in lower extremities, PT and DP pulses palpable +2, mild R foot drop Psych: anxious mood, judgement and insight good Objective Data Active Medications Acetaminophen (Acetaminophen 325 Mg Tablet) 650 mg PO Q6H PRN PRN Reason: Pain, Mild 1-3,fever,headache Albuterol/Ipratropium (Albuterol/Iprat 2.5/0.5mg 3 Ml Ampul.Neb) 3 ml INHALE Q4H PRN PRN Reason: Shortness of Breath/Wheezing Calcium Carbonate (Calcium Carbonate 750 Mg Tab.Chew) 750 mg PO Q4H PRN PRN Reason: Heartburn Dextrose (Dextrose 50 % 25 Gm/50 Ml Syringe) 25 gm IVPUSH Q15M PRN; Protocol PRN Reason: per Hypoglycemia Standing Ord. Glucose (Glucose Gel 15 Gm Gel..Gram.) 15 gm PO Q15M PRN; Protocol PRN Reason: per Hypoglycemia Standing Ord. Insulin Human Lispro (Insulin Lispro 100 Unit/Ml 3 Ml Vial) 0 unit SUBCUT Q6H [facility]; Protocol Last Admin: 11/28/24 06:11 Dose: Not Given Documented By: JAVIER Non-Admin Reason: poc 120 Magnesium Hydroxide (Milk Of Magnesia 30 Ml Oral.Susp) 30 ml PO DAILY PRN PRN Reason: Constipation Melatonin (Melatonin 3 Mg Tablet) 6 mg PO BEDTIME PRN PRN Reason: Insomnia Morphine Sulfate (Morphine Sulfate 2 Mg/Ml Cartridge) 1 mg IVPUSH Q4H PRN; Protocol PRN Reason: Pain, Severe (Pain Scale 7-10) Ondansetron HCl (Ondansetron Hcl 4 Mg/2 Ml Vial) 4 mg IVPUSH Q8H PRN PRN Reason: Nausea and Vomiting Pantoprazole Sodium (Pantoprazole Sodium 40 Mg/10 Ml Vial) 40 mg IVPUSH BID@0630,1630 [facility] Last Admin: 11/28/24 06:17 Dose: 40 mg Documented By: JAVIER Sodium Chloride (0.9 % Sodium Chloride Flush 3 Ml Syringe) 3 ml IVFLUSH QSHIFT [facility] Labs 11/28/24 05:56 11/28/24 05:56 Labs: Laboratory Results - last 24 hr 11/27/24 11/27/24 11/27/24 21:31 21:33 23:23 MCV 69.9 L MCH 21.2 L MCHC 30.3 L RDW 20.7 H Plt Count 480 H D MPV 10.2 Immature Gran % (Auto) 0.5 H Neut % (Auto) 81.3 H Lymph % (Auto) 11.2 L [place] % (Auto) 5.9 Eos % (Auto) 0.6 Baso % (Auto) 0.5 Lymph # (Auto) 1.7 [place] # (Auto) 0.9 Eos # (Auto) 0.1 Baso # (Auto) 0.1 Abs Immat Gran (auto) 0.07 H Absolute Neuts (auto) 12.0 H Absolute Nucleated RBC 0.000 Nucleated RBC % (auto) 0.0 PT 14.6 H D INR 1.3 H Anion Gap 13 Estim Creat Clear Calc 42.9 Estimated GFR 50 POC Glucose Random Glucose Fasting Glucose 151 H Calcium 9.5 Total Bilirubin 0.5 AST 20 ALT 18 Alkaline Phosphatase 80 Total Protein 7.2 Albumin 4.3 Stool Occult Blood POSITIVE Blood Type A Negative Antibody Screen NEGATIVE 11/28/24 11/28/24 11/28/24 01:17 05:56 06:10 MCV 69.8 L MCH 21.1 L MCHC 30.2 L RDW 20.8 H Plt Count 396 MPV 10.2 Immature Gran % (Auto) 0.4 Neut % (Auto) 63.5 Lymph % (Auto) 25.2 [place] % (Auto) 9.7 Eos % (Auto) 0.6 Baso % (Auto) 0.6 Lymph # (Auto) 2.8 [place] # (Auto) 1.1 Eos # (Auto) 0.1 Baso # (Auto) 0.1 Abs Immat Gran (auto) 0.05 H Absolute Neuts (auto) 7.1 Absolute Nucleated RBC 0.000 Nucleated RBC % (auto) 0.0 PT INR Anion Gap 10 L Estim Creat Clear Calc 47.9 Estimated GFR 57 POC Glucose 144 H 120 H Random Glucose 115 Fasting Glucose Calcium 9.1 Total Bilirubin 0.4 AST 19 ALT 16 Alkaline Phosphatase 71 Total Protein 6.6 Albumin 3.9 Stool Occult Blood Blood Type Antibody Screen Assessment and Plan (1) GI bleed: Status: Acute Plan Patient is a 79-year-old female with history of previous GI bleed, hypertension, hyperlipidemia, diabetes, iron deficiency anemia, GERD, Carotid Stenosis, prior CVA with no current residual deficits, osteoarthritis and chronic back pain, anxiety and depression is being admitted for evidence of GI bleed. Patient currently is on Eliquis for history of stroke. Hemodynamics stable but downtrending Hb from 10-->9. Eliquis held on admission , now resolved BRBPR and hence will rechallenge her with Eliquis given high stroke risk vs HASBLED score. Bright red blood per rectum Given that the patient has bright red blood per rectum soon after in the re-initiation of Eliquis (3 days prior to her episodes of bright red blood per rectum), and imaging not suggesting any acute bleed, and mild but significant drop in hemoglobin from 10 to 9, patient ablated APC with hemo spray in the AVMs in the cecum on colonoscopy just done is suggestive of remnant bleed/friable diverticulitis. Given that patient is hemodynamically stable, I will reinitiate Eliquis, as we need to challenge her with Eliquis and examined her hemoglobin, at this time I do not believe that a GI consult is warranted as she does not have any more episodes of bright red blood per rectum upon holding her Eliquis and she herself reported that she had a formed brown stool without any blood streaking or mixed stool. Her daughter Tricia was updated over the phone. Is aware of the plan. And if she continues to bleed, we need to have a multidisciplinary conversation about risks of bleeding versus stroke as the patient is a high stroke risk and continues to bleed upon re-initiation of anticoagulation. Results of EGD 08/21/2024 Larynx:normal Esophagus: GE junction at 36 cm, diaphragm hiatus at 40 cm, schatzki ring noted with 4 cm fixed hiatal hernia Stomach: atrophic gastritis. Biopsies were obtained. Grade 2 flap valve on retroflexed examination of the cardia. Duodenum: Normal bulb and descending duodenum, bx taken Results of Colonoscopy 08/21/2024: Terminal Ileum-normal Cecum: a few conglomerations of AVM noted in the cecum from 8-10 mm in diameter. these were lifted with eleview and then ablated using APC with hemospray then applied. Ascending Colon: normal Transverse Colon -normal Descending Colon:normal Sigmoid Colon: mild to moderate diverticulosis Rectum: Retroflexion with small internal hemorrhoids, grade I Anorectum - normal GI bleed - Recent colonoscopy and EGD MonNovember 20 2024 Monitor H&H q.4 hours whie rectal bleeding continues VS Q4, currently hemodynamically stable Telemetry Hold Eliquis, no aspirin no Lovenox Type and screen completed, blood consent signed NPO IV fluids as needed GI consultation placed CT negative for acute GIB, noted diverticulosis no diverticulitis Diabetes Re-initiate diabetic diet diet Insulin sliding scale S/p completion of heart monitor as outpatient (29 days total) Pt told she has had runs of AFIB, new onset Pt currently NSR, will keep pt on telemetry MG stable, checking TSH DVT prophylaxis: Home Eliquis PPI prophylaxis: Protonix IV Full code status This note is constructed using voice recognition software. While every effort has been made to ensure accuracy, washroom cleaner errors may have been included. Total time managing care of this patient today: 35 minutes. Quality Stroke Does the patient have a stroke diagnosis?: No Reason for No Anti-thrombotic by Day Two: Contraindicated VTE Prior VTE?: No VTE Risk Level:: Medical - moderate - high VTE Device Contraindication: N/A - Device Ordered VTE Drug Contraindication: Treatment Not Indicated
[2024-11-28] MEDS: 0.9 % Sodium Chloride Flush 3 ML SYRINGE IVFLUSH ×3 (09:00→21:22)
[2024-11-28 09:05] VITALS: BP 125/56; RESP 13; TEMP 36.4; O2SAT 96
--- NOTE | 2024-11-28 09:49 | PHA.MEDREC ---
Pharmacy Consult ? Medication Reconciliation Pharmacy has completed the medication reconciliation. Spoke with pt and she confirmed her medications. 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 Pt confirmed she started taking the Eliquis 5mg tab again Monday, ok'd by her Dr but states she started bleeding again yesterday and stopped it last night and is the reason why the pt is here again
--- NOTE | 2024-11-28 09:54 | PHA.MEDREC ---
Addendum entered by Gail Mireles RPh 11/28/24 10:12: reviewed by [facility] Original Note: Pharmacy Consult ? Medication Reconciliation Pharmacy has completed the medication reconciliation. Spoke with pt and she confirmed her medications. 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 Pt confirmed she started taking the Eliquis 5mg tab again Monday, after it being stopped pt last admission with us 11/09-11/10; ok'd by her Dr but states she started bleeding again yesterday and stopped it last night and is the reason why the pt is here today again.
--- NOTE | 2024-11-28 10:07 | PC.NURSE ---
Pt is calm, cooperative. RR even and unlabored. Denies SOB or CP
--- NOTE | 2024-11-28 11:46 | PC.NURSE ---
Patient's daughter Tricia called and request an update. Attending provided with call back phone number [phone]. Patient authorized us to provide updates to her daughter.
[2024-11-28 12:41] VITALS: BP 157/53; PULSE 78; RESP 20; TEMP 36.6; O2SAT 92
[2024-11-28 12:42] LABS: Glucose, Whole Blood 123 mg/dL (60-115)
[2024-11-28 15:27] VITALS: BP 142/66; PULSE 93; RESP 18; O2SAT 99
[2024-11-28 16:05] LABS: Glucose, Whole Blood 111 mg/dL (60-115)
[2024-11-28 18:00] VITALS: BMI 36.5; BMI 36.9
[2024-11-28 20:00] VITALS: BP 152/53; PULSE 117; RESP 18; TEMP 36.1; O2SAT 94
[2024-11-28 20:48] LABS: Glucose, Whole Blood 185 mg/dL (60-115)
[2024-11-28 21:26] LABS: Hematocrit 28.8 % (37.0-47.0); Hemoglobin 8.8 g/dl (12.0-16.0)
[2024-11-28 21:46] LABS: Troponin-I High Sensitivity 10.1 ng/L (<3.5-17.0)
--- NOTE | 2024-11-28 21:51 | PM.EVENT ---
Event Note Date of Service: 11/28/24 Event Note: As per nurse, patient with palpitations. Found to be tachycardic with irregularly irregular rhythm. EKG with AFib with RVR. Blood pressure okay. Will order Lopressor. Also obtaining echocardiogram, TSH pending. Patient is anticoagulated with Eliquis. Time Spent With Patient Time: Total time managing care of this patient today ____ minutes.
[2024-11-29] VITALS (7 sets, daily range): BP systolic 119–158; BP diastolic 53–84; PULSE 77–132; RESP 16–20; TEMP 36.4–37; O2SAT 92–96
--- NOTE | 2024-11-29 | ECG_ITS ---
Test Reason : AF with RVR >180 Blood Pressure : */* mmHG Vent. Rate : 88 BPM Atrial Rate : 88 BPM P-R Int : 164 ms QRS Dur : 100 ms QT Int : 408 ms P-R-T Axes : 40 89 44 degrees QTcB Int : 493 ms Normal sinus rhythm Incomplete right bundle branch block Prolonged QT Abnormal ECG When compared with ECG of 28-Nov-2024 21:20, Sinus rhythm has replaced Atrial fibrillation Vent. rate has decreased by 47 bpm Incomplete right bundle branch block has replaced Right bundle branch block Minimal criteria for Inferior infarct are no longer Present Referred By: Verenice Gardiner Electronically Signed By: Gabe Elizondo
--- NOTE | 2024-11-29 04:22 | PC.NURSE ---
At 2049, pt noted to be in SVT on the monitor, HR in the 190s. When RN entered room pt was found ambulating, asymptomatic, however when RN was examining her, she reported L chest tightness that went away within a minute. Provider notified, Labs ordred, EKG obtained x2, Iv Lopressor given x1. EKG showing afib w RVR. HR in the 110s-120s while at rest, HR spike when using bedside commode. Provider aware.
[2024-11-29 06:26] LABS: Glucose, Whole Blood 141 mg/dL (60-115)
[2024-11-29 06:26] LABS: Glucose, Whole Blood 108 mg/dL (60-115)
[2024-11-29 06:49] LABS: Appearance Urine Clear; Glucose Urine UA >=1000 mg/dL (Negative); PH 5.5 (5.0-9.0); Specific Gravity - Urine >= 1.030 (1.005-1.025); UMIC TRIGGER UA YES
[2024-11-29 06:52] LABS: INTERNATIONAL NORM RATIO 1.0 (0.9-1.1); Prothrombin Time 11.9 SEC (10.9-12.4)
[2024-11-29 06:56] LABS: Hematocrit 30.3 % (37.0-47.0); Hemoglobin 9.0 g/dl (12.0-16.0); Mean Corpuscular HGB Conc 29.7 g/dl (31.0-35.0); Mean Corpuscular Hemoglobin 20.9 pg (27.0-33.0); Mean Corpuscular Volume 70.5 fL (80.0-98.0); NRBC Abs Auto 0.000 X10*3/uL (0.0-0.012); NRBC Pct Auto 0.0 /100WBC (0.0-0.2); Platelet Count 383 X10*3/uL (160-400); Red Blood Count 4.30 X10*6/uL (4.20-5.50); White Blood Count 8.0 X10*3/uL (4.8-10.8)
--- NOTE | 2024-11-29 07:00 | CA_ITS ---
Transthoracic Echocardiogram Patient (Last, First, Middle): Yahaira Herring J Gender: Female Date of : 1945 Age: 79 Procedure Date: 11/29/2024 Procedure Type: Transthoracic Echocardiogram Location: [place] Height: 154.94 cm Weight: 87.54 kg BSA: 1.86 m2 Heart Rate: 76 bpm BP: 130 / 62 mmHg Beam Racker: SB Referring MD: Speedy Skaggs MD Symptoms: afib Study Quality: Adequate w contrast ECG Rhythm: Sinus Conclusions: - Normal left ventricular size and systolic function. There is mildly increased left ventricular wall thickness. The visually estimated ejection fraction is between 65-70%. - Elevated filling pressures. - Normal right ventricular cavity size and systolic function. Findings Procedure Information Contrast agent, definity, is being given per protocol without apparent complications. The quality of the study was technically difficult. The study quality is limited by patients body habitus. Left Ventricle Normal left ventricular size and systolic function. There is mildly increased left ventricular wall thickness. The visually estimated ejection fraction is between 65-70%. There is no evidence of regional wall motion abnormalities. Abnormal diastolic function is noted. Spectral Doppler is indicative of a pseudonormal filling pattern. Elevated filling pressures. Right Ventricle Normal right ventricular cavity size and systolic function. Atria The left atrium is normal in size. The right atrium was not well visualized. Aortic Valve Normal aortic valve structure and function. There is no aortic valve stenosis. There is no aortic valve regurgitation. Mitral Valve The mitral valve appears normal. There is mild mitral annular calcification. There is no mitral valve regurgitation. There is no mitral valve stenosis. Pulmonic Valve The pulmonic valve is likely normal. Tricuspid Valve Normal tricuspid valve structure. There is no tricuspid valve regurgitation. Tricuspid regurgitation envelope is inadequate for calculation of right ventricular systolic pressure. Normal right atrial pressure. Great Vessels All visible segments of the aorta are normal in size. The visualized portions of the pulmonary artery and branches are normal. Venous The inferior vena cava is normal in size and collapses greater than 50% with inspiration. Pericardium/Pleural There is no evidence of pericardial effusion. Prior Study Comparison Changes noted compared to prior study dated: 10/03/2024. EF 65 to 70%, elevated filling pressures. Measurements 2D Linear Measurements IVSd: 1.16 0.6-0.9/0.6-1.0 cm LVIDd: 4.32 3.9-5.3/4.2-5.9 cm LVIDd Index: 2.32 2.4-3.2/2.2-3.1 cm/m2 LVIDs: 2.49 2.0-3.6 cm LVPWd: 0.99 0.7-1.1 cm LA Diam: 3.50 2.7-3.8/3.0-4.0 cm LAIDs Index: 1.88 1.5-2.3 cm/m2 LV Mass: 197.83 67-162/88-224 g LV Mass Index: 106.36 43-95/49-115 g/m2 LVOT Diam: 2.20 3.0+(-)1.3 cm 2D Systolic Function EF 4C: 71.60 >55% EF 2C: 69.40 >55% EF BiP: 70.30 >55% Mitral Valve MV VTI: 0.41 MV Pk Cornel: 1.51 MV Mn Cornel: 1.07 MV Pk Grad: 9.00 MV Mn Grad: 5.00 MV Pk E: 1.40 MV PK A: 1.11 MV Decel Time: 333.00 E/A: 1.30 E'Lateral: 6.96 E'Medial: 4.57 E/E' Med: 30.60 E/E' Lat: 20.10 PHT: 97.00 MVA PHT: 2.27 MVA Continuity: 1.84 Decel Dundy: 4.21 Aortic Valve AoV Pk Cornel: 1.35 AoV Pk Grad: 7.00 AME: 2.85 LVOT LVOT Pk Cornel: 0.99 LVOT Mn Cornel: 0.71 LVOT VTI: 0.20 LVOT Pk Grad: 4.00 LVOT Mn Grad: 2.00 LVOT Diam: 2.20 LVOT Area: 3.80 Diastolic Function MV Pk E: 1.40 MV Pk A: 1.11 E/A: 1.30 E'Medial: 4.57 E/E' Med: 30.60 E' Laterial: 6.96 E/E' Lat: 20.10 Right Ventricle TAPSE (mm): 20.40 TVS' Cornel: 10.80 Great Vessels Aorta Sinus of Valsalva: 3.60 2.0-3.5 cm Ao Asc: 3.60 2.1-3.4 cm Pulmonary Valve PV Pk Cornel: 0.79 Peak PV Grad: 2.00 Updated in Other Vendor System with Status of Final Gabe Elizondo MD electronically signed on 12/01/2024 3:42:17 PM with status of Final
[2024-11-29 07:18] LABS: Alanine Aminotransferase 12 U/L (0-31); Albumin Level 3.8 g/dL (3.5-5.0); Alkaline Phosphatase 68 U/L (39-117); Anion Gap 13 (12-20); Aspartate Amino Transferase 20 U/L (5-31); Blood Urea Nitrogen 20 mg/dL (9-16); Calcium 8.4 mg/dL (8.4-10.2); Carbon Dioxide 21 mmol/L (22-29); Chloride 109 mmol/L (96-108); Creatinine Clr Calc Pharmacy 55.7; Estimated Glomerular Filt Rate > 60; Potassium 3.7 mmol/L (3.3-5.1); Sodium 139 mmol/L (135-145); Total Protein 6.3 g/dL (6.5-8.0)
[2024-11-29 07:33] LABS: Thyroid Stimulating Hormone 1.99 uIU/mL (0.32-4.0)
--- NOTE | 2024-11-29 07:58 | P.PNIM_ITS ---
Subjective Subjective Date of Service: 11/29/24 Interval History: Patient is not having any further bright red blood per rectum episodes Patient was supposed to have initiated Eliquis overnight, however patient hesitated and did not take it This a.m., patient started having AFib with RVR for which she received multiple doses of Lopressor with good resolution This is likely in the setting of reflex tachycardia as we held her home metoprolol dose on admission given risk of hemodynamic compromise-patient responded with re-initiation of home meds Review of Systems Review of Systems: Yes all other systems are reviewed and are negative Physical Exam 2 Vital Signs: Vital Signs: Last Vital Signs Temp 97.6 F 11/29/24 04:00 Pulse 110 H 11/29/24 04:00 Resp 16 11/29/24 04:00 BP 130/62 11/29/24 04:00 Pulse Ox 92 11/29/24 04:00 O2 Del Method Room Air 11/29/24 04:00 BMI result Body Mass Index 36.5 Alert and orientated X3, able to give good history. Cardiac: S1 S2 RRR, no murmur, tachycardia Pulmonary: lungs clear to auscultation , No R/R Abdominal: BS active in all 4 quadrants, no guarding, tenderness, rebounding MSK: strength 5/5 upper and lower extremities Extremities: no edema in lower extremities, PT and DP pulses palpable +2, mild R foot drop Psych: anxious mood, judgement and insight good Objective Data Active Medications Acetaminophen (Acetaminophen 325 Mg Tablet) 650 mg PO Q6H PRN PRN Reason: Pain, Mild 1-3,fever,headache Last Admin: 11/28/24 21:22 Dose: 650 mg Documented By: HYACINTH Albuterol/Ipratropium (Albuterol/Iprat 2.5/0.5mg 3 Ml Ampul.Neb) 3 ml INHALE Q4H PRN PRN Reason: Shortness of Breath/Wheezing Apixaban (Apixaban 5 Mg Tablet) 5 mg PO BID [facility] Last Admin: 11/28/24 21:17 Dose: Not Given Documented By: HYACINTH Non-Admin Reason: Provider reported to resume tomorrow Calcium Carbonate (Calcium Carbonate 750 Mg Tab.Chew) 750 mg PO Q4H PRN PRN Reason: Heartburn Dextrose (Dextrose 50 % 25 Gm/50 Ml Syringe) 25 gm IVPUSH Q15M PRN; Protocol PRN Reason: per Hypoglycemia Standing Ord. Escitalopram Oxalate (Escitalopram Oxalate 10 Mg Tablet) 10 mg PO BEDTIME [facility] Last Admin: 11/28/24 21:19 Dose: 10 mg Documented By: HYACINTH Ferrous Sulfate (Ferrous Sulfate 324 Mg Tablet.Dr) 324 mg PO DAILY [facility] Glucose (Glucose Gel 15 Gm Gel..Gram.) 15 gm PO Q15M PRN; Protocol PRN Reason: per Hypoglycemia Standing Ord. Insulin Human Lispro (Insulin Lispro 100 Unit/Ml 3 Ml Vial) 0 unit SUBCUT Q6H [facility]; Protocol Last Admin: 11/29/24 06:23 Dose: Not Given Documented By: HYACINTH Non-Admin Reason: No Insulin Coverage Magnesium Hydroxide (Milk Of Magnesia 30 Ml Oral.Susp) 30 ml PO DAILY PRN PRN Reason: Constipation Melatonin (Melatonin 3 Mg Tablet) 6 mg PO BEDTIME PRN PRN Reason: Insomnia Morphine Sulfate (Morphine Sulfate 2 Mg/Ml Cartridge) 1 mg IVPUSH Q4H PRN; Protocol PRN Reason: Pain, Severe (Pain Scale 7-10) Multivitamins/Vitamin C (Multivitamin Tablet) 1 tab PO DAILY [facility] Ondansetron HCl (Ondansetron Hcl 4 Mg/2 Ml Vial) 4 mg IVPUSH Q8H PRN PRN Reason: Nausea and Vomiting Pantoprazole Sodium (Pantoprazole Sodium 40 Mg/10 Ml Vial) 40 mg IVPUSH BID@0630,1630 [facility] Last Admin: 11/29/24 06:19 Dose: 40 mg Documented By: HYACINTH Sodium Chloride (0.9 % Sodium Chloride Flush 3 Ml Syringe) 3 ml IVFLUSH QSHIFT [facility] Last Admin: 11/28/24 21:22 Dose: 3 ml Documented By: YASHIRA-HALEY Sodium Chloride (0.9 % Sodium Chloride Flush 10 Ml Syringe) 5 ml IVFLUSH ONCE PRN PRN Reason: Infusion Center Labs 11/29/24 06:12 11/29/24 06:12 Labs: Laboratory Results - last 24 hr 11/28/24 11/28/24 11/28/24 12:38 16:01 20:43 MCV MCH MCHC RDW Plt Count MPV Absolute Nucleated RBC Nucleated RBC % (auto) PT INR Anion Gap Estim Creat Clear Calc Estimated GFR POC Glucose 123 H 111 185 H Random Glucose Calcium Total Bilirubin AST ALT Alkaline Phosphatase Total Protein Albumin TSH Urine Color Urine Appearance Urine pH Ur Specific Halfway Urine Protein Urine Glucose (UA) Urine Ketones Urine Blood Urine Nitrite Ur Leukocyte Esterase Urine RBC Urine WBC Ur Squamous Epith Cells Urine Bacteria Hyaline Casts 11/29/24 11/29/24 11/29/24 00:06 06:12 06:22 MCV 70.5 L MCH 20.9 L MCHC 29.7 L RDW 21.0 H Plt Count 383 MPV 10.4 Absolute Nucleated RBC 0.000 Nucleated RBC % (auto) 0.0 PT 11.9 INR 1.0 Anion Gap 13 Estim Creat Clear Calc 55.7 Estimated GFR > 60 POC Glucose 108 141 H Random Glucose 135 H Calcium 8.4 D Total Bilirubin 0.5 AST 20 ALT 12 Alkaline Phosphatase 68 Total Protein 6.3 L Albumin 3.8 TSH 1.99 Urine Color Urine Appearance Urine pH Ur Specific Halfway Urine Protein Urine Glucose (UA) Urine Ketones Urine Blood Urine Nitrite Ur Leukocyte Esterase Urine RBC Urine WBC Ur Squamous Epith Cells Urine Bacteria Hyaline Casts 11/29/24 Unknown MCV MCH MCHC RDW Plt Count MPV Absolute Nucleated RBC Nucleated RBC % (auto) PT INR Anion Gap Estim Creat Clear Calc Estimated GFR POC Glucose Random Glucose Calcium Total Bilirubin AST ALT Alkaline Phosphatase Total Protein Albumin TSH Urine Color Yellow Urine Appearance Clear Urine pH 5.5 Ur Specific Halfway >= 1.030 H Urine Protein Trace Urine Glucose (UA) >=1000 H Urine Ketones 15 Urine Blood Negative Urine Nitrite Negative Ur Leukocyte Esterase Trace H Urine RBC 0-2 Urine WBC 21-50 H Ur Squamous Epith Cells 3-5 Urine Bacteria None Seen Hyaline Casts 0-2 Assessment and Plan (1) GI bleed: Status: Acute Plan Patient is a 79-year-old female with history of previous GI bleed, hypertension, hyperlipidemia, diabetes, iron deficiency anemia, GERD, Carotid Stenosis, prior CVA with no current residual deficits, osteoarthritis and chronic back pain, anxiety and depression is being admitted for evidence of GI bleed. Patient currently is on Eliquis for history of stroke. Hemodynamics stable but downtrending Hb from 10-->9. Eliquis held on admission , now resolved BRBPR and hence will rechallenge her with Eliquis given high stroke risk vs HASBLED score. Bright red blood per rectum secondary to re-initiation of Eliquis, resolved with holding home Eliquis on admission Patient to be challenged with re-initiation of home Eliquis and monitoring her hemoglobin If patient has stable H&H-can be discharged tomorrow Given that the patient has bright red blood per rectum soon after in the re- initiation of Eliquis (3 days prior to her episodes of bright red blood per rectum), and imaging not suggesting any acute bleed, and mild but significant drop in hemoglobin from 10 to 9 her baseline appears to be 7 or 9, patient ablated APC with hemo spray in the AVMs in the cecum on colonoscopy just done is suggestive of remnant bleed/friable diverticulitis. Given that patient is hemodynamically stable, I tried to reinitiate Eliquis, however patient last night had refused Eliquis and hence she needs to be monitored for 1 more day. Significant anxiety given hesitancy to take meds.At this time I do not believe that a GI consult is warranted as she does not have any more episodes of bright red blood per rectum upon holding her Eliquis and she herself reported that she had a formed brown stool without any blood streaking or mixed stool. Her daughter Tricia was updated over the phone. Is aware of the plan. And if she continues to bleed, we need to have a multidisciplinary conversation about risks of bleeding versus stroke as the patient is a high stroke risk and continues to bleed upon re-initiation of anticoagulation. AFib with RVR Patient is not having any further bright red blood per rectum episodes Patient was supposed to have initiated Eliquis overnight, however patient hesitated and did not take it This a.m., patient started having AFib with RVR for which she received multiple doses of Lopressor with good resolution This is likely in the setting of reflex tachycardia as we held her home metoprolol dose on admission given risk of hemodynamic compromise-patient responded with re-initiation of home meds Results of EGD 08/21/2024 Larynx:normal Esophagus: GE junction at 36 cm, diaphragm hiatus at 40 cm, schatzki ring noted with 4 cm fixed hiatal hernia Stomach: atrophic gastritis. Biopsies were obtained. Grade 2 flap valve on retroflexed examination of the cardia. Duodenum: Normal bulb and descending duodenum, bx taken Results of Colonoscopy 08/21/2024: Terminal Ileum-normal Cecum: a few conglomerations of AVM noted in the cecum from 8-10 mm in diameter. these were lifted with eleview and then ablated using APC with hemospray then applied. Ascending Colon: normal Transverse Colon -normal Descending Colon:normal Sigmoid Colon: mild to moderate diverticulosis Rectum: Retroflexion with small internal hemorrhoids, grade I Anorectum - normal GI bleed - Recent colonoscopy and EGD MonNovember 20 2024 Daily H&H Telemetry Resume Eliquis, we will continue to hold aspirin given risk of bleed/intervention CT negative for acute GIB, noted diverticulosis no diverticulitis Diabetes Re-initiate diabetic diet diet Insulin sliding scale S/p completion of heart monitor as outpatient (29 days total) Pt told she has had runs of AFIB, new onset Pt currently NSR, will keep pt on telemetry MG stable, checking TSH DVT prophylaxis: Home Eliquis PPI prophylaxis: Protonix IV Full code status This note is constructed using voice recognition software. While every effort has been made to ensure accuracy, auditor internal errors may have been included. Total time managing care of this patient today: 35 minutes. Quality Stroke Does the patient have a stroke diagnosis?: No Reason for No Anti-thrombotic by Day Two: Contraindicated VTE Prior VTE?: No VTE Risk Level:: Medical - moderate - high VTE Device Contraindication: N/A - Device Ordered VTE Drug Contraindication: Treatment Not Indicated
[2024-11-29] MEDS: Ferrous Sulfate 324 MG TABLET.DR PO (08:32)
[2024-11-29] MEDS: 0.9 % Sodium Chloride Flush 3 ML SYRINGE IVFLUSH ×3 (08:33→20:52)
[2024-11-29 08:55] LABS: Glucose, Whole Blood 189 mg/dL (60-115)
[2024-11-29 10:02] LABS: Troponin-I High Sensitivity 10.8 ng/L (<3.5-17.0)
[2024-11-29 12:02] LABS: Glucose, Whole Blood 164 mg/dL (60-115)
--- NOTE | 2024-11-29 12:31 | MHC.CM.PN ---
IMM 11/29/24, Pt. lives alone, her dtr lives nearby. PCP is confirmed: Lisa Card, HCP is on file and confirmed: Dotty and Tricia. Pt. has used services from [facility] in the recent past, and they recommended that she continue with out pt rehab. For DME, she uses a cane and a walker. Family to transport home at DC, DCP: home, self care. CM to follow for DC needs.
[2024-11-29 20:34] LABS: Glucose, Whole Blood 117 mg/dL (60-115)
[2024-11-30 00:02] VITALS: BP 133/62; PULSE 74; RESP 17; TEMP 36.7; O2SAT 96
[2024-11-30 04:00] VITALS: BP 142/66; PULSE 77; RESP 17; TEMP 36.4; O2SAT 95
[2024-11-30 06:55] LABS: Hematocrit 28.5 % (37.0-47.0); Hemoglobin 8.5 g/dl (12.0-16.0); Mean Corpuscular HGB Conc 29.8 g/dl (31.0-35.0); Mean Corpuscular Hemoglobin 21.2 pg (27.0-33.0); Mean Corpuscular Volume 71.1 fL (80.0-98.0); NRBC Abs Auto 0.000 X10*3/uL (0.0-0.012); NRBC Pct Auto 0.0 /100WBC (0.0-0.2); Platelet Count 379 X10*3/uL (160-400); Red Blood Count 4.01 X10*6/uL (4.20-5.50); White Blood Count 9.0 X10*3/uL (4.8-10.8)
[2024-11-30 06:58] LABS: Glucose, Whole Blood 139 mg/dL (60-115)
[2024-11-30 07:00] LABS: INTERNATIONAL NORM RATIO 1.2 (0.9-1.1); Prothrombin Time 13.6 SEC (10.9-12.4)
[2024-11-30 07:11] LABS: Alanine Aminotransferase 13 U/L (0-31); Albumin Level 3.9 g/dL (3.5-5.0); Alkaline Phosphatase 63 U/L (39-117); Anion Gap 11 (12-20); Aspartate Amino Transferase 19 U/L (5-31); Blood Urea Nitrogen 24 mg/dL (9-16); Calcium 8.6 mg/dL (8.4-10.2); Carbon Dioxide 23 mmol/L (22-29); Chloride 107 mmol/L (96-108); Creatinine Clr Calc Pharmacy 57.1; Estimated Glomerular Filt Rate > 60; Potassium 4.1 mmol/L (3.3-5.1); Sodium 137 mmol/L (135-145); Total Protein 6.3 g/dL (6.5-8.0)
[2024-11-30 07:19] VITALS: BP 135/61; PULSE 72; RESP 18; TEMP 36.9; O2SAT 93
[2024-11-30 09:29] VITALS: BP 135/61; PULSE 72
[2024-11-30] MEDS: Ferrous Sulfate 324 MG TABLET.DR PO (09:30)
[2024-11-30] MEDS: Lidocaine 4 % Patch ADH..PATCH 0.5 PATCH TRANSDERMA (09:30)
[2024-11-30] MEDS: 0.9 % Sodium Chloride Flush 3 ML SYRINGE IVFLUSH (09:32)
[2024-11-30 10:49] LABS: Glucose, Whole Blood 160 mg/dL (60-115)
[2024-11-30 10:56] VITALS: BP 126/59; PULSE 71; RESP 18; TEMP 36.8; O2SAT 94
--- NOTE | 2024-11-30 12:21 | MHC.CM.PN ---
Addendum entered by Wendy Fu 11/30/24 12:25: CM met with Patient at bedside and she is accepting services from [facility]. Original Note: Patient has been medically cleared for dc to home today with services. and[facility] has accepted Patient and they have been made aware of today's dc. Last IMM was addressed yesterday.
--- NOTE | 2024-11-30 12:22 | P.DS_ITS ---
DS: Providers Provider Date of Service: 11/30/24 Date of admission: 11/28/24 00:22 Date of discharge: 11/30/24 Primary care physician: Lisa Card PA-C Consults: 11/28/24 00:25 Consult to Gastroenterology Routine Consulting Provider: Anh Flannery Reason for consultation: GIB Has provider been notified: No DS: Diagnosis Discharge Diagnosis (1) GI bleed: Status: Acute (2) Acute lower GI bleeding: Status: Acute DS: Summary Hospital Course Hospital Course: Admission note HPI Patient is a 79-year-old female with history of previous GI bleed, IBS-D, hypertension, hyperlipidemia, non insulin dependent diabetes, iron deficiency anemia, GERD, prior CVA currently on Eliquis, chronic lumbar spondylolisthesis and recent 2nd surgery with chronic right footdrop, osteoarthritis and chronic back pain, hysterectomy, cholecystectomy, appendectomy, anxiety and depression presents to the emergency department earlier today with red blood per rectum that began earlier in the evening. Since being in the ED patient has had 5 additional bloody stool episodes. Her stool for occult is positive. Patient's H&H originally 10.2 and 33.7 is now 9.9 and 31.8 with stable hemodynamics. Type and screen has been drawn. Patient has not required any transfusion. Patient has been started on Protonix IV. CT scan is currently pending. Eliquis has been held. Pt states she just had colonoscopy and EGD this past Monday. Pt was told she has diverticulosis and the EGD was negative. Pt believes she has a large hemorrhoid but is not sure if this is causing her bleeding issues. Pt is having only nausea, but no abdominal pain. Skin is pale. CT scan negative for GIB, noted diverticulosis. Pt also just finished monitor and storage bin tender after 29 days and was told by provider there have been runs of AFIB. Plan is to consult Gastroenterology, monitor patient overnight. Patient will remain NPO. Hospital course the patient had bright red blood per rectum soon after in the re-initiation of Eliquis and imaging not suggesting any acute bleed, and mild drop in hemoglobin from between 8.5 - 9.9. Low iron stores. her baseline appears to be 7 to 9, patient ablated APC with hemo spray in the AVMs in the cecum on colonoscopy that was just done on November 20 is likely suggestive of remnant bleed/friable diverticulosis. Discussed with GI who recommended restarting Eliquis. the patient tolerated it well with no recurrence of bleeding. We discussed the need of blood thinners which she agrees on for prevention of stroke. We discussed the need to follow up with cardiology as outpatient for further work up and possible intervention (Watchman device) if needed to take her off blood thinners. Worked with PT who recommended home PT upon discharge. Discharge plan Continue Eliquis Continue Iron supplement Start High fiber diet with goal of 1-2 bowel movements a day Follow up with cardiology as outpatient Time Attestation Discharge Coordination Time (in mins): 38 Quality: Safe Use of Opioids Does Pt have an Active Cancer Diagnosis on the Problem List?: No Quality: Stroke Does the patient have a stroke diagnosis?: No Physical Exam Vital Signs: Vital Signs: Last Vital Signs Temp 98.2 F 11/30/24 10:56 Pulse 71 11/30/24 10:56 Resp 18 11/30/24 10:56 BP 126/59 L 11/30/24 10:56 Pulse Ox 94 11/30/24 10:56 O2 Del Method Room Air 11/30/24 10:56 BMI result Body Mass Index 36.5 Const: Other: Constitutional : Awake, interactive, not in distress Neck : Normal inspection, Supple Cardiovascular : RRR, no JVP, no lower extremity edema Respiratory : good bilateral air entry, no crackles, wheezes or rhonchi Gastrointestinal: soft, lax, Normal bowel sounds, Non tender Skin : Warm, Dry Neurological : Alert & oriented x3, No focal deficit DS: Data Data Completed and Pending Completed studies during hospitalization [Text1]: Procedures Excision of Lumbar Vertebral Disc, Open Approach (08/13/24) Fusion of Lumbar Vertebral Joint with Interbody Fusion Device, Anterior Approach, Anterior Column, Open Approach (08/13/24) Insertion of Interspinous Process Spinal Stabilization Device into Lumbar Vertebral Joint, Open Approach (08/13/24) Removal of Interbody Fusion Device from Lumbosacral Joint, Open Approach (08/13/24) Transfusion of Nonautologous Red Blood Cells into Peripheral Vein, Percutaneous Approach (11/09/24) Labs on day of discharge: Laboratory Results - last 24 hr 11/29/24 11/30/24 11/30/24 20:31 06:41 06:54 WBC 9.0 RBC 4.01 L Hgb 8.5 L Hct 28.5 L MCV 71.1 L MCH 21.2 L MCHC 29.8 L RDW 21.2 H Plt Count 379 MPV 10.5 Absolute Nucleated RBC 0.000 Nucleated RBC % (auto) 0.0 PT 13.6 H INR 1.2 H Sodium 137 Potassium 4.1 Chloride 107 Carbon Dioxide 23 Anion Gap 11 L BUN 24 H Creatinine 0.79 Estim Creat Clear Calc 57.1 Estimated GFR > 60 POC Glucose 117 H 139 H Random Glucose 142 H Calcium 8.6 Total Bilirubin 0.4 AST 19 ALT 13 Alkaline Phosphatase 63 Total Protein 6.3 L Albumin 3.9 11/30/24 10:45 WBC RBC Hgb Hct MCV MCH MCHC RDW Plt Count MPV Absolute Nucleated RBC Nucleated RBC % (auto) PT INR Sodium Potassium Chloride Carbon Dioxide Anion Gap BUN Creatinine Estim Creat Clear Calc Estimated GFR POC Glucose 160 H Random Glucose Calcium Total Bilirubin AST ALT Alkaline Phosphatase Total Protein Albumin Imaging Chest x-ray: Radiologist's impression: ITS Impressions Hip X-Ray 11/29/24 10:28 IMPRESSION: 1. No acute bony abnormality of the right hip. 2. Appearance of the right hemipelvis in keeping with Paget's disease of bone. 3. Mild osteoarthrosis of the right hip joint. 4. Mild enthesopathic spurring of the right greater trochanter. Electronically signed by: Avery Byrnes MD 11/29/2024 10:46 AM EDT Discharge Plan Discharge Anticipated Discharge Date/Time: 11/30/24 12:10 Patient Disposition: Home Health Service Discharge Diagnosis: Lower GI bleed Referrals: [facility] [Outside] - 1 Week Lisa Card PA-C [Primary Care Provider, Internal Medicine] - 1 Week Discharge Medications: Continued citalopram 20 mg tablet 20 mg PO BEDTIME Qty: 90 1RF ferrous sulfate 220 mg (44 mg iron)/5 mL solution 220 mg PO DAILY Qty: 473 0RF pantoprazole 20 mg tablet,delayed release (DR/EC) 20 mg PO DAILY@0630 90 Days Qty: 90 0RF Citrucel 500 mg Tablet 500 mg PO DAILY Eliquis 5 mg tablet 5 mg PO BID alpha lipoic acid 100 mg capsule 100 mg PO DAILY calcium citrate 250 mg calcium tablet 630 mg PO DAILY cholecalciferol (vitamin D3) 25 mcg (1,000 unit) capsule 25 mcg PO DAILY multivitamin Tablet 1 tab PO DAILY Jardiance 10 mg tablet 10 mg PO DAILY Qty: 90 2RF cetirizine [All Day Allergy (cetirizine)] 10 mg tablet 10 mg PO DAILY Qty: 90 0RF ascorbate calcium (vitamin C) 500 mg tablet 500 mg PO DAILY Qty: 90 0RF (DME) blood-glucose meter [Freestyle [employer]] Misc See Rx Instructions .Route Qty: 1 0RF Rx Instructions: As directed (DME) lancets [FreeStyle Lancets] 28 gauge misc See Rx Instructions .Route Qty: 100 1RF Rx Instructions: As directed; TID to check blood sugars rosuvastatin 5 mg tablet 5 mg PO DAILY Qty: 30 3RF Rx Instructions: Change from atorvastatin metoprolol tartrate 50 mg tablet 75 mg PO BID 30 Days Qty: 90 3RF Rx Instructions: stop Labetolol - start Metoprolol Discharge Orders: Discharge Order (Routine); Ordered 11/30/24 Ordered By: Gopi Frederick Diet: Low salt diet Activity on Discharge: As tolerated Stand Alone Forms: Patient Portal Discharge page Print Language: Swedish Care Plan Goals: Continue Eliquis Continue Iron supplement Start High fiber diet with goal of 1-2 bowel movements a day Follow up with cardiology as outpatient Health Concerns: lower GI bleed Plan of Treatment: Continue Eliquis follow with Cardiology Assessment: as above
--- NOTE | 2024-11-30 12:42 | P.F2F_ITS ---
Service Date Service Date: 11/30/24 Encounter Date of encounter: 11/30/24 Reasons for Services Signs and symptoms assessed: physical deconditioning GI Bleed Reason for nursing home: medication management and teach disease management Reason for physical therapy: home safety and mobility and therapeutic exercises Homebound: Leaving the home is medically contraindicated at this time without the asist of a device and/or another person due th the listed conditions above and below. Reason homebound: unsteady gait / fall risk and unable to drive Certification: Based on the above findings, I certify that this patient is confined to the home and needs intermittent nursing home care, physical therapy and/or speech therapy, or continues to need occupational therapy. The patient is under my care, and I have initiated the establishment of the plan of care. The patient will be followed by a physician who will periodically review the plan of care. Time Spent With Patient Time: Total time managing care of this patient today ____ minutes.
[2024-12-02 08:14] LABS: Glucose, Whole Blood 148 mg/dL (60-115)
== END 2024-11-30 13:53 | disposition home health service (06) | DRG 379 ==
LOC: HO.ED 11-28 00:35 → HO.EDOVER 11-28 05:39 → HO.IMC 11-28 14:54 → HO.EDOVER 11-28 15:00 → HO.IMC 11-28 16:49
PROVIDERS: Nurse Practitioner Family; Physician Assistant Medical; Student in an Organized Health Care Education/Training Program; Admitting Provider Student in an Organized Health Care Education/Training Program; Emergency Provider Emergency Medicine; Visit Provider Student in an Organized Health Care Education/Training Program
DX: K57.31 Diverticulosis of large intestine without perforation or abscess with bleeding (principal); E11.9 Type 2 diabetes mellitus without complications; I48.91 Unspecified atrial fibrillation; Z86.73 Personal history of transient ischemic attack (TIA), and cerebral infarction without residual deficits; Z79.01 Long term (current) use of anticoagulants; Z79.899 Other long term (current) drug therapy
CPT/HCPCS: 36415; 73502; 74178; 80053; 81001; 82272; 82947; 84443; 84484; 85014; 85018; 85025; 85027; 85610; 86850; 86900; 86901; 93005; 93306; 97162; 99285; J0616; J2270; J2470; J3475; Q9957; Q9967

== ENCOUNTER → 2024-11-27 22:45 | Outpatient (BNV) | payer MEDICARE, SELFPAY | PROVIDERS: Emergency Provider Emergency Medicine; Visit Provider Nurse Practitioner Family | DX: K92.2 Gastrointestinal hemorrhage, unspecified (principal) | CPT/HCPCS: 99221; 99499 ==

== ENCOUNTER → 2024-11-27 23:12 | Outpatient (BNV) | payer MEDICARE, SELFPAY | PROVIDERS: Emergency Provider Emergency Medicine; Visit Provider Radiology Diagnostic Radiology | DX: K62.5 Hemorrhage of anus and rectum (principal); K76.0 Fatty (change of) liver, not elsewhere classified | CPT/HCPCS: 74178 ==

== ENCOUNTER 2024-11-28 00:22 | Outpatient (BNV) | payer MEDICARE, SELFPAY | END 2024-11-28 21:20 | PROVIDERS: Admitting Provider Student in an Organized Health Care Education/Training Program; Emergency Provider Emergency Medicine; Visit Provider Internal Medicine Cardiovascular Disease | DX: I48.91 Unspecified atrial fibrillation (principal); I45.10 Unspecified right bundle-branch block | CPT/HCPCS: 93010 ==

== ENCOUNTER 2024-11-28 00:22 | Outpatient (BNV) | payer MEDICARE, SELFPAY | END 2024-11-29 10:28 | PROVIDERS: Admitting Provider Student in an Organized Health Care Education/Training Program; Emergency Provider Emergency Medicine; Visit Provider Radiology Diagnostic Radiology | DX: M16.11 Unilateral primary osteoarthritis, right hip (principal) | CPT/HCPCS: 73502 ==

== ENCOUNTER 2024-11-28 00:22 | Outpatient (BNV) | payer MEDICARE, SELFPAY | END 2024-11-29 09:17 | PROVIDERS: Admitting Provider Student in an Organized Health Care Education/Training Program; Emergency Provider Emergency Medicine; Visit Provider Internal Medicine Cardiovascular Disease | DX: I48.91 Unspecified atrial fibrillation (principal); I34.81 Nonrheumatic mitral (valve) annulus calcification; I51.89 Other ill-defined heart diseases | CPT/HCPCS: 93306 ==

== ENCOUNTER 2024-12-02 15:04 | Outpatient (AMB) | payer MEDICARE, SELFPAY ==
[2024-12-02 15:14] VITALS: BP 126/62; PULSE 74; BMI 36.8
--- NOTE | 2024-12-02 15:14 | A.OFFVIS_ITS ---
Vital Signs 12/02/24 15:14 Height 5 ft 1 in Weight 194 lb 14.218 oz BMI 36.8 BP 126/62 Blood Pressure Location Lt brachial Position Sitting Pulse 74 Pulse Source Pulse Oximeter Intake Visit Reasons: 6 week follow up Rehab Services Aide Required: No Entrepreneurial Finance Professor: Entrepreneurial Finance Professor Present Allergies codeine Adverse Reaction (Intermediate, Verified 12/02/24 15:19) seizure oxycodone (From Percocet) Adverse Reaction (Intermediate, Verified 12/02/24 15:19) Nausea and Vomiting Medication List - Last Reconciled 12/02/24 by KARINA Parker alpha lipoic acid 100 mg PO DAILY apixaban (Eliquis) 5 mg PO BID ascorbate calcium (vitamin C) 500 mg PO DAILY blood-glucose meter (Freestyle InsuLinx meter) As directed calcium citrate 630 mg PO DAILY cetirizine (All Day Allergy (cetirizine)) 10 mg PO DAILY cholecalciferol (vitamin D3) 25 mcg PO DAILY citalopram 20 mg PO BEDTIME empagliflozin (Jardiance) 10 mg PO DAILY ferrous sulfate 220 mg (5 mL) PO DAILY lancets (FreeStyle Lancets) As directed; TID to check blood sugars methylcellulose (laxative) (Citrucel) 500 mg PO DAILY metoprolol tartrate 75 mg (1.5 x 50 mg) PO BID 30 days multivitamin 1 tab PO DAILY pantoprazole 20 mg PO DAILY@0630 90 days rosuvastatin 5 mg PO DAILY HPI HPI 6 week follow up: Details: Yahaira is an 79-year-old female with past medical history of hypertension, diabetes, obesity, sinus tachycardia, who was recently admitted to [facility] after having an episode of garbled speech, thought to be TIA. An MRI of the brain did show a subacute left parietal infarct thought to be embolic source. She was put on Eliquis for anticoagulation. An outpatient cardiac event monitor did show episodes of paroxysmal atrial fibrillation. She was seen in the ER for symptomatic anemia requiring transfusion. An outpatient colonoscopy and EGD showed findings including cecum AVM, diverticulosis and gastritis. Her anticoagulation was briefly held then restarted. She was then admitted to [facility] with rectal bleeding that was managed conservatively. She was discharged on her Eliquis again. Today she reports that she has been doing well since her recent hospital discharge. She has not had any rectal bleeding since her discharge 2 days ago. Watchman procedure was mentioned to patient and family during her admission. She has not had any new neurological events. She has no heart palpitations, lightheadedness, presyncope, syncope. No shortness of breath, PND, orthopnea or edema. No chest discomfort at rest or with activity. She does report some fatigue. Taking all meds as directed. One daughter is present and another daughter is on the phone from [place]. COUNTS INCLUDE 234 BEDS AT THE [facility] Medical History IBS (irritable bowel syndrome) Allergies Urticaria Dyslipidemia Type 2 diabetes mellitus without complication, without long-term current use of insulin Hearing impairment History of adenomatous polyp of colon Lumbar back pain with radiculopathy affecting left lower extremity Obesity (BMI 30-39.9) Paget's disease of the bone Osteopenia GERD (gastroesophageal reflux disease) Impaired fasting glucose Anxiety and depression Essential hypertension Surgical History History of back surgery Hx of LASIK Hx of left cataract extraction Hx of tubal ligation H/O colonoscopy History of partial hysterectomy History of appendectomy History of cholecystectomy H/O breast surgery History of lumbar discectomy Social History Household Members: None Housing: House Are you a primary special needs child caregiver to a significant other at home: No Do you presently have visiting nurse or other home services: No Alcohol intake: never Patient Tobacco Use Status: Never used Tobacco e-Cigarette/Vaping Use: Never Used Second Hand Smoke Exposure: No Advance Directives Date on File: 11/02/22 service: No Current occupational status: retired Cognitive needs: No Hearing needs: No Vision needs: Yes (Reading glasses) Review of Systems Const All systems reviewed & are unremarkable except as noted in HPI and below Reports fatigue ENT Denies dizziness Card Denies chest pain, Denies chest pain at rest, Denies chest pain with activity, Denies rapid heart rate, Denies pedal edema, Denies edema, Reports leg edema, Denies lightheadedness, Denies palpitations, Denies dyspnea, Denies dyspnea on exertion and Denies orthopnea Resp Denies cough, Denies dyspnea and Denies dyspnea on exertion GI Denies hematochezia and Denies change in stool character Musc Denies abnormal gait, Reports limited range of motion, Reports muscle cramps, Denies muscle weakness, Denies numbness, Denies radiating pain into limb, Denies stiffness and Denies tingling Neuro Denies abnormal gait, Denies dizziness, Denies numbness and Denies tingling Endo Reports fatigue and Denies palpitations Physical Exam Vital Signs: Last Vital Signs Pulse 74 12/02/24 15:14 BP 126/62 12/02/24 15:14 BMI result Body Mass Index 36.8 Const General: cooperative, healthy appearing, comfortable and no acute distress Orientation/consciousness: patient oriented x3 Neck Neck: Yes normal visual inspection Resp Effort & Inspection: normal respiratory effort Auscultation: clear to auscultation bilaterally, no rales, no rhonchi and no wheezes Cardio Rate: regular rate Rhythm: regular rhythm Heart sounds: S1 normal heart sound present, S2 normal heart sound present, no gallops, no murmurs and no rubs Neuro General: patient oriented x3 Extrem Other: trace ankle edema General: Yes normal to inspection Psych Appearance: grossly normal Mental Status: mental status grossly normal Speech and movement: Normal speech and movement present Assessment & Plan Assessment & Plan (1) Acute lower GI bleeding: Code(s): K92.2 - Gastrointestinal hemorrhage, unspecified Category: Medical Plan: [place] [facility] [place] for symptomatic anemia requiring transfusion, followed [place] [facility] [place] for bright red blood per rectum. An EGD and colonoscopy was done on 11/19/2024 showing hiatal hernia, atrophic gastritis, AVM, internal hemorrhoids and diverticulosis. Her anticoagulation had been briefly held then restarted. She is following with GI. No active bleeding at present. (2) Paroxysmal atrial fibrillation: Code(s): I48.0 - Paroxysmal atrial fibrillation Category: Medical Plan: New finding of paroxysmal atrial fibrillation on recent cardiac event monitor. Full report is still pending. Chads Vasc score of 7. She is on Eliquis for anticoagulation with issues of GI bleed as above. Spent time discussing Watchman device with her and daughters. Gave her a pamphlet. She is not ready to make a decision at this time. Will discuss case with her primary manager foreign Dr. Aguilar, then plan to call her again for further discussion. She is on metoprolol for heart rate control. Pulse is regular on examination today and no reports of heart palpitations. Echocardiogram 11/29/2024 showed EF 65- 70%, left atrium normal in size, right atrium not well visualized, no signi ficant valve abnormalities. (3) CVA (cerebral vascular accident): Comment: 10/03/2024 Small embolic looking left middle cerebral artery area ischemic infarction resulting in transient motor aphasia. Carotid stenosis is moderate and did not require any surgical intervention. Likely cause of this stroke was cardiac source of embolism. My recommendation is to anticoagulate for next 3-6 months and during that time investigated her heart for atrial fibrillation. Blood pressure control and aggressive statin management is also recommended. - per neurology note Code(s): I63.9 - Cerebral infarction, unspecified Category: Medical Plan: Recent CVA (September 2024) initially with transient aphasia, now with full resolution of symptoms. CVA thought to be embolic in nature. Cardiac event monitor re cently worn does confirm presence of PAF. Continue anticoagulation. Watchman device being considered. (4) Bilateral carotid artery stenosis: Code(s): I65.23 - Occlusion and stenosis of bilateral carotid arteries Category: Medical Plan: Head and neck CTA done while inpatient showing left proximal ICA 60 % stenosis, right ICA terminus up to 50% stenosis. This was not thought to be the cause of her CVA. She is on Eliquis and atorvastatin now. Labs done 10/03/2024 showed LDL 70. She has seen Dr. Salinas in follow-up and her carotids will be monitored. (5) Dyslipidemia: Code(s): E78.5 - Hyperlipidemia, unspecified Category: Medical Plan: LDL goal less than 70. Labs 10/03/2024 shows LDL 70. Continue atorvastatin. (6) Essential hypertension: Code(s): I10 - Essential (primary) hypertension Category: Medical Plan: Blood pressure goal less than 130/80. Controlled at this time. Continue metoprolol. Previously had been on labetalol but changed over to metoprolol once PAF found. (7) Hospital discharge follow-up: Code(s): Z09 - Encounter for follow-up examination after completed treatment for conditions other than malignant neoplasm Category: Medical Plan: Discharge summary reviewed (8) Hypersomnia: Code(s): G47.10 - Hypersomnia, unspecified Category: Medical Plan: Home sleep study previous ordered. Plan I discussed with the patient the importance of continuing Eliquis for atrial fibrillation to prevent strokes, acknowledging the risk of gastrointestinal bleeding. We talked about the potential for a Watchman device as an alternative to long-term anticoagulation, pending cardiology consultation. I advised the patient to follow up with a hearing impaired teacher and to seek emergency care if excessive bleeding occurs. Patient Instructions: - Continue taking Eliquis as prescribed. - Stop Eliquis if you experience significant bleeding and contact your doctor. - Follow up with your manager foreign and hearing impaired teacher as scheduled. - Go to the emergency room if you have severe bleeding. Patient was informed and verbally consented to the use of an ambient scribe for clinic note documentation during this visit. Visit time spent on chart review, interview, assessment, orders, documentation. Coding Level of Care Code Est Pt Level 5 (35288) Diagnoses Acute lower GI bleeding K92.2 Paroxysmal atrial fibrillation I48.0 CVA (cerebral vascular accident) I63.9 Bilateral carotid artery stenosis I65.23 Dyslipidemia E78.5 Essential hypertension I10 Hospital discharge follow-up Z09 Hypersomnia G47.10 Time Spent (min) 45 Comment complex case
--- OUTSIDE RECORDS SUMMARY | 2024-12-02 16:21 | XMS_ITS | Patient Health Record ---
Author [facility] Address [address] [place] [address] Care Team Providers Care Statistical Methods Teacher Name Role Phone Stephie Lisa Primary Care Provider Unavailab Sal Omalley Unavailable [phone] Anne Lin Unavailable [phone] Allergies Allergen (clinical drug ingredient) Drug/Non Drug [...] Problem Status W/U Status Risk Notes Problem Other hammer toe(s) (acquired), right foot (M20.41) Active confirmed Problem Acquired hammer toe of left foot (4742048541299 103) Other hammer toe(s) (acquired), left foot (M20.42) Active confirmed Problem Type 2 diabetes mellitus with peripheral angiopathy (327181515) Type 2 diabetes mellitus with diabetic peripheral angiopathy without gangrene (E11.51) Active confirmed Q7(A), Q8(2B), Q9(1B,2C) Vital Signs Blood pressure diastolic 85 mm Hg 10/15/2024 Height 5 ft 1 in in 10/15/2024 Blood pressure systolic 126 mm Hg 10/15/2024 Weight 200 lbs 10/15/2024 BMI 37.79 kg/m2 10/15/2024 Procedures Procedure Date Ordered Date Performed Result Body Sit e N0317-GTWFLQLS DYSTROPHIC NAILS ANY # 10/15/2024 N/A 74079-RYHZ SKIN LESIONS, 2 TO 4 10/15/2024 N/A [id number] NAIL, 1-5 10/15/2024 N/A Encounters Encounter Location Date Provider [facility] [address] [place] [address] 10/15/2024 Sal Mace Type 2 diabetes mellitus with diabetic peripheral angiopathy without gangrene E11.51 ; Other hammer toe(s) (acquired), right foot M20.41 ; Tinea unguium B35.1 ; Pain in right toe(s) M79.674 ; Pain in left toe(s) M79.675 and Other hammer toe(s) (acquired), left foot M20.42 [facility] [address] [address] 07/24/2024 Anne Lin [facility] [address] [address] 07/31/2024 [facility] [address] [address] 09/26/2024 Anne Lin Assessments Encounter Date Diagnosis [...] Treatment Pending Test Test Name Order Date [id number] NAIL, 6 OR MORE 06/14/2012 74303-NAFHLCM NAIL, 1-02/25/2013 17388-ALSHKDS NAIL, -10/15/2024 13773-XPVPPSB NAIL, 1-08/29/2012 94366-BFBHZAR NAIL, 1-11/28/2012 34741-Rhkovyfa Plate 11/28/2012 88096-Thjsbecp Plate 02/25/2013 68300-Iudkolop Plate 06/14/2012 76324-Ginltqgk Plate 08/29/2012 14517-NAOC SKIN LESIONS, 2 TO 4 10/16/19 N7423-AAHDAYCP DYSTROPHIC NAILS ANY # Next Appt Details Provider Name:Sal Mace , 01/17/2025 01:45:00 PM, [address] [place], [address], Insurance Providers Payer Name Payer Address Payer Phone Subscriber Number Group Number Insured Name Patient Relationship to Insured Coverage Start Date Coverage End Date Medicare National [facility] [address] [place] [address] [id number] Yahaira Herring Self - patient is the insured 0 [employer] [address] [place] [address] [phone] [id number] Yahaira Herring Self - patient is the insured 0 Medical (General) History Medical History History ICD Code mumps measles high blood pressure chicken pox Pagets disease of bones arthritis Cataracts Menieres disease Reflux ( GERD) Sciatica Joint implants/screws Surgical History Surgery Date(Month/Year) nueroma left foot CABG surgery Back surgery 08/13/2024 Hospitalization History Reason Date(Month/Year) TIA- [facility] [place] 10/02/2024
--- OUTSIDE RECORDS SUMMARY | 2024-12-02 16:21 | XMS_ITS | Clinical Summary ---
Author Organization [employer] Address [address] [place] [address] Care Team Providers Care Federal Aid Coordinator Name Role Phone Unavailable Primary Care Provider [...] patient's age to complete this topic Insurance [facility] MED CARE MEDICARE Member Subscriber Plan / Payer (Ef fective 2010-Present) Name:Yahaira Herring Member ID:[id number] Relation to Subscriber:Self Name:Nima Yahaira Subscriber ID:[id number] Payer ID:STATE Group ID:Not on file Type:Medicare Address: [place] [employer] [facility]. [address] [facility] [place] [address]
--- OUTSIDE RECORDS SUMMARY | 2024-12-02 16:21 | XMS_ITS | Patient Health Record ---
Author Organization [facility] Address [address] [place] [address] [address] [place] [address] Care Team Providers Care Production Machine Operator Name Role Phone Karyna Clarke Unavailable [phone] Reason For Referral No Information Medications Medication SIG (Take, Route, Frequency, Duration) Notes Start Date End Date Status hydroCHLOROthiazide 1 ORAL daily; Duration: -3 [facility] 09/24/2012 Active Citalopram Hydrobromide 20MG ORAL; Duration: -3 [facility] CeleBREX 200MG ORAL; Duration: -3 [facility] 10/15/2013 Active Vitamin E 200UNITS 1 ORAL daily; Duration: -3 [facility] 09/24/2012 Active Atenolol 25MG 1 ORAL DAILY; Duration: -3 [facility] 09/24/2012 Active Calcium 1 ORAL daily; Duration: -3 [facility] 09/24/2012 Active Vitamin D3 1000 IU ORAL daily; Duration : -3 [facility] 09/24/2012 Active Pocahontas Jelly 1 ORAL daily; Duration: -3 [facility] 09/24/2012 Active Problems Problem Type SNOMED Code ICD Code Onset Dates Problem Status W/U Status Risk Notes Problem Menopausal symptom (62965578) Symptomatic menopausal or female climacteric states (627.2) Active confirmed Major Problem Gynecological examination normal (135758307183671) Routine gynecological examination (V72.31) Active confirmed Diag Problem Exercises teaching, guidance, and counseling (046820656) Exercise counseling (V65.41) Active confirmed Diag Problem Screening for malignant neoplasm of colon (977390663) Special screening for malignant neoplasms, colon (V76.51) Active confirmed Major Plan Of Treatment No Information Insurance Providers Payer Name Payer Address Payer Phone Subscriber Number Group Number Insured Name Patient Relationship to Insured Coverage Start Date Coverage End Date MEDICARE [address] [place], [place] [id number] NATALY JAIN Self - patient is the insured 1 [employer] [address] [place] [address] [phone] [id number] SILVESTRE JAINRIETTA Self - patient is the insured 1
--- OUTSIDE RECORDS SUMMARY | 2024-12-02 16:21 | XMS_ITS | Data Portability ---
Author Organization [place] [facility] angie Fermin, ANICETO, [employer] Address [address] [place] [address] [place] [id number] Care Team Providers Care Human Resource Assistant Name Role Phone ATIYA LIM Primary Care Provider [phone] JALEEL ORELLANA Orthopedist ALBERTA JOYA Pain Management ARNIE BUSTAMANTE OTHER Assessment No assessment recorded. Plan of Treatment Reminders Order Date Submit Date Provider Last Modified By Organization Details Last Modified Time Details Appointments None recorded. Lab CMP, serum or plasma 2021 [facility] ([facility]), [address], [place], [address], 09:24:20 HbA1c (hemoglob in A1c), blood 2021 [facility] ([facility]), [address], [place], [address], 09:24:23 iron + total iron-bind ing capacity (TIBC), serum 2021 [facility] ([facility]), [address], [place], [address], 09:24:21 ferritin, serum or plasma 2021 [facility] ([facility]), [address], [place], [address], 09:24:22 CBC w/ auto diff 2021 [place] [facility]), [address] , [address], [place], [address], 09:24:19 vitamin D, 25-hydrox y + 1,25-dihy droxy, serum 2021 [facility] [address] [place], [address], 14:36:53 lipid panel, serum 2021 [facility] [address] [place], [address], 14:36:53 CMP, serum or plasma 2021 [facility] [address] [place], [address], 14:36:52 CBC w/ auto diff 2021 [facility] [address] [place], [address], 14:36:52 TSH + free T4, serum 2021 [facility] [address] [place], [address], 14:36:51 Referral None recorded. Procedures None recorded. Surgeries None recorded. Imaging DEXA, axial skeleton + vertebral fracture assessmen t 2021 [facility] (Diagnostic [facility]), [address], [place], [address], 18:24:36 NM, myocardia l perfusion scan, w/ stress - Please do Mariluz Scan only, NO TREADMILL 2020 [email or web address] [id number] [facility] (Diagnostic Imaging), [address], [place], [address], 12:04:59 Medication Orders olmesarta n 40 mg tablet 2021 [email or web address], [facility], [place], [address], 13:34:24 citalopra m 20 mg tablet 2021 [facility] [place], [address], 13:12:11 meclizine 25 mg tablet 2021 [facility], [facility], [place], [address], 13:12:10 pantopraz ole 40 mg tablet,de layed release 2021 [facility], [facility], [place], [address], 13:12:13 oxybutyni n chloride ER 10 mg tablet,ex tended release 24 hr 2021 [id number] [address], [place], [address], 13:10:36 olmesarta n 40 mg tablet 2020 [email or web address] [facility], [place], [address], 19:28:07 citalopra m 20 mg tablet 2020 021 [facility], [place], [address], 1 14:27:53 amlodipin e 5 mg tablet [email or web address] [facility] [address] [facility], [place], [address], 2 13:03:53 olmesarta n 40 mg tablet 2020 021 [email or web address], [place], [address], 17:07:39 pantopraz ole 40 mg tablet,de layed release 2020 021 [facility], [place], [address], 1 12:28:29 citalopra m 20 mg tablet 2020 021 [facility], [place], [address], 12:28:27 amlodipin e 5 mg tablet 2020 021 [address] [id number], [address] [address], [place], [address], 13:03:53 Patient TargetsNo targets recorded. Patient Instructions [...] uIU/m L 0.450- 4.500 Not Available [facility] ([facility]) [address] [place], [address], 11/30/2021 14:36:51 11/30/19 22 11/30/2021 TSH+F REE T4 T4,free(dire ct) 0.96 NG/dL 0.82-1 .77 Not Available [facility] ([facility]) [address] [place], [address], 11/30/2021 14:36:51 11/30/19 22 11/29/2021 CBC WITH DIFFE RENTI AL/PL ATELE T WBC 6.3 x10e3 /uL 3.4-10 .8 Not Available [facility] ([facility]) [address] [place], [address], 11/30/2021 14:36:52 11/30/19 22 11/29/2021 CBC WITH DIFFE RENTI AL/PL ATELE T RBC 4.50 x10e6 /uL 3.77-5 .28 Not Available [facility] ([facility]) [address] [place], [address], 11/30/2021 14:36:52 11/30/19 22 11/29/2021 CBC WITH DIFFE RENTI AL/PL ATELE T hemoglobin 9.6 g/dL 11.1-1 5.9 below low normal Not Available [facility] ([facility]) [address] [place], [address], 11/30/2021 14:36:52 11/30/19 22 11/29/2021 CBC WITH DIFFE RENTI AL/PL ATELE T hematocrit 32.1 % 34.0-4 6.6 below low normal Not Available [facility] ([facility]) [address] [place], [address], 11/30/2021 14:36:52 11/30/19 22 11/29/2021 CBC WITH DIFFE RENTI AL/PL ATELE T MCV 71 fL 79-97 below low normal Not Available [facility] ([facility]) [address] [place], [address], 11/30/2021 14:36:52 11/30/19 22 11/29/2021 CBC WITH DIFFE RENTI AL/PL ATELE T MCH 21.3 pg 26.6-3 3.0 below low normal Not Available [facility] ([facility]) [address] [place], [address], 11/30/2021 14:36:52 11/30/19 22 11/29/2021 CBC WITH DIFFE RENTI AL/PL ATELE T MCHC 29.9 g/dL 31.5-3 5.7 below low normal Not Available [facility] ([facility]) [address] [place], [address], 11/30/2021 14:36:52 11/30/19 22 11/29/2021 CBC WITH DIFFE RENTI AL/PL ATELE T RDW 15.5 % 11.7-1 5.4 above high normal Not Available [facility] ([facility]) [address] [place], [address], 11/30/2021 14:36:52 11/30/19 22 11/29/2021 CBC WITH DIFFE RENTI AL/PL ATELE T platelets 443 x10e3 /uL 150-45 0 Not Available [facility] ([facility]) [address] [place], [address], 11/30/2021 14:36:52 11/30/19 22 11/29/2021 CBC WITH DIFFE RENTI AL/PL ATELE T neutrophils 60 % not estab. Not Available [facility] ([facility]) [address] [place], [address], 11/30/2021 14:36:52 11/30/19 22 11/29/2021 CBC WITH DIFFE RENTI AL/PL ATELE T lymphs 27 % not estab. Not Available [facility] ([facility]) [address] [place], [address], 11/30/2021 14:36:52 11/30/19 22 11/29/2021 CBC WITH DIFFE RENTI AL/PL ATELE T monocytes 10 % not estab. Not Available [facility] ([facility]) [address] [facility], [place], [address], 11/30/2021 14:36:52 11/30/19 22 11/29/2021 CBC WITH DIFFE RENTI AL/PL ATELE T eos 2 % not estab. Not Available [facility] ([facility]) [address] [facility], [place], [address], 11/30/2021 14:36:52 11/30/19 22 11/29/2021 CBC WITH DIFFE RENTI AL/PL ATELE T basos 1 % not estab. 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 0 Not Available [facility] ([facility]) [address] [place], [address], 11/30/2021 14:36:52 11/30/19 22 11/29/2021 CBC WITH DIFFE RENTI AL/PL ATELE T lymphs (absolute) 1.7 x10e3 /uL 0.7-3. 1 Not Available [facility] ([facility]) [address] [facility], [place], [address], 11/30/2021 14:36:52 11/30/19 22 11/29/2021 CBC WITH DIFFE RENTI AL/PL ATELE T monocytes(ab solute) 0.6 x10e3 /uL 0.1-0. 9 Not Available [facility] ([facility]) [address] [facility], [place], [address], 11/30/2021 14:36:52 11/30/19 22 11/29/2021 CBC WITH DIFFE RENTI AL/PL ATELE T eos (absolute) 0.2 x10e3 /uL 0.0-0. 4 Not Available [facility] ([facility]) [address] [facility], [place], [address], 11/30/2021 14:36:52 11/30/19 22 11/29/2021 CBC WITH DIFFE RENTI AL/PL ATELE T baso (absolute) 0.1 x10e3 /uL 0.0-0. 2 Not Available [facility] ([facility]) [address] [facility], [place], [address], 11/30/2021 14:36:52 11/30/19 22 11/29/2021 CBC WITH DIFFE RENTI AL/PL ATELE T immature granulocytes 0 % not estab. Not Available [facility] ([facility]) [address] [facility], [place], [address], 11/30/2021 14:36:52 11/30/19 22 11/29/2021 CBC WITH DIFFE RENTI AL/PL ATELE T immature grans (abs) 0.0 x10e3 /uL 0.0-0. 1 Not Available [facility] ([facility]) [address] [facility], [place], [address], 11/30/2021 14:36:52 11/30/19 22 11/29/2021 CBC WITH DIFFE RENTI AL/PL ATELE T NRBC DRAG CAR RACER Not Available [facility] ([facility]) [address] [facility], [place], [address], 11/30/2021 14:36:52 11/30/19 22 11/29/2021 CBC WITH DIFFE RENTI AL/PL ATELE T hematology comments: DRAG CAR RACER Not Available [facility] ([facility]) [address] [facility], [place], [address], 11/30/2021 14:36:52 11/30/19 22 11/29/2021 COMP. METAB OLIC PANEL (14) glucose 131 mg/dL 65-99 above high normal Not Available [facility] ([facility]) [address] [facility], [place], [address], 11/30/2021 14:36:52 11/30/19 22 11/29/2021 COMP. METAB OLIC PANEL (14) BUN 14 mg/dL 8-27 Not Available [facility] ([facility]) [address] [place], [address], 11/30/2021 14:36:52 11/30/19 22 11/29/2021 COMP. METAB OLIC PANEL (14) creatinine 0.99 mg/dL 0.57-1 .00 Not Available [facility] ([facility]) [address] [facility], [place], [address], 11/30/2021 14:36:52 11/30/19 22 11/29/2021 COMP. METAB OLIC PANEL (14) eGFR 59 mL/mi n/1.7 3 >59 below low normal Not Available [facility] ([facility]) [address] [place], [address], 11/30/2021 14:36:52 11/30/19 22 11/29/2021 COMP. METAB OLIC PANEL (14) BUN/creatini ne ratio 14 12-28 Not Available [facility] ([facility]) [address] [place], [address], 11/30/2021 14:36:52 11/30/19 22 11/29/2021 COMP. METAB OLIC PANEL (14) sodium 139 mmol/ L 134-14 4 Not Available [facility] ([facility]) [address] [place], [address], 11/30/2021 14:36:52 11/30/19 22 11/29/2021 COMP. METAB OLIC PANEL (14) potassium 5.0 mmol/ L 3.5-5. 2 Not Available [facility] ([facility]) [address] [place], [address], 11/30/2021 14:36:52 11/30/19 22 11/29/2021 COMP. METAB OLIC PANEL (14) chloride 102 mmol/ L 96-106 Not Available [facility] ([facility]) [address] [place], [address], 11/30/2021 14:36:52 11/30/19 22 11/29/2021 COMP. METAB OLIC PANEL (14) carbon dioxide, total 23 mmol/ L 20-29 Not Available [facility] ([facility]) [address] [place], [address], 11/30/2021 14:36:52 11/30/19 22 11/29/2021 COMP. METAB OLIC PANEL (14) calcium 9.2 mg/dL 8.7-10 .3 Not Available [facility] ([facility]) [address] [facility] [place], [address], 11/30/2021 14:36:52 11/30/19 22 11/29/2021 COMP. METAB OLIC PANEL (14) protein, total 6.9 g/dL 6.0-8. 5 Not Available [facility] ([facility]) [address] [facility] [place], [address], 11/30/2021 14:36:52 11/30/19 22 11/29/2021 COMP. METAB OLIC PANEL (14) albumin 4.3 g/dL 3.7-4. 7 Not Available [facility] ([facility]) [address] [facility], [place], [address], 11/30/2021 14:36:52 11/30/19 22 11/29/2021 COMP. METAB OLIC PANEL (14) globulin, total 2.6 g/dL 1.5-4. 5 Not Available [facility] ([facility]) [address] [facility], [place], [address], 11/30/2021 14:36:52 11/30/19 22 11/29/2021 COMP. METAB OLIC PANEL (14) A/G ratio 1.7 1.2-2. 2 Not Available [facility] ([facility]) [address] [facility], [place], [address], 11/30/2021 14:36:52 11/30/19 22 11/29/2021 COMP. METAB OLIC PANEL (14) bilirubin, total 0.2 mg/dL 0.0-1. 2 Not Available [facility] ([facility]) [address] [facility], [place], [address], 11/30/2021 14:36:52 11/30/19 22 11/29/2021 COMP. METAB OLIC PANEL (14) alkaline phosphatase 76 IU/L 44-121 Not Available [facility]) [address] [facility], [place], [address], 11/30/2021 14:36:52 11/30/19 22 11/29/2021 COMP. METAB OLIC PANEL (14) AST (SGOT) 13 IU/L 0-40 Not Available [facility] ([facility]) [address] [facility], [place], [address], 11/30/2021 14:36:52 11/30/19 22 11/29/2021 COMP. METAB OLIC PANEL (14) ALT (SGPT) 15 IU/L 0-32 Not Available [facility] ([facility]) [address] [place], [address], 11/30/2021 14:36:52 11/30/19 22 11/29/2021 LIPID PANEL cholesterol, total 181 mg/dL 100-19 9 Not Available [facility] ([facility]) [address] [place], [address], 11/30/2021 14:36:53 11/30/19 22 11/29/2021 LIPID PANEL triglyceride s 194 mg/dL 0-149 above high normal Not Available [facility] ([facility]) [address] [place], [address], 11/30/2021 14:36:53 11/30/19 22 11/29/2021 LIPID PANEL HDL cholesterol 48 mg/dL >39 Not Available [facility]) [address] [place], [address], 11/30/2021 14:36:53 11/30/19 22 11/29/2021 LIPID PANEL VLDL cholesterol jamison 33 mg/dL 5-40 Not Available [facility]) [address] [place], [address], 11/30/2021 14:36:53 11/30/19 22 11/29/2021 LIPID PANEL LDL chol calc ([facility]) 100 mg/dL 0-99 above high normal Not Available [facility] ([facility]) [address] [place], [address], 11/30/2021 14:36:53 11/30/19 22 11/29/2021 LIPID PANEL 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 Monica rich [place]: [facility] . 2. Fransisco whtiley MF, Jhon hameed [place], Anup off-F errar i YOUNGBLOOD, et al. Evalu ation , treat ment, and preve ntion of vitam in D defic iency : an Endoc rine Socie ty clini jamison pract ice guide line. JCEM. 2010; 96(7) :1911 -30. Not Available [facility] ([facility]) [address] [facility], [place], [address], 11/30/2021 14:36:53 02/23/20 22 02/23/2022 CBC WITH PLATE LET AND DIFFE RENTI AL WBC 7.9 K/uL 3.8-11 .5 Not Available [facility]) [address] [facility] [address], [place], [address], 02/23/2022 09:24:18 02/23/20 22 02/23/2022 CBC WITH PLATE LET AND DIFFE RENTI AL red blood cell count (RBC) 4.67 M/mm3 3.60-5 .30 Not Available [facility]) [address] [place] [address] [address], [place], [address], 02/23/2022 09:24:18 02/23/20 22 02/23/2022 CBC WITH PLATE LET AND DIFFE RENTI AL hemoglobin (HGB) 13.1 gm/dL 11.5-1 5.5 Not Available [facility] ([facility]) [address] [place] [address] [address], [place], [address], 02/23/2022 09:24:18 02/23/20 22 02/23/2022 CBC WITH PLATE LET AND DIFFE RENTI AL hematocrit (HCT) 39.1 % 35.2-4 6.4 Not Available [facility] ([facility]) [address] [place] [address] [address], [place], [address], 02/23/2022 09:24:18 02/23/20 22 02/23/2022 CBC WITH PLATE LET AND DIFFE RENTI AL MCV 83.7 fL 79.0-9 9.0 Not Available [facility] ([facility]) [address] [place] [address] [address], [place], [address], 02/23/2022 09:24:18 02/23/20 22 02/23/2022 CBC WITH PLATE LET AND DIFFE RENTI AL MCH 28.1 pg 26.9-3 5.0 Not Available [facility]) [address] [place] [address] [address], [place], [address], 02/23/2022 09:24:18 02/23/20 22 02/23/2022 CBC WITH PLATE LET AND DIFFE RENTI AL MCHC 33.5 g/dL 30.4-3 4.8 Not Available [facility] ([facility]) [address] [facility] [address], [place], [address], 02/23/2022 09:24:18 02/23/20 22 02/23/2022 CBC WITH PLATE LET AND DIFFE RENTI AL RDW NM fL 38.6-5 3.8 Unabl e to repor t RDW due to dimor phic red cell popul ation Not Available [facility] ([facility]) [address] [facility] [address], [place], [address], 02/23/2022 09:24:18 02/23/20 22 02/23/2022 CBC WITH PLATE LET AND DIFFE RENTI AL platelet count 332 K/cum m 137-39 7 Not Available [facility] ([facility]) [address] [place] [address] [address], [place], [address], 02/23/2022 09:24:18 02/23/20 22 02/23/2022 MANUA L DIFFE RENTI AL REVIE W/COU NT absolute immature granulocyte manual 0.00 K/uL 0.00-0 .03 Not Available [facility]) [facility] [address], [place], [address], 02/23/2022 09:24:20 02/23/20 22 02/23/2022 MANUA L DIFFE RENTI AL REVIE W/COU NT absolute basophil count manual 0.1 K/uL 0.0-0. 1 Not Available [facility]) [address] [place] [address] [address], [place], [address], 02/23/2022 09:24:20 02/23/20 22 02/23/2022 MANUA L DIFFE RENTI AL REVIE W/COU NT absolute eosinophil count manual 0.2 K/uL 0.0-0. 6 Not Available [facility] [address] [facility] [address], [place], [address], 02/23/2022 09:24:20 02/23/20 22 02/23/2022 MANUA L DIFFE RENTI AL REVIE W/COU NT absolute monocyte count manual 0.8 K/uL 0.3-1. 0 Not Available [facility]) [facility] [address], [place], [address], 02/23/2022 09:24:20 02/23/20 22 02/23/2022 MANUA L DIFFE RENTI AL REVIE W/COU NT absolute lymphocyte count manual 3.0 K/uL 0.9-3. 6 Not Available [facility]) [facility] [address], [place], [address], 02/23/2022 09:24:20 02/23/20 22 02/23/2022 MANUA L DIFFE RENTI AL REVIE W/COU NT absolute neutrophil count manual 3.9 K/uL 2.0-8. 2 Not Available [facility] ([facility]) [address] [place] [address] [address], [place], [address], 02/23/2022 09:24:20 02/23/20 22 02/23/2022 MANUA L DIFFE RENTI AL REVIE W/COU NT microcytosis SLIGHT Not Available [facility] ([facility]) [address] [place] [address] Dr [address], [place], [address], 02/23/2022 09:24:20 02/23/20 22 02/23/2022 MANUA L DIFFE RENTI AL REVIE W/COU NT anisocytosis MODERA TE Not Available [facility] ([facility]) [address] [place] [address] Dr [address], [place], [address], 02/23/2022 09:24:20 02/23/20 22 02/23/2022 MANUA L DIFFE RENTI AL REVIE W/COU NT poikilocytos is SLIGHT Not Available [facility] [address] [place] [address] Dr [address], [place], [address], 02/23/2022 09:24:20 02/23/20 22 02/23/2022 MANUA L DIFFE RENTI AL REVIE W/COU NT fragmented cells FEW Not Available [facility] [address] [place] [address] [address], [place], [address], 02/23/2022 09:24:20 02/23/20 22 02/23/2022 MANUA L DIFFE RENTI AL REVIE W/COU NT ovalocytes FEW Not Available [facility]) [address] [place] [address] Dr [address], [place], [address], 02/23/2022 09:24:20 02/23/20 22 02/23/2022 MANUA L DIFFE RENTI AL REVIE W/COU NT platelet slide review NORMAL Plate let clump s noted . True plate let count may be highe r than repor esvin. Not Available [facility]) [address] [place] [address] Dr [address], [place], [address], 02/23/2022 09:24:20 02/23/20 22 02/23/2022 MANUA L DIFFE RENTI AL REVIE W/COU NT neutrophils- manual 49 % 41-77 Not Available [facility]) [address] [place] [address] Dr [address], [place], [address], 02/23/2022 09:24:20 02/23/20 22 02/23/2022 MANUA L DIFFE RENTI AL REVIE W/COU NT lymphocytes manual 30 % 14-48 Not Available [facility] ([facility]) [address] [place] [address] Dr [address], [place], [address], 02/23/2022 09:24:20 02/23/20 22 02/23/2022 MANUA L DIFFE RENTI AL REVIE W/COU NT monocytes manual 10 % 4-13 Not Available [facility]) [address] [place] [address] Dr [address], [place], [address], 02/23/2022 09:24:20 02/23/20 22 02/23/2022 MANUA L DIFFE RENTI AL REVIE W/COU NT eosinophils manual 2 % 0-8 Not Available [facility] ([facility]) [address] [place] [address] Dr [address], [place], [address], 02/23/2022 09:24:20 02/23/20 22 02/23/2022 MANUA L DIFFE RENTI AL REVIE W/COU NT basophils manual 1 % 0-1 Not Available [facility] ([facility]) [address] [place] [address] Dr [address], [place], [address], 02/23/2022 09:24:20 02/23/20 22 02/23/2022 MANUA L DIFFE RENTI AL REVIE W/COU NT atypical lymphocytes 8 % 0-12 Not Available [facility]) [address] [place] [address] Dr [address], [place], [address], 02/23/2022 09:24:20 02/23/20 22 02/23/2022 COMPR EHENS DARYN METAB OLIC PANEL (CMP) sodium 141 mEq/L 135-14 5 Not Available [facility]) [address] [place] [address] Dr [address], [place], [address], 02/23/2022 09:24:20 02/23/20 22 02/23/2022 COMPR EHENS DARYN METAB OLIC PANEL (CMP) potassium 4.3 mEq/L 3.5-5. 3 Not Available [facility]) [address] [place] [address] [address], [place], [address], 02/23/2022 09:24:20 02/23/20 22 02/23/2022 COMPR EHENS DARYN METAB OLIC PANEL (CMP) chloride 104 mEq/L 97-108 Not Available [facility]) [address] [place] [address] Dr [address], [place], [address], 02/23/2022 09:24:20 02/23/20 22 02/23/2022 COMPR EHENS DARYN METAB OLIC PANEL (CMP) CO2 25 mEq/L 22-32 Not Available [facility] ([facility]) [address] [place] [address] Dr Carter, [place], [address], 02/23/2022 09:24:20 02/23/20 22 02/23/2022 COMPR EHENS DARYN METAB OLIC PANEL (CMP) glucose 94 mg/dL 65-99 Not Available [facility] [facility] [address] [place] [address] Dr Carter, [place], [address], 02/23/2022 09:24:20 02/23/20 22 02/23/2022 COMPR EHENS DARYN METAB OLIC PANEL (CMP) BUN 19 mg/dL 8-23 Not Available [facility] ([facility]) [address] [place] [address] Dr Carter, [place], [address], 02/23/2022 09:24:20 02/23/20 22 02/23/2022 COMPR EHENS DARYN METAB OLIC PANEL (CMP) creatinine 0.84 mg/dL 0.50-1 .00 Not Available [facility] ([facility]) [address] [place] [address] Dr Carter, [place], [address], 02/23/2022 09:24:20 02/23/20 22 02/23/2022 COMPR EHENS DARYN METAB OLIC PANEL (CMP) calcium 9.5 mg/dL 8.6-10 .4 Not Available [facility] ([facility]) [address] [place] [address] Dr Carter, [place], [address], 02/23/2022 09:24:20 02/23/20 22 02/23/2022 COMPR EHENS DARYN METAB OLIC PANEL (CMP) protein 6.8 g/dL 6.0-8. 3 Not Available [facility] ([facility]) [address] [place] [address] Dr Carter, [place], [address], 02/23/2022 09:24:20 02/23/20 22 02/23/2022 COMPR EHENS DARYN METAB OLIC PANEL (CMP) albumin 4.2 g/dL 3.5-5. 3 Not Available [facility] ([facility]) [address] [place] [address] Dr Carter, [place], [address], 02/23/2022 09:24:20 02/23/20 22 02/23/2022 COMPR EHENS DARYN METAB OLIC PANEL (CMP) alkaline phosphatase 64 IU/L 35-121 Not Available [facility] ([facility]) [address] [place] [address] Dr Carter, [place], [address], 02/23/2022 09:24:20 02/23/20 22 02/23/2022 COMPR EHENS DARYN METAB OLIC PANEL (CMP) ALT (SGPT) 21 IU/L <5-47 Not Available [facility] ([facility]) [address] [place] [address] Dr Carter, [place], [address], 02/23/2022 09:24:20 02/23/20 22 02/23/2022 COMPR EHENS DARYN METAB OLIC PANEL (CMP) AST (SGOT) 15 IU/L <5-40 Not Available [facility] ([facility]) [address] [place] [address] Dr Carter, [place], [address], 02/23/2022 09:24:20 02/23/20 22 02/23/2022 COMPR EHENS DARYN METAB OLIC PANEL (CMP) bilirubin, total 0.2 mg/dL <0.2-1 .2 Not Available [facility] ([facility]) [address] [place] [address] Dr Carter, [place], [address], 02/23/2022 09:24:20 02/23/20 22 02/23/2022 COMPR EHENS DARYN METAB OLIC PANEL (CMP) A/G ratio 1.6 mg/dL 1.1-2. 5 Not Available [facility] [address] [place] [address] Dr Carter, [place], [address], 02/23/2022 09:24:20 02/23/20 22 02/23/2022 COMPR EHENS DARYN METAB OLIC PANEL (CMP) estimated GFR (black) 77 mL/mi n/1.7 3m2 >59 Not Available [facility]) [address] [place] [address] Dr Carter, [place], [address], 02/23/2022 09:24:20 02/23/20 22 02/23/2022 COMPR EHENS [...] muscl e mass or diet. Not Available [facility] ([facility]) [address] [place] [address] Dr Carter, [place], [address], 02/23/2022 09:24:20 02/23/20 22 02/23/2022 PERCE NT SATUR ATION WITH IRON AND IBC iron 80 ug/dL 37-145 Not Available [facility] ([facility]) [address] [place] [address] Dr Carter, [place], [address], 02/23/2022 09:24:21 02/23/20 22 02/23/2022 PERCE NT SATUR ATION WITH IRON AND IBC iron binding cap 386 ug/dL 250-45 0 Not Available [facility] ([facility]) [address] [place] [address] Dr Carter, [place], [address], 02/23/2022 09:24:21 02/23/20 22 02/23/2022 PERCE NT SATUR ATION WITH IRON AND IBC percent saturation 21 % 15-50 Not Available [facility] ([facility]) [address] [place] [address] Dr Carter, [place], [address], 02/23/2022 09:24:21 02/23/20 22 02/23/2022 BELEM TIN ferritin 36.5 NG/mL 13.0-3 01.0 Not Available [facility] ([facility]) [address] [place] [address] Dr Carter, [place], [address], 02/23/2022 09:24:22 02/23/20 22 02/23/2022 HEMOG LOBIN [...] -[facility] ([facility]) [address], [place], [address], 02/23/2022 09:24:23 02/23/20 22 02/23/2022 HEMOG LOBIN A1C estimated average glucose 123 mg/dL Carbon ge Gluco se is calcu lated using the equat ion AG = (28.7 x HgbA1 c) - 46.7 based on the guide lines estab lishe d by the ADA. Not Available [facility] ([facility]) [address], [place], [address], 02/23/2022 09:24:23 10/10/19 21 09/21/2020 CT, angio [...] [facility] [address], [place], [address], 07/09/2021 10:53:42 04/20/20 22 04/20/2022 DEXA, axial skele ton + verte bral fract ure asses sment No observ ation record ed. [email or web address] [facility] (Administrati on) [address], [place], [address], 04/25/2022 14:32:46 Result Notes None recorded. Problems Name Problem SNOMED Code Status Onset Date Resolution Date Notes Provider Name and Address Organization Details Recorded Time Gastroesophag eal reflux disease without esophagitis 219370221 Active 2018 Not Available [facility] 14:09:48 Anxiety 98765296 Active 2018 Not Available [facility] 14:09:48 Diarrhea 19957287 Active 2018 Not Available [facility] 14:09:48 Hemorrhoids 63574706 Active 2018 Not Available [facility] 14:09:48 Hyperlipidemi a 50433566 Active 2018 Not Available [facility] 14:09:48 Hypertensive disorder 87471103 Active 2018 Not Available [facility] 14:09:48 Prolapsed lumbar intervertebra l disc 890233095 Active 2018 Not Available [facility] 14:09:48 Prediabetes 258189163 Active 2018 Not Available [facility] 14:09:48 Problem Notes None recorded. Procedures Surgical History Date Name Laterality Status Provider Name and Address Organization Details Recorded Time 01/14/20 21 Most Recent Mammogram completed FEDERICO TORRES [place] [facility] 03/08/2021 13:55:22 01/16/20 19 mammography completed Julia Harding [place] [facility] 04/03/2019 13:18:13 Hysterectomy completed Atiya Dior MD [address], [place], [address], [facility] [place] [facility] 04/03/2019 10:04:22 Appendectomy completed Atiya Dior MD [address] [place] [address] [address] [facility], [place], [address], On license of [facility], [place] 04/03/2019 10:04:33 Tubal Ligation completed Atiya Dior MD [address] [place] [address] Unit [facility], [place], [address], On license of [facility], [place] 04/03/2019 10:04:42 Tonsillectomy completed Atiya Dior MD [address] [place] [address] Unit [facility], [place], [address], On license of [facility], [place] 04/03/2019 10:04:53 Cholecystectomy completed Atiya Dior MD [address] [place] [address], [address], On license of [facility], [place] 04/03/2019 10:05:00 Imaging Results None recorded. Procedure Notes None recorded. Medical Equipment None Reported. Allergies Allergen ID Allergen Name Allergen Category Reaction Reaction Severity Criticality Documentation Date Start Date Code Code System Note Provider Name and Address Organization Details Recorded Time 179 codeine medicatio n Not available Not available Not available 04/03/2019 2670 RxNorm Atiya quarles MD [address] [place] [address], [address], On license of [facility], [place] 9 10:01:14 180 acetamino phen / oxycodone medicatio n Not available Not available Not available 04/03/2019 92753 3 RxNorm Atiya quarles MD [address] [place] [address] [place] [address], [address], On license of [facility], [place] 9 10:01:20 Medications Name Sig Start Date [...] Updated DateTime 08/23/2021 97.4 [degF] 40.3 kg/m2 18276.61 g SHARONA HIGGINS, DIOR-C [address], [place], [address], [place] [facility] 08/23/2021 12:58:22 Date Recorded Body height Oxygen saturation Oxygen saturation in Arterial blood by Pulse oximetry Respiratory rate Heart rate Systolic And Diastolic Provider Name and Address Organization Details Last Updated DateTime 2 154.94 cm 96 % 96 % 18 /min 103 /min 157/81 mm[Hg] FEDERICO TORRES [facility], [place] 2 13:21:21 Date Recorded Body height Heart rate Respiratory rate Oxygen saturation Oxygen saturation in Arterial blood by Pulse oximetry Body temperature Body mass index (BMI) Body weight Systolic And Diastolic Provider Name and Address Organization Details Last Updated DateTime 1 154.94 cm 90 /min 16 /min 96 % 96 % 97.5 [degF] 39 kg/m2 08946.1 8 g 149/78 mm[Hg] Mary Bhagat [facility], [place] 1 12:33:24 Date Recorded Body height Body temperature Heart rate Respiratory rate Oxygen saturation Oxygen saturation in Arterial blood by Pulse oximetry Body mass index (BMI) Body weight Systolic And Diastolic Provider Name and Address Organization Details Last Updated DateTime 1 154.94 cm 98 [degF] 101 /min 18 /min 98 % 98 % 38.1 kg/m2 19994.2 5 g 125/77 mm[Hg] Mary Bhagat [facility], [place] 1 11:58:26 Date Recorded Body height Body temperature Body mass index (BMI) Body weight Respiratory rate Oxygen saturation Oxygen saturation in Arterial blood by Pulse oximetry Heart rate Systolic And Diastolic Provider Name and Address Organization Details Last Updated DateTime 2 154.94 cm 97.7 [degF] 40.2 kg/m2 59979.1 g 16 /min 96 % 96 % 93 /min 136/85 mm[Hg] CARMELLA STEINBERG [facility], [place] 2 12:41:15 Date Recorded Body height Body temperature Body mass index (BMI) Body weight Heart rate Respiratory rate Oxygen saturation Oxygen saturation in Arterial blood by Pulse oximetry Systolic And Diastolic Provider Name and Address Organization Details Last Updated DateTime 1 154.94 cm 97.8 [degF] 40.8 kg/m2 08319.9 5 g 94 /min 16 /min 95 % 95 % 143/75 mm[Hg] FEDERICO TORRES [facility], [place] 1 13:51:43 Social History Question Answer Notes LastModified by Organizat ion Details LastModified Time Tobacco Smoking Status Former Smoker Atiya Dior MD [address], [place], [address], [facility] - [facility], [place] 04/03/2019 10:06:33 Do You Have An Advance Directive? Yes Information not available 04/03/2019 What Is Your Level Of Caffeine Consumption? Occasional [email or web address] Information not available 04/03/2019 What Type Of Diet Are You Following? REGULAR Information not available 03/08/2021 What Is The Highest Grade Or Level Of School You Have Completed Or The Highest Degree You Have Received? [id number] Information not available 03/08/2021 When Did You [...] not available 03/08/2021 General Stress Level Low [email or web address] Information not available 04/03/2019 How Many Years Have You Smoked Tobacco? 36 Information not available 03/08/2021 Sex: Unknown Functional Status Question Answer Note LastModified by Organizat ion Details LastModified Time Do you use any illicit or recreational drugs? No Information not available 03/08/2021 What is your level of alcohol consumption? None [email or web address] Information not available 04/03/2019 Are you currently employed? No Information not available 03/08/2021 Are you able to walk? YESWOREST Information not available 03/08/2021 Are you able to care for yourself? Yes [email or web address] Information not available 04/03/2019 What is your occupation? retired [email or web address] Information not available 04/03/2019 What is your [...] split virus, quadrivalent, preservative 9 completed [place] 10/09/2020 12:31:23 zoster recombinant 0 completed [place] 10/09/2020 12:31:23 Influenza, split virus, quadrivalent, preservative 0 completed [place] 10/09/2020 12:31:23 zoster recombinant 1 completed [place] 10/09/2020 12:31:23 COVID-19, mRNA, LNP-S, PF, 30 mcg/0.3 mL dose 1 completed FEDERICO TORRES [place] 03/22/2021 08:30:16 Past Encounters Encounter ID Performer Location Encounter Start Date Encounter Closed Date Diagnosis/Indication Diagnosis SNOMED-CT Code Diagnosis ICD10 Code Diagnosis Note [id number] Atiya Dior MD Main Office [address] [place] [address] [place] [id number] 04/03/2019 13:02:56 04/03/2019 13:53:59 Gastroesophageal reflux disease without esophagitis 764077250 K21.9 pt having reflux every day and using tums advised pt to try pepcid - will give script avoid dietary triggers weight loss advised Prolapsed lumbar intervertebral disc 754811194 M51.[address] Joya - getting shots every 90 days. debating surgery. Screening for malignant neoplasm of colon 348571490 Z12.11 pt has always done colonoscop y that was normal. she lives alone and getting to and from a colonoscop y would be difficult. will order cologuard. Anxiety 90100669 F41.9 stable on current meds. will continue current care. Hypertensive disorder 38 596485 I10 BP goal < 150/90 continue current care low salt diet and daily exercise recommende d Monitor BP at home and Return to care if elevated above 150/90 >50% of the time. Hyperlipidemia 76865344 E78.5 stable on current meds. will continue current care - weight loss advised and check labs. Prediabetes 374882715 R7 3.03 last A1c was 6.3 advised lifestyle changes [id number] Sukhwinder Vazquez MD Main Office [address] [place] [id number] 07/04/2019 13:53:17 07/04/2019 15:09:10 Postural dizziness 801018668 R42 -suspect orthostati c in nature as only occurs when standing -BP normal however HR goes from 92 to 110 upon standing and positive dizziness -no dizziness/ nystagmus with head thrust -check BMP, hgb -stop HCTZ and continue olmsartan only -orthostat ic dizziness education given Tachycardia 7320108 R00. 0 suspect all orthostati c related, however resting still in 90's is normal for her. -standing >110 -EKG shows normal rhythm Low back pain 425274782 M54.5 Needs to have back surgery and requires clearance. -no exertional or non exertional chest pain -exercises 3 times week -Intermedi ate risk surgery with 4 mets , no clinical risk factors -BMP, cbc normal can proceed to surgery without further testing - medically optimized for surgery. -EKG shows NSR at rest Pre-surger y evaluation 711475581 Z01.818 pt needs back surgery clearance. labs and EKG performed and were WNL. medically optimized for surgery. [id number] Atiya Dior MD Main Office [address] [employer] [employer] [address] [place] [id number] 1 07/25/2019 13:21:07 07/25/2019 13:47:25 Hypertensive disorder 49184444 I10 BP goal < 150/90 will increase olmesartan to 40mg daily to help with BP low salt diet and daily exercise recommende d Monitor BP at home and Return to care if elevated above 150/90 >50% of the time. [id number] BARBARA MACIAS Main Office [address] [employer] [address] [place] [id number] 04/21/2020 11:49:49 04/21/2020 12:38:15 Anxiety 21937108 F41.9 Patient states that covid and social distancing from friends/fa elba has been rough for her lately. Patient states she is relying on family more and doing well on her current medication . Patient encouraged to continue to stay safe while interactin g with her neighbors and continue to stay in touch with family members. [facility]. Gastroesop hageal reflux disease without esophagitis 674836569 K21.9 Patient advised to avoid trigger foods, such as chocolate and pasta, and stay hydrated. Patient will start protonix today and monitor symptoms. Diarrhea 89173943 R19.7 Discussed the benefits of a daily probiotic. Patient will start taking this week. Encouraged patient to stay hydrated and maintain healthy diet while avoiding any trigger foods such as diary. [id number] Atiya Dior MD Main Office [address] [employer] [employer] [address] [place] [id number] 1 10/09/2020 11:56:00 10/09/2020 12:56:01 Spinal stenosis of lumbar region 45726464 M48.061 notes, labs and imaging from hospital admission reviewed. S/p surgery and doing well post op Keep up f/u with surgeon natasha removed Hypertensive disorder 38 798197 I10 BP goal < 150/90 continue olmesartan 40mg daily will add amlodipine 2.5 - 5mg daily - SE of medication discussed low salt diet and daily exercise recommende d Monitor BP at home and Return to care if elevated above 150/90 >50% of the time. Sinus tachycardia 360034 01 R00.0 EKG from hospital admission and labs reviewed suspect multifacto rial - pain, anxiety will check stress test but doubt cardiac as cause. [id number] Atiya Dior MD Main Office [address] [employer] [employer] [address] [place] [id number] 1 11/06/2020 11:47:01 11/06/2020 12:32:19 Hypertensive disorder 98593167 I10 BP goal < 150/90 continue olmesartan 40mg daily will add amlodipine 2.5 - 5mg daily - SE of medication discussed low salt diet and daily exercise recommende d Monitor BP at home and Return to care if elevated above 150/90 >50% of the time. Anxiety 29111375 F41.9 stable on current meds. will continue current care. Gastroesop hageal reflux disease without esophagitis 947519641 K21.9 doing well on PPI avoid dietary triggers weight loss advised [id number] KARINA HIGUERA FF Main Office [address] [place] [id number] 1 03/08/2021 13:29:23 03/08/2021 14:30:48 Hypertensive disorder 28068819 I10 BP log reviewed - will stop amlodipine - has only been taking 1/2 of her 5 mg amlodipine pill daily BP goal < 150/90 low salt diet and daily exercise recommende d Monitor BP at home and Return to care if elevated above 150/90 >50% of the time. Anxiety 84746421 F41.9 doing well on celexa, will renew [id number] Atiya Dior MD Main Office [address] [employer] [employer] [address] [place] [id number] 08/23/2021 12:28:27 08/23/2021 13:25:06 Seasonal allergic rhinitis 266903454 J30.2 medication - advised flonase and anti-hista mine, OTC cough syrup or honey supportive care otherwises uspect that dizziness may be coming from congestion related to allergies Hypertensive disorder 38 497235 I10 BP goal < 140/90 Currently at goal and doing well on meds with no SE. Will continue current care. Low salt diet and daily exercise encouraged Advised to monitor BP at home and to RTC if >140/90 > 50% of the time Hyperlipidemia 85782260 E78.5 will update fasting labs Fatigue 84303379 R53.83 will check thyroid labs Vitamin D deficiency 347 84091 E55.9 currently supplement ing vitamin d3 - will update labs Overactive urinary bladder 145045381 N32.81 pt reports trouble sleeping related to getting up to use the bathroom every 2 hours at night - will start oxybutynin ER 10 mg tablet [id number] Atiya Dior MD Main Office [address] [place] [address] 02/22/2022 12:32:36 02/22/2022 13:23:59 Anxiety 16576647 F41.9 doing well on celexa, will renew Hypertensive disorder 38 391184 I10 BP goal < 140/90 Currently at goal and doing well on meds with no SE. Will continue current care. Low salt diet and daily exercise encouraged Advised to monitor BP at home and to RTC if >140/90 > 50% of the time Gastroesop hageal reflux disease without esophagitis 643614743 K21.9 stable on PPI. avoid dietary triggers Iron defic iency anemia 78320872 D50.9 last H/H was 9.6she is taking iron dailywill recheck labsmay need colonoscop y - denies bleeding Impaired g lucose tolerance 0046501 R73.02 BS was 131 on last set of labswill check A1c Vertigo 290489044 R42 prn use of meclizinew arning signs reviewed - ED if they present Menopausal and postmenopausal disorders 893946043 N95.9 Health Concerns Section Related Observation LastModified by Organization Detai ls LastModified Time None Recorded Concern Status LastModified by Organization Details LastModified Time None Recorded Advance Directives Directive Y: Payers Insurance Date Sequence Insurance Name Policy Number Policy [place] Covered Member ID Hamilton Member ID Guarantor Name 06/29/2022 1 [place] COURTNEY Abebein [id number] Yahaira Nima 04/15/2022 3 [place] [employer] [place]LE[place]) [id number] Mexia Nima [id number] Mex[place] Nima 04/15/2022 3 [place] [id number] [place] Nima [id number] Yahaira Nima 06/29/2022 2 [place] [id number] [place] Nima [id number] [place] Nima Notes Date Note Type Note Provider [...] is better now. Atiya Dior MD [address], [place], [address], On license of [facility], [place] 10/12/2020 10:55:40 11/06/2020 text/html Follow up, dl nt had recent surgery and is still healing from back surgery by Dr. Talley. Patient has been tachycardiac since surgery which has improved on its own. She says she is having trouble with pain in bilateral upper thighs with walking. She is only taking Tylenol for pain. she did not try propranolol. Atiya Dior MD [address], [place], [address], On license of [facility], [place] 11/10/2020 17:09:55 03/08/2021 text/html Here for f/u on blood pressure. Reports that even taking half of the 5 mg amlodipine tablet she is feeling too dizzy and fatigued. SHARONA HIGGINS, DIOR-C [address], [place], [address], On license of [facility], [place] 03/08/2021 19:35:15 08/23/2021 text/html Here to follow u p regarding blood pressure. She has brought her log with her today. BPs are averaging 120s/60s. Her heart rate is usually elevated in the 90s-100s. Has had some dizziness but reports she thinks its allergy related. Pt does have h/o vertigo. TOY HIGUERAC [address], [place], [address], [facility] - [facility], [place] 08/23/2021 13:48:40 02/22/2022 text/html She has been [...] up in the am. Atiya Dior MD [address] [facility] [address], [place], [address], [facility] [place] [facility] 02/25/2022 05:13:33 OBGyn Episode No OBEpisode recorded.
--- OUTSIDE RECORDS SUMMARY | 2024-12-02 16:21 | XMS_ITS | Patient Health Record ---
Author Organization [facility] Physician Yoseph es Billing Info Address [address] [place] [address] [place] [address] Support Name Relationship Address Phone Tricia Real Emergency Contact [address] [place] [address] Yahaira Herring Guarantor Unknown Allergies Allergen [...] Problem Status W/U Status Risk Notes Problem [id number] Spondylolisthesi s, lumbar region (M43.16) Active confirmed Problem 064451052 Radiculopathy, lumbar region (M54.16) Active confirmed Problem 20509336 Spinal stenosis, 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) Active confirmed Problem 655842407 Lumbar radiculopathy (M54.16) Active confirmed Problem 134054635 Lumbar spondylos is (M47.816) Active confirmed Problem 676409963 Lumbar radiculopathy, chronic (M54.16) Active confirmed Problem 595548558 Spondylolisthesi s, unspecified spinal region (M43.10) Active confirmed Problem 18853971 Hypertension, unspecified type (I10) Active confirmed Problem 406917139 Gastroesophageal reflux disease, unspecified whether esophagitis present (K21.9) Active confirmed Plan Of Treatment Future Test Test Name Order Date MRI-LUMBAR SPINE; W/O CONTRAST MATL (721 48) 08/18/2020 XRAY- SPINE LUMBAR AP AND LAT/SPOT (7210 0)([facility]) 11/12/2020 CT- LUMBAR SPINE W/O CONTRAST (06982)([facility]) 01/12/2021 XRAY- SPINE LUMBAR AP AND LAT/SPOT (7210 0)([facility]) 03/16/2021 CT- LUMBAR SPINE W/O CONTRAST (71940[facility] 07/13/2021 Insurance Providers Payer Name Payer Address Payer Phone Subscriber Number Group Number Insured Name Patient Relationship to Insured Coverage Start Date Coverage End Date [place]ARE [place] B [address] [facility] [place], [place] [id number] Yahaira Herring Self - patient is the insured [facility] PPO [address] [place], [place] [id number] Yahaira Herring Self - patient is the insured Medical (General) History Medical History History ICD Code Lumbar radiculopathy Hypertension, unspecified type I10 Gastroesophageal reflux disease, unspeci fied whether esophagitis present K21.9 Spondylolisthesis, unspecified spinal re gion M43.10 Surgical History Surgery Date(Month/Year) breast surgery appendectomy gall bladder surgery hysterectomy Hospitalization History Reason Date(Month/Year) See Above
== END 2024-12-02 16:44 | disposition home or self-care (01) ==
LOC: HO.HCS 15:05
PROVIDERS: PCP Internal Medicine; Visit Provider Nurse Practitioner Family
DX: K92.2 Gastrointestinal hemorrhage, unspecified (principal); I48.0 Paroxysmal atrial fibrillation; I63.9 Cerebral infarction, unspecified; I65.23 Occlusion and stenosis of bilateral carotid arteries; E78.5 Hyperlipidemia, unspecified; I10 Essential (primary) hypertension; Z09 Encounter for follow-up examination after completed treatment for conditions other than malignant neoplasm; G47.10 Hypersomnia, unspecified
CPT/HCPCS: 99215

== ENCOUNTER → 2024-12-02 15:04 | Outpatient (BNVA) | payer MEDICARE, SELFPAY | PROVIDERS: PCP Internal Medicine; Visit Provider Nurse Practitioner Family | DX: Z09 Encounter for follow-up examination after completed treatment for conditions other than malignant neoplasm (principal); I48.0 Paroxysmal atrial fibrillation; I65.23 Occlusion and stenosis of bilateral carotid arteries; I10 Essential (primary) hypertension; E78.5 Hyperlipidemia, unspecified; K92.2 Gastrointestinal hemorrhage, unspecified; G47.10 Hypersomnia, unspecified; Z79.01 Long term (current) use of anticoagulants; Z86.73 Personal history of transient ischemic attack (TIA), and cerebral infarction without residual deficits | CPT/HCPCS: 99212 ==

== ENCOUNTER → 2024-12-26 23:59 | Outpatient (BNV) | payer MEDICARE, SELFPAY | PROVIDERS: PCP Internal Medicine; Visit Provider Internal Medicine | DX: D50.9 Iron deficiency anemia, unspecified (principal); I69.351 Hemiplegia and hemiparesis following cerebral infarction affecting right dominant side; E11.9 Type 2 diabetes mellitus without complications | CPT/HCPCS: G0180 ==

== ENCOUNTER → 2025-01-02 15:56 | Outpatient (REF) | payer MEDICARE, SELFPAY ==
--- OUTSIDE RECORDS SUMMARY | 2025-01-02 16:05 | XMS_ITS | Patient Health Record ---
Author Organization [facility] Physician Yoseph es Billing Info Address [address] [place] [address] [place] [address] Support Name Relationship Address Phone Tricia Real Emergency Contact [address] [place] [address] Yahaira Herring Guarantor Unknown [phone] Allergies Allergen (clinical drug ingredient) Drug/Non Drug [...] Problem Status W/U Status Risk Notes Problem [id number] Spondylolisthesi s, lumbar region (M43.16) Active confirmed Problem 246997374 Radiculopathy, lumbar region (M54.16) Active confirmed Problem 79123658 Spinal stenosis, 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) Active confirmed Problem 418909945 Lumbar radiculopathy (M54.16) Active confirmed Problem 618055737 Lumbar spondylos is (M47.816) Active confirmed Problem 604527138 Lumbar radiculopathy, chronic (M54.16) Active confirmed Problem 514679348 Spondylolisthesi s, unspecified spinal region (M43.10) Active confirmed Problem 95456882 Hypertension, unspecified type (I10) Active confirmed Problem 003122418 Gastroesophageal reflux disease, unspecified whether esophagitis present (K21.9) Active confirmed Plan Of Treatment Future Test Test Name Order Date MRI-LUMBAR SPINE; W/O CONTRAST MATL (721 48) 08/18/2020 XRAY- SPINE LUMBAR AP AND LAT/SPOT (7210 0)([facility]) 11/12/2020 CT- LUMBAR SPINE W/O CONTRAST (58715)([facility]) 01/12/2021 XRAY- SPINE LUMBAR AP AND LAT/SPOT (7210 0)([facility]) 03/16/2021 CT- LUMBAR SPINE W/O CONTRAST (85855[facility] 07/13/2021 Insurance Providers Payer Name Payer Address Payer Phone Subscriber Number Group Number Insured Name Patient Relationship to Insured Coverage Start Date Coverage End Date [place]ARE [place] B [address] [facility] [place] [id number] Yahaira Herring Self - patient is the insured [facility] PPO [address] [place], [place] [id number] Yahaira Herring Self - patient is the insured Medical (General) History Medical History History ICD Code Lumbar radiculopathy Hypertension, unspecified type I10 Gastroesophageal reflux disease, unspeci fied whether esophagitis present K21.9 Spondylolisthesis, unspecified spinal re gion M43.10 Surgical History Surgery Date(Month/Year) hysterectomy gall bladder surgery appendectomy breast surgery Hospitalization History Reason Date(Month/Year) See Above
--- OUTSIDE RECORDS SUMMARY | 2025-01-02 16:05 | XMS_ITS | Clinical Summary ---
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
--- OUTSIDE RECORDS SUMMARY | 2025-01-02 16:06 | XMS_ITS | Patient Health Record ---
Author Organization [facility] Address [address] [place] [address] [address] [place] [address] Care Team Providers Care Water Use Inspector Name Role Phone Karyna Clarke Unavailable [phone] Reason For Referral No Information Medications Medication SIG (Take, Route, Frequency, Duration) Notes Start Date End Date Status hydroCHLOROthiazide 1 ORAL daily; Duration: -3 [facility] 09/24/2012 Active Citalopram Hydrobromide 20MG ORAL; Duration: -3 [facility] Active CeleBREX 200MG ORAL; Duration: -3 [facility] 10/15/2013 Active Vitamin E 200UNITS 1 ORAL daily; Duration: -3 [facility] 09/24/2012 Active Atenolol 25MG 1 ORAL DAILY; Duration: -3 [facility] 09/24/2012 Active Calcium 1 ORAL daily; Duration: -3 [facility] 09/24/2012 Active Vitamin D3 1000 IU ORAL daily; Duration : -3 [facility] 09/24/2012 Active Marion Jelly 1 ORAL daily; Duration: -3 [facility] 09/24/2012 Active Problems Problem Type SNOMED Code ICD Code Onset Dates Problem Status W/U Status Risk Notes Problem Menopausal symptom (74366943) Symptomatic menopausal or female climacteric states (627.2) Active confirmed Major Problem Gynecological examination normal (102748667704164) Routine gynecological examination (V72.31) Active confirmed Diag Problem Exercises teaching, guidance, and counseling (783551340) Exercise counseling (V65.41) Active confirmed Diag Problem Special screenin g for malignant neoplasms, colon (V76.51) Active confirmed Major Plan Of Treatment No Information Insurance Providers Payer Name Payer Address Payer Phone Subscriber Number Group Number Insured Name Patient Relationship to Insured Coverage Start Date Coverage End Date MEDICARE [address] [place], [place] [id number] NATALY JAIN Self - patient is the insured 1 [employer] [address] [place] [address] [phone] [id number] SUSYSILVESTRENATALY Self - patient is the insured 1
--- OUTSIDE RECORDS SUMMARY | 2025-01-31 20:00 | XMS_ITS | Clinical Summary ---
Author Organization Unknown Care Team Providers Care Finger Lift Operator Name Role Phone MCKENZIE MCCANN, RUTH Unavailable Unavailable ANNE RN, DASHAWN Unavailable Unavailable CHALO PT, MIGUEL Unavailable Unavailable Payers Payer Name Policy Type Policy Number Effective Date Expira tion Date MEDICARE - [facility] - PDGM [id number] Problems Condition Name Condition Details Condition Category Status Onset Date Resolution Date Last Treatment Date Treating Clinician Comments IRON DEFICIENCY ANEMIA, UNSPECIFIED Active 05-22 00:00: 00 HEMIPLGA FOLLOWING CEREBRAL INFRC AFF RIGHT DOMINANT SIDE Active 05-22 00:00: 00 TYPE 2 DIABETES MELLITUS WITHOUT COMPLICATION S Active 05-22 00:00: 00 UNSPECIFIED ATRIAL FIBRILLATION Active 05-22 00:00: 00 ANXIETY DISORDER, UNSPECIFIED Active 05-22 00:00: 00 DEPRESSION, UNSPECIFIED Active 05-22 00:00: 00 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 W/O BLEEDING Active 05-22 00:00: 00 GASTRO-ESOPH AGEAL REFLUX DISEASE WITHOUT ESOPHAGITIS Active 05-22 00:00: 00 Irritable bowel syndrome, unspecified Active 05-22 00:00: 00 HYPERLIPIDEM IA, UNSPECIFIED Active 05-22 00:00: 00 OBESITY, UNSPECIFIED Active 05-22 00:00: 00 BODY MASS INDEX [BMI]30.0-30 .9, ADULT Active 05-22 00:00: 00 OSTEITIS DEFORMANS OF UNSPECIFIED BONE Active 05-22 00:00: 00 OTH DISRD OF BONE DENSITY AND STRUCTURE, UNSPECIFIED SITE Active 05-22 00:00: 00 OTHER CHRONIC PAIN Active 05-22 00:00: 00 UNSPECIFIED OSTEOARTHRIT IS, UNSPECIFIED SITE Active 05-22 00:00: 00 FOOT DROP, RIGHT FOOT Active 05-22 00:00: 00 ESSENTIAL (PRIMARY) HYPERTENSION Active 05-22 00:00: 00 RADICULOPATH Y, LUMBAR REGION Active 05-22 00:00: 00 ACQUIRED ABSENCE OF OTHER SPECIFIED PARTS OF DIGESTIVE TRACT Active 05-22 00:00: 00 ACQUIRED ABSENCE OF OTHER ORGANS Active 05-22 00:00: 00 Personal history of adenomatous and serrated colon polyps Active 05-22 00:00: 00 ACQUIRED ABSENCE OF BOTH CERVIX AND UTERUS Active 05-22 00:00: 00 PERSONAL HISTORY OF NICOTINE DEPENDENCE Active 05-22 00:00: 00 CARE HOME (CURRENT) USE OF ANTICOAGULAN TS Active 05-22 00:00: 00 CARE HOME (CURRENT) USE OF ORAL HYPOGLYCEMIC DRUGS Active 05-22 00:00: 00 Allergies, Adverse Reactions, Alerts Allergy Name Allergy Type Status Severity Reaction(s) Onset Date Inactive Date Treating Clinician Comments OXYCODONE Propensity to adverse reactions Active 12-04 13:14: 22 Medications Ordered Medication Name Filled Medication Name Start Date Stop Date Current Medication? Ordering Clinician Indication Dosage Frequency Signature (SIG) Comments Components pantoprazol e 20 mg tablet,benita yed release 11-28 00:00: 00 12-04 00:00 :00 No [id number] Per instruc tions Per instructio ns (route: oral) Med Classific ation: Gastroint estinal Therapy Agents ferrous sulfate 220 mg (44 mg iron)/5 mL oral solution 11-27 00:00: 00 12-04 00:00 :00 No [id number] Per instruc tions ONCE DAILY Per instructio ns ONCE DAILY (route: oral) Med Classific ation: Electroly te Balance-N utritiona l Products rosuvastati n 5 mg tablet 11-20 00:00: 00 12-04 00:00 :00 No [id number] Per instruc tions ONCE DAILY Per instructio ns ONCE DAILY (route: oral) Med Classific ation: Cardiovas cular Therapy Agents metoprolol tartrate 50 mg tablet 11-12 00:00: 00 12-04 00:00 :00 No [id number] Per instruc tions TWICE DAILY Per instructio ns TWICE DAILY (route: oral) Med Classific ation: Cardiovas cular Therapy Agents Eliquis 5 mg tablet 10-31 00:00: 00 12-04 00:00 :00 No [id number] Per instruc tions TWICE DAILY Per instructio ns TWICE DAILY (route: oral) Med Classific ation: Hematolog ical Agents alpha lipoic acid 100 mg capsule 12-04 00:00: 00 Yes [id number] 1 capsule DAILY 1 capsule DAILY (route: oral) Med Classific ation: Alternati ve Therapy Biotin Plus 5,000 mcg-10 mg tablet 12-04 00:00: 00 Yes [id number] 1 tablet DAILY 1 tablet DAILY (route: oral) Med Classific ation: Alternati ve Therapy calcium 250 mg (as citrate) tablet 12-04 00:00: 00 Yes [id number] 1 tablet DAILY 1 tablet DAILY (route: oral) Med Classific ation: Electroly te Balance-N utritiona l Products cetirizine 10 mg tablet 12-04 00:00: 00 Yes [id number] 1 tablet DAILY 1 tablet DAILY (route: oral) Med Classific ation: Respirato ry Therapy Agents cholecalcif gary (vitamin D3) 50 mcg (2,000 unit) capsule 12-04 00:00: 00 Yes [id number] 1 capsule DAILY 1 capsule DAILY (route: oral) Med Classific ation: Electroly te Balance-N utritiona l Products citalopram 20 mg tablet 12-04 00:00: 00 Yes [id number] 1 tablet BEDTIME 1 tablet BEDTIME (route: oral) Med Classific ation: Central Nervous System Agents Citrucel 500 mg tablet 12-04 00:00: 00 Yes [id number] 1 tablet DAILY 1 tablet DAILY (route: oral) Med Classific ation: Gastroint estinal Therapy Agents echinacea 400 mg capsule 12-04 00:00: 00 Yes [id number] 1 capsule DAILY 1 capsule DAILY (route: oral) Med Classific ation: Alternati ve Therapy Eliquis 5 mg tablet 12-04 00:00: 00 Yes [id number] 1 tablet 2 TIMES DAILY 1 tablet 2 TIMES DAILY (route: oral) Med Classific ation: Hematolog ical Agents ferrous sulfate 220 mg (44 mg iron)/5 mL oral solution 11-19 00:00: 00 Yes [id number] 5 mL DAILY 5 mL PEDRO Y (route: oral) Med Classific ation: Electroly te Balance-N utritiona l Products Fish Oil 1,000 mg (120 mg-180 mg) capsule 12-04 00:00: 00 Yes [id number] 1 capsule DAILY 1 capsule DAILY (route: oral) Med Classific ation: Cardiovas cular Therapy Agents Jardiance 10 mg tablet 12-04 00:00: 00 Yes [id number] 1 tablet DAILY 1 tablet DAILY (route: oral) Med Classific ation: Endocrine metoprolol tartrate 50 mg tablet 12-04 00:00: 00 Yes [id number] 1.5 tablet 2 TIMES DAILY 1.5 tablet 2 TIMES DAILY (route: oral) Med Classific ation: Cardiovas cular Therapy Agents Multivitami n 50 Plus tablet 12-04 00:00: 00 Yes [id number] 1 tablet DAILY 1 tablet DAILY (route: oral) Med Classific ation: Electroly te Balance-N utritiona l Products pantoprazol e 20 mg tablet,benita yed release 12-04 00:00: 00 Yes [id number] 1 tablet DAILY 1 tablet DAILY (route: oral) Med Classific ation: Gastroint estinal Therapy Agents potassium citrate (replacemen t) 99 mg capsule 12-04 00:00: 00 Yes [id number] 1 capsule DAILY 1 capsule DAILY (route: oral) Med Classific ation: Electroly te Balance-N utritiona l Products rosuvastati n 5 mg tablet 12-04 00:00: 00 Yes [id number] 1 tablet DAILY 1 tablet DAILY (route: oral) Med Classific ation: Cardiovas cular Therapy Agents Vitamin C 500 mg tablet 11-19 00:00: 00 Yes [id number] 2 tablet DAILY 2 tablet DAILY (route: oral) Med Classific ation: Electroly te Balance-N utritiona l Products Immunizations Ordered Immunization Name Filled Immunization Name Date Status Comments Refusal Reason REFUSED COVID, COVID-19 2024-12-04 00:00:00 INFLUENZA, TIV (INACTIVATED) 2024-01-25 00:00:00 Vital Signs Vital Name Observation Time Observation Value Commen ts Temperature 2024-12-27 14:11:00.000 96.6 [degF] Temperature 2024-12-24 11:16:00.000 98 [degF] Temperature 2024-12-20 14:03:00.000 96.6 [degF] Temperature 2024-12-19 17:36:00.000 97 [degF] Temperature 2024-12-11 14:35:00.000 97.6 [degF] Temperature 2024-12-11 13:13:00.000 96.6 [degF] Temperature 2024-12-04 13:05:00.000 98.2 [degF] BMI (%) 2024-12-04 13:05:00.000 37 kg/m2 Height 2024-12-04 13:05:00.000 61 [in_us] Pulse 2024-12-27 14:11:00.000 80 /min Pulse 2024-12-24 11:16:00.000 78 /min Pulse 2024-12-20 14:03:00.000 76 /min Pulse 2024-12-19 17:36:00.000 70 /min Pulse 2024-12-11 14:35:00.000 68 /min Pulse 2024-12-11 13:13:00.000 80 /min Pulse 2024-12-04 13:05:00.000 64 /min O2 Saturation (%) 2024-12-27 14:11:00.000 97 % O2 Saturation (%) 2024-12-24 11:16:00.000 97 % O2 Saturation (%) 2024-12-20 14:03:00.000 97 % O2 Saturation (%) 2024-12-19 17:36:00.000 97 % O2 Saturation (%) 2024-12-11 14:35:00.000 99 % O2 Saturation (%) 2024-12-11 13:13:00.000 97 % O2 Saturation (%) 2024-12-04 13:05:00.000 98 % Respirations 2024-12-27 14:11:00.000 18 /min Respirations 2024-12-20 14:03:00.000 18 /min Respirations 2024-12-19 17:36:00.000 18 /min Respirations 2024-12-11 13:13:00.000 18 /min Respirations 2024-12-04 13:05:00.000 18 /min Weight (lbs) 2024-12-04 13:05:00.000 196 [lb_av] Systolic Blood Pressure 2024-12-27 14:11:00.000 122 mm [Hg] Systolic Blood Pressure 2024-12-24 11:16:00.000 132 mm [Hg] Systolic Blood Pressure 2024-12-20 14:03:00.000 128 mm [Hg] Systolic Blood Pressure 2024-12-19 17:36:00.000 142 mm [Hg] Systolic Blood Pressure 2024-12-11 14:35:00.000 130 mm [Hg] Systolic Blood Pressure 2024-12-11 13:13:00.000 130 mm [Hg] Systolic Blood Pressure 2024-12-04 13:05:00.000 140 mm [Hg] Diastolic Blood Pressure 2024-12-27 14:11:00.000 82 mm [Hg] Diastolic Blood Pressure 2024-12-24 11:16:00.000 70 mm [Hg] Diastolic Blood Pressure 2024-12-20 14:03:00.000 64 mm [Hg] Diastolic Blood Pressure 2024-12-19 17:36:00.000 76 mm [Hg] Diastolic Blood Pressure 2024-12-11 14:35:00.000 72 mm [Hg] Diastolic Blood Pressure 2024-12-11 13:13:00.000 64 mm [Hg] Diastolic Blood Pressure 2024-12-04 13:05:00.000 78 mm [Hg] Plan of Treatment Planned Activity Planned Date Details Comments Future Scheduled Test SKILLED NU RSE TO EVALUATE PATIENT, IDENTIFY PRIMARY AND CO-MORBID CONDITIONS CODED PER CODING GUIDELINES, AND DEVELOP PATIENT SPECIFIC PLAN OF CARE THAT INCLUDES PATIENT GOAL FOR HOME HEALTH. [code = SKILLED NURSE TO EVALUATE PATIENT, IDENTIFY PRIMARY AND CO-MORBID CONDITIONS CODED PER CODING GUIDELINES, AND DEVELOP PATIENT SPECIFIC PLAN OF CARE THAT INCLUDES PATIENT GOAL FOR HOME HEALTH.] Future Scheduled Test SKILLED NU RSE TO ASSESS ANXIETY AND PROVIDE ASSISTANCE TO PATIENT FOR UNDERSTANDING AND MANAGEMENT OF FEELINGS. [code = SKILLED NURSE TO ASSESS ANXIETY AND PROVIDE ASSISTANCE TO PATIENT FOR UNDERSTANDING AND MANAGEMENT OF FEELINGS.] Future Scheduled Test SKILLED NU RSE FOR O/A, TEACHING, AND MANAGEMENT OF HX CVA [code = SKILLED NURSE FOR O/A, TEACHING, AND MANAGEMENT OF HX CVA] Future Scheduled Test SKILLED NU RSE FOR O/A, TEACHING RELATED TO GI BLEED FOR EARLY IDENTIFICATION OF EXACERBATION OF DISEASE PROCESS. [code = SKILLED NURSE FOR O/A, TEACHING RELATED TO GI BLEED FOR EARLY IDENTIFICATION OF EXACERBATION OF DISEASE PROCESS.] Future Scheduled Test SKILLED NU RSE TO OBTAIN BLOOD SUGAR PRN FOR SIGNS AND SYMPTOMS OF HYPO/HYPERGLYCEMIA. IF OBTAINED BY PATIENT/CAREGIVER PRIOR TO VISIT AND PATIENT IS NOT SYMPTOMATIC, SKILLED NURSE TO RECORD READING FROM PATIENT LOG. [code = SKILLED NURSE TO OBTAIN BLOOD SUGAR PRN FOR SIGNS AND SYMPTOMS OF HYPO/HYPERGLYCEMIA. IF OBTAINED BY PATIENT/CAREGIVER PRIOR TO VISIT AND PATIENT IS NOT SYMPTOMATIC, SKILLED NURSE TO RECORD READING FROM PATIENT LOG.] Future Scheduled Test SKILLED NU RSE FOR O/A OF MUSCULOSKELETAL STATUS AND TEACHING ON MEASURES TO MANAGE PAIN TO R GROIN AND TO MAINTAIN SAFETY WITH ACTIVITY [code = SKILLED NURSE FOR O/A OF MUSCULOSKELETAL STATUS AND TEACHING ON MEASURES TO MANAGE PAIN TO R GROIN AND TO MAINTAIN SAFETY WITH ACTIVITY] Future Scheduled Test PHYSICAL T HERAPIST TO EVALUATE PATIENT FOR ENDURANCE [code = PHYSICAL THERAPIST TO EVALUATE PATIENT FOR ENDURANCE] Future Scheduled Test SKILLED NU RSE TO INSTRUCT PATIENT/CAREGIVER ON SIGNS AND SYMPTOMS, RISK FACTORS, COMPLICATIONS, AND MANAGEMENT OF ATRIAL FIBRILLATION. [code = SKILLED NURSE TO INSTRUCT PATIENT/CAREGIVER ON SIGNS AND SYMPTOMS, RISK FACTORS, COMPLICATIONS, AND MANAGEMENT OF ATRIAL FIBRILLATION.] Future Scheduled Test SKILLED NU RSE TO PROVIDE TEACHING ON SIGNS AND SYMPTOMS AND MANAGEMENT OF HYPERTENSION. [code = SKILLED NURSE TO PROVIDE TEACHING ON SIGNS AND SYMPTOMS AND MANAGEMENT OF HYPERTENSION.] Future Scheduled Test SKILLED NU RSE TO INSTRUCT PATIENT/CAREGIVER ON WARNING SIGNS OF CVA, RISK FACTORS, AND METHODS TO MANAGE CARE HOME EFFECTS OF CVA. [code = SKILLED NURSE TO INSTRUCT PATIENT/CAREGIVER ON WARNING SIGNS OF CVA, RISK FACTORS, AND METHODS TO MANAGE CARE HOME EFFECTS OF CVA.] Future Scheduled Test SKILLED NU RSE FOR O/A AND SKILLED TEACHING RELATED TO SIGNS AND SYMPTOMS AND MANAGEMENT OF IRON DEFICIENCY ANEMIA. [code = SKILLED NURSE FOR O/A AND SKILLED TEACHING RELATED TO SIGNS AND SYMPTOMS AND MANAGEMENT OF IRON DEFICIENCY ANEMIA.] Future Scheduled Test SKILLED NU RSE FOR O/A AND TEACHING OF DIABETIC MANAGEMENT INCLUDING BLOOD SUGAR MONITORING/USE OF GLUCOMETER, DIABETIC DIET, LOWER EXTREMITY SKIN INSPECTION, PROPER SKIN/FOOT CARE, AND SIGNS AND SYMPTOMS HYPO/HYPERGLYCEMIA TO REPORT. [code = SKILLED NURSE FOR O/A AND TEACHING OF DIABETIC MANAGEMENT INCLUDING BLOOD SUGAR MONITORING/USE OF GLUCOMETER, DIABETIC DIET, LOWER EXTREMITY SKIN INSPECTION, PROPER SKIN/FOOT CARE, AND SIGNS AND SYMPTOMS HYPO/HYPERGLYCEMIA TO REPORT.] Future Scheduled Test SKILLED NU RSE FOR O/A AND SKILLED TEACHING RELATED TO SIGNS AND SYMPTOMS AND MANAGEMENT OF OSTEITIS, OS, RADICULOPATHY. [code = SKILLED NURSE FOR O/A AND SKILLED TEACHING RELATED TO SIGNS AND SYMPTOMS AND MANAGEMENT OF OSTEITIS, OS, RADICULOPATHY.] Future Scheduled Test PATIENT YOUNGBLOOD S A RISK OF HOSPITALIZATION AND ED USE. SKILLED NURSE TO ESTABLISH SUPPORT MEASURES TO MINIMIZE RISK OF HOSPITALIZATION AND ED USE, AND INSTRUCT PATIENT/CAREGIVER ON METHODS TO REDUCE AVOIDABLE HOSPITALIZATION AND ED USE. [code = PATIENT HAS A RISK OF HOSPITALIZATION AND ED USE. SKILLED NURSE TO ESTABLISH SUPPORT MEASURES TO MINIMIZE RISK OF HOSPITALIZATION AND ED USE, AND INSTRUCT PATIENT/CAREGIVER ON METHODS TO REDUCE AVOIDABLE HOSPITALIZATION AND ED USE.] Future Scheduled Test SKILLED NU RSE TO PROVIDE INSTRUCTION TO PATIENT/CAREGIVER RELATED TO DISCHARGE PLANNING. [code = SKILLED NURSE TO PROVIDE INSTRUCTION TO PATIENT/CAREGIVER RELATED TO DISCHARGE PLANNING.] Future Scheduled Test SKILLED NU RSE TO PERFORM ENVIRONMENTAL SAFETY RISK ASSESSMENT AND FALL RISK ASSESSMENT AND PROVIDE INSTRUCTION TO IMPLEMENT ENVIRONMENTAL SAFETY AND FALL PREVENTION STRATEGIES THROUGHOUT THE CERTIFICATION PERIOD. SKILLED NURSE WILL MAINTAIN SITUATIONAL AWARENESS AND WILL NOTIFY CLINICAL DRUM BUILDER AND PHYSICIAN/PROVIDER WITH ANY CHANGE IN CONDITION. [code = SKILLED NURSE TO PERFORM ENVIRONMENTAL SAFETY RISK ASSESSMENT AND FALL RISK ASSESSMENT AND PROVIDE INSTRUCTION TO IMPLEMENT ENVIRONMENTAL SAFETY AND FALL PREVENTION STRATEGIES THROUGHOUT THE CERTIFICATION PERIOD. SKILLED NURSE WILL MAINTAIN SITUATIONAL AWARENESS AND WILL NOTIFY CLINICAL DRUM BUILDER AND PHYSICIAN/PROVIDER WITH ANY CHANGE IN CONDITION.] Future Scheduled Test SKILLED NU RSE FOR OBSERVATION AND ASSESSMENT OF PATIENTS PAIN LEVEL AND EFFECTIVENESS OF PAIN MANAGEMENT REGIMEN. SKILLED NURSE TO INSTRUCT PATIENT/CAREGIVER REGARDING PHARMACOLOGIC AND NON-PHARMACOLOGIC PAIN CONTROL MEASURES. SKILLED NURSE TO REPORT TO PHYSICIAN IF PAIN LEVEL IS OUTSIDE OF ESTABLISHED PARAMETERS. [code = SKILLED NURSE FOR OBSERVATION AND ASSESSMENT OF PATIENTS PAIN LEVEL AND EFFECTIVENESS OF PAIN MANAGEMENT REGIMEN. SKILLED NURSE TO INSTRUCT PATIENT/CAREGIVER REGARDING PHARMACOLOGIC AND NON-PHARMACOLOGIC PAIN CONTROL MEASURES. SKILLED NURSE TO REPORT TO PHYSICIAN IF PAIN LEVEL IS OUTSIDE OF ESTABLISHED PARAMETERS.] Future Scheduled Test SKILLED NU RSE TO ASSESS PATIENT'S SKIN INTEGRITY AND INSTRUCT PATIENT/CAREGIVER ON MEASURES TO PREVENT PRESSURE ULCERS. [code = SKILLED NURSE TO ASSESS PATIENT'S SKIN INTEGRITY AND INSTRUCT PATIENT/CAREGIVER ON MEASURES TO PREVENT PRESSURE ULCERS.] Future Scheduled Test SKILLED NU RSE TO PROVIDE ASSESSMENT AND TEACHING/REINFORCEMENT OF MANAGEMENT OF DEPRESSION INCLUDING DISEASE PROCESS, MEDICATION MANAGEMENT, COPING SKILLS AND IDENTIFY CHANGES ASSOCIATED WITH DEPRESSIVE DISORDERS FOR EARLY INTERVENTION. [code = SKILLED NURSE TO PROVIDE ASSESSMENT AND TEACHING/REINFORCEMENT OF MANAGEMENT OF DEPRESSION INCLUDING DISEASE PROCESS, MEDICATION MANAGEMENT, COPING SKILLS AND IDENTIFY CHANGES ASSOCIATED WITH DEPRESSIVE DISORDERS FOR EARLY INTERVENTION.] Future Scheduled Test SKILLED NU RSE TO REVIEW PATIENT MEDICATIONS (PRESCRIPTION/OTC). INSTRUCT PATIENT/CAREGIVER ON ALL MEDICATIONS INCLUDING PURPOSE, WHEN TO TAKE, IMPORTANCE OF MEDICATION ADHERENCE, MONITORING OF EFFECTIVENESS, ADVERSE DRUG REACTIONS, POSSIBLE SIDE EFFECTS, AND WHEN TO NOTIFY AGENCY OR PHYSICIAN/PROVIDER OF ANY CONCERNS. [code = SKILLED NURSE TO REVIEW PATIENT MEDICATIONS (PRESCRIPTION/OTC). INSTRUCT PATIENT/CAREGIVER ON ALL MEDICATIONS INCLUDING PURPOSE, WHEN TO TAKE, IMPORTANCE OF MEDICATION ADHERENCE, MONITORING OF EFFECTIVENESS, ADVERSE DRUG REACTIONS, POSSIBLE SIDE EFFECTS, AND WHEN TO NOTIFY AGENCY OR PHYSICIAN/PROVIDER OF ANY CONCERNS.] Future Scheduled Test PHYSICAL T HERAPIST TO EVALUATE PATIENT SECONDARY TO FUNCTIONAL DEFICITS/SAFETY CONCERNS. PHYSICAL THERAPIST TO ASSESS BEST PRACTICE INTERVENTIONS TO ASSIST PATIENTS TO IMPROVE OR STABILIZE MEDICAL STATUS AND PREVENT RE-HOSPITALIZATION. MEASURES INCLUDING REVIEW AND IDENTIFICATION OF CONCERNS FOR THE FOLLOWING AREAS: DEPRESSION, DRUG REGIMEN, DIABETIC FOOT CARE, ENVIRONMENTAL SAFETY ISSUES AND FALLS, PRESSURE ULCERS, PAIN, AND DISEASE MANAGEMENT. PHYSICAL THERAPY TO ESTABLISH /UPGRADE/DOWNGRADE THERAPEUTIC EXERCISE PROGRAM AND INSTRUCT PATIENT/CAREGIVER ON EXERCISE PRECAUTIONS WITH WRITTEN HOME PROGRAM. MAY INCLUDE PROM, AAROM, AROM, RROM APPROPRIATE TO IMPROVE FUNCTIONAL STRENGTH AND RANGE OF MOTION. PHYSICAL THERAPY TO INSTRUCT PATIENT/CAREGIVER ON GAIT TRAINING TECHNIQUES USING APPROPRIATE ASSISTIVE DEVICE, PROPER BODY MECHANICS TO IMPROVE MOBILITY, AND PREVENT INJURY OF PATIENT AND/OR CAREGIVER. PHYSICAL THERAPY TO ASSESS AND RECOMMEND HOME SAFETY ADAPTATIONS AND EDUCATE PATIENT /CAREGIVER ON FALL PREVENTION STRATEGIES. PHYSICAL THERAPY FOR OBSERVATION AND ASSESSMENT OF PAIN, EFFECTIVENESS OF PAIN MANAGEMENT REGIMEN AND SKILLED TEACHING RELATED TO PAIN MANAGEMENT. THERAPIST TO REPORT INCREASED PAIN LEVEL TO PHYSICIAN FOR PROMPT INTERVENTION. PHYSICAL THERAPY TO INSTRUCT PATIENT/CAREGIVER ON BALANCE AND BALANCE STRATEGIES TO IMPROVE SAFE MOBILITY AND REDUCE RISK FOR FALL AND INJURY SUMMARY OF THERAPY EVAL/ASSESSMENT FINDINGS AND REASON(S) SKILLS OF A THERAPIST ARE INDICATED: PHYSICAL THERAPY EVALUATION (12/11/24) PATIENT IS A [place] 79 YO FEMALE WITH PHYSICAL THERAPY [place] [facility] [place] [facility] [place], MD DX: GI BLEED. PATIENT REPORTS RETURN OF R HIP PAIN DURING HOSPITALIZATION. 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 FALL HISTORY: PATIENT REPORTS NO RECENT FALLS. PLOF: DROVE, AMB WITH FWW AND CANE PATIENT LIVES ALONE IN A MOBILE HOME, 4 STAIRS WITH RAIL TO NEGOTIATE. 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 PATIENT REPORTS HAS WEEKLY MASSAGE TO ADDRESS R HIP/THIGH PAIN. PATIENT REPORTS CHRONIC NUMBNESS L LATERAL HIP. PATIENT REPORTS 0/10 PAIN AT REST, UP TO 5/10 R THIGH/GROIN PAIN WITH HIP FLEX. PATIENT HAS 1+ BILAT LE EDEMA, EDUC ON EDEMA CONTROL. BILAT LE ROM WFL EXCEPT R FOOT DROP (0 DEGREES OF DORSIFLEX). BILAT LE STRENGTH: HIPS L:4+/5, R: 3-/5, KNEES BILAT 4+/5, ANKLES L: 4/5, R:1/5. TO INCREASE BILAT LE STRENGTH, PATIENT COMPLETED R SUPINE THER EXER WITH VERBAL CUES FOR FORM X 10: R HEELSLIDE, BILAT HIP ABD/ADD, BILAT GLUT MAX SQUEEZE. DISPENSED HEP SHEET. PATIENT REPORTS HAS ORTHOTICS AND PROSTHETICS SOLUTION APPOINTMENT IN FOR R AFO ACQUISITION. PATIENT INDEP WITH BED MOBILITY INCLUDING ENTERING BED WITH STEP RISER. PATIENT COMPLETED SIT-->STAND WITH FWW MOD I FROM EDGE OF BED, KITCHEN CHAIR AND TOILET. ADJUSTED FWW TO MAX PATIENT COMFORT AND SAFETY WITH AMB. PATIENT AMB 25' X 2 WITH FWW AND SUPERVISION, VERBAL CUES FOR ERECT SPINE. PATIENT DEMO FORWARD FLEXED POSTURE, BILAT LE STEP LENGTHS WITH LEFT STEP MORE DIMINSHED THAN RIGHT, INCREASED R HIP FLEX WITH SWING PHASE OF CLEAR RIGHT FOOT WITH ADEQUATE CLEARANCE. TINETTI = , FALL RISK. PATIENT PRESENTS WITH THE FOLLOWING DEFICITS: R HIP THIGH/PAIN, DECREASED R LE ROM AND STRENGTH, RESULTING IN DIFFICULTY WITH AMB AND STAIR NEGOTIATION. SKILLED [facility] FREQ 1X4WKS TO ADDRESS DEFICITS, MAX SAFETY AND FUNCTIONAL LEVEL IN HOME ENVIRONMENT WITH THER EXER, ESTABLISH HEP, GAIT TRAINING, STAIR NEGOTIATION, BALANCE ACTIVITIES. PATIENT INFORMED ABOUT PHYSICAL THERAPY POC INCLUDING FREQ, VERBALIZED ACCEPTANCE. MD NOTIFIED ABOUT PATIENT STATUS AND POC. PATIENT TO PARTICIPATE IN [facility] BALANCE SPECIALTY PROGRAM. [code = PHYSICAL THERAPIST TO EVALUATE PATIENT SECONDARY TO FUNCTIONAL DEFICITS/SAFETY CONCERNS. PHYSICAL THERAPIST TO ASSESS BEST PRACTICE INTERVENTIONS TO ASSIST PATIENTS TO IMPROVE OR STABILIZE MEDICAL STATUS AND PREVENT RE-HOSPITALIZATION. MEASURES INCLUDING REVIEW AND IDENTIFICATION OF CONCERNS FOR THE FOLLOWING AREAS: DEPRESSION, DRUG REGIMEN, DIABETIC FOOT CARE, ENVIRONMENTAL SAFETY ISSUES AND FALLS, PRESSURE ULCERS, PAIN, AND DISEASE MANAGEMENT. PHYSICAL THERAPY TO ESTABLISH /UPGRADE/DOWNGRADE THERAPEUTIC EXERCISE PROGRAM AND INSTRUCT PATIENT/CAREGIVER ON EXERCISE PRECAUTIONS WITH WRITTEN HOME PROGRAM. MAY INCLUDE PROM, AAROM, AROM, RROM APPROPRIATE TO IMPROVE FUNCTIONAL STRENGTH AND RANGE OF MOTION. PHYSICAL THERAPY TO INSTRUCT PATIENT/CAREGIVER ON GAIT TRAINING TECHNIQUES USING APPROPRIATE ASSISTIVE DEVICE, PROPER BODY MECHANICS TO IMPROVE MOBILITY, AND PREVENT INJURY OF PATIENT AND/OR CAREGIVER. PHYSICAL THERAPY TO ASSESS AND RECOMMEND HOME SAFETY ADAPTATIONS AND EDUCATE PATIENT /CAREGIVER ON FALL PREVENTION STRATEGIES. PHYSICAL THERAPY FOR OBSERVATION AND ASSESSMENT OF PAIN, EFFECTIVENESS OF PAIN MANAGEMENT REGIMEN AND SKILLED TEACHING RELATED TO PAIN MANAGEMENT. THERAPIST TO REPORT INCREASED PAIN LEVEL TO PHYSICIAN FOR PROMPT INTERVENTION. PHYSICAL THERAPY TO INSTRUCT PATIENT/CAREGIVER ON BALANCE AND BALANCE STRATEGIES TO IMPROVE SAFE MOBILITY AND REDUCE RISK FOR FALL AND INJURY SUMMARY OF THERAPY EVAL/ASSESSMENT FINDINGS AND REASON(S) SKILLS OF A THERAPIST ARE INDICATED: PHYSICAL THERAPY EVALUATION (12/11/24) PATIENT IS A [place] 79 YO FEMALE WITH PHYSICAL THERAPY [place]ERR[place] [facility] [place] [facility] [place], MD DX: GI BLEED. PATIENT REPORTS RETURN OF R HIP PAIN DURING HOSPITALIZATION. 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 FALL HISTORY: PATIENT REPORTS NO RECENT FALLS. PLOF: DROVE, AMB WITH FWW AND CANE PATIENT LIVES ALONE IN A MOBILE HOME, 4 STAIRS WITH RAIL TO NEGOTIATE. 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 PATIENT REPORTS HAS WEEKLY MASSAGE TO ADDRESS R HIP/THIGH PAIN. PATIENT REPORTS CHRONIC NUMBNESS L LATERAL HIP. PATIENT REPORTS 0/10 PAIN AT REST, UP TO 5/10 R THIGH/GROIN PAIN WITH HIP FLEX. PATIENT HAS 1+ BILAT LE EDEMA, EDUC ON EDEMA CONTROL. BILAT LE ROM WFL EXCEPT R FOOT DROP (0 DEGREES OF DORSIFLEX). BILAT LE STRENGTH: HIPS L:4+/5, R: 3-/5, KNEES BILAT 4+/5, ANKLES L: 4/5, R:1/5. TO INCREASE BILAT LE STRENGTH, PATIENT COMPLETED R SUPINE THER EXER WITH VERBAL CUES FOR FORM X 10: R HEELSLIDE, BILAT HIP ABD/ADD, BILAT GLUT MAX SQUEEZE. DISPENSED HEP SHEET. PATIENT REPORTS HAS ORTHOTICS AND PROSTHETICS SOLUTION APPOINTMENT IN FOR R AFO ACQUISITION. PATIENT INDEP WITH BED MOBILITY INCLUDING ENTERING BED WITH STEP RISER. PATIENT COMPLETED SIT-->STAND WITH FWW MOD I FROM EDGE OF BED, KITCHEN CHAIR AND TOILET. ADJUSTED FWW TO MAX PATIENT COMFORT AND SAFETY WITH AMB. PATIENT AMB 25' X 2 WITH FWW AND SUPERVISION, VERBAL CUES FOR ERECT SPINE. PATIENT DEMO FORWARD FLEXED POSTURE, BILAT LE STEP LENGTHS WITH LEFT STEP MORE DIMINSHED THAN RIGHT, INCREASED R HIP FLEX WITH SWING PHASE OF CLEAR RIGHT FOOT WITH ADEQUATE CLEARANCE. TINETTI = 17/28, FALL RISK. PATIENT PRESENTS WITH THE FOLLOWING DEFICITS: R HIP THIGH/PAIN, DECREASED R LE ROM AND STRENGTH, RESULTING IN DIFFICULTY WITH AMB AND STAIR NEGOTIATION. SKILLED [facility] FREQ 1X4WKS TO ADDRESS DEFICITS, MAX SAFETY AND FUNCTIONAL LEVEL IN HOME ENVIRONMENT WITH THER EXER, ESTABLISH HEP, GAIT TRAINING, STAIR NEGOTIATION, BALANCE ACTIVITIES. PATIENT INFORMED ABOUT PHYSICAL THERAPY POC INCLUDING FREQ, VERBALIZED ACCEPTANCE. MD NOTIFIED ABOUT PATIENT STATUS AND POC. PATIENT TO PARTICIPATE IN [facility] BALANCE SPECIALTY PROGRAM.] Goal Patient Goal - T O BE ABLE TO WALK SOMEWHAT NORMAL Goal Provider Goal - A PLAN OF CARE WILL BE ESTABLISHED THAT MEETS PATIENT'S SHELTER NEEDS AND INCLUDES PATIENT GOAL FOR HOME HEALTH. Goal Provider Goal - SYMPTOMS OF ANXIETY ARE IDENTIFIED AND INTERVENTIONS INITIATED TO ENABLE PATIENT TO UNDERSTAND AND MANAGE FEELINGS THROUGHOUT EPISODE. Goal Provider Goal - PATIENT/CAREGIVER WILL VERBALIZE/DEMONSTRATE MANAGEMENT OF CVA CARDIAC DISEASE PROCESS AND EXACERBATIONS WILL BE IDENTIFIED AND PROMPTLY REPORTED THROUGHOUT THE CERTIFICATION PERIOD. Goal Provider Goal - EXACERBATIONS OF GI BLEED GASTROINTESTINAL DISEASE WILL BE PROMPTLY IDENTIFIED AND INTERVENTIONS IMPLEMENTED TO MINIMIZE RISKS TO PATIENT BY END OF EPISODE. Goal Provider Goal - BLOOD SUGAR READING WILL BE OBTAINED ORDERED THROUGHOUT CERTIFICATION PERIOD. Goal Provider Goal - PATIENT/CAREGIVER WILL VERBALIZE/DEMONSTRATE ABILITY TO MANAGE PAIN TO R GROIN MUSCULOSKELETAL DISEASE WHILE MAINTAINING SAFETY THROUGHOUT THE EPISODE. Goal Provider Goal - A PHYSICAL THERAPY EVALUATION TO BE COMPLETED WITH RECOMMENDATIONS AND/OR WRITTEN PLAN OF TREATMENT ESTABLISHED FOR PHYSICIANS SIGNATURE. Goal Provider Goal - PATIENT/CAREGIVER WILL VERBALIZE UNDERSTANDING OF SIGNS AND SYMPTOMS, COMPLICATIONS, AND MANAGEMENT OF ATRIAL FIBRILLATION THROUGHOUT THE CERTIFICATION PERIOD. Goal Provider Goal - PATIENT/CAREGIVER WILL VERBALIZE SIGNS AND SYMPTOMS OF HYPERTENSION AND WILL BE ABLE TO DEMONSTRATE ABILITY TO MANAGE EXACERBATION BY END OF THE EPISODE. Goal Provider Goal - PATIENT/CAREGIVER WILL DEMONSTRATE COMPLIANCE WITH TREATMENT REGIME AND VERBALIZE SIGNS AND SYMPTOMS TO REPORT WELL POSSIBLE COMPLICATIONS OF CVA BY END OF EPISODE. Goal Provider Goal - PATIENT/CARGIVER WILL VERBALIZE UNDERSTANDING OF IRON DEFICIENCY ANEMIA INCLUDING SIGNS AND SYMPTOMS, MANAGEMENT OF COMPLICATIONS, AND PRESCRIBED TREATMENT REGIMEN BY END OF EPISODE. Goal Provider Goal - PATIENT/CAREGIVER WILL VERBALIZE/DEMONSTRATE KNOWLEDGE OF DIABETIC MANAGEMENT. CHANGES IN DIABETIC STATUS WILL BE IDENTIFIED AND REPORTED TO PHYSICIAN FOR PROMPT INTERVENTION THROUGHOUT THE CERTIFICATION PERIOD. Goal Provider Goal - PATIENT/CAREGIVER WILL VERBALIZE UNDERSTANDING OF MUSCULOSKELETAL DISEASE INCLUDING SIGNS AND SYMPTOMS, MANAGEMENT, AND PRESCRIBED TREATMENT REGIMEN BY END OF EPISODE. Goal Provider Goal - PATIENT WILL HAVE SUPPORT MEASURES ESTABLISHED TO PREVENT HOSPITALIZATION AND ED USE AND PATIENT/CAREGIVER WILL VERBALIZE/DEMONSTRATE METHODS TO REDUCE AVOIDABLE HOSPITALIZATION AND ED USE BY END OF EPISODE. Goal Provider Goal - PATIENT/CAREGIVER WILL VERBALIZE UNDERSTANDING OF DISCHARGE PLANNING INSTRUCTIONS BY DATE OF DISCHARGE. Goal Provider Goal - PATIENT/CAREGIVER WILL VERBALIZE/DEMONSTRATE EFFECTIVE ENVIRONMENTAL SAFETY AND FALL PREVENTION STRATEGIES, WILL REMAIN SAFE IN THE COMMUNITY, AND WILL BE FREE OF DANGER TO SELF AND OTHERS THROUGHOUT THE CERTIFICATION PERIOD. Goal Provider Goal - PATIENT/CAREGIVER WILL DEMONSTRATE UNDERSTANDING OF PHARMACOLOGIC AND NONPHARMACOLOGIC PAIN CONTROL MEASURES AND PATIENT WILL HAVE IMPROVEMENT IN PAIN INTERFERING WITH ACTIVITY EVIDENCED BY PAIN AT A LEVEL THAT IS ACCEPTABLE TO THE PATIENT AND PAIN LEVEL WITHIN ESTABLISHED PARAMETERS BY END OF CERTIFICATION PERIOD. Goal Provider Goal - PATIENT/CAREGIVER WILL VERBALIZE UNDERSTANDING OF PRESSURE ULCER PREVENTION BY END OF THE EPISODE. Goal Provider Goal - PATIENT/CAREGIVER WILL VERBALIZE/DEMONSTRATE UNDERSTANDING OF THE MANAGEMENT OF DEPRESSION THROUGHOUT THE CERTIFICATION PERIOD AND SYMPTOMS ARE IDENTIFIED AND MANAGED TO MAINTAIN PATIENT SAFETY IN THE HOME. Goal Provider Goal - PATIENT/CAREGIVER WILL VERBALIZE UNDERSTANDING OF EDUCATION PROVIDED ON MEDICATIONS BY THE END OF THE CERTIFICATION PERIOD. Goal Provider Goal - PHYSICAL THERAPY EVALUATION TO BE COMPLETED WITH RECOMMENDATIONS AND/OR WRITTEN TREATMENT PLAN OF CARE ESTABLISHED FOR THE PHYSICIANS SIGNATURE PATIENT/CAREGIVER VERBALIZES UNDERSTANDING OF THE INITIAL BEST PRACTICE RECOMMENDATIONS. PHYSICIAN TO BE NOTIFIED APPROPRIATE FOR ANY CHANGES OR COMPLICATIONS THROUGHOUT THE CERTIFICATION PERIOD. PATIENT/CAREGIVER WILL PERFORM THERAPEUTIC EXERCISE/S AND DEMONSTRATE PARTICIPATION IN A HOME PROGRAM. PATIENT/CAREGIVER WILL DEMONSTRATE IMPROVED GAIT TECHNIQUES TO MINIMIZE RISK OF INJURY. PATIENT/CAREGIVER WILL DEMONSTRATE/VERBALIZE UNDERSTANDING OF RECOMMENDATIONS TO INCREASE SAFETY IN THE HOME AND FALL PREVENTION. INCREASED PAIN OR INEFFECTIVE PAIN CONTROL MEASURES WILL BE IDENTIFIED AND PROMPTLY REPORTED TO THE PHYSICIAN. PATIENT/CAREGIVER WILL DEMONSTRATE EFFECTIVE PAIN MANAGEMENT. PATIENT/CAREGIVER WILL DEMONSTRATE IMPROVED BALANCE AND REDUCE THE RISK OF FALLS AND INJURY. PATIENT/CAREGIVER WILL VERBALIZE/DEMONSTRATE UTILIZATION OF TOOLS ASSOCIATED WITH THE [facility] BETTER BALANCE SPECIALTY PROGRAM. Encounters Start Date/Time End Date/Time Encounter Type Admission Type Attending [facility] Care Facility Care Department Encounter ID Discharge Date Discharge Status Discharge Condition Discharge Reason Percent Goals Met 2024-12-04 00:00:00 2025-02-01 00:00:00 Outpatient NEW ADMISSION DASHAWN RODRÍGUEZ [facility] [id number] 27.27
== END ==
LOC: HO.SL 15:56
PROVIDERS: PCP Internal Medicine; Visit Provider Nurse Practitioner Family
DX: G47.33 Obstructive sleep apnea (adult) (pediatric) (principal); G47.10 Hypersomnia, unspecified; R06.83 Snoring
CPT/HCPCS: 95806

== ENCOUNTER → 2025-01-02 16:08 | Outpatient (BNV) | payer MEDICARE, SELFPAY | PROVIDERS: PCP Internal Medicine; Visit Provider Internal Medicine | DX: G47.33 Obstructive sleep apnea (adult) (pediatric) (principal) | CPT/HCPCS: 95806 ==

== ENCOUNTER 2025-01-21 14:29 | Outpatient (REF) | payer MEDICARE, SELFPAY ==
--- NOTE | ~2025-01-21 | US_ITS ---
EXAMINATION: US EXTRACRANIAL CAROTID DUPLEX, BILATERAL CLINICAL INFORMATION: Stenosis, bilaterally. COMPARISON: Correlated to CT angiogram head neck dated October 02, 2024. TECHNIQUE: Real-time ultrasound and Doppler techniques (integrating B-mode 2-D vascular images, Doppler spectral analysis and color-flow Doppler imaging) were utilized to interrogate the extracranial carotid arteries, the vertebral arteries and proximal subclavian arteries bilaterally. The degree of stenosis is determined by criteria similar to NASCET. FINDINGS: Right Side: 1. There is small mixed atherosclerotic plaque seen in the bifurcation/proximal ICA region. 2. The common carotid artery PSV proximally is 80 cm/s and distally 71 cm/s. 3. The proximal internal carotid artery velocities are 71 cm/s systolic and 14 cm/s diastolic. 4. The proximal external carotid artery PSV is 101 cm/s. 5. The vertebral artery shows antegrade flow. 6. The subclavian artery waveforms are triphasic. ICA/CC ratio: 0.88. Left Side: 1. There is moderate sized calcified atherosclerotic plaque seen in the bifurcation/proximal ICA region. 2. The common carotid artery PSV proximally is 103 cm/s and distally 62 cm/s. 3. The proximal internal carotid artery velocities are 133 cm/s systolic and 11 cm/s diastolic. 4. The proximal external carotid artery PSV is 144 cm/s. 5. The vertebral artery shows antegrade flow. 6. The subclavian artery waveforms are triphasic. ICA/CC ratio: 1.29. US/US carotid duplex BI IMPRESSION: 1. RIGHT: 0-49% stenosis by ultrasound criteria. 2. LEFT: 50-79% stenosis by ultrasound criteria. Electronically signed by: Checo Do MD 01/21/2025 03:59 PM EDT
--- OUTSIDE RECORDS SUMMARY | 2025-01-21 15:41 | XMS_ITS | Clinical Summary ---
Author Organization [employer] Address [address] 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 [address] [facility] [place] [address]
== END 2025-01-21 14:30 | disposition home or self-care (01) ==
LOC: HO.HMGCX 14:29
PROVIDERS: PCP Internal Medicine; Visit Provider Surgery Vascular Surgery
DX: I65.23 Occlusion and stenosis of bilateral carotid arteries (principal)
CPT/HCPCS: 93880

== ENCOUNTER → 2025-01-21 14:30 | Outpatient (BNV) | payer MEDICARE, SELFPAY | PROVIDERS: PCP Internal Medicine; Visit Provider Radiology Diagnostic Radiology | DX: I65.23 Occlusion and stenosis of bilateral carotid arteries (principal) | CPT/HCPCS: 93880 ==

== ENCOUNTER 2025-02-12 13:21 | Outpatient (AMB) | payer MEDICARE, SELFPAY ==
--- OUTSIDE RECORDS SUMMARY | 2024-07-24 10:00 | XMS_ITS ---
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 Name Role Phone Lisa Card Primary Care Provider Unavailab Sal Omalley Unavailable [phone] Anne Lin Unavailable [phone] Allergies Allergen (clinical drug ingredient) Drug/Non Drug [...] Negative Encounters Encounter Location Date Provider Diagnosis [facility] [place] [address] [place] [address] 07/24/2024 Anne Lin Plan Of Treatment Next Appt Details Provider Name:Sal Mace , 05/06/2025 02:30:00 PM, [address] [place], [address], Progress Notes * Yahaira JAINDOB: [birth year] (79 yo F)Acc No.[id number]:07/24/2024 Progress Notes Patient: Yahaira GOLDBERG Provider: Heber Lin DPM :1945 A ge:78 Y S ex:Female Date:07/24/2024 Address:[address] [place] [address], [place], [place] Pcp:Lisa Card Subjective: * Chief Complaints: [...] enies. C ardiovascular: Pacemaker d enies. 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 W PW d enies. C [...] 07/24/2024 Generated for Jose Manuel duff/Karon/Maisha on: 0 02/12/2025 03:44 PM EDT
--- OUTSIDE RECORDS SUMMARY | 2024-08-13 10:00 | XMS_ITS ---
Author Organization [facility] Address [address] [place] [address] Care Team Providers Care Dewaterer Operator Name Role Phone Lisa Card Primary Care Provider Unavailab Sal Omalley Unavailable [phone] Anne Lin Unavailable [phone] Encounters Encounter Location Date Provider Diagnosis [address] [address] 08/13/2024 Anne Lin Plan Of Treatment Next Appt Details Provider Name:Sal Mace , 05/06/2025 02:30:00 PM, [address] [place] [address], [phone], Progress Notes * Yahaira JAINDOB: [birth year] (79 yo F)Acc No.[id number]:08/13/2024 Progress Notes Patient: Yahaira GOLDBERG Provider: Heber [...] 08/13/2024 Generated for Jose Manuel Arnold/Maisha on: 0 02/12/2025 03:44 PM EDT
--- NOTE | 2025-02-12 13:24 | MHC.OFFVIS ---
Vital Signs 02/12/25 13:25 Height 5 ft 1 in BMI Reason not done Patient refused/unable BP 152/68 H Blood Pressure Location Rt brachial Position Sitting Pulse 72 Pulse Source Pulse Oximeter Pulse Oximetry (%) 94 Oxygen Delivery Method Room Air Intake Visit Reasons: 30 m sp double Intake Note: Est pt for GERD + anemia mgmt. CC; C.O. intermittent constipation and diarrhea episodes. Pt would like to discuss citrucel and alternatives as well as ongoing dietary changes. 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 Patient will increase fiber to help her bulk stools. Avoid dietary triggers. Low FODMAP diet discussed with patient. List of food recommended as well as list of food to avoid given to patient. Script for cyclobenzaprine for patient's muscle cramping. Patient was encouraged to only take it at night time before bedtime. She will follow-up with us in 3 months, sooner on as needed basis. She is agreeable to this plan and verbalizes understanding of instructions. She was given the opportunity to ask questions and all questions answered. ? Thank you for allowing me to participate in her care New cyclobenzaprine 10 mg PO BEDTIME PRN 7 tabs 0RF muscle spasm Changed Changed From methylcellulose (laxative) take it with full glass of water 500 mg PO DAILY 90 tabs 2RF K59.00 Changed To methylcellulose (laxative) (Citrucel) take it with full glass of water 1,000 mg (2 x 500 mg) PO DAILY 180 tabs 2RF K59.[address] TYLER 11/09/2024 The patient is a pleasant 79-year-old woman who was admitted to the hospital after presenting to the emergency room at the request of her primary care provider because of significant anemia. She has had a recent TIA in September and has been started on Eliquis and is being evaluated with a heart monitor. She has had some shortness of breath since this time and blood work done through her primary care provider's office on November 08 showed a hematocrit of 26.8. She was referred to the emergency department. MCV was low at 69.4. Iron studies were done showing a saturation of 21%. She was transfused one unit of packed red blood cells and is scheduled to get a 2nd unit. On examination, she was evaluated with a rectal exam. This showed Hemoccult-positive stools. She denies any bright red blood per rectum or hematochezia. She has had no previous GI bleeding. She does not take NSAIDs and has no complaints of upper GI symptoms. She previously was evaluated with colonoscopy in January 2023 because of a positive Cologuard result. This showed a tubular adenoma. IMPRESSION: Anemia with Hemoccult-positive stools. This is suspicious for underlying gastrointestinal tract blood loss given her use of anticoagulants. I discussed with her the need for further evaluation with upper endoscopy as she has never had this. This can be arranged as an outpatient as she does not wish to stay in the hospital over the weekend. She is established with Dr. Tijreina in his office and I have asked her to call them on Monday and I will notify him of her admission over the weekend, but I think she is stable to be discharged and she should resume Eliquis until a firm date for the endoscopy is planned. She may not need repeat colonoscopy given the findings at her last one, which was less than 2 years ago. Small bowel capsule could be a possible next step if she continues to show signs of anemia after her blood transfusion. I agree with treating her with a proton pump inhibitor. UPPER ENDOSCOPY AND COLONOSCOPY Findings: Larynx:normal Esophagus: GE junction at 36 cm, diaphragm hiatus at 40 cm, schatzki ring noted with 4 cm fixed hiatal hernia Stomach: atrophic gastritis. Biopsies were obtained. Grade 2 flap valve on retroflexed examination of the cardia. Duodenum: Normal bulb and descending duodenum, bx taken Intervention: Biopsies as noted above, COLONOSCOPY Instrument: Olympus variable stiffness pediatric scope 190L Colonoscopy Monitoring: Vital signs and clinical assessment, continuous EKG monitoring, Pulse oximetry, Carbon Dioxide monitoring and blood pressure monitoring were done throughout the procedure. Colon withdrawal time was 15 minutes. Procedure: The patient was placed in the left lateral decubitis position and pre-procedure medications were administered. After a digital rectal examination of the ano-rectum, the video colonoscope was inserted into the rectum and advanced through the colon to the cecum/TI. The colonoscope was slowly withdrawn in a retrograde panoramic fashion and the colon mucosa was carefully examined including a retroflexed view of the rectum. Findings and interventions are described below. Procedure Difficulty:moderate--used colowrap Findings: Terminal Ileum-normal Cecum: a few conglomerations of AVM noted in the cecum from 8-10 mm in diameter. these were lifted with eleview and then ablated using APC with hemospray then applied. Ascending Colon: normal Transverse Colon -normal Descending Colon:normal Sigmoid Colon: mild to moderate diverticulosis Rectum: Retroflexion with small internal hemorrhoids, grade I Anorectum - normal Colon preparation: [place] Bowel Preparation Scale Right colon; 2 Transverse colon: 2 Left colon; 2 (0 = Unprepared colon segment with mucosa not seen due to solid stool that cannot be cleared. 1 = Portion of mucosa of the colon segment seen, but other areas of the colon segment not well seen due to staining, residual stool and/or opaque liquid. 2 = Minor amount of residual staining, small fragments of stool and/or opaque liquid, but mucosa of colon segment seen well. 3 = Entire mucosa of colon segment seen well with no residual staining, small fragments of stool or opaque liquid) Impression and Post Procedure Diagnosis: Endoscopy Findings: hiatal hernia schatzki ring atrophic gastritis Colonoscopy Findings: AVM internal hemorrhoids diverticulosis Plan: Await Pathology results Repeat Colonoscopy in 5 years due to previous polyp history if health allows or earlier if clinically indicated High fiber diet leaflet avoid straining at stool, epsom salts and sitz bath, anusol supps or cream ok to start anticoagulation in 3 days from now low dose iron supplementation daily cont with PPI and GERD precautions PATHOLOGY RESULTS Diagnosis A. Duodenum, biopsy: Duodenal mucosa within normal limits; preserved villous architecture and no increased intraepithelial lymphocytes seen. B. Stomach, biopsy: Gastric biopsy mucosa within normal limits; negative for Helicobacter pylori, intestinal metaplasia and dysplasia TODAY'S VISIT Patient presents for follow up s/p EGD and Colonoscopy after was found to have rectal bleeding and anemia in November.? Patient was last seen in this office about 1 year ago for?postprandial diarrhea most likely related to insufficient emptying. At that visit we discussed starting a fiber supplement to help bulk the stools to to avoid dietary triggers. We discussed low fodmap diet as well. Was given a cyclobenzaprine prescription to aid in muscle cramping.? In October was admitted for evaluation of significant anemia, found during outpatient labs, with a hemoglobin of 26.8 and low MCV. She has a history of recent TIA and is on anticoagulation. Workup revealed guaiac positive stools, raising concern for GI blood loss. She was transfused and was reported stable for discharge with outpatient follow up, for upper endoscopy and colonoscopy.? Endoscopy showed hiatal hernia, schatzki ring and atrophic gastritis. 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 Patient was discharged home and restarted Eliquis 3 days after procedure.. Patient was started on Pantoprazole, Iron and recommended high fiber diet. Was prescribed citrucel. Recommend repeat colonoscopy in 5 years if health allows or sooner if needed.? Today reports things are going well, patient has daughter on the phone to participate in the visit t. Had no significant issues post procedures and has had no difficulty swallowing, rectal bleeding, pain or further issues.?Has loose stools, not entirely formed daily. Reports she is very gassy and believes this is secondary to her iron supplementation. Is concerned about taking the citrucel due to many ongoing health issues this summer. Tries to eat foods high in fiber and frequently enjoys eating broccoli. GERD feels well managed today and continues with Pantoprazole 20mg daily. Patient denies dysphagia, dyspepsia, odynophagia, heartburn, early satiety, epigastric pain, lower abdominal pain, belching, constipation, bloating, melena, hematochezia, ribbon like stools, nausea, vomiting, unintentional weight loss.? [facility] Medical History (Updated 02/12/25 @ 14:37 by Emily Terry, [facility]-) Schatzki's ring Rectal bleed IBS (irritable bowel syndrome) Allergies Urticaria Dyslipidemia Type 2 diabetes mellitus without complication, without long-term current use of insulin Hearing impairment History of adenomatous polyp of colon Lumbar back pain with radiculopathy affecting left lower extremity Obesity (BMI 30-39.9) Paget's disease of the bone Osteopenia GERD (gastroesophageal reflux disease) Impaired fasting glucose Anxiety and depression Essential hypertension Surgical History History of back surgery Hx of LASIK Hx of left cataract extraction Hx of tubal ligation H/O colonoscopy History of partial hysterectomy History of appendectomy History of cholecystectomy H/O breast surgery History of lumbar discectomy Social History Household Members: None Housing: House Are you a primary direct care worker to a significant other at home: No Do you presently have visiting nurse or other home services: No Alcohol intake: never Patient Tobacco Use Status: Never used Tobacco e-Cigarette/Vaping Use: Never Used Second Hand Smoke Exposure: No Advance Directives Date on File: 11/02/22 service: No Current occupational status: retired Cognitive needs: No Hearing needs: No Vision needs: Yes (Reading glasses) Review of Systems Const Denies weight gain and Denies weight loss ENT Reports no additional complaints, Denies dysphagia and Denies odynophagia Card Reports no additional complaints Resp Reports no additional complaints GI Denies abdominal pain, Denies belching, Denies melena, Denies bloating, Denies change in bowel habits, Denies dysphagia, Denies excessive flatus, Denies dyspepsia, Denies heartburn, Denies diarrhea, Reports loose stools (Occasionally), Denies nausea, Denies odynophagia and Denies vomiting Reports no additional complaints Musc Reports no additional complaints Neuro Reports no additional complaints Psych Reports no additional complaints Endo Reports no additional complaints Physical Exam Vital Signs: Last Vital Signs Pulse 72 02/12/25 13:25 BP 152/68 H 02/12/25 13:25 Pulse Ox 94 02/12/25 13:25 Oxygen Delivery Method Room Air 02/12/25 13:25 Const General: cooperative, healthy appearing and comfortable Nutritional Appearance: obese Orientation/consciousness: patient oriented x3 Limitations: no limitations Neck Neck: Yes normal visual inspection, Yes full ROM, Yes no lymphadenopathy, Yes trachea midline and Yes supple Thyroid: Thyroid normal Lymphatic: no lymphadenopathy noted Chest Chest palpation & inspection: normal inspection of the chest Resp Effort & Inspection: normal respiratory effort and able to speak in complete sentences Auscultation: clear to auscultation bilaterally Cardio Rhythm: regular rhythm GI Inspection: Yes normal to inspection, No distended and Yes obesity Palpation (GI): No hepatosplenomegaly present and No Rebound tenderness present Percussion: Yes normal to percussion Auscultation: normal bowel sounds General: Yes no CVA tenderness Back/Spine/Pelvis Back: no CVA tenderness Cervical Spine: cervical ROM normal and No cervical muscular tenderness Thoracic/Lumbar Spine: thoracic and lumbar spine normal to inspection Skin General skin exam: no rashes or lesions noted, elasticity normal and turgor normal Neuro General: patient oriented x3 Extrem General: Yes normal to inspection, Yes full ROM and Yes capillary refill normal Psych Appearance: grossly normal Mental Status: mental status grossly normal Assessment & Plan Assessment & Plan (1) GERD (gastroesophageal reflux disease): Code(s): K21.9 - Gastro-esophageal reflux disease without esophagitis Category: Medical Qualifiers: Esophagitis presence: esophagitis presence not specified Qualified Code(s): K21.9 - Gastro-esophageal reflux disease without esophagitis (2) History of adenomatous polyp of colon: Code(s): Z86.010 - Personal history of colon polyps Category: Medical (3) Rectal bleed: Code(s): K62.5 - Hemorrhage of anus and rectum Category: Medical (4) Schatzki's ring: Code(s): K22.2 - Esophageal obstruction Category: Medical Plan PCP order CBC patient was encouraged to get it done. Currently she is not having any rectal bleed or melena. Continue pantoprazole daily. Continue avoiding dietary triggers and late night snacking. Staying upright for minimum 3 hours after meals discussed with patient. Patient was encouraged to take Citrucel 1-2 tablets daily to avoid diarrhea. Continue iron. Follow-up in 6 months, sooner on as needed basis. She is agreeable to this plan and verbalizes understanding of instructions. She was given the opportunity to ask questions and all questions answered. Thank you for allowing me to participate in her care Orders: Orders Comprehensive Met. Panel Today K21.9 - Gastro-esophageal reflux disease without esophagitis Medications: New methylcellulose (laxative) (Citrucel) 500 mg PO DAILY 90 tabs 3RF Refilled pantoprazole 20 mg PO DAILY@0630 90 tabs 2RF 90 days Coding Level of Care Code Est Pt Level 4 (32094) Complex EM visit Add On G2211 Diagnoses Gastroesophageal reflux disease, unspecified whether esophagitis present K21.9 Esophagitis presence: esophagitis presence not specified History of adenomatous polyp of colon Z86.010 Rectal bleed K62.5 Schatzki's ring K22.2 Time Spent (min) 40 Comment 25 minutes spent with patient and additional 15 minutes spent reviewing her records
[2025-02-12 13:25] VITALS: BP 152/68; PULSE 72; O2SAT 94
--- OUTSIDE RECORDS SUMMARY | 2025-02-12 15:44 | XMS_ITS | Patient Health Record ---
Author Organization [facility] Physician Yoseph es Billing Info Address [address] [place] [address] [place] [address] Support Name Relationship Address Phone Tricia Real Emergency Contact [address] [place] [address] Yahaira Herring Guarantor Unknown Allergies Allergen [...] Problem Status W/U Status Risk Notes Problem 874304056672603 Spondylolisthesi s, lumbar region (M43.16) Active confirmed Problem 019560044 Radiculopathy, lumbar region (M54.16) Active confirmed Problem 10392696 Spinal stenosis, 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) Active confirmed Problem 355500945 Lumbar radiculopathy (M54.16) Active confirmed Problem 301480402 Lumbar spondylos is (M47.816) Active confirmed Problem 789296059 Lumbar radiculopathy, chronic (M54.16) Active confirmed Problem 394166058 Spondylolisthesi s, unspecified spinal region (M43.10) Active confirmed Problem 57164399 Hypertension, unspecified type (I10) Active confirmed Problem 662858757 Gastroesophageal reflux disease, unspecified whether esophagitis present (K21.9) Active confirmed Plan Of Treatment Future Test Test Name Order Date MRI-LUMBAR SPINE; W/O CONTRAST MATL (721 48) 08/18/2020 XRAY- SPINE LUMBAR AP AND LAT/SPOT (7210 0)([facility]) 11/12/2020 CT- LUMBAR SPINE W/O CONTRAST (63122)([facility]) 01/12/2021 XRAY- SPINE LUMBAR AP AND LAT/SPOT (7210 0)([facility]) 03/16/2021 CT- LUMBAR SPINE W/O CONTRAST (49458[facility] 07/13/2021 Insurance Providers Payer Name Payer Address Payer Phone Subscriber Number Group Number Insured Name Patient Relationship to Insured Coverage Start Date Coverage End Date MEDICARE [place] PART B [address] [facility] [place], [place] [id number] Yahaira Herring Self - patient is the insured [facility] PPO [address] [place], [place] [phone] [id number] Yahaira Herring Self - patient is the insured Medical (General) History Medical History History ICD Code Lumbar radiculopathy Hypertension, unspecified type I10 Gastroesophageal reflux disease, unspeci fied whether esophagitis present K21.9 Spondylolisthesis, unspecified spinal re gion M43.10 Surgical History Surgery Date(Month/Year) hysterectomy gall bladder surgery appendectomy breast surgery Hospitalization History Reason Date(Month/Year) See Above
--- OUTSIDE RECORDS SUMMARY | 2025-02-12 15:44 | XMS_ITS | Clinical Summary ---
Author Organization [facility] Address [address] [place] [address] Care Team Providers Care Tack Driller Name Role Phone Unavailable Primary Care Provider [...] 75+ series) 09/04/2019 COVID-19 Vaccine ( season) 2025 Influenza Vaccine (#1) 2025 , 02/06/2017, 02/08/2016, [...]
--- OUTSIDE RECORDS SUMMARY | 2025-02-12 15:44 | XMS_ITS | Patient Health Record ---
Author Organization [facility] Address [address] [place] [address] Care Team Providers Care Sleeve Maker Name Role Phone Stephie Lisa Primary Care Provider Unavailab Sal Omalley Unavailable [phone] Anne Lin Unavailable [phone] Allergies Allergen (clinical drug ingredient) Drug/Non Drug [...] Duration) Notes Start Date End Date Status Rosuvastatin Calcium 5 MG TAKE 1 TABLET BY MOUTH ONCE DAILY. REPLACING ATORVASTATIN. Oral; Duration: 30 Days Active Metoprolol Tartrate 50 MG Oral; Duration : 30 Days Active Eliquis 5 MG Oral; Duration: 90 Days Active Extra Depth Orthopedic Shoes, (1) Pair With (3) Pair Custom Heat Molded Multidensity Innersoles Dx: NIDDM/PVD(E11.51), Hammertoe Foot Deformity(M20.41,M20. 42), Preulcerative Skin Lesion(s)(L85.1) Wear Daily; Duration: 365 days 10/15/2024 Active Citalopram & Diet Manage Prod Active Olmesartan Medoxomil 40 MG 1 tablet Oral ly Once a day Active Jardiance 10 MG 1 tablet Orally Once a day Active Gabapentin Unknown Pantoprazole Sodium 20 MG 1 tablet 1/2 t o 1 hour before morning meal Orally Once a day Active Losartan Potassium U nknown Citrucel 500 MG 2 tablets with a ful l glass of water as needed Orally Six times a day Active hydroCHLOROthiazide Not-Taking Atenolol Not-Taking Citalopram Hydrobromide 20 MG Oral; Duration: 90 Days Active Immunizations Vaccine Route Administration Date Status Comme nts Influenza Unknown 01/21/2024 Administered Social History Tobacco Use: Social History Observation [...] Problem Acquired hammer toe of right foot (4584090227043 105) Other hammer toe(s) (acquired), right foot (M20.41) Active confirmed Problem Acquired hammer toe of left foot (4995038899782 103) Other hammer toe(s) (acquired), left foot (M20.42) Active confirmed Problem Type 2 diabetes mellitus with peripheral angiopathy (113969380) Type 2 diabetes mellitus with diabetic peripheral angiopathy without gangrene (E11.51) Active confirmed Q7(A), Q8(2B), Q9(1B,2C) Vital Signs Blood pressure diastolic 84 mm Hg 01/17/2025 Height 5 ft 1 in in 01/17/2025 Blood pressure systolic 123 mm Hg 01/17/2025 Weight 200 lbs 01/17/2025 BMI 37.79 kg/m2 01/17/2025 Procedures Procedure Date Ordered Date Performed Result Body Sit e 39920-MHVOCEW NAIL, 1-5 10/15/2024 N/A 23726-NGBF SKIN LESIONS, 2 TO 4 10/15/2024 N/A Y1265-YMSBCGWP DYSTROPHIC NAILS ANY # 10/15/2024 N/A 19241-IPUXVXZ NAIL, 1-5 01/17/2025 N/A 36861-PACL SKIN LESIONS, 2 TO 4 01/17/2025 N/A O2082-ZXDFBZPZ DYSTROPHIC NAILS ANY # 01/17/2025 N/A Encounters Encounter Location Date Provider Diagnosis [address] [address] 10/15/2024 Sal Mace Type 2 diabetes mellitus with diabetic peripheral angiopathy without gangrene E11.51 ; Other hammer toe(s) (acquired), right foot M20.41 ; Tinea unguium B35.1 ; Pain in right toe(s) M79.674 ; Pain in left toe(s) M79.675 and Other hammer toe(s) (acquired), left foot M20.[address] [address] 01/17/2025 Sal Mace Type 2 diabetes mellitus with diabetic peripheral angiopathy without gangrene E11.51 ; Tinea unguium B35.1 ; Pain in right toe(s) M79.674 and Pain in left toe(s) M79.[address] [address] 07/24/2024 Anne Lin [address] [address] 07/31/2024 Anne Lin [address] [address] 09/26/2024 Anne Lin Assessments Encounter Date Diagnosis (ICD Code) Assessment Notes Treatment Notes Treatment Clinical Notes Section Notes 10/15/2024 Other hammer toe(s) (acquired), right foot (ICD-10 - M20.41) Patient Educated with: DIABETIC FOOT CARE INSTRUCTIONS.p df (DIABETIC FOOT CARE INSTRUCTIONS.p df) 10/15/2024 Type 2 diabetes mellitus with diabetic peripheral angiopathy without gangrene (ICD-10 - E11.51) Q7(A), Q8(2B), Q9(1B,2C) 01/17/2025 Type 2 diabetes mellitus with diabetic peripheral angiopathy without gangrene (ICD-10 - E11.51) Q7(A), Q8(2B), Q9(1B,2C) 01/17/2025 Tinea unguium (ICD-10 - B35.1) 10/15/2024 Tinea unguium (ICD-10 - B35.1) 10/15/2024 Pain in right toe(s) (ICD-10 - M79.674) 01/17/2025 Pain in right toe(s) (ICD-10 - M79.674) 01/17/2025 Pain in left toe(s) (ICD-10 - M79.675) 10/15/2024 Pain in left toe(s) (ICD-10 - M79.675) 10/15/2024 Other hammer toe(s) (acquired), left foot (ICD-10 - M20.42) Plan Of Treatment Pending Test Test Name Order Date 29387-NAQCOOA NAIL, 6 OR MORE 06/14/2012 00996-MMJZJEK NAIL, 1-02/25/2013 97079-UMYSNWX NAIL, -10/15/2024 52877-XZBADSR NAIL, 1-08/29/2012 44270-ARYKMFA NAIL, -11/28/2012 82686-XDSVSDV NAIL, 1-01/17/2025 73883-Umfkqcfw Plate 11/28/2012 19186-Zdpzrtfo Plate 02/25/2013 64215-Odiafhfd Plate 06/14/2012 22663-Aiyiznfv Plate 08/29/2012 06507-CKKF SKIN LESIONS, 2 TO 4 01/18/20 25 04914-QMHJ SKIN LESIONS, 2 TO 4 10/16/19 25 A8706-MLMZNCHL DYSTROPHIC NAILS ANY # C7627-PNWMLIVV DYSTROPHIC NAILS ANY # Next Appt Details Provider Name:Sal Mace , 05/06/2025 02:30:00 PM, [address] [place] [address], [phone], Insurance Providers Payer Name Payer Address Payer Phone Subscriber Number Group Number Insured Name Patient Relationship to Insured Coverage Start Date Coverage End Date Medicare National Govt [facility] [address] [place] [address] [id number] Yahaira Herring Self - patient is the insured 0 [employer] Blue [employer] [address] [place] [address] [phone] [id number] Yahaira Herring Self - patient is the insured 0 Medical (General) History Medical History History ICD Code mumps measles high blood pressure chicken pox Pagets disease of bones arthritis Cataracts Menieres disease Reflux ( GERD) Sciatica Joint implants/screws Surgical History Surgery Date(Month/Year) nueroma left foot CABG surgery Back surgery 08/13/2024 Hospitalization History Reason Date(Month/Year) Bleeding from rectum 12/13 TIA- [facility] [place] 10/02/2024
--- OUTSIDE RECORDS SUMMARY | 2025-02-12 15:45 | XMS_ITS | Patient Health Record ---
Author Organization [facility] Address [address] [place] [address] [address] [place] [address] Care Team Providers Care Cotton Weigher Name Role Phone Karyna Clarke Unavailable [phone] Reason For Referral No Information Medications Medication SIG (Take, Route, Frequency, Duration) Notes Start Date End Date Status hydroCHLOROthiazide 1 ORAL daily; Duration: -3 [facility] 09/24/2012 Active Citalopram Hydrobromide 20MG ORAL; Duration: [place]3 [facility] [place] CeleBREX 200MG ORAL; Duration: -3 [facility] [place] 10/15/2013 Active Vitamin E 200UNITS 1 ORAL daily; Duration: -3 [facility] [place] 09/24/2012 Active Atenolol 25MG 1 ORAL DAILY; Duration: -3 [facility] [place] 09/24/2012 Active Calcium 1 ORAL daily; Duration: -3 [facility] [place] 09/24/2012 Active Vitamin D3 1000 IU ORAL daily; Duration : -3 [facility] [place] 09/24/2012 Active [place] Jelly 1 ORAL daily; Duration: -3 [facility] [place] 09/24/2012 Active Problems Problem Type SNOMED Code ICD Code Onset Dates Problem Status W/U Status Risk Notes Problem Menopausal symptom (23429473) Symptomatic menopausal or female climacteric states (627.2) Active confirmed Major Problem Gynecological examination normal (319543124220745) Routine gynecological examination (V72.31) Active confirmed Diag Problem Exercises teaching, guidance, and counseling (027519031) Exercise counseling (V65.41) Active confirmed Diag Problem Screening for malignant neoplasm of colon (041437870) Special screening for malignant neoplasms, colon (V76.51) Active confirmed Major Plan Of Treatment No Information Insurance Providers Payer Name Payer Address Payer Phone Subscriber Number Group Number Insured Name Patient Relationship to Insured Coverage Start Date Coverage End Date MEDICARE [address] [place] [id number] NATALY JAIN Self - patient is the insured 1 [employer]EX [address] [place] [address] [phone] [id number] SILVESTRE JAINRIETTA Self - patient is the insured 1
== END 2025-02-12 14:00 | disposition home or self-care (01) ==
LOC: HO.HGI 13:22
PROVIDERS: PCP Internal Medicine; Visit Provider Nurse Practitioner Family
DX: K21.9 Gastro-esophageal reflux disease without esophagitis (principal); Z86.0100 Personal history of colon polyps, unspecified; K62.5 Hemorrhage of anus and rectum; K22.2 Esophageal obstruction
CPT/HCPCS: 99214; G2211

== ENCOUNTER → 2025-02-12 13:21 | Outpatient (BNVA) | payer MEDICARE, SELFPAY | PROVIDERS: PCP Internal Medicine; Visit Provider Nurse Practitioner Family | DX: K21.9 Gastro-esophageal reflux disease without esophagitis (principal); D12.6 Benign neoplasm of colon, unspecified; K62.5 Hemorrhage of anus and rectum; K22.2 Esophageal obstruction; D64.9 Anemia, unspecified; R19.7 Diarrhea, unspecified; K59.00 Constipation, unspecified; Z79.01 Long term (current) use of anticoagulants | CPT/HCPCS: 99212 ==

== ENCOUNTER 2025-02-17 10:33 | Outpatient (REF) | payer MEDICARE, SELFPAY ==
--- OUTSIDE RECORDS SUMMARY | 2024-07-24 10:00 | XMS_ITS ---
Author Organization [facility] [place] Address [address] [place] [address] Care Team Providers Care Spud Sorter Name Role Phone Lisa Card Primary Care Provider Unavailab Sal Omalley Unavailable [phone] Anne Lin Unavailable [phone] Allergies Allergen (clinical drug ingredient) Drug/Non Drug [...] Negative Encounters Encounter Location Date Provider Diagnosis [facility] [place] [address] [place] [address] 07/24/2024 Anne Lin Plan Of Treatment Next Appt Details Provider Name:Sal Mace , 05/06/2025 02:30:00 PM, [address] [place], [address], Progress Notes * Yahaira JAINDOB: [birth year] (79 yo F)Acc No.[id number]:07/24/2024 Progress Notes Patient: Yahaira GOLDBERG Provider: Heber Lin DPM :1945 A ge:78 Y S ex:Female Date:07/24/2024 Address:[address] [place] [address], [place] Pcp:Lisa Card Subjective: * Chief Complaints: [...] enies. C ardiovascular: Pacemaker d enies. 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 W PW d enies. C [...] Generated for Jose Manuel duff/Karon/Maisha on: 0 02/17/2025 11:49 AM EDT
--- OUTSIDE RECORDS SUMMARY | 2024-08-13 10:00 | XMS_ITS ---
Author Organization [facility] Address [address] [place] [address] Care Team Providers Care Nuclear Logging Engineer Name Role Phone Lisa Card Primary Care Provider Unavailab Sal Omalley Unavailable [phone] Anne Lin Unavailable [phone] Encounters Encounter Location Date Provider Diagnosis [address] [address] 08/13/2024 Anne Lin Plan Of Treatment Next Appt Details Provider Name:Sal Mace , 05/06/2025 02:30:00 PM, [address] [place] [address], [phone], Progress Notes * Yahaira JAINDOB: [birth year] (79 yo F)Acc No.[id number]:08/13/2024 Progress Notes Patient: Yahaira GOLDBERG Provider: Heber [...] Date: 0 08/13/2024 Generated for Jose Manuel duff/Karon/Maisha on: 0 02/17/2025 11:49 AM EDT
--- OUTSIDE RECORDS SUMMARY | 2025-02-17 11:49 | XMS_ITS | Patient Health Record ---
Author Organization [facility] Address [address] [place] [address] Care Team Providers Care Registered Dental Assistant Name Role Phone Stephie Lisa Primary Care Provider Unavailab Sal Omalley Unavailable [phone] Anne Lin Unavailable [phone] Allergies Allergen (clinical drug ingredient) Drug/Non Drug [...] Problem Acquired hammer toe of right foot (6821091133384 105) Other hammer toe(s) (acquired), right foot (M20.41) Active confirmed Problem Acquired hammer toe of left foot (7803729843930 103) Other hammer toe(s) (acquired), left foot (M20.42) Active confirmed Problem Type 2 diabetes mellitus with peripheral angiopathy (564475318) Type 2 diabetes mellitus with diabetic peripheral angiopathy without gangrene (E11.51) Active confirmed Q7(A), Q8(2B), Q9(1B,2C) Vital Signs Blood pressure diastolic 84 mm Hg 01/17/2025 Height 5 ft 1 in in 01/17/2025 Blood pressure systolic 123 mm Hg 01/17/2025 Weight 200 lbs 01/17/2025 BMI 37.79 kg/m2 01/17/2025 Procedures Procedure Date Ordered Date Performed Result Body Sit e 51508-QAIEZJT NAIL, 1-5 10/15/2024 N/A 73500-DNAB SKIN LESIONS, 2 TO 4 10/15/2024 N/A G3774-UCOHTAAA DYSTROPHIC NAILS ANY # 10/15/2024 N/A 03958-KTMMSAE NAIL, 1-5 01/17/2025 N/A 54648-KRDQ SKIN LESIONS, 2 TO 4 01/17/2025 N/A H8612-UNIEUZHL DYSTROPHIC NAILS ANY # 01/17/2025 N/A Encounters Encounter Location Date Provider Diagnosis [address] [address] 10/15/2024 Sal Mace Type 2 diabetes mellitus with diabetic peripheral angiopathy without gangrene E11.51 ; Other hammer toe(s) (acquired), right foot M20.41 ; Tinea unguium B35.1 ; Pain in right toe(s) M79.674 ; Pain in left toe(s) M79.675 and Other hammer toe(s) (acquired), left foot M20.[address] [address] 01/17/2025 Sal Mace Type 2 diabetes mellitus with diabetic peripheral angiopathy without gangrene E11.51 ; Tinea unguium B35.1 ; Pain in right toe(s) M79.674 and Pain in left toe(s) M79.[address] [address] 07/24/2024 Anne Lin [address] [address] 07/31/2024 Anne Lin [address] [address] 09/26/2024 Anne Lin Assessments Encounter Date Diagnosis [...] Treatment Pending Test Test Name Order Date 26576-OSGCSDJ NAIL, 6 OR MORE 06/14/2012 45656-PHMPTSY NAIL, 1-02/25/2013 90443-TDJAYPG NAIL, -10/15/2024 08667-YWHSRUS NAIL, 1-08/29/2012 09550-VOVVBDW NAIL, -11/28/2012 59479-NPWNDHB NAIL, 1-01/17/2025 83487-Rovhttpm Plate 11/28/2012 22386-Ddtsnrzt Plate 02/25/2013 42296-Gkljsvoj Plate 06/14/2012 08209-Wwxpzmwj Plate 08/29/2012 62685-GXXJ SKIN LESIONS, 2 TO 4 01/18/20 25 17876-QTMJ SKIN LESIONS, 2 TO 4 10/16/19 25 G5265-WXIUABCS DYSTROPHIC NAILS ANY # U7819-WSFOSZDB DYSTROPHIC NAILS ANY # Next Appt Details Provider Name:Sal Mace , 05/06/2025 02:30:00 PM, [address] [place] [address], [phone], Insurance Providers Payer Name Payer Address Payer Phone Subscriber Number Group Number Insured Name Patient Relationship to Insured Coverage Start Date Coverage End Date Medicare National Govt [facility] [address] [place] [address] [id number] Yahaira Herring Self - patient is the insured 0 [employer] Blue [employer] [address] [place] [address] [phone] [id number] Yahaira Herring Self - patient is the insured 0 Medical (General) History Medical History History ICD Code mumps measles high blood pressure chicken pox Pagets disease of bones arthritis Cataracts Menieres disease Reflux ( GERD) Sciatica Joint implants/screws Surgical History Surgery Date(Month/Year) nueroma left foot CABG surgery Back surgery 08/13/2024 Hospitalization History Reason Date(Month/Year) Bleeding from rectum 12/13 [facility]- [facility] [place] 10/02/2024
--- OUTSIDE RECORDS SUMMARY | 2025-02-17 11:49 | XMS_ITS | Patient Health Record ---
Author Organization [facility] Physician Yoseph es Billing Info Address [address] [place] [address] [place] [address] Support Name Relationship Address Phone Tricia Real Emergency Contact [address] [place] [address] Yahaira Herring Guarantor Unknown [phone] Allergies Allergen (clinical drug ingredient) Drug/Non Drug [...] Problem Status W/U Status Risk Notes Problem 398041620312633 Spondylolisthesi s, lumbar region (M43.16) Active confirmed Problem 609484850 Radiculopathy, lumbar region (M54.16) Active confirmed Problem 77553287 Spinal stenosis, 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) Active confirmed Problem 298039045 Lumbar radiculopathy (M54.16) Active confirmed Problem 024784480 Lumbar spondylos is (M47.816) Active confirmed Problem 020491593 Lumbar radiculopathy, chronic (M54.16) Active confirmed Problem 693697132 Spondylolisthesi s, unspecified spinal region (M43.10) Active confirmed Problem 45507703 Hypertension, unspecified type (I10) Active confirmed Problem 744894366 Gastroesophageal reflux disease, unspecified whether esophagitis present (K21.9) Active confirmed Plan Of Treatment Future Test Test Name Order Date MRI-LUMBAR SPINE; W/O CONTRAST MATL (721 48) 08/18/2020 XRAY- SPINE LUMBAR AP AND LAT/SPOT (7210 0)([facility]) 11/12/2020 CT- LUMBAR SPINE W/O CONTRAST (84433)([facility]) 01/12/2021 XRAY- SPINE LUMBAR AP AND LAT/SPOT (7210 0)([facility]) 03/16/2021 CT- [facility]70116[facility] 07/13/2021 Insurance Providers Payer Name Payer Address Payer Phone Subscriber Number Group Number Insured Name Patient Relationship to Insured Coverage Start Date Coverage End Date MEDICARE [place] PART B [address] [facility] [place] [place] [id number] Yahaira Herring Self - patient is the insured [facility] PPO [address] [place], [place] [id number] Yahaira Herring Self - patient is the insured Medical (General) History Medical History History ICD Code Lumbar radiculopathy Hypertension, unspecified type I10 Gastroesophageal reflux disease, unspeci fied whether esophagitis present K21.9 Spondylolisthesis, unspecified spinal re gion M43.10 Surgical History Surgery Date(Month/Year) breast surgery appendectomy gall bladder surgery hysterectomy Hospitalization History Reason Date(Month/Year) See Above
--- OUTSIDE RECORDS SUMMARY | 2025-02-17 11:50 | XMS_ITS | Clinical Summary ---
Author Organization [employer] Address [address] [facility] 7[address] [place] [address] Care Team Providers Care Ferry Terminal Agent Name Role Phone Unavailable Primary Care Provider [...] patient's age to complete this topic Insurance [facility] MED CARE MEDICARE
--- OUTSIDE RECORDS SUMMARY | 2025-02-17 11:50 | XMS_ITS | Patient Health Record ---
Author Organization [facility] Address [address] [place] [address] [address] [place] [address] Care Team Providers Care Clinical Research Coordinator Name Role Phone Karyna Clarke Unavailable [phone] Reason For Referral No Information Medications Medication SIG (Take, Route, Frequency, Duration) Notes Start Date End Date Status hydroCHLOROthiazide 1 ORAL daily; Duration: -3 [facility] 09/24/2012 Active Citalopram Hydrobromide 20MG ORAL; Duration: -3 [facility] [place]- Active CeleBREX 200MG ORAL; Duration: -3 [facility] [place] 10/15/2013 Active Vitamin E 200UNITS 1 ORAL daily; Duration: -3 [facility] [place] 09/24/2012 Active Atenolol 25MG 1 ORAL DAILY; Duration: -3 [facility] [place] 09/24/2012 Active Calcium 1 ORAL daily; Duration: -3 [facility] [place]- 09/24/2012 Active Vitamin D3 1000 IU ORAL daily; Duration : -3 [facility] [place]- 09/24/2012 Active [place] Jelly 1 ORAL daily; Duration: -3 [facility] [place] 09/24/2012 Active Problems Problem Type SNOMED Code ICD Code Onset Dates Problem Status W/U Status Risk Notes Problem Menopausal symptom (98912489) Symptomatic menopausal or female climacteric states (627.2) Active confirmed Major Problem Gynecological examination normal (238930397607227) Routine gynecological examination (V72.31) Active confirmed Diag Problem Exercises teaching, guidance, and counseling (151080758) Exercise counseling (V65.41) Active confirmed Diag Problem Screening for malignant neoplasm of colon (932151849) Special screening for malignant neoplasms, colon (V76.51) Active confirmed Major Plan Of Treatment No Information Insurance Providers Payer Name Payer Address Payer Phone Subscriber Number Group Number Insured Name Patient Relationship to Insured Coverage Start Date Coverage End Date MEDICARE [address] [place] [id number] NATALY JAIN Self - patient is the insured 1 [employer]EX [address] [place] [address] [phone] [id number] SILVESTRE JAINRIETTA Self - patient is the insured 1
[2025-02-17 13:25] LABS: MANUAL DIFF FLAG NO
[2025-02-17 13:48] LABS: Hematocrit 46.3 % (37.0-47.0); Hemoglobin 14.5 g/dl (12.0-16.0); Mean Corpuscular HGB Conc 31.3 g/dl (31.0-35.0); Mean Corpuscular Hemoglobin 25.7 pg (27.0-33.0); Mean Corpuscular Volume 82.1 fL (80.0-98.0); Red Blood Count 5.64 X10*6/uL (4.20-5.50); White Blood Count 7.2 X10*3/uL (4.8-10.8)
[2025-02-17 13:49] LABS: Imm Gran Abs Auto 0.03 X10*3/uL (0.00-0.03); Imm Gran Pct Auto 0.4 % (0.0-0.4); Lymphocytes Absolute Auto 1.6 X10*3/uL (1.2-4.9); NRBC Abs Auto 0.000 X10*3/uL (0.0-0.012); NRBC Pct Auto 0.0 /100WBC (0.0-0.2); Platelet Count 279 X10*3/uL (160-400)
[2025-02-17 14:12] LABS: Alanine Aminotransferase 25 U/L (0-31); Albumin Level 4.2 g/dL (3.5-5.0); Alkaline Phosphatase 85 U/L (39-117); Anion Gap 11 (12-20); Aspartate Amino Transferase 23 U/L (5-31); Blood Urea Nitrogen 15 mg/dL (9-16); Calcium 9.3 mg/dL (8.4-10.2); Carbon Dioxide 26 mmol/L (22-29); Chloride 108 mmol/L (96-108); Cholesterol 138 mg/dL (<200); Estimated Glomerular Filt Rate > 60; HDL Cholesterol 44 mg/dL (>40); Iron 51 mcg/dL (30-160); Percent Iron Saturation 14 % (15-50); Potassium 4.4 mmol/L (3.3-5.1); Sodium 141 mmol/L (135-145); Total Iron Binding Capacity 374 mcg/dL (228-428); Total Protein 7.0 g/dL (6.5-8.0); Triglycerides 169 mg/dL (<150); Unsaturated Iron Binding 323 ug/dL
[2025-02-17 14:31] LABS: Folate 12.9 ng/mL (> or = 4.0); Vitamin B12 406 pg/mL (200-900)
[2025-02-19 17:53] LABS: Anti Nuclear Antibody Screen NEGATIVE (NEGATIVE)
== END 2025-02-17 10:34 | disposition home or self-care (01) ==
LOC: HO.HMGCLDS 10:33
PROVIDERS: PCP Internal Medicine
DX: Z00.00 Encounter for general adult medical examination without abnormal findings (principal); Z13.21 Encounter for screening for nutritional disorder; E78.00 Pure hypercholesterolemia, unspecified; D64.9 Anemia, unspecified; R21 Rash and other nonspecific skin eruption; K21.9 Gastro-esophageal reflux disease without esophagitis
CPT/HCPCS: 36415; 80053; 80061; 82607; 82746; 83540; 85025; 86038

== ENCOUNTER 2025-02-21 14:25 | Outpatient (AMB) | payer MEDICARE, SELFPAY ==
--- OUTSIDE RECORDS SUMMARY | 2024-07-24 10:00 | XMS_ITS ---
Author Organization [facility] [place] Address [address] [place] [address] Care Team Providers Care Car Changer Name Role Phone Lisa Card Primary Care Provider Unavailab Sal Omalley Unavailable [phone] Anne Lin Unavailable [phone] Allergies Allergen (clinical drug ingredient) Drug/Non Drug [...] Negative Encounters Encounter Location Date Provider Diagnosis [facility] [place] [address] [place] [address] 07/24/2024 Anne Lin Plan Of Treatment Next Appt Details Provider Name:Sal Mace , 05/06/2025 02:30:00 PM, [address] [place], [address], Progress Notes * Yahaira JAINDOB: [birth year] (79 yo F)Acc No.[id number]:07/24/2024 Progress Notes Patient: Yahaira GOLDBERG Provider: Heber Lin DPM :1945 A ge:78 Y S ex:Female Date:07/24/2024 Address:[address] [place] [address], [place]-[address] Pcp:Lisa Card Subjective: * Chief Complaints: [...] enies. C ardiovascular: Pacemaker d enies. 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 W PW d enies. C [...] Generated for Jose Manuel duff/Karon/Maisha on: 1 02:28 PM EDT
--- OUTSIDE RECORDS SUMMARY | 2024-08-13 10:00 | XMS_ITS ---
Author Organization [facility] Address [address] [place] [address] Care Team Providers Care Utilization Management Rn Name Role Phone Lisa Card Primary Care Provider Unavailab Sal Omalley Unavailable [phone] Anne Lin Unavailable [phone] Encounters Encounter Location Date Provider Diagnosis [address] [address] 08/13/2024 Anne Lin Plan Of Treatment Next Appt Details Provider Name:Sal Mace , 05/06/2025 02:30:00 PM, [address] [place] [address], [phone], Progress Notes * Yahaira JAINDOB: [birth year] (79 yo F)Acc No.[id number]:08/13/2024 Progress Notes Patient: Yahaira GOLDBERG Provider: Heber [...] 08/13/2024 Generated for Jose Manuel Arnold/Maisha on: 02:28 PM EDT
--- OUTSIDE RECORDS SUMMARY | 2025-02-21 14:28 | XMS_ITS | Patient Health Record ---
Author Organization [facility] Address [address] [address] Care Team Providers Care System Configuration Specialist Name Role Phone Stephie Lisa Primary Care Provider Unavailab Sal Omalley Unavailable [phone] Anne Lin Unavailable [phone] Allergies Allergen (clinical drug ingredient) Drug/Non Drug [...] Problem Acquired hammer toe of right foot (8843165627578 105) Other hammer toe(s) (acquired), right foot (M20.41) Active confirmed Problem Acquired hammer toe of left foot (3212062497877 103) Other hammer toe(s) (acquired), left foot (M20.42) Active confirmed Problem Type 2 diabetes mellitus with peripheral angiopathy (614387607) Type 2 diabetes mellitus with diabetic peripheral angiopathy without gangrene (E11.51) Active confirmed Q7(A), Q8(2B), Q9(1B,2C) Vital Signs Blood pressure diastolic 84 mm Hg 01/17/2025 Height 5 ft 1 in in 01/17/2025 Blood pressure systolic 123 mm Hg 01/17/2025 Weight 200 lbs 01/17/2025 BMI 37.79 kg/m2 01/17/2025 Procedures Procedure Date Ordered Date Performed Result Body Sit e 53464-XNZXQXP NAIL, 1-5 10/15/2024 N/A 08930-WBMQ SKIN LESIONS, 2 TO 4 10/15/2024 N/A F4208-SIDRIAVY DYSTROPHIC NAILS ANY # 10/15/2024 N/A 56317-VOIIXVN NAIL, 1-5 01/17/2025 N/A 47234-VFRM SKIN LESIONS, 2 TO 4 01/17/2025 N/A J6465-MWVJACVG DYSTROPHIC NAILS ANY # 01/17/2025 N/A Encounters Encounter Location Date Provider Diagnosis [address] [address] 10/15/2024 Sal Mace Type 2 diabetes mellitus with diabetic peripheral angiopathy without gangrene E11.51 ; Other hammer toe(s) (acquired), right foot M20.41 ; Tinea unguium B35.1 ; Pain in right toe(s) M79.674 ; Pain in left toe(s) M79.675 and Other hammer toe(s) (acquired), left foot M20.[address] [address] 01/17/2025 Sal Mace Type 2 diabetes mellitus with diabetic peripheral angiopathy without gangrene E11.51 ; Tinea unguium B35.1 ; Pain in right toe(s) M79.674 and Pain in left toe(s) M79.[address] [address] 07/24/2024 Anne Lin [address] [address] 07/31/2024 Anne Lin [address] [address] 09/26/2024 Anne Lin Assessments Encounter Date Diagnosis [...] Treatment Pending Test Test Name Order Date 58773-PHJKFHP NAIL, 6 OR MORE 06/14/2012 51575-XACULAD NAIL, 1-02/25/2013 71007-UFDPPFF NAIL, -10/15/2024 66091-OIEUXTI NAIL, 1-08/29/2012 22619-XDIZBXJ NAIL, -11/28/2012 01994-NFTFTKS NAIL, 1-01/17/2025 01826-Hebaftuw Plate 11/28/2012 92624-Ryzaxemm Plate 02/25/2013 07325-Geskftgd Plate 06/14/2012 70445-Kzsgewax Plate 08/29/2012 11084-KSDE SKIN LESIONS, 2 TO 4 01/18/20 25 10423-VRPS SKIN LESIONS, 2 TO 4 10/16/19 25 S1389-IEDFDUXB DYSTROPHIC NAILS ANY # W6849-IEWQPFOU DYSTROPHIC NAILS ANY # Next Appt Details Provider Name:Sal Mace , 05/06/2025 02:30:00 PM, [address] [place] [address], [phone], Insurance Providers Payer Name Payer Address Payer Phone Subscriber Number Group Number Insured Name Patient Relationship to Insured Coverage Start Date Coverage End Date Medicare National Govt [facility] [address] [place] [address] [id number] Yahaira Herring Self - patient is the insured 0 [employer] Blue Shield [address] [place] [address] [phone] [id number] Yahaira Herring Self - patient is the insured 0 Medical (General) History Medical History History ICD Code mumps measles high blood pressure chicken pox Pagets disease of bones arthritis Cataracts Menieres disease Reflux ( GERD) Sciatica Joint implants/screws Surgical History Surgery Date(Month/Year) nueroma left foot CABG surgery Back surgery 08/13/2024 Hospitalization History Reason Date(Month/Year) [place] [facility] [place]
--- OUTSIDE RECORDS SUMMARY | 2025-02-21 14:28 | XMS_ITS | Clinical Summary ---
Author Organization [facility] Address [address] [facility] 7t [place] [address] Care Team Providers Care Florist Designer Name Role Phone Unavailable Primary Care Provider [...] patient's age to complete this topic Insurance [facility] MED CARE MEDICARE
--- OUTSIDE RECORDS SUMMARY | 2025-02-21 14:28 | XMS_ITS | Patient Health Record ---
Author Organization [facility] Physician Yoseph es Billing Info Address [address] [place] [address] [place] [address] Support Name Relationship Address Phone Tricia Real Emergency Contact [address] [place] [address] Yahaira Herring Guarantor Unknown Allergies Allergen [...] Problem Status W/U Status Risk Notes Problem 674240099566315 Spondylolisthesi s, lumbar region (M43.16) Active confirmed Problem 842824383 Radiculopathy, lumbar region (M54.16) Active confirmed Problem 90242795 Spinal stenosis, 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) Active confirmed Problem 895616142 Lumbar radiculopathy (M54.16) Active confirmed Problem 982082764 Lumbar spondylos is (M47.816) Active confirmed Problem 145370748 Lumbar radiculopathy, chronic (M54.16) Active confirmed Problem 529572706 Spondylolisthesi s, unspecified spinal region (M43.10) Active confirmed Problem 82668772 Hypertension, unspecified type (I10) Active confirmed Problem 092174923 Gastroesophageal reflux disease, unspecified whether esophagitis present (K21.9) Active confirmed Plan Of Treatment Future Test Test Name Order Date MRI-LUMBAR SPINE; W/O CONTRAST MATL (721 48) 08/18/2020 XRAY- SPINE LUMBAR AP AND LAT/SPOT (7210 0)([facility]) 11/12/2020 CT- LUMBAR SPINE W/O CONTRAST (90482)([facility]) 01/12/2021 XRAY- SPINE LUMBAR AP AND LAT/SPOT (7210 0)([facility]) 03/16/2021 CT- [facility]AST (70504[facility] 07/13/2021 Insurance Providers Payer Name Payer Address Payer Phone Subscriber Number Group Number Insured Name Patient Relationship to Insured Coverage Start Date Coverage End Date MEDICARE [place] PART B [address] [place], [place] [id number] Yhaaira Herring Self - patient is the insured [facility] PPO/[id number] [address] [place], [place] [id number] Yahaira Herring Self - patient is the insured Medical (General) History Medical History History ICD Code Lumbar radiculopathy Hypertension, unspecified type I10 Gastroesophageal reflux disease, unspeci fied whether esophagitis present K21.9 Spondylolisthesis, unspecified spinal re gion M43.10 Surgical History Surgery Date(Month/Year) hysterectomy gall bladder surgery appendectomy breast surgery Hospitalization History Reason Date(Month/Year) See Above
--- OUTSIDE RECORDS SUMMARY | 2025-02-21 14:29 | XMS_ITS | Patient Health Record ---
[facility] Address [address] [place] [address] [address] [place] [address] Care Team Providers Care Carton Forming Machine Adjuster Name Role Phone Karyna Clarke Unavailable [phone] Reason For Referral No Information Medications Medication SIG (Take, Route, Frequency, Duration) Notes Start Date End Date Status hydroCHLOROthiazide 1 ORAL daily; Duration: -3 [facility] 09/24/2012 Active Citalopram Hydrobromide 20MG [...] [facility] 09/[facility]2012 Active [place] Jelly 1 ORAL daily; Duration: -3 [facility] 09/24/2012 Active Problems Problem Type SNOMED Code ICD Code Onset Dates Problem Status W/U Status Risk Notes Problem Menopausal symptom (33197058) Symptomatic menopausal or female climacteric states (627.2) Active confirmed Major Problem Gynecological examination normal (668489739996086) Routine gynecological examination (V72.31) Active confirmed Diag Problem Exercises teaching, guidance, and counseling (469790522) Exercise counseling (V65.41) Active confirmed Diag Problem Screening for malignant neoplasm of colon (271246212) Special screening for malignant neoplasms, colon (V76.51) Active confirmed Major Plan Of Treatment No Information Insurance Providers Payer Name Payer Address Payer Phone Subscriber Number Group Number Insured Name Patient Relationship to Insured Coverage Start Date Coverage End Date MEDICARE [address] [place], [place] [id number] NATALY JAIN Self - patient is the insured 1 [employer] [address] [place] [address] [phone] [id number] SILVESTRE JAINRIETTA Self - patient is the insured 1
[2025-02-21 14:31] VITALS: BP 132/72; PULSE 83; TEMP 36.1; O2SAT 94
--- NOTE | 2025-02-21 14:31 | A.OFFPC_ITS ---
Vital Signs 02/21/25 14:31 02/21/25 14:36 Height 5 ft 1 in 5 ft 1 in BMI Reason not done Patient refused/unable BP 132/72 Blood Pressure Location Lt brachial Lt brachial Position Sitting Sitting Pulse 83 Pulse Source Pulse Oximeter Pulse Oximeter Temp 97.0 F Temp Source Temporal Artery Scan Pulse Oximetry (%) 94 Oxygen Delivery Method Room Air Room Air Intake Visit Reasons: f/u DM w/ A1c - first week Feb Allergies codeine Adverse Reaction (Intermediate, Verified 02/21/25 14:38) seizure oxycodone (From Percocet) Adverse Reaction (Intermediate, Verified 02/21/25 14:38) Nausea and Vomiting Medication List - Last Reconciled 02/21/25 by Lisa Card PA-C alpha lipoic acid 100 mg PO DAILY apixaban (Eliquis) 5 mg PO BID ascorbate calcium (vitamin C) 500 mg PO DAILY blood-glucose meter (Freestyle [employer] meter) As directed calcium citrate 630 mg PO DAILY cetirizine (All Day Allergy (cetirizine)) 10 mg PO DAILY cholecalciferol (vitamin D3) 25 mcg PO DAILY citalopram 20 mg PO BEDTIME empagliflozin (Jardiance) 10 mg PO DAILY ferrous sulfate 220 mg (5 mL) PO DAILY lancets (FreeStyle Lancets) As directed; TID to check blood sugars methylcellulose (laxative) (Citrucel) 500 mg PO DAILY metoprolol tartrate 75 mg (1.5 x 50 mg) PO BID 30 days multivitamin 1 tab PO DAILY pantoprazole 20 mg PO DAILY@0630 90 days rosuvastatin 5 mg PO DAILY Tobacco use date assessed: 02/21/25 Fall risk assessment: No Falls in past year Last assessed Fall Risk: 02/21/25 Dental Screening Dental Screen Date: 02/21/25 Did you have a dental visit in the last 12 months?: Yes Did you have a dental problem in the last 6 months where you did not have access to dental care?: No Was dental information given to patient?: Patient has dentist HPI f/u DM w/ A1c - first week Feb HPI Details 79-year-old female with past medical his tory of dyslipidemia, type 2 diabetes mellitus, anxiety, depression, hypertension, GERD, obesity last seen 11/2024 coming in for follow up. In review of the notes, patient was seen by GI 01/2025 plan to repeat colonoscopy in 5 years. Presenting with management of Diabetes Mellitus Type 2. The patient's A1c has increased to 6.9 from 6.6, managed with Jardiance after metformin intolerance. She reports increased consumption of cookies, contributing to elevated A1c levels. Cholesterol is well-managed at 61 mg/dL, but triglycerides are slightly elevated at 169 mg/dL. [facility], [facility] Medical History Schatzki's ring Rectal bleed IBS (irritable bowel syndrome) Allergies Urticaria Dyslipidemia Type 2 diabetes mellitus without complication, without long-term current use of insulin Hearing impairment History of adenomatous polyp of colon Lumbar back pain with radiculopathy affecting left lower extremity Obesity (BMI 30-39.9) Paget's disease of the bone Osteopenia GERD (gastroesophageal reflux disease) Impaired fasting glucose Anxiety and depression Essential hypertension Surgical History History of back surgery Hx of LASIK Hx of left cataract extraction Hx of tubal ligation H/O colonoscopy History of partial hysterectomy History of appendectomy History of cholecystectomy H/O breast surgery History of lumbar discectomy Social History Household Members: None Housing: House Are you a primary disabilities caregiver to a significant other at home: No Do you presently have visiting nurse or other home services: No Alcohol intake: never Patient Tobacco Use Status: Never used Tobacco e-Cigarette/Vaping Use: Never Used Second Hand Smoke Exposure: No Advance Directives Date on File: 11/02/22 service: No Current occupational status: retired Cognitive needs: No Hearing needs: No Vision needs: Yes (Reading glasses) Questionnaire PHQ-9 Over the last 2 weeks, how often have you been bothered by any of the following problems? 1. Little interest or pleasure in doing things: not at all 2. Feeling down, depressed, or hopeless: not at all 3. Trouble falling or staying asleep, or sleeping too much: not at all 4. Feeling tired or having little energy: several days 5. Poor appetite or overeating: not at all 6. Feeling bad about yourself - or that you are a failure or have let yourself or your family down: not at all 7. Trouble concentrating on things, such as reading the newspaper or watching television: not at all 8. Moving or speaking so slowly that other people could have noticed. Or the opposite - being so fidgety or restless that you have been moving around a lot more than usual: not at all 9. Thoughts that you would be better off or of hurting yourself in some way: not at all Total score: 1 Source: Developed by Drs. Dinh Trejo, Nicole Bhagat, Bari Sheikh and colleagues, with an educational melvin from [employer]. Thrive Questionnaire Date Thrive assessed: 11/20/24 I am a: Patient What is your living situation today?: I have a steady place to live Within the past 12 months, did the food you bought not last and you didn't have the money to get more?: Never true Within the past 12 months, did you worry whether your food would run out before you got money to buy more?: Never true Do you have trouble paying for medicines?: No Do you have trouble getting transportation to medical appointments?: No Do you have trouble paying your heating and electricity bill?: No Do you have trouble taking care of your child, family member or friend?: No Do you have trouble with day-to-day activities such as bathing, preparing meals, shopping, managing finances, etc.?: I choose not to answer this question Are you currently unemployed and looking for a job?: No Are you interested in more education?: No Please select the resources that you would like help with: None Currently or been in a relationship where the following occur: No concerns reported THRIVE Score: 0 AUDIT C Alcohol Use Questionnaire (AUDIT-C) 1. How often do you have a drink containing alcohol?: Monthly or less 2. How many drinks containing alcohol do you have on a typical day when you are drinking?: 1 or 2 3. How often do you have six or more drinks on one occasion?: Never Total Score: 1 PARISH-7 AMB Questionnaire PARISH-7 Date PARISH - 7 assessed: 11/27/24 Feeling nervous, anxious, or on edge: 0 = Not at all Not being able to stop or control worryin = Not at all Worrying too much about different things: 0 = Not at all Trouble relaxin = Not at all Being so restless that it is hard to sit still: 0 = Not at all Becoming easily annoyed or irritable: 0 = Not at all Feeling afraid as if something awful might happen: 0 = Not at all Total PARISH-7 score (0-4 normal; 5-9 mild; 10-14 moderate; 15-21 severe): 0 Source: Developed by Drs. Dinh Trejo, Nicole Bhagat, Bari Sheikh and colleagues, with an educational melvin from [employer]. Review of Systems Const Denies body aches, Denies chills, Denies fever(s), Denies headache(s) and Denies poor appetite Eyes Reports no additional complaints ENT Denies dysphagia, Denies dizziness, Denies headache(s) and Denies odynophagia Card Denies chest pain, Denies syncope, Denies edema, Denies irregular heart rhythm, Denies lightheadedness and Denies dyspnea Resp Denies cough and Denies dyspnea GI Denies abdominal pain, Denies constipation, Denies dysphagia, Denies diarrhea, Denies nausea, Denies odynophagia and Denies vomiting Reports no additional complaints Musc Reports no additional complaints and Denies abnormal gait Skin/Breast Reports system reviewed and no additional complaints, except as documented Neuro Denies abnormal gait, Denies dizziness, Denies syncope and Denies headache(s) Psych Reports no additional complaints Physical exam (Primary Care) Vital Signs: Last Vital Signs Temp 97.0 F 02/21/25 14:31 Pulse 83 02/21/25 14:31 BP 132/72 02/21/25 14:31 Pulse Ox 94 02/21/25 14:31 Oxygen Delivery Method Room Air 02/21/25 14:36 Tobacco/Smoking Status: Tobacco use Status Tobacco use date assessed 02/21/25 02/21/25 14:40 Patient Tobacco Use Status Never used Tobacco 02/21/25 14:38 e-Cigarette/Vaping Use Never Used 02/21/25 14:38 PHQ-9: PHQ-9 Score PHQ-9: Total score 1 02/21/25 14:46 Thrive Assessment: Date of Thrive Assessment Date Thrive assessed 11/20/24 02/21/25 14:38 Currently or been in a relationship where the following occur: No concerns reported Const General: cooperative, healthy appearing, comfortable and no acute distress Orientation/consciousness: patient oriented x3 HENMT Head: Yes normocephalic Ears: hearing grossly normal bilaterally General nose exam: Normal external nose present Eyes General: appearance normal, both eyes and all related structures Conjunctivae: conjunctivae normal Neck Neck: Yes full ROM and Yes no lymphadenopathy Resp Effort & Inspection: normal respiratory effort Auscultation: clear to auscultation bilaterally, no crackles, no rales, no rhonchi and no wheezes Cardio Rate: regular rate Rhythm: regular rhythm Skin General skin exam: no rashes or lesions noted Neuro General: patient oriented x3 Gait exam (Neuro): Normal gait present Extrem General: Yes normal to inspection, Yes full ROM and No edema Psych Affect: normal affect Attitude: cooperative Insight: Good insight present (Psych) Judgement: Good judgement present (Psych) Results AMB Hemoglobin A1c AMB Hemoglobin A1c 6.9 % Last Edit by Fiorella Duke CMA on 02/21/25 14:50 Results Reviewed Results Reviewed: Laboratory Last Values Hgb A1c (Clinic) 6.9 % (4.0-6.0) H 02/21/25 14:41 Coding Level of Care Code Est Pt Level 3 (61170) Diagnoses Essential hypertension I10 Stenosis of left carotid artery I65.22 Laterality: left Type 2 diabetes mellitus without complication, without long-term current use of insulin E11.9 Obesity (BMI 30-39.9) E66.9 CVA (cerebral vascular accident) I63.9 Anemia, unspecified type D64.9 Anemia type: unspecified type Assessment & Plan Assessment & Plan (1) Essential hypertension: Code(s): I10 - Essential (primary) hypertension Category: Medical Plan: Continue on current blood pressure medication. Avoid salt intake and encourage healthy diet and regular exercise. (2) Carotid stenosis: Code(s): I65.29 - Occlusion and stenosis of unspecified carotid artery Category: Medical Qualifiers: Laterality: left Qualified Code(s): I65.22 - Occlusion and stenosis of left carotid artery Plan: Recently completed carotid US and plan to follow with Dr. Salinas next week. (3) Type 2 diabetes mellitus without complication, without long-term current use of insulin: Code(s): E11.9 - Type 2 diabetes mellitus without complications Category: Medical Plan: Decrease the amount of carbohydrates such as pasta, bread, rice, and potatoes and limit the amount of sweets. Although fruits are generally healthy they should be eaten in moderation as they are still high in sugar. Hemoglobin A1c goal of less than 7%. A1c 6.9% in the clinic today continue on current medication. (4) Obesity (BMI 30-39.9): Code(s): E66.9 - Obesity, unspecified Category: Medical Plan: Healthy diet and regular exercise is encouraged. (5) CVA (cerebral vascular accident): Comment: 10/03/2024 Small embolic looking left middle cerebral artery area ischemic infarction resulting in transient motor aphasia. Carotid stenosis is moderate and did not require any surgical intervention. Likely cause of this stroke was cardiac source of embolism. My recommendation is to anticoagulate for next 3-6 months and during that time investigated her heart for atrial fibrillation. Blood pressure control and aggressive statin management is also recommended. - per neurology note Code(s): I63.9 - Cerebral infarction, unspecified Category: Medical Plan: Advised good control of blood pressure, cholesterol and blood sugars. Continue to follow with Dr. Salinas and Dr. Aguilar (6) Anemia: Code(s): D64.9 - Anemia, unspecified Category: Medical Qualifiers: Anemia type: unspecified type Qualified Code(s): D64.9 - Anemia, unspecified Plan: She will continue to follow with GI. She is on iron supplement as well as Citrucel. Continue to monitor CBC and iron profile. Plan This note was constructed using voice recognition software. While every effort has been made to ensure accuracy and wet pan operator, still areas may have been included sometimes these areas may affect the content or meeting of the given symptoms. Total time spent caring for the patient today was 20 minutes. This includes time spent before the visit reviewing the chart, time spent during the visit, and time spent after the visit and documentation. Patient was informed and verbally consented to the use of an ambient scribe for clinic note documentation during this visit. Orders: Orders AMB Hemoglobin A1c Today Z13.9 - Encounter for screening, unspecified
== END 2025-02-21 15:19 | disposition home or self-care (01) ==
LOC: HO.HMCH 14:26
DX: E11.9 Type 2 diabetes mellitus without complications (principal); I63.9 Cerebral infarction, unspecified; E66.9 Obesity, unspecified; I65.22 Occlusion and stenosis of left carotid artery; I10 Essential (primary) hypertension; D64.9 Anemia, unspecified

== ENCOUNTER → 2025-02-21 14:25 | Outpatient (BNVA) | payer MEDICARE, SELFPAY | DX: E11.9 Type 2 diabetes mellitus without complications (principal); I10 Essential (primary) hypertension; I65.22 Occlusion and stenosis of left carotid artery; E66.9 Obesity, unspecified; D64.9 Anemia, unspecified; Z86.73 Personal history of transient ischemic attack (TIA), and cerebral infarction without residual deficits; Z79.899 Other long term (current) drug therapy | CPT/HCPCS: 83036; 96127; 99212 ==

== ENCOUNTER 2025-02-25 14:04 | Outpatient (AMB) | payer MEDICARE, SELFPAY ==
--- OUTSIDE RECORDS SUMMARY | 2024-07-24 10:00 | XMS_ITS ---
Author Organization [facility] [place] Address [address] [place] [address] Care Team Providers Care Lmft Name Role Phone Lisa Card Primary Care Provider Unavailab Sal Omalley Unavailable [phone] Anne Lin Unavailable [phone] Allergies Allergen (clinical drug ingredient) Drug/Non Drug [...] Negative Encounters Encounter Location Date Provider Diagnosis [facility] [place] [address] [place] [address] 07/24/2024 Anne Lin Plan Of Treatment Next Appt Details Provider Name:Sal Mace , 05/06/2025 02:30:00 PM, [address] [place], [address], Progress Notes * Yahaira JAINDOB: [birth year] (79 yo F)Acc No.[id number]:07/24/2024 Progress Notes Patient: Yahaira GOLDBERG Provider: Heber Lin DPM :1945 A ge:78 Y S ex:Female Date:07/24/2024 Address:[address] [place] [address], [place] Pcp:Lisa Card Subjective: * Chief Complaints: [...] enies. C ardiovascular: Pacemaker d enies. 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 W PW d enies. C [...] Generated for Jose Manuel duff/Karon/Maisha on: 1 05:19 PM EDT
--- OUTSIDE RECORDS SUMMARY | 2024-08-13 10:00 | XMS_ITS ---
Author Organization [facility] Address [address] [place] [address] Care Team Providers Care Director Of Public Health Name Role Phone Lisa Card Primary Care Provider Unavailab Sal Omalley Unavailable [phone] Anne Lin Unavailable [phone] Encounters Encounter Location Date Provider Diagnosis [address] [address] 08/13/2024 Anne Lin Plan Of Treatment Next Appt Details Provider Name:Sal Mace , 05/06/2025 02:30:00 PM, [address] [place] [address], [phone], Progress Notes * Yahaira JAINDOB: [birth year] (79 yo F)Acc No.[id number]:08/13/2024 Progress Notes Patient: Yahaira GOLDBERG Provider: Heber [...] 08/13/2024 Generated for Jose Manuel Arnold/Maisha on: 05:19 PM EDT
--- NOTE | 2025-02-25 14:07 | A.OFFVIS_ITS ---
Intake Visit Reasons: 3m follow up Carotid US 01/21/25 Intake Note: Patient presents for follow up carotid US performed on 01/21/25. Patient has no complaints. Accompanied by: Self / Same As Patient Allergies codeine Adverse Reaction (Intermediate, Verified 02/25/25 14:08) seizure oxycodone (From Percocet) Adverse Reaction (Intermediate, Verified 02/25/25 14:08) Nausea and Vomiting HPI HPI 3m follow up Carotid US 01/21/25: Details: The patient is an 79-year-old female presenting for follow-up evaluation regarding carotid disease. In September, the patient experienced an episode that led to a CAT scan, revealing carotid artery stenosis with 50-60% stenosis on the left side. A subsequent carotid ultrasound indicated no significant changes. The patient is on Eliquis, but due to medication interactions, a consultation for a Watchman device is planned. [facility] Medical History Schatzki's ring Rectal bleed IBS (irritable bowel syndrome) Allergies Urticaria Dyslipidemia Type 2 diabetes mellitus without complication, without long-term current use of insulin Hearing impairment History of adenomatous polyp of colon Lumbar back pain with radiculopathy affecting left lower extremity Obesity (BMI 30-39.9) Paget's disease of the bone Osteopenia GERD (gastroesophageal reflux disease) Impaired fasting glucose Anxiety and depression Essential hypertension Surgical History History of back surgery Hx of LASIK Hx of left cataract extraction Hx of tubal ligation H/O colonoscopy History of partial hysterectomy History of appendectomy History of cholecystectomy H/O breast surgery History of lumbar discectomy Social History Household Members: None Housing: House Are you a primary child care leader to a significant other at home: No Do you presently have visiting nurse or other home services: No Alcohol intake: never Patient Tobacco Use Status: Never used Tobacco e-Cigarette/Vaping Use: Never Used Second Hand Smoke Exposure: No Advance Directives Date on File: 11/02/22 service: No Current occupational status: retired Cognitive needs: No Hearing needs: No Vision needs: Yes (Reading glasses) Review of Systems Const All systems reviewed & are unremarkable except as noted in HPI and below Reports no additional complaints ENT Reports Normal hearing present Card Denies chest pain, Denies chest pain at rest, Denies chest pain with activity and Denies pedal edema Resp Denies cough GI Denies abdominal pain Musc Denies abnormal gait, Denies muscle cramps and Denies radiating pain into limb Skin/Breast Denies skin ulcer and Denies wounds Neuro Reports Normal hearing present and Denies abnormal gait Psych Reports no additional complaints Physical Exam Const General: cooperative, healthy appearing and comfortable Orientation/consciousness: oriented to person, oriented to place and oriented to time HEENT Head: Yes normal to inspection Neck Neck: Yes normal visual inspection Carotids: no bruits Chest Chest palpation & inspection: normal inspection of the chest Resp Effort & Inspection: normal respiratory effort and able to speak in complete sentences Auscultation: clear to auscultation bilaterally, no crackles, no rales, no rhonchi and no wheezes Cardio Rate: regular rate Rhythm: regular rhythm Heart sounds: S1 normal heart sound present and S2 normal heart sound present Bruits: no carotid bruits Peripheral pulses: Peripheral pulses 2+ throughout GI Inspection: Yes normal to inspection Skin Wounds: no wounds Hair: normal Neuro General: oriented to person, oriented to place and oriented to time Cranial nerves: Yes CN's II-XII intact bilaterally and Yes Normal hearing present Cognition (Neuro): normal cognition Motor exam (neuro): 5/5 motor strength present throughout Extrem Other: venous exam: No significant superficial varicosities or spider telangiectasias, minimal edema General: No clubbing, No cyanosis and No edema Psych Appearance: grossly normal Mental Status: mental status grossly normal Speech and movement: Normal speech and movement present Results Reviewed Results Reviewed: Carotid testing dated 01/21/2025 demonstrates right-sided 0-49 left side 50-79% stenosis Assessment & Plan Assessment & Plan (1) Carotid stenosis: Code(s): I65.29 - Occlusion and stenosis of unspecified carotid artery Category: Medical Qualifiers: Laterality: left Qualified Code(s): I65.22 - Occlusion and stenosis of left carotid artery Plan: In short patient has asymptomatic carotid disease. We have reviewed signs and symptoms of a stroke. We also discussed risk factor modification inclusive a healthy diet low in cholesterol. The patient will follow up with us with surve illance ultrasound of the carotids 1 year. Should there be any changes or signs or symptoms of a stroke we will be happy to see them back sooner. Thank you for allowing us to participate in this patient's care. If there are any questions or concerns please do not hesitate to contact us. Orders: Orders US carotid duplex BI 1 Year I65.23 - Occlusion and stenosis of bilateral carotid arteries Coding Level of Care Code Est Pt Level 4 (29659) Diagnoses Stenosis of left carotid artery I65.22 Laterality: left
--- OUTSIDE RECORDS SUMMARY | 2025-02-25 17:19 | XMS_ITS | Patient Health Record ---
Author Organization [facility] Physician Yoseph es Billing Info Address [address] [place] [address] [place] [address] Support Name Relationship Address Phone Tricia Real Emergency Contact [address] [place] [address] Yahaira Herring Guarantor Unknown [phone] Allergies Allergen (clinical drug ingredient) Drug/Non Drug [...] Problem Status W/U Status Risk Notes Problem [id number] Spondylolisthesi s, lumbar region (M43.16) Active confirmed Problem 513430072 Radiculopathy, lumbar region (M54.16) Active confirmed Problem 91754452 Spinal stenosis, 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) Active confirmed Problem 608447150 Lumbar radiculopathy (M54.16) Active confirmed Problem 752369945 Lumbar spondylos is (M47.816) Active confirmed Problem 728842159 Lumbar radiculopathy, chronic (M54.16) Active confirmed Problem 012935435 Spondylolisthesi s, unspecified spinal region (M43.10) Active confirmed Problem 14587723 Hypertension, unspecified type (I10) Active confirmed Problem 488776760 Gastroesophageal reflux disease, unspecified whether esophagitis present (K21.9) Active confirmed Plan Of Treatment Future Test Test Name Order Date MRI-LUMBAR SPINE; W/O CONTRAST MATL (721 48) 08/18/2020 XRAY- SPINE LUMBAR AP AND LAT/SPOT (7210 0)([facility]) 11/12/2020 CT- LUMBAR SPINE W/O CONTRAST (33422)([facility]) 01/12/2021 XRAY- SPINE LUMBAR AP AND LAT/SPOT (7210 0)([facility]) 03/16/2021 CT- LUMBAR [facility] W/O CONTRAST (62985[facility] 07/13/2021 Insurance Providers Payer Name Payer Address Payer Phone Subscriber Number Group Number Insured Name Patient Relationship to Insured Coverage Start Date Coverage End Date [place]ICARE [place] PART B [address] [place], [place] [id number] Yahaira Herring Self - patient is the insured [facility] PPO/[id number] [address] [place], [place] [id number] Yahaira Herring Self - patient is the insured Medical (General) History Medical History History ICD Code Lumbar radiculopathy Hypertension, unspecified type I10 Gastroesophageal reflux disease, unspeci fied whether esophagitis present K21.9 Spondylolisthesis, unspecified spinal re gion M43.10 Surgical History Surgery Date(Month/Year) hysterectomy gall bladder surgery appendectomy breast surgery Hospitalization History Reason Date(Month/Year) See Above
--- OUTSIDE RECORDS SUMMARY | 2025-02-25 17:19 | XMS_ITS | Patient Health Record ---
Author Organization [facility] Formerly [facility] Address [address] [place] [address] Care Team Providers Care Jig Maker Name Role Phone Stephie Lisa Primary Care Provider Unavailab Sal Omalley Unavailable [phone] Anne Lin Unavailable [phone] Allergies Allergen (clinical drug ingredient) Drug/Non Drug [...] Problem Acquired hammer toe of right foot (7807731818985 105) Other hammer toe(s) (acquired), right foot (M20.41) Active confirmed Problem Acquired hammer toe of left foot (6591193931613 103) Other hammer toe(s) (acquired), left foot (M20.42) Active confirmed Problem Type 2 diabetes mellitus with peripheral angiopathy (777503481) Type 2 diabetes mellitus with diabetic peripheral angiopathy without gangrene (E11.51) Active confirmed Q7(A), Q8(2B), Q9(1B,2C) Vital Signs Blood pressure diastolic 84 mm Hg 01/17/2025 Height 5 ft 1 in in 01/17/2025 Blood pressure systolic 123 mm Hg 01/17/2025 Weight 200 lbs 01/17/2025 BMI 37.79 kg/m2 01/17/2025 Procedures Procedure Date Ordered Date Performed Result Body Sit e 85687-KEDPOFR NAIL, 1-5 10/15/2024 N/A 85405-WXMD SKIN LESIONS, 2 TO 4 10/15/2024 N/A [id number] DYSTROPHIC NAILS ANY # 10/15/2024 N/A 50776-XGGQLOC NAIL, 1-5 01/17/2025 N/A 14572-EBMQ SKIN LESIONS, 2 TO 4 01/17/2025 N/A D8009-WUZXOUHX DYSTROPHIC NAILS ANY # 01/17/2025 N/A Encounters Encounter Location Date Provider Diagnosis [address] [address] 10/15/2024 Sal Mace Type 2 diabetes mellitus with diabetic peripheral angiopathy without gangrene E11.51 ; Other hammer toe(s) (acquired), right foot M20.41 ; Tinea unguium B35.1 ; Pain in right toe(s) M79.674 ; Pain in left toe(s) M79.675 and Other hammer toe(s) (acquired), left foot M20.[address] [address] 01/17/2025 Sal Mace Type 2 diabetes mellitus with diabetic peripheral angiopathy without gangrene E11.51 ; Tinea unguium B35.1 ; Pain in right toe(s) M79.674 and Pain in left toe(s) M79.[address] [address] 07/24/2024 Anne Lin [address] [address] 07/31/2024 Anne Lin [address] [address] 09/26/2024 Anne Lin Assessments Encounter Date Diagnosis [...] Treatment Pending Test Test Name Order Date 22734-JKLIRZY NAIL, 6 OR MORE 06/14/2012 50536-KPWXJCV NAIL, 1-02/25/2013 01672-SKMGQTE NAIL, -10/15/2024 28496-CIXUKVK NAIL, 1-08/29/2012 20170-JQJZAJG NAIL, -11/28/2012 87908-OUFNBUV NAIL, 1-01/17/2025 01446-Bzelphcd Plate 11/28/2012 66298-Bfpvkink Plate 02/25/2013 91282-Ttcehtyx Plate 06/14/2012 02563-Bujgtzot Plate 08/29/2012 73849-XSRY SKIN LESIONS, 2 TO 4 01/18/20 25 33034-LKLW SKIN LESIONS, 2 TO 4 10/16/19 25 D1029-XOGXTFLI DYSTROPHIC NAILS ANY # K9621-EFHNZHJO DYSTROPHIC NAILS ANY # Next Appt Details Provider Name:Sal Mace , 05/06/2025 02:30:00 PM, [address] [place] [address], [phone], Insurance Providers Payer Name Payer Address Payer Phone Subscriber Number Group Number Insured Name Patient Relationship to Insured Coverage Start Date Coverage End Date Medicare National Govt [facility] [address] [place] [address] [id number] Yahaira Herring Self - patient is the insured 0 [employer] [address] [place] [address] [phone] [id number] Yahaira Herring Self - patient is the insured 0 Medical (General) History Medical History History ICD Code mumps measles high blood pressure chicken pox Pagets disease of bones arthritis Cataracts Menieres disease Reflux ( GERD) Sciatica Joint implants/screws Surgical History Surgery Date(Month/Year) nueroma left foot CABG surgery Back surgery 08/13/2024 Hospitalization History Reason Date(Month/Year) Bleeding from rectum 12/13 [place] [facility] [place] [place]/02/2024
--- OUTSIDE RECORDS SUMMARY | 2025-02-25 17:19 | XMS_ITS | Clinical Summary ---
Author Organization [facility] Address [address] [place] [address] Care Team Providers Care Marketing Mgr Name Role Phone Unavailable Primary Care Provider [...] patient's age to complete this topic Insurance [facility] MED CARE MEDICARE
--- OUTSIDE RECORDS SUMMARY | 2025-02-25 17:20 | XMS_ITS | Patient Health Record ---
Author Organization [facility] Address [address] [place] [address] [address] [place] [address] Care Team Providers Care Thread Grinder Name Role Phone Karyna Clarke Unavailable [phone] Reason For Referral No Information Medications Medication SIG (Take, Route, Frequency, Duration) Notes Start Date End Date Status hydroCHLOROthiazide 1 ORAL daily; Duration: -3 [facility] 09/24/2012 Active Citalopram Hydrobromide 20MG ORAL; Duration: -3 [facility] Active CeleBREX 200MG ORAL; Duration: -3 [facility] 10/15/2013 Active Vitamin E 200UNITS 1 ORAL daily; Duration: -3 [facility] 09/24/2012 Active Atenolol 25MG 1 ORAL DAILY; Duration: -3 [facility] 09/24/2012 Active Calcium 1 ORAL daily; Duration: -3 [facility] 09/24/2012 Active Vitamin D3 1000 IU ORAL daily; Duration : -3 [facility] 09/24/2012 Active [place] Jelly 1 ORAL daily; Duration: -3 [facility] 09/24/2012 Active Problems Problem Type SNOMED Code ICD Code Onset Dates Problem Status W/U Status Risk Notes Problem Menopausal symptom (68564821) Symptomatic menopausal or female climacteric states (627.2) Active confirmed Major Problem Gynecological examination normal (882683352145785) Routine gynecological examination (V72.31) Active confirmed Diag Problem Exercises teaching, guidance, and counseling (476304822) Exercise counseling (V65.41) Active confirmed Diag Problem Screening for malignant neoplasm of colon (090658562) Special screening for malignant neoplasms, colon (V76.51) Active confirmed Major Plan Of Treatment No Information Insurance Providers Payer Name Payer Address Payer Phone Subscriber Number Group Number Insured Name Patient Relationship to Insured Coverage Start Date Coverage End Date MEDICARE [address] [place], [place] [id number] [phone] [id number] NATALY JAIN Self - patient is the insured 1 [employer] [address] [place] [address] [phone] [id number] SILVESTRE JAINRIETTA Self - patient is the insured 1
== END 2025-02-25 14:54 | disposition home or self-care (01) ==
LOC: HO.HVS 14:05
PROVIDERS: PCP Internal Medicine; Visit Provider Surgery Vascular Surgery
DX: I65.22 Occlusion and stenosis of left carotid artery (principal)
CPT/HCPCS: 99214

== ENCOUNTER → 2025-02-25 14:04 | Outpatient (BNVA) | payer MEDICARE, SELFPAY | PROVIDERS: PCP Internal Medicine; Visit Provider Surgery Vascular Surgery | DX: I65.22 Occlusion and stenosis of left carotid artery (principal); I10 Essential (primary) hypertension; E78.5 Hyperlipidemia, unspecified; Z79.01 Long term (current) use of anticoagulants | CPT/HCPCS: 99212 ==

== ENCOUNTER 2025-03-03 16:01 | Emergency (ER) | payer MEDICARE, SELFPAY ==
--- OUTSIDE RECORDS SUMMARY | 2024-07-24 10:00 | XMS_ITS ---
Author Organization [facility] [place] Address [address] [place] [address] Care Team Providers Care Mailer Apprentice Name Role Phone Lisa Card Primary Care Provider Unavailab Sal Omalley Unavailable [phone] Anne Lin Unavailable [phone] Allergies Allergen (clinical drug ingredient) Drug/Non Drug [...] Negative Encounters Encounter Location Date Provider Diagnosis [facility] [place] [address] [place] [address] 07/24/2024 Anne Lin Plan Of Treatment Next Appt Details Provider Name:Sal Mace , 05/06/2025 02:30:00 PM, [address] [place], [address], Progress Notes * Yahaira JAINDOB: [birth year] (79 yo F)Acc No.[id number]:07/24/2024 Progress Notes Patient: Yahaira GOLDBERG Provider: Heber Lin DPM :1945 A ge:78 Y S ex:Female Date:07/24/2024 Address:[address] [place] [address], [place], [place]-[id number] Pcp:Lisa Card Subjective: * Chief Complaints: [...] enies. C ardiovascular: Pacemaker d enies. 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 W PW d enies. C [...] 07/24/2024 Generated for Jose Manuel duff/Karon/Maisha on: 1 08:45 PM EDT
--- OUTSIDE RECORDS SUMMARY | 2024-08-13 10:00 | XMS_ITS ---
Author Organization [facility] Address [address] [place] [address] Care Team Providers Care Efficiency Analyst Name Role Phone Lisa Card Primary Care Provider Unavailab aSl Omalley Unavailable [phone] Anne Lin Unavailable [phone] Encounters Encounter Location Date Provider Diagnosis [address] [address] 08/13/2024 Anne Lin Plan Of Treatment Next Appt Details Provider Name:Sal Mace , 05/06/2025 02:30:00 PM, [address] [place] [address], [phone], Progress Notes * Yahaira JAINDOB: [birth year] (79 yo F)Acc No.[id number]:08/13/2024 Progress Notes Patient: Yahaira GOLDBERG Provider: Heber [...] 08/13/2024 Generated for Jose Manuel Arnold/Maisha on: 08:45 PM EDT
--- NOTE | ~2025-03-03 | XR_ITS ---
CLINICAL HISTORY: pain, injury 4 view right knee Comparison: None provided Findings: Moderate osteoarthritis of the right knee. No acute displaced fracture or dislocation. Rcxxyext-dj-qewvn effusion present with likely small loose bodies. Additional calcifications include imaged menisci by radiographs. Remodeling of the proximal fibula appears old/chronic. Vascular calcifications noted. IMPRESSION: 1. Moderate osteoarthritis of the right knee. 2. No acute displaced fracture or dislocation. 3. Effusion present. This document has been electronically signed by: Gael Remhan MD on 03/03/2025 23:20:47
--- NOTE | ~2025-03-03 | US_ITS ---
CLINICAL HISTORY: Swelling Pain Venous duplex ultrasound right lower extremity Comparison: None provided Findings: The visualized deep veins are fully compressible with normal Doppler color flow and spectral tracings. Mild fluid in the imaged popliteal region nonspecific and may be related to posterior cysts and/or Hill's cysts. Accentuated of the effusion also considered by ultrasound. IMPRESSION: 1. Negative for right lower extremity deep vein thrombosis. 2. Likely small posterior cysts of the imaged right knee. Please consider outpatient MRI of the knee, if not already achieved. This document has been electronically signed by: Gael Rehman MD on 03/03/2025 23:19:29
[2025-03-03 16:03] VITALS: BP 165/71; PULSE 70; RESP 16; TEMP 36.3; O2SAT 95; BMI 37.6
--- NOTE | 2025-03-03 16:04 | ED.GENADULT ---
HPI - General Adult General Chief complaint: Extremity Problem Stated complaint: rt leg/knee swollen for a week Time Seen by Provider: 03/03/25 20:03 Source: patient Mode of arrival: ambulatory Limitations: no limitations History of Present Illness ED Provider: Avery MORELAND HPI narrative: The patient is an 79-year-old female with a history of atrial fibrillation on Eliquis, embolic CVA, right foot drop, diabetes, hyperlipidemia, hypertension, GERD, and spinal stenosis status post 2 lumbar fusions, most recent in July of this year, presenting to the ED for evaluation of right knee pain which began on 02/24. The patient reports pain began atraumatically upon waking that morning, denies pain when going to bed the evening before, denies any recent fall or blunt trauma, denies any significant change in baseline activity, patient uses a walker at baseline due to chronic footdrop. The patient does report that on 02/21 she began wearing new orthotic shoes, patient questions if this is contributing to her pain. The patient reports over the past week she has been experiencing increasing pain as well as swelling of the anterior inferior right knee without overlying erythema or associated fever/chills. The patient reports she has been compliant with her Eliquis. The patient reports she has been attempting Tylenol and lidocaine patches, as well as wearing a compression knee brace, without significant relief. Related Data Home Medications ?Medication ?Instructions ?Recorded ?Confirmed alpha lipoic acid 100 mg capsule 100 mg PO DAILY 11/02/22 02/21/25 calcium citrate 630 mg PO DAILY 11/02/22 02/21/25 cholecalciferol (vitamin D3) 25 25 mcg PO DAILY 11/02/22 02/21/25 mcg (1,000 unit) capsule multivitamin 1 tab PO DAILY 11/02/22 02/21/25 Previous Rx's ?Medication ?Instructions ?Recorded citalopram 20 mg tablet 20 mg PO BEDTIME #90 tabs 10/15/24 rosuvastatin 5 mg tablet 5 mg PO DAILY #30 tabs 10/24/24 cetirizine 10 mg tablet (All Day 10 mg PO DAILY #90 tabs 10/25/24 Allergy (cetirizine)) empagliflozin 10 mg tablet 10 mg PO DAILY #90 tabs 10/25/24 (Jardiance) metoprolol tartrate 50 mg tablet 75 mg (1.5 x 50 mg) PO BID 30 days 11/12/24 #90 tabs ferrous sulfate 220 mg (44 mg 220 mg (5 mL) PO DAILY #473 mL 11/26/24 iron)/5 mL oral solution ascorbate calcium (vitamin C) 500 500 mg PO DAILY #90 tabs 11/27/24 mg tablet blood-glucose meter (Freestyle #1 ea 11/27/24 InsuLinx meter) lancets 28 gauge (FreeStyle #100 ea 11/27/24 Lancets) apixaban 5 mg tablet (Eliquis) 5 mg PO BID #180 tabs 01/15/25 methylcellulose (laxative) 500 mg 500 mg PO DAILY #90 tabs 02/12/25 tablet (Citrucel) pantoprazole 20 mg tablet,delayed 20 mg PO DAILY@0630 90 days #90 02/12/25 release tabs Allergies Allergy/AdvReac Type Severity Reaction Status Date / Time codeine AdvReac Intermediate seizure Verified 03/03/25 16:05 oxycodone (From Percocet) AdvReac Intermediate Nausea and Verified 03/03/25 16:05 Vomiting Review of Systems Review of Systems: Yes all other systems are reviewed and are negative [facility] Past Medical History Medical History Schatzki's ring Rectal bleed IBS (irritable bowel syndrome) Allergies Urticaria Dyslipidemia Type 2 diabetes mellitus without complication, without long-term current use of insulin Hearing impairment History of adenomatous polyp of colon Lumbar back pain with radiculopathy affecting left lower extremity Obesity (BMI 30-39.9) Paget's disease of the bone Osteopenia GERD (gastroesophageal reflux disease) Impaired fasting glucose Anxiety and depression Essential hypertension Surgical History History of back surgery Hx of LASIK Hx of left cataract extraction Hx of tubal ligation H/O colonoscopy History of partial hysterectomy History of appendectomy History of cholecystectomy H/O breast surgery History of lumbar discectomy Social History Social History Household Members: None Housing: House Are you a primary healthcare science specialist to a significant other at home: No Do you presently have visiting nurse or other home services: No Alcohol intake: never Patient Tobacco Use Status: Never used Tobacco Smoked in Last 30 Days: No e-Cigarette/Vaping Use: Never Used Second Hand Smoke Exposure: No Use of substances other than those prescribed or required for medical reasons: No Advance Directives: Yes Advance Directives on File: Yes Advance Directives Date on File: 11/02/22 Do you have a plan to hurt others: No Plan service: No Current occupational status: retired Cognitive needs: No Hearing needs: No Vision needs: Yes (Reading glasses) Physical Exam ED Vital Signs: Vital Signs - 24 hr 03/03/25 16:03 03/03/25 20:07 Temperature 97.4 F 97.8 F Pulse Rate 70 66 Respiratory Rate 16 18 Blood Pressure 165/71 H 166/75 H Pulse Oximetry 95 93 Oxygen Delivery Method Room Air Room Air BMI result Body Mass Index 37.6 CONSTITUTIONAL: The patient appears non-toxic, well nourished and in no acute distress. Vital signs as documented. HEAD: Atraumatic, normocephalic. EYES: EOMs grossly intact, pupils equal, conjunctiva clear, no exudate. ENT: Nares patent, no discharge. Airway patent, no audible stridor, visible mucosa is pink and moist without noted lesions. NECK: trachea is midline, no obvious masses or gross abnormalities. CHEST: Symmetric movement, normal appearance. LUNGS: Non-labored work of breathing. CARDIAC: No evidence of hypoperfusion. ABDOMEN: Nondistended, no obvious injury. : Deferred. EXTREMITIES: Right knee demonstrates mild swelling of the area immediately inferior and medial to the patella, no patellar tenderness or crepitus, no other bony tenderness. Moderately painful but otherwise full ROM, extensor mechanism is intact. Distal CSM is intact, 2+ DP/PT pulses bilaterally. There is no overlying erythema. Moves all other extremities spontaneously without reported pain. No obvious injury or deformity noted. NEURO: Alert and oriented x3, CN II-XII appear grossly intact. Cerebellar Functioning grossly intact. Speech clear and appropriate. SKIN: Warm, dry, color appropriate. No rashes or lesions noted. Course Course Course Narrative: Rapid medical examination performed in triage by Gabriela Worthy PA-C. Patient is an 79 year old assigned female at presenting to the emergency department with right knee pain. Patient states that she has been having right sided knee pain and swelling. Detailed physical exam and review of systems are deferred to the filling room operator. Imaging and labs ordered. Patient placed back in the waiting room pending room availability and results. Medications Administered Discontinued Medications Generic Name Dose Route Start Last Admin Trade Name Efrain PRN Reason Stop Dose Admin Acetaminophen 975 mg 03/03/25 21:43 03/03/25 21:49 Acetaminophen 325 Mg Tablet PO 03/03/25 21:44 975 mg ONCE ONE Administration Medical Decision Making Medical Decision Making [facility] Narrative: 8:25 PM 03/03/2025 (Cassidy MORELAND): The patient is an 79-year-old female with a history of atrial fibrillation on Eliquis, embolic CVA, right foot drop, diabetes, hyperlipidemia, hypertension, GERD, and spinal stenosis status post 2 lumbar fusions, most recent in July of this year, presenting to the ED for evaluation of right knee pain which began on 02/24. The patient reports pain began atraumatically upon waking that morning, denies pain when going to bed the evening before, denies any recent fall or blunt trauma, denies any significant change in baseline activity, patient uses a walker at baseline due to chronic footdrop. The patient does report that on 02/21 she began wearing new orthotic shoes, patient questions if this is contributing to her pain. The patient reports over the past week she has been experiencing increasing pain as well as swelling of the anterior inferior right knee without overlying erythema or associated fever/chills. The patient reports she has been compliant with her Eliquis. The patient reports she has been attempting Tylenol and lidocaine patches, as well as wearing a compression knee brace, without significant relief. On exam the patient is right knee demonstrates mild swelling of the area immediately inferior and medial to the patella, no patellar tenderness, no other bony tenderness. Distal CSM is intact, 2+ DP/PT pulses bilaterally. There was no overlying erythema. The patient's laboratory evaluation shows no leukocytosis, anemia, electrolyte abnormality, or ADDISON. Patient was sent for an x-ray of the right knee, interpretation is pending. We will treat the patient with additional dose of Tylenol and although unlikely based on presentation of symptoms, we will obtain ultrasound to rule out coagulopathic process or Hill's cyst. Following ultrasound patient will have lidocaine patch applied. Pending unremarkable workup in the ED patient will likely be discharged to follow up outpatient with Orthopedics. 11:37 PM 03/03/2025 (Cassidy MORELAND): The patient's x-ray has been interpreted by Radiology and is negative for acute fracture, there was a joint effusion noted. Patient's ultrasound is negative for DVT, there are popliteal cyst noted. The patient is requesting discharge. We will treat with tylenol, topical anelgesics, and discharge the patient to follow up with Orthopedics. Admission/Observation Consideration of admission/observation: Escalation of care including admission/observation considered Lab Data MDM Lab Attestation statement: I reviewed the patient's lab results. 03/03/25 16:24 03/03/25 16:24 Labs: Lab Results 03/03/25 Range/Units 16:24 WBC 8.7 (4.8-10.8) X10*3/uL RBC 5.51 H (4.20-5.50) X10*6/uL Hgb 14.6 (12.0-16.0) g/dl Hct 46.5 (37.0-47.0) % MCV 84.4 (80.0-98.0) fL MCH 26.5 L (27.0-33.0) pg MCHC 31.4 (31.0-35.0) g/dl RDW 16.2 H (11.0-16.0) % Plt Count 276 (160-400) X10*3/uL MPV 10.3 (9.4-12.3) fL Immature Gran % (Auto) 0.3 (0.0-0.4) % Neut % (Auto) 56.6 (45-73) % Lymph % (Auto) 31.5 (20-40) % Clark % (Auto) 8.9 (2-11) % Eos % (Auto) 2.1 (0-4) % Baso % (Auto) 0.6 (0-2) % Lymph # (Auto) 2.7 (1.2-4.9) X10*3/uL Clark # (Auto) 0.8 (0.1-1.2) X10*3/uL Eos # (Auto) 0.2 (0.0-0.4) X10*3/uL Baso # (Auto) 0.1 (0.0-0.2) X10*3/uL Abs Immat Gran (auto) 0.03 (0.00-0.03) X10*3/uL Absolute Neuts (auto) 4.9 (2.0-8.3) x10*3/uL Absolute Nucleated RBC 0.000 (0.0-0.012) X10*3/uL Nucleated RBC % (auto) 0.0 (0.0-0.2) /100WBC Sodium 143 (135-145) mmol/L Potassium 4.5 (3.3-5.1) mmol/L Chloride 111 H (96-108) mmol/L Carbon Dioxide 25 (22-29) mmol/L Anion Gap 12 (12-20) BUN 14 (9-16) mg/dL Creatinine 0.79 (0.5-1.4) mg/dL Estim Creat Clear Calc 58.1 Estimated GFR > 60 Random Glucose 137 H (60-115) mg/dL Calcium 9.3 (8.4-10.2) mg/dL Total Bilirubin 0.3 (0.0-1.0) mg/dL AST 21 (5-31) U/L ALT 19 (0-31) U/L Alkaline Phosphatase 81 (39-117) U/L NT-Pro-B Natriuret Pep 506.3 H (<300) pg/mL Total Protein 7.1 (6.5-8.0) g/dL Albumin 4.2 (3.5-5.0) g/dL Radiology Impression Discussion of test interpretation with radiology: I have reviewed the radiologist's reading. Radiologist Impression: CLINICAL HISTORY: pain, injury 4 view right knee Comparison: None provided Findings: Moderate osteoarthritis of the right knee. No acute displaced fracture or dislocation. Nvwmtawd-wu-ifjpl effusion present with likely small loose bodies. Additional calcifications include imaged menisci by radiographs. Remodeling of the proximal fibula appears old/chronic. Vascular calcifications noted. IMPRESSION: 1. Moderate osteoarthritis of the right knee. 2. No acute displaced fracture or dislocation. 3. Effusion present. This document has been electronically signed by: Gael Rehman MD on 03/03/2025 23:20:47 Venous duplex ultrasound right lower extremity Comparison: None provided Findings: The visualized deep veins are fully compressible with normal Doppler color flow and spectral tracings. Mild fluid in the imaged popliteal region nonspecific and may be related to posterior cysts and/or Hill's cysts. Accentuated of the effusion also considered by ultrasound. IMPRESSION: 1. Negative for right lower extremity deep vein thrombosis. 2. Likely small posterior cysts of the imaged right knee. Please consider outpatient MRI of the knee, if not already achieved. This document has been electronically signed by: Gael Rehman MD on 03/03/2025 23:19:29 Discharge Plan Discharge Clinical Impression: Effusion of knee joint right Acute knee pain Qualifiers: Laterality: right Qualified Code(s): M25.561 - Pain in right knee Patient Disposition: Home, Self-Care Instructions: Knee Pain (ED), Swollen Joint (ED) Additional Instructions: Thank you for choosing [facility] Emergency Department for your care today. Thankfully your x-ray today shows no evidence of an acute fracture, and your ultrasound showed no evidence of a blood clot. At this time there is no indication for admission to the hospital or continued ED observation, and it is safe to discharge you home. Your x-ray does show significant arthritis and evidence of a knee joint effusion, and your ultrasound showed some small cysts in the back of your knee. It is unclear if these cysts, or your new orthotic footwear are contributing to your pain and effusion. At this time there is not a large enough effusion to require drainage in the emergency department. Please follow up with the orthopedic office for additional evaluation and management of your pain. You may take Tylenol 1000mg every 6 hours as needed for any additional pain. Please rest the injured area, and apply ice for 20 minutes every hour. We have treated you with a lidocaine patch, if you find this provides you significant relief additional patches can be purchased at any local pharmacy without a prescription. Please also follow up with your primary care physician for re-evaluation, additional management of your symptoms, and continued preventative care. If you do not have a primary care physician, please call the [facility] at [phone] to establish a new primary care physician. While waiting to establish your new primary care physician, you can call our Walk[facility] at [phone] for non-emergency needs. Please return to the emergency department if you develop a severe or sudden change in your symptoms, a fever over 100.4 that does not improve with Tylenol or Ibuprofen, recurrent vomiting, or any other new or worsening symptoms or concerns. Prescriptions: No Action citalopram 20 mg tablet 20 mg PO BEDTIME Qty: 90 1RF ferrous sulfate 220 mg (44 mg iron)/5 mL solution 220 mg PO DAILY Qty: 473 0RF Eliquis 5 mg tablet 5 mg PO BID Qty: 180 3RF alpha lipoic acid 100 mg capsule 100 mg PO DAILY calcium citrate 250 mg calcium tablet 630 mg PO DAILY cholecalciferol (vitamin D3) 25 mcg (1,000 unit) capsule 25 mcg PO DAILY multivitamin Tablet 1 tab PO DAILY Jardiance 10 mg tablet 10 mg PO DAILY Qty: 90 2RF cetirizine [All Day Allergy (cetirizine)] 10 mg tablet 10 mg PO DAILY Qty: 90 0RF ascorbate calcium (vitamin C) 500 mg tablet 500 mg PO DAILY Qty: 90 0RF (DME) blood-glucose meter [Freestyle InsuLinx] [facility] See Rx Instructions .Route Qty: 1 0RF Rx Instructions: As directed (DME) lancets [FreeStyle Lancets] [facility] See Rx Instructions .Route Qty: 100 1RF Rx Instructions: As directed; TID to check blood sugars pantoprazole 20 mg tablet,delayed release (DR/EC) 20 mg PO DAILY@0630 90 Days Qty: 90 2RF Citrucel 500 mg tablet 500 mg PO DAILY Qty: 90 3RF rosuvastatin 5 mg tablet 5 mg PO DAILY Qty: 30 3RF Rx Instructions: Change from atorvastatin metoprolol tartrate 50 mg tablet 75 mg PO BID 30 Days Qty: 90 3RF Rx Instructions: stop Labetolol - start Metoprolol Referrals: Po,Felipa Oreilly MD [Primary Care Provider, Internal Medicine] Clinical Impression: Effusion of knee joint right; Acute knee pain [facility] [Provider Group] Clinical Impression: Effusion of knee joint right; Acute knee pain Print Language: Indonesian
[2025-03-03 16:29] LABS: MANUAL DIFF FLAG NO
[2025-03-03 16:33] LABS: Hematocrit 46.5 % (37.0-47.0); Hemoglobin 14.6 g/dl (12.0-16.0); Imm Gran Abs Auto 0.03 X10*3/uL (0.00-0.03); Imm Gran Pct Auto 0.3 % (0.0-0.4); Lymphocytes Absolute Auto 2.7 X10*3/uL (1.2-4.9); Mean Corpuscular HGB Conc 31.4 g/dl (31.0-35.0); Mean Corpuscular Hemoglobin 26.5 pg (27.0-33.0); Mean Corpuscular Volume 84.4 fL (80.0-98.0); NRBC Abs Auto 0.000 X10*3/uL (0.0-0.012); NRBC Pct Auto 0.0 /100WBC (0.0-0.2); Platelet Count 276 X10*3/uL (160-400); Red Blood Count 5.51 X10*6/uL (4.20-5.50); White Blood Count 8.7 X10*3/uL (4.8-10.8)
[2025-03-03 16:43] LABS: Alanine Aminotransferase 19 U/L (0-31); Albumin Level 4.2 g/dL (3.5-5.0); Alkaline Phosphatase 81 U/L (39-117); Anion Gap 12 (12-20); Aspartate Amino Transferase 21 U/L (5-31); Blood Urea Nitrogen 14 mg/dL (9-16); Calcium 9.3 mg/dL (8.4-10.2); Carbon Dioxide 25 mmol/L (22-29); Chloride 111 mmol/L (96-108); Creatinine Clr Calc Pharmacy 58.1; Estimated Glomerular Filt Rate > 60; Potassium 4.5 mmol/L (3.3-5.1); Sodium 143 mmol/L (135-145); Total Protein 7.1 g/dL (6.5-8.0)
[2025-03-03 16:49] LABS: NT Pro B Type Natriuretic Pept 506.3 pg/mL (<300)
[2025-03-03 20:07] VITALS: BP 166/75; PULSE 66; RESP 18; TEMP 36.6; O2SAT 93
--- OUTSIDE RECORDS SUMMARY | 2025-03-03 20:45 | XMS_ITS | Patient Health Record ---
[facility] Organization [facility] Address [address] [place] [address] Care Team Providers Care Edger Technician Name Role Phone Stephie Lisa Primary Care Provider Unavailab Sal Omalley Unavailable [phone] Anne Lin Unavailable [phone] Allergies Allergen (clinical drug ingredient) Drug/Non Drug [...] Problem Acquired hammer toe of right foot (9848754331414 105) Other hammer toe(s) (acquired), right foot (M20.41) Active confirmed Problem Acquired hammer toe of left foot (6200934653852 103) Other hammer toe(s) (acquired), left foot (M20.42) Active confirmed Problem Type 2 diabetes mellitus with peripheral angiopathy (844120696) Type 2 diabetes mellitus with diabetic peripheral angiopathy without gangrene (E11.51) Active confirmed Q7(A), Q8(2B), Q9(1B,2C) Vital Signs Blood pressure diastolic 84 mm Hg 01/17/2025 Height 5 ft 1 in in 01/17/2025 Blood pressure systolic 123 mm Hg 01/17/2025 Weight 200 lbs 01/17/2025 BMI 37.79 kg/m2 01/17/2025 Procedures Procedure Date Ordered Date Performed Result Body Sit e 57979-FWGZJJS NAIL, 1-5 10/15/2024 N/A 27984-LWKP SKIN LESIONS, 2 TO 4 10/15/2024 N/A X2644-GMQMMSME DYSTROPHIC NAILS ANY # 10/15/2024 N/A 87506-IUIQLPX NAIL, 1-5 01/17/2025 N/A 93689-SIIM SKIN LESIONS, 2 TO 4 01/17/2025 N/A K3656-THREEFZV DYSTROPHIC NAILS ANY # 01/17/2025 N/A Encounters Encounter Location Date Provider Diagnosis [address] [address] 10/15/2024 Sal Mace Type 2 diabetes mellitus with diabetic peripheral angiopathy without gangrene E11.51 ; Other hammer toe(s) (acquired), right foot M20.41 ; Tinea unguium B35.1 ; Pain in right toe(s) M79.674 ; Pain in left toe(s) M79.675 and Other hammer toe(s) (acquired), left foot M20.[address] [address] 01/17/2025 Sal Mace Type 2 diabetes mellitus with diabetic peripheral angiopathy without gangrene E11.51 ; Tinea unguium B35.1 ; Pain in right toe(s) M79.674 and Pain in left toe(s) M79.[address] [address] 07/24/2024 Anne Lin [address] [address] 07/31/2024 Anne Lin [address] [address] 09/26/2024 Anne Lin Assessments Encounter Date Diagnosis [...] Treatment Pending Test Test Name Order Date 86736-WWYLAEX NAIL, 6 OR MORE 06/14/2012 65774-EHJEZGJ NAIL, 1-02/25/2013 49901-WXXKETP NAIL, -10/15/2024 93054-AEOSYAW NAIL, 1-08/29/2012 80117-QGHKCJT NAIL, -11/28/2012 47259-KLPNXWL NAIL, 1-01/17/2025 28375-Abmxmftg Plate 11/28/2012 54692-Ncqqxbvu Plate 02/25/2013 64505-Wwkwvsrc Plate 06/14/2012 01430-Sifxccpm Plate 08/29/2012 63668-AGDT SKIN LESIONS, 2 TO 4 01/18/20 25 60466-IRAW SKIN LESIONS, 2 TO 4 10/16/19 25 G4099-RMPAAVPY DYSTROPHIC NAILS ANY # N7679-LQSGDVNA DYSTROPHIC NAILS ANY # Next Appt Details Provider Name:Sal Mace , 05/06/2025 02:30:00 PM, [address] [place] [address], [phone], Insurance Providers Payer Name Payer Address Payer Phone Subscriber Number Group Number Insured Name Patient Relationship to Insured Coverage Start Date Coverage End Date Medicare National Govt [facility] [address] [place] [address] [id number] Yahaira Herring Self - patient is the insured 0 [employer] [address] [place] [address] [phone] [id number] Yahaira Herring Self - patient is the insured 0 Medical (General) History Medical History History ICD Code mumps measles high blood pressure chicken pox Pagets disease of bones arthritis Cataracts Menieres disease Reflux ( GERD) Sciatica Joint implants/screws Surgical History Surgery Date(Month/Year) nueroma left foot CABG surgery Back surgery 08/13/2024 Hospitalization History Reason Date(Month/Year) Bleeding from rectum 12/13 [facility]IA- [facility] [place] 10/02/2024
--- OUTSIDE RECORDS SUMMARY | 2025-03-03 20:45 | XMS_ITS | Patient Health Record ---
Author Organization [facility] Physician Yoseph es Billing Info Address [address] [place] [address] [place] [address] Support Name Relationship Address Phone Tricia Real Emergency Contact [address] [place] [address] Yahaira Herring Guarantor [...] Problem Status W/U Status Risk Notes Problem [id number] Spondylolisthesi s, lumbar region (M43.16) Active confirmed Problem 016216745 Radiculopathy, lumbar region (M54.16) Active confirmed Problem 74836546 Spinal stenosis, 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) Active confirmed Problem 503457973 Lumbar radiculopathy (M54.16) Active confirmed Problem 810840382 Lumbar spondylos is (M47.816) Active confirmed Problem 410351802 Lumbar radiculopathy, chronic (M54.16) Active confirmed Problem 073892805 Spondylolisthesi s, unspecified spinal region (M43.10) Active confirmed Problem 17597993 Hypertension, unspecified type (I10) Active confirmed Problem 669462417 Gastroesophageal reflux disease, unspecified whether esophagitis present (K21.9) Active confirmed Plan Of Treatment Future Test Test Name Order Date MRI-LUMBAR SPINE; W/O CONTRAST MATL (721 48) 08/18/2020 XRAY- SPINE LUMBAR AP AND LAT/SPOT (7210 0)([facility]) 11/12/2020 CT- LUMBAR SPINE W/O CONTRAST (98526)([facility]) 01/12/2021 XRAY- SPINE LUMBAR AP AND LAT/SPOT (7210 0)([facility]) 03/16/2021 CT- [facility] W[facility]O [facility]AST (77808[facility] 07/13/2021 Insurance Providers Payer Name Payer Address Payer Phone Subscriber Number Group Number Insured Name Patient Relationship to Insured Coverage Start Date Coverage End Date MEDICARE [place] PART B [address] [place], [place] [id number] Yahaira Herring Self - patient is the insured [facility] PPO/[id number] [address] [place], [place] [id number] Yahaira Herring Self - patient is the insured Medical (General) History Medical History History ICD Code Lumbar radiculopathy Hypertension, unspecified type I10 Gastroesophageal reflux disease, unspeci fied whether esophagitis present K21.9 Spondylolisthesis, unspecified spinal re gion M43.10 Surgical History Surgery Date(Month/Year) hysterectomy gall bladder surgery appendectomy breast surgery Hospitalization History Reason Date(Month/Year) See Above
--- OUTSIDE RECORDS SUMMARY | 2025-03-03 20:45 | XMS_ITS | Clinical Summary ---
Author Organization [employer] Address [address] [place] [address] Care Team Providers Care Cementer Hand Name Role Phone Unavailable Primary Care Provider [...] patient's age to complete this topic Insurance MEDICARE [facility] MEDEX MEDICARE SUPPLEMENT
--- OUTSIDE RECORDS SUMMARY | 2025-03-03 20:45 | XMS_ITS | Patient Health Record ---
Author Organization [employer] Address [address] [place] [address] [address] [place] [address] Care Team Providers Care Sweat Band Sewer Name Role Phone Karyna Clarke Unavailable [phone] Reason For Referral No Information Medications Medication SIG (Take, Route, Frequency, Duration) Notes Start Date End Date Status hydroCHLOROthiazide 1 ORAL daily; Duration: -3 [facility] 09/24/2012 Active Citalopram Hydrobromide 20MG ORAL; Duration: -3 [facility] [place] CeleBREX 200MG ORAL; Duration: -3 [facility] [place] 10/15/2013 Active Vitamin E 200UNITS 1 ORAL daily; Duration: -3 [facility] [place] [facility] 09/24/2012 Active Atenolol 25MG 1 ORAL DAILY; Duration: -3 [facility] [place] [facility] 09/24/2012 Active Calcium 1 ORAL daily; Duration: -3 [facility] [place] 09/24/2012 Active Vitamin D3 1000 IU ORAL daily; Duration : -3 [facility] [place] 09/24/2012 Active Olga Jelly 1 ORAL daily; Duration: -3 [facility] [place] 09/24/2012 Active Problems Problem Type SNOMED Code ICD Code Onset Dates Problem Status W/U Status Risk Notes Problem Menopausal symptom (38108155) Symptomatic menopausal or female climacteric states (627.2) Active confirmed Major Problem Gynecological examination normal (843225143485988) Routine gynecological examination (V72.31) Active confirmed Diag Problem Exercises teaching, guidance, and counseling (409516272) Exercise counseling (V65.41) Active confirmed Diag Problem Screening for malignant neoplasm of colon (502867108) Special screening for malignant neoplasms, colon (V76.51) Active confirmed Major Plan Of Treatment No Information Insurance Providers Payer Name Payer Address Payer Phone Subscriber Number Group Number Insured Name Patient Relationship to Insured Coverage Start Date Coverage End Date MEDICARE [address] [place], [place] [id number] NATALY JAIN Self - patient is the insured 1 [employer] [address] [place] [address] [phone] [id number] SILVESTRE JAINRIETTA Self - patient is the insured 1
--- NOTE | 2025-03-03 20:55 | PC.NURSE ---
pt sitting on chair in room, states she is more comfortable, R knee pain started out of no where per pt. She walks with a walker at baseline, no official dx of arthritis. confirms only medical hx is high blood pressure. vitals WNL, respirations even and unlabored, pain 7/10 while resting.
--- NOTE | 2025-03-03 21:24 | PC.NURSE ---
pt rang call howell, states she cannot wait here any longer, provider advised, ultrasound states they will get to pt as soon as they can but did have a few pt ahead of her. I advised pt and pt agrees to wait a little while longer.
--- NOTE | 2025-03-03 21:51 | PC.NURSE ---
pt medicated per MAR
--- NOTE | 2025-03-03 23:04 | PC.NURSE ---
Arielle RN covering at this time, pt noted to be standing at doorway with walker. LISA advised of patient's request and verbal expression of desires to leave as she reports she has been here since 4pm and it is getting late. The pt is awake, alert, without distress noted. RN made the patient aware that her radiology imaging has not yet been resulted/returned and encouraged her to stay until we can have the LISA review the images and/or get the final read. The pt verbal expressed her frustrations to this RN and was observed to independently ambulate to the restroom with use of walker
[2025-03-03] MEDS: Lidocaine 4 % Patch ADH..PATCH 1 PATCH TRANSDERMA (23:55)
[2025-03-04 00:02] VITALS: BP 155/86; PULSE 70; RESP 16; TEMP 36.8; O2SAT 94
== END 2025-03-04 00:08 | disposition home or self-care (01) ==
PROVIDERS: Physician Assistant Medical; Emergency Provider Emergency Medicine; PCP Internal Medicine
DX: M25.561 Pain in right knee (principal); M25.461 Effusion, right knee; M71.21 Synovial cyst of popliteal space [Baker], right knee; M21.371 Foot drop, right foot; R60.0 Localized edema; I48.91 Unspecified atrial fibrillation; E11.9 Type 2 diabetes mellitus without complications; R06.02 Shortness of breath; I10 Essential (primary) hypertension; Z86.73 Personal history of transient ischemic attack (TIA), and cerebral infarction without residual deficits; Z79.01 Long term (current) use of anticoagulants; Z98.1 Arthrodesis status
CPT/HCPCS: 36415; 73564; 80053; 83880; 85025; 93971; 99284

== ENCOUNTER → 2025-03-03 16:06 | Outpatient (BNV) | payer MEDICARE, SELFPAY | PROVIDERS: Emergency Provider Emergency Medicine; PCP Internal Medicine; Visit Provider Radiology Neuroradiology | DX: R22.41 Localized swelling, mass and lump, right lower limb (principal); M17.11 Unilateral primary osteoarthritis, right knee | CPT/HCPCS: 73564; 93971 ==

== ENCOUNTER 2025-03-05 11:25 | Outpatient (AMB) | payer MEDICARE, SELFPAY ==
[2025-03-05 11:28] VITALS: BP 152/90; PULSE 79; TEMP 36.2; O2SAT 96
--- NOTE | 2025-03-05 11:28 | MHC.PC.OV ---
Vital Signs 03/05/25 11:28 Height 5 ft 1 in BMI Reason not done Patient refused/unable BP 152/90 H Blood Pressure Location Lt brachial Position Sitting Pulse 79 Pulse Source Pulse Oximeter Temp 97.1 F Temp Source Temporal Artery Scan Pulse Oximetry (%) 96 Oxygen Delivery Method Room Air Intake Visit Reasons: Knee pain Allergies codeine Adverse Reaction (Intermediate, Verified 03/05/25 11:28) seizure oxycodone (From Percocet) Adverse Reaction (Intermediate, Verified 03/05/25 11:28) Nausea and Vomiting Tobacco use date assessed: 03/05/25 Fall risk assessment: No Falls in past year Last assessed Fall Risk: 02/21/25 Dental Screening Dental Screen Date: 02/21/25 Did you have a dental visit in the last 12 months?: Yes Did you have a dental problem in the last 6 months where you did not have access to dental care?: No Was dental information given to patient?: Patient has dentist [facility] Medical History Schatzki's ring Rectal bleed IBS (irritable bowel syndrome) Allergies Urticaria Dyslipidemia Type 2 diabetes mellitus without complication, without long-term current use of insulin Hearing impairment History of adenomatous polyp of colon Lumbar back pain with radiculopathy affecting left lower extremity Obesity (BMI 30-39.9) Paget's disease of the bone Osteopenia GERD (gastroesophageal reflux disease) Impaired fasting glucose Anxiety and depression Essential hypertension Surgical History History of back surgery Hx of LASIK Hx of left cataract extraction Hx of tubal ligation H/O colonoscopy History of partial hysterectomy History of appendectomy History of cholecystectomy H/O breast surgery History of lumbar discectomy Social History Household Members: None Housing: House Are you a primary career resource technician to a significant other at home: No Do you presently have visiting nurse or other home services: No Alcohol intake: never Patient Tobacco Use Status: Never used Tobacco e-Cigarette/Vaping Use: Never Used Second Hand Smoke Exposure: No Advance Directives Date on File: 11/02/22 service: No Current occupational status: retired Cognitive needs: No Hearing needs: No Vision needs: Yes (Reading glasses) Questionnaire PHQ-9 Over the last 2 weeks, how often have you been bothered by any of the following problems? 1. Little interest or pleasure in doing things: not at all 2. Feeling down, depressed, or hopeless: not at all 3. Trouble falling or staying asleep, or sleeping too much: not at all 4. Feeling tired or having little energy: several days 5. Poor appetite or overeating: not at all 6. Feeling bad about yourself - or that you are a failure or have let yourself or your family down: not at all 7. Trouble concentrating on things, such as reading the newspaper or watching television: not at all 8. Moving or speaking so slowly that other people could have noticed. Or the opposite - being so fidgety or restless that you have been moving around a lot more than usual: not at all 9. Thoughts that you would be better off or of hurting yourself in some way: not at all Total score: 1 Source: Developed by Drs. Dinh Trejo, Nicole Bhagat, Bari Sheikh and colleagues, with an educational melvin from [employer]. Thrive Questionnaire Date Thrive assessed: 11/20/24 I am a: Patient What is your living situation today?: I have a steady place to live Within the past 12 months, did the food you bought not last and you didn't have the money to get more?: Never true Within the past 12 months, did you worry whether your food would run out before you got money to buy more?: Never true Do you have trouble paying for medicines?: No Do you have trouble getting transportation to medical appointments?: No Do you have trouble paying your heating and electricity bill?: No Do you have trouble taking care of your child, family member or friend?: No Do you have trouble with day-to-day activities such as bathing, preparing meals, shopping, managing finances, etc.?: I choose not to answer this question Are you currently unemployed and looking for a job?: No Are you interested in more education?: No Please select the resources that you would like help with: None Currently or been in a relationship where the following occur: No concerns reported THRIVE Score: 0 AUDIT C Alcohol Use Questionnaire (AUDIT-C) 1. How often do you have a drink containing alcohol?: Monthly or less 2. How many drinks containing alcohol do you have on a typical day when you are drinking?: 1 or 2 3. How often do you have six or more drinks on one occasion?: Never Total Score: 1 PARISH-7 AMB Questionnaire PARISH-7 Date PARISH - 7 assessed: 11/27/24 Feeling nervous, anxious, or on edge: 0 = Not at all Not being able to stop or control worryin = Not at all Worrying too much about different things: 0 = Not at all Trouble relaxin = Not at all Being so restless that it is hard to sit still: 0 = Not at all Becoming easily annoyed or irritable: 0 = Not at all Feeling afraid as if something awful might happen: 0 = Not at all Total PARISH-7 score (0-4 normal; 5-9 mild; 10-14 moderate; 15-21 severe): 0 Source: Developed by Drs. Dinh Trejo, Nicole Bhagat, Bari Sheikh and colleagues, with an educational melvin from [employer]. Physical exam (Primary Care) Vital Signs: Last Vital Signs Temp 97.1 F 03/05/25 11:28 Pulse 79 03/05/25 11:28 BP 152/90 H 03/05/25 11:28 Pulse Ox 96 03/05/25 11:28 Oxygen Delivery Method Room Air 03/05/25 11:28 Tobacco/Smoking Status: Tobacco use Status Tobacco use date assessed 03/05/25 03/05/25 11:29 Patient Tobacco Use Status Never used Tobacco 03/05/25 11:29 e-Cigarette/Vaping Use Never Used 03/05/25 11:29 PHQ-9: PHQ-9 Score PHQ-9: Total score 1 03/05/25 11:51 Thrive Assessment: Date of Thrive Assessment Date Thrive assessed 11/20/24 03/05/25 11:29 Currently or been in a relationship where the following occur: No concerns reported Const General: alert; No acute distress Eyes Conjunctivae: conjunctivae normal Resp Auscultation: clear to auscultation bilaterally Cardio Rate: regular rate Rhythm: regular rhythm GI Inspection: Yes normal to inspection Extrem General: Yes normal to inspection and No edema Elbow/forearm/wrist images:  1. Right knee mild swelling with tenderness on the right medial anterior area on palpation Office Procedures Flu Questionnaire Does the patient have a severe egg allergy?: No Does the patient have severe life threatening allergies?: No Does the patient have a fever or illness today?: No Has the patient ever had Guillain-Bellingham Syndrome?: No Has the patient ever had any past reaction to a flu shot?: No Immunizations Fluarix [id number] (PF) 45 mcg (15 mcg x 3)/0.5 mL IM syringe Performing Provider: Felipa Mckinnon MD [facility] Administered by: Fiorella Dkue CMA on 03/05/25 11:41 Dose Route Admin Location Dispensed Lot Number Expiration Date [facility] [employer] Officer 0.5 mL IM Left Deltoid 0.5 mL [id number] 11/18/25 [id number] [employer] VIS Given Date VIS Provided VIS Publication Date 03/05/25 Single Vaccine 24 Eligibility Eligibility Date Funding Source Not [facility] Eligible 03/05/25 Private Coding Level of Care Code Est Pt Level 4 (21629) Complex EM visit Add On G2211 Diagnoses Osteoarthritis of right knee M17.11 Essential hypertension I10 Paroxysmal atrial fibrillation I48.0 Type 2 diabetes mellitus without complication, without long-term current use of insulin E11.9 Dyslipidemia E78.5 Obesity (BMI 30-39.9) E66.9 Gastroesophageal reflux disease, unspecified whether esophagitis present K21.9 Esophagitis presence: esophagitis presence not specified Pes anserinus bursitis of right knee M70.51 Assessment & Plan Assessment & Plan (1) Osteoarthritis of right knee: Code(s): M17.11 - Unilateral primary osteoarthritis, right knee Category: Medical Plan: Patient has gone to the emergency room having right knee pain noted to have moderate osteoarthritis with some effusion (2) Essential hypertension: Code(s): I10 - Essential (primary) hypertension Category: Medical Plan: Continue with blood pressure medication. Decrease salt intake and exercise patient is on metoprolol 75 mg twice a day (3) Paroxysmal atrial fibrillation: Code(s): I48.0 - Paroxysmal atrial fibrillation Category: Medical Plan: Continue with anticoagulation on metoprolol (4) Type 2 diabetes mellitus without complication, without long-term current use of insulin: Code(s): E11.9 - Type 2 diabetes mellitus without complications Category: Medical Plan: Decrease the amount of carbohydrate intake, pasta, bread, rice and potatoes are all sugar and that is aside from all the sweet stuff, remember that fruits are good but they are Sweet also. Hemoglobin A1c goal of less than 7.0. Patient on Jardiance 10 mg once a day (5) Dyslipidemia: Code(s): E78.5 - Hyperlipidemia, unspecified Category: Medical Plan: Avoid fried foods, chicken skin, eggs, butter margarine, pastries and meat. Be it pork or beef they have a lot of cholesterol LDL goal of less than 100 and triglyceride of less than 150 on rosuvastatin 5 mg once a day (6) Obesity (BMI 30-39.9): Code(s): E66.9 - Obesity, unspecified Category: Medical Plan: Diet and exercise (7) GERD (gastroesophageal reflux disease): Code(s): K21.9 - Gastro-esophageal reflux disease without esophagitis Category: Medical Qualifiers: Esophagitis presence: esophagitis presence not specified Qualified Code(s): K21.9 - Gastro-esophageal reflux disease without esophagitis (8) Pes anserinus bursitis of right knee: Code(s): M70.51 - Other bursitis of knee, right knee Category: Medical Plan History of Present Illness The patient is an 79-year-old female presenting with right knee pain. The pain began suddenly with swelling, but the patella was not specifically swollen. She denies recent trauma or overexertion but notes the use of new orthopedic shoes, which may have altered her gait. The patient has moderate osteoarthritis in the right knee, confirmed by imaging, with no fractures. Anserine bursitis is present, and anticoagulation therapy limits treatment options like injections. The patient has a history of osteopenia, GERD, generalized anxiety disorder, hypertension, diabetes mellitus, hypercholesterolemia, post-laminectomy syndrome, history of CVA, and atrial fibrillation. Diabetes is managed with Jardiance, and blood pressure is controlled with metoprolol. Cholesterol is managed with rosuvastatin, with recent labs showing a hemoglobin A1c of 6.9 and an LDL of 61 mg/dL. Preventative vaccinations include flu, shingles, and pneumonia vaccines. 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 for 15 years, continues to perform stretches periodically Review of Systems - Musculoskeletal: Reports right knee pain and swelling, denies recent trauma or overexertion Physical Exam - Musculoskeletal: No pain on palpation of the knee, presence of effusion noted Results - Labs: Normal blood count, no anemia, normal platelet count, normal electrolytes, renal function, liver numbers; blood sugar 137 mg/dL, hemoglobin A1c 6.9, LDL 61 mg/dL, triglycerides 169 mg/dL - Imaging: Moderate osteoarthritis of the right knee, no fracture Plan Patient was informed and verbally consented to the use of an ambient scribe for clinic note documentation during this visit. 1. Right Knee Osteoarthritis The patient will be referred to orthopedics for further evaluation and management of right knee osteoarthritis. Pain management includes the use of Tylenol and consideration of tramadol for severe pain, with instructions to take it at night with food. Voltaren gel is suggested as an additional anti-inflammatory measure. 2. Anserine Bursitis Anserine bursitis management is complicated by the patient's anticoagulation therapy, limiting the use of injections. Pain control is prioritized, and the patient is advised to continue with current pain management strategies. 3. Diabetes Mellitus The patient's diabetes is managed with Jardiance, aiming for a hemoglobin A1c goal of less than 7.0. Recent lab results show a hemoglobin A1c of 6.9, indicating good control. 4. Hypertension Hypertension is managed with metoprolol 75 mg twice daily. 5. Hypercholesterolemia The patient's hypercholesterolemia is managed with rosuvastatin 5 mg daily, with a target LDL goal of less than 100 mg/dL. Recent labs show an LDL of 61 mg/dL, indicating effective management. Discussion Notes I discussed with the patient the management of her right knee osteoarthritis, emphasizing the importance of pain control and the limitations posed by her anticoagulation therapy. We talked about the use of tramadol for pain management, with instructions to take it at night with food, and the potential use of Voltaren gel as an anti-inflammatory measure. I also explained the referral process to orthopedics for further evaluation and management. Patient Instructions - Take tramadol at night with food for pain management. - Use Voltaren gel as an additional anti-inflammatory measure. - Follow up with orthopedics as scheduled for further evaluation of knee pain. - Continue current medications for diabetes, hypertension, and hypercholesterolemia as prescribed. Orders: Orders Influenza [id number] Immunization Today Z23 - Encounter for immunization Referrals Orthopedics Referral M70.51 - Other bursitis of knee, right knee Medications: New tramadol 50 mg PO BEDTIME PRN 7 tabs 0RF pain M70.51 - Other bursitis of knee, right knee
== END 2025-03-05 12:05 | disposition home or self-care (01) ==
LOC: HO.HMCH 11:26
PROVIDERS: PCP Internal Medicine; Visit Provider Internal Medicine
DX: E11.69 Type 2 diabetes mellitus with other specified complication (principal); I48.0 Paroxysmal atrial fibrillation; E66.9 Obesity, unspecified; M17.11 Unilateral primary osteoarthritis, right knee; I10 Essential (primary) hypertension; E78.5 Hyperlipidemia, unspecified; K21.9 Gastro-esophageal reflux disease without esophagitis; M70.51 Other bursitis of knee, right knee; Z23 Encounter for immunization

== ENCOUNTER → 2025-03-05 11:25 | Outpatient (BNVA) | payer MEDICARE, SELFPAY | PROVIDERS: PCP Internal Medicine; Visit Provider Internal Medicine | DX: M17.11 Unilateral primary osteoarthritis, right knee (principal); M70.51 Other bursitis of knee, right knee; M25.461 Effusion, right knee; I10 Essential (primary) hypertension; I48.0 Paroxysmal atrial fibrillation; E11.9 Type 2 diabetes mellitus without complications; E78.00 Pure hypercholesterolemia, unspecified; E66.9 Obesity, unspecified; K21.9 Gastro-esophageal reflux disease without esophagitis; F41.1 Generalized anxiety disorder; Z23 Encounter for immunization | CPT/HCPCS: 90471; 90656; 96127; 99212 ==

== ENCOUNTER 2025-03-18 14:33 | Outpatient (AMB) | payer MEDICARE, SELFPAY ==
--- OUTSIDE RECORDS SUMMARY | 2024-07-24 10:00 | XMS_ITS ---
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 Name Role Phone Lisa Card Primary Care Provider Unavailab Sal Omalley Unavailable [phone] Anne Lin Unavailable [phone] Allergies Allergen (clinical drug ingredient) Drug/Non Drug [...] Negative Encounters Encounter Location Date Provider Diagnosis [facility] [place] [address] [place] [address] 07/24/2024 Anne Lin Plan Of Treatment Next Appt Details Provider Name:Sal Mace , 05/06/2025 02:30:00 PM, [address] [place], [address], Progress Notes * Yahaira JAINDOB: [birth year] (79 yo F)Acc No.[id number]:07/24/2024 Progress Notes Patient: Yahaira GOLDBERG Provider: Heber Lin DPM :1945 A ge:78 Y S ex:Female Date:07/24/2024 Address:[address] [place] [address], [place], [place] Pcp:Lisa Card Subjective: * Chief Complaints: [...] ardiovascular: Pacemaker d enies. 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 W PW d enies. C [...] Generated for Jose Manuel duff/Karon/Maisha on: 1 06:58 PM EDT
--- OUTSIDE RECORDS SUMMARY | 2024-08-13 10:00 | XMS_ITS ---
Author Organization [facility] Address [address] [place] [address] Care Team Providers Care Bundler Seasonal Greenery Name Role Phone Lisa Card Primary Care Provider Unavailab Sal Omalley Unavailable [phone] Anne Lin Unavailable [phone] Encounters Encounter Location Date Provider Diagnosis [address] [address] 08/13/2024 Anne Lin Plan Of Treatment Next Appt Details Provider Name:Sal Mace , 05/06/2025 02:30:00 PM, [address] [place] [address], [phone], Progress Notes * Yahaira JAINDOB: [birth year] (79 yo F)Acc No.[id number]:08/13/2024 Progress Notes Patient: Yahaira GOLDBERG Provider: Heber [...] 08/13/2024 Generated for Jose Manuel Arnold/Maisha on: 06:58 PM EDT
--- NOTE | 2025-03-18 14:40 | MHC.OFFVIS ---
Vital Signs 03/18/25 14:41 Height 5 ft 1 in BP 126/78 Blood Pressure Location Lt brachial Position Sitting Pulse 99 Intake Visit Reasons: 3 mth fu Intake Note: 3 month follow-up hearts doing ok Committee Member Required: No Allergies codeine Adverse Reaction (Intermediate, Verified 03/05/25 11:28) seizure oxycodone (From Percocet) Adverse Reaction (Intermediate, Verified 03/05/25 11:28) Nausea and Vomiting Medication List - Last Reconciled 03/18/25 by Steven Aguilar MD alpha lipoic acid 100 mg PO DAILY apixaban (Eliquis) 5 mg PO BID ascorbate calcium (vitamin C) 500 mg PO DAILY blood-glucose meter (Freestyle [employer] meter) As directed calcium citrate 630 mg PO DAILY cetirizine (All Day Allergy (cetirizine)) 10 mg PO DAILY cholecalciferol (vitamin D3) 25 mcg PO DAILY citalopram 20 mg PO BEDTIME empagliflozin (Jardiance) 10 mg PO DAILY ferrous sulfate 220 mg (5 mL) PO DAILY lancets (FreeStyle Lancets) As directed; TID to check blood sugars methylcellulose (laxative) (Citrucel) 500 mg PO DAILY metoprolol tartrate 75 mg (1.5 x 50 mg) PO BID multivitamin 1 tab PO DAILY pantoprazole 20 mg PO DAILY@0630 90 days rosuvastatin 5 mg PO DAILY tramadol 50 mg PO BID PRN HPI Comments Details: Ya comes for follow up of her atrial fibrillation. Recently admitted after admission for stroke with lower GI bleed. She was subsequently referred for evaluation for left atrial appendage occlusion device. She has been evaluated and consider candidate. She is now waiting for further imaging to assess for candidacy. Patient has had no recurrent episodes of atrial fibrillation. She is currently back on apixaban 5 mg b.i.d. which she is tolerating. No recurrent bleeding issues. Has exertional shortness of breath but denies any orthopnea, PND, leg edema. Takes all her medications. [facility] Medical History Schatzki's ring Rectal bleed IBS (irritable bowel syndrome) Allergies Urticaria Dyslipidemia Type 2 diabetes mellitus without complication, without long-term current use of insulin Hearing impairment History of adenomatous polyp of colon Lumbar back pain with radiculopathy affecting left lower extremity Obesity (BMI 30-39.9) Paget's disease of the bone Osteopenia GERD (gastroesophageal reflux disease) Impaired fasting glucose Anxiety and depression Essential hypertension Surgical History History of back surgery Hx of LASIK Hx of left cataract extraction Hx of tubal ligation H/O colonoscopy History of partial hysterectomy History of appendectomy History of cholecystectomy H/O breast surgery History of lumbar discectomy Social History Household Members: None Housing: House Are you a primary patient care secretary to a significant other at home: No Do you presently have visiting nurse or other home services: No Alcohol intake: never Patient Tobacco Use Status: Never used Tobacco e-Cigarette/Vaping Use: Never Used Second Hand Smoke Exposure: No Advance Directives Date on File: 11/02/22 service: No Current occupational status: retired Cognitive needs: No Hearing needs: No Vision needs: Yes (Reading glasses) Review of Systems Const Denies chills, Denies fatigue, Denies fever(s), Denies frequent falls, Denies weakness, Denies weight gain and Denies weight loss ENT Denies dizziness Card Denies chest pain, Denies leg edema, Denies lightheadedness, Denies palpitations, Denies dyspnea, Denies dyspnea on exertion, Denies orthopnea and Denies other (loss of consciousness) Resp Denies cough, Denies dyspnea and Denies dyspnea on exertion GI Denies hematochezia and Denies change in stool character Musc Denies abnormal gait, Denies muscle weakness, Denies numbness, Denies radiating pain into limb and Denies tingling Neuro Denies abnormal gait, Denies dizziness, Denies frequent falls, Denies numbness, Denies tingling and Denies weakness Endo Denies fatigue and Denies palpitations Physical Exam Vital Signs: Last Vital Signs Pulse 99 03/18/25 14:41 BP 126/78 03/18/25 14:41 Const General: cooperative, healthy appearing, comfortable and no acute distress Orientation/consciousness: patient oriented x3 Neck Neck: Yes normal visual inspection Resp Effort & Inspection: normal respiratory effort Auscultation: clear to auscultation bilaterally, no rales, no rhonchi and no wheezes Cardio Rate: regular rate Rhythm: regular rhythm Heart sounds: S1 normal heart sound present, S2 normal heart sound present, no gallops, no murmurs and no rubs Neuro General: patient oriented x3 Extrem Other: trace ankle edema General: Yes normal to inspection Psych Appearance: grossly normal Mental Status: mental status grossly normal Speech and movement: Normal speech and movement present Assessment & Plan Assessment & Plan (1) Paroxysmal atrial fibrillation: Code(s): I48.0 - Paroxysmal atrial fibrillation Category: Medical Plan: Paroxysmal atrial fibrillation without any obvious clinical recurrence at this point time. She is very high risk for recurrent thromboembolic event. She is currently back on apixaban therapy and tolerating well. She is scheduled for left atrial appendage occlusion device and I think she is a candidate for the same. She is waiting for to be enrolled in his trial. If this is going to take a long time I would just enroll her to place a Watchman device. Avoidance of stimulants was discussed. Advised to call me with new symptoms. No indication for antiarrhythmic drug therapy at this point time. (2) Diastolic dysfunction: Code(s): I51.89 - Other ill-defined heart diseases Category: Medical Plan: Diastolic dysfunction probably related to hypertensive heart disease with noted mild LVH with elevated filling pressures. Clinically euvolemic and well compensated. She is currently on therapy with Jardiance which she will continue. Signs and symptoms of heart failure were discussed. She understands agrees. Avoidance of salt loading was discussed. Continue aggressive blood pressure control. Advised to participate in regular physical activity. Will follow up in the clinic in 6 months time, sooner PRN. Thank you for allowing me to partake in her care Coding Level of Care Code Est Pt Level 4 (87862) Complex EM visit Add On G2211 Diagnoses Paroxysmal atrial fibrillation I48.0 Diastolic dysfunction I51.89
[2025-03-18 14:41] VITALS: BP 126/78; PULSE 99
--- OUTSIDE RECORDS SUMMARY | 2025-03-18 18:59 | XMS_ITS | Patient Health Record ---
Author Organization [facility] Physician Yoseph es Billing Info Address [address] [place] [address] [place] [address] Support Name Relationship Address Phone Tricia Real Emergency Contact [address] [place] [address] Yahaira Herring Guarantor Unknown [phone] Allergies Allergen (clinical drug ingredient) Drug/Non Drug [...] Problem Status W/U Status Risk Notes Problem [id number] Spondylolisthesi s, lumbar region (M43.16) Active confirmed Problem 522492412 Radiculopathy, lumbar region (M54.16) Active confirmed Problem 53194464 Spinal stenosis, 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) Active confirmed Problem 089306234 Lumbar radiculopathy (M54.16) Active confirmed Problem 882426513 Lumbar spondylos is (M47.816) Active confirmed Problem 887233632 Lumbar radiculopathy, chronic (M54.16) Active confirmed Problem 600353093 Spondylolisthesi s, unspecified spinal region (M43.10) Active confirmed Problem 43684091 Hypertension, unspecified type (I10) Active confirmed Problem 173172613 Gastroesophageal reflux disease, unspecified whether esophagitis present (K21.9) Active confirmed Plan Of Treatment Future Test Test Name Order Date MRI-LUMBAR SPINE; W/O CONTRAST MATL (721 48) 08/18/2020 XRAY- SPINE LUMBAR AP AND LAT/SPOT (7210 0)([facility]) 11/12/2020 CT- LUMBAR SPINE W/O CONTRAST (07880)([facility]) 01/12/2021 XRAY- SPINE LUMBAR AP AND LAT/SPOT (7210 0)([facility]) 03/16/2021 CT- [facility] W/O CONTRAST (77770[facility] 07/13/2021 Insurance Providers Payer Name Payer Address Payer Phone Subscriber Number Group Number Insured Name Patient Relationship to Insured Coverage Start Date Coverage End Date [place] PART [place] [address] [place], [place] [id number] Yahaira Herring Self - patient is the insured [facility] PPO/[id number] [address] [place], [place] [id number] Yahaira Herring Self - patient is the insured Medical (General) History Medical History History ICD Code Lumbar radiculopathy Hypertension, unspecified type I10 Gastroesophageal reflux disease, unspeci fied whether esophagitis present K21.9 Spondylolisthesis, unspecified spinal re gion M43.10 Surgical History Surgery Date(Month/Year) hysterectomy gall bladder surgery appendectomy breast surgery Hospitalization History Reason Date(Month/Year) See Above
--- OUTSIDE RECORDS SUMMARY | 2025-03-18 18:59 | XMS_ITS | Patient Health Record ---
Author Organization [facility] Address [address] [place] [address] Care Team Providers Care Roper Operator Name Role Phone Stephie Lisa Primary Care Provider Unavailab Sal Omalley Unavailable [phone] Anne Lin Unavailable [phone] Allergies Allergen (clinical drug ingredient) Drug/Non Drug [...] Problem Acquired hammer toe of right foot (5155999225835 105) Other hammer toe(s) (acquired), right foot (M20.41) Active confirmed Problem Acquired hammer toe of left foot (9366096964492 103) Other hammer toe(s) (acquired), left foot (M20.42) Active confirmed Problem Type 2 diabetes mellitus with peripheral angiopathy (949516288) Type 2 diabetes mellitus with diabetic peripheral angiopathy without gangrene (E11.51) Active confirmed Q7(A), Q8(2B), Q9(1B,2C) Vital Signs Blood pressure diastolic 84 mm Hg 01/17/2025 Height 5 ft 1 in in 01/17/2025 Blood pressure systolic 123 mm Hg 01/17/2025 Weight 200 lbs 01/17/2025 BMI 37.79 kg/m2 01/17/2025 Procedures Procedure Date Ordered Date Performed Result Body Sit e 87174-QMARIIW NAIL, 1-5 10/15/2024 N/A 02122-KQXW SKIN LESIONS, 2 TO 4 10/15/2024 N/A S2912-NVWSKODU DYSTROPHIC NAILS ANY # 10/15/2024 N/A 73255-CYHPADP NAIL, 1-5 01/17/2025 N/A 44249-VRJL SKIN LESIONS, 2 TO 4 01/17/2025 N/A S1631-WPIOSFRY DYSTROPHIC NAILS ANY # 01/17/2025 N/A Encounters Encounter Location Date Provider Diagnosis [address] [address] 10/15/2024 Sal Mace Type 2 diabetes mellitus with diabetic peripheral angiopathy without gangrene E11.51 ; Other hammer toe(s) (acquired), right foot M20.41 ; Tinea unguium B35.1 ; Pain in right toe(s) M79.674 ; Pain in left toe(s) M79.675 and Other hammer toe(s) (acquired), left foot M20.[address] [address] 01/17/2025 Sal Mace Type 2 diabetes mellitus with diabetic peripheral angiopathy without gangrene E11.51 ; Tinea unguium B35.1 ; Pain in right toe(s) M79.674 and Pain in left toe(s) M79.[address] [address] 07/24/2024 Anne Lin [address] [address] 07/31/2024 Anne Lin [address] [address] 09/26/2024 Anne Lin Assessments Encounter Date Diagnosis [...] Treatment Pending Test Test Name Order Date 24216-QJLWXBK NAIL, 6 OR MORE 06/14/2012 68595-NIAENUZ NAIL, 1-02/25/2013 31080-YMAYTUK NAIL, -10/15/2024 39550-RNDLKZN NAIL, 1-08/29/2012 19527-IFISIUJ NAIL, -11/28/2012 34600-AXYMMTS NAIL, 1-01/17/2025 06479-Wlgjomha Plate 11/28/2012 97439-Qkszhgmu Plate 02/25/2013 13158-Zzktidoy Plate 06/14/2012 37765-Glctrtsh Plate 08/29/2012 88353-PMES SKIN LESIONS, 2 TO 4 01/18/20 25 69191-CLZY SKIN LESIONS, 2 TO 4 10/16/19 25 R7278-HKONCFJX DYSTROPHIC NAILS ANY # Q2812-TBJEAYEM DYSTROPHIC NAILS ANY # Next Appt Details Provider Name:Sal Mace , 05/06/2025 02:30:00 PM, [address] [place] [address], [phone], Insurance Providers Payer Name Payer Address Payer Phone Subscriber Number Group Number Insured Name Patient Relationship to Insured Coverage Start Date Coverage End Date Medicare National [facility]t [facility] [address] [place] [address] [id number] Yahaira Herring Self - patient is the insured 0 [employer] Blue [employer] [address] [place] [address] [phone] [id number] Yahaira Herring Self - patient is [...]
--- OUTSIDE RECORDS SUMMARY | 2025-03-18 18:59 | XMS_ITS | Clinical Summary ---
Author Organization [employer] Address [address] [facility] [address] [place] [address] Care Team Providers Care Natural Gas Field Processing Supervisor Name Role Phone Unavailable Primary Care Provider [...] age to complete this topic Insurance MEDICARE [facility] MEDEX MEDICARE SUPPLEMENT
--- OUTSIDE RECORDS SUMMARY | 2025-03-18 18:59 | XMS_ITS | Patient Health Record ---
Author Organization [facility] Address [address] [place] [address] [address] [place] [address] Care Team Providers Care Intelligence Officer Name Role Phone Karyna Clarke Unavailable [phone] Reason For Referral No Information Medications Medication SIG (Take, Route, Frequency, Duration) Notes Start Date End Date Status hydroCHLOROthiazide 1 ORAL daily; Duration: -3 [facility] 09/24/2012 Active Citalopram Hydrobromide 20MG ORAL; Duration: -3 [facility] [place] CeleBREX 200MG ORAL; Duration: -3 [facility] 10/15/2013 Active Vitamin E 200UNITS 1 ORAL daily; Duration: -3 [facility] 09/24/2012 Active Atenolol 25MG 1 ORAL DAILY; Duration: -3 [facility] 09/24/2012 Active Calcium 1 ORAL daily; Duration: -3 [facility] 09/24/2012 Active Vitamin D3 1000 IU ORAL daily; Duration : -3 [facility] 09/24/2012 Active [place] Jelly 1 ORAL daily; Duration: -3 [facility] 09/24/2012 Active Problems Problem Type SNOMED Code ICD Code Onset Dates Problem Status W/U Status Risk Notes Problem Menopausal symptom (82172992) Symptomatic menopausal or female climacteric states (627.2) Active confirmed Major Problem Gynecological examination normal (878768260619508) Routine gynecological examination (V72.31) Active confirmed Diag Problem Exercises teaching, guidance, and counseling (115270270) Exercise counseling (V65.41) Active confirmed Diag Problem Screening for malignant neoplasm of colon (547231889) Special screening for malignant neoplasms, colon (V76.51) Active confirmed Major Plan Of Treatment No Information Insurance Providers Payer Name Payer Address Payer Phone Subscriber Number Group Number Insured Name Patient Relationship to Insured Coverage Start Date Coverage End Date MEDICARE [address] [place], [place] [id number] NATALY JAIN Self - patient is the insured 1 [employer]EX [address] [place] [address] [phone] [id number] SILVESTRE JAINRIETTA Self - patient is the insured 1
== END 2025-03-18 15:04 | disposition home or self-care (01) ==
LOC: HO.HCS 14:35
PROVIDERS: PCP Internal Medicine; Visit Provider Internal Medicine Cardiovascular Disease
DX: I48.0 Paroxysmal atrial fibrillation (principal); I51.89 Other ill-defined heart diseases
CPT/HCPCS: 99214; G2211

== ENCOUNTER → 2025-03-18 14:33 | Outpatient (BNVA) | payer MEDICARE, SELFPAY | PROVIDERS: PCP Internal Medicine; Visit Provider Internal Medicine Cardiovascular Disease | DX: I48.0 Paroxysmal atrial fibrillation (principal); I51.89 Other ill-defined heart diseases | CPT/HCPCS: 99212 ==

== ENCOUNTER 2025-04-09 13:11 | Outpatient (REF) | payer MEDICARE, SELFPAY ==
--- NOTE | ~2025-04-09 | XR_ITS ---
EXAMINATION: XR LUMBAR SPINE 4 OR MORE VIEWS CLINICAL INFORMATION: M46.1 - Sacroiliitis, not elsewhere classified COMPARISON: Radiographs of the lumbar spine on July 26, 2024. TECHNIQUE: AP and lateral views of the lumbar spine were obtained. Lateral views were obtained in flexion, extension, and neutral positions. FINDINGS: Status post posterior hardware placement at L4-L5 with disc spacers at L4-L5 and L5-S1. Hardware appears intact. Straightening of the lumbar lordosis. Minimal grade 1 retrolisthesis of L3 on L4 is stable in neutral, flexion and extension positions. Grade 1 anterolisthesis of L4 on L5, stable in neutral, flexion and extension positions. No compression fracture. Small marginal osteophytes at multiple levels. Similar moderate degenerative changes in the right greater than left sacroiliac joints. XR/XR lumbar spine 4V min IMPRESSION: 1. No worsening listhesis with flexion or extension. 2. Similar moderate degenerative changes in the right greater than left sacroiliac joints. Electronically signed by: Vaibhav Horner MD 04/09/2025 03:03 PM MELISSA
== END 2025-04-09 13:12 | disposition home or self-care (01) ==
LOC: HO.HOSX 13:11
PROVIDERS: Visit Provider Neurological Surgery
DX: M46.1 Sacroiliitis, not elsewhere classified (principal); Z98.1 Arthrodesis status
CPT/HCPCS: 72110; 99212

== ENCOUNTER 2025-04-09 13:11 | Outpatient (AMB) | payer MEDICARE, SELFPAY ==
--- OUTSIDE RECORDS SUMMARY | 2024-07-24 09:00 | XMS_ITS ---
Author Organization [facility] [place] Address [address] [place] [address] Care Team Providers Care Cheese Supervisor Name Role Phone Lisa Card Primary Care Provider Unavailab Sal Omalley Unavailable [phone] Anne Lin Unavailable [phone] Allergies Allergen (clinical drug ingredient) Drug/Non Drug Allergy documented on EMR Reaction Allergy Type Onset Date Status acetaminophen / oxycodone Percocet nausea and vomiting Drug Allergy Active codeine Codeine nausea Drug Allergy Active Medications Medication SIG (Take, Route, Frequency, Duration) Notes Start Date End Date Status Citrucel 500 MG 2 tablets with a full glass of water as needed Orally Six times a day Active Pantoprazole Sodium 20 MG 1 tablet 1/2 t o 1 hour before morning meal Orally Once a day Active Citalopram & Diet Manage Prod Active Losartan Potassium N ot-Taking Gabapentin Unknown Olmesartan Medoxomil 40 MG 1 tablet Oral ly Once a day Active Atenolol Not-Taking hydroCHLOROthiazide Not-Taking Jardiance 10 MG 1 tablet Orally Once a day Active Social History Tobacco Use: Social History Observation Description Date Details (start date - stop date) Never Smoker NA - NA Tobacco use other than smoking: Question Answer Notes Are you an other tobacco user? No Tobacco Control (Standard) Question Answer Notes Tobacco use: Nonsmoker Additional Findings: Tobacco non-user Current no nsmoker AUDIT-C (Standard) Question Answer Notes Did you have a drink contain ing alcohol in the past year? Yes How often did you have a dri nk containing alcohol in the past year? Declined to specify (0 point) How many drinks did you have on a typical day when you were drinking in the past year? Declined to specify (0 point) How often did you have six o r more drinks on one occasion in the past year? Declined to specify (0 point) Points 0 Interpretation Negative Encounters Encounter Location Date Provider Diagnosis [facility] [place] [address] [place] [address] 07/24/2024 Anne Lin Plan Of Treatment Next Appt Details Provider Name:Sal Mace , 05/06/2025 02:30:00 PM, [address] [place], [address], Progress Notes * Yahaira JAINDOB: [birth year] (79 yo F)Acc No.[id number]:07/24/2024 Progress Notes Patient: Yahaira GOLDBERG Provider: Heber Lin DPM :1945 A ge:78 Y S ex:Female Date:07/24/2024 Address:[address] [place] [address], [place], [place]-[address] Pcp:Lisa Card Subjective: * Chief Complaints: * * ROS: G eneral/Constitutional: Nausea d enies. V omiting d enies. H rachael Thirst d enies. L oss appetite d enies. C hills d enies. F atigue d enies.?Fever d enies. N ight Sweats d enies. U nexplained weight loss d enies. U nexplained weight gain d enies. H EENTM: Dentures d enies. D izziness d enies. G lasses/contacts a dmits. R etinopathy d enies. B lurred/double vision d enies. T MJ?denies. D ischarge/drainage d enies. I mplants d enies. S ore throat d enies. D ental implants a dmits. H jennie of hearing d enies. D ifficulty chewing/swallowing/speaking d enies. N ose bleeds d enies. S ore mouth d enies. ? R espiratory: On Oxygen d enies. P neumonia/pleurisy d enies.?Bronchitis d enies. E mphysema d enies. C oughing d enies. C ough blood?denies. S hortness of breath d enies. W heezing d enies. C ardiovascular: Pacemaker d enies. M FURNACE KEEPER d enies. W PW d enies. C HF d enies. H eart attack d enies. S eptal defect d enies. R apid beat d enies. C hest pain d enies. A trial Fib. d enies. M urmur/Palpitations d enies. G astrointestinal: Hemorrhoids d enies. S tomach/Abdominal pain d enies. D ark blood stool d enies. I rritable bowel a dmits. C onstipation d enies. D iarrhea d enies. H ematology: Swelling d enies. C lots d enies. V aricose Veins d enies. B ruising d enies. B leeding problem d enies. G enitourinary: Blood urine d enies. F requent/Painfu/urination/bladder control d enies. K idney stones d enies. I nfection (UTI) d enies. N ephropathy d enies. s ex trans dis (STD) d enies. P rostate d enies. M usculoskeletal: Hammertoes d enies. B unions d enies. B ack Pain d enies. M uscle Cramps/ Resting d enies. M uscle cramps / walking d enies.?Generalized aches and pains d enies. W eakness d enies. I nteg.: Adkins d enies. S cars d enies. C orns/calluses?denies. I ngrown nails d enies. P ainful nails d enies. O pen Sores d enies. R ashes d enies. N eurologic: Difficulty sleeping d enies. B rain disorder d enies. N umbness d enies. B alance trouble d enies. C onfusion d enies. F ainting/blackouts d enies. T ingling d enies. T remors d enies. * Medical History: M umps, Measles, High blood pressure, Chicken pox, Pagets disease of bones, Arthritis, Cataracts, Menieres disease, Reflux ( GERD), Sciatica, Joint implants/screws. * Surgical History: n ueroma left foot , CABG surgery . * Family History: M other: , diabetes, high blood pressure, diagnosed with Other malignant neoplasm of unspecified site, Diabetic - NIDDM, Unspecified essential hypertension. F ather: . M aternal uncle: heart attack. * Social History: T obacco Use: T obacco use other than smoking A re you an other tobacco user? N o Tobacco Control (Standard) T obacco use: N onsmoker A dditional Findings: Tobacco non-user C urrent nonsmoker D rugs/Alcohol: D rugs H ave you used drugs other than those for medical reasons in the past 12 months? N o M iscellaneous: C affeine: yes, frequency:, 1-2 cups per day. Children: yes. Marital status: . Occupation: Retired. D rug/Alcohol: A GERALDO-C (Standard) D id you have a drink containing alcohol in the past year? Y es H ow often did you have a drink containing alcohol in the past year? D eclined to specify (0 point) H ow many drinks did you have on a typical day when you were drinking in the past year? D eclined to specify (0 point) H ow often did you have six or more drinks on one occasion in the past year? D eclined to specify (0 point) P oints 0 I nterpretation N egative * Medications: T aking Citrucel 500 MG Tablet 2 tablets with a full glass of water as needed Orally Six times a day , Taking Pantoprazole Sodium 20 MG Tablet Delayed Release 1 tablet 1/2 to 1 hour before morning meal Orally Once a day , Taking Jardiance 10 MG Tablet 1 tablet Orally Once a day , Taking Olmesartan Medoxomil 40 MG Tablet 1 tablet Orally Once a day , Taking Citalopram & Diet Manage Prod , Not-Taking/PRN Atenolol , Not-Taking/PRN hydroCHLOROthiazide , Not-Taking/PRN Losartan Potassium , Unknown Gabapentin * Allergies: C odeine: nausea, Percocet: nausea and vomiting. Objective: * Vitals: Assessment: Plan: * Treatment: * Images: * The named appointment provid er may or may not be the originator of this progress note, and it is not deemed complete until electronically signed by the appointment provider. Sign off status: Pending * Provider: Heber Lin DPM Date: 0 07/24/2024 Generated for Jose Manuel duff/Karon/Maisha on: 06/10/2024 01:05 AM EST
--- OUTSIDE RECORDS SUMMARY | 2024-08-13 09:00 | XMS_ITS ---
Author Organization [facility] Address [address] [place] [address] Care Team Providers Care Bench Tool Maker Name Role Phone Lisa Card Primary Care Provider Unavailab Sal Omalley Unavailable [phone] Anne Lin Unavailable [phone] Encounters Encounter Location Date Provider Diagnosis [address] [address] 08/13/2024 Anne Lin Plan Of Treatment Next Appt Details Provider Name:Sal Mace , 05/06/2025 02:30:00 PM, [address] [place] [address], [phone], Progress Notes * Yahaira JAINDOB: [birth year] (79 yo F)Acc No.[id number]:08/13/2024 Progress Notes Patient: Yahaira GOLDBERG Provider: Heber Lin DPM :1945 A ge:78 Y S ex:Female Date:08/13/2024 Address:[address], [place]-[address] Pcp:Lisa Card Subjective: * Chief Complaints: * * Medical History: Objective: * Vitals: Assessment: Plan: * Treatment: * Images: * The named appointment provid er may or may not be the originator of this progress note, and it is not deemed complete until electronically signed by the appointment provider. Sign off status: Pending * Provider: Heber Lin DPM Date: 0 08/13/2024 Generated for Jose Manuel Arnold/Maisha on: 06/10/2024 01:05 AM EST
--- NOTE | 2025-04-09 13:13 | A.SPINEOV_ITS ---
Intake Visit Reasons: 6 month f/u Intake Note: Ms. Herring is here today for her 6 month F/u appointment. Consultants Intern Required: No Allergies codeine Adverse Reaction (Intermediate, Verified 04/09/25 13:14) seizure oxycodone (From Percocet) Adverse Reaction (Intermediate, Verified 04/09/25 13:14) Nausea and Vomiting Assessment & Plan Assessment & Plan (1) S/P lumbar spinal fusion: Code(s): Z98.1 - Arthrodesis status Category: Medical Plan: Dear colleague, On 04/09/2025 I saw Yahaira Herring for 6 months postoperative visit. She underwent a minimally invasive L4-5 fusion in July 2024 for adjacent degenerative disc disease with a spondylolisthesis L4-5. As far as the back, she is doing well. She has the persistent preoperative drop foot on the right side which was expected. She tells me she has been in and out of the hospital and last summer for other issues such as a minor stroke and AFib. She is currently on Eliquis. She also developed swelling of her right knee for which he is being evaluated. A repeated lumbar x-ray today shows a stable L4-L5 construct. In summary, she recovered well from her lumbar fusion surgery. She will see me as needed. Sd Barr MD, PhD Spine Fellowship Trained Neurosurgeon Director, [facility] Coding Level of Care Code Est Pt Level 2 (64086) Diagnoses S/P lumbar spinal fusion Z98.1
--- OUTSIDE RECORDS SUMMARY | 2025-04-10 01:05 | XMS_ITS | Patient Health Record ---
Author Organization [facility] Address [address] [facility] [place] [address] Care Team Providers Care Hotel Services Supervisor Name Role Phone Stephie Lisa Primary Care Provider Unavailab Sal Omalley Unavailable [phone] Anne Lin Unavailable [phone] Allergies Allergen (clinical drug ingredient) Drug/Non Drug [...] Problem Acquired hammer toe of right foot (8293142268124 105) Other hammer toe(s) (acquired), right foot (M20.41) Active confirmed Problem Acquired hammer toe of left foot (5222110762185 103) Other hammer toe(s) (acquired), left foot (M20.42) Active confirmed Problem Type 2 diabetes mellitus with peripheral angiopathy (395276622) Type 2 diabetes mellitus with diabetic peripheral angiopathy without gangrene (E11.51) Active confirmed Q7(A), Q8(2B), Q9(1B,2C) Vital Signs Blood pressure diastolic 84 mm Hg 01/17/2025 Height 5 ft 1 in in 01/17/2025 Blood pressure systolic 123 mm Hg 01/17/2025 Weight 200 lbs 01/17/2025 BMI 37.79 kg/m2 01/17/2025 Procedures Procedure Date Ordered Date Performed Result Body Sit e 53545-YATHVBD NAIL, 1-5 10/15/2024 N/A 66760-NQGD SKIN LESIONS, 2 TO 4 10/15/2024 N/A P5225-OPZPVWLR DYSTROPHIC NAILS ANY # 10/15/2024 N/A 51438-YWJHPOX NAIL, 1-5 01/17/2025 N/A 93836-HADC SKIN LESIONS, 2 TO 4 01/17/2025 N/A W4124-EYGOOQIC DYSTROPHIC NAILS ANY # 01/17/2025 N/A Encounters Encounter Location Date Provider Diagnosis [address] [address] 10/15/2024 Sal Mace Type 2 diabetes mellitus with diabetic peripheral angiopathy without gangrene E11.51 ; Other hammer toe(s) (acquired), right foot M20.41 ; Tinea unguium B35.1 ; Pain in right toe(s) M79.674 ; Pain in left toe(s) M79.675 and Other hammer toe(s) (acquired), left foot M20.[address] [address] 01/17/2025 Sal Mace Type 2 diabetes mellitus with diabetic peripheral angiopathy without gangrene E11.51 ; Tinea unguium B35.1 ; Pain in right toe(s) M79.674 and Pain in left toe(s) M79.[address] [address] 07/24/2024 Anne Lin [address] [address] 07/31/2024 Anne Lin [address] [address] 09/26/2024 Anne Lin Assessments Encounter Date Diagnosis [...] Treatment Pending Test Test Name Order Date 72820-VZXHPUQ NAIL, 6 OR MORE 06/14/2012 96776-SNRSURB NAIL, 1-02/25/2013 62339-OMQIVFI NAIL, -10/15/2024 02796-EDXSUAE NAIL, 1-08/29/2012 35439-ABKNXDP NAIL, -11/28/2012 88035-LAYGCPD NAIL, 1-01/17/2025 22586-Bvtbylxd Plate 11/28/2012 18764-Drhsbizm Plate 02/25/2013 06155-Dpfjygvw Plate 06/14/2012 78527-Yygfqira Plate 08/29/2012 46337-ZNYM SKIN LESIONS, 2 TO 4 01/18/20 25 70738-IOHM SKIN LESIONS, 2 TO 4 10/16/19 25 E6970-BPUIQINF DYSTROPHIC NAILS ANY # D9328-OGMYRSOG DYSTROPHIC NAILS ANY # Next Appt Details Provider Name:Sal Mace , 05/06/2025 02:30:00 PM, [address] [place] [address], [phone], Insurance Providers Payer Name Payer Address Payer Phone Subscriber Number Group Number Insured Name Patient Relationship to Insured Coverage Start Date Coverage End Date Medicare National Govt [facility] [address] [place] [address] [id number] Yahaira Herring Self - patient is the insured 0 [employer] Blue Shield [address] [place] [address] [phone] [id number] Yahaira Herring Self - patient is the insured 0 Medical (General) History Medical History History ICD Code mumps measles high blood pressure chicken pox Pagets disease of bones arthritis Cataracts Menieres disease Reflux ( GERD) Sciatica Joint implants/screws Surgical History Surgery Date(Month/Year) nueroma left foot CABG surgery Back surgery 08/13/2024 Hospitalization History Reason Date(Month/Year) Bleeding from rectum 12[place]13 [place] [facility] [place]
--- OUTSIDE RECORDS SUMMARY | 2025-04-10 01:05 | XMS_ITS | Patient Health Record ---
Author Organization [facility] Physician Yoseph es Billing Info Address [address] [place] [address] [place] [address] Support Name Relationship Address Phone Tricia Real Emergency Contact [address] [place] [address] Yahaira Herring Guarantor Unknown Allergies Allergen [...] Problem Status W/U Status Risk Notes Problem 481468075012680 Spondylolisthesi s, lumbar region (M43.16) Active confirmed Problem 111853010 Radiculopathy, lumbar region (M54.16) Active confirmed Problem 22239117 Spinal stenosis, 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) Active confirmed Problem 700436676 Lumbar radiculopathy (M54.16) Active confirmed Problem 984736364 Lumbar spondylos is (M47.816) Active confirmed Problem 434836993 Lumbar radiculopathy, chronic (M54.16) Active confirmed Problem 256886433 Spondylolisthesi s, unspecified spinal region (M43.10) Active confirmed Problem 76820444 Hypertension, unspecified type (I10) Active confirmed Problem 714673329 Gastroesophageal reflux disease, unspecified whether esophagitis present (K21.9) Active confirmed Plan Of Treatment Future Test Test Name Order Date MRI-LUMBAR SPINE; W/O CONTRAST MATL (721 48) 08/18/2020 XRAY- SPINE LUMBAR AP AND LAT/SPOT (7210 0)([facility]) 11/12/2020 CT- LUMBAR SPINE W/O CONTRAST (00382)([facility]) 01/12/2021 XRAY- SPINE LUMBAR AP AND LAT/SPOT (7210 0)([facility]) 03/16/2021 CT- [facility]O [facility]AST (95439[facility] 07/13[facility] Insurance Providers Payer Name Payer Address Payer Phone Subscriber Number Group Number Insured Name Patient Relationship to Insured Coverage Start Date Coverage End Date MEDICARE [place] PART B [address] [place], [place] [id number] Yahaira Herring Self - patient is the insured [facility] [id number] [address] [place], [place] [id number] Yahaira Herring Self - patient is the insured Medical (General) History Medical History History ICD Code Lumbar radiculopathy Hypertension, unspecified type I10 Gastroesophageal reflux disease, unspeci fied whether esophagitis present K21.9 Spondylolisthesis, unspecified spinal re gion M43.10 Surgical History Surgery Date(Month/Year) hysterectomy gall bladder surgery appendectomy breast surgery Hospitalization History Reason Date(Month/Year) See Above
--- OUTSIDE RECORDS SUMMARY | 2025-04-10 01:06 | XMS_ITS | Patient Health Record ---
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 Name Role Phone Karyna Clarke Unavailable [phone] Reason For Referral No Information Medications Medication SIG (Take, Route, Frequency, Duration) Notes Start Date End Date Status hydroCHLOROthiazide 1 ORAL daily; Duration: -3 [facility] 09/24/2012 Active Citalopram Hydrobromide 20MG ORAL; Duration: -3 [facility] [place] CeleBREX 200MG ORAL; Duration: -3 [facility] [place] 10/15/2013 Active Vitamin E 200UNITS 1 ORAL daily; Duration: -3 [facility] [place] 09/24/2012 Active Atenolol 25MG 1 ORAL DAILY; Duration: -3 [facility] [place] 09/24/2012 Active Calcium 1 ORAL daily; Duration: -3 [facility] [place] 09/24/2012 Active Vitamin D3 1000 IU ORAL daily; Duration : -3 [facility] [place] 09/24/2012 Active [place] Jelly 1 ORAL daily; Duration: -3 [facility] [place] 09/24/2012 Active Problems Problem Type SNOMED Code ICD Code Onset Dates Problem Status W/U Status Risk Notes Problem Menopausal symptom (30001766) Symptomatic menopausal or female climacteric states (627.2) Active confirmed Major Problem Gynecological examination normal (556152173552994) Routine gynecological examination (V72.31) Active confirmed Diag Problem Exercises teaching, guidance, and counseling (856374697) Exercise counseling (V65.41) Active confirmed Diag Problem Screening for malignant neoplasm of colon (554868081) Special screening for malignant neoplasms, colon (V76.51) Active confirmed Major Plan Of Treatment No Information Insurance Providers Payer Name Payer Address Payer Phone Subscriber Number Group Number Insured Name Patient Relationship to Insured Coverage Start Date Coverage End Date MEDICARE [address] [place], [place] [id number] NATALY JAIN Self - patient is the insured 1 MEDEX [address] [place] [address] [phone] [id number] SILVESTRE JAINRIETTA Self - patient is the insured 1
--- OUTSIDE RECORDS SUMMARY | 2025-04-10 01:06 | XMS_ITS | Clinical Summary ---
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
== END 2025-04-09 14:57 | disposition home or self-care (01) ==
LOC: HO.HNS 13:13
PROVIDERS: Visit Provider Neurological Surgery
DX: Z98.1 Arthrodesis status (principal)
CPT/HCPCS: 99212

== ENCOUNTER → 2025-04-09 14:23 | Outpatient (BNV) | payer MEDICARE, SELFPAY | PROVIDERS: Visit Provider Radiology Body Imaging | DX: M46.1 Sacroiliitis, not elsewhere classified (principal) | CPT/HCPCS: 72110 ==

== ENCOUNTER 2025-04-23 14:00 | Outpatient (RCR) | payer MEDICARE, SELFPAY ==
--- NOTE | 2025-04-11 12:22 | MHC.PT.EP ---
[facility] [place] [facility] [place] [facility] [place] [facility] [address] Xiang [place] [address] [phone] F: [phone] F: [phone] F: [phone] F: [phone] Physical Therapy Plan of Care Date of Evaluation: 04/10/25 Date of Surgery: n/a Diagnosis: chronic R SI joint pain Assessment: Patient is an 79 year old female presenting to PT with complaints of pain in her R low back. Pt reports onset of pain is residual from lumbar surgery in July 2024. She presents today with impairments in pain, lumbar ROM, hip strength, gait. Pt's current occupation is retired, with baseline physical activities including ambulating, ADLs, standing. 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 Clinical presentation today is most consistent with signs and sx associated with R low back pain and pt will benefit from skilled PT 2 week x 4 weeks to address the following problems and impairments noted upon evaluation: pain, lumbar ROM, hip strength, gait. These problems limit the patient with the following functional activities: ambulating, standing, ADLs. The prescribed treatment plan of care is medically necessary. 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 Pt was educated on HEP, role of PT, prognosis, POC. Frequency and Duration: The patient will be seen 2 x week x 4 weeks Short Term Goals: Pt will demonstrate compliance with wearing AFO during gait in 2 visits. Pt will demonstrate improved hip MMT strength by 1/3 grade in 2 weeks. 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 Pt will demonstrate ability to ambulate with AFO and RW with min to no pain in 4 weeks for improved access to the community. Treatment Plan: Modalities to reduce pain, spasms and effusion. Manual therapy to restore motion and function. Therapeutic exercise to improve strength and flexibility. Neuromuscular re-education for posture and balance. Therapeutic activities to return to functional activities of daily living. Electronically signed by: Hamida Margie, PT, DPT< ATC Please sign and return to therapist. Thank you for your referral.
--- NOTE | 2025-05-02 11:19 | MHC.PT.DC ---
[facility] [place] [facility] [place] [facility] [place] [facility] [address] [phone] F: [phone] F: [phone] F: [phone] F: [phone] Physical Therapy Discharge Report Diagnosis: chronic R SI joint pain Date of Surgery: n/a Date of Evaluation: 04/10/25 Date of Discharge: 05/02/25 Treatments to Date: 2 Cancellations to Date: 1 No Shows to Date: 0 Discharge Status: Patient Elected to Stop Discharge Summary: Pt called and cancelled her last appointment stating she would like to just wait until after her procedure to continue with PT. Therefore pt d/c per her request. Reminded her she needs clearance from her addiction specialist before returning to PT after her procedure. Electronically signed by: Hamida Hanson, PT, DPT, ATC Please sign and return to therapist. Thank you for your referral.
== END 2025-05-02 11:19 | disposition home or self-care (01) ==
LOC: HO.PTCHIC 14:00
PROVIDERS: PCP Internal Medicine
DX: M53.3 Sacrococcygeal disorders, not elsewhere classified (principal); G89.29 Other chronic pain; M70.71 Other bursitis of hip, right hip
CPT/HCPCS: 97110; 97163